=== PATIENT | male | born 1955 | race Caucasian/White ===

== ENCOUNTER 2016-08-07 06:25 | Observation (INO) | payer OTHER ==
[2016-08-07] MEDS ORDERED: ACETAMINOPHEN TAB 500 MG TAB PO STA (06:47)
--- NOTE | 2016-08-07 06:47 | ED ---
General Adult HPI - General Source: patient Mode of arrival: ambulatory Limitations: no limitations <Chel Hassan - Last Filed: 08/07/16 06:59> <Otis Zuniga - Last Filed: 08/07/16 09:07> - General Chief complaint: Chest Pain Stated complaint: Chest pain Time Seen by Provider: 08/07/16 06:37 - History of Present Illness Initial comments: 61 years old gentleman been feeling pretty lousy had a chest pain last night on the left side then he got dizzy then he was nauseous and then now after midnight he had a quite a bit of shakes when he was in the bed he had a hard time getting warm and he had a fever as well and he has a fever on arrival to the ER. He has headache no neck stiffness his muscles pain cramping for the last 34 days no chest pain or shortness of breath no pleuritic chest pain no abdominal pain no frequency urgency dysuria he has been nauseous (Chel Hassan) - Related Data Home Medications Medication Instructions Recorded Confirmed Anastrozole [Arimidex] 0.5 mg PO Q72H 08/07/16 08/07/16 Aspirin EC [Ecotrin] 325 mg PO DAILY 08/07/16 08/07/16 Doxazosin Mesylate 2 mg PO HS 08/07/16 08/07/16 Ergocalciferol (Vitamin D2) 50,000 unit PO MO 08/07/16 08/07/16 [Vitamin D2] Indapamide [Lozol] 2.5 mg PO DAILY 08/07/16 08/07/16 Losartan Potassium 100 mg PO DAILY 08/07/16 08/07/16 Metoprolol Succinate [Toprol XL] 50 mg PO BID 08/07/16 08/07/16 Potassium Chloride [Klor-Con 20] 20 meq PO BID 08/07/16 08/07/16 Spironolactone 50 mg PO DAILY 08/07/16 08/07/16 Testosterone Cypionate 100 mg IM Q14D 08/07/16 08/07/16 [Depo-Testosterone] amLODIPine [Norvasc] 5 mg PO DAILY 08/07/16 08/07/16 cloNIDine 0.3 MG/24HR PATCH 1 patch TRANSDERM MO 08/07/16 08/07/16 [Catapres-Tts 0.3MG Patch] Allergies Allergy/AdvReac Type Severity Reaction Status Date / Time Penicillins Allergy Unknown Verified 08/07/16 07:56 Childhood amlodipine [From Lotrel] AdvReac ITCHING/SWE Verified 08/07/16 07:56 LLING benazepril [From Lotrel] AdvReac ITCHING/SWE Verified 08/07/16 07:56 LLING Review of Systems ROS Other: All systems not noted in ROS Statement are negative. <Chel Hassan - Last Filed: 08/07/16 06:59> ROS Other: All systems not noted in ROS Statement are negative. <Otis Zuniga - Last Filed: 08/07/16 09:07> ROS Statement: Those systems with pertinent positive or pertinent negative responses have been documented in the HPI. Past Medical History Past Medical History: Hypertension, Myocardial Infarction (OK) History of Any Multi-Drug Resistant Organisms: None Reported Past Surgical History: Heart Catheterization With Stent, Joint Replacement, Orthopedic Surgery Additional Past Surgical History / Comment(s): Bilateral Elbow Surgery; Left knee Replacement; Right knee arthroscopy Past Psychological History: No Psychological Hx Reported Smoking Status: Never smoker Past Alcohol Use History: None Reported Past Drug Use History: None Reported <Chel Hassan - Last Filed: 08/07/16 06:59> General Exam Limitations: no limitations <Chel Hassan - Last Filed: 08/07/16 06:59> <Otis Zuniga - Last Filed: 08/07/16 09:07> - General Exam Comments Initial Comments: General: The patient is awake and alert, in no distress, and does not appear acutely ill. Skin: Skin is warm and dry and no rashes or lesions are noted. Eye: Pupils are equal, round and reactive to light, extra-ocular movements are intact; there is normal conjunctiva bilaterally. Ears, nose, mouth and throat: There are moist mucous membranes and no oral lesions. Neck: The neck is supple, there is no tenderness Cardiovascular: There is a regular rate and rhythm. No murmur, rub or gallop is appreciated. Respiratory: To auscultation bilateral, decreased breath sounds at the bases Gastrointestinal: Soft, non-distended, non-tender abdomen without masses or organomegaly noted. There is no rebound or guarding present. Bowel sounds are unremarkable. Back: There is no tenderness to palpation in the midline. There is no obvious deformity. Musculoskeletal: Normal ROM, no tenderness, There is no pedal edema. There is no calf tenderness or swelling. No cords were appreciated. Neurological: CN II-XII intact, Cranial nerves III through XII are intact. There are no obvious motor or sensory deficits. Coordination appears grossly intact. Speech is normal. Psychiatric: Cooperative, appropriate mood & affect, normal judgment. (Chel Hassan) Course <Chel Hassan - Last Filed: 08/07/16 06:59> <Otis Zuniga - Last Filed: 08/07/16 09:07> Vital Signs 08/07/16 08/07/16 08/07/16 06:33 08:00 08:30 Temperature 101.4 F H Pulse Rate 106 H 78 72 Respiratory 18 18 18 Rate Blood Pressure 145/98 137/77 127/74 O2 Sat by Pulse 93 L 93 L 95 Oximetry - Reevaluation(s) Reevaluation #1: 08/07/16 06:59 Patient's labs have been ordered and morning shift Dr. Zuniga will follow-up on the and patient is endorsed to Dr. Zuniga (Chel Hassan) EKG Findings - EKG Comments: EKG Findings:: EKG is a normal sinus rhythm ventricular rate is 99 UT interval is 160 QRS duration is 1 or 2 QT/QTc is 352/451 review of this EKG reveals some slight ST depression in lead [address] elevation or ST depression noticed in of the leads <Chel Hassan - Last Filed: 08/07/16 06:59> Medical Decision Making - Lab Data Result diagrams: 08/07/16 06:45 <Chel Hassan - Last Filed: 08/07/16 06:59> - Lab Data Result diagrams: 08/07/16 06:45 08/07/16 06:45 - Radiology Data Radiology results: report reviewed (Review the imaging shows no evidence of acute findings.), image reviewed <Otis Zuniga - Last Filed: 08/07/16 09:07> - Medical Decision Making I did discuss findings with the patient patient has no immediately obvious source for his fever. 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 He currently has no chest pain he will be admitted for evaluation of his chest pain. Influenza swab will be ordered. (Otis Zuniga) - Lab Data Lab Results 08/07/16 08/07/16 08/07/16 Range/Units 06:45 06:45 06:45 WBC 10.8 H (3.8-10.6) k/uL RBC 5.29 (4.30-5.90) m/uL Hgb 16.0 (13.0-17.5) gm/dL Hct 47.8 (39.0-53.0) % MCV 90.4 (80.0-100.0) fL MCH 30.2 (25.0-35.0) pg MCHC 33.4 (31.0-37.0) g/dL RDW 14.7 (11.5-15.5) % Plt Count 249 (150-450) k/uL Neutrophils % 80 % Lymphocytes % 11 % Monocytes % 4 % Eosinophils % 3 % Basophils % 1 % Neutrophils # 8.6 H (1.3-7.7) k/uL Lymphocytes # 1.2 (1.0-4.8) k/uL Monocytes # 0.5 (0-1.0) k/uL Eosinophils # 0.3 (0-0.7) k/uL Basophils # 0.1 (0-0.2) k/uL PT (9.0-12.0) sec INR (<1.1) APTT (22.0-30.0) sec Sodium 140 (137-145) mmol/L Potassium 4.2 (3.5-5.1) mmol/L Chloride 107 (98-107) mmol/L Carbon Dioxide 22 (22-30) mmol/L Anion Gap 11 mmol/L BUN 18 (9-20) mg/dL Creatinine 0.89 (0.66-1.25) mg/dL Est GFR (MDRD) Af Amer >60 (>60 ml/min/1.73 sqM) Est GFR (MDRD) Non-Af >60 (>60 ml/min/1.73 sqM) Glucose 116 H (74-99) mg/dL Plasma Lactic Acid Mike (0.7-2.0) mmol/L Calcium 9.9 (8.4-10.2) mg/dL Total Bilirubin 1.3 (0.2-1.3) mg/dL AST 32 (17-59) U/L ALT 49 (21-72) U/L Alkaline Phosphatase 72 (38-126) U/L Total Creatine Kinase 139 (55-170) U/L CK-MB (CK-2) 1.1 (0.0-2.4) ng/mL CK-MB (CK-2) Rel Index 0.8 Troponin I 0.016 (0.000-0.034) ng/mL Total Protein 7.5 (6.3-8.2) g/dL Albumin 4.4 (3.5-5.0) g/dL Urine Color Urine Appearance (Clear) Urine pH (5.0-8.0) Ur Specific Creole (1.001-1.035) Urine Protein (Negative) Urine Glucose (UA) (Negative) Urine Ketones (Negative) Urine Blood (Negative) Urine Nitrite (Negative) Urine Bilirubin (Negative) Urine Urobilinogen (<2.0) mg/dL Ur Leukocyte Esterase (Negative) Urine RBC (0-5) /hpf Urine WBC (0-5) /hpf Ur Squamous Epith Cells (0-4) /hpf Urine Mucus (None) /hpf 08/07/16 08/07/16 08/07/16 Range/Units 06:45 06:45 08:07 WBC (3.8-10.6) k/uL RBC (4.30-5.90) m/uL Hgb (13.0-17.5) gm/dL Hct (39.0-53.0) % MCV (80.0-100.0) fL MCH (25.0-35.0) pg MCHC (31.0-37.0) g/dL RDW (11.5-15.5) % Plt Count (150-450) k/uL Neutrophils % % Lymphocytes % % Monocytes % % Eosinophils % % Basophils % % Neutrophils # (1.3-7.7) k/uL Lymphocytes # (1.0-4.8) k/uL Monocytes # (0-1.0) k/uL Eosinophils # (0-0.7) k/uL Basophils # (0-0.2) k/uL PT 10.9 (9.0-12.0) sec INR 1.1 (<1.1) APTT 23.6 (22.0-30.0) sec Sodium (137-145) mmol/L Potassium (3.5-5.1) mmol/L Chloride (98-107) mmol/L Carbon Dioxide (22-30) mmol/L Anion Gap mmol/L BUN (9-20) mg/dL Creatinine (0.66-1.25) mg/dL Est GFR (MDRD) Af Amer (>60 ml/min/1.73 sqM) Est GFR (MDRD) Non-Af (>60 ml/min/1.73 sqM) Glucose (74-99) mg/dL Plasma Lactic Acid Mike 1.8 (0.7-2.0) mmol/L Calcium (8.4-10.2) mg/dL Total Bilirubin (0.2-1.3) mg/dL AST (17-59) U/L ALT (21-72) U/L Alkaline Phosphatase (38-126) U/L Total Creatine Kinase (55-170) U/L CK-MB (CK-2) (0.0-2.4) ng/mL CK-MB (CK-2) Rel Index Troponin I (0.000-0.034) ng/mL Total Protein (6.3-8.2) g/dL Albumin (3.5-5.0) g/dL Urine Color Yellow Urine Appearance Clear (Clear) Urine pH 5.5 (5.0-8.0) Ur Specific Creole 1.020 (1.001-1.035) Urine Protein Negative (Negative) Urine Glucose (UA) Negative (Negative) Urine Ketones Negative (Negative) Urine Blood Trace H (Negative) Urine Nitrite Negative (Negative) Urine Bilirubin Negative (Negative) Urine Urobilinogen <2.0 (<2.0) mg/dL Ur Leukocyte Esterase Negative (Negative) Urine RBC 1 (0-5) /hpf Urine WBC <1 (0-5) /hpf Ur Squamous Epith Cells <1 (0-4) /hpf Urine Mucus Rare H (None) /hpf Disposition <Chel Hassan - Last Filed: 08/07/16 06:59> <Otis Zuniga - Last Filed: 08/07/16 09:07> Clinical Impression: Unstable angina pectoris, Fever of unknown origin (FUO) Disposition: ADMITTED IP TO THIS HOSP Condition: Stable Referrals: Bryce Astudillo MD [Primary Care Provider] - 1-2 days
[2016-08-07] MEDS: SODIUM CHLORIDE 0.9% 500 ML IV SCH ×2 (06:56→08:00)
[2016-08-07 06:57] LABS: Basophils # (A) 0.1 k/uL (0-0.2); Basophils % (A) 1 %; CH 30.5; CHCM 33.9; Eosinophils # (A) 0.3 k/uL (0-0.7); Eosinophils % (A) 3 %; HCT 47.8 % (39.0-53.0); HDW 2.71; Luc % (Auto) 1; Lymphocytes # (A) 1.2 k/uL (1.0-4.8); Lymphocytes % (A) 11 %; MCH 30.2 pg (25.0-35.0); MCHC 33.4 g/dL (31.0-37.0); MCV 90.4 fL (80.0-100.0); Mean Platelet Volume 7.1; Monocytes # (A) 0.5 k/uL (0-1.0); Monocytes % (A) 4 %; Neutrophils # (A) 8.6 k/uL (1.3-7.7); Neutrophils % (A) 80 %; RBC 5.29 m/uL (4.30-5.90); RDW 14.7 % (11.5-15.5); WBC 10.8 k/uL (3.8-10.6); WBC (Perox) 10.74
--- NOTE | 2016-08-07 07:01 | XR ---
EXAMINATION TYPE: XR chest 2V DATE OF EXAM: 08/07/2016 COMPARISON: 06/18/2010 HISTORY: Shortness of breath TECHNIQUE: Frontal and lateral views of the chest are obtained. FINDINGS: Scattered senescent parenchymal changes noted. Hyperinflation compatible with COPD. No evidence for infiltrate. No evidence for atelectasis. Heart size is stable. Mediastinal structures are stable and grossly unremarkable. No evidence for hilar prominence. Degenerative changes dorsal spine. IMPRESSION: 1. No evidence for acute pulmonary disease.
[2016-08-07 07:08] LABS: ALT 49 U/L (21-72); AST 32 U/L (17-59); Alkaline Phosphatase 72 U/L (38-126); Anion Gap 11 mmol/L; Blood Urea Nitrogen 18 mg/dL (9-20); Calcium 9.9 mg/dL (8.4-10.2); Carbon Dioxide 22 mmol/L (22-30); Chloride 107 mmol/L (98-107); Glucose 116 mg/dL (74-99); Non-African American GFR(MDRD) >60 (>60 ml/min/1.73 sqM); Potassium 4.2 mmol/L (3.5-5.1); Sodium 140 mmol/L (137-145); Total Bilirubin 1.3 mg/dL (0.2-1.3); Total Protein 7.5 g/dL (6.3-8.2)
[2016-08-07 07:13] LABS: INR 1.1 (<1.1); Partial Thromboplastin Time 23.6 sec (22.0-30.0); Prothrombin Time 10.9 sec (9.0-12.0)
[2016-08-07 07:54] LABS: Creatine Kinase MB 1.1 ng/mL (0.0-2.4); Troponin I 0.016 ng/mL (0.000-0.034)
[2016-08-07 08:22] LABS: Appearance,Urine Clear (Clear); Bilirubin,Urine Negative (Negative); Glucose,Urine (UA) Negative (Negative); Ketones,Urine Negative (Negative); Leukocyte Esterase,Urine Negative (Negative); Mucus,Urine Rare /hpf; Nitrite,Urine Negative (Negative); PH, Urine 5.5 (5.0-8.0); Particle Count 1535; Protein,Urine Negative (Negative); RBC,Urine 1 /hpf (0-5); Squamous Epithelial Cell,Urine <1 /hpf (0-4); UA Billing (MACRO vs. MICRO) MICRO; Urobilinogen,Urine <2.0 mg/dL (<2.0); WBC,Urine <1 /hpf (0-5)
[2016-08-07] MEDS ORDERED: NITROGLYCERIN SL TABS 0.4 MG TAB SUBLINGUAL PRN (09:08)
[2016-08-07] MEDS ORDERED: HEPARIN SODIUM,PORCINE 5,000 UNIT/ML 1 ML VIAL IV ONE (09:08)
[2016-08-07] MEDS ORDERED: HEPARIN SODIUM,PORCINE/D5W PMX 25,000 UNIT in DEXTROSE/WATER 1 500ML.BAG IV SCH (09:15)
[2016-08-07] MEDS: SODIUM CHLORIDE 0.9% 1,000 ML IV SCH (09:26)
[2016-08-07] MEDS ORDERED: NITROGLYCERIN OINT 1 INCH/GM PACKET TOPICAL SCH (12:00)
[2016-08-07] MEDS ORDERED: ANASTROZOLE 1 MG TAB PO SCH (12:00)
[2016-08-07] MEDS ORDERED: LOSARTAN 50 MG TAB PO STA (12:36)
[2016-08-07] MEDS ORDERED: METOPROLOL SUCCINATE (ER) 50 MG TAB.ER.24H PO STA (12:37)
[2016-08-07] MEDS ORDERED: POTASSIUM CHLORIDE ER 20 MEQ TAB.ER PO STA (12:37)
[2016-08-07] MEDS ORDERED: SPIRONOLACTONE 25 MG TAB PO STA (12:37)
[2016-08-07] MEDS ORDERED: INDAPAMIDE 2.5 MG TAB PO ONE (12:45)
[2016-08-07] MEDS: ONDANSETRON 4 MG/2 ML VIAL IVP PRN ×2 (13:11→19:40)
[2016-08-07 13:46] LABS: Creatine Kinase MB 1.2 ng/mL (0.0-2.4); Troponin I 0.013 ng/mL (0.000-0.034)
--- NOTE | 2016-08-07 13:59 | CONS ---
DATE OF CONSULTATION: CHIEF COMPLAINT: Chest pain. This is a 61-year-old gentleman with history of coronary artery disease, status post angioplasty, hypertension, and dyslipidemia who presented to hospital complaining of chest discomfort. He also has fever with chills. His discomfort is left-sided, sharp. He does not have any diaphoresis and his pain is unrelated to exertion. At the time of my evaluation, he appears comfortable at rest and is free of symptoms. White cell count is elevated. Temperature is mildly elevated. EKG shows sinus rhythm with nonspecific ST-T wave changes. Cardiac enzyme, so far has been negative. His C-reactive protein is elevated. Influenza testing is negative. Past medical history is significant for coronary artery disease, status post angioplasty, hypertension. Medications include Arimidex, Catapres 0.3 mg, Norvasc 5 q. daily, testosterone, Aldactone, K-Dur, Toprol-XL 50 b.i.d., losartan 100 q. daily, Lozol, vitamin D, aspirin and doxazosin. Patient is allergic to LOTREL and PENICILLIN. Family history is negative for premature coronary artery disease. Social history is negative for current smoking, EtOH abuse or drug abuse. REVIEW OF SYSTEMS: HEENT is unremarkable. CARDIAC: As described above. RESPIRATORY: As described above. GI: Negative. GENITOURINARY: Negative. ALLERGY/IMMUNOLOGY: Negative. SKIN: Negative. MUSCULOSKELETAL: Negative. ENDOCRINE: Negative. DERMATOLOGIC: Negative. ONCOLOGICAL: Negative. CONSTITUTIONAL: Significant for fever, chills. The rest of the system review is not relevant. On exam, T-max is 99.2, heart rate is 78. Blood pressure 139/80, O2 sat is 96% on room air. There is no jugular venous distention. Carotid upstroke is normal. There is no bruit. Chest exam reveals good air entry bilaterally. Heart exam reveals first and second heart sounds. No gallop. No murmur, no rub. Abdomen is soft, nontender. Exam of the extremities did not reveal edema. Peripheral pulses are felt. Labs show a hemoglobin of 16, platelet count is 249. Potassium is 4.2. Creatinine is 0.89. EKG does not reveal acute ischemic changes. ASSESSMENT: 1. Atypical chest pain, probably musculoskeletal. 2. Coronary artery disease, status post angioplasty. 3. Febrile illness. PLAN: Will obtain serial CPKs and troponins. If these are negative, please stop the heparin. Will obtain a 2-D echo on him tomorrow morning. The afebrile illness is currently being worked up by Dr. Puga, the hospitalist.
[2016-08-07] MEDS: amLODIPine 10 MG TAB PO SCH (14:57)
[2016-08-07] MEDS: POTASSIUM CHLORIDE ER 20 MEQ TAB.ER PO SCH (19:40)
[2016-08-07] MEDS: METOPROLOL SUCCINATE (ER) 50 MG TAB.ER.24H PO SCH (19:40)
--- NOTE | 2016-08-07 19:55 | HP ---
DATE OF ADMISSION: 08/07/2016 PRESENTING COMPLAINT: Fever. HISTORY OF PRESENTING COMPLAINT: This is a 61-year-old patient of Dr. Astudillo whose chronic stable medical conditions include coronary artery disease with stent [place] [address] Deysi Ndiaye, hypertension, osteoarthritis, peripheral artery disease. Patient presented with 24 hours of chills, shaking. Denies any urinary symptoms. Denies any cough. No skin changes. Patient has a slight headache. No nausea or vomiting. No change in vision. Patient has slight discomfort in the left chest wall; very unlike his previous cardiac presentation. There was no sweating. No shortness of breath. Hence patient is admitted. Patient had a second episode of having some chills after I saw this patient this morning. REVIEW OF SYSTEMS: CONSTITUTIONAL: Chills, febrile. HEENT: None. RESPIRATORY: None. CARDIOVASCULAR: No precordial pain. GASTROINTESTINAL: None. GENITOURINARY: None. MUSCULOSKELETAL: Arthritic pain, especially in the knees. DERMATOLOGICAL: None. HEMATOLOGICAL: None. LYMPHATICS: None. PSYCHIATRY: None. NEUROLOGICAL: None. PAST HISTORY: 1. Coronary artery disease with stent in 2007. 2. Hypertension. 3. Osteoarthritis. 4. Peripheral artery disease. PAST SURGICAL HISTORY: 1. Cardiac catheterization with stent. 2. Joint replacement. 3. ( ) left elbow surgery. 4. Left knee replacement. 5. Right knee arthroscopy. 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 Smoked for 20 years; stopped in 2005. No alcohol. FAMILY HISTORY: Father had dementia. HOME MEDICATIONS: 1. Arimidex 0.5 mg q.72 hours. 2. Catapres 0.3 mg patch. 3. Norvasc 5 mg a day. 4. Depo-testosterone 100 mg IM q.14 days. 5. Aldactone 50 mg a day. 6. Potassium 20 mEq b.i.d. 7. Toprol XL 50 mg b.i.d. 8. Losartan 100 mg p.o. daily. 9. Lozol 2.5 mg p.o. daily. 10. Vitamin D2, 50,000 units p.o. on Friday. 11. Doxazosin 2 mg p.o. at bedtime. 12. Aspirin 325 p.o. daily. ALLERGIES: 1. PENICILLIN. 2. AMLODIPINE. 3. BENAZEPRIL. On examination, T-max 101.4, pulse 106, respiration 18, blood pressure 145/98, pulse ox 93% on room air on presentation. GENERAL APPEARANCE: Well built; BMI of 40.3. Sitting up. Comfortable. EYES: Pupils equal. Conjunctivae normal. HEENT: Oral cavity normal. NECK: JVD not raised. Mass not palpable. RESPIRATORY: Effort normal. Lungs are clear. CARDIOVASCULAR: First and second sounds normal. No edema. ABDOMEN: Soft, nontender. Liver and spleen not palpable. LYMPHATIC: No lymph node palpable in neck or axillae. PSYCHIATRY: Alert and oriented x3. Mood and affect normal. NEUROLOGICAL: Pupils equal. Cranial nerves grossly intact. Power and sensation grossly intact. INVESTIGATIONS: White count 10.8, hemoglobin 16. Potassium 4.2. BUN and creatinine are normal. CRP is 18.2. UA negative for nitrite, leukocyte esterase. Influenza A and B negative. EKG normal sinus rhythm. Chest x-ray nil acute. ASSESSMENT: 1. Acute febrile illness with no respiratory and no urinary symptoms. No skin changes. Patient just felt tired. This could be an acute viral syndrome. At this point, patient looks rather comfortable. Will hold off using any empiric antibiotic therapy. Check fever regularly. 2. Atypical chest pain, probably musculoskeletal. 3. Coronary artery disease with history of stent in 2007. 4. Essential hypertension. 5. Primary osteoarthritis, especially in the knees. 6. Peripheral artery disease. 7. Morbid obesity; body mass index of 40.3. PLAN: Patient's blood cultures were done. Cardiology was consulted, though this pain seems to be very atypical. Will also get an ID opinion. Will hold off any antibiotic at this point, as there is no obvious source. Care was discussed with the patient and his at the bedside.
[2016-08-07 20:02] LABS: Creatine Kinase MB 0.9 ng/mL (0.0-2.4); Troponin I 0.019 ng/mL (0.000-0.034)
[2016-08-07] MEDS ORDERED: DOXAZOSIN 2 MG TAB PO SCH (21:00)
[2016-08-07] MEDS ORDERED: LEVOFLOXACIN 750 MG TAB PO SCH (22:30)
[2016-08-07] MEDS ORDERED: AZITHROMYCIN 500 MG TAB PO SCH (23:00)
--- NOTE | 2016-08-08 07:27 | XR ---
EXAMINATION TYPE: XR chest 2V DATE OF EXAM: 08/08/2016 COMPARISON: Chest x-ray from yesterday. HISTORY: Fever and pneumonia. TECHNIQUE: Frontal and lateral views of the chest are obtained. FINDINGS: There is chronic parenchymal change without suspicious new focal air space opacity, pleura l effusion, or pneumothorax seen. The cardiac silhouette size is upper limits of normal with ectatic aorta redemonstrated. The osseous structures are intact. IMPRESSION: Chronic changes without suspicious acute pulmonary process. No significant change from p rior.
[2016-08-08 08:17] LABS: Basophils % (A) 1 %; CH 30.4; CHCM 34.3; Eosinophils # (A) 0.1 k/uL (0-0.7); Eosinophils % (A) 2 %; HCT 45.3 % (39.0-53.0); HDW 2.88; HGB 15.5 gm/dL (13.0-17.5); Luc # (Auto) 0.23; Luc % (Auto) 4; Lymphocytes # (A) 1.7 k/uL (1.0-4.8); Lymphocytes % (A) 29 %; MCH 30.5 pg (25.0-35.0); MCHC 34.2 g/dL (31.0-37.0); MCV 89.2 fL (80.0-100.0); Monocytes # (A) 0.6 k/uL (0-1.0); Monocytes % (A) 9 %; Neutrophils # (A) 3.4 k/uL (1.3-7.7); Neutrophils % (A) 56 %; RBC 5.08 m/uL (4.30-5.90); RDW 14.5 % (11.5-15.5); WBC 6.1 k/uL (3.8-10.6); WBC (Perox) 5.89
[2016-08-08 08:31] LABS: Anion Gap 10 mmol/L; Blood Urea Nitrogen 15 mg/dL (9-20); Carbon Dioxide 27 mmol/L (22-30); Chloride 104 mmol/L (98-107); Cholesterol 176 mg/dL (<200); Glucose 109 mg/dL (74-99); HDL Cholesterol 35 mg/dL (40-60); Non-African American GFR(MDRD) >60 (>60 ml/min/1.73 sqM); Sodium 141 mmol/L (137-145); Triglycerides 172 mg/dL (<150)
[2016-08-08] MEDS: amLODIPine 10 MG TAB PO SCH (08:44)
[2016-08-08] MEDS: POTASSIUM CHLORIDE ER 20 MEQ TAB.ER PO SCH (08:45)
[2016-08-08] MEDS: METOPROLOL SUCCINATE (ER) 50 MG TAB.ER.24H PO SCH (08:45)
--- NOTE | 2016-08-08 08:48 | PN ---
A 61-year-old gentleman is admitted to hospital primarily with febrile illness and Cardiology had been consulted for chest pain. His chest discomfort is atypical, probably musculoskeletal. He has had 3 sets of cardiac enzymes that are negative. At the time of my evaluation this morning, he appears comfortable at rest and is free of chest pain. On exam, T-max is 101.9. Vital signs are stable. There is no jugular venous distention. Chest exam reveals diminished air entry at the bases. Heart exam reveals first and second heart sounds. No gallop. Abdomen is soft. Exam of the extremities did not reveal edema. Peripheral pulses are felt. Troponins are negative. ASSESSMENT: 1. Atypical chest pain, probably musculoskeletal. 2. History of coronary artery disease. PLAN: Patient is doing well this morning. Will review the echocardiogram once the results are available. From my standpoint, he can be discharged home and outpatient followup arranged with Dr. Deysi Ndiaye. I am going to stop the IV heparin at this time.
[2016-08-08] MEDS ORDERED: amLODIPine 5 MG TAB PO SCH (09:00)
[2016-08-08] MEDS ORDERED: LOSARTAN 50 MG TAB PO SCH (09:00)
[2016-08-08] MEDS ORDERED: INDAPAMIDE 2.5 MG TAB PO SCH (09:00)
[2016-08-08] MEDS ORDERED: ASPIRIN 325 MG TAB PO SCH ×2 (09:00)
[2016-08-08] MEDS ORDERED: SPIRONOLACTONE 25 MG TAB PO SCH (09:00)
[2016-08-08] MEDS ORDERED: HEPARIN SODIUM,PORCINE 5,000 UNIT/ML 1 ML VIAL SQ SCH (09:00)
--- NOTE | 2016-08-08 10:52 | CONS ---
DATE OF CONSULTATION: DATE OF SERVICE: 08/07/2016 REASON FOR CONSULTATION: Fever of unknown origin. 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 The patient said that he woke up around 12:30 in the morning with rigors and chills. Patient has significant rigors and chills with associated headache. The headache was mostly generalized. The patient denies any photophobia or any nausea or vomiting. The patient denies having any URI symptom. Denies significant shortness of breath or cough. The patient did have some left-sided chest pain, described to be more of a dull aching pain. No abdominal pain. No nausea, no vomiting. No diarrhea. No burning or frequency of urine. With these symptoms, the patient was evaluated by the ER physician. The patient did have a chest x-ray that was reported to be no evidence of acute pulmonary disease. The patient did have a fever of 101.4 degrees Fahrenheit. UA has been done, which was negative. The patient did have influenza A and B, that was negative. White count was slightly elevated at 10.8 with CRP of 18.2. The patient has been admitted to the hospital. ID was consulted for further recommendation regarding his fever and antibiotic therapy. REVIEW OF SYSTEMS: CONSTITUTIONAL: Positive for weakness and a fever. EYES: No complaint. ENT: No complaint. RESPIRATORY: As per HPI. CARDIOVASCULAR: As per HPI. GENITOURINARY: No complaint. GASTROINTESTINAL: No complaint. MUSCULOSKELETAL: No complaint. INTEGUMENTARY: No complaint. PSYCHOLOGICAL: No complaint. ENDOCRINE: No complaint. NEUROLOGICAL: No complaint. PAST MEDICAL HISTORY: Significant for hypertension and LA. PAST SURGICAL HISTORY: PTCA with stent placement, joint replacement, bilateral elbow surgery, right knee arthroscopy. SOCIAL HISTORY: No history of smoking, drinking, or drug use. 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 FAMILY HISTORY: No pertinent findings noticed. Allergies to PENICILLIN, AMLODIPINE BENAZEPRIL, mostly with rash, no history of anaphylaxis. Medications currently include the patient is on Norvasc, Arimidex, aspirin, Catapres, Cardura, vitamin D2, heparin, Lozol, Cozaar, Toprol XL, Nitrostat, Zofran, K-Dur and Aldactone. On examination, blood pressure is 110/79 with a pulse of 91, temperature of 101.9. He is 98% on room air. General description is a middle age male lying in bed in no distress. No tachypnea or accessory muscle of respiration use. HEENT examination showed no pallor or scleral icterus. Oral mucous membranes dry. Minimal pharyngeal erythema. NECK: Trachea central. No thyromegaly. LUNGS: Unlabored breathing. Clear to auscultation anteriorly. No wheeze or crackles. HEART: S1, S2. Regular rate and rhythm . ABDOMEN: Soft, no tenderness. No guarding or rigidity. EXTREMITIES: No edema of feet. SKIN EXAMINATION: No rash or mass palpable. NEUROLOGICAL: The patient is awake, alert and oriented x3 and no signs of meningeal irritation. LABS: Hemoglobin is 16, white count of 10.8 with a BUN of 18, creatinine 0.89. Electrolytes have been normal. Liver enzymes are normal. CRP elevated 18.2. Urine has been negative. Influenza A and B serology has been. DIAGNOSTIC IMPRESSION AND PLAN: Patient with fever with no significant localized symptoms except the headache; however, the patient does not look toxic and did not have significant elevated white count. A question of possible aseptic meningitis needs to be ruled out. Other etiologies could be an early pneumonia, as no other clinical focus of infection abdomen was soft on clinical examination. Urine has been negative. No evidence of any cellulitis or joint swelling. PLAN: 1. start the patient on Rocephin 1 gram IV piggyback daily and Levaquin 750 daily. 2. Repeat a chest x-ray PA and lateral tomorrow. 3. If the fever persists and repeat chest x-ray is negative. will recommend obtaining a CSF examination. 4. Will follow up on his clinical condition and cultures to further adjust the medication if needed. Thank you for this consultation. Will follow this patient along with you. MICHAEL
--- NOTE | 2016-08-08 12:01 | ECHOF ---
Referral Reason:chest pain MEASUREMENTS -------- HEIGHT: 188.0 cm WEIGHT: 153.8 kg BP: 139/87 RVIDd: 3.9 cm (< 3.3) IVSd: 1.2 cm (0.6 - 1.1) LVIDd: 5.2 cm (3.9 - 5.3) LVPWd: 1.3 cm (0.6 - 1.1) IVSs: 2.3 cm LVIDs: 3.0 cm LVPWs: 1.8 cm LA Diam: 4.5 cm (2.7 - 3.8) Ao Diam: 3.9 cm (2.0 - 3.7) AV Cusp: 2.3 cm (1.5 - 2.6) LA Diam: 4.8 cm (2.7 - 3.8) MV EXCURSION: 27.679 mm (> 18.000) MV EF SLOPE: 85 mm/s (70 - 150) EPSS: 0.3 cm MV E Clark: 0.45 m/s MV DecT: 323 ms MV A Clark: 0.79 m/s MV E/A Ratio: 0.56 RAP: 5.00 mmHg RVSP: 31.05 mmHg FINDINGS -------- Sinus rhythm. This was a technically adequate study. Morbid Obesity There is mild concentric left ventricular hypertrophy. Overall left ventricular systolic function is low-normal with, an EF between 50 - 55 %. The right ventricle is normal in size. The left atrial size is normal. The right atrial size is normal. 1.5MG OF DEFINITY UTLIZED: 2 OR MORE WALL SEGMENTS NOT VISUALIZED. There is mild aortic valve sclerosis. There is no evidence of aortic regurgitation. Mild mitral annular calcification present. Mild mitral regurgitation is present. Mild tricuspid regurgitation present. There is no evidence of pulmonary hypertension. The right ventricular systolic pressure, as measured by Doppler, is 31.05mmHg. The pulmonic valve was not well visualized. Pulmonic valve appears structurally normal. The aortic root size is normal. There is no pericardial effusion. CONCLUSIONS -------- 1. There is mild concentric left ventricular hypertrophy. 2. The pulmonic valve was not well visualized. 3. Overall left ventricular systolic function is low-normal with, an EF between 50 - 55 %. 4. 1.5MG OF DEFINITY UTLIZED: 2 OR MORE WALL SEGMENTS NOT VISUALIZED. 5. There is mild aortic valve sclerosis. 6. Mild mitral annular calcification present. 7. Mild mitral regurgitation is present. 8. Mild tricuspid regurgitation present. 9. There is no evidence of pulmonary hypertension. 10. The right ventricular systolic pressure, as measured by Doppler, is 31.05mmHg. ELEPHANT KEEPER: Faith Saeed RDCS
[2016-08-08 16:12] VITALS: BP 118/81; PULSE 58; RESP 18; TEMP 98
[2016-08-08] MEDS: SODIUM CHLORIDE 0.9% 1,000 ML IV SCH (17:44)
--- NOTE | 2016-08-08 17:59 | PN ---
DATE OF SERVICE: 08/08/2016 REASON FOR FOLLOWUP: Fever and a question of early pneumonia. INTERVAL HISTORY: The patient did spike a fever last night, for which the patient did have repeat blood culture obtained. At that time he was started on Rocephin and azithromycin. The patient's fever has resolved. The patient said he is feeling much better today. The patient denies having any URI symptoms and no significant chest pain. No cough or abdominal pain. No diarrhea. On examination, blood pressure 106/65 with a pulse of 70, temperature 97.8. He is 93% on room air. General description is a middle-aged male lying in bed in no distress. RESPIRATORY SYSTEM: Unlabored breathing. Clear to auscultation anteriorly. HEART: S1, S2. Regular rate and rhythm. ABDOMEN: Soft. No tenderness. LABS: Hemoglobin is 15.5, white count 6.1 with a BUN of 15, creatinine 1.0. DIAGNOSTIC IMPRESSION AND PLAN: Patient with a fever with a questionable viral versus early clinical pneumonia; overall improvement on Rocephin and Zithromax. Plan to finish therapy with p.o. Ceftin 500 mg twice a day for another 7 to 10 days with outpatient followup.
--- NOTE | 2016-08-08 21:13 | P.DS ---
Providers Date of admission: 08/07/16 09:08 Attending physician: Nils Puga Consults: 08/07/16 09:08 Consult Physician Urgent Consulting Provider: Carmen Rodriguez Consult Reason/Comments: Chest pain, fever Do you want consulting provider notified?: Yes 08/07/16 15:00 Consult Physician Routine Consulting Provider: Jazmyne Hassan Consult Reason/Comments: fever Do you want consulting provider notified?: Yes Primary care physician: Bryce Mark [facility] Course: FINAL DIAGNOSES: 1. Acute febrile illness with no respiratory or urinary symptoms no skin changes. Likely acute viral syndrome. 2. Atypical chest pain, probably musculoskeletal. 3. Coronary artery disease with history of stent in 2007. 4. essential hypertension 5. Primary osteoarthritis especially in the knees. 6. Peripheral arterial disease 7. Morbid obesity, body mass index of 40.3 HOSPITAL COURSE: 61-year-old patient who presented with left-sided chest pain. Patient had chills and fever headache and felt poorly. EKG done, IV fluids started, labs drawn and sent, cardiology consulted, infectious disease consulted. Spiked a fever, culture sent, antibiotics ordered and given. Today, patient feels much better, afebrile, eating his diet, ambulatory in the hallway. Infectious disease ordered antibiotics to continue as an outpatient. Patient to be discharged home. PHYSICAL EXAM: CONSTITUTIONAL: Afebrile RESPIRATORY: Lung sounds diminished bilaterally, effort normal CARDIOVASCULAR: First and second sound noted no edema PSYCHIATRY: Alert and oriented 3 mood and affect normal Patient was seen and examined by nurse practitioner Hue Elias in all elements of the case discussed with attending Dr. Puga. Patient Condition at Discharge: Stable Plan - Discharge Summary New Discharge Prescriptions: New Cefuroxime Axetil [Ceftin] 500 mg PO BID #10 tab Nitroglycerin Sl Tabs [Nitrostat] 0.4 mg SUBLINGUAL Q5M PRN #20 tab PRN Reason: Chest Pain Continue Indapamide [Lozol] 2.5 mg PO DAILY Spironolactone 50 mg PO DAILY Potassium Chloride [Klor-Con 20] 20 meq PO BID Aspirin EC [Ecotrin] 325 mg PO DAILY Losartan Potassium 100 mg PO DAILY Ergocalciferol (Vitamin D2) [Vitamin D2] 50,000 unit PO MO Doxazosin Mesylate 2 mg PO HS cloNIDine 0.3 MG/24HR PATCH [Catapres-TTS] 1 patch TRANSDERM MO amLODIPine [Norvasc] 5 mg PO DAILY Metoprolol Succinate [Toprol XL] 50 mg PO BID Testosterone Cypionate [Depo-Testosterone] 100 mg IM Q14D Anastrozole [Arimidex] 0.5 mg PO Q72H Discharge Medication List Anastrozole [Arimidex] 0.5 mg PO Q72H 08/07/16 [History] Aspirin EC [Ecotrin] 325 mg PO DAILY 08/07/16 [History] Doxazosin Mesylate 2 mg PO HS 08/07/16 [History] Ergocalciferol (Vitamin D2) [Vitamin D2] 50,000 unit PO MO 08/07/16 [History] Indapamide [Lozol] 2.5 mg PO DAILY 08/07/16 [History] Losartan Potassium 100 mg PO DAILY 08/07/16 [History] Metoprolol Succinate [Toprol XL] 50 mg PO BID 08/07/16 [History] Potassium Chloride [Klor-Con 20] 20 meq PO BID 08/07/16 [History] Spironolactone 50 mg PO DAILY 08/07/16 [History] Testosterone Cypionate [Depo-Testosterone] 100 mg IM Q14D 08/07/16 [History] amLODIPine [Norvasc] 5 mg PO DAILY 08/07/16 [History] cloNIDine 0.3 MG/24HR PATCH [Catapres-TTS] 1 patch TRANSDERM MO 08/07/16 [ History] Cefuroxime Axetil [Ceftin] 500 mg PO BID #10 tab 08/08/16 [Rx] Nitroglycerin Sl Tabs [Nitrostat] 0.4 mg SUBLINGUAL Q5M PRN #20 tab 08/08/16 [Rx ] Follow up Appointment(s)/Referral(s): Gay Ndiaye MD [STAFF PHYSICIAN] - 4 Weeks Bryce Astudillo MD [Primary Care Provider] - 1-2 days Discharge Disposition: HOME SELF-CARE
--- NOTE | 2016-08-09 21:01 | DS ---
DATE OF ADMISSION: 08/07/2016 DATE OF DISCHARGE: 08/08/2016 ATTENDING NOTE: This patient was seen and examined by me today. Reviewed the discharge summary of my nurse practitioner Ms. Elias. Discussed additional findings below. The patient doing well. No further fever. Empirically put on antibiotics per Dr. Hassan. On exam, lungs are clear. CARDIOVASCULAR: First and second sounds normal. FINAL DIAGNOSES: Probably acute viral syndrome. Just to be on the safe side, patient put on antibiotics. On exam, lungs are clear. CARDIOVASCULAR: First and second sounds normal. A 2-D echocardiogram unremarkable. Patient is to be discharged on Ceftin. For more notes, please refer to my nurse practitioner's, discharge summary.
[2016-08-12] MEDS ORDERED: ERGOCALCIFEROL 50,000 UNIT CAP PO SCH (12:00)
[2016-08-12] MEDS ORDERED: cloNIDine 0.3 MG/24HR PATCH 1 PATCH PATCH TRANSDERM SCH (12:00)
== END 2016-08-08 18:37 | disposition home or self-care (01) ==
LOC: EC 06:25 → 3OBS 09:08
PROVIDERS: ADMIT Hospitalist; ATTEND Hospitalist
DX: R07.89 Other chest pain (principal); R50.9 Fever, unspecified; I25.110 Atherosclerotic heart disease of native coronary artery with unstable angina pectoris; I10 Essential (primary) hypertension; M17.0 Bilateral primary osteoarthritis of knee; I73.9 Peripheral vascular disease, unspecified; E66.01 Morbid (severe) obesity due to excess calories; I25.2 Old myocardial infarction; C44.91 Basal cell carcinoma of skin, unspecified; E78.5 Hyperlipidemia, unspecified; Z87.891 Personal history of nicotine dependence; Z95.5 Presence of coronary angioplasty implant and graft; Z68.41 Body mass index [BMI] 40.0-44.9, adult; Z79.82 Long term (current) use of aspirin; Z79.899 Other long term (current) drug therapy; Z88.0 Allergy status to penicillin; Z88.8 Allergy status to other drugs, medicaments and biological substances
CPT/HCPCS: 96366 ×2; 96368; 96372; 96375; 96376 ×2; 96361; 96365; 99285; 36415; 93005; 93306; 80061; 80053; 80048; 82550; 82553; 83605; 84484; 85025 ×2; 85610; 85730; 86140; 81001; 87040; 87086; 87502; 71020 ×2; G0378 ×2; J1644 ×3; J2405; J0696; S0170; Q9957

== ENCOUNTER 2017-03-14 18:31 | Inpatient (IN) | payer OTHER ==
--- NOTE | 2017-03-14 19:17 | ED ---
General Adult HPI - General Chief complaint: Chest Pain Stated complaint: Abnormal EKG Time Seen by Provider: 03/14/17 18:43 Source: patient, RN notes reviewed, old records reviewed Mode of arrival: ambulatory Limitations: no limitations - History of Present Illness Initial comments: This is a 61-year-old male to the ER for evaluation. This patient is presenting for evaluation in regards to chest pain. Patient has history of heart disease with history of heart attack and stent. Patient is coming in today with intermittent chest pain for a week, taking nitro excessively and much more than normal. Patient is having shortness of breath with exertion. And then chest pain at the anterior chest heaviness that comes and goes. Patient states he has not been short of breath does not get diaphoretic or sweaty, those are all symptoms with his first heart attack. There is no radiation. No nausea vomiting. Patient denies any other recent medication changes. - Related Data Home Medications Medication Instructions Recorded Confirmed Aspirin EC [Ecotrin] 325 mg PO DAILY 08/07/16 03/14/17 Doxazosin Mesylate 3 mg PO HS 08/07/16 03/14/17 Indapamide [Lozol] 2.5 mg PO [id number] 08/07/16 03/14/17 Losartan Potassium 100 mg PO DAILY 08/07/16 03/14/17 Metoprolol Succinate [Toprol XL] 50 mg PO BID 08/07/16 03/14/17 Potassium Chloride [Klor-Con 20] 40 meq PO DAILY 08/07/16 03/14/17 amLODIPine [Norvasc] 5 mg PO DAILY 08/07/16 03/14/17 cloNIDine 0.3 MG/24HR PATCH 1 patch TRANSDERM MO 08/07/16 03/14/17 [Catapres-TTS] Furosemide [Lasix] 20 mg PO DAILY 03/14/17 03/14/17 Indapamide [Lozol] 5 mg PO SUTH 03/14/17 03/14/17 Potassium Chloride [Klor-Con 20] 20 meq PO HS 03/14/17 03/14/17 Rosuvastatin Calcium [Crestor] 5 mg PO HS 03/14/17 03/14/17 Tamsulosin HCl [Flomax] 0.4 mg PO HS 03/14/17 03/14/17 Terbinafine HCl [LamISIL] 250 mg PO DAILY 03/14/17 03/14/17 Previous Rx's Medication Instructions Recorded Nitroglycerin Sl Tabs [Nitrostat] 0.4 mg SUBLINGUAL Q5M PRN #20 tab 08/08/16 Allergies Allergy/AdvReac Type Severity Reaction Status Date / Time Penicillins Allergy Unknown Verified 03/14/17 19:37 Childhood amlodipine [From Lotrel] AdvReac ITCHING/SWE Verified 03/14/17 19:37 LLING benazepril [From Lotrel] AdvReac ITCHING/SWE Verified 03/14/17 19:37 LLING Review of Systems ROS Statement: Those systems with pertinent positive or pertinent negative responses have been documented in the HPI. ROS Other: All systems not noted in ROS Statement are negative. Past Medical History Past Medical History: Coronary Artery Disease (CAD), Cancer, GI Bleed, Hypertension, Myocardial Infarction (VT), Osteoarthritis (OA), Vascular Disorder Additional Past Medical History / Comment(s): CURRENT BASAL CELL SKIN CANCER R EAR-SOON TO BE REMOVED, PVD, 2010 SOME BLOOD IN STOOL, ARTHRITIS IN KNEES. Last Myocardial Infarction Date:: 2007 History of Any Multi-Drug Resistant Organisms: None Reported Past Surgical History: Heart Catheterization With Stent, Joint Replacement, Orthopedic Surgery Additional Past Surgical History / Comment(s): PCI WITH STENT RCA IN 2008Bilateral Elbow Surgery; Left knee Replacement; Right knee arthroscopy Past Anesthesia/Blood Transfusion Reactions: No Reported Reaction Date of Last Stent Placement:: 2007 Past Psychological History: No Psychological Hx Reported Smoking Status: Former smoker Past Alcohol Use History: Occasional Past Drug Use History: None Reported - Past Family History Father Family Medical History: Dementia Additional Family Medical History / Comment(s): FATHER IS 84 YRS OLD. Mother Family Medical History: Cancer Additional Family Medical History / Comment(s): MOTHER OF CANCER-FOUND IN LIVER-PRIMARY NEVER KNOWN. General Exam Limitations: no limitations General appearance: alert, in no apparent distress Head exam: Present: atraumatic, normocephalic, normal inspection Eye exam: Present: normal appearance, PERRL, EOMI. Absent: scleral icterus, conjunctival injection, periorbital swelling ENT exam: Present: normal exam, mucous membranes moist Neck exam: Present: normal inspection. Absent: tenderness, meningismus, lymphadenopathy Respiratory exam: Present: normal lung sounds bilaterally. Absent: respiratory distress, wheezes, rales, rhonchi, stridor Cardiovascular Exam: Present: regular rate, normal rhythm, normal heart sounds. Absent: systolic murmur, diastolic murmur, rubs, gallop, clicks GI/Abdominal exam: Present: soft, normal bowel sounds. Absent: distended, tenderness, guarding, rebound, rigid Extremities exam: Present: normal inspection, full ROM, normal capillary refill. Absent: tenderness, pedal edema, joint swelling, calf tenderness Back exam: Present: normal inspection Neurological exam: Present: alert, oriented X3, CN II-XII intact Psychiatric exam: Present: normal affect, normal mood Skin exam: Present: warm, dry, intact, normal color. Absent: rash Course Vital Signs 03/14/17 19:09 Temperature 97.6 F Pulse Rate 63 Respiratory 18 Rate Blood Pressure 172/87 O2 Sat by Pulse 97 Oximetry - Reevaluation(s) Reevaluation #1: 03/14/17 19:55 Medical record is reviewed Reevaluation #2: 03/14/17 20:27 Patient remains a chest pain EKG Findings - EKG Comments: EKG Findings:: EKG shows normal sinus rhythm at 63, FL 182, QRS 112, QTC 450 Medical Decision Making - Medical Decision Making 60 male to the ER with chest pain. Patient mildly elevated troponin will be admitted for cardiac observation anticoagulation - Lab Data Result diagrams: 03/14/17 19:48 03/14/17 19:48 Lab Results 03/14/17 03/14/17 03/14/17 Range/Units 19:48 19:48 19:48 WBC 10.1 (3.8-10.6) k/uL RBC 5.34 (4.30-5.90) m/uL Hgb 15.7 (13.0-17.5) gm/dL Hct 46.9 (39.0-53.0) % MCV 87.8 (80.0-100.0) fL MCH 29.4 (25.0-35.0) pg MCHC 33.5 (31.0-37.0) g/dL RDW 13.8 (11.5-15.5) % Plt Count 287 (150-450) k/uL Neutrophils % 63 % Lymphocytes % 27 % Monocytes % 5 % Eosinophils % 4 % Basophils % 1 % Neutrophils # 6.3 (1.3-7.7) k/uL Lymphocytes # 2.7 (1.0-4.8) k/uL Monocytes # 0.5 (0-1.0) k/uL Eosinophils # 0.4 (0-0.7) k/uL Basophils # 0.1 (0-0.2) k/uL PT (9.0-12.0) sec INR (<1.2) APTT (22.0-30.0) sec Sodium 141 (137-145) mmol/L Potassium 3.1 L (3.5-5.1) mmol/L Chloride 101 (98-107) mmol/L Carbon Dioxide 28 (22-30) mmol/L Anion Gap 12 mmol/L BUN 17 (9-20) mg/dL Creatinine 0.96 (0.66-1.25) mg/dL Est GFR (MDRD) Af Amer >60 (>60 ml/min/1.73 sqM) Est GFR (MDRD) Non-Af >60 (>60 ml/min/1.73 sqM) Glucose 104 H (74-99) mg/dL Calcium 9.7 (8.4-10.2) mg/dL Magnesium 1.8 (1.6-2.3) mg/dL Total Bilirubin 0.7 (0.2-1.3) mg/dL AST 31 (17-59) U/L ALT 54 (21-72) U/L Alkaline Phosphatase 82 (38-126) U/L Total Creatine Kinase 87 (55-170) U/L CK-MB (CK-2) 1.1 (0.0-2.4) ng/mL CK-MB (CK-2) Rel Index 1.3 Troponin I 0.034 (0.000-0.034) ng/mL Total Protein 6.8 (6.3-8.2) g/dL Albumin 4.0 (3.5-5.0) g/dL Lipase 66 (23-300) U/L 03/14/17 Range/Units 19:48 WBC (3.8-10.6) k/uL RBC (4.30-5.90) m/uL Hgb (13.0-17.5) gm/dL Hct (39.0-53.0) % MCV (80.0-100.0) fL MCH (25.0-35.0) pg MCHC (31.0-37.0) g/dL RDW (11.5-15.5) % Plt Count (150-450) k/uL Neutrophils % % Lymphocytes % % Monocytes % % Eosinophils % % Basophils % % Neutrophils # (1.3-7.7) k/uL Lymphocytes # (1.0-4.8) k/uL Monocytes # (0-1.0) k/uL Eosinophils # (0-0.7) k/uL Basophils # (0-0.2) k/uL PT 10.1 (9.0-12.0) sec INR 1.0 (<1.2) APTT 22.5 (22.0-30.0) sec Sodium (137-145) mmol/L Potassium (3.5-5.1) mmol/L Chloride (98-107) mmol/L Carbon Dioxide (22-30) mmol/L Anion Gap mmol/L BUN (9-20) mg/dL Creatinine (0.66-1.25) mg/dL Est GFR (MDRD) Af Amer (>60 ml/min/1.73 sqM) Est GFR (MDRD) Non-Af (>60 ml/min/1.73 sqM) Glucose (74-99) mg/dL Calcium (8.4-10.2) mg/dL Magnesium (1.6-2.3) mg/dL Total Bilirubin (0.2-1.3) mg/dL AST (17-59) U/L ALT (21-72) U/L Alkaline Phosphatase (38-126) U/L Total Creatine Kinase (55-170) U/L CK-MB (CK-2) (0.0-2.4) ng/mL CK-MB (CK-2) Rel Index Troponin I (0.000-0.034) ng/mL Total Protein (6.3-8.2) g/dL Albumin (3.5-5.0) g/dL Lipase (23-300) U/L - Radiology Data Radiology results: report reviewed (Chest x-ray is negative for acute disease), image reviewed Critical Care Time Critical Care Time: Yes Total Critical Care Time: 31 Disposition Clinical Impression: Chest pain Disposition: ADMITTED IP TO THIS [facility] Condition: Undetermined
[2017-03-14] MEDS ORDERED: ASPIRIN 81 MG PO STA (19:53)
[2017-03-14] MEDS ORDERED: HEPARIN SODIUM,PORCINE 5,000 UNIT/ML 1 ML VIAL IV ONE (19:53)
[2017-03-14] MEDS ORDERED: MORPHINE SULFATE 2 MG/ML SYRINGE IV PRN (19:53)
[2017-03-14] MEDS ORDERED: HEPARIN SODIUM,PORCINE 5,000 UNIT/ML 1 ML VIAL IV PRN (19:53)
[2017-03-14] MEDS ORDERED: NITROGLYCERIN SL TABS 0.4 MG TAB SUBLINGUAL PRN ×2 (19:53→22:32)
[2017-03-14 19:56] LABS: Basophils # (A) 0.1 k/uL (0-0.2); Basophils % (A) 1 %; Eosinophils # (A) 0.4 k/uL (0-0.7); Eosinophils % (A) 4 %; HCT 46.9 % (39.0-53.0); HGB 15.7 gm/dL (13.0-17.5); Lymphocytes # (A) 2.7 k/uL (1.0-4.8); Lymphocytes % (A) 27 %; MCH 29.4 pg (25.0-35.0); MCHC 33.5 g/dL (31.0-37.0); MCV 87.8 fL (80.0-100.0); Mean Platelet Volume 6.9; Monocytes # (A) 0.5 k/uL (0-1.0); Monocytes % (A) 5 %; Neutrophils # (A) 6.3 k/uL (1.3-7.7); Neutrophils % (A) 63 %; Platelet Count 287 k/uL (150-450); RBC 5.34 m/uL (4.30-5.90); RDW 13.8 % (11.5-15.5); WBC 10.1 k/uL (3.8-10.6)
[2017-03-14] MEDS ORDERED: HEPARIN SOD,PORK IN 0.45% NACL 25,000 UNIT in 0.45% NACL 1 500ML.BAG IV SCH (20:00)
[2017-03-14 20:04] LABS: Partial Thromboplastin Time 22.5 sec (22.0-30.0); Prothrombin Time 10.1 sec (9.0-12.0)
[2017-03-14 20:05] LABS: ALT 54 U/L (21-72); AST 31 U/L (17-59); Alkaline Phosphatase 82 U/L (38-126); Anion Gap 12 mmol/L; Blood Urea Nitrogen 17 mg/dL (9-20); Calcium 9.7 mg/dL (8.4-10.2); Carbon Dioxide 28 mmol/L (22-30); Chloride 101 mmol/L (98-107); Glucose 104 mg/dL (74-99); Lipase 66 U/L (23-300); Magnesium 1.8 mg/dL (1.6-2.3); Potassium 3.1 mmol/L (3.5-5.1); Sodium 141 mmol/L (137-145); Total Bilirubin 0.7 mg/dL (0.2-1.3); Total Protein 6.8 g/dL (6.3-8.2)
[2017-03-14 20:21] LABS: Creatine Kinase MB 1.1 ng/mL (0.0-2.4); Troponin I 0.034 ng/mL (0.000-0.034)
--- NOTE | 2017-03-14 20:43 | XR ---
EXAMINATION TYPE: XR chest 2V DATE OF EXAM: 03/14/2017 COMPARISON: Prior chest x-ray 08/08/2016 HISTORY: Chest pain and shortness of breath TECHNIQUE: Frontal and lateral views of the chest are obtained. FINDINGS: There is no focal air space opacity, pleural effusion, or pneumothorax seen. The cardiac silhouette size is stable. There are overlying cardiac leads. The osseous structures are intact. IMPRESSION: No acute cardiopulmonary process.
[2017-03-14] MEDS ORDERED: ATORVASTATIN 10 MG TAB PO SCH (22:45)
[2017-03-14] MEDS: METOPROLOL TARTRATE 25 MG TAB PO SCH (23:04)
[2017-03-14] MEDS: TAMSULOSIN 0.4 MG CAP.ER.24H PO SCH (23:05)
[2017-03-14] MEDS: POTASSIUM CHLORIDE ER 20 MEQ TAB.ER PO SCH (23:05)
[2017-03-14] MEDS: DOXAZOSIN 1 MG TAB PO SCH (23:05)
[2017-03-15] MEDS ORDERED: HEPARIN SODIUM,PORCINE 5,000 UNIT/ML 1 ML VIAL IV PRN (02:51)
[2017-03-15 03:05] LABS: Mean Platelet Volume 7.1; Platelet Count 267 k/uL (150-450)
[2017-03-15 03:35] LABS: Cholesterol 190 mg/dL (<200); HDL Cholesterol 38 mg/dL (40-60); LDL Cholesterol,Calculated 105 mg/dL (0-99); Triglycerides 237 mg/dL (<150)
[2017-03-15 03:53] LABS: Creatine Kinase MB 1.2 ng/mL (0.0-2.4); Troponin I 0.034 ng/mL (0.000-0.034)
[2017-03-15 07:53] LABS: Creatine Kinase MB 1.1 ng/mL (0.0-2.4)
[2017-03-15 08:02] LABS: Troponin I 0.039 ng/mL (0.000-0.034)
[2017-03-15] MEDS ORDERED: ALPRAZolam 0.5 MG TAB PO PRN (08:56)
[2017-03-15] MEDS ORDERED: SODIUM CHLORIDE 0.9% 1,000 ML in EMPTY BAG 1 BAG IV ONE (08:56)
[2017-03-15] MEDS ORDERED: NITROGLYCERIN SL TABS 0.4 MG TAB SUBLINGUAL PRN ×2 (08:56→14:22)
[2017-03-15] MEDS ORDERED: ALPRAZolam 0.25 MG TAB PO PRN (08:56)
[2017-03-15] MEDS ORDERED: ASPIRIN 325 MG TAB PO STA (08:59)
[2017-03-15] MEDS ORDERED: ATORVASTATIN 80 MG TAB PO STA (09:00)
[2017-03-15] MEDS ORDERED: ASPIRIN 81 MG PO SCH (09:00)
[2017-03-15] MEDS ORDERED: ASPIRIN 325 MG TAB PO SCH (09:00)
[2017-03-15] MEDS ORDERED: POTASSIUM CHLORIDE ER 20 MEQ TAB.ER PO STA (09:04)
[2017-03-15] MEDS: LOSARTAN 50 MG TAB PO SCH (09:49)
[2017-03-15] MEDS: TERBINAFINE 250 MG TAB PO SCH (09:49)
[2017-03-15] MEDS: amLODIPine 5 MG TAB PO SCH (09:49)
[2017-03-15] MEDS: INDAPAMIDE 2.5 MG TAB PO SCH (09:50)
[2017-03-15] MEDS: POTASSIUM CHLORIDE ER 20 MEQ TAB.ER PO SCH ×2 (09:51→20:36)
--- NOTE | 2017-03-15 10:03 | CONS ---
CONSULTATION Mr. Chauhan is a 61-year-old male status post myocardial infarction and stenting performed in 2007, history of hypertension, hyperlipidemia, who presented to the hospital with symptoms of chest discomfort. He has been having discomfort on and off for the last 2 weeks. The discomfort is worse with physical activity and the cold weather and improves with nitroglycerin sublingually. He has mild associated dyspnea. He denies any dizziness or palpitation. He has some chronic edema. No PND nor orthopnea. His coronary risk factors are remarkable for hypertension, hyperlipidemia. He is nondiabetic. He stopped smoking over 10 years ago. His medications at home include clonidine patch #3 once a week, potassium, Lozol, doxazosin, 3 mg daily, rosuvastatin 5 mg daily, Lasix 20 mg daily, Lamisil, Flomax, potassium, amlodipine 5 mg daily, metoprolol succinate 100 mg daily, losartan 100 mg daily, and aspirin once a day. REVIEW OF SYSTEMS: RESPIRATORY SYSTEM: He has recent upper respiratory infection, but no history of chronic wheezing. GI SYSTEM: No recent GI bleed. No peptic ulcer disease. SYSTEM: No dysuria or hematuria. NERVOUS SYSTEM: No history of stroke or seizure. PHYSICAL EXAMINATION: He is a 61-year-old male, alert, oriented, in no apparent distress. Blood pressure 154/90 with the heart rate in the 50s. HEAD: Normocephalic. EYES: Sclerae anicteric. NECK: Good carotid upstroke. No bruit. No jugular venous distention. LUNGS: Clear to auscultation. HEART: Regular rate and rhythm. S1, S2. No S3. No rub. ABDOMEN: Soft, obese, nontender. EXTREMITIES: +1 edema. Intact distal pulses. LAB DATA: Lab data revealed a troponin 0.034, 0.034 and 0.039. Cholesterol 190, LDL of 105. Hemoglobin of 15.7, BUN and creatinine 17 and 0.96. Potassium 3.1. EKG revealed a sinus mechanism, normal axis, intervals with nonspecific T-wave changes laterally that could represent ischemia, although no significant evolution compared with a prior EKG. Chest x-ray revealed no acute infiltrate. IMPRESSION: 1. Symptoms of unstable angina with minimal elevation of troponin that could represent non ST-segment elevation myocardial infarction. 2. History of coronary artery disease, status post percutaneous revascularization in 2007. The patient thinks it was in the right coronary artery territory. 3. History of hypertension. 4. Hyperlipidemia. RECOMMENDATION: I have recommended to proceed with coronary angiography to assess his status and guide his treatment. The rationale behind the procedure as well as risks and complications were discussed with the patient who is in full understanding and agreement. Thank you for this consult. We will follow with you. PENELOPE / RADHA: [id number] /
[2017-03-15] MEDS: METOPROLOL TARTRATE 25 MG TAB PO SCH (10:44)
[2017-03-15] MEDS: METOPROLOL SUCCINATE (ER) 50 MG TAB.ER.24H PO SCH ×2 (11:16→20:36)
[2017-03-15] MEDS ORDERED: IV FLUID CONTINUATION 650 ML IV ONE (12:19)
[2017-03-15] MEDS ORDERED: VERAPAMIL 2.5 MG/ML 2 ML AMP ONE (12:24)
[2017-03-15] MEDS ORDERED: fentaNYL (PF) 50 MCG/ML 2 ML AMP ONE (12:24)
[2017-03-15] MEDS ORDERED: LIDOCAINE 2% INJ 20 MG/ML (20 ML MDV) ONE (12:24)
[2017-03-15] MEDS ORDERED: fentaNYL (PF) 50 MCG/ML 2 ML AMP IV ONE (12:40)
[2017-03-15] MEDS ORDERED: LIDOCAINE 2% INJ 20 MG/ML SQ ONE (12:43)
[2017-03-15] MEDS ORDERED: VERAPAMIL SYRINGE (5 MG/10 ML) INTRAARTER ONE (12:46)
[2017-03-15] MEDS ORDERED: HEPARIN SODIUM 1,000 UN/ML (10ML VL) ONE (13:07)
[2017-03-15] MEDS ORDERED: HEPARIN SODIUM 1,000 UN/ML (10ML VL) IV ONE (13:08)
[2017-03-15] MEDS ORDERED: BIVALIRUDIN BOLUS 250 MG/50 ML IV ONE (13:15)
[2017-03-15] MEDS ORDERED: CLOPIDOGREL 75 MG TAB ONE (13:16)
[2017-03-15] MEDS ORDERED: BIVALIRUDIN 250 MG in SODIUM CHLORIDE 0.9% 50 ML IV ONE ×2 (13:16→13:44)
[2017-03-15] MEDS ORDERED: CLOPIDOGREL 75 MG TAB PO ONE (13:20)
[2017-03-15] MEDS ORDERED: IOHEXOL 350 MG/ML 125ML BOTTLE INJ ONE (14:12)
[2017-03-15] MEDS ORDERED: ZOLPIDEM 5 MG TAB PO PRN (14:22)
[2017-03-15] MEDS ORDERED: RX INFO: IV CONTRAST WAS GIVEN 1 EACH MISC MISCELLANE PRN (14:22)
[2017-03-15] MEDS ORDERED: ATROPINE SULFATE 0.1 MG/ML 10ML SYRINGE IV PRN (14:22)
[2017-03-15] MEDS ORDERED: MAG HYDROX/AL HYDROX/SIMETH 30 ML CUP PO PRN (14:22)
[2017-03-15] MEDS ORDERED: SODIUM CHLORIDE 0.9% 1,000 ML IV SCH (14:30)
--- NOTE | 2017-03-15 14:48 | CC ---
CARDIAC CATHETERIZATION REPORT Mr. Chauhan is a 61-year-old male with known history of hypertension, hyperlipidemia, history of coronary artery disease, status post percutaneous revascularization om 2007, who presented with symptoms of unstable angina and minimal elevation of troponin. In view of that, recommendation was made regarding cardiac catheterization. The procedure as well as risks and complication were discussed with the patient who is in full understanding and agreement. PROCEDURE: Patient was brought to dairy and food laboratory assistant in a fasting semi-sedated state after receiving fentanyl Benadryl and achieving moderate conscious sedated state. Using Xylocaine anesthesia in the Seldinger technique, a 6-English sheath was introduced in the right radial artery. Selective right and left angiography were performed using 5-English, 4 bend right and left Trip catheter. Multiple views of the coronary artery including hemiaxial views obtained. Following that, the aortic valve was crossed using the 6- English FL4 guiding catheter and pressures were calculated. Following that, catheter was removed. Images were reviewed. FINDINGS: LEFT MAIN: This is almost nonexistent vessel bifurcating immediately to LAD and left circumflex. LEFT ANTERIOR DESCENDING ARTERY: This is a large-sized vessel reaching toward the apex with a wraparound apex segment. The LAD proximal has an eccentric 20% plaque. In the mid segment, it has a longer tubular lesion with area of stenosis up to 99%. It gives rise to first diagonal branch. The second diagonal branch has a slow flow. The distal vessel has slow flow into the apex. LEFT CIRCUMFLEX: This is a nondominant vessel, large in caliber, giving rise to 2 obtuse marginal branches. The first obtuse marginal branch is very proximal and small in caliber. After the takeoff of the first obtuse marginal branch, there is tubular area of stenosis of about 70% to 80% long. The rest of the vessel has no high-grade stenosis. RIGHT CORONARY ARTERY: This is a dominant vessel, large in caliber, bifurcating distally PDA posterolateral segment and branches. The proximal stented segment of the right coronary artery is patent with no evidence significant restenosis. The mid right coronary artery has an area of stenosis up to 40% to 50% without any evidence of high- grade stenosis. LEFT VENTRICULOGRAM: Left ventriculogram is not performed. COLLATERALS: There is collateral from the right PDA to the distal LAD. HEMODYNAMICS: There was no gradient across the aortic valve. The ventricle end- diastolic pressure was 24 mmHg. CONCLUSION: 1. 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 2. Significant disease in left circumflex. 3. Moderate disease in the right coronary artery. RECOMMENDATION: In view of finding anatomy, I have recommended proceeding with angioplasty and stenting of the LAD. The procedures as well as risks and complications were discussed with the patient who is in full understanding and agreement. MMCHUNL / VICTORIANON: [id number] /
--- NOTE | 2017-03-15 15:00 | PTCA ---
PERCUTANEOUSTRANS CORORONARY ANGIOGRAPHY Mr. Chauhan is a 61-year-old male with history of coronary artery disease who presented with non ST-segment elevation myocardial infarction, underwent cardiac catheterization, was found to have critical stenosis involving a long segment of the LAD. The findings were discussed with the patient and recommendation was made regarding angioplasty and stenting. The procedure as well as risks and complications were discussed with the patient who is in full understanding and agreement. PROCEDURE: Using a 6-Slovenian FR4 guiding catheter and after cannulating the left main, a 0.014 balanced medium weight J-wire was advanced across the lesion and positioned distally. Following that, a 2.5 x 12 mm Trek balloon was advanced and multiple inflations in the mid segment were done. Following that, the balloon was removed and a 2.75 x 33 mm Xience Alpine stent was deployed postdilated at 14 atmospheres. Following that, the balloon was removed and attempt to advance a 3.0 x 15 mm Xience Alpine stent proximal to the first stent was unsuccessful. That stent was removed and another 0.014 balanced medium weight J-wire was advanced next to the first one in a elda fashion and subsequently the stent was advanced, deployed and postdilated at 16 atmospheres. Following that, the 2.75 x 12 mm NC Trek balloon was advanced and one inflation overlap segment was done at 12 atmospheres. Following that, the balloon was removed and a 3.0 x 8 mm Xience Alpine stent was deployed in the overlap segment and postdilated to16 atmospheres. After the last inflation, after appropriate wait, the balloon and the guidewire were withdrawn back in the guiding catheter. Images were obtained, repeated. Those images reveal stable successful stenting. At that point, the guiding catheter, the balloon and the guide wire were removed. The sheath was removed. Hemostasis was obtained with deployment of TR band. There was no immediate complication. Patient was returned to his room in stable condition. Of note, the patient received Angiomax per protocol as well as oral loading dose of clopidogrel. Prior start of the cardiac catheterization, received 5000 units of intravenous heparin as well as intra-arterial verapamil. He had no significant chest discomfort or EKG changes with the inflation. RESULTS: Successful stenting of a long segment of the mid left anterior descending artery with reduction in stenosis from 99% to 0%. RECOMMENDATION: The patient will be continued on aspirin, Plavix, beta rebekah, NALINI inhibitors, statin. The importance of dual antiplatelet treatment was discussed with the patient and his family and are in full understanding and agreement. The patient will be further evaluated down the road to see if revascularization of the left circumflex is needed. Duration procedure is 85 minutes. PENELOPE / RADHA: [id number] /
[2017-03-15 15:25] VITALS: BMI 39.7
[2017-03-15] MEDS: FUROSEMIDE 20 MG TAB PO SCH (16:25)
[2017-03-15 18:01] LABS: Glucose,Whole Blood 128 mg/dL (75-99)
--- NOTE | 2017-03-15 18:09 | HP ---
HISTORY AND PHYSICAL DATE OF ADMISSION: 03/14/2017 PRESENTING COMPLAINT: Chest pain. HISTORY OF PRESENTING COMPLAINT: A very pleasant 61-year-old patient of Dr. Astudillo. 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 Deysi Ndiaye. Chronic stable medical conditions include hypertension, osteoarthritis, peripheral artery disease, BPH and osteoarthritis. The patient has known coronary artery disease with stent in 2007. The patient went to see his family doctor and had been having for the last few days pressure across the chest, shortness of breath with activity, some relief with nitro appears to be feeling tired and run down, coming on and off. They did an EKG, did not like what they found and patient was sent down to the ER. The patient's EKG shows some ST-segment changes from V2 to V6. Subsequently patient was taken in for cardiac catheterization by Dr. Aguillon. Patient is found to have a subtotal occluded long segment of the LAD and also significant disease with the left circumflex and moderate disease of the right coronary artery. Subsequently patient himself 3 stents in the LAD. Post procedure, lying in bed. The patient's and other family members at the bedside. REVIEW OF SYSTEMS: CONSTITUTIONAL: Tired HEENT: None. RESPIRATORY: As above. CARDIOVASCULAR: As above. GASTROINTESTINAL: None. GENITOURINARY: Some BPH symptoms. DERMATOLOGICAL: None. HEMATOLOGIC: None. . LYMPHATICS: None. PSYCHIATRY: None. NEUROLOGICAL: None. Patient does though get some charley horses, cramps lower extremity. PAST MEDICAL HISTORY: Coronary artery disease with stent, hypertension, osteoarthritis, peripheral arterial disease, BPH. PAST SURGICAL HISTORY: Cardiac cath with stent in 2007 and today, joint replacement, bilateral elbow surgery, left knee replacement, right knee arthroscopy, basal cell cancer right ear removed and reconstructive surgery. 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 Now works for [employer]. Patient smoked for close to 20 years, stopped in 2005. . FAMILY HISTORY: Family history of dementia. HOME MEDICATIONS: 1. Catapres 0.3 mg patch every Friday. 2. Klor-Con 20 mEq p.o. q.h.s. 3. Lozol 5 mg on Sundays and . 4. Doxazosin 3 mg q.h.s. 5. Crestor 5 mg p.o. q.h.s. 6. Lasix 20 mg p.o. daily. 7. Lamisil 250 mg p.o. daily. 8. Flomax 0.4 mg p.o. q.h.s. 9. Potassium 40 mEq p.o. daily. 10.Lozol 2.5 mg Friday, Friday, Friday, Friday and Friday. 11.Norvasc 5 mg a day. 12.Nitrostat 0.4 sublingual q.5 p.r.n. 13.Toprol XL 50 mg p.o. b.i.d. 14.Losartan 100 mg p.o. daily. 15.Aspirin 325 p.o. daily. ALLERGIES: Allergies to PENICILLIN and LOTREL. PHYSICAL EXAMINATION: On examination, temperature 97.8, pulse 55, respirations 18, blood pressure 152/86, pulse ox 93% on room. GENERAL APPEARANCE: Well built, BMI 39.7, lying in bed, tired appearing. EYES: Pupils equal. Conjunctivae normal. HENT: Oral cavity normal. Neck: JVD not raised. Mass not palpable. RESPIRATORY: Effort normal. LUNGS: Fair entry. CARDIOVASCULAR: First and second sounds normal. No edema. ABDOMEN: Soft, nontender. Liver and spleen not palpable. LYMPHATIC: No lymph node palpable in the neck and axillae. PSYCHIATRY: Alert and oriented x3. Mood and affect normal. NEUROLOGICAL: Pupils equal. Cranial nerves grossly intact. Power and sensation grossly intact. EXTREMITIES: Pressure dressing over the right wrist where was done. INVESTIGATIONS: White count 10.1, hemoglobin 13.7. Potassium 3.1. Troponin 0.034, 0.034, 0.039. EKG as above. LDL 105. ASSESSMENT: 1. Unstable angina in a patient with known coronary artery disease, status post cardiac catheterization showing significant disease now patient has 3 stents to the left anterior descending artery. 2. Coronary artery disease established with known stent previously. 3. Essential hypertension, uncontrolled. 4. Primary osteoarthritis in multiple joints. 5. Peripheral arterial disease. 6. Benign prostatic hypertrophy. 7. Obesity; body mass index 39.7. PLAN: The patient is currently on Norvasc, aspirin, Lipitor, Catapres patch, Plavix, Cozaar, Toprol XL. Care was discussed with the patient and at the bedside. He is should see a dietitian for weight loss measures. The patient was seen by Dr. Aguillon from cardiology. PENELOPE / RADHA: [id number] /
[2017-03-15] MEDS: TAMSULOSIN 0.4 MG CAP.ER.24H PO SCH (20:36)
[2017-03-15] MEDS: DOXAZOSIN 1 MG TAB PO SCH (20:36)
[2017-03-16 06:16] LABS: Mean Platelet Volume 7.4; Platelet Count 279 k/uL (150-450)
[2017-03-16 06:33] LABS: Anion Gap 9 mmol/L; Blood Urea Nitrogen 11 mg/dL (9-20); Calcium 9.4 mg/dL (8.4-10.2); Carbon Dioxide 29 mmol/L (22-30); Chloride 102 mmol/L (98-107); Glucose 97 mg/dL (74-99); Potassium 3.3 mmol/L (3.5-5.1); Sodium 140 mmol/L (137-145)
[2017-03-16] MEDS: ASPIRIN 81 MG PO SCH (08:12)
[2017-03-16] MEDS: amLODIPine 5 MG TAB PO SCH (08:12)
[2017-03-16] MEDS: FUROSEMIDE 20 MG TAB PO SCH (08:12)
[2017-03-16] MEDS: LOSARTAN 50 MG TAB PO SCH (08:14)
[2017-03-16] MEDS: METOPROLOL SUCCINATE (ER) 50 MG TAB.ER.24H PO SCH ×2 (08:14→21:04)
[2017-03-16] MEDS: POTASSIUM CHLORIDE ER 20 MEQ TAB.ER PO SCH ×2 (08:15→21:04)
[2017-03-16] MEDS: TERBINAFINE 250 MG TAB PO SCH (08:16)
[2017-03-16] MEDS ORDERED: INDAPAMIDE 2.5 MG TAB PO SCH (09:00)
[2017-03-16] MEDS ORDERED: ASPIRIN 325 MG TAB PO SCH (09:00)
--- NOTE | 2017-03-16 09:37 | PN ---
PROGRESS NOTE Mr. Chauhan is a 61-year-old male with a known history of coronary artery disease, who presented with non ST-segment elevation myocardial infarction, underwent cardiac catheterization and underwent stenting of his LAD and a long segment. He is doing quite well this morning. His breathing stable. He denies any chest pain. He denies any dizziness or palpitation. He denies any nausea or vomiting. He denies any cough. He continues to be at this time on aspirin once a day, Plavix 75 mg daily, amlodipine 5 mg daily, Lipitor 40 mg daily, clonidine patch 0.3 mg daily, Doxazosin 3 mg daily, Lasix 20 mg daily. Indapamide 2.5 mg 4 times a week and 5 mg 2 other times, losartan 100 mg daily, metoprolol tartrate 50 mg twice a day, potassium supplementation, and Flomax. PHYSICAL EXAMINATION: Blood pressure running in the 140s with a heart rate in the 60s. LUNGS: Clear. Heart regular rate and rhythm S1, S2. No S3, no rub with systolic murmur. ABDOMEN: Soft, obese, nontender. Right radial pulse is intact. LAB DATA: BUN and creatinine 11 and 0.9, potassium 3.3. EKG without any acute changes. IMPRESSION: 1. Status post stenting of the LAD and a long segment with non ST-segment elevation myocardial infarction. 2. Obstructive disease involving the left circumflex. 3. Hypertension. 4. Hyperlipidemia. 5. Obesity. RECOMMENDATION: Patient will increase his level of activity. We will follow his renal function. If he is stable, he will be able to be discharged home tomorrow to be readmitted as an outpatient to undergo a percutaneous revascularization of his left circumflex. MMODL / IJN: [id number] /
[2017-03-16] MEDS: CLOPIDOGREL 75 MG TAB PO SCH (11:34)
--- NOTE | 2017-03-16 18:37 | P.PN ---
Progress Note - Text Progress Note Date: 03/16/17 DATE OF SERVICE: 03/16/2017 PRESENTING COMPLAINT: Chest pain HISTORY OF PRESENT ILLNESS: 61-year-old male with known coronary artery disease and stent placements, went to see his family doctor because he had been having chest pressure shortness of breath with activity and taking more nitro than normal, feeling tired and rundown, EKG did not look good and was sent to the emergency department. EKG in the emergency department revealed some ST segment changes from V2 to V6. As such patient went to the cardiac Coal Handler had a subtotal occluded long segment of the LAD and significant disease of the circumflex and moderate disease in the right coronary artery. Received 3 stents in the LAD. INTERVAL HISTORY: 03/16/2017: Patient lying in bed appears comfortable. Vital signs stable, afebrile, No further episodes of chest pain shortness of breath nausea vomiting. Right radial site clean dry and intact no evidence of hematoma. Ambulatory independently, tolerating his diet eating 75-100% of his meals, last BM 2017. REVIEW OF SYSTEMS: Done for constitutional ,cardiovascular, GI, pulmonary with relevant findings as above. CURRENT MEDICATIONS Maalox, Xanax, Norvasc, aspirin, Lipitor, atropine, Catapres patch, Plavix, Lasix, Lozol, Cozaar, Toprol-XL, potassium chloride, tamsulosin, Lamisil, Ambien. PHYSICAL EXAM VITAL SIGNS: Temperature 97.1, pulse 66, respirations 14, blood pressure 141/93, oxygen saturation 95%. GENERAL APPEARANCE: Lying in bed, not in distress. HEENT: Normocephalic, Pupils equal. Conjunctiva normal. JVD not raised. Mass not palpable.: RESPIRATORY: Respiratory effort increased. Lungs diminished to auscultation. CARDIOVASCULAR: First and second sounds normal. No edema. ABDOMEN: Soft. Liver and spleen not palpable. No tenderness. No mass palpable. PSYCHIATRY: Alert and oriented x3. Mood and affect normal. EXTREMITIES: Right radial catheterization site clean dry and intact no evidence of hematoma or ecchymoses. INVESTIGATIONS: LABS: Potassium 3.3 ASSESSMENT: -Unstable angina in a patient with known coronary artery disease, status post cardiac catheterization showing significant disease now has 3 stents to the left anterior descending artery. -Coronary artery disease established with known stent previously -Essential hypertension, uncontrolled. -Primary osteoporosis arthritis of multiple joints. -Peripheral artery disease. -Benign prostatic hypertrophy. -Obesity body mass index 39.7 PLAN: Continue current medication plan, increase activity monitor renal function. Possible discharge planning for the next 24 hours. We will need to return and undergo percutaneous revascularization of his left circumflex. Plan of care discussed with the patient the bedside he is in agreement. We'll follow closely. HOUSING SPECIALIST statement: Patient was seen and examined by nurse practitioner Hue Elias and all elements of the case discussed with attending Dr. Puga
--- NOTE | 2017-03-16 20:28 | PN ---
PROGRESS NOTE DATE OF SERVICE: 03/16/17 ATTENDING NOTE: Patient seen and examined by me. I discussed with nurse practitioner, Ms. Elias. The patient is out of bed. No chest pain or short of breath, status post cardiac cath with stent. PHYSICAL EXAMINATION: Afebrile. Pulse 66, respiration 14, blood pressure 140/93, pulse ox 95% on room air. Lungs decreased breath sounds. Cardiovascular first and second sounds normal. INVESTIGATIONS: Potassium 3.3, LDL 105. ASSESSMENT: 1. Unstable angina in a patient with known coronary artery disease status post 3 stents to the LAD. 2. Hyperlipidemia with a LDL of 105. PLAN: Care was discussed with the patient. Increase the Lipitor to 80 mg. Encouraged to ambulate. MMODL / IJN: [id number] /
[2017-03-16] MEDS ORDERED: ATORVASTATIN 40 MG TAB PO SCH (21:00)
[2017-03-16] MEDS: DOXAZOSIN 1 MG TAB PO SCH (21:04)
[2017-03-16] MEDS: TAMSULOSIN 0.4 MG CAP.ER.24H PO SCH (21:04)
[2017-03-17 06:37] LABS: Mean Platelet Volume 7.5; Platelet Count 267 k/uL (150-450)
[2017-03-17 06:51] LABS: Anion Gap 9 mmol/L; Blood Urea Nitrogen 15 mg/dL (9-20); Calcium 9.6 mg/dL (8.4-10.2); Carbon Dioxide 30 mmol/L (22-30); Chloride 104 mmol/L (98-107); Glucose 97 mg/dL (74-99); Potassium 3.3 mmol/L (3.5-5.1); Sodium 143 mmol/L (137-145)
[2017-03-17 08:27] VITALS: RESP 16; TEMP 96.7
[2017-03-17] MEDS: FUROSEMIDE 20 MG TAB PO SCH (08:28)
[2017-03-17] MEDS: CLOPIDOGREL 75 MG TAB PO SCH (08:28)
[2017-03-17] MEDS: amLODIPine 5 MG TAB PO SCH (08:28)
[2017-03-17] MEDS: ASPIRIN 81 MG PO SCH (08:28)
[2017-03-17] MEDS: POTASSIUM CHLORIDE ER 20 MEQ TAB.ER PO SCH (08:29)
[2017-03-17] MEDS: LOSARTAN 50 MG TAB PO SCH (08:29)
[2017-03-17] MEDS: INDAPAMIDE 2.5 MG TAB PO SCH (08:29)
[2017-03-17] MEDS: METOPROLOL SUCCINATE (ER) 50 MG TAB.ER.24H PO SCH (08:29)
[2017-03-17] MEDS: TERBINAFINE 250 MG TAB PO SCH (08:30)
--- NOTE | 2017-03-17 08:46 | ECHOF ---
Referral Reason:cad MEASUREMENTS -------- HEIGHT: 190.5 cm WEIGHT: 152.0 kg BP: IVSd: 1.7 cm (0.6 - 1.1) LVIDd: 4.5 cm (3.9 - 5.3) LVPWd: 2.1 cm (0.6 - 1.1) IVSs: 2.6 cm LVIDs: 1.8 cm LVPWs: 2.2 cm Ao Diam: 4.1 cm (2.0 - 3.7) AV Cusp: 2.5 cm (1.5 - 2.6) LA Diam: 3.8 cm (2.7 - 3.8) MV EXCURSION: 13.275 mm (> 18.000) MV EF SLOPE: 58 mm/s (70 - 150) EPSS: 1.7 cm MV E Clark: 0.63 m/s MV DecT: 344 ms MV A Clark: 0.75 m/s MV E/A Ratio: 0.84 RAP: 5.00 mmHg RVSP: 15.95 mmHg FINDINGS -------- Sinus rhythm. This was a technically difficult study with suboptimal views. The left ventricular size is normal. There is severe concentric left ventricular hypertrophy. Ove rall left ventricular systolic function is low-normal with, an EF between 50 - 55 %. The right ventricle is normal in size and function. The left atrium is normal in size. The right atrium is normal in size. 1.5mg of Definity was utilized for enhancement of images There is mild aortic valve sclerosis. The mitral valve leaflets are mildly thickened. There is trace mitral regurgitation. Trace tricuspid regurgitation present. The right ventricular systolic pressure, as measured by Dopp ler, is 15.95mmHg. The pulmonic valve was not well visualized. There is no pulmonic regurgitation present. The aortic root is mildy dilated. There is no pericardial effusion. CONCLUSIONS -------- 1. Sinus rhythm. 2. This was a technically difficult study with suboptimal views. 3. There is severe concentric left ventricular hypertrophy. 4. Overall left ventricular systolic function is low-normal with, an EF between 50 - 55 %. 5. The left atrium is normal in size. 6. 1.5mg of Definity was utilized for enhancement of images 7. There is mild aortic valve sclerosis. 8. The mitral valve leaflets are mildly thickened. 9. There is trace mitral regurgitation. 10. Trace tricuspid regurgitation present. 11. The right ventricular systolic pressure, as measured by Doppler, is 15.95mmHg. 12. There is no pulmonic regurgitation present. 13. The aortic root is mildy dilated. 14. There is no pericardial effusion. LEATHER HEEL BREASTER: Susana Rodriguez RDCS
[2017-03-17] MEDS ORDERED: cloNIDine 0.3 MG/24HR PATCH 1 PATCH PATCH TRANSDERM SCH (09:00)
[2017-03-17] MEDS ORDERED: POTASSIUM CHLORIDE ER 20 MEQ TAB.ER PO STA ×2 (10:21→12:31)
[2017-03-17 12:05] VITALS: BP 137/87; PULSE 60
--- NOTE | 2017-03-17 12:44 | PN ---
PROGRESS NOTE Mr. Chauhan is a 61-year-old male who presented with unstable angina, non ST-segment elevation myocardial infarction, underwent cardiac catheterization and stenting of a long segment of the LAD. He is doing well this morning, ambulating without any difficulty, denying any chest pain. No dizziness. No palpitation. No nausea. He continues to be on amlodipine 5 mg daily, aspirin once a day, Lipitor 40 mg daily, clonidine patch once a day #3, Plavix 75 mg daily, Lasix 20 mg daily. Lozol, losartan 100 mg daily, metoprolol succinate 50 mg twice a day. PHYSICAL EXAMINATION: Blood pressure running 137/80 with the heart rate in the 60s. LUNGS: Clear. HEART: Regular rate and rhythm. S1, S2. No S3. No rub. ABDOMEN: Soft, nontender, obese. EXTREMITIES: No edema. IMPRESSION: 1. Non ST-segment elevation myocardial infarction, status post stenting of the left anterior descending artery. 2. Obstructive disease in the circumflex. 3. Hypertension. 4. Hyperlipidemia. RECOMMENDATION: Patient should be able to be discharged home today and follow up in the office to be re- admitted electively to undergo stenting of the left circumflex. MMODL / IJN: [id number] /
--- NOTE | 2017-03-18 07:03 | DS ---
DISCHARGE SUMMARY DATE OF ADMISSION: DATE OF DISCHARGE: 03/17/2017 FINAL DIAGNOSES: 1. Acute non-ST elevation myocardial infarction. 2. Coronary artery disease with a prior stent. 3. Essential hypertension, uncontrolled. 4. Primary osteoarthritis of multiple joints. 5. Peripheral arterial disease. 6. Benign prostatic hypertrophy. 7. Obesity; body mass index 39.7. 8. Hyperlipidemia. HOSPITAL COURSE: This patient presented with a rather cardiac sounding presentation, acute non-ST elevation [place] per Cardiology. The patient did undergo coronary intervention by Dr. Aguillon and successful stenting of the mid LAD was done. The patient is due to return for a second session to get the circumflex done. Currently, patient is up and about. No chest pain or shortness of breath. ON EXAMINATION: Lungs are clear. CARDIOVASCULAR: First and second sounds normal. DISCHARGE MEDICATIONS: 1. Doxazosin 3 mg q.h.s. 2. Losartan 100 mg p.o. daily. 3. Toprol XL 50 mg p.o. b.i.d. 4. Norvasc 5 mg p.o. daily. 5. Catapres patch 0.3 daily every weekly on Friday. 6. Nitrostat 0.4 sublingual q.5 p.r.n. 7. Lasix 20 mg p.o. daily. 8. Flomax 0.4 mg q.h.s. 9. Lamisil 250 mg p.o. daily. 10.Aspirin 81 mg p.o. daily. 11.Lipitor 40 mg q.h.s. 12.Plavix 75 mg p.o. daily. 13.Lozol 2.5 mg on Friday, Friday, Friday and Friday and 5 mg on Friday and . 14.K-Dur 20 mEq daily. Follow up with Dr. Aguillon on 03/25/17. Follow up with Dr. Astudillo on 03/20/17. Post cath orders. Care was discussed with the patient and . Questions were answered. MMODL / IJN: [id number] /
== END 2017-03-17 15:29 | disposition home or self-care (01) | DRG 247 ==
LOC: EC 18:31 → 3SUR 19:53 → 6SEL 03-15 14:22 → OBSVTOIN 03-16 08:48
PROVIDERS: ADMIT Hospitalist; ATTEND Hospitalist
PROC: B2111ZZ Fluoroscopy of Multiple Coronary Arteries using Low Osmolar Contrast (ICD-10-PCS; 2017-03-15)
PROC: 4A023N7 Measurement of Cardiac Sampling and Pressure, Left Heart, Percutaneous Approach (ICD-10-PCS; principal; 2017-03-15 12:00)
PROC: 027034Z Dilation of Coronary Artery, One Artery with Drug-eluting Intraluminal Device, Percutaneous Approach (ICD-10-PCS; 2017-03-15 12:00)
DX: I21.4 Non-ST elevation (NSTEMI) myocardial infarction (principal); E66.9 Obesity, unspecified; I73.9 Peripheral vascular disease, unspecified; I25.110 Atherosclerotic heart disease of native coronary artery with unstable angina pectoris; I10 Essential (primary) hypertension; M19.90 Unspecified osteoarthritis, unspecified site; E78.5 Hyperlipidemia, unspecified; M81.0 Age-related osteoporosis without current pathological fracture; R60.9 Edema, unspecified; N40.0 Benign prostatic hyperplasia without lower urinary tract symptoms; Z96.652 Presence of left artificial knee joint; Z68.39 Body mass index [BMI] 39.0-39.9, adult; Z79.02 Long term (current) use of antithrombotics/antiplatelets; Z79.82 Long term (current) use of aspirin; Z79.899 Other long term (current) drug therapy; Z88.0 Allergy status to penicillin; Z88.8 Allergy status to other drugs, medicaments and biological substances; Z95.5 Presence of coronary angioplasty implant and graft; Z81.8 Family history of other mental and behavioral disorders; Z87.891 Personal history of nicotine dependence; Z85.828 Personal history of other malignant neoplasm of skin; Z80.8 Family history of malignant neoplasm of other organs or systems; I25.2 Old myocardial infarction
CPT/HCPCS: 36415; 71046; 80048; 80053; 80061; 82550; 82553; 83690; 83735; 84484; 85025; 85049; 85379; 85610; 85730; 93005; 93306; 93458; 96374; 99291

== ENCOUNTER 2017-04-02 06:14 | Day surgery (SDC) | payer OTHER ==
[2017-03-31 08:57] VITALS: BMI 36.1
[2017-04-02] MEDS ORDERED: ASPIRIN 325 MG TAB PO ONE (06:23)
[2017-04-02] MEDS ORDERED: ALPRAZolam 0.25 MG TAB PO PRN (06:23)
[2017-04-02] MEDS ORDERED: SODIUM CHLORIDE 0.9% 1,000 ML in EMPTY BAG 1 BAG IV ONE (06:23)
[2017-04-02] MEDS ORDERED: ALPRAZolam 0.5 MG TAB PO STA (07:13)
[2017-04-02] MEDS ORDERED: ALPRAZolam 0.25 MG TAB ONE (07:15)
[2017-04-02] MEDS ORDERED: LIDOCAINE 2% INJ 20 MG/ML (20 ML MDV) ONE (07:16)
[2017-04-02] MEDS ORDERED: diphenhydrAMINE 50 MG/ML 1 ML VIAL ONE (07:32)
[2017-04-02] MEDS ORDERED: fentaNYL (PF) 50 MCG/ML 2 ML AMP ONE (07:32)
[2017-04-02] MEDS ORDERED: fentaNYL (PF) 50 MCG/ML 2 ML AMP IV ONE (07:33)
[2017-04-02] MEDS ORDERED: diphenhydrAMINE 50 MG/ML 1 ML VIAL IVP ONE (07:33)
[2017-04-02] MEDS ORDERED: LIDOCAINE 2% INJ 20 MG/ML SQ ONE (07:37)
[2017-04-02] MEDS ORDERED: BIVALIRUDIN 250 MG in SODIUM CHLORIDE 0.9% 50 ML IV ONE (07:47)
[2017-04-02] MEDS ORDERED: BIVALIRUDIN BOLUS 250 MG/50 ML IV ONE (07:47)
[2017-04-02] MEDS ORDERED: IOHEXOL 350 MG/ML 125ML BOTTLE INJ ONE (08:01)
[2017-04-02] MEDS ORDERED: ATROPINE SULFATE 0.1 MG/ML 10ML SYRINGE IV PRN (08:12)
[2017-04-02] MEDS ORDERED: MAG HYDROX/AL HYDROX/SIMETH 30 ML CUP PO PRN (08:12)
[2017-04-02] MEDS ORDERED: ZOLPIDEM 5 MG TAB PO PRN (08:12)
[2017-04-02] MEDS ORDERED: NITROGLYCERIN SL TABS 0.4 MG TAB SUBLINGUAL PRN ×2 (08:12→08:13)
[2017-04-02] MEDS ORDERED: RX INFO: IV CONTRAST WAS GIVEN 1 EACH MISC MISCELLANE PRN (08:12)
[2017-04-02] MEDS ORDERED: SODIUM CHLORIDE 0.9% 1,000 ML IV SCH (08:15)
[2017-04-02] MEDS ORDERED: POTASSIUM CHLORIDE ER 20 MEQ TAB.ER PO SCH ×2 (09:00→21:00)
[2017-04-02] MEDS ORDERED: INDAPAMIDE 2.5 MG TAB PO SCH (09:00)
--- NOTE | 2017-04-02 09:49 | PTCA ---
PERCUTANEOUSTRANS CORORONARY ANGIOGRAPHY Mr. Chauhan is a 61-year-old male with known history of coronary artery disease, who recently presented with non ST-segment elevation myocardial infarction, underwent stenting of his LAD. He is brought back electively to undergo stenting of the left circumflex. The procedures, risks and complication were discussed with the patient who is in full understanding and agreement. PROCEDURE: Patient was brought to Change Control Analyst in a fasting semi-sedated state after receiving fentanyl and Benadryl and achieving moderate conscious sedated state. Using Xylocaine anesthesia and Seldinger technique, a 6-Argentine sheath was introduced in the right femoral artery. Selective left coronary angiography was initially performed using 6- Argentine FR4 guiding catheter that was exchanged to a 6-Argentine FL4 and half guiding catheter after cannulating the left main, a 0.014 advanced medium weight J-wire was advanced across the lesion and positioned distal left circumflex. Following that, a 3.0 x 23 mm Xience Alpine stent was deployed, postdilated at 16 atmospheres. After the last inflation, after appropriate wait, the balloon and the guidewire were withdrawn back in the guiding catheter. Images were obtained and repeated. Those images reveal stable successful stenting. At that point, the guiding catheter, the balloon and the guidewire were removed. The sheath was removed. Hemostasis was obtained with deployment of an Angio-Seal. There was no immediate complication. Patient is returned to his room in stable condition. Of note, patient received Angiomax per protocol. He was continued on Plavix. He had no significant chest pain or EKG changes with the inflations. RESULTS: Successful stenting of the proximal left circumflex with reduction of stenosis from 70% to 0%. RECOMMENDATION: The patient will be continued on aspirin, Plavix, beta rebekah, NALINI inhibitor, statin. The importance of dual antiplatelet treatment were discussed with the patient and his family who are in full understanding and agreement. Duration of the procedure is 28 minutes. MMODL / IJN: [id number] /
[2017-04-02] MEDS: FUROSEMIDE 20 MG TAB PO SCH (17:51)
[2017-04-02] MEDS: ASPIRIN 81 MG PO SCH (17:51)
[2017-04-02] MEDS: CLOPIDOGREL 75 MG TAB PO SCH (17:51)
[2017-04-02] MEDS: METOPROLOL SUCCINATE (ER) 50 MG TAB.ER.24H PO SCH ×2 (17:52→20:14)
[2017-04-02] MEDS: POTASSIUM CHLORIDE ER 20 MEQ TAB.ER PO SCH (17:52)
[2017-04-02] MEDS: LOSARTAN 50 MG TAB PO SCH (17:52)
[2017-04-02] MEDS: TERBINAFINE 250 MG TAB PO SCH (17:52)
[2017-04-02] MEDS ORDERED: amLODIPine 5 MG TAB PO SCH (21:00)
[2017-04-02] MEDS ORDERED: DOXAZOSIN 2 MG TAB PO SCH (21:00)
[2017-04-02] MEDS ORDERED: TAMSULOSIN 0.4 MG CAP.ER.24H PO SCH (21:00)
[2017-04-02] MEDS ORDERED: ATORVASTATIN 40 MG TAB PO SCH (21:00)
[2017-04-02 21:43] VITALS: RESP 18
[2017-04-03 06:13] LABS: Anion Gap 11 mmol/L; Blood Urea Nitrogen 15 mg/dL (9-20); Calcium 9.4 mg/dL (8.4-10.2); Carbon Dioxide 26 mmol/L (22-30); Chloride 104 mmol/L (98-107); Glucose 110 mg/dL (74-99); Potassium 3.4 mmol/L (3.5-5.1); Sodium 141 mmol/L (137-145)
[2017-04-03] MEDS: CLOPIDOGREL 75 MG TAB PO SCH (08:20)
[2017-04-03] MEDS: ASPIRIN 81 MG PO SCH (08:20)
[2017-04-03] MEDS: TERBINAFINE 250 MG TAB PO SCH (08:21)
[2017-04-03] MEDS: METOPROLOL SUCCINATE (ER) 50 MG TAB.ER.24H PO SCH (08:21)
[2017-04-03] MEDS: LOSARTAN 50 MG TAB PO SCH (08:21)
[2017-04-03] MEDS: POTASSIUM CHLORIDE ER 20 MEQ TAB.ER PO SCH (08:22)
[2017-04-03] MEDS: FUROSEMIDE 20 MG TAB PO SCH (08:22)
[2017-04-03 08:27] VITALS: BP 138/82; PULSE 58; TEMP 97.6
[2017-04-03] MEDS ORDERED: INDAPAMIDE 2.5 MG TAB PO SCH (09:00)
--- NOTE | 2017-04-03 09:11 | PN ---
PROGRESS NOTE Mr. Chauhan is a 61-year-old male with a known history of coronary artery disease who was admitted yesterday to undergo a percutaneous revascularization. He underwent angioplasty and stenting of the left circumflex. He is doing well this morning. Ambulating without difficulty, denying chest pain. No dizziness. No palpitation. Continued to be on amlodipine once a day, aspirin once a day, Lipitor 4 mg daily, clonidine patch 0.3 mg every 24 hours, Plavix 75 mg daily, Lasix 20 mg daily, Lozol, losartan 100 mg daily, metoprolol succinate 50 mg twice a day, tamsulosin and Lamisil. PHYSICAL EXAMINATION: Blood pressure 138/80 with the heart rate in the 50s. LUNGS: Clear. HEART: Regular rate and rhythm, S1, S2. No S3. No rub. ABDOMEN: Soft, nontender. Right groin, no hematoma. EKG revealed no acute changes. LAB DATA: Lab data revealed potassium 3.4. BUN and creatinine 15 and 0.9. IMPRESSION: 1. Status post stenting of left circumflex. 2. Status post stenting of the left anterior descending artery 10 days ago. 3. Hypertension. 4. Hyperlipidemia. RECOMMENDATION: Patient will be discharged home today and followed as an outpatient. MMODL / IJN: [id number] /
[2017-04-07] MEDS ORDERED: cloNIDine 0.3 MG/24HR PATCH 1 PATCH PATCH TRANSDERM SCH (09:00)
== END 2017-04-03 09:39 | disposition home or self-care (01) ==
LOC: CATHCVL 06:14 → 6SEL 08:04 → CATHCVL 04-03 09:39
PROVIDERS: ATTEND Internal Medicine Interventional Cardiology
DX: I25.10 Atherosclerotic heart disease of native coronary artery without angina pectoris (principal); Z95.5 Presence of coronary angioplasty implant and graft; I25.2 Old myocardial infarction; I10 Essential (primary) hypertension; E78.2 Mixed hyperlipidemia; E66.9 Obesity, unspecified; Z68.41 Body mass index [BMI] 40.0-44.9, adult; Z82.49 Family history of ischemic heart disease and other diseases of the circulatory system; Z79.02 Long term (current) use of antithrombotics/antiplatelets; Z79.82 Long term (current) use of aspirin; Z79.899 Other long term (current) drug therapy; Z88.1 Allergy status to other antibiotic agents; Z88.0 Allergy status to penicillin; Z88.8 Allergy status to other drugs, medicaments and biological substances; Z87.891 Personal history of nicotine dependence
CPT/HCPCS: 80048; 84132; C9600; C1769 ×3; C1760; C1887 ×2; C1894; C1874; J2001; J1200; J3010; J0583; Q9967

== ENCOUNTER 2017-11-28 19:38 | Inpatient (IN) | payer OTHER ==
--- NOTE | 2017-11-28 20:05 | ED ---
General Adult HPI - General Chief complaint: Chest Pain Stated complaint: chest pain Time Seen by Provider: 11/28/17 19:50 Source: patient Mode of arrival: ambulatory Limitations: no limitations - Related Data Home Medications Medication Instructions Recorded Confirmed Losartan Potassium 100 mg PO DAILY 08/07/16 11/28/17 Metoprolol Succinate [Toprol XL] 50 mg PO BID 08/07/16 11/28/17 cloNIDine 0.3 MG/24HR PATCH 1 patch TRANSDERM MO 08/07/16 11/28/17 [Catapres-TTS] Furosemide [Lasix] 20 mg PO DAILY 03/14/17 11/28/17 Tamsulosin HCl [Flomax] 0.4 mg PO HS 03/14/17 11/28/17 Terbinafine HCl [LamISIL] 250 mg PO DAILY 03/14/17 11/28/17 Potassium Chloride [Klor-Con 20] 40 meq PO DAILY 03/31/17 11/28/17 Clopidogrel [Plavix] 75 mg PO DAILY 04/02/17 11/28/17 Anastrozole [Arimidex] 1 mg PO MOWEFR 11/28/17 11/28/17 Ergocalciferol [Vitamin D2] 50,000 unit PO MO 11/28/17 11/28/17 Ibuprofen [Motrin Ib] 400 - 600 mg PO Q8H PRN 11/28/17 11/28/17 Testosterone Cypionate 200 mg IM MO 11/28/17 11/28/17 [Depo-Testosterone] Previous Rx's Medication Instructions Recorded Aspirin 81 mg PO DAILY #302 chew 03/17/17 Atorvastatin [Lipitor] 40 mg PO HS #30 tab 03/17/17 Indapamide [Lozol] 2.5 mg PO MoTuWeFrSa@0900 tab 03/17/17 Indapamide [Lozol] 5 mg PO SuTh@0900 tab 03/17/17 Nitroglycerin Sl Tabs [Nitrostat] 0.4 mg SUBLINGUAL Q5M PRN #25 tab 03/17/17 Allergies Allergy/AdvReac Type Severity Reaction Status Date / Time Penicillins Allergy Mild Unknown Verified 11/28/17 20:30 Childhood amlodipine [From Lotrel] AdvReac ITCHING/SWE Verified 11/28/17 20:30 LLING benazepril [From Lotrel] AdvReac ITCHING/SWE Verified 11/28/17 20:30 LLING Review of Systems ROS Statement: Those systems with pertinent positive or pertinent negative responses have been documented in the HPI. ROS Other: All systems not noted in ROS Statement are negative. Past Medical History Past Medical History: Coronary Artery Disease (CAD), Cancer, GI Bleed, Hypertension, Myocardial Infarction ([place]), Osteoarthritis (OA), Prostate Disorder , Vascular Disorder Additional Past Medical History / Comment(s): CURRENT BASAL CELL SKIN CANCER R EAR, PVD, ARTHRITIS IN KNEES. elevated psa level, enlarged prostate Last Myocardial Infarction Date:: 2016 History of Any Multi-Drug Resistant Organisms: None Reported Past Surgical History: Heart Catheterization With Stent, Joint Replacement, Orthopedic Surgery Additional Past Surgical History / Comment(s): PCI WITH STENT RCA ,Bilateral Elbow Surgery; Left knee Replacement; Right knee arthroscopy,basal cell cancer rt ear removed and had reconstructive sx. Past Anesthesia/Blood Transfusion Reactions: No Reported Reaction Date of Last Stent Placement:: 2017 Past Psychological History: No Psychological Hx Reported Smoking Status: Former smoker Past Alcohol Use History: Occasional Past Drug Use History: None Reported - Past Family History Father Family Medical History: Dementia Additional Family Medical History / Comment(s): FATHER IS 84 YRS OLD. Mother Family Medical History: Cancer Additional Family Medical History / Comment(s): MOTHER OF CANCER-FOUND IN LIVER-PRIMARY NEVER KNOWN. General Exam Limitations: no limitations Course Vital Signs 11/28/17 11/28/17 11/28/17 19:45 20:13 21:52 Temperature 98.4 F 97.9 F Pulse Rate 86 75 Pulse Rate [ 85 Lmsw ] Respiratory 20 16 16 Rate Blood Pressure 151/98 173/83 O2 Sat by Pulse 97 98 Oximetry EKG Findings - EKG Comments: EKG Findings:: EKG shows sinus rhythm rate of 86, SC 174, QRS 112, QTc 464 Medical Decision Making - Lab Data Result diagrams: 11/28/17 20:00 11/28/17 20:00 Lab Results 11/28/17 11/28/17 11/28/17 Range/Units 20:00 20:00 20:00 WBC 9.4 (3.8-10.6) k/uL RBC 5.78 (4.30-5.90) m/uL Hgb 16.9 (13.0-17.5) gm/dL Hct 51.9 (39.0-53.0) % MCV 89.9 (80.0-100.0) fL MCH 29.2 (25.0-35.0) pg MCHC 32.5 (31.0-37.0) g/dL RDW 15.0 (11.5-15.5) % Plt Count 289 (150-450) k/uL Neutrophils % 60 % Lymphocytes % 28 % Monocytes % 6 % Eosinophils % 4 % Basophils % 1 % Neutrophils # 5.7 (1.3-7.7) k/uL Lymphocytes # 2.7 (1.0-4.8) k/uL Monocytes # 0.5 (0-1.0) k/uL Eosinophils # 0.4 (0-0.7) k/uL Basophils # 0.1 (0-0.2) k/uL PT (9.0-12.0) sec INR (<1.2) APTT (22.0-30.0) sec Sodium 142 (137-145) mmol/L Potassium 3.4 L (3.5-5.1) mmol/L Chloride 103 (98-107) mmol/L Carbon Dioxide 28 (22-30) mmol/L Anion Gap 11 mmol/L BUN 13 (9-20) mg/dL Creatinine 0.94 (0.66-1.25) mg/dL Est GFR (CKD-EPI)AfAm >90 (>60 ml/min/1.73 sqM) Est GFR (CKD-EPI)NonAf 87 (>60 ml/min/1.73 sqM) Glucose 148 H (74-99) mg/dL Calcium 10.4 H (8.4-10.2) mg/dL Magnesium 2.0 (1.6-2.3) mg/dL Total Bilirubin 1.0 (0.2-1.3) mg/dL AST 41 (17-59) U/L ALT 44 (21-72) U/L Alkaline Phosphatase 73 (38-126) U/L Total Creatine Kinase 107 (55-170) U/L CK-MB (CK-2) 3.8 H (0.0-2.4) ng/mL CK-MB (CK-2) Rel Index 3.6 Troponin I 0.096 H* (0.000-0.034) ng/mL Total Protein 7.3 (6.3-8.2) g/dL Albumin 4.4 (3.5-5.0) g/dL Lipase 73 (23-300) U/L 11/28/17 Range/Units 20:00 WBC (3.8-10.6) k/uL RBC (4.30-5.90) m/uL Hgb (13.0-17.5) gm/dL Hct (39.0-53.0) % MCV (80.0-100.0) fL MCH (25.0-35.0) pg MCHC (31.0-37.0) g/dL RDW (11.5-15.5) % Plt Count (150-450) k/uL Neutrophils % % Lymphocytes % % Monocytes % % Eosinophils % % Basophils % % Neutrophils # (1.3-7.7) k/uL Lymphocytes # (1.0-4.8) k/uL Monocytes # (0-1.0) k/uL Eosinophils # (0-0.7) k/uL Basophils # (0-0.2) k/uL PT 10.1 (9.0-12.0) sec INR 1.0 (<1.2) APTT 22.4 (22.0-30.0) sec Sodium (137-145) mmol/L Potassium (3.5-5.1) mmol/L Chloride (98-107) mmol/L Carbon Dioxide (22-30) mmol/L Anion Gap mmol/L BUN (9-20) mg/dL Creatinine (0.66-1.25) mg/dL Est GFR (CKD-EPI)AfAm (>60 ml/min/1.73 sqM) Est GFR (CKD-EPI)NonAf (>60 ml/min/1.73 sqM) Glucose (74-99) mg/dL Calcium (8.4-10.2) mg/dL Magnesium (1.6-2.3) mg/dL Total Bilirubin (0.2-1.3) mg/dL AST (17-59) U/L ALT (21-72) U/L Alkaline Phosphatase (38-126) U/L Total Creatine Kinase (55-170) U/L CK-MB (CK-2) (0.0-2.4) ng/mL CK-MB (CK-2) Rel Index Troponin I (0.000-0.034) ng/mL Total Protein (6.3-8.2) g/dL Albumin (3.5-5.0) g/dL Lipase (23-300) U/L Disposition Clinical Impression: Unstable angina pectoris, Chest pain, Acute non-ST segment elevation myocardial infarction (STEMI) following previous myocardial infarction Disposition: ADMITTED IP TO THIS HOSP Condition: Fair Is patient prescribed a controlled substance at d/c from ED?: No Referrals: Bryce Astudillo MD [Primary Care Provider] - 1-2 days
[2017-11-28 20:36] LABS: Basophils # (A) 0.1 k/uL (0-0.2); Basophils % (A) 1 %; Eosinophils # (A) 0.4 k/uL (0-0.7); Eosinophils % (A) 4 %; HCT 51.9 % (39.0-53.0); HGB 16.9 gm/dL (13.0-17.5); Lymphocytes # (A) 2.7 k/uL (1.0-4.8); Lymphocytes % (A) 28 %; MCH 29.2 pg (25.0-35.0); MCHC 32.5 g/dL (31.0-37.0); MCV 89.9 fL (80.0-100.0); Monocytes # (A) 0.5 k/uL (0-1.0); Monocytes % (A) 6 %; Neutrophils # (A) 5.7 k/uL (1.3-7.7); Neutrophils % (A) 60 %; Platelet Count 289 k/uL (150-450); RBC 5.78 m/uL (4.30-5.90); WBC 9.4 k/uL (3.8-10.6)
[2017-11-28 20:48] LABS: ALT 44 U/L (21-72); AST 41 U/L (17-59); Albumin 4.4 g/dL (3.5-5.0); Alkaline Phosphatase 73 U/L (38-126); Anion Gap 11 mmol/L; Blood Urea Nitrogen 13 mg/dL (9-20); Calcium 10.4 mg/dL (8.4-10.2); Carbon Dioxide 28 mmol/L (22-30); Chloride 103 mmol/L (98-107); Glucose 148 mg/dL (74-99); Lipase 73 U/L (23-300); Sodium 142 mmol/L (137-145); Total Protein 7.3 g/dL (6.3-8.2)
[2017-11-28 20:49] LABS: Partial Thromboplastin Time 22.4 sec (22.0-30.0); Prothrombin Time 10.1 sec (9.0-12.0)
--- NOTE | 2017-11-28 20:49 | XR ---
EXAMINATION TYPE: XR chest 2V DATE OF EXAM: 11/28/2017 COMPARISON: 03/14/2017 HISTORY: Chest pain TECHNIQUE: Frontal and lateral views of the chest are obtained. FINDINGS: There is no heart failure nor confluent pneumonic infiltrate. Costophrenic angles are lizzie r. Thoracic aorta is atheromatous. There are chest leads. Bony thorax is intact. IMPRESSION: No active cardiopulmonary disease. No change. No change.
[2017-11-28 20:54] LABS: Potassium 3.4 mmol/L (3.5-5.1)
[2017-11-28 21:03] LABS: Creatine Kinase MB 3.8 ng/mL (0.0-2.4)
[2017-11-28 21:09] LABS: Troponin I 0.096 ng/mL (0.000-0.034)
[2017-11-28] MEDS ORDERED: HEPARIN SODIUM,PORCINE 5,000 UNIT/ML 1 ML VIAL IV ONE (22:20)
[2017-11-28] MEDS ORDERED: ASPIRIN 81 MG PO STA (22:20)
[2017-11-28] MEDS ORDERED: HEPARIN SODIUM,PORCINE 5,000 UNIT/ML 1 ML VIAL IV PRN (22:20)
[2017-11-28] MEDS ORDERED: NITROGLYCERIN SL TABS 0.4 MG TAB SUBLINGUAL PRN (22:20)
[2017-11-28] MEDS ORDERED: HEPARIN SOD,PORK IN 0.45% NACL 25,000 UNIT in 0.45% NACL 1 500ML.BAG IV SCH (22:30)
[2017-11-29 02:24] LABS: Creatine Kinase MB 15.5 ng/mL (0.0-2.4)
[2017-11-29 02:26] LABS: Troponin I 2.22 ng/mL (0.000-0.034)
[2017-11-29 07:26] LABS: Mean Platelet Volume 6.5; Platelet Count 255 k/uL (150-450)
[2017-11-29 07:46] LABS: Cholesterol 112 mg/dL (<200); HDL Cholesterol 29 mg/dL (40-60); LDL Cholesterol,Calculated 42 mg/dL (0-99); Triglycerides 205 mg/dL (<150)
[2017-11-29 08:08] LABS: Troponin I 6.28 ng/mL (0.000-0.034)
[2017-11-29] MEDS: CLOPIDOGREL 75 MG TAB PO SCH (08:20)
[2017-11-29] MEDS: LOSARTAN 50 MG TAB PO SCH (08:21)
[2017-11-29] MEDS ORDERED: ASPIRIN 325 MG TAB PO STA (08:38)
[2017-11-29] MEDS ORDERED: ATORVASTATIN 80 MG TAB PO STA (08:38)
[2017-11-29] MEDS ORDERED: ALPRAZolam 0.25 MG TAB PO PRN (08:38)
[2017-11-29] MEDS ORDERED: SODIUM CHLORIDE 0.9% 1,000 ML in EMPTY BAG 1 BAG IV ONE (08:38)
[2017-11-29] MEDS ORDERED: ALPRAZolam 0.5 MG TAB PO PRN (08:38)
[2017-11-29] MEDS ORDERED: NITROGLYCERIN SL TABS 0.4 MG TAB SUBLINGUAL PRN ×2 (08:38→12:25)
[2017-11-29] MEDS ORDERED: ASPIRIN 325 MG TAB PO SCH (09:00)
[2017-11-29] MEDS ORDERED: METOPROLOL TARTRATE 25 MG TAB PO SCH (09:00)
[2017-11-29] MEDS: ATORVASTATIN 40 MG TAB PO SCH (09:03)
[2017-11-29] MEDS: ACETAMINOPHEN TAB 500 MG TAB PO PRN ×2 (09:08→16:24)
[2017-11-29] MEDS: METOPROLOL SUCCINATE (ER) 50 MG TAB.ER.24H PO SCH ×2 (09:39→22:13)
[2017-11-29] MEDS: POTASSIUM CHLORIDE ER 20 MEQ TAB.ER PO SCH (09:39)
--- NOTE | 2017-11-29 10:25 | CONS ---
CONSULTATION CHIEF COMPLAINT: Chest pain. Mr. Chauhan is a 62-year-old gentleman with history of coronary artery disease, status post angioplasty of right coronary artery and LAD, who presents to hospital complaining of chest pain. Patient has had shortness of breath and leg edema and had recently been evaluated by his primary care physician and apparently was treated with diuretics with significant improvement in his symptoms. Yesterday, he started having chest pressure that was primarily on the right side, described it as a pressure-like sensation, mild to moderate intensity, came on at rest and he was somewhat short of breath, came to the ER. EKG showed sinus bradycardia with nonspecific ST-T wave changes. First set of troponin was 0.09 and the second set came back elevated at 2.2. At the time of my evaluation, he is chest pain-free and hemodynamically stable. He is currently on IV heparin. Given his clinical presentation, multiple coronary intervention and elevated troponin, I advised him to undergo cardiac catheterization to evaluate his coronary anatomy and stream his management. Dr. Aguillon, his primary regulatory affairs specialist will perform the same sometime this morning. PAST MEDICAL HISTORY: Significant for coronary artery disease, status post multivessel angioplasty, hypertension, dyslipidemia. MEDICATIONS: At home included aspirin, amlodipine, Catapres, , K-Leta con, Lasix, Lipitor, losartan, Niaspan, Plavix and Toprol-XL. ALLERGIES: To PENICILLIN and LOTREL. FAMILY HISTORY: Negative for premature coronary artery disease. SOCIAL HISTORY: Denies current smoking, EtOH abuse, or drug abuse. REVIEW OF SYSTEMS: HEENT is unremarkable. Cardiac as described above. Respiratory as described above. GI: Negative. GENITOURINARY: Negative. ALLERGY/IMMUNOLOGY: Negative. SKIN: Negative. MUSCULOSKELETAL: Significant for arthritis. PSYCHOSOCIAL: Negative. ENDOCRINE: Negative. CONSTITUTIONAL: Negative. ONCOLOGICAL: Negative. The rest of the system review is not relevant. PHYSICAL EXAM: Comfortable at rest. Blood pressure is elevated at 180/106, respiratory rate is 18. Chest exam reveals diminished air entry at the bases. Heart exam reveals first and second heart sounds, an S4 is heard. No murmur. Abdomen is soft. Exam of extremities reveals 1+ edema. Foot pulses are intact. EKG shows sinus bradycardia with nonspecific ST-T wave changes. LABS: Show that the troponin is elevated. Hemoglobin is 16.9, platelet count is 289, potassium is 3.4, creatinine is 0.94. Troponins are at 0.09, 2.2 and 6.2. LDL cholesterol is well controlled at 42, HDL is low at 29. ASSESSMENT: 1. Acute non ST-segment elevation myocardial infarction. 2. Uncontrolled hypertension. 3. History of coronary artery disease, status post prior angioplasty. 4. History of congestive heart failure. PLAN: Patient will undergo cardiac catheterization with possible angioplasty today. I will put an inch of nitro paste on him which hopefully should control his blood pressure better. Also, he had been started back on Catapres. Continue the Toprol and continue the rest of his medications. MMODL / IJN: [id number] /
[2017-11-29] MEDS ORDERED: IV FLUID CONTINUATION 800 ML IV ONE (11:05)
[2017-11-29] MEDS ORDERED: fentaNYL (PF) 50 MCG/ML 2 ML AMP ONE (11:12)
[2017-11-29] MEDS ORDERED: LIDOCAINE 1% INJ 10MG/ML (20 ML MDV) ONE (11:12)
[2017-11-29] MEDS ORDERED: fentaNYL (PF) 50 MCG/ML 2 ML AMP IV ONE (11:22)
--- NOTE | 2017-11-29 11:23 | ECHOF ---
Referral Reason:chest pain MEASUREMENTS -------- HEIGHT: 195.6 cm WEIGHT: 157.8 kg BP: 181/96 RVIDd: 3.6 cm (< 3.3) IVSd: 1.9 cm (0.6 - 1.1) LVIDd: 4.2 cm (3.9 - 5.3) LVPWd: 1.8 cm (0.6 - 1.1) IVSs: 2.4 cm LVIDs: 3.2 cm LVPWs: 2.3 cm LA Diam: 4.1 cm (2.7 - 3.8) LAESV Index (A-L): 34.76 ml/m Ao Diam: 4.2 cm (2.0 - 3.7) AV Cusp: 2.9 cm (1.5 - 2.6) MV EXCURSION: 23.905 mm (> 18.000) MV EF SLOPE: 61 mm/s (70 - 150) EPSS: 1.0 cm MV E Clark: 0.72 m/s MV DecT: 207 ms MV A Clark: 0.55 m/s MV E/A Ratio: 1.30 RAP: 5.00 mmHg RVSP: 44.62 mmHg FINDINGS -------- Sinus rhythm. This was a technically difficult study with suboptimal views. The left ventricular size is normal. There is severe concentric left ventricular hypertrophy. Ove rall left ventricular systolic function is low-normal with, an EF between 50 - 55 %. The right ventricle is mildly enlarged. LA is moderately dilated 34-39 ml/m2 The right atrium was not well visualized. 3 ml of Lumason was utilized for enhancement of images. There is mild aortic valve sclerosis. The mitral valve is normal. Mild tricuspid regurgitation present. There is mild pulmonary hypertension. The right ventricular systolic pressure, as measured by Doppler, is 44.62mmHg. There is no pulmonic regurgitation present. The aortic root is dilated measuring 4.2cm. IVC Not well visulized. There is no pericardial effusion. CONCLUSIONS -------- 1. Sinus rhythm. 2. This was a technically difficult study with suboptimal views. 3. The left ventricular size is normal. 4. There is severe concentric left ventricular hypertrophy. 5. Overall left ventricular systolic function is low-normal with, an EF between 50 - 55 %. 6. The right ventricle is mildly enlarged. 7. LA is moderately dilated 34-39 ml/m2 8. The right atrium was not well visualized. 9. 3 ml of Lumason was utilized for enhancement of images. 10. There is mild aortic valve sclerosis. 11. The mitral valve is normal. 12. Mild tricuspid regurgitation present. 13. There is mild pulmonary hypertension. 14. The right ventricular systolic pressure, as measured by Doppler, is 44.62mmHg. 15. There is no pulmonic regurgitation present. 16. The aortic root is dilated measuring 4.2cm. 17. IVC Not well visulized. 18. There is no pericardial effusion. COURT OF APPEALS JUDGE: Rhonda Miranda RDCS
[2017-11-29] MEDS ORDERED: LIDOCAINE 1% INJ 10MG/ML (20 ML MDV) SQ ONE (11:24)
[2017-11-29] MEDS ORDERED: NITROGLYCERIN SL TABS 0.4 MG TAB SUBLINGUAL ONE ×2 (11:28)
[2017-11-29] MEDS ORDERED: BIVALIRUDIN BOLUS 250 MG/50 ML IV ONE (11:43)
[2017-11-29] MEDS ORDERED: BIVALIRUDIN 250 MG in SODIUM CHLORIDE 0.9% 40 ML IV ONE (11:44)
[2017-11-29] MEDS ORDERED: IOPAMIDOL-370 125ML BTL INJ ONE (11:46)
[2017-11-29] MEDS ORDERED: IOPAMIDOL-370 50ML BTL INJ ONE (12:03)
[2017-11-29] MEDS ORDERED: IOPAMIDOL-370 100ML BTL INJ ONE (12:03)
[2017-11-29] MEDS ORDERED: RX INFO: IV CONTRAST WAS GIVEN 1 EACH MISC MISCELLANE PRN (12:25)
[2017-11-29] MEDS ORDERED: ATROPINE SULFATE 0.1 MG/ML 10ML SYRINGE IV PRN (12:25)
[2017-11-29] MEDS ORDERED: MAG HYDROX/AL HYDROX/SIMETH 30 ML CUP PO PRN (12:25)
[2017-11-29] MEDS ORDERED: ZOLPIDEM 5 MG TAB PO PRN (12:25)
[2017-11-29] MEDS ORDERED: SODIUM CHLORIDE 0.9% 1,000 ML IV SCH (12:30)
[2017-11-29 13:01] VITALS: BMI 41.3
--- NOTE | 2017-11-29 13:04 | CC ---
CARDIAC CATHETERIZATION REPORT Mr. Chauhan is a 62-year-old male with known history of coronary artery disease, status post percutaneous revascularization of the circumflex and the LAD in March of this year, who presented with symptoms of angina pectoris and evidence consistent with non ST-segment elevation myocardial infarction with ST-segment depression on the lateral precordial leads. In view of that, recommendation made regarding cardiac catheterization. The procedures, risks and complications were discussed with the patient who is in full understanding and agreement. PROCEDURE: Patient was brought to the crown and bridge dental lab technician in a fasting semi-sedated state after receiving fentanyl and Benadryl and achieving moderate conscious sedated state. Using Xylocaine anesthesia and Seldinger technique, a 6-Omani sheath was introduced in the right femoral artery. Selective right and left angiography was performed using 6-Omani 5 bend left Trip catheter and a 6-Omani 4 bend right Trip catheter. Multiple views of the coronary artery including hemiaxial views obtained. Following that, angioplasty and stenting was performed. Following that, the 6-Omani tight pigtail catheter was introduced into the left ventricle and a 30 degree NAIR view of the left ventricle was obtained. Following that, catheter and sheaths were removed. Hemostasis was obtained with deployment of an Angio-Seal. There was no immediate complication. Patient is returned to his room in stable condition. FINDINGS: LEFT MAIN: This is a short sized vessel, bifurcating immediately into left anterior descending artery and left circumflex. Left main coronary artery has no evidence of high-grade stenosis. LEFT ANTERIOR DESCENDING ARTERY: This is a large-sized vessel, reaching toward the apex with a wraparound apex segment. The proximal left anterior descending artery has a 20% to 30% eccentric lesion. The mid stented segment of the LAD is patent with 20% plaque in the distal segment. There is diffuse intimal disease with area of stenosis up to 60% and then up to 90% in the apical segment. LEFT CIRCUMFLEX: This is a nondominant vessel, giving rise to a large obtuse marginal branch. The proximal left circumflex that stented in the past is patent. The obtuse marginal branch has a 99% stenosis. The rest of the vessel has intimal disease without any high-grade stenosis. RIGHT CORONARY ARTERY: This is a dominant vessel, large in caliber, giving rise to a PDA distally, tortuous in mid segment, diffusely diseased throughout its course with area stenosis up to 50%. LEFT VENTRICULOGRAM: Left ventriculogram is performed in 30 degree NAIR view and revealed normal left ventricular size and systolic function, ejection fraction is 55%. There was no significant mitral regurgitation. HEMODYNAMICS: There was no gradient across the aortic valve, the left ventricular end- diastolic pressure was 16 to 18 mmHg. CONCLUSION: 1. Critical stenosis in the distal second obtuse marginal branch which is new lesion compared to March 2017. 2. Patent stent of the circumflex and the left anterior descending artery. 3. Diffuse disease in the distal left anterior descending artery with moderate disease in the right coronary artery. RECOMMENDATION: In view of finding anatomy, I recommend proceeding with angioplasty and stenting of the obtuse marginal branch. The procedures, risks and complication were discussed with the patient who is in full understanding and agreement. MMODL / IJN: [id number] /
--- NOTE | 2017-11-29 13:10 | CC ---
CARDIAC CATHETERIZATION REPORT Mr. Chauhan is a 62-year-old male with a history of coronary artery disease, who presented with non ST-segment elevation myocardial infarction, underwent cardiac catheterization, was found to have critical stenosis involving the second obtuse marginal branch. In view of that, recommendation regarding angioplasty and stenting. The procedures, risks and complication were discussed with the patient who is in full understanding and agreement. PROCEDURE: A 6-Belizean FL 4.5 guiding catheter was introduced into the system after cannulating the left main, a 0.014 balanced medium weight J-wire was advanced across the lesion and positioned distally. A 2.75 x 15 mm Xience Jane stent was advanced, deployed and post- dilated at 16 atmospheres and after removing that balloon, another 2.75 x 12 mm Xience Jane stent was deployed and post-dilated at 16 atmospheres. Inflation overlap segment 16 atmospheres was done. Following that, the wire and the balloon withdrawn back in the guiding catheter. Images were obtained and repeated. Those images reveal stable successful stenting. At that point, the guiding catheter, the balloon and the guidewire were removed and left ventriculogram was performed. Following that, catheter and sheath were removed. Hemostasis was obtained with deployment of an Angio- Seal. There was no immediate complication. Patient is returned to his room in stable condition. Of note, patient received Angiomax per protocol. He had no chest discomfort or EKG changes with the inflation. RESULTS: Successful stenting of the second obtuse marginal branch with reduction of stenosis from 99% to 0%. RECOMMENDATION: Patient will be continued on aspirin, Plavix, beta blockers and statin. The importance of dual antiplatelet treatment were discussed with the patient and his family who are in full understanding and agreement. DURATION OF THE PROCEDURE: 41 minutes. MMODL / IJN: [id number] / MICHAEL
[2017-11-29] MEDS: TERBINAFINE 250 MG TAB PO SCH (16:22)
[2017-11-29] MEDS: FUROSEMIDE 20 MG TAB PO SCH (16:22)
[2017-11-29] MEDS: INDAPAMIDE 2.5 MG TAB PO SCH (16:22)
--- NOTE | 2017-11-29 20:01 | HP ---
HISTORY AND PHYSICAL DATE OF ADMISSION: 11/28/17 DATE OF SERVICE: 11/29/17. PRESENTING COMPLAINT: Chest pain. HISTORY OF PRESENTING COMPLAINT: This is a very pleasant 62-year-old patient who was here in March of this year. The patient had a non ST elevation myocardial infarction and had a successful stenting to the LAD done by Dr. Aguillon. The patient was then told to return for a 2nd lesion in the circumflex. The patient otherwise had been doing well, up and about. Yesterday evening around 5:30 p.m. the patient felt as though a Pit bull was sitting on the right side of the chest. Pain going to the back. The patient became more short of breath, tired, run down. The symptoms lasted for a good few hours. There was no perspiration, no dizziness, no lightheaded and patient presented to the ER. The patient ruled in for an acute myocardial infarction and was taken to the cardiac catheterization lab this afternoon by Dr. Aguillon. The patient was found to have a critical stenosis of the distal 2nd obtuse marginal branch. This stents to circumflex and left LAD were patent. Dr. Aguillon proceeded with angioplasty stenting of the obtuse marginal branch. Post procedure patient lying in the bed in the ICU, stable. Family at the bedside. REVIEW OF SYSTEMS: CONSTITUTIONAL: Tired. HEENT: None. RESPIRATORY: As above. CARDIOVASCULAR: As above. GASTROINTESTINAL: None. GENITOURINARY: Some BPH symptoms. DERMATOLOGICAL, HEMATOLOGIC, LYMPHATICS: None. PSYCHIATRY: None. NEUROLOGICAL: None. PAST MEDICAL HISTORY: Coronary artery with stent, hypertension, osteoarthritis, peripheral artery disease, BPH. PAST SURGICAL HISTORY: Cardiac cath with stent in 2007 in March of 2017, joint replacement, bilateral elbow surgery, left knee replacement, right knee arthroscopy, basal cell cancer, right ear removed and reconstructive surgery. 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 Smoked for close to 20 years. Stopped in 2005, . FAMILY HISTORY: Dementia. HOME MEDICATIONS: Catapres TTS patch every Friday, testosterone 200 mg IM on Friday. Lamisil 250 mg p.o. daily, Flomax 0.4 mg q.h.s., potassium 40 mEq a day, Nitrostat 0.4 sublingual q.5 p.r.n., Toprol-XL 50 mg b.i.d., losartan 100 mg a day, Lozol 5 mg on Friday and and 2.5 mg Friday, Friday, Friday, Friday, Friday and Motrin 400 to 600 q.8h p.r.n., Lasix 20 mg a day, Vitamin D2 50,000 units on Friday. Plavix 75 mg a day, Lipitor 40 mg q.h.s., aspirin 81 mg a day, 100 mg p.o. Friday, Friday and Friday. ALLERGIES: PENICILLIN, AMLODIPINE, BENAZEPRIL. PHYSICAL EXAMINATION: Vital signs on presentation: Temperature 98.4, pulse 80, respirations 16, blood pressure 151/98, pulse ox 97% on room air. GENERAL APPEARANCE: Well built, BMI 41.3. Lying in bed, awake. EYES: Pupils equal. Conjunctivae normal. HEENT: External appearance of nose and ears normal. Oral cavity normal. NECK: JVD not raised. Mass not palpable. RESPIRATORY: Effort normal. Lungs fair entry. CARDIOVASCULAR: 1st and 2nd sounds, no edema. ABDOMEN: Soft, nontender. Liver and spleen not palpable. LYMPHATIC: No lymph node palpable in the neck or axillae. PSYCHIATRY: Alert and oriented x3. Mood and affect normal. NEUROLOGICAL: Pupils equal. Cranial nerves grossly intact. Power and sensation grossly intact. INVESTIGATIONS: White count 9.4, hemoglobin 16.9, potassium 3.4, BUN and creatinine are normal. Troponin 0.096, 2.2, 6.2. LDL 42. EKG tracing present on admission, personally reviewed by me, showed some ST-segment depression in inferolateral leads. Chest x-ray film personally interpreted by me shows questionable venous prominence, some cardiomegaly. 2D echocardiogram showed EF of 50-55 percent. ASSESSMENT: 1. Acute non ST elevation myocardial infarction with successful stenting of the 2nd obtuse marginal branch. 2. Coronary artery disease with prior history of stents. 3. Morbid obesity, BMI 41.3. 4. Chronic congestive heart failure from diastolic dysfunction underlying ischemic heart disease. 5. Essential hypertension. 6. Primary osteoarthritis. 7. BPH. PLAN: Patient's home medications are resumed. The patient also received IV heparin. The patient is on aspirin and Plavix. Weight loss measures were discussed with the patient and . Close eye will be kept on the patient. MMODL / IJN: [id number] /
[2017-11-29] MEDS: TAMSULOSIN 0.4 MG CAP.ER.24H PO SCH (22:13)
[2017-11-30 06:35] LABS: Mean Platelet Volume 7.3; Platelet Count 233 k/uL (150-450)
[2017-11-30 06:56] LABS: Anion Gap 8 mmol/L; Calcium 9.1 mg/dL (8.4-10.2); Carbon Dioxide 27 mmol/L (22-30); Chloride 108 mmol/L (98-107); Glucose 94 mg/dL (74-99); Sodium 143 mmol/L (137-145)
[2017-11-30 07:02] LABS: Blood Urea Nitrogen 11 mg/dL (9-20); Potassium 3.5 mmol/L (3.5-5.1)
[2017-11-30] MEDS: METOPROLOL SUCCINATE (ER) 50 MG TAB.ER.24H PO SCH ×2 (07:33→22:51)
[2017-11-30] MEDS: TERBINAFINE 250 MG TAB PO SCH (07:33)
[2017-11-30] MEDS: POTASSIUM CHLORIDE ER 20 MEQ TAB.ER PO SCH (07:34)
[2017-11-30] MEDS: ASPIRIN 81 MG PO SCH (07:34)
[2017-11-30] MEDS: LOSARTAN 50 MG TAB PO SCH (07:34)
[2017-11-30] MEDS: FUROSEMIDE 20 MG TAB PO SCH (07:34)
[2017-11-30] MEDS: CLOPIDOGREL 75 MG TAB PO SCH (07:34)
[2017-11-30] MEDS ORDERED: INDAPAMIDE 2.5 MG TAB PO SCH (09:00)
[2017-11-30] MEDS: hydrALAZINE HCL 50 MG TAB PO SCH ×3 (11:15→21:24)
--- NOTE | 2017-11-30 11:49 | P.PN ---
Subjective Progress Note Date: 11/30/17 This is a pleasant 62-year-old gentleman with known history of CAD, status post percutaneous revascularization of the circumflex and LAD in March of this year. He presented with symptoms of angina and evidence consistent with non-ST segment elevation, ST segment depression on the lateral precordial leads. In view of that he was recommended to undergo cardiac catheterization. Cardiac catheterization revealed critical stenosis in the distal second OM branch which is a new lesion compared to March 2017, pain some of the circumflex and LAD, diffuse disease in the distal left anterior descending artery with moderate disease in the right coronary artery. Upon examination, patient is sitting up in bed. He is feeling well. Blood pressure is poorly controlled with a systolic blood pressure of 160s to 180s and diastolic of 80s to 110s. Currently on Catapres patch 0.3 mg, losartan 100 mg by mouth daily and metoprolol succinate 2 mg by mouth twice a day. He's been intolerant to Norvasc in the past. Objective - Vital Signs Vital signs: Vital Signs Temp 97 F L 11/30/17 08:00 Pulse 75 11/30/17 11:11 Resp 18 11/30/17 11:11 BP 158/107 11/30/17 11:11 Pulse Ox 94 L 11/30/17 11:11 Intake & Output 11/29/17 11/30/17 11/30/17 18:59 06:59 18:59 Intake Total 960.333 490 146 Output Total 800 Balance 160.333 490 146 Weight 157.9 kg 156.1 kg Intake: IV 660 10 10 0.9 20 10 10 Sodium Chloride 0.9% 1, 500 000 ml @ 100 mls/hr IV . Q10H [facility]BI Rx#:[id number] Intake, IV Titration 182.333 Amount Heparin Sod,Pork in 0.45% 182.333 NaCl 25,000 unit In 0.45 % NaCl 1 500ml.bag @ 6. 999 UNITS/KG/HR 20 mls/hr IV .Q24H [facility] Rx#: [id number] Oral 118 480 136 Output: Urine 800 Other: Voiding Method Urinal Urinal # Voids 4 1 - Exam PHYSICAL EXAMINATION: HEENT: Head is atraumatic, normocephalic. Pupils equal, round. Neck is supple. There is no elevated jugular venous pressure. HEART EXAMINATION: Heart sounds regular, S1 and S2 normal. No murmur or gallop heard. CHEST EXAMINATION: Lungs are clear to auscultation and precussion. No chest wall tenderness is noted on palpation or with deep breathing. ABDOMEN: Soft, nontender. Bowel sounds are heard. No organomegaly noted. EXTREMITIES: 2+ peripheral pulses with evidence of 1+ peripheral edema and no calf tenderness noted. Right femoral puncture site soft without ecchymosis or hematoma.. NEUROLOGIC patient is awake, alert and oriented x3. . - Labs CBC & Chem 7: 11/30/17 05:55 11/30/17 05:55 Labs: Abnormal Lab Results - Last 24 Hours (Table) 11/29/17 11/30/17 Range/Units 14:17 05:55 APTT 37.1 H (22.0-30.0) sec Chloride 108 H (98-107) mmol/L Assessment and Plan Assessment: #1 non-ST elevation NM #2 status post stenting of the distal second OM #3 uncontrolled hypertension Plan: From cardiology's perspective, since patient is intolerant of Norvasc, we will add hydralazine 50 mg by mouth 3 times a day. We anticipate patient to be discharged home tomorrow. We will continue to follow the patient provide further recommendations accordingly. The above dictated assessment and findings were discussed with signing physician. The impression and plan of care have been directed as dictated. Elisabeth Ramirez, Nurse Practitioner, acting as scribe for signing physician.
--- NOTE | 2017-11-30 16:29 | PN ---
PROGRESS NOTE DATE OF SERVICE: 11/30/17 PRESENTING COMPLAINT: Chest pain. INTERVAL HISTORY: This patient presented with acute CT with successful stenting. Feeling better. Has been up in the hallway. No chest pain or shortness of breath. The patient's daughter is visiting. REVIEW OF SYSTEMS: Done for constitutional, cardiovascular, GI, pulmonary; relevant findings as above. CURRENT MEDICATIONS: Reviewed that include aspirin and Plavix. EXAMINATION: Temp 97, pulse 35, respiration 18, blood pressure 158/107, pulse ox 94% on room air. GENERAL APPEARANCE: Sitting up edge of bed, comfortable. EYES: Pupils equal. Conjunctivae normal. HEENT: External appearance of nose and ears normal. Oral cavity normal. NECK: JVD not raised. Mass not palpable. RESPIRATORY: Effort normal. Lungs fair entry. CARDIOVASCULAR: First and second sounds, no edema. ABDOMEN: Soft, nontender. Liver and spleen not palpable. PSYCHIATRY: Alert and oriented x3. Mood and affect normal. INVESTIGATIONS: Potassium 3.5. ASSESSMENT: 1. Acute non ST elevation myocardial infarction with successful stenting of the 2nd obtuse marginal branch. 2. Coronary artery with also prior history of stents. 3. Morbid obesity, BMI 41.3. 4. Chronic congestive heart failure from diastolic dysfunction from underlying ischemic heart disease. 5. Essential hypertension with urgency. 6. Primary osteoarthritis. 7. BPH. 8. Hypertensive heart disease. PLAN: Care was discussed with the patient. Questions were answered. Hydralazine 50 mg 3 times a day was added. The patient did have a 2-D echocardiogram yesterday that showed the EF of 50-55 percent. MMODL / IJN: [id number] /
[2017-11-30] MEDS: ATORVASTATIN 40 MG TAB PO SCH (21:23)
[2017-11-30] MEDS: TAMSULOSIN 0.4 MG CAP.ER.24H PO SCH (21:23)
[2017-12-01 07:39] LABS: Platelet Count 263 k/uL (150-450)
[2017-12-01] MEDS: hydrALAZINE HCL 50 MG TAB PO SCH (08:45)
[2017-12-01] MEDS: TERBINAFINE 250 MG TAB PO SCH (08:45)
[2017-12-01] MEDS: ASPIRIN 81 MG PO SCH (08:45)
[2017-12-01] MEDS: POTASSIUM CHLORIDE ER 20 MEQ TAB.ER PO SCH (08:45)
[2017-12-01] MEDS: LOSARTAN 50 MG TAB PO SCH (08:45)
[2017-12-01] MEDS: CLOPIDOGREL 75 MG TAB PO SCH (08:45)
[2017-12-01] MEDS: FUROSEMIDE 20 MG TAB PO SCH (08:46)
[2017-12-01] MEDS: METOPROLOL SUCCINATE (ER) 50 MG TAB.ER.24H PO SCH (08:46)
[2017-12-01] MEDS: INDAPAMIDE 2.5 MG TAB PO SCH (08:47)
[2017-12-01] MEDS ORDERED: ANASTROZOLE 1 MG TAB PO SCH (09:00)
[2017-12-01] MEDS ORDERED: TESTOSTERONE CYPIONATE 200 MG/ML 1ML VIAL IM SCH (09:00)
[2017-12-01] MEDS ORDERED: cloNIDine 0.3 MG/24HR PATCH TRANSDERM SCH (09:00)
[2017-12-01 09:36] VITALS: RESP 16
[2017-12-01 11:32] VITALS: PULSE 60; TEMP 97.6
--- NOTE | 2017-12-01 11:52 | P.PN ---
Subjective Progress Note Date: 12/01/17 This is a pleasant 62-year-old gentleman with known history of CAD, status post percutaneous revascularization of the circumflex and LAD in March of this year. He presented with symptoms of angina and evidence consistent with non-ST segment elevation, ST segment depression on the lateral precordial leads. In view of that he was recommended to undergo cardiac catheterization. Cardiac catheterization revealed critical stenosis in the distal second OM branch which is a new lesion compared to March 2017, pain some of the circumflex and LAD, diffuse disease in the distal left anterior descending artery with moderate disease in the right coronary artery. Upon examination, patient is sitting up in bed. He is feeling well. Hemodynamically stable. Denies any chest discomfort. Patient will be discharged home later today. He will follow-up with Dr. Aguillon in the office. Objective - Vital Signs Vital signs: Vital Signs Temp 97.6 F 12/01/17 11:30 Pulse 60 12/01/17 11:30 Resp 16 12/01/17 11:30 BP 174/103 12/01/17 11:30 Pulse Ox 96 12/01/17 11:30 Intake & Output 11/30/17 12/01/17 12/01/17 18:59 06:59 18:59 Intake Total 686 490 240 Output Total 240 Balance 686 490 0 Weight 154.4 kg Intake: IV 20 10 0.9 20 10 Oral 666 480 240 Output: Urine 240 Other: Voiding Method Toilet # Voids 1 3 - Exam PHYSICAL EXAMINATION: GENERAL: 62-year-old gentleman in no acute distress at the time of my examination HEENT: Head is atraumatic, normocephalic. Pupils equal, round. Sclera anicteric. Conjunctiva are clear. Mucous membranes of the mouth are moist. Neck is supple. There is no elevated jugular venous pressure.No carotid bruit is heard. HEART EXAMINATION: Heart S1, S2 normal. No murmur or gallop heard. CHEST EXAMINATION: Lungs are clear to auscultation and precussion. No chest wall tenderness is noted on palpation or with deep breathing. ABDOMEN: Soft, nontender. Bowel sounds are heard. No organomegaly noted. EXTREMITIES: 2+ peripheral pulses with no evidence of peripheral edema and no calf tenderness noted. NEUROLOGIC patient is awake, alert and oriented X3. . - Labs CBC & Chem 7: 12/01/17 06:55 11/30/17 05:55 Assessment and Plan Plan: Assessment and plan #1 non-ST elevation myocardial infarction, status post successful stenting of the second obtuse marginal branch #2 mL with prior history of PCI #3 hypertension 4 hyperlipidemia Plan From cardiology's perspective, patient may be able to be discharged home today. We'll make him a follow-up appointment to see Dr. Aguillon in the office on Friday. Patient will be discharged home on aspirin 81 mg daily, Lipitor 40 mg daily, Plavix 75 mg daily, clonidine patch, Lasix 20 mg daily, hydralazine 50 mg one tablet by mouth 3 times a day, metoprolol 50 mg one tablet by mouth twice a day and sublingual nitroglycerin as needed for chest pain.
[2017-12-01] MEDS ORDERED: ERGOCALCIFEROL 50,000 UNIT CAP PO SCH (12:00)
[2017-12-01 12:48] VITALS: BP 138/90
--- NOTE | 2017-12-02 00:10 | DS ---
DISCHARGE SUMMARY DATE OF ADMISSION: 11/28/2017 DATE OF DISCHARGE: 12/01/2017. FINAL DIAGNOSES: 1. Acute non ST myocardial infarction with successful stenting of the 2nd obtuse marginal branch. 2. Coronary artery disease with prior history of stent. 3. Morbid obesity BMI 41.3. 4. Chronic congestive heart failure from diastolic dysfunction underlying ischemic heart disease ejection fraction around 50%. 5. Essential hypertension with urgency on presentation. 6. Primary osteoarthritis. 7. Benign prostatic hypertrophy. 8. Hypertensive heart disease. HOSPITAL COURSE: This patient presented with acute TX. Had successful angioplasty and stenting as above by Dr. Aguillon. The patient's blood pressure was running high. Medications adjusted by the time of discharge. Final blood pressure is 138/90. On examination, temp 97.6, pulse 60, respiration 16, blood pressure 130/90 pulse 96% on room air. Lungs decreased breath sounds. Cardiovascular 1st and 2nd heart sounds normal. LABS: Patient LDL was 42. 2D echo showed EF of 50-55 percent. Weight loss measures were discussed with both the and . Because of acute TX, coronary artery disease, testosterone has been held for right now. The patient is to follow up with Dr. Aguillon and will discuss about the radiation and reinitiating the same. Discussion and discharge planning more than 35 minutes. Initially, I discussed test results also with Dr. Leo and both agreed to hold off the same till followup. DISCHARGE MEDICATIONS: 1. Toprol-XL 50 mg b.i.d. 2. Catapres patch 0.3 every 7 days. 3. Lasix 20 mg a day. 4. Flomax 0.4 mg q.h.s. 5. Lamisil 250 mg p.o. daily. 6. Aspirin 81 mg a day. 7. Lipitor 40 mg q.h.s. 8. Plavix 75 mg a day. 9. Antibiotics 1 mg Friday, Friday, Friday with vitamin D2 69830 units p.o. on Friday. 10.Cozaar 100 mg p.o. daily. 11.Nitrostat 0.4 sublingual q.5 p.r.n. 12.Potassium 20 mEq a day. 13.Hydralazine 50 mg p.o. t.i.d. FOLLOWUP: Follow up with Dr. Aguillon on 12/09/2017, follow up with Dr. Astudillo on 12/08/2017. The patient to hold the start to follow up with Cardiology given okay to resume the same. Copy to Dr. Aguillon and Dr. Astudillo. MMCHUNL / IJN: [id number] /
== END 2017-12-01 15:53 | disposition home or self-care (01) | DRG 247 ==
LOC: EC 19:38 → 6SEL 22:20
PROVIDERS: ADMIT Hospitalist; ATTEND Hospitalist
PROC: B211YZZ Fluoroscopy of Multiple Coronary Arteries using Other Contrast (ICD-10-PCS; 2017-11-29)
PROC: B215YZZ Fluoroscopy of Left Heart using Other Contrast (ICD-10-PCS; 2017-11-29)
PROC: 027035Z Dilation of Coronary Artery, One Artery with Two Drug-eluting Intraluminal Devices, Percutaneous Approach (ICD-10-PCS; principal; 2017-11-29 11:30)
PROC: B215YZZ Fluoroscopy of Left Heart using Other Contrast (ICD-10-PCS; 2017-11-29 11:30)
DX: I21.4 Non-ST elevation (NSTEMI) myocardial infarction (principal); Z68.41 Body mass index [BMI] 40.0-44.9, adult; I50.32 Chronic diastolic (congestive) heart failure; I11.0 Hypertensive heart disease with heart failure; E66.01 Morbid (severe) obesity due to excess calories; I25.110 Atherosclerotic heart disease of native coronary artery with unstable angina pectoris; E78.5 Hyperlipidemia, unspecified; I25.2 Old myocardial infarction; N40.0 Benign prostatic hyperplasia without lower urinary tract symptoms; R97.20 Elevated prostate specific antigen [PSA]; M17.0 Bilateral primary osteoarthritis of knee; I73.9 Peripheral vascular disease, unspecified; Z71.3 Dietary counseling and surveillance; Z79.02 Long term (current) use of antithrombotics/antiplatelets; Z79.82 Long term (current) use of aspirin; Z79.899 Other long term (current) drug therapy; Z95.5 Presence of coronary angioplasty implant and graft; Z85.828 Personal history of other malignant neoplasm of skin; Z96.652 Presence of left artificial knee joint; Z87.891 Personal history of nicotine dependence; Z88.0 Allergy status to penicillin; Z88.8 Allergy status to other drugs, medicaments and biological substances; Z80.0 Family history of malignant neoplasm of digestive organs; Z81.8 Family history of other mental and behavioral disorders
CPT/HCPCS: 36415; 71046; 80048; 80053; 80061; 82550; 82553; 83690; 83735; 84484; 85025; 85049; 85610; 85730; 93005; 93306; 93458; 94760; 96365; 96376; 99285; C1874

== ENCOUNTER 2019-08-11 12:39 | Inpatient (IN) | payer OTHER ==
--- NOTE | 2019-08-11 13:44 | ED ---
General Adult HPI - General Chief complaint: Shortness of Breath Stated complaint: SOB Time Seen by Provider: 08/11/19 13:00 Source: patient, family, RN notes reviewed, old records reviewed Mode of arrival: wheelchair Limitations: no limitations - History of Present Illness Initial comments: This is a 64-year-old male who presents emergency Department with a past medical history significant for coronary artery disease congestive heart failure diabetes and high blood pressure. Patient states over the last week he's had shortness of breath with exertion. Patient states he has taken more diuretic and it has helped the swelling but he still is exhibiting exertional dyspnea. Patient denies any chest pain or pressure. Patient denies palpation. Patient denies fever chills or cough. Patient denies headache patient denies lightheadedness dizziness or near syncopal episode. Patient states his edema in his legs currently is much improved. Patient denies any headache patient denies numbness weakness - Related Data Home Medications Medication Instructions Recorded Confirmed Metoprolol Succinate [Toprol XL] 50 mg PO BID 08/07/16 08/11/19 cloNIDine 0.3 MG/24HR PATCH 1 patch TRANSDERM TU 08/07/16 08/11/19 [Catapres-TTS] Furosemide [Lasix] 20 mg PO DAILY 03/14/17 08/11/19 Tamsulosin HCl [Flomax] 0.4 mg PO HS 03/14/17 08/11/19 Terbinafine HCl [LamISIL] 250 mg PO DAILY 03/14/17 08/11/19 Clopidogrel [Plavix] 75 mg PO DAILY 04/02/17 08/11/19 Ergocalciferol [Vitamin D2 50,000 unit PO MO 11/28/17 08/11/19 (DRISDOL)] Hydrochlorothiazide [Hydrodiuril] 25 mg PO DAILY 08/11/19 08/11/19 Potassium Chloride [Klor-Con 20] 20 meq PO BID 08/11/19 08/11/19 hydrALAZINE HCL [Apresoline] 100 mg PO TID-W/MEALS 08/11/19 08/11/19 metFORMIN HCL 500 mg PO BID 08/11/19 08/11/19 Previous Rx's Medication Instructions Recorded Aspirin 81 mg PO DAILY #302 chew 03/17/17 Atorvastatin [Lipitor] 40 mg PO HS #30 tab 03/17/17 Losartan [Cozaar] 100 mg PO DAILY #30 tab 12/01/17 Nitroglycerin Sl Tabs [Nitrostat] 0.4 mg SUBLINGUAL Q5M PRN #25 tab 12/01/17 Allergies Allergy/AdvReac Type Severity Reaction Status Date / Time Penicillins Allergy Mild Unknown Verified 08/11/19 14:18 Childhood amlodipine [From Lotrel] AdvReac ITCHING/SWE Verified 08/11/19 14:18 LLING benazepril [From Lotrel] AdvReac ITCHING/SWE Verified 08/11/19 14:18 LLING Review of Systems ROS Statement: Those systems with pertinent positive or pertinent negative responses have been documented in the HPI. ROS Other: All systems not noted in ROS Statement are negative. Past Medical History Past Medical History: Coronary Artery Disease (CAD), Cancer, GI Bleed, Hypertension, Myocardial Infarction ([place]), Osteoarthritis (OA), Prostate Disorder, Vascular Disorder Additional Past Medical History / Comment(s): CURRENT BASAL CELL SKIN CANCER R EAR, PVD, ARTHRITIS IN KNEES. elevated psa level, enlarged prostate Last Myocardial Infarction Date:: 2016 History of Any Multi-Drug Resistant Organisms: None Reported Past Surgical History: Heart Catheterization With Stent, Joint Replacement, Orthopedic Surgery Additional Past Surgical History / Comment(s): PCI WITH STENT RCA ,Bilateral Elbow Surgery; Left knee Replacement; Right knee arthroscopy,basal cell cancer rt ear removed and had reconstructive sx. Past Anesthesia/Blood Transfusion Reactions: No Reported Reaction Date of Last Stent Placement:: 2017 Past Psychological History: No Psychological Hx Reported Smoking Status: Former smoker Past Alcohol Use History: Occasional Past Drug Use History: None Reported - Past Family History Father Family Medical History: Dementia Additional Family Medical History / Comment(s): FATHER IS 84 YRS OLD. Mother Family Medical History: Cancer Additional Family Medical History / Comment(s): MOTHER OF CANCER-FOUND IN LIVER-PRIMARY NEVER KNOWN. General Exam - General Exam Comments Initial Comments: GENERAL: Patient is well-developed and well-nourished. Patient is nontoxic and well- hydrated and is in mild distress. ENT: Neck is soft and supple. No significant lymphadenopathy is noted. Oropharynx is clear. Moist mucous membranes. Neck has full range of motion without eliciting any pain. EYES: The sclera were anicteric and conjunctiva were pink and moist. Extraocular movements were intact and pupils were equal round and reactive to light. Eyelids were unremarkable. PULMONARY: Unlabored respirations. Good breath sounds bilaterally. No audible rales rhonchi or wheezing was noted. CARDIOVASCULAR: There is a regular rate and rhythm without any murmurs gallops or rubs. ABDOMEN: Soft and nontender with normal bowel sounds. SKIN: Skin is clear with no lesions or rashes and otherwise unremarkable. NEUROLOGIC: Patient is alert and oriented x3. Cranial nerves II through XII are grossly intact. Motor and sensory are also intact. Normal speech, volume and content. Symmetrical smile. MUSCULOSKELETAL: Normal extremities with adequate strength and full range of motion. LYMPHATICS: No significant lymphadenopathy is noted PSYCHIATRIC: Normal psychiatric evaluation. Limitations: no limitations Course Vital Signs 08/11/19 08/11/19 08/11/19 12:45 12:47 13:47 Temperature 98.2 F Pulse Rate 93 Respiratory 18 20 18 Rate Blood Pressure 108/83 O2 Sat by Pulse 96 Oximetry 08/11/19 08/11/19 14:00 14:02 Temperature Pulse Rate 81 Respiratory 20 20 Rate Blood Pressure 125/99 O2 Sat by Pulse 96 Oximetry Medical Decision Making - Medical Decision Making EKG shows a sinus rhythm with occasional PAC at 86 bpm CO interval 270 QRS is un yeison 64 QT interval is 448 QTC is 536. Patient's EKG shows a right bundle branch block. Patient's troponin was mildly elevated. I started the patient on heparin and talk to Dr. Puga agreed to admit the patient admitted the patient wrote admitting orders and consult cardiology I continue the heparin and aspirin and Nitropaste on the floor. - Lab Data Result diagrams: 08/11/19 13:45 08/11/19 13:45 Lab Results 08/11/19 08/11/19 08/11/19 Range/Units 13:45 13:45 13:45 WBC 9.4 (3.8-10.6) k/uL RBC 5.56 (4.30-5.90) m/uL Hgb 16.5 (13.0-17.5) gm/dL Hct 50.6 (39.0-53.0) % MCV 90.9 (80.0-100.0) fL MCH 29.6 (25.0-35.0) pg MCHC 32.6 (31.0-37.0) g/dL RDW 14.6 (11.5-15.5) % Plt Count 254 (150-450) k/uL Neutrophils % 67 % Lymphocytes % 24 % Monocytes % 5 % Eosinophils % 2 % Basophils % 1 % Neutrophils # 6.3 (1.3-7.7) k/uL Lymphocytes # 2.2 (1.0-4.8) k/uL Monocytes # 0.5 (0-1.0) k/uL Eosinophils # 0.2 (0-0.7) k/uL Basophils # 0.1 (0-0.2) k/uL PT 10.3 (9.0-12.0) sec INR 1.0 (<1.2) APTT 22.4 (22.0-30.0) sec Sodium 144 (137-145) mmol/L Potassium 3.4 L (3.5-5.1) mmol/L Chloride 105 (98-107) mmol/L Carbon Dioxide 26 (22-30) mmol/L Anion Gap 13 mmol/L BUN 21 H (9-20) mg/dL Creatinine 0.92 (0.66-1.25) mg/dL Est GFR (CKD-EPI)AfAm >90 (>60 ml/min/1.73 sqM) Est GFR (CKD-EPI)NonAf 88 (>60 ml/min/1.73 sqM) Glucose 94 (74-99) mg/dL Plasma Lactic Acid Mike (0.7-2.0) mmol/L Calcium 10.4 H (8.4-10.2) mg/dL Magnesium 1.8 (1.6-2.3) mg/dL Total Bilirubin 0.8 (0.2-1.3) mg/dL AST 36 (17-59) U/L ALT 47 (4-49) U/L Alkaline Phosphatase 84 (38-126) U/L Troponin I (0.000-0.034) ng/mL NT-Pro-B Natriuret Pep pg/mL Total Protein 7.2 (6.3-8.2) g/dL Albumin 4.4 (3.5-5.0) g/dL 08/11/19 08/11/19 08/11/19 Range/Units 13:45 13:45 13:45 WBC (3.8-10.6) k/uL RBC (4.30-5.90) m/uL Hgb (13.0-17.5) gm/dL Hct (39.0-53.0) % MCV (80.0-100.0) fL MCH (25.0-35.0) pg MCHC (31.0-37.0) g/dL RDW (11.5-15.5) % Plt Count (150-450) k/uL Neutrophils % % Lymphocytes % % Monocytes % % Eosinophils % % Basophils % % Neutrophils # (1.3-7.7) k/uL Lymphocytes # (1.0-4.8) k/uL Monocytes # (0-1.0) k/uL Eosinophils # (0-0.7) k/uL Basophils # (0-0.2) k/uL PT (9.0-12.0) sec INR (<1.2) APTT (22.0-30.0) sec Sodium (137-145) mmol/L Potassium (3.5-5.1) mmol/L Chloride (98-107) mmol/L Carbon Dioxide (22-30) mmol/L Anion Gap mmol/L BUN (9-20) mg/dL Creatinine (0.66-1.25) mg/dL Est GFR (CKD-EPI)AfAm (>60 ml/min/1.73 sqM) Est GFR (CKD-EPI)NonAf (>60 ml/min/1.73 sqM) Glucose (74-99) mg/dL Plasma Lactic Acid Mike 2.3 H* (0.7-2.0) mmol/L Calcium (8.4-10.2) mg/dL Magnesium (1.6-2.3) mg/dL Total Bilirubin (0.2-1.3) mg/dL AST (17-59) U/L ALT (4-49) U/L Alkaline Phosphatase (38-126) U/L Troponin I 0.061 H* (0.000-0.034) ng/mL NT-Pro-B Natriuret Pep 125 pg/mL Total Protein (6.3-8.2) g/dL Albumin (3.5-5.0) g/dL Disposition Clinical Impression: Dyspnea, Elevated troponin Disposition: ADMITTED IP TO THIS HOSP Referrals: Bryce Astudillo MD [Primary Care Provider] - 1-2 days Time of Disposition: 15:16
[2019-08-11 14:18] LABS: Basophils # (A) 0.1 k/uL (0-0.2); Basophils % (A) 1 %; Eosinophils # (A) 0.2 k/uL (0-0.7); Eosinophils % (A) 2 %; HCT 50.6 % (39.0-53.0); HGB 16.5 gm/dL (13.0-17.5); Lymphocytes # (A) 2.2 k/uL (1.0-4.8); Lymphocytes % (A) 24 %; MCH 29.6 pg (25.0-35.0); MCHC 32.6 g/dL (31.0-37.0); MCV 90.9 fL (80.0-100.0); Mean Platelet Volume 7.4; Monocytes # (A) 0.5 k/uL (0-1.0); Monocytes % (A) 5 %; Neutrophils # (A) 6.3 k/uL (1.3-7.7); Neutrophils % (A) 67 %; Platelet Count 254 k/uL (150-450); RBC 5.56 m/uL (4.30-5.90); RDW 14.6 % (11.5-15.5); WBC 9.4 k/uL (3.8-10.6)
[2019-08-11 14:33] LABS: ALT 47 U/L (4-49); AST 36 U/L (17-59); African American GFR (CKD) >90 (>60 ml/min/1.73 sqM); Albumin 4.4 g/dL (3.5-5.0); Alkaline Phosphatase 84 U/L (38-126); Anion Gap 13 mmol/L; Blood Urea Nitrogen 21 mg/dL (9-20); Calcium 10.4 mg/dL (8.4-10.2); Carbon Dioxide 26 mmol/L (22-30); Chloride 105 mmol/L (98-107); Glucose 94 mg/dL (74-99); Magnesium 1.8 mg/dL (1.6-2.3); Non-African American GFR(CKD) 88 (>60 ml/min/1.73 sqM); Potassium 3.4 mmol/L (3.5-5.1); Sodium 144 mmol/L (137-145); Total Bilirubin 0.8 mg/dL (0.2-1.3); Total Protein 7.2 g/dL (6.3-8.2)
[2019-08-11 14:44] LABS: Partial Thromboplastin Time 22.4 sec (22.0-30.0); Prothrombin Time 10.3 sec (9.0-12.0)
--- NOTE | 2019-08-11 14:44 | XR ---
EXAMINATION TYPE: XR chest 2V DATE OF EXAM: 08/11/2019 COMPARISON: 11/20/2017 TECHNIQUE: PA and lateral views submitted. HISTORY: Difficulty breathing FINDINGS: The lungs are clear and there is no pneumothorax, pleural effusion, or focal pneumonia. No overt fa ilure. Biapical pleural thickening. Atherosclerotic change aorta. Degenerative change spine. No overt failure. IMPRESSION: 1. No acute process..
[2019-08-11] MEDS ORDERED: HEPARIN SODIUM,PORCINE 5,000 UNIT/ML 1 ML VIAL IV ONE (15:15)
[2019-08-11] MEDS ORDERED: NITROGLYCERIN SL TABS 0.4 MG TAB SUBLINGUAL PRN ×2 (15:18→20:25)
[2019-08-11] MEDS ORDERED: ASPIRIN 81 MG PO STA (15:18)
[2019-08-11] MEDS: HEPARIN SOD,PORK IN 0.45% NACL 25,000 UNIT in 0.45% NACL 1 250ML.BAG IV SCH (15:32)
[2019-08-11] MEDS ORDERED: LACTULOSE 20 GM/30 ML CUP PO PRN (20:26)
[2019-08-11] MEDS ORDERED: ALPRAZolam 0.25 MG TAB PO PRN (20:26)
[2019-08-11] MEDS ORDERED: MAGNESIUM HYDROXIDE 2,400 MG/10 ML CUP PO PRN (20:26)
[2019-08-11] MEDS ORDERED: NALOXONE 0.4 MG/ML 1 ML VIAL IV PRN (20:26)
[2019-08-11] MEDS ORDERED: CALCIUM CARBONATE 500 MG CHEWABLE PO PRN (20:26)
[2019-08-11] MEDS ORDERED: ACETAMINOPHEN TAB 325 MG TAB PO PRN (20:26)
[2019-08-11] MEDS ORDERED: MELATONIN 3 MG TABLET PO PRN (20:26)
[2019-08-11] MEDS ORDERED: MAG HYDROX/AL HYDROX/SIMETH 30 ML CUP PO PRN (20:26)
[2019-08-11] MEDS ORDERED: ONDANSETRON 4 MG/2 ML VIAL IVP PRN (20:26)
[2019-08-11] MEDS ORDERED: TEMAZEPAM 15 MG CAP PO PRN (20:26)
[2019-08-11 20:30] LABS: Glucose,Whole Blood 137 mg/dL (75-99)
[2019-08-11] MEDS: NITROGLYCERIN OINT 1 INCH/GM PACKET TOPICAL SCH (21:06)
[2019-08-11] MEDS: METOPROLOL SUCCINATE (ER) 50 MG TAB.ER.24H PO SCH (21:07)
[2019-08-11] MEDS: TAMSULOSIN 0.4 MG CAP.ER.24H PO SCH (21:07)
[2019-08-11] MEDS: POTASSIUM CHLORIDE ER 20 MEQ TAB.ER PO SCH (21:07)
[2019-08-11] MEDS: ATORVASTATIN 40 MG TAB PO SCH (21:08)
[2019-08-11] MEDS: hydrALAZINE HCL 50 MG TAB PO SCH (21:08)
--- NOTE | 2019-08-11 21:18 | P.HPIM ---
History of Present Illness H&P Date: 08/11/19 Chief Complaint: Shortness of breath History of presenting complaint: This is a very pleasant [address] Bryce Astudillo. Chronic stable medical conditions include congestive heart failure, diabetes, hypertension, osteoarthritis, BPH. Patient has known coronary artery disease with prior stenting with the latest one being back in 2018 when obtuse marginal was pool nted. Patient also in acute ND on that occasion. He shouldn't for about a week has been noticing some shortness of breath with exertion. No cough no fever or chills. Denies any obvious chest pressure. No dizziness or lightheadedness. Patient is found to have a troponin leak in the ER. Admitted for the same. Patient does follow with Dr. Aguillon. 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 Smoked for about 20 years stopped in 2005 alcohol occasionally Physical examination: VITAL SIGNS: 98.2, 93, 18, 108/83, 96% on room air GENERAL: [BMI 40, sitting up, not in distress. EYES: Pupils equal. Conjunctiva normal. HEENT: External appearance of nose and ears normal, oral cavity grossly normal. NECK: JVD not raised; masses not palpable. HEART: First and second heart sounds are normal; no edema. LUNGS: Respiratory rate normal; fair entry. ABDOMEN: Soft, nontender, liver spleen not palpable, no masses palpable. PSYCH: Alert and oriented x3; mood and affect normal. NEUROLOGICAL: Cranial nerves grossly intact; no facial asymmetry, power and sensation grossly intact MUSCULOSKELETAL: Some evidence of OA. LYMPHATICS: No lymph nodes palpable in the axilla and neck INVESTIGATIONS, reviewed in the clinical context: White count 9.4 hemoglobin 16.5 platelets 254 potassium 3.4 creatinine 0.9 to Troponin I 0.06, 0.05 EKG tracing personally reviewed by me-right bundle branch block pattern, sinus rhythm with some ST segment changes Chest x-ray film personally reviewed by me-no obvious infiltrate or venous prominence Assessment: -This is a patient with known coronary artery disease but having shortness of breath with exertion for last 1 week. Denies any obvious chest pressure though. Patient has got some EKG findings and troponin leak. Patient developed had an acute ND in the last few days. Currently chest pain-free. On IV heparin. Will most likely need a cardiac catheterization. -Coronary artery disease with prior stenting -Diabetes mellitus type 2 -Essential hypertension -Primary osteoarthritis -BPH -Obesity morbid, BMI 40 -IV heparin monitoring Plan: Home medications resumed. Patient is on aspirin and beta rebekah nitrates. Cardiology is consulted. We'll make the patient nothing by mouth after midnight except for medications for a possible cardiac catheterization. Accu-Cheks to be followed. Care was discussed with the patient. Has a patient see a dietitian for weight loss. Past Medical History Past Medical History: Coronary Artery Disease (CAD), Cancer, GI Bleed, Hypert ension, Myocardial Infarction (ND), Osteoarthritis (OA), Prostate Disorder, Vascular Disorder Additional Past Medical History / Comment(s): CURRENT BASAL CELL SKIN CANCER R EAR, PVD, ARTHRITIS IN KNEES. elevated psa level, enlarged prostate Last Myocardial Infarction Date:: 2016 History of Any Multi-Drug Resistant Organisms: None Reported Past Surgical History: Heart Catheterization With Stent, Joint Replacement, Orthopedic Surgery Additional Past Surgical History / Comment(s): PCI WITH STENT RCA ,Bilateral Elbow Surgery; Left knee Replacement; Right knee arthroscopy,basal cell cancer rt ear removed and had reconstructive sx. Past Anesthesia/Blood Transfusion Reactions: No Reported Reaction Date of Last Stent Placement:: 2017 Past Psychological History: No Psychological Hx Reported Smoking Status: Former smoker Past Alcohol Use History: Occasional Past Drug Use History: None Reported - Past Family History Father Family Medical History: Dementia Additional Family Medical History / Comment(s): FATHER IS 84 YRS OLD. Mother Family Medical History: Cancer Additional Family Medical History / Comment(s): MOTHER OF CANCER-FOUND IN LIVER-PRIMARY NEVER KNOWN. Medications and Allergies Home Medications Medication Instructions Recorded Confirmed Type Metoprolol Succinate [Toprol XL] 50 mg PO BID 08/07/16 08/11/19 History cloNIDine 0.3 MG/24HR PATCH 1 patch TRANSDERM TU 08/07/16 08/11/19 History [Catapres-TTS] Furosemide [Lasix] 20 mg PO DAILY 03/14/17 08/11/19 History Tamsulosin HCl [Flomax] 0.4 mg PO HS 03/14/17 08/11/19 History Terbinafine HCl [LamISIL] 250 mg PO DAILY 03/14/17 08/11/19 History Aspirin 81 mg PO DAILY #302 chew 03/17/17 08/11/19 Rx Atorvastatin [Lipitor] 40 mg PO HS #30 tab 03/17/17 08/11/19 Rx Clopidogrel [Plavix] 75 mg PO DAILY 04/02/17 08/11/19 History Ergocalciferol [Vitamin D2 50,000 unit PO MO 11/28/17 08/11/19 History (DRISDOL)] Losartan [Cozaar] 100 mg PO DAILY #30 tab 12/01/17 08/11/19 Rx Nitroglycerin Sl Tabs [Nitrostat] 0.4 mg SUBLINGUAL Q5M PRN #25 tab 12/01/17 08/11/19 Rx Hydrochlorothiazide [Hydrodiuril] 25 mg PO DAILY 08/11/19 08/11/19 History Potassium Chloride [Klor-Con 20] 20 meq PO BID 08/11/19 08/11/19 History hydrALAZINE HCL [Apresoline] 100 mg PO TID-W/MEALS 08/11/19 08/11/19 History metFORMIN HCL 500 mg PO BID 08/11/19 08/11/19 History Allergies Allergy/AdvReac Type Severity Reaction Status Date / Time Penicillins Allergy Mild Unknown Verified 08/11/19 14:18 Childhood amlodipine [From Lotrel] AdvReac ITCHING/SWE Verified 08/11/19 14:18 LLING benazepril [From Lotrel] AdvReac ITCHING/SWE Verified 08/11/19 14:18 LLING Physical Exam Vitals: Vital Signs Temp Pulse Resp BP Pulse Ox 08/11/19 18:46 72 20 134/83 97 08/11/19 18:00 72 20 134/83 97 08/11/19 17:00 71 20 141/100 08/11/19 16:00 73 20 147/94 97 08/11/19 15:00 20 08/11/19 14:02 20 08/11/19 14:00 81 20 125/99 96 08/11/19 13:47 18 08/11/19 12:47 20 08/11/19 12:45 98.2 F 93 18 108/83 96 Intake and Output 08/11/19 08/11/19 08/11/19 06:59 14:59 22:59 Other: Weight 152.861 kg Results CBC & Chem 7: 08/11/19 13:45 08/11/19 13:45 Labs: Abnormal Lab Results - Last 24 Hours (Table) 08/11/19 08/11/19 08/11/19 Range/Units 13:45 13:45 13:45 Potassium 3.4 L (3.5-5.1) mmol/L BUN 21 H (9-20) mg/dL POC Glucose (mg/dL) (75-99) mg/dL Plasma Lactic Acid Mike 2.3 H* (0.7-2.0) mmol/L Calcium 10.4 H (8.4-10.2) mg/dL Troponin I 0.061 H* (0.000-0.034) ng/mL 08/11/19 08/11/19 Range/Units 19:09 20:28 Potassium (3.5-5.1) mmol/L BUN (9-20) mg/dL POC Glucose (mg/dL) 137 H (75-99) mg/dL Plasma Lactic Acid Mike (0.7-2.0) mmol/L Calcium (8.4-10.2) mg/dL Troponin I 0.056 H* (0.000-0.034) ng/mL
[2019-08-12] MEDS: NITROGLYCERIN OINT 1 INCH/GM PACKET TOPICAL SCH ×3 (05:02→11:26)
[2019-08-12 05:51] LABS: Cholesterol 122 mg/dL (<200); HDL Cholesterol 41 mg/dL (40-60); LDL Cholesterol,Calculated 23 mg/dL (0-99); Triglycerides 289 mg/dL (<150)
[2019-08-12 06:15] LABS: Glucose,Whole Blood 110 mg/dL (75-99)
[2019-08-12] MEDS: hydrALAZINE HCL 50 MG TAB PO SCH ×3 (06:46→16:36)
[2019-08-12] MEDS ORDERED: SODIUM CHLORIDE 0.9% 1,000 ML in EMPTY BAG 1 BAG IV ONE (08:13)
[2019-08-12] MEDS ORDERED: ATORVASTATIN 80 MG TAB PO STA (08:13)
[2019-08-12] MEDS ORDERED: ALPRAZolam 0.25 MG TAB PO PRN (08:13)
[2019-08-12] MEDS ORDERED: ASPIRIN 325 MG TAB PO STA (08:13)
[2019-08-12] MEDS ORDERED: NITROGLYCERIN SL TABS 0.4 MG TAB SUBLINGUAL PRN (08:13)
[2019-08-12] MEDS ORDERED: ALPRAZolam 0.5 MG TAB PO PRN (08:13)
[2019-08-12] MEDS: ASPIRIN 81 MG PO SCH (08:45)
[2019-08-12] MEDS: CLOPIDOGREL 75 MG TAB PO SCH (08:54)
[2019-08-12] MEDS: LOSARTAN 50 MG TAB PO SCH (08:54)
[2019-08-12] MEDS: METOPROLOL SUCCINATE (ER) 50 MG TAB.ER.24H PO SCH ×2 (08:55→20:46)
[2019-08-12] MEDS: POTASSIUM CHLORIDE ER 20 MEQ TAB.ER PO SCH ×2 (08:56→20:46)
[2019-08-12] MEDS: TERBINAFINE 250 MG TAB PO SCH (08:56)
[2019-08-12] MEDS ORDERED: ASPIRIN 325 MG TAB PO SCH (09:00)
[2019-08-12] MEDS: HEPARIN SOD,PORK IN 0.45% NACL 25,000 UNIT in 0.45% NACL 1 250ML.BAG IV SCH (09:05)
--- NOTE | 2019-08-12 10:47 | CONS ---
CONSULTATION Mr. Chauhan is a 64-year-old male with a known history of coronary artery disease who presented with symptoms of progressive dyspnea going on for the last 2 weeks. He has a known history of coronary artery disease, has underwent cardiac catheterization in the past, first time in 2007, subsequently presented in 2018 with symptoms of chest discomfort, underwent cardiac catheterization and was found to have subtotally occluded long segment of the LAD with significant disease in the left circumflex and moderate disease in the RCA. He underwent stenting of the LAD in March of 2017. Subsequently, was readmitted to the hospital to undergo staged angioplasty and stenting of the left circumflex that was done shortly after. He has done reasonably well since that time. His breathing has been stable. He underwent repeat cardiac catheterization in November 2017 and at that time he had underwent stenting of the second obtuse marginal branch which was a new lesion compared to 2018, has diffuse disease in the distal LAD and moderate disease in the right coronary artery. His echocardiogram in November of 2017 showed ejection fraction 50%-55%. For the last couple of weeks, he has been complaining of dyspnea on exertion. He has some peripheral edema. He denies any dizziness, palpitation. He denies any tightness in the chest. He denies any clear PND nor orthopnea. His coronary risk factors are positive for hypertension, hyperlipidemia. He is diabetic, nonsmoker. MEDICATIONS: Include aspirin, Plavix 75 mg daily, Lipitor for 40 mg daily, Lasix 20 mg daily, hydrochlorothiazide 25 mg daily, Cozaar 100 mg daily, Toprol-XL 50 mg twice a day, tamsulosin, Catapres patch 0.3, hydralazine 100 mg 3 times a day. He is on metformin 500 mg twice a day. REVIEW OF SYSTEMS: RESPIRATORY SYSTEM: He had dyspnea on exertion. No recent wheezing or cough. GI SYSTEM: No recent GI bleeding, no peptic ulcer disease. SYSTEM: No dysuria or hematuria. NERVOUS SYSTEM: No stroke or seizure. PHYSICAL EXAMINATION: He is a 64-year-old male, alert, oriented, in no apparent distress. Blood pressure running in the 130/82 up to 150/100 with a heart rate in the 60s. HEAD: Normocephalic. EYES: Sclerae nonicteric. NECK: Good upstroke, no bruit, no jugular venous distension. LUNGS: Clear to auscultation. HEART: Regular rate and rhythm, S1, S2. No S3 with a systolic murmur heard at the base, no diastolic murmur, no rub. ABDOMEN: Soft, nontender. Positive bowel sounds, no organomegaly. EXTREMITIES: No edema, intact distal pulses. LAB DATA: Revealed BUN and creatinine 21 and 0.92, potassium of 3.4, hemoglobin of 16.5. Troponin 0.061, 0.056. Cholesterol 122, LDL of 23. EKG revealed a sinus mechanism, right bundle branch block, left axis deviation with occasional PACs. No acute ST- segment elevation. IMPRESSION: 1. Symptoms of progressive dyspnea and mild troponin elevation, could represent a non ST-segment elevation myocardial infarction in a patient with known history of heart disease with multiple percutaneous revascularization. 2. History of hypertension. 3. Hyperlipidemia. 4. Diabetes mellitus. RECOMMENDATION: I recommend proceeding with coronary angiography to assess his status and guide his treatment. The rationale behind the procedures, risks, and complication were discussed with the patient who is in full understanding and agreement. Thank you for this consult. Will follow with you. MMODL / IJN: [id number] /
[2019-08-12 11:29] LABS: Glucose,Whole Blood 93 mg/dL (75-99)
--- NOTE | 2019-08-12 11:46 | ECHOF ---
Referral Reason:cad MEASUREMENTS -------- HEIGHT: 190.5 cm WEIGHT: 152.0 kg BP: RVIDd: 3.4 cm (< 3.3) IVSd: 1.8 cm (0.6 - 1.1) LVIDd: 4.6 cm (3.9 - 5.3) LVPWd: 1.9 cm (0.6 - 1.1) IVSs: 1.7 cm LVIDs: 3.5 cm LVPWs: 2.6 cm Ao Diam: 4.2 cm (2.0 - 3.7) AV Cusp: 2.8 cm (1.5 - 2.6) LA Diam: 4.1 cm (2.7 - 3.8) MV EXCURSION: 10.846 mm (> 18.000) MV EF SLOPE: 50 mm/s (70 - 150) EPSS: 1.4 cm MV E Clark: 0.54 m/s MV DecT: 250 ms MV A Clrak: 0.52 m/s MV E/A Ratio: 1.04 RAP: 5.00 mmHg RVSP: 11.86 mmHg FINDINGS -------- Sinus rhythm. This was a technically difficult study with suboptimal views. The left ventricular size is normal. There is severe concentric left ventricular hypertrophy. Ove rall left ventricular systolic function is mild-moderately impaired with, an EF between 40 - 45 %. Basal inferior LV wall motion is hypokinetic. Basal inferoseptal LV wall motion is hypokinetic. Mid inferior LV wall motion is hypokinetic. Mid inferoseptal LV wall motion is hypokinetic. The right ventricle is normal in size. The left atrium is mildly dilated. The right atrial size is normal. Lumason used The aortic valve is trileaflet and appears structurally normal. The mitral valve is normal. Mild mitral regurgitation is present. The tricuspid valve appears structurally normal. Mild tricuspid regurgitation present. Right vent ricular systolic pressure is normal at < 35 mmHg. There is no pulmonic regurgitation present. The aortic root size is normal. IVC Not well visulized. There is no pericardial effusion. CONCLUSIONS -------- 1. Sinus rhythm. 2. This was a technically difficult study with suboptimal views. 3. The left ventricular size is normal. 4. There is severe concentric left ventricular hypertrophy. 5. Overall left ventricular systolic function is mild-moderately impaired with, an EF between 40 - 45 %. 6. Basal inferior LV wall motion is hypokinetic. 7. Basal inferoseptal LV wall motion is hypokinetic. 8. Mid inferior LV wall motion is hypokinetic. 9. Mid inferoseptal LV wall motion is hypokinetic. 10. The right ventricle is normal in size. 11. The left atrium is mildly dilated. 12. The right atrial size is normal. 13. Lumason used 14. The aortic valve is trileaflet and appears structurally normal. 15. The mitral valve is normal. 16. Mild mitral regurgitation is present. 17. The tricuspid valve appears structurally normal. 18. Mild tricuspid regurgitation present. 19. Right ventricular systolic pressure is normal at < 35 mmHg. 20. There is no pulmonic regurgitation present. 21. The aortic root size is normal. 22. IVC Not well visulized. 23. There is no pericardial effusion. ASSOCIATE STORE DIRECTOR: Susana Rodriguez RDCS
[2019-08-12] MEDS ORDERED: IV FLUID CONTINUATION 800 ML IV ONE (11:54)
[2019-08-12] MEDS ORDERED: fentaNYL (PF) 50 MCG/ML 2 ML AMP IV ONE (12:22)
[2019-08-12] MEDS ORDERED: LIDOCAINE 1% INJ 10MG/ML (20 ML MDV) SQ ONE (12:24)
[2019-08-12] MEDS ORDERED: IOPAMIDOL-370 125ML BTL INJ ONE (12:43)
[2019-08-12] MEDS ORDERED: RX INFO: IV CONTRAST WAS GIVEN 1 EACH MISC MISCELLANE PRN (13:11)
[2019-08-12] MEDS ORDERED: SODIUM CHLORIDE 0.9% 1,000 ML IV SCH (13:15)
--- NOTE | 2019-08-12 16:11 | CC ---
CARDIAC CATHETERIZATION REPORT Mr. Chauhan is a 64-year-old male with a known history of coronary artery disease, status post multiple percutaneous revascularizations, most recently in 2019. He presented with symptoms of dyspnea and had minimal troponin elevation. In view of that, recommendation was made regarding cardiac catheterization. The procedure, its risks and complications were discussed with the patient, who was in full understanding and agreement. PROCEDURE DESCRIPTION: Patient was brought to the greenhouse laborer in a fasting, semi-sedated state after receiving fentanyl and Benadryl and achieving a moderate conscious sedated state. Using Xylocaine anesthesia and Seldinger technique, a 6-Japanese sheath was introduced in the right femoral artery. Selective right and left coronary angiography was performed using 5-Japanese left Trip and 4 bend right Trip catheters. Multiple views were taken of the coronary arteries, including hemiaxial views. Following that, a 5-Japanese tight pigtail catheter was introduced into the left ventricle and pressures were calculated. Following that, catheter and sheath were removed. Hemostasis was obtained with deployment of an Angio-Seal. There was no immediate complication. Patient was returned to his room in stable condition. FINDINGS: LEFT MAIN: This is a short-sized vessel bifurcating into left circumflex and left anterior descending artery. Left main coronary artery has no evidence of high-grade stenosis. LEFT ANTERIOR DESCENDING ARTERY: This is a large-sized vessel reaching toward the apex with a wrap around the apex segment. The proximal segment of the LAD has an eccentric 30%. The mid stented segment is patent with no significant in-stent restenosis. There is slow flow in the small diagonal branch. That has not changed since 2019. The very distal segment in the apex has an an area of 90% stenosis, but beyond that the vessel is quite small. LEFT CIRCUMFLEX: This is a nondominant vessel giving rise to a large obtuse marginal branch. The stented segment in the obtuse marginal branch is patent. There is mild intimal restenosis of 20% to 30% without any evidence of high-grade stenosis. RIGHT CORONARY ARTERY: This is a large dominant vessel bifurcating distally into PDA and posterolateral segment and branches. The right coronary artery stented segment is patent. There is intimal disease throughout the vessel, up to 30% to 40%, without any evidence of high-grade stenosis. LEFT VENTRICULOGRAM: Left ventriculogram was not performed. HEMODYNAMICS: The left ventricular end-diastolic pressure was 14-16 mmHg. There was a 20 mm gradient across the aortic valve. CONCLUSION: 1. No evidence of restenosis at the prior stenting with no progression of disease compared with the images obtained in 2019. 2. A 20 mm gradient across the aortic valve. RECOMMENDATIONS: In view of findings and anatomy, I recommend continued medical therapy with the aggressive coronary risk modifications that have been initiated. Those findings and recommendation were discussed with the patient and his family, and they are in full understanding and agreement. Duration of procedure was 25 minutes. MMODL / IJN: [id number] /
[2019-08-12] MEDS: HYDROCHLOROTHIAZIDE 25 MG TAB PO SCH (16:36)
[2019-08-12] MEDS: FUROSEMIDE 20 MG TAB PO SCH (16:36)
[2019-08-12 16:51] LABS: Glucose,Whole Blood 140 mg/dL (75-99)
[2019-08-12 20:17] LABS: Glucose,Whole Blood 149 mg/dL (75-99)
--- NOTE | 2019-08-12 20:41 | P.PN ---
Progress Note - Text Progress Note Date: 08/12/19 Chief Complaint: Shortness of breath History of presenting complaint: This is a very pleasant [address] Bryce Astudillo. Chronic stable medical conditions include congestive heart failure, diabetes, hypertension, osteoarthritis, BPH. Patient has known coronary artery disease with prior stenting with the latest one being back in 2018 when obtuse marginal was stented. Patient also in acute VT on that occasion. He shouldn't for about a week has been noticing some shortness of breath with exertion. No cough no fever or chills. Denies any obvious chest pressure. No dizziness or lightheadedness. Patient is found to have a troponin leak in the ER. Admitted for the same. Patient does follow with Dr. Aguillon. Admitted with acute non-Q-wave VT. Started on IV heparin. Today-. The patient this morning. Pending cardiac catheterization this afternoon. No chest pain. Breathing stable. Review of systems: Was done for constitutional, cardiovascular, GI, pulmonary. relevant finding as above Active Medications Acetaminophen (Tylenol Tab) 650 mg PO Q6HR PRN PRN Reason: Mild Pain or Fever > 100.5 Al Hydroxide/Mg Hydroxide (Maalox) 15 ml PO Q6HR PRN PRN Reason: Indigestion Alprazolam (Xanax) 0.25 mg PO Q6HR PRN PRN Reason: Anxiety Alprazolam (Xanax) 0.25 mg PO Q6HR PRN PRN Reason: Mild Anxiety Alprazolam (Xanax) 0.5 mg PO Q6HR PRN PRN Reason: Moderate Anxiety Aspirin (Aspirin) 81 mg PO DAILY [facility] Last Admin: 08/12/19 08:45 Dose: Not Given Documented by: Atorvastatin Calcium (Lipitor) 40 mg PO HS [facility] Last Admin: 08/11/19 21:08 Dose: 40 mg Documented by: Calcium Carbonate/Glycine (Tums) 1,000 mg PO Q4HR PRN PRN Reason: Dyspepsia Clonidine HCl (Catapres-Tts 0.3mg Patch) 1 patch TRANSDERM [facility] [place] Clopidogrel Bisulfate (Plavix) 75 mg PO DAILY [facility] Last Admin: 08/12/19 08:54 Dose: 75 mg Documented by: Furosemide (Lasix) 20 mg PO DAILY [facility] Last Admin: 08/12/19 16:36 Dose: 20 mg Documented by: Hydralazine HCl (Apresoline) 100 mg PO TID-W/MEALS [facility] Last Admin: 08/12/19 16:36 Dose: 100 mg Documented by: Hydrochlorothiazide (Hydrodiuril) 25 mg PO DAILY [facility] Last Admin: 08/12/19 16:36 Dose: 25 mg Documented by: Lactulose (Cephulac) 20 gm PO DAILY PRN PRN Reason: Constipation Losartan Potassium (Cozaar) 100 mg PO DAILY [facility] Last Admin: 08/12/19 08:54 Dose: 100 mg Documented by: Magnesium Hydroxide (Milk Of Magnesia) 2,400 mg PO DAILY PRN PRN Reason: Constipation Melatonin (Melatonin) 3 mg PO HS PRN PRN Reason: Insomnia Metoprolol Succinate (Toprol Xl) 50 mg PO BID [facility] Last Admin: 08/12/19 08:55 Dose: 50 mg Documented by: Miscellaneous Information (Rx Info: Iv Contrast Was Given) 1 each MISCELLANE DAILY PRN PRN Reason: Per Protocol Stop: 08/14/19 13:11 Naloxone HCl (Narcan) 0.2 mg IV Q2M PRN PRN Reason: Opioid Reversal Nitroglycerin (Nitrostat) 0.4 mg SUBLINGUAL Q5M PRN PRN Reason: Chest Pain Nitroglycerin (Nitrostat) 0.4 mg SUBLINGUAL Q5M PRN PRN Reason: Chest Pain Ondansetron HCl (Zofran) 4 mg IVP Q8HR PRN PRN Reason: Nausea And Vomiting Potassium Chloride (K-Dur 20) 20 meq PO BID [facility] Last Admin: 08/12/19 08:56 Dose: 20 meq Documented by: Tamsulosin HCl (Flomax) 0.4 mg PO HS [facility] Last Admin: 08/11/19 21:07 Dose: 0.4 mg Documented by: Temazepam (Restoril) 15 mg PO HS PRN PRN Reason: Insomnia Terbinafine HCl (Lamisil) 250 mg PO DAILY [facility] Last Admin: 08/12/19 08:56 Dose: 250 mg Documented by: Physical examination: VITAL SIGNS: 98.2, 66, 16, 164/92, 95% on room air GENERAL: Laying in bed, comfortable. EYES: Pupils equal. Conjunctiva normal. HEENT: External appearance of nose and ears normal, oral cavity grossly normal. NECK: JVD not raised; masses not palpable. HEART: First and second heart sounds are normal; no edema. LUNGS: Respiratory rate normal; fair entry. ABDOMEN: Soft, nontender, liver spleen not palpable, no masses palpable. PSYCH: Alert and oriented x3; mood and affect normal. INVESTIGATIONS, reviewed in the clinical context: LDL 23 troponin I 0.054 Previous testing White count 9.4 hemoglobin 16.5 platelets 254 potassium 3.4 creatinine 0.9 to Troponin I 0.06, 0.05 EKG tracing personally reviewed by me-right bundle branch block pattern, sinus rhythm with some ST segment changes Chest x-ray film personally reviewed by me-no obvious infiltrate or venous prominence Assessment: -Acute non-Q-wave VT -Coronary artery disease with prior stenting -Diabetes mellitus type 2 -Essential hypertension -Primary osteoarthritis -BPH -Obesity morbid, BMI 40 -IV heparin monitoring -Cardiac catheterization did not show any significant stenosis-for medical management Plan: Continue current medication treatment plan. Follow with oncology.
[2019-08-12] MEDS: ATORVASTATIN 40 MG TAB PO SCH (20:46)
[2019-08-12] MEDS: TAMSULOSIN 0.4 MG CAP.ER.24H PO SCH (20:46)
[2019-08-13 06:30] LABS: African American GFR (CKD) >90 (>60 ml/min/1.73 sqM); Anion Gap 9 mmol/L; Blood Urea Nitrogen 14 mg/dL (9-20); Calcium 9.3 mg/dL (8.4-10.2); Carbon Dioxide 28 mmol/L (22-30); Chloride 103 mmol/L (98-107); Glucose 105 mg/dL (74-99); Non-African American GFR(CKD) >90 (>60 ml/min/1.73 sqM); Potassium 3.2 mmol/L (3.5-5.1); Sodium 140 mmol/L (137-145)
[2019-08-13 06:31] LABS: Glucose,Whole Blood 109 mg/dL (75-99)
[2019-08-13] MEDS: hydrALAZINE HCL 50 MG TAB PO SCH ×2 (06:33→12:43)
[2019-08-13 08:14] VITALS: TEMP 97.9
[2019-08-13] MEDS: LOSARTAN 50 MG TAB PO SCH (08:16)
[2019-08-13] MEDS: POTASSIUM CHLORIDE ER 20 MEQ TAB.ER PO SCH (08:16)
[2019-08-13] MEDS: ASPIRIN 81 MG PO SCH (08:16)
[2019-08-13] MEDS: TERBINAFINE 250 MG TAB PO SCH (08:16)
[2019-08-13] MEDS: CLOPIDOGREL 75 MG TAB PO SCH (08:16)
[2019-08-13] MEDS: HYDROCHLOROTHIAZIDE 25 MG TAB PO SCH (08:17)
[2019-08-13] MEDS: METOPROLOL SUCCINATE (ER) 50 MG TAB.ER.24H PO SCH (08:17)
[2019-08-13] MEDS: FUROSEMIDE 20 MG TAB PO SCH (08:17)
[2019-08-13] MEDS ORDERED: POTASSIUM CHLORIDE ER 20 MEQ TAB.ER PO STA (08:22)
--- NOTE | 2019-08-13 10:02 | PN ---
PROGRESS NOTE Mr. Chauhan is a 64-year-old male who presented with symptoms of chest discomfort and dyspnea, underwent a cardiac catheterization yesterday, revealed no evidence of progression of disease. He is feeling well this morning. His breathing has been stable. He denies any chest pain. He denies any dizziness, palpitation, he denies any nausea. He had an echocardiogram performed yesterday that revealed an ejection fraction of 40% to 45% with basal inferior inferoseptal wall hypokinesis as well as mid inferior wall. He has mild mitral and tricuspid regurgitation. He continues to be on aspirin once a day, Lipitor 40 mg daily, clonidine 0.3 mg patch, Plavix 75 mg daily, Lasix 20 mg daily, hydralazine 100 mg 3 times a day, hydrochlorothiazide 25 mg daily, losartan 100 mg daily, metoprolol succinate 50 mg twice a day, potassium supplement. PHYSICAL EXAMINATION: Blood pressure 146/80 with a heart rate in the 60s. LUNGS: Clear. HEART: Regular rate and rhythm, S1, S2. No S3. No rub with systolic murmur. ABDOMEN: Soft, obese, nontender. EXTREMITIES: No edema. LAB DATA: Revealed BUN and creatinine 14.8, potassium 3.2. IMPRESSION: 1. Non ST-segment elevation myocardial infarction with no evidence of progression of disease, could be related to ruptured plaque. 2. History of coronary artery disease with multivessel stenting, patent. 3. History of hypertension. 4. Hyperlipidemia. 5. Obesity. 6. Dyspnea on exertion, stable. No evidence of heart failure. RECOMMENDATION: Patient should be able to be discharged home today and follow as an outpatient. He will follow his blood pressure and depending on his progress, further recommendation will be made. MMODL / IJN: [id number] /
[2019-08-13 11:20] LABS: Glucose,Whole Blood 103 mg/dL (75-99)
[2019-08-13 12:17] VITALS: BP 151/92; PULSE 58; RESP 19
--- NOTE | 2019-08-13 21:57 | P.DS ---
Providers Date of admission: 08/11/19 15:18 Expected date of discharge: 08/13/19 Attending physician: Nils Puga Consults: 08/11/19 15:18 Consult Physician Urgent Consulting Provider: [facility] Consult Reason/Comments: Dyspnea with exertion Do you want consulting provider notified?: Yes Primary care physician: Bryce Astudillo [facility] Course: Chief Complaint: Shortness of breath History of presenting complaint: This is a very pleasant [address] Bryce Astudillo. Chronic stable medical conditions include congestive heart failure, diabetes, hypertension, osteoarthritis, BPH. Patient has known coronary artery disease with prior stenting with the latest one being back in 2018 when obtuse marginal was stented. Patient also in acute OK on that occasion. He shouldn't for about a week has been noticing some shortness of breath with exertion. No cough no fever or chills. Denies any obvious chest pressure. No dizziness or lightheadedness. Patient is found to have a troponin leak in the ER. Admitted for the same. Patient does follow with Dr. Aguillon. Admitted with acute non-Q-wave OK. Started on IV heparin. Cardiac catheterization did not show any stenosis. Medical management. Today-. Comfortable. No cardiac symptoms. Cleared by cardiology. Consultation: Dr. Aguillon from cardiology Physical examination: VITAL SIGNS: 97.9, 63, 20, 155/87, 95% room air GENERAL: Sitting up comfortable. EYES: Pupils equal. Conjunctiva normal. HEENT: External appearance of nose and ears normal, oral cavity grossly normal. NECK: JVD not raised; masses not palpable. HEART: First and second heart sounds are normal; no edema. LUNGS: Respiratory rate normal; fair entry. ABDOMEN: Soft, nontender, liver spleen not palpable, no masses palpable. PSYCH: Alert and oriented x3; mood and affect normal. INVESTIGATIONS, reviewed in the clinical context: LDL 23 troponin I 0.054 Previous testing White count 9.4 hemoglobin 16.5 platelets 254 potassium 3.4 creatinine 0.9 to Troponin I 0.06, 0.05 EKG tracing personally reviewed by me-right bundle branch block pattern, sinus rhythm with some ST segment changes Chest x-ray film personally reviewed by me-no obvious infiltrate or venous prominence Assessment: -Possible Acute non-Q-wave OK -Coronary artery disease with prior stenting -Diabetes mellitus type 2 -Essential hypertension -Primary osteoarthritis -BPH -Obesity morbid, BMI 40 -IV heparin monitoring -Cardiac catheterization did not show any significant stenosis-for medical management Disposition: Home Patient Condition at Discharge: Stable Plan - Discharge Summary Discharge Rx Participant: No New Discharge Prescriptions: Continue cloNIDine 0.3 MG/24HR PATCH [Catapres-TTS] 1 patch TRANSDERM Metoprolol Succinate [Toprol XL] 50 mg PO BID Furosemide [Lasix] 20 mg PO DAILY Terbinafine HCl [LamISIL] 250 mg PO DAILY Tamsulosin HCl [Flomax] 0.4 mg PO HS Aspirin 81 mg PO DAILY #302 chew Atorvastatin [Lipitor] 40 mg PO HS #30 tab Clopidogrel [Plavix] 75 mg PO DAILY Ergocalciferol [Vitamin D2 (DRISDOL)] 50,000 unit PO MO Losartan [Cozaar] 100 mg PO DAILY #30 tab Nitroglycerin Sl Tabs [Nitrostat] 0.4 mg SUBLINGUAL Q5M PRN #25 tab PRN Reason: Chest Pain hydrALAZINE HCL [Apresoline] 100 mg PO TID-W/MEALS Hydrochlorothiazide [Hydrodiuril] 25 mg PO DAILY metFORMIN HCL 500 mg PO BID Potassium Chloride [Klor-Con 20] 20 meq PO BID Discharge Medication List Metoprolol Succinate [Toprol XL] 50 mg PO BID 08/07/16 [History] cloNIDine 0.3 MG/24HR PATCH [Catapres-TTS] 1 patch TRANSDERM TU 08/07/16 [History] Furosemide [Lasix] 20 mg PO DAILY 03/14/17 [History] Tamsulosin HCl [Flomax] 0.4 mg PO HS 03/14/17 [History] Terbinafine HCl [LamISIL] 250 mg PO DAILY 03/14/17 [History] Aspirin 81 mg PO DAILY #302 chew 03/17/17 [Rx] Atorvastatin [Lipitor] 40 mg PO HS #30 tab 03/17/17 [Rx] Clopidogrel [Plavix] 75 mg PO DAILY 04/02/17 [History] Ergocalciferol [Vitamin D2 (DRISDOL)] 50,000 unit PO MO 11/28/17 [History] Losartan [Cozaar] 100 mg PO DAILY #30 tab 12/01/17 [Rx] Nitroglycerin Sl Tabs [Nitrostat] 0.4 mg SUBLINGUAL Q5M PRN #25 tab 12/01/17 [Rx] Hydrochlorothiazide [Hydrodiuril] 25 mg PO DAILY 08/11/19 [History] Potassium Chloride [Klor-Con 20] 20 meq PO BID 08/11/19 [History] hydrALAZINE HCL [Apresoline] 100 mg PO TID-W/MEALS 08/11/19 [History] metFORMIN HCL 500 mg PO BID 08/11/19 [History] Follow up Appointment(s)/Referral(s): Delta Aguillon MD [STAFF PHYSICIAN] - 08/19/19 4:00 pm Bryce Astudillo MD [Primary Care Provider] - 08/16/19 3:45 pm Patient Instructions/Handouts: Dyspnea (DC), Heart Catheterization (DC) Discharge Disposition: HOME SELF-CARE
--- NOTE | 2019-08-16 05:19 | CDI ---
Documentation Clarification Form Date: 08/16/2019 From: Jose Ndiaye Phone: If you have a question about this query, please contact Marina Frank, Lifestyle Consultant at [phone] between 8am and 5pm. Admit Date: 08/11/2019 Discharge Date: 08/13/2019 Patient Name: Roderick Chauhan Visit Number: [id number] ATTENTION: The Clinical Documentation Specialists (CDI) and [facility] Coding Staff appreciate your assistance in clarifying documentation. Please respond to the clarification below the line at the bottom and electronically sign. The CDI & [facility] Coding staff will review the response and follow-up if needed. Please note: Queries are made part of the Legal Health Record. If you have any questions, please contact the author of this message via ITS. Dear Nils Pratt., CHF is documented inDS as "Chronic stable medical conditions include congestive heart failure". History/Risk Factors: Hypertension, Morbid obesity, CAD. VS/Pulse OX: 08/11/19 18:46 72 20 134/83 97 BNP: 125 Echocardiogram Results:Overall left ventricular systolic function is mild- moderately impaired with, an EF between 40 - 45 %. Chest X Ray: No acute process. Treatment: : Furosemide [Lasix] 20 mg In your professional opinion, can you please clarify the type of CHF if known? Systolic Heart Failure: Chronic Diastolic Heart Failure: Chronic Unable to Determine Other, please specify Chronic CHF from systolic dysfunction EF 40-45%, POA MTDD
[2019-08-17] MEDS ORDERED: cloNIDine 0.3 MG/24HR PATCH TRANSDERM SCH (09:00)
== END 2019-08-13 13:39 | disposition home or self-care (01) | DRG 281 ==
LOC: EC 12:39 → 3SCARD 15:18
PROVIDERS: ADMIT Hospitalist; ATTEND Hospitalist
PROC: 4A023N7 Measurement of Cardiac Sampling and Pressure, Left Heart, Percutaneous Approach (ICD-10-PCS; principal; 2019-08-12 09:20)
PROC: B2111ZZ Fluoroscopy of Multiple Coronary Arteries using Low Osmolar Contrast (ICD-10-PCS; principal; 2019-08-12 09:20)
DX: I21.4 Non-ST elevation (NSTEMI) myocardial infarction (principal); Z68.41 Body mass index [BMI] 40.0-44.9, adult; I50.22 Chronic systolic (congestive) heart failure; E78.5 Hyperlipidemia, unspecified; E66.01 Morbid (severe) obesity due to excess calories; E11.51 Type 2 diabetes mellitus with diabetic peripheral angiopathy without gangrene; I25.10 Atherosclerotic heart disease of native coronary artery without angina pectoris; N40.0 Benign prostatic hyperplasia without lower urinary tract symptoms; I45.10 Unspecified right bundle-branch block; Z96.652 Presence of left artificial knee joint; I11.0 Hypertensive heart disease with heart failure; M17.0 Bilateral primary osteoarthritis of knee; Z79.02 Long term (current) use of antithrombotics/antiplatelets; Z79.82 Long term (current) use of aspirin; Z79.84 Long term (current) use of oral hypoglycemic drugs; Z79.899 Other long term (current) drug therapy; Z88.0 Allergy status to penicillin; Z88.8 Allergy status to other drugs, medicaments and biological substances; Z80.9 Family history of malignant neoplasm, unspecified; Z87.891 Personal history of nicotine dependence; Z85.828 Personal history of other malignant neoplasm of skin; Z95.5 Presence of coronary angioplasty implant and graft; I25.2 Old myocardial infarction; Z81.8 Family history of other mental and behavioral disorders
CPT/HCPCS: 36415; 71046; 80048; 80053; 80061; 83605; 83735; 83880; 84132; 84484; 85025; 85379; 85610; 85730; 93005; 93306; 93458; 96365; 96366; 96376; 99285

== ENCOUNTER → 2021-02-09 | Outpatient (CLI) | payer OTHER ==
[~2021-02-09] MED LIST: CASIRIVIMAB (REGN10933) (EUA) 600 MG, IMDEVIMAB (REGN10987) (EUA) 600 MG in SODIUM CHLO... IVPB NR; SODIUM CHLORIDE 0.9% 50 ML IVPB NR; SODIUM CHLORIDE 0.9% 500 ML 500 ML in EMPTY BAG 1 BAG IV PRN
[2021-02-09 13:36] VITALS: RESP 18; TEMP 97.8
[2021-02-09 13:58] VITALS: BP 138/89; PULSE 77
== END | disposition home or self-care (01) ==
LOC: PROCWHC3 12:55
PROVIDERS: ATTEND Nurse Practitioner Adult Health
DX: U07.1 COVID-19 (principal)
CPT/HCPCS: 96360; Q0244; M0243

== ENCOUNTER 2021-04-04 16:45 | Observation (INO) | payer OTHER, MEDICARE ==
[2021-04-04 15:55] LABS: ALT 45 U/L (4-49); AST 40 U/L (17-59); African American GFR (CKD) >90 (>60 ml/min/1.73 sqM); Albumin 4.4 g/dL (3.5-5.0); Albumin/Globulin Ratio 1.4; Alkaline Phosphatase 93 U/L (38-126); Anion Gap 11 mmol/L; Blood Urea Nitrogen 15 mg/dL (9-20); Calcium 9.9 mg/dL (8.4-10.2); Carbon Dioxide 28 mmol/L (22-30); Chloride 105 mmol/L (98-107); Globulin 3.1 g/dL; Glucose 114 mg/dL (74-99); Non-African American GFR(CKD) 88 (>60 ml/min/1.73 sqM); Potassium 3.2 mmol/L (3.5-5.1); Sodium 144 mmol/L (137-145); Total Protein 7.5 g/dL (6.3-8.2)
[2021-04-04 16:01] LABS: Basophils # (A) 0.1 k/uL (0-0.2); Basophils % (A) 1 %; Eosinophils # (A) 0.3 k/uL (0-0.7); Eosinophils % (A) 3 %; HGB 14.7 gm/dL (13.0-17.5); Lymphocytes # (A) 2.2 k/uL (1.0-4.8); Lymphocytes % (A) 18 %; MCH 30.4 pg (25.0-35.0); MCHC 33.5 g/dL (31.0-37.0); MCV 90.7 fL (80.0-100.0); Mean Platelet Volume 7.6; Monocytes # (A) 0.6 k/uL (0-1.0); Monocytes % (A) 4 %; Neutrophils # (A) 9.2 k/uL (1.3-7.7); Neutrophils % (A) 74 %; Platelet Count 306 k/uL (150-450); RBC 4.85 m/uL (4.30-5.90); WBC 12.5 k/uL (3.8-10.6)
[2021-04-04 16:21] LABS: Creatine Kinase MB 1.2 ng/mL (0.0-2.4)
[2021-04-04 16:28] LABS: Troponin I 0.052 ng/mL (0.000-0.034)
--- NOTE | 2021-04-04 16:44 | CT ---
EXAMINATION TYPE: CT angio chest DATE OF EXAM: 04/04/2021 COMPARISON: Radiographs 08/11/2019 HISTORY: 65-year-old male R06.00, shortness of breath, Dyspnea. Hx covid infection. Stat hold and poli l TECHNIQUE: Contiguous axial scanning of the chest performed with IV Contrast, patient injected with 1 00 mL of Isovue 370. Coronal/sagittal MIP reconstructions performed. CT DLP: 678.10 mGycm Automated exposure control for dose reduction was used. FINDINGS: Heart upper limits of normal in size without pericardial effusion. Three-vessel coronary artery calci fications are present and are a marker for coronary artery disease. Ascending aorta aneurysmal at 5.4 cm. Conventional arch vessel branching anatomy. Scattered mild pros tatic calcifications. Aneurysm upper descending thoracic aorta 4.1 cm. Tortuous mid to lower descendi ng thoracic aorta and mild aneurysm inferiorly at 3.1 cm. Satisfactory opacification of the pulmonary artery system. Large caliber to the main right and left p ulmonary arteries measuring 2.9 and 2.7 cm, respectively, suggesting underlying pulmonary hypertensio n. No evidence for pulmonary embolus. A few scattered nonenlarged and borderline to mildly enlarged mediastinal lymph nodes. These measure up to 1.5 cm lower right paratracheal, 1.3 cm lower left paratracheal, and 2.1 cm right hilum. Probab ly reactive/post inflammatory. Some strandy atelectasis in the lower lungs. No consolidation or pleural effusion. Visualized upper abdomen shows a 2.2 cm gallstone and mild stool burden with mild colonic diverticulo sis. 3.8 cm lipid rich right adrenal adenoma. Bones: Bulky DISH mid to lower thoracic spine. IMPRESSION: 1. NO ACUTE PULMONARY PROCESS. NO EVIDENCE FOR PULMONARY EMBOLUS. 2. CAD WITH 3 VESSEL CORONARY ARTERY CALCIFICATIONS. 3. ANEURYSMAL ASCENDING AORTA 5.4 CM AND DESCENDING THORACIC AORTA 4.1 CM. 4. ENLARGED CALIBER TO THE MAIN RIGHT AND LEFT PULMONARY ARTERIES MEASURING UP TO 2.9 CM MAY BE SEEN WITH PULMONARY ARTERIAL HYPERTENSION. 5. A FEW SCATTERED NONENLARGED AND BORDERLINE TO MILDLY ENLARGED MEDIASTINAL/RIGHT HILAR LYMPH NODES MEASURING UP TO 2.1 CM. PROBABLY REACTIVE/POST INFLAMMATORY. FOLLOW-UP CT IN 3 MONTHS TO ENSURE STABI LITY/RESOLUTION. 6. INCIDENTAL 2.2 CM GALLSTONE AND A 3.8 CM LIPID RICH RIGHT ADRENAL ADENOMA.
--- NOTE | 2021-04-04 17:13 | ED ---
General Adult HPI - General Chief complaint: Recheck/Abnormal Lab/Rx Stated complaint: Abnormal CT Time Seen by Provider: 04/04/21 17:01 Source: patient, RN notes reviewed Mode of arrival: ambulatory Limitations: no limitations - History of Present Illness Initial comments: This is a pleasant 65-year-old male with a history of coronary artery disease with previous stenting, basal cell carcinoma, congestive heart failure, gastrointestinal bleeding, hypertension, myocardial infarction. Patient presents today complaining of ongoing shortness of breath since being diagnosed with COVID-19 in January. Patient states this seems to be continuing on. Patient has seen his regular physician a few times. Patient had laboratory work plus a CT of the chest ordered today and was sent to the emergency department due to abnormal blood work. Patient denies any chest pain. He denies any increased shortness of breath aside from what he has had over the past several weeks. No headache, no fever or chills, no changes in vision or hearing, no sore throat or difficulty with speech, no neck pain, no chest pain or shortness of breath, no abdominal pain, no nausea or vomiting, no changes in urination or bowel movements, no numbness or tingling, no extremity pain, no skin rashes or lesions. - Related Data Home Medications Medication Instructions Recorded Confirmed Metoprolol Succinate [Toprol XL] 50 mg PO BID 08/07/16 04/04/21 cloNIDine 0.3 MG/24HR PATCH 1 patch TRANSDERM [place] 08/07/16 04/04/21 [Catapres-TTS] Furosemide [Lasix] 20 mg PO DAILY@1600 03/14/17 04/04/21 Tamsulosin HCl [Flomax] 0.4 mg PO HS 03/14/17 04/04/21 Clopidogrel [Plavix] 75 mg PO DAILY 04/02/17 04/04/21 Potassium Chloride [Klor-Con 20] 20 meq PO DAILY 08/11/19 04/04/21 hydrALAZINE HCL [Apresoline] 100 mg PO TID 08/11/19 04/04/21 hydroCHLOROthiazide [Hydrodiuril] 25 mg PO DAILY@0900 08/11/19 04/04/21 metFORMIN HCL 500 mg PO BID 08/11/19 04/04/21 Budesonide/Glycopyr/Formoterol 2 puff INHALATION RT-BID 04/04/21 04/04/21 [Breztri Aerosphere Inhaler] Losartan Potassium 100 mg PO DAILY 04/04/21 04/04/21 Multivitamins, Thera [Multivitamin 1 tab PO DAILY 04/04/21 04/04/21 (formulary)] Potassium Chloride [Klor-Con 20] 40 meq PO HS 04/04/21 04/04/21 Previous Rx's Medication Instructions Recorded Aspirin 81 mg PO DAILY #302 chew 03/17/17 Atorvastatin [Lipitor] 40 mg PO HS #30 tab 03/17/17 Allergies Allergy/AdvReac Type Severity Reaction Status Date / Time Penicillins Allergy Mild Unknown Verified 04/04/21 18:18 Childhood amlodipine [From Lotrel] AdvReac ITCHING/SWE Verified 04/04/21 18:18 LLING benazepril [From Lotrel] AdvReac ITCHING/SWE Verified 04/04/21 18:18 LLING Review of Systems ROS Statement: Those systems with pertinent positive or pertinent negative responses have been documented in the HPI. ROS Other: All systems not noted in ROS Statement are negative. Past Medical History Past Medical History: Coronary Artery Disease (CAD), Cancer, Heart Failure, GI Bleed, Hypertension, Myocardial Infarction ([place]), Osteoarthritis (OA), Prostate Disorder, Vascular Disorder Additional Past Medical History / Comment(s): CURRENT BASAL CELL SKIN CANCER R EAR, PVD, ARTHRITIS IN KNEES. elevated psa level, enlarged prostate Last Myocardial Infarction Date:: 2016 History of Any Multi-Drug Resistant Organisms: None Reported Past Surgical History: Heart Catheterization With Stent, Joint Replacement, Orthopedic Surgery Additional Past Surgical History / Comment(s): PCI WITH STENT RCA ,Bilateral Elbow Surgery; Left knee Replacement; Right knee arthroscopy,basal cell cancer rt ear removed and had reconstructive sx. Past Anesthesia/Blood Transfusion Reactions: No Reported Reaction Date of Last Stent Placement:: 2017 Past Psychological History: No Psychological Hx Reported Smoking Status: Never smoker Past Alcohol Use History: Occasional Past Drug Use History: None Reported - Past Family History Father Family Medical History: Dementia Additional Family Medical History / Comment(s): FATHER IS 84 YRS OLD. Mother Family Medical History: Cancer Additional Family Medical History / Comment(s): MOTHER OF CANCER-FOUND IN LIVER-PRIMARY NEVER KNOWN. General Exam Limitations: no limitations General appearance: obese Head exam: Present: atraumatic, normocephalic, normal inspection Eye exam: Present: normal appearance, PERRL, EOMI. Absent: scleral icterus, conjunctival injection, periorbital swelling ENT exam: Present: normal exam, mucous membranes moist Neck exam: Present: normal inspection. Absent: tenderness, meningismus, lymphadenopathy Respiratory exam: Present: normal lung sounds bilaterally. Absent: respiratory distress, wheezes, rales, rhonchi, stridor Cardiovascular Exam: Present: regular rate, normal rhythm, normal heart sounds. Absent: systolic murmur, diastolic murmur, rubs, gallop, clicks GI/Abdominal exam: Present: soft, normal bowel sounds. Absent: distended, tenderness, guarding, rebound, rigid Extremities exam: Present: normal inspection, full ROM, normal capillary refill. Absent: tenderness, pedal edema, joint swelling, calf tenderness Back exam: Present: normal inspection Neurological exam: Present: alert, oriented X3, CN II-XII intact Psychiatric exam: Present: normal affect, normal mood Skin exam: Present: warm, dry, intact, normal color. Absent: rash Course Vital Signs 04/04/21 04/04/21 04/04/21 16:48 17:46 18:36 Temperature 98.1 F Pulse Rate 64 98 96 Respiratory 18 18 18 Rate Blood Pressure 193/121 169/116 185/122 O2 Sat by Pulse 96 100 95 Oximetry 04/04/21 04/04/21 04/04/21 19:19 20:00 21:00 Temperature Pulse Rate 88 78 74 Respiratory 18 15 15 Rate Blood Pressure 179/122 164/113 159/85 O2 Sat by Pulse 95 96 95 Oximetry 04/05/21 00:00 Temperature Pulse Rate 76 Respiratory 16 Rate Blood Pressure 144/91 O2 Sat by Pulse Oximetry - Reevaluation(s) Reevaluation #1: 04/04/21 18:19 Medical record is reviewed Symptoms are improved here in the emergency department Patient is informed of results and questions answered Patient in no distress Noted the patient remains hypertensive. Labetalol ordered. EKG Findings - EKG Comments: EKG Findings:: EKG done at 5:06 PM and read by the ED attending physician reveals left axis deviation with a right bundle-branch block, QRS duration 162 ms. Remainder of the intervals are normal. No evidence of acute ST or T wave changes. When compared to the previous study from August 2019 there is no significant change. Medical Decision Making - Medical Decision Making Patient presents to the emergency department with ongoing shortness of breath since being diagnosed with COVID-19 in January. Patient had outpatient laboratory testing which showed an elevated troponin as well as a nonruptured ascending aortic aneurysm. Patient was sent to the ER for evaluation. Case was discussed in detail with the hospitalist physician. Patient will be admitted under observation. The case was discussed in detail with ED attending physician. Presentation, findings, treatment plan discussed in detail. Computed tomography scan shows a 5.4 cm ascending aortic aneurysm with no evidence of dissection. CT suggestive of pulmonary hypertension. No evidence of pulmonary emboli. Scattered, nonenlarged, to mildly enlarged mediastinal lymphadenopathy. Some strandy atelectasis in the lower lungs. No consolidation or effusion 2.2; gall stone noted. Mild colonic diverticulosis Patient was given aspirin and potassium in the ER. Supervising physician is Dr. Finch Patient remained hypertensive and on recheck. Systolic blood pressure of 116. 20 mg labetalol ordered. Consultation placed for cardiology and vascular surgery. - Lab Data Result diagrams: 04/04/21 15:50 04/04/21 15:31 Lab Results 04/04/21 04/04/21 04/04/21 Range/Units 15:31 15:50 15:50 WBC 12.5 H (3.8-10.6) k/uL RBC 4.85 (4.30-5.90) m/uL Hgb 14.7 (13.0-17.5) gm/dL Hct 44.0 (39.0-53.0) % MCV 90.7 (80.0-100.0) fL MCH 30.4 (25.0-35.0) pg MCHC 33.5 (31.0-37.0) g/dL RDW 15.0 (11.5-15.5) % Plt Count 306 (150-450) k/uL MPV 7.6 Neutrophils % 74 % Lymphocytes % 18 % Monocytes % 4 % Eosinophils % 3 % Basophils % 1 % Neutrophils # 9.2 H (1.3-7.7) k/uL Lymphocytes # 2.2 (1.0-4.8) k/uL Monocytes # 0.6 (0-1.0) k/uL Eosinophils # 0.3 (0-0.7) k/uL Basophils # 0.1 (0-0.2) k/uL Sodium 144 (137-145) mmol/L Potassium 3.2 L (3.5-5.1) mmol/L Chloride 105 (98-107) mmol/L Carbon Dioxide 28 (22-30) mmol/L Anion Gap 11 mmol/L BUN 15 (9-20) mg/dL Creatinine 0.91 (0.66-1.25) mg/dL Est GFR (CKD-EPI)AfAm >90 (>60 ml/min/1.73 sqM) Est GFR (CKD-EPI)NonAf 88 (>60 ml/min/1.73 sqM) Glucose 114 H (74-99) mg/dL Calcium 9.9 (8.4-10.2) mg/dL Total Bilirubin 1.0 (0.2-1.3) mg/dL AST 40 (17-59) U/L ALT 45 (4-49) U/L Alkaline Phosphatase 93 (38-126) U/L CK-MB (CK-2) (0.0-2.4) ng/mL Troponin I (0.000-0.034) ng/mL NT-Pro-B Natriuret Pep 284 pg/mL Total Protein 7.5 (6.3-8.2) g/dL Albumin 4.4 (3.5-5.0) g/dL Globulin 3.1 g/dL Albumin/Globulin Ratio 1.4 Coronavirus (PCR) (Not Detectd) 04/04/21 04/04/21 04/04/21 Range/Units 15:50 16:57 18:01 WBC (3.8-10.6) k/uL RBC (4.30-5.90) m/uL Hgb (13.0-17.5) gm/dL Hct (39.0-53.0) % MCV (80.0-100.0) fL MCH (25.0-35.0) pg MCHC (31.0-37.0) g/dL RDW (11.5-15.5) % Plt Count (150-450) k/uL MPV Neutrophils % % Lymphocytes % % Monocytes % % Eosinophils % % Basophils % % Neutrophils # (1.3-7.7) k/uL Lymphocytes # (1.0-4.8) k/uL Monocytes # (0-1.0) k/uL Eosinophils # (0-0.7) k/uL Basophils # (0-0.2) k/uL Sodium (137-145) mmol/L Potassium (3.5-5.1) mmol/L Chloride (98-107) mmol/L Carbon Dioxide (22-30) mmol/L Anion Gap mmol/L BUN (9-20) mg/dL Creatinine (0.66-1.25) mg/dL Est GFR (CKD-EPI)AfAm (>60 ml/min/1.73 sqM) Est GFR (CKD-EPI)NonAf (>60 ml/min/1.73 sqM) Glucose (74-99) mg/dL Calcium (8.4-10.2) mg/dL Total Bilirubin (0.2-1.3) mg/dL AST (17-59) U/L ALT (4-49) U/L Alkaline Phosphatase (38-126) U/L CK-MB (CK-2) 1.2 (0.0-2.4) ng/mL Troponin I 0.052 H* 0.067 H* (0.000-0.034) ng/mL NT-Pro-B Natriuret Pep pg/mL Total Protein (6.3-8.2) g/dL Albumin (3.5-5.0) g/dL Globulin g/dL Albumin/Globulin Ratio Coronavirus (PCR) Not Detected (Not Detectd) Disposition Clinical Impression: Dyspnea, Elevated troponin, Hypokalemia, Thoracic aortic aneurysm without rupture, Mediastinal lymphadenopathy, Cholelithiasis, Hypertension, poor control Disposition: ADMITTED IP TO THIS [facility] Condition: Stable Decision to Admit Reason: Admit from [facility]
[2021-04-04] MEDS ORDERED: ONDANSETRON 4 MG/2 ML VIAL IVP PRN (17:16)
[2021-04-04] MEDS ORDERED: ACETAMINOPHEN TAB 325 MG TAB PO PRN (17:16)
[2021-04-04] MEDS ORDERED: NALOXONE 0.4 MG/ML 1 ML VIAL IV PRN (17:16)
[2021-04-04] MEDS ORDERED: MORPHINE SULFATE 4 MG/ML SYRINGE IV PRN (17:16)
[2021-04-04] MEDS ORDERED: POTASSIUM CHLORIDE ER 20 MEQ TAB.ER PO STA ×2 (17:19→22:08)
[2021-04-04] MEDS ORDERED: ASPIRIN 81 MG PO STA (17:23)
[2021-04-04] MEDS ORDERED: LABETALOL 5 MG/ML VIAL MDV IVP STA (18:18)
[2021-04-04] MEDS: FAMOTIDINE 20 MG TAB PO SCH (20:09)
--- NOTE | 2021-04-04 22:10 | P.HPIM ---
History of Present Illness H&P Date: 04/04/21 The patient is a 65-year-old male with a PMH of systolic and diastolic CHF, SANJU on CPAP, COPD, type II DM, hypertension, and hyperlipidemia who presented to the emergency room with complaints of shortness of breath. The patient reports that he contracted COVID-19 in January 2021 and since then has had worsened exercise tolerance and fatigue. He also reports lower extremity edema despite use of his diuretics at home. He denied chest discomfort, orthopnea, or PND. Reports that he gets winded with even performing his ADLs at home. He denied any additional complaints. He denied fevers, weight loss, chills, nausea, vomiting, abdominal pain, diarrhea, headaches, or visual disturbances. Reports compliance with all his medications at home. EKG in the emergency room revealed a normal sinus rhythm with left axis deviation at 99 bpm. Chest CTA revealed an eccentric aortic aneurysm of 5.4 cm, findings consistent with pulmonary arterial hypertension, along with enlarged hilar and mediastinal lymph nodes. Laboratory evaluation revealed a WBC count of 12.5, potassium 3.2, troponin 0.052, proBNP 284, and coronavirus negative. Review of systems: Pertinent positives and negatives as discussed in HPI, a complete review of systems was performed and all other systems are negative. Physical examination: General: non toxic, no distress, appears at stated age, morbidly obese Derm: no unusual rashes/lesions no unusual ecchymoses, warm, dry Head: atraumatic, normocephalic, symmetric Eyes: EOMI, no lid lag, anicteric sclera, pupils equal round reactive to light ENT: Nose and ears atraumatic, no thrush, no pharyngeal erythema Neck: No thyromegaly, no cervical lymphadenopathy, trachea midline, supple Mouth: no lip lesion, mucus membranes moist Cardiovascular: S1S2 reg, no murmur, positive posterior tibial pulse bilateral, 1+ bilateral lower extremity pitting edema capillary refill less than 2 seconds Lungs: CTA bilateral, no rhonchi, no rales , no accessory muscle use Abdominal: soft, nontender to palpation, no guarding, no appreciable organomegaly, normal bowel sounds Ext: no gross muscle atrophy, muscle strength 5 out of 5 in all 4 extremities grossly, no contractures, Neuro: CN II-XI grossly intact, light touch intact all 4 extremities, finger to nose within normal limits, Psych: Alert, oriented, appropriate affect Assessment/plan Decreased exercise tolerance, likely multifactorial, possibly due to pulmonary hypertension post-COVID versus CHF -Cardiology consulted -Patient may benefit from direct vasodilators -Cardiac monitoring Troponin elevation, similar to baseline -Patient denying chest discomfort -Plan as per above Ascending aortic aneurysm -Cardiothoracic surgery consulted Hypokalemia -Replace and monitor Chronic conditions: Type II DM, objective sleep apnea, hyperlipidemia, hypertension -Continue with home meds -Insulin sliding scale blood glucose monitoring -Continue with home CPAP -Check A1c DVT prophylaxis -Heparin subq The patient is admitted with an anticipated less than 2 midnight stay for evaluation of SOB CODE STATUS: Full Code Discussed with: Patient Anticipated discharge date: in am Anticipated discharge place: Home Past Medical History Past Medical History: Coronary Artery Disease (CAD), Cancer, Heart Failure, GI Bleed, Hypertension, Myocardial Infarction ([place]), Osteoarthritis (OA), Prostate Disorder, Vascular Disorder Additional Past Medical History / Comment(s): CURRENT BASAL CELL SKIN CANCER R EAR, PVD, ARTHRITIS IN KNEES. elevated psa level, enlarged prostate Last Myocardial Infarction Date:: 2016 History of Any Multi-Drug Resistant Organisms: None Reported Past Surgical History: Heart Catheterization With Stent, Joint Replacement, Orthopedic Surgery Additional Past Surgical History / Comment(s): PCI WITH STENT RCA ,Bilateral Elbow Surgery; Left knee Replacement; Right knee arthroscopy,basal cell cancer rt ear removed and had reconstructive sx. Past Anesthesia/Blood Transfusion Reactions: No Reported Reaction Date of Last Stent Placement:: 2017 Past Psychological History: No Psychological Hx Reported Smoking Status: Never smoker Past Alcohol Use History: Occasional Past Drug Use History: None Reported - Past Family History Father Family Medical History: Dementia Additional Family Medical History / Comment(s): FATHER IS 84 YRS OLD. Mother Family Medical History: Cancer Additional Family Medical History / Comment(s): MOTHER OF CANCER-FOUND IN LIVER-PRIMARY NEVER KNOWN. Medications and Allergies Home Medications Medication Instructions Recorded Confirmed Type Metoprolol Succinate [Toprol XL] 50 mg PO BID 08/07/16 04/04/21 History cloNIDine 0.3 MG/24HR PATCH 1 patch TRANSDERM [place] 08/07/16 04/04/21 History [Catapres-TTS] Furosemide [Lasix] 20 mg PO DAILY@1600 03/14/17 04/04/21 History Tamsulosin HCl [Flomax] 0.4 mg PO HS 03/14/17 04/04/21 History Aspirin 81 mg PO DAILY #302 chew 03/17/17 04/04/21 Rx Atorvastatin [Lipitor] 40 mg PO HS #30 tab 03/17/17 04/04/21 Rx Clopidogrel [Plavix] 75 mg PO DAILY 04/02/17 04/04/21 History Potassium Chloride [Klor-Con 20] 20 meq PO DAILY 08/11/19 04/04/21 History hydrALAZINE HCL [Apresoline] 100 mg PO TID 08/11/19 04/04/21 History hydroCHLOROthiazide [Hydrodiuril] 25 mg PO DAILY@0900 08/11/19 04/04/21 History metFORMIN HCL 500 mg PO BID 08/11/19 04/04/21 History Budesonide/Glycopyr/Formoterol 2 puff INHALATION RT-BID 04/04/21 04/04/21 History [Breztri Aerosphere Inhaler] Losartan Potassium 100 mg PO DAILY 04/04/21 04/04/21 History Multivitamins, Thera [Multivitamin 1 tab PO DAILY 04/04/21 04/04/21 History (formulary)] Potassium Chloride [Klor-Con 20] 40 meq PO HS 04/04/21 04/04/21 History Allergies Allergy/AdvReac Type Severity Reaction Status Date / Time Penicillins Allergy Mild Unknown Verified 04/04/21 18:18 Childhood amlodipine [From Lotrel] AdvReac ITCHING/SWE Verified 04/04/21 18:18 LLING benazepril [From Lotrel] AdvReac ITCHING/SWE Verified 04/04/21 18:18 LLING Physical Exam Vitals: Vital Signs Temp Pulse Resp BP Pulse Ox 04/04/21 21:00 74 15 159/85 95 04/04/21 20:00 78 15 164/113 96 04/04/21 19:19 88 18 179/122 95 04/04/21 18:36 96 18 185/122 95 04/04/21 17:46 98 18 169/116 100 04/04/21 16:48 98.1 F 64 18 193/121 96 Intake and Output 04/04/21 04/04/21 04/04/21 06:59 14:59 22:59 Other: Weight 149.685 kg Results CBC & Chem 7: 04/04/21 15:50 04/04/21 15:31 Labs: Abnormal Lab Results - Last 24 Hours (Table) 04/04/21 04/04/21 04/04/21 Range/Units 15:31 15:50 15:50 WBC 12.5 H (3.8-10.6) k/uL Neutrophils # 9.2 H (1.3-7.7) k/uL Potassium 3.2 L (3.5-5.1) mmol/L Glucose 114 H (74-99) mg/dL Troponin I 0.052 H* (0.000-0.034) ng/mL 04/04/21 04/04/21 Range/Units 18:01 20:47 WBC (3.8-10.6) k/uL Neutrophils # (1.3-7.7) k/uL Potassium (3.5-5.1) mmol/L Glucose (74-99) mg/dL Troponin I 0.067 H* 0.065 H* (0.000-0.034) ng/mL
[2021-04-04 22:42] LABS: Glucose,Whole Blood 107 mg/dL (75-99)
[2021-04-05] MEDS: HEPARIN SODIUM,PORCINE/PF 5,000 UNIT/0.5 ML SYRINGE SQ SCH ×3 (04:21→16:10)
[2021-04-05] MEDS ORDERED: hydrALAZINE HCL 25 MG TAB PO STA (06:12)
[2021-04-05 07:58] LABS: Glucose,Whole Blood 105 mg/dL (75-99)
[2021-04-05] MEDS: INSULIN ASPART (NovoLOG) 100 UNIT/ML VIAL SQ SCH ×4 (07:58→21:48)
[2021-04-05] MEDS: LOSARTAN 50 MG TAB PO SCH (08:16)
[2021-04-05] MEDS: hydrALAZINE HCL 50 MG TAB PO SCH ×3 (08:16→21:49)
[2021-04-05] MEDS: ASPIRIN 81 MG PO SCH (08:17)
[2021-04-05] MEDS: METOPROLOL SUCCINATE (ER) 50 MG TAB.ER.24H PO SCH ×2 (08:17→21:48)
[2021-04-05] MEDS: CLOPIDOGREL 75 MG TAB PO SCH (08:17)
[2021-04-05] MEDS: FAMOTIDINE 20 MG TAB PO SCH ×2 (08:17→21:48)
[2021-04-05] MEDS: MULTIVITAMINS, THERA 1 EACH TAB PO SCH (08:17)
[2021-04-05 08:43] LABS: Basophils # (A) 0.1 k/uL (0-0.2); Basophils % (A) 1 %; Eosinophils # (A) 0.2 k/uL (0-0.7); Eosinophils % (A) 3 %; HCT 43.6 % (39.0-53.0); Lymphocytes # (A) 2.4 k/uL (1.0-4.8); Lymphocytes % (A) 27 %; MCH 29.6 pg (25.0-35.0); MCHC 32.2 g/dL (31.0-37.0); MCV 91.9 fL (80.0-100.0); Mean Platelet Volume 7.4; Monocytes # (A) 0.4 k/uL (0-1.0); Monocytes % (A) 4 %; Neutrophils # (A) 5.6 k/uL (1.3-7.7); Neutrophils % (A) 63 %; Platelet Count 295 k/uL (150-450); RBC 4.74 m/uL (4.30-5.90); RDW 15.6 % (11.5-15.5); WBC 8.8 k/uL (3.8-10.6)
[2021-04-05 08:54] LABS: ALT 40 U/L (4-49); AST 37 U/L (17-59); African American GFR (CKD) >90 (>60 ml/min/1.73 sqM); Albumin 3.7 g/dL (3.5-5.0); Alkaline Phosphatase 86 U/L (38-126); Anion Gap 8 mmol/L; Blood Urea Nitrogen 14 mg/dL (9-20); Calcium 9.4 mg/dL (8.4-10.2); Carbon Dioxide 25 mmol/L (22-30); Chloride 108 mmol/L (98-107); Glucose 112 mg/dL (74-99); Lipase 54 U/L (23-300); Magnesium 1.7 mg/dL (1.6-2.3); Non-African American GFR(CKD) >90 (>60 ml/min/1.73 sqM); Phosphorus 3.6 mg/dL (2.5-4.5); Potassium 3.4 mmol/L (3.5-5.1); Sodium 141 mmol/L (137-145); Total Bilirubin 1.2 mg/dL (0.2-1.3); Total Protein 6.4 g/dL (6.3-8.2)
[2021-04-05] MEDS ORDERED: hydroCHLOROthiazide 25 MG TAB PO SCH ×2 (09:00→16:00)
--- NOTE | 2021-04-05 09:05 | P.CRDCN ---
History of Present Illness Consult date: 04/05/21 History of present illness: The patient is a 65-year-old male with a history of hypertension, hyperlipidemia, diabetes mellitus and history of CAD [facility] being found to have mild troponin elevation. He had COVID-19 infection in January, he was vaccinated before, he received monoclonal antibodies but has continued to be dyspneic on exertion since that time. He has been feeling fatigued but has no fever or chills, his cough is better and his breathing is better overall. He was sent to the emergency room and had a troponin value that was mildly elevated and he was subsequently admitted. The patient has underwent PCI of his circumflex in 2017 as well as his LAD. Repeat cardiac catheterization in August 2019 revealed patent stent with significant disease in the very distal LAD with no progression. The patient had no symptoms of angina pectoris since his last visit to our office in 2019. He had some dizziness but no palpitation. He denies any PND or orthopnea. He has mild peripheral edema that has been chronic but stable. His CT angiogram revealed an ascending aortic aneurysm of 5.4 cm there was noted in the past. His coronary risk factors are positive for hypertension, hyperlipidemia and diabetes. He is trying to adjust his eating habits. His blood pressure has been difficult to control in the past. His prior workup showed an ejection fraction of 50%. He has no documented history of malignant arrhythmia. His EKG showed sinus mechanism with right bundle branch block and left axis deviation. His CT scan of the chest showed an ascending aortic aneurysm of 5.4. He had evidence of gallstones. He had coronary artery calcification. His troponins 0.052, 0.067 and 0.065 with a NT proBNP 284. The patient had mild elevation of the troponin in the past with no evidence of progression of disease by cardiac catheterization Review of system Respiratory: The patient is complaining of progressive dyspnea since his infection in January with mild improvement recently. GI: No nausea, vomiting. No history of peptic ulcer disease. No recent GI bleed. : No hematuria or dysuria. Nervous System: No stroke or seizure. The patient is a 65-year-old male, alert and oriented in no apparent distress. Blood pressure running in the 140-190 with a diastolic in 110 in sinus mechanism Head: Normocephalic. Eyes: Sclerae nonicteric. Neck: Good carotid upstroke, no bruit, no jugular venous distention. Lungs: Clear to auscultation. Heart: Regular rate and rhythm, S1-S2, no S3, no murmur or rub. Abdomen: Soft nontender, positive bowel sounds no organomegaly. Extremities: Trace to 1+, intact distal pulse Impression: 1. [ Dyspnea on exertion, no evidence of CHF, post COVID-19 infection] 2. [ Mild troponin elevation with no evidence of acute ischemic event. Patient has no symptoms of angina pectoris and had prior similar elevation of the troponin with no evidence of progression of disease on cardiac catheterization] 3. [ Ascending aortic aneurysm, noted in the past] 4. [ Hypertension, uncontrolled] 5. [ Hyperlipidemia 6. Diabetes mellitus Plan: 1. [ Resume home medications] 2. [ Obtain an echocardiogram with Doppler] 3. [ No indication for heparin or coronary angiography at this time] 4. [ Follow his ascending aortic aneurysm as an outpatient] 5. [ Depending on his progress further recommendations will be made. Thank you for this consult we will follow with you.] ] Past Medical History Past Medical History: Coronary Artery Disease (CAD), Cancer, Heart Failure, GI Bleed, Hypertension, Myocardial Infarction ([place]), Osteoarthritis (OA), Prostate Disorder, Vascular Disorder Additional Past Medical History / Comment(s): CURRENT BASAL CELL SKIN CANCER R EAR, PVD, ARTHRITIS IN KNEES. elevated psa level, enlarged prostate Last Myocardial Infarction Date:: 2016 History of Any Multi-Drug Resistant Organisms: None Reported Past Surgical History: Heart Catheterization With Stent, Joint Replacement, Orthopedic Surgery Additional Past Surgical History / Comment(s): PCI WITH STENT RCA ,Bilateral Elb ow Surgery; Left knee Replacement; Right knee arthroscopy,basal cell cancer rt ear removed and had reconstructive sx. Past Anesthesia/Blood Transfusion Reactions: No Reported Reaction Date of Last Stent Placement:: 2017 Past Psychological History: No Psychological Hx Reported Smoking Status: Never smoker Past Alcohol Use History: Occasional Past Drug Use History: None Reported - Past Family History Father Family Medical History: Dementia Additional Family Medical History / Comment(s): FATHER IS 84 YRS OLD. Mother Family Medical History: Cancer Additional Family Medical History / Comment(s): MOTHER OF CANCER-FOUND IN LIVER-PRIMARY NEVER KNOWN. Medications and Allergies Home Medications Medication Instructions Recorded Confirmed Type Metoprolol Succinate [Toprol XL] 50 mg PO BID 08/07/16 04/04/21 History cloNIDine 0.3 MG/24HR PATCH 1 patch TRANSDERM [place] 08/07/16 04/04/21 History [Catapres-TTS] Furosemide [Lasix] 20 mg PO DAILY@1600 03/14/17 04/04/21 History Tamsulosin HCl [Flomax] 0.4 mg PO HS 03/14/17 04/04/21 History Aspirin 81 mg PO DAILY #302 chew 03/17/17 04/04/21 Rx Atorvastatin [Lipitor] 40 mg PO HS #30 tab 03/17/17 04/04/21 Rx Clopidogrel [Plavix] 75 mg PO DAILY 04/02/17 04/04/21 History Potassium Chloride [Klor-Con 20] 20 meq PO DAILY 08/11/19 04/04/21 History hydrALAZINE HCL [Apresoline] 100 mg PO TID 08/11/19 04/04/21 History hydroCHLOROthiazide [Hydrodiuril] 25 mg PO DAILY@0900 08/11/19 04/04/21 History metFORMIN HCL 500 mg PO BID 08/11/19 04/04/21 History Budesonide/Glycopyr/Formoterol 2 puff INHALATION RT-BID 04/04/21 04/04/21 History [Breztri Aerosphere Inhaler] Losartan Potassium 100 mg PO DAILY 04/04/21 04/04/21 History Multivitamins, Thera [Multivitamin 1 tab PO DAILY 04/04/21 04/04/21 History (formulary)] Potassium Chloride [Klor-Con 20] 40 meq PO HS 04/04/21 04/04/21 History Allergies Allergy/AdvReac Type Severity Reaction Status Date / Time Penicillins Allergy Mild Unknown Verified 04/04/21 18:18 Childhood amlodipine [From Lotrel] AdvReac ITCHING/SWE Verified 04/04/21 18:18 LLING benazepril [From Lotrel] AdvReac ITCHING/SWE Verified 04/04/21 18:18 LLING Physical Exam Vitals: Vital Signs Temp Pulse Resp BP Pulse Ox 04/05/21 08:25 75 18 196/113 97 04/05/21 07:29 75 18 162/94 04/05/21 06:00 98.4 F 78 16 193/121 99 04/05/21 04:00 98.5 F 70 15 184/112 99 04/05/21 00:00 76 16 144/91 96 04/04/21 21:00 74 15 159/85 95 04/04/21 20:00 78 15 164/113 96 04/04/21 19:19 88 18 179/122 95 04/04/21 18:36 96 18 185/122 95 04/04/21 17:46 98 18 169/116 100 04/04/21 16:48 98.1 F 64 18 193/121 96 Intake and Output 04/04/21 04/05/21 04/05/21 22:59 06:59 14:59 Other: Weight 149.685 kg Results 04/05/21 08:16 04/05/21 08:16 Cardiac Enzymes 04/04/21 04/04/21 04/04/21 Range/Units 15:31 15:50 18:01 AST 40 (17-59) U/L CK-MB (CK-2) 1.2 (0.0-2.4) ng/mL Troponin I 0.052 H* 0.067 H* (0.000-0.034) ng/mL 04/04/21 04/05/21 Range/Units 20:47 08:16 AST 37 (17-59) U/L CK-MB (CK-2) (0.0-2.4) ng/mL Troponin I 0.065 H* (0.000-0.034) ng/mL CBC 04/04/21 04/05/21 Range/Units 15:50 08:16 WBC 12.5 H 8.8 (3.8-10.6) k/uL RBC 4.85 4.74 (4.30-5.90) m/uL Hgb 14.7 14.0 (13.0-17.5) gm/dL Hct 44.0 43.6 (39.0-53.0) % Plt Count 306 295 (150-450) k/uL Comprehensive Metabolic Panel 04/04/21 04/05/21 Range/Units 15:31 08:16 Sodium 144 141 (137-145) mmol/L Potassium 3.2 L 3.4 L (3.5-5.1) mmol/L Chloride 105 108 H (98-107) mmol/L Carbon Dioxide 28 25 (22-30) mmol/L BUN 15 14 (9-20) mg/dL Creatinine 0.91 0.76 (0.66-1.25) mg/dL Glucose 114 H 112 H (74-99) mg/dL Calcium 9.9 9.4 (8.4-10.2) mg/dL AST 40 37 (17-59) U/L ALT 45 40 (4-49) U/L Alkaline Phosphatase 93 86 (38-126) U/L Total Protein 7.5 6.4 (6.3-8.2) g/dL Albumin 4.4 3.7 (3.5-5.0) g/dL Current Medications Generic Name Dose Route Start Last Admin Trade Name Freq PRN Reason Stop Dose Admin Acetaminophen 650 mg 04/04/21 17:16 Acetaminophen Tab 325 Mg Tab PO Q6HR PRN Mild Pain or Fever > 100.5 Aspirin 81 mg 04/05/21 09:00 04/05/21 08:17 Aspirin 81 Mg PO 81 mg DAILY [facility] Administration Atorvastatin Calcium 40 mg 04/05/21 21:00 Atorvastatin 40 Mg Tab PO HS [facility] Clopidogrel Bisulfate 75 mg 04/05/21 09:00 04/05/21 08:17 Clopidogrel 75 Mg Tab PO 75 mg DAILY [facility] Administration Famotidine 20 mg 04/04/21 21:00 04/05/21 08:17 Famotidine 20 Mg Tab PO 20 mg BID [facility] Administration Furosemide 20 mg 04/05/21 16:00 Furosemide 20 Mg Tab PO DAILY@1600 [facility] Heparin Sodium (Porcine) 5,000 unit 04/05/21 00:00 04/05/21 08:17 Heparin Sodium,Porcine/Pf 5,000 Unit/0.5 Ml Syringe SQ 5,000 unit Q8HR [facility] Administration Hydralazine HCl 100 mg 04/05/21 09:00 04/05/21 08:16 Hydralazine Hcl 50 Mg Tab PO 100 mg TID [facility] Administration Hydrochlorothiazide 25 mg 04/05/21 16:00 Hydrochlorothiazide 25 Mg Tab PO DAILY@1600 [facility] Insulin Aspart 0 unit 04/05/21 07:30 04/05/21 07:58 Insulin Aspart (Novolog) 100 Unit/Ml Vial SQ Not Given ACHS [facility] Protocol Losartan Potassium 100 mg 04/05/21 09:00 04/05/21 08:16 Losartan 50 Mg Tab PO 100 mg DAILY [facility] Administration Metoprolol Succinate 50 mg 04/05/21 09:00 04/05/21 08:17 Metoprolol Succinate (Er) 50 Mg Tab.Er.24h PO 50 mg BID [facility] Administration Morphine Sulfate 4 mg 04/04/21 17:16 Morphine Sulfate 4 Mg/Ml Syringe IV Q4HR PRN Severe Pain Multivitamins 1 each 04/05/21 09:00 04/05/21 08:17 Multivitamins, Thera 1 Each Tab PO 1 each DAILY [facility] Administration Naloxone HCl 0.2 mg 04/04/21 17:16 Naloxone 0.4 Mg/Ml 1 Ml Vial IV Q2M PRN Opioid Reversal Non-Formulary Medication 2 puff 04/05/21 08:00 Budesonide/Glycopyr/Formoterol [Breztri Aerosphere Inhaler] INHALATION RT-BID [facility] Ondansetron HCl 4 mg 04/04/21 17:16 Ondansetron 4 Mg/2 Ml Vial IVP Q8HR PRN Nausea And Vomiting Tamsulosin HCl 0.4 mg 04/05/21 21:00 Tamsulosin 0.4 Mg Cap.Er.24h PO HS [facility] Intake and Output 04/04/21 04/05/21 04/05/21 22:59 06:59 14:59 Other: Weight 149.685 kg 04/05/21 08:16 04/05/21 08:16
--- NOTE | 2021-04-05 09:36 | P.GSCN ---
History of Present Illness Consult date: 04/05/21 Reason for Consult: ascending aortic aneurysm Requesting physician: Brandy Burrell History of present illness: This is an obese 65 year old gentleman who follows on an outpatient basis with Dr. Bryce Astudillo for primary care and Dr. Aguillon for cardiology. He has a previous medical history of coronary artery disease with previous myocardial infarction status post stenting, hypertension, hyperlipidemia, chronic combined systolic and diastolic heart failure, type II diabetes, obstructive sleep apnea with home cpap use, BPH, PVD, previous tobacco dependence, and recent covid 19 infection. Apparently since his covid diagnosis in January he has continued to have shortness of breath with exertion and decreased exercise tolerance as well as lower extremity edema. He presented to [facility] for evaluation and treatment. EKG demonstrated NSR without ischemic changes. Lab work was unremarkable except WBC 12.5, K 3.2, and troponin 0.05-0.06. BNP was 284, and covid was undetected. CTA was completed which demonstrated no PE, but there was an incidental finding of 5.4 cm aneurysmal ascending aorta and evidence of pulmonary hypertension. Due to these findings consultation was placed to cardiothoracic surgery for treatment recommendations. Review of Systems Review of systems was completed and was negative except as noted in H & P - Constitutional Reports as per HPI, Reports fatigue - Cardiovascular Reports as per HPI, Reports decreased exercise tolerance, Reports dyspnea on exertion, Reports leg edema Past Medical History Past Medical History: Coronary Artery Disease (CAD), Cancer, Heart Failure, Hypertension, Myocardial Infarction (TN), Osteoarthritis (OA), Prostate Di sorder, Vascular Disorder Additional Past Medical History / Comment(s): BASAL CELL SKIN CANCER R EAR, PVD, ARTHRITIS IN KNEES. elevated psa level, enlarged prostate Last Myocardial Infarction Date:: 2016 History of Any Multi-Drug Resistant Organisms: None Reported Past Surgical History: Heart Catheterization With Stent, Joint Replacement, Orthopedic Surgery Additional Past Surgical History / Comment(s): PCI WITH STENT RCA ,Bilateral Elbow Surgery; Left knee Replacement; Right knee arthroscopy,basal cell cancer rt ear removed and had reconstructive sx. Past Anesthesia/Blood Transfusion Reactions: No Reported Reaction Date of Last Stent Placement:: 2017 Past Psychological History: No Psychological Hx Reported Smoking Status: Former smoker Past Alcohol Use History: Rare Past Drug Use History: None Reported Additional History: quit smoking in 2007, prior to that was very light smoker - Past Family History Father Family Medical History: Dementia Additional Family Medical History / Comment(s): FATHER IN 2020 OF OLD AGE/[place]HEIMERS Mother Family Medical History: Cancer Additional Family Medical History / Comment(s): MOTHER OF CANCER-FOUND IN [facility]-PRIMARY NEVER KNOWN. Medications and Allergies Home Medications Medication Instructions Recorded Confirmed Type Metoprolol Succinate [Toprol XL] 50 mg PO BID 08/07/16 04/04/21 History cloNIDine 0.3 MG/24HR PATCH 1 patch TRANSDERM [place] 08/07/16 04/04/21 History [Catapres-TTS] Furosemide [Lasix] 20 mg PO DAILY@1600 03/14/17 04/04/21 History Tamsulosin HCl [Flomax] 0.4 mg PO HS 03/14/17 04/04/21 History Aspirin 81 mg PO DAILY #302 chew 03/17/17 04/04/21 Rx Atorvastatin [Lipitor] 40 mg PO HS #30 tab 03/17/17 04/04/21 Rx Clopidogrel [Plavix] 75 mg PO DAILY 04/02/17 04/04/21 History Potassium Chloride [Klor-Con 20] 20 meq PO DAILY 08/11/19 04/04/21 History hydrALAZINE HCL [Apresoline] 100 mg PO TID 08/11/19 04/04/21 History hydroCHLOROthiazide [Hydrodiuril] 25 mg PO DAILY@0900 08/11/19 04/04/21 History metFORMIN HCL 500 mg PO BID 08/11/19 04/04/21 History Budesonide/Glycopyr/Formoterol 2 puff INHALATION RT-BID 04/04/21 04/04/21 History [Breztri Aerosphere Inhaler] Losartan Potassium 100 mg PO DAILY 04/04/21 04/04/21 History Multivitamins, Thera [Multivitamin 1 tab PO DAILY 04/04/21 04/04/21 History (formulary)] Potassium Chloride [Klor-Con 20] 40 meq PO HS 04/04/21 04/04/21 History Allergies Allergy/AdvReac Type Severity Reaction Status Date / Time Penicillins Allergy Mild Unknown Verified 04/04/21 18:18 Childhood amlodipine [From Lotrel] AdvReac ITCHING/SWE Verified 04/04/21 18:18 LLING benazepril [From Lotrel] AdvReac ITCHING/SWE Verified 04/04/21 18:18 LLING Surgical - Exam Vital Signs Temp Pulse Resp BP Pulse Ox 98.1 F 64 18 193/121 96 04/04/21 16:48 04/04/21 16:48 04/04/21 16:48 04/04/21 16:48 04/04/21 16:48 CONSTITUTIONAL: Awake and alert, appears comfortable, cooperative, well- developed, well-nourished, no pain, no acute distress EYES: Pupils equal, round, reactive to light, normal ocular movement ENT: Moist mucous membranes without oral lesions present NECK: No masses, no bruits, trachea midline RESPIRATORY: Lungs sounds clear to auscultation bilaterally. Respirations even, nonlabored. Currently on room air with oxygen saturation 97%. Strong cough. CARDIOVASCULAR: S1, S2 present. Regular rate and rhythm, sinus rhythm on telemetry. Palpable peripheral pulses bilaterally. Trace bilateral lower extremity edema present. No calf pain or tenderness noted. GASTROINTESTINAL: Abdomen soft, nontender, nondistended without masses or organomegaly noted. There is no rebound or guarding present. Active bowel sounds present 4 quadrants. GENITOURINARY: Deferred INTEGUMENTARY: Skin is warm and dry with evidence of good perfusion. NEUROLOGIC: Cranial nerves II through XII intact, normal coordination, no ob vious motor or sensory deficits, speech is normal MUSKULOSKELETAL: Able to move all extremities, strength equal bilaterally, normal posture PSYCHIATRIC: Alert and oriented to person place and time, appropriate affect, intact judgment and insight Results - Labs 04/05/21 08:16 04/05/21 08:16 Abnormal Lab Results - Last 24 Hours (Table) 04/04/21 04/04/21 04/04/21 Range/Units 15:31 15:50 15:50 WBC 12.5 H (3.8-10.6) k/uL RDW (11.5-15.5) % Neutrophils # 9.2 H (1.3-7.7) k/uL Potassium 3.2 L (3.5-5.1) mmol/L Chloride (98-107) mmol/L Glucose 114 H (74-99) mg/dL POC Glucose (mg/dL) (75-99) mg/dL Troponin I 0.052 H* (0.000-0.034) ng/mL 04/04/21 04/04/21 04/04/21 Range/Units 18:01 20:47 22:41 WBC (3.8-10.6) k/uL RDW (11.5-15.5) % Neutrophils # (1.3-7.7) k/uL Potassium (3.5-5.1) mmol/L Chloride (98-107) mmol/L Glucose (74-99) mg/dL POC Glucose (mg/dL) 107 H (75-99) mg/dL Troponin I 0.067 H* 0.065 H* (0.000-0.034) ng/mL 04/05/21 04/05/21 04/05/21 Range/Units 07:57 08:16 08:16 WBC (3.8-10.6) k/uL RDW 15.6 H (11.5-15.5) % Neutrophils # (1.3-7.7) k/uL Potassium 3.4 L (3.5-5.1) mmol/L Chloride 108 H (98-107) mmol/L Glucose 112 H (74-99) mg/dL POC Glucose (mg/dL) 105 H (75-99) mg/dL Troponin I (0.000-0.034) ng/mL Diabetes panel 04/04/21 04/05/21 Range/Units 15:31 08:16 Sodium 144 141 (137-145) mmol/L Potassium 3.2 L 3.4 L (3.5-5.1) mmol/L Chloride 105 108 H (98-107) mmol/L Carbon Dioxide 28 25 (22-30) mmol/L BUN 15 14 (9-20) mg/dL Creatinine 0.91 0.76 (0.66-1.25) mg/dL Glucose 114 H 112 H (74-99) mg/dL Calcium 9.9 9.4 (8.4-10.2) mg/dL AST 40 37 (17-59) U/L ALT 45 40 (4-49) U/L Alkaline Phosphatase 93 86 (38-126) U/L Total Protein 7.5 6.4 (6.3-8.2) g/dL Albumin 4.4 3.7 (3.5-5.0) g/dL Calcium panel 04/04/21 04/05/21 Range/Units 15:31 08:16 Calcium 9.9 9.4 (8.4-10.2) mg/dL Phosphorus 3.6 (2.5-4.5) mg/dL Albumin 4.4 3.7 (3.5-5.0) g/dL Pituitary panel 04/04/21 04/05/21 Range/Units 15:31 08:16 Sodium 144 141 (137-145) mmol/L Potassium 3.2 L 3.4 L (3.5-5.1) mmol/L Chloride 105 108 H (98-107) mmol/L Carbon Dioxide 28 25 (22-30) mmol/L BUN 15 14 (9-20) mg/dL Creatinine 0.91 0.76 (0.66-1.25) mg/dL Glucose 114 H 112 H (74-99) mg/dL Calcium 9.9 9.4 (8.4-10.2) mg/dL Adrenal panel 04/04/21 04/05/21 Range/Units 15:31 08:16 Sodium 144 141 (137-145) mmol/L Potassium 3.2 L 3.4 L (3.5-5.1) mmol/L Chloride 105 108 H (98-107) mmol/L Carbon Dioxide 28 25 (22-30) mmol/L BUN 15 14 (9-20) mg/dL Creatinine 0.91 0.76 (0.66-1.25) mg/dL Glucose 114 H 112 H (74-99) mg/dL Calcium 9.9 9.4 (8.4-10.2) mg/dL Total Bilirubin 1.0 1.2 (0.2-1.3) mg/dL AST 40 37 (17-59) U/L ALT 45 40 (4-49) U/L Alkaline Phosphatase 93 86 (38-126) U/L Total Protein 7.5 6.4 (6.3-8.2) g/dL Albumin 4.4 3.7 (3.5-5.0) g/dL - Imaging CT scan - chest: report reviewed, image reviewed EKG: image reviewed Assessment and Plan Assessment: 1. Incidental finding of 5.4 cm aneurysmal ascending aorta 2. Evidence of pulmonary hypertension 3. Dyspnea on exertion, likely multifactorial including post covid infection 4. Coronary artery disease with previous myocardial infarction status post stenting 5. Hypertension, hypertensive urgency this admission 6. Hyperlipidemia, treated 7. Chronic combined systolic and diastolic heart failure 8. Type II diabetes on Metformin 9. Obstructive sleep apnea with home cpap use 10. BPH on flomax 11. PVD 12. Previous tobacco dependence 13. Recent covid 19 infection 01/2021 Plan: The patient was seen and examined at the bedside in the emergency room sitting up on the cart in no acute distress. Chart/diagnostics were reviewed. We did order a stat echo to evaluate the aortic root. Last echocardiogram in our system was in 2027 and demonstrated no enlargement of the aortic root. The patient did say that he is aware he has had an ascending aortic aneurysm. Case discussed between Dr. Ramírez and Dr. Aguillon, Dr. Aguillon is aware of ascending aortic aneurysm in the past which he has seen on cardiac catheterizataion. Recommend better blood pressure control as the patient's blood pressure was in the 180s-190s over 100s since 4 AM. Patient will need outpatient follow up CT in 6 months. Management per primary care, cardiology. More recommendations to follow after echo has been completed. Thank you Dr. Burrell for this consult. Time with Patient: Greater than 30
--- NOTE | 2021-04-05 09:52 | ECHOF ---
Referral Reason:aortic root, ascending aortic aneurysm MEASUREMENTS -------- HEIGHT: 190.5 cm WEIGHT: 149.7 kg BP: RVIDd: 3.3 cm (< 3.3) IVSd: 1.4 cm (0.6 - 1.1) LVIDd: 4.9 cm (3.9 - 5.3) LVPWd: 1.7 cm (0.6 - 1.1) IVSs: 2.6 cm LVIDs: 2.0 cm LVPWs: 2.5 cm Ao Diam: 4.5 cm (2.0 - 3.7) AV Cusp: 2.4 cm (1.5 - 2.6) LA Diam: 3.9 cm (2.7 - 3.8) MV EXCURSION: 19.371 mm (> 18.000) MV EF SLOPE: 68 mm/s (70 - 150) EPSS: 0.9 cm MV E Clark: 0.44 m/s MV DecT: 229 ms MV A Clark: 0.31 m/s MV E/A Ratio: 1.42 RAP: 5.00 mmHg RVSP: 10.17 mmHg FINDINGS -------- This was a technically difficult study with suboptimal views. The left ventricular size is normal. There is moderate concentric left ventricular hypertrophy. O verall left ventricular systolic function is normal with, an EF between 55 - 60 %. The right ventricle is normal in size. The left atrial size is normal. The right atrial size is normal. Lumason used Aortic valve is trileaflet and is mildly thickened. The mitral valve is normal. There is trace mitral regurgitation. The tricuspid valve appears structurally normal. Trace tricuspid regurgitation present. Right yahir tricular systolic pressure is normal at < 35 mmHg. There is no pulmonic regurgitation present. The aortic root is dilated measuring 4.5 cm. IVC Not well visulized. There is no pericardial effusion. CONCLUSIONS -------- 1. The left ventricular size is normal. 2. There is moderate concentric left ventricular hypertrophy. 3. Overall left ventricular systolic function is normal with, an EF between 55 - 60 %. 4. The right ventricle is normal in size. 5. Aortic valve is trileaflet and is mildly thickened. 6. There is trace mitral regurgitation. 7. Trace tricuspid regurgitation present. 8. The aortic root is dilated measuring 4.5 cm. 9. There is no pericardial effusion. RESIZER OPERATOR: Susana Rodriguez RDCS
[2021-04-05] MEDS ORDERED: hydrALAZINE HCL 20 MG/ML 1 ML VIAL IVP PRN (10:35)
[2021-04-05] MEDS: SPIRONOLACTONE 25 MG TAB PO SCH (11:04)
[2021-04-05] MEDS: amLODIPine 5 MG TAB PO SCH (11:04)
[2021-04-05] MEDS ORDERED: POTASSIUM CHLORIDE ER 20 MEQ TAB.ER PO STA (11:30)
[2021-04-05] MEDS ORDERED: cloNIDine 0.3 MG/24HR PATCH TRANSDERM SCH (12:00)
[2021-04-05 12:08] LABS: Glucose,Whole Blood 101 mg/dL (75-99)
--- NOTE | 2021-04-05 12:30 | P.PN ---
<Elbert Ayers - Last Filed: 04/05/21 11:18> Subjective Progress Note Date: 04/05/21 Hospital course: Patient is a very pleasant 65-year-old male with a past medical history of CAD with previous MIs 3 and stents 7, chronic systolic and diastolic heart failure, COPD, obstructive sleep apnea CPAP dependent, hypertension, and hyperlipidemia. He presented to the emergency department with a chief complaint of dyspnea with exertion. Patient reports this has been progressively worsening after susan Covid 19 virus infection back in January. Patient states patient since he has continued to persistently have worsening exercise tolerance, excess fatigue, and shortness of breath with exertion. The patient underwent full evaluation in the emergency department. CTA chest negative for acute pulmonary emboli revealing CAD with 3 vessel coronary artery calcifications, ascending aortic aneurysm 5.4 cm and descending thoracic aortic aneurysm 4.1 cm, pulmonary artery hypertension with enlarged caliber to the main right and left pulmonary arteries measuring up to 2.9 cm, and scattered mediastinal/right hilar lymph nodes measuring up to 2.1 cm likely reactive/postinflammatory advise repeat CT in 3 months to ensure stability/resolution. EKG showing normal sinus rhythm at 99 bpm with a right bundle branch block other than rate unchanged from previous EKG in 2020. Tr oponins were elevated but flat at 0.052, 0.067, and 0.065. ProBNP 284. Patient was admitted under our services with consultation to cardiology and cardiothoracic surgery. Physical exam: Vital signs reviewed and stable. General: Nontoxic, no distress and appears stated age. Obese male. Derm: Skin warm and dry, normal coloration for ethnicity. Head: Atraumatic, normocephalic and symmetric. Eyes: EOMs intact, no lid lag, and anicteric sclera Mouth: no lip lesions, mucus membranes moist Cardiovascular: regular rate and rhythm with normal S1S2, no murmur, positive posterior tibial pulses bilaterally, and cap refill < 2 seconds. Lungs: Respirations even, regular, and unlabored on room air. Lungs CTA bilaterally, no rhonchi, no rales, no wheezing, and no accessory muscle usage. Abdominal: soft, nontender to palpation, no guarding, no appreciable organomegaly Ext: ROM intact. No gross muscle atrophy, no edema, no contractures Neuro: Speech clear, face symmetrical and CN II-XII grossly intact with no noted focal neuro deficits Psych: Alert and oriented to person, place, time, and situation. Appropriate and pleasant affect. Assessment and Plan of Care: Decreased exercise tolerance associated with dyspnea on exertion and excessive fatigue Pulmonary hypertension Chronic systolic and diastolic heart failure with previously known EF between 40 and 45% Elevated troponin, flat and similar to baseline Hypertensive urgency Ascending aortic aneurysm 5.4 cm Descending thoracic aortic aneurysm 4.1 cm -Cardiology following, appreciate further recommendations -Cardiothoracic surgery consulted for ascending and descending aneurysms, appreciate further recommendations -Telemetry monitoring -Monitor vital signs closely and Continue blood pressure management with clonidine patch, hydralazine, losartan, and metoprolol. Cardiology added Spironolactone, Hydrochlorothiazide and Norvasc. -Hydralazine 5 mg IVP every 6 hours as needed for systolic blood pressures greater than 160 and/or diastolic pressures greater than 90 -Echocardiogram to be completed Incidental finding on CT, Enlarged scattered mediastinal/right hilar lymph nodes -Likely reactive/postinflammatory -Recommend repeat CT in 3 months to ensure stability/resolution. Type II [id number] diabetes mellitus -Hold Glucophage and place patient on glycemic protocol with NovoLog sliding scale. Obstructive sleep apnea -Continue use of home CPAP nightly BPH Continue daily medication management with Flomax 0.4 mg nightly Dyslipidemia Continue daily medication regimen with atorvastatin 40 mg nightly CODE STATUS: Full code DVT prophylaxis: Heparin Discussed with: Patient and RN Anticipated discharge date: Clinical course to determine Anticipated discharge place: Home A total of 45 minutes was spent on the care of this complex patient more than 50% of the time was spent in counseling and care coordination. Objective - Vital Signs Vital signs: Vital Signs Temp 98.4 F 04/05/21 06:00 Pulse 75 04/05/21 08:25 Resp 18 04/05/21 08:25 BP 196/113 04/05/21 08:25 Pulse Ox 97 04/05/21 08:25 Intake & Output 04/04/21 04/05/21 04/05/21 18:59 06:59 18:59 Weight 149.685 kg - Labs CBC & Chem 7: 04/05/21 08:16 04/05/21 08:16 Labs: Abnormal Lab Results - Last 24 Hours (Table) 04/04/21 04/04/21 04/04/21 Range/Units 15:31 15:50 15:50 WBC 12.5 H (3.8-10.6) k/uL RDW (11.5-15.5) % Neutrophils # 9.2 H (1.3-7.7) k/uL Potassium 3.2 L (3.5-5.1) mmol/L Chloride (98-107) mmol/L Glucose 114 H (74-99) mg/dL POC Glucose (mg/dL) (75-99) mg/dL Troponin I 0.052 H* (0.000-0.034) ng/mL 04/04/21 04/04/21 04/04/21 Range/Units 18:01 20:47 22:41 WBC (3.8-10.6) k/uL RDW (11.5-15.5) % Neutrophils # (1.3-7.7) k/uL Potassium (3.5-5.1) mmol/L Chloride (98-107) mmol/L Glucose (74-99) mg/dL POC Glucose (mg/dL) 107 H (75-99) mg/dL Troponin I 0.067 H* 0.065 H* (0.000-0.034) ng/mL 04/05/21 04/05/21 04/05/21 Range/Units 07:57 08:16 08:16 WBC (3.8-10.6) k/uL RDW 15.6 H (11.5-15.5) % Neutrophils # (1.3-7.7) k/uL Potassium 3.4 L (3.5-5.1) mmol/L Chloride 108 H (98-107) mmol/L Glucose 112 H (74-99) mg/dL POC Glucose (mg/dL) 105 H (75-99) mg/dL Troponin I (0.000-0.034) ng/mL <Brandy Aguilar - Last Filed: 04/05/21 16:55> Subjective Elbert Ayers NP rendered care for this patient independently, reviewed the findings and plan as documented in the note above. I did not physically speak with or examine the patient on this date. Pulmonary hypertension ruled out on echo with RVSP less than 35 Consult pulmonary for continued dyspnea after COVID-19. Patient may need dedicated follow-up for a long-haul Covid symptoms. Objective - Vital Signs Vital signs: Vital Signs Temp 98.4 F 04/05/21 06:00 Pulse 72 04/05/21 16:00 Resp 16 04/05/21 13:00 BP 175/93 04/05/21 16:00 Pulse Ox 97 04/05/21 16:00 Intake & Output 04/04/21 04/05/21 04/05/21 18:59 06:59 18:59 Weight 149.685 kg 149.685 kg - Labs CBC & Chem 7: 04/05/21 08:16 04/05/21 08:16 Labs: Abnormal Lab Results - Last 24 Hours (Table) 04/04/21 04/04/21 04/04/21 Range/Units 18:01 20:47 22:41 RDW (11.5-15.5) % Potassium (3.5-5.1) mmol/L Chloride (98-107) mmol/L Glucose (74-99) mg/dL POC Glucose (mg/dL) 107 H (75-99) mg/dL Hemoglobin A1c (0.0-6.0) % Troponin I 0.067 H* 0.065 H* (0.000-0.034) ng/mL 04/05/21 04/05/21 04/05/21 Range/Units 07:57 08:16 08:16 RDW 15.6 H (11.5-15.5) % Potassium 3.4 L (3.5-5.1) mmol/L Chloride 108 H (98-107) mmol/L Glucose 112 H (74-99) mg/dL POC Glucose (mg/dL) 105 H (75-99) mg/dL Hemoglobin A1c (0.0-6.0) % Troponin I (0.000-0.034) ng/mL 04/05/21 04/05/21 04/05/21 Range/Units 08:16 12:06 13:39 RDW (11.5-15.5) % Potassium (3.5-5.1) mmol/L Chloride (98-107) mmol/L Glucose (74-99) mg/dL POC Glucose (mg/dL) 101 H 120 H (75-99) mg/dL Hemoglobin A1c 6.8 H (0.0-6.0) % Troponin I (0.000-0.034) ng/mL
[2021-04-05 13:41] LABS: Glucose,Whole Blood 120 mg/dL (75-99)
[2021-04-05] MEDS ORDERED: FUROSEMIDE 20 MG TAB PO SCH (16:00)
[2021-04-05] MEDS: NON FORMULARY DRUG (Budesonide/Glycopyr/Formoterol [Breztri Aerosphere Inhaler] 10.7 GM Gm INHALATION SCH (17:12)
[2021-04-05 17:30] LABS: Glucose,Whole Blood 123 mg/dL (75-99)
[2021-04-05 20:12] LABS: Glucose,Whole Blood 144 mg/dL (75-99)
[2021-04-05] MEDS ORDERED: ATORVASTATIN 40 MG TAB PO SCH (21:00)
[2021-04-05] MEDS ORDERED: TAMSULOSIN 0.4 MG CAP.ER.24H PO SCH (21:00)
[2021-04-06] MEDS: HEPARIN SODIUM,PORCINE/PF 5,000 UNIT/0.5 ML SYRINGE SQ SCH ×2 (01:43→09:24)
[2021-04-06 05:15] VITALS: RESP 18
[2021-04-06 06:12] LABS: Glucose,Whole Blood 124 mg/dL (75-99)
[2021-04-06] MEDS: INSULIN ASPART (NovoLOG) 100 UNIT/ML VIAL SQ SCH ×2 (06:18→11:38)
[2021-04-06] MEDS: NON FORMULARY DRUG (Budesonide/Glycopyr/Formoterol [Breztri Aerosphere Inhaler] 10.7 GM Gm INHALATION SCH ×2 (07:56→09:13)
[2021-04-06] MEDS ORDERED: amLODIPine 5 MG TAB PO SCH (09:15)
[2021-04-06] MEDS: LOSARTAN 50 MG TAB PO SCH (09:25)
[2021-04-06] MEDS: FAMOTIDINE 20 MG TAB PO SCH (09:25)
[2021-04-06] MEDS: CLOPIDOGREL 75 MG TAB PO SCH (09:25)
[2021-04-06] MEDS: hydrALAZINE HCL 50 MG TAB PO SCH (09:25)
[2021-04-06] MEDS: MULTIVITAMINS, THERA 1 EACH TAB PO SCH (09:25)
[2021-04-06] MEDS: SPIRONOLACTONE 25 MG TAB PO SCH (09:25)
[2021-04-06] MEDS: ASPIRIN 81 MG PO SCH (09:25)
[2021-04-06] MEDS: METOPROLOL SUCCINATE (ER) 50 MG TAB.ER.24H PO SCH (09:25)
[2021-04-06 09:26] LABS: African American GFR (CKD) >90 (>60 ml/min/1.73 sqM); Anion Gap 9 mmol/L; Blood Urea Nitrogen 14 mg/dL (9-20); Calcium 9.6 mg/dL (8.4-10.2); Carbon Dioxide 26 mmol/L (22-30); Chloride 107 mmol/L (98-107); Glucose 166 mg/dL (74-99); Non-African American GFR(CKD) >90 (>60 ml/min/1.73 sqM); Potassium 3.5 mmol/L (3.5-5.1); Sodium 142 mmol/L (137-145)
[2021-04-06] MEDS: amLODIPine 5 MG TAB PO SCH (09:28)
[2021-04-06] MEDS ORDERED: CHLORTHALIDONE 25 MG TAB PO SCH (10:15)
[2021-04-06 11:28] VITALS: TEMP 97.8
[2021-04-06 11:33] LABS: Glucose,Whole Blood 100 mg/dL (75-99)
--- NOTE | 2021-04-06 12:54 | P.PN ---
Subjective Progress Note Date: 04/06/21 HISTORY OF PRESENT ILLNESS: The patient is a 65-year-old male with a history of hypertension, hyperlipidemia, diabetes mellitus and history of CAD who presented to the emergency room after being found to have mild troponin elevation. He had COVID- 19 infection in January, he was vaccinated before, he received monoclonal antibodies but has continued to be dyspneic on exertion since that time. He has been feeling fatigued but has no fever or chills, his cough is better and his breathing is better overall. He was sent to the emergency room and had a troponin value that was mildly elevated and he was subsequently admitted. The patient has underwent PCI of his circumflex in 2018 as well as his LAD. Repeat cardiac catheterization in August 2019 revealed patent stent with significant disease in the very distal LAD with no progression. The patient had no symptoms of angina pectoris since his last visit to our office in 2019. He had some dizziness but no palpitation. He denies any PND or orthopnea. He has mild peripheral edema that has been chronic but stable. His CT angiogram revealed an ascending aortic aneurysm of 5.4 cm there was noted in the past. His coronary risk factors are positive for hypertension, hyperlipidemia and diabetes. He is trying to adjust his eating habits. His blood pressure has been difficult to control in the past. His prior workup showed an ejection fraction of 50%. He has no documented history of malignant arrhythmia. His EKG showed sinus mechanism with right bundle branch block and left axis deviation. His CT scan of the chest showed an ascending aortic aneurysm of 5.4. He had evidence of gallstones. He had coronary artery calcification. His troponins 0.052, 0.067 and 0.065 with a NT proBNP 284. The patient had mild elevation of the troponin in the past with no evidence of progression of disease by cardiac cathet erization 04/06/2021 Patient examined this morning at the bedside. Patient denies chest pain or pressure. He denies shortness of breath. Echocardiogram completed revealing ejection fraction 55-60%, trace mitral regurgitation, and trace tricuspid regurgitation with a aortic root dilated measuring 4.5cm. Patient's blood pressure remains elevated this morning. Patients blood pressure medications have been adjusted by cardiology and internal medicine this morning. PHYSICAL EXAM: VITAL SIGNS: Reviewed. GENERAL: Well-developed in no acute distress. NECK: Supple. No JVD or thyromegaly LUNGS: Respirations even and unlabored. Lungs essentially clear to auscultation bilaterally. HEART: Regular rate and rhythm. S1 and S2 heard. EXTREMITIES: Normal range of motion. No clubbing or cyanosis. Peripheral pulses intact. No lower extremity edema ASSESSMENT: Dyspnea on exertion, no evidence of congestive heart failure, post Covid 19 infection Mild troponin elevation with no evidence of acute ischemic event Ascending aortic aneurysm Hypertension, uncontrolled Hyperlipidemia Diabetes PLAN: Continue current cardiac medications Patients BP medications have been adjusted by cardiology and internal medicine this AM. We will defer further BP management to internal medicine. Patient may be discharged home today from a cardiac standpoint Patient to follow up outpatient Nurse practitioner note has been reviewed by physician. Signing provider agrees with the documented findings, assessment, and plan of care. Objective - Vital Signs Vital signs: Vital Signs Temp 97.8 F 04/06/21 08:00 Pulse 65 04/06/21 11:37 Resp 18 04/06/21 08:00 BP 175/121 04/06/21 11:37 Pulse Ox 96 04/06/21 11:37 Intake & Output 04/05/21 04/06/21 04/06/21 18:59 06:59 18:59 Intake Total 40 420 Balance 40 420 Weight 149.685 kg 151.2 kg Intake: Oral 40 420 Other: # Voids 1 - Labs CBC & Chem 7: 04/05/21 08:16 04/06/21 08:41 Labs: Abnormal Lab Results - Last 24 Hours (Table) 04/05/21 04/05/21 04/05/21 Range/Units 08:16 13:39 17:28 Glucose (74-99) mg/dL POC Glucose (mg/dL) 120 H 123 H (75-99) mg/dL Hemoglobin A1c 6.8 H (0.0-6.0) % 04/05/21 04/06/21 04/06/21 Range/Units 20:10 06:09 08:41 Glucose 166 H (74-99) mg/dL POC Glucose (mg/dL) 144 H 124 H (75-99) mg/dL Hemoglobin A1c (0.0-6.0) % 04/06/21 Range/Units 11:27 Glucose (74-99) mg/dL POC Glucose (mg/dL) 100 H (75-99) mg/dL Hemoglobin A1c (0.0-6.0) %
--- NOTE | 2021-04-06 12:58 | P.PN ---
Subjective Progress Note Date: 04/06/21 Principal diagnosis: Ascending aortic aneurysm. Past medical history significant for coronary artery disease with previous myocardial infarction status post PCI, hypertension, hyp erlipidemia, chronic combined systolic and diastolic heart failure, diabetes mellitus type 2, obstructive sleep apnea with home CPAP use, BPH, PVD, history of tobacco dependence and recent COVID-19 infection. The patient was seen in follow-up today at his bedside on the cardiac stepdown unit. Currently he is lying in bed, is awake, alert and oriented 3 and is in no acute distress. Patient denies any complaints of pain or shortness of breath at this time. A transthoracic 2-D echocardiogram was completed yesterday which demonstrated an overall left ventricular systolic function to be normal with an ejection fraction between 55 and 60%, a trileaflet aortic valve which was mildly thickened, trace mitral valve regurgitation, trace tricuspid valve regurgitation and an aortic root dilated measuring 4.5 cm. His blood pressure in the last 24 hours has been ranging from 146/86 mmHg to 175/121 mmHg. He was seen and evaluated from Dr. Oseguera from cardiothoracic surgery yesterday and can be d ischarged home when okay with primary care and other consultants once his blood pressure is better controlled. Discussions were had with the patient by Dr. Oseguera and he has been scheduled to see Dr. Oseguera in one month as an outpatient. Objective - Vital Signs Vital signs: Vital Signs Temp 97.8 F 04/06/21 08:00 Pulse 65 04/06/21 11:37 Resp 18 04/06/21 08:00 BP 175/121 04/06/21 11:37 Pulse Ox 96 04/06/21 11:37 Intake & Output 04/05/21 04/06/21 04/06/21 18:59 06:59 18:59 Intake Total 40 420 Balance 40 420 Weight 149.685 kg 151.2 kg Intake: Oral 40 420 Other: # Voids 1 - Exam CONSTITUTIONAL: Awake and alert, appears comfortable, cooperative, well- developed, well-nourished, no pain, no acute distress EYES: Pupils equal, round, reactive to light, normal ocular movement ENT: Moist mucous membranes without oral lesions present NECK: No masses, no bruits, trachea midline RESPIRATORY: Lungs sounds clear to auscultation and diminished bilaterally. Respirations even, nonlabored. Currently on room air with oxygen saturation 97%. Strong cough. CARDIOVASCULAR: S1, S2 present. Regular rate and rhythm, sinus rhythm on telemetry. Palpable peripheral pulses bilaterally. Trace bilateral lower extremity edema present. No calf pain or tenderness noted. GASTROINTESTINAL: Abdomen soft, nontender, nondistended without masses or organomegaly noted. There is no rebound or guarding present. Active bowel sounds present 4 quadrants. GENITOURINARY: Continues to void. INTEGUMENTARY: Skin is warm and dry with no clubbing or cyanosis. NEUROLOGIC: Cranial nerves II through XII intact, normal coordination, no obvious motor or sensory deficits, speech is normal MUSKULOSKELETAL: Able to move all extremities, strength equal bilaterally, normal posture PSYCHIATRIC: Alert and oriented to person place and time, appropriate affect, intact judgment and insight - Allied health notes Allied health notes reviewed: nursing - Labs CBC & Chem 7: 04/05/21 08:16 04/06/21 08:41 Labs: Abnormal Lab Results - Last 24 Hours (Table) 04/05/21 04/05/21 04/05/21 Range/Units 08:16 13:39 17:28 Glucose (74-99) mg/dL POC Glucose (mg/dL) 120 H 123 H (75-99) mg/dL Hemoglobin A1c 6.8 H (0.0-6.0) % 04/05/21 04/06/21 04/06/21 Range/Units 20:10 06:09 08:41 Glucose 166 H (74-99) mg/dL POC Glucose (mg/dL) 144 H 124 H (75-99) mg/dL Hemoglobin A1c (0.0-6.0) % 04/06/21 Range/Units 11:27 Glucose (74-99) mg/dL POC Glucose (mg/dL) 100 H (75-99) mg/dL Hemoglobin A1c (0.0-6.0) % - Imaging and Cardiology 2-D echocardiogram results reviewed. Assessment and Plan Assessment: 1. Incidental finding of 5.4 cm aneurysmal ascending aorta on chest CTA 2. Evidence of pulmonary hypertension 3. Dyspnea on exertion, likely multifactorial including post covid infection 4. Coronary artery disease with previous myocardial infarction status post PCI 5. Hypertension, hypertensive urgency this admission 6. Hyperlipidemia, treated 7. Chronic combined systolic and diastolic heart failure 8. Type II diabetes on Metformin 9. Obstructive sleep apnea with home cpap use 10. BPH on flomax 11. PVD 12. Previous tobacco dependence 13. Recent covid 19 infection 01/2021 Plan: 1. Continue for better blood pressure control, no strenuous activity. 2. Patient will need a follow-up computed tomography scan of his chest in 6 months which will be arranged by Dr. Oseguera's office as an outpatient basis. 3. Per the cardiothoracic surgery standpoint once his blood pressure is better controlled he can be discharged home when okay with other consultants and primary care service and follow-up with Dr. Oseguera as an outpatient on 04/30/2021 at 2:15 PM. 4. We will continue to follow the patient on an as-needed basis, please feel free to call for further questions. Time with Patient: Greater than 30
--- NOTE | 2021-04-06 14:15 | P.CNPUL ---
History of Present Illness Consult date: 04/06/21 Reason for consult: dyspnea History of present illness: 65-year-old patient was admitted to the hospital because of some shortness of breath and chest discomfort. The patient is obese with a BMI of 39.5. The patient also has obstructive sleep apnea maintained on APAP machine on outpatient basis with a minimum pressure of 5 and a maximal pressure of 20. He has other comorbid conditions. He has nonocclusive coronary artery disease based on a previous cardiac catheterization that was done in 2020. Hypertension, hyperlipidemia, ascending aortic aneurysm, chronic systolic/diastolic heart failure, diabetes mellitus type 2, BPH, peripheral vascular disease and history of smoking. The patient also has a cold and 19 infection back in January 2021 from which she recovered nicely. He was being seen by his primary care physician's office as he was reporting some exertional dyspnea. Denied having any chest pain. He also was having some increased swelling lower extremity bilaterally. He was advised to come into the hospital to undergo further testing. Lab work showed a white cell count of 12.5 with a hemoglobin of 14.7 and the platelet count of 306. Electrodes were normal with a potassium level of 3.2 that was replaced. BNP was 15. Creatinine was 0.9. Troponin was at 0.065. ProBNP level was 284. LFTs were normal. COVID 19 testing was repeated it was negative. The patient's proBNP level was 284. The CT angiogram was done and showed no evidence of knee acute pneumonia or any acute abnormalities consistent with COVID 19. The patient had no evidence of any filling defect to indicate pulmonary embolism. At the same time, there was an ascending aortic aneurysm that was measuring 5.4 cm in size and the descendin g thoracic aorta was 4.0 cm in size. No evidence of any pulmonary embolism. There was some few scattered nonspecific mildly enlarged mediastinal and right hilar lymphadenopathy largest measuring up to 2.1 cm in size probably reactive. There was an incidental gallstone measuring 2.6 cm and a lipid rich right adrenal adenoma measuring 2.8 cm in size. The patient is currently on room air oxygen. The patient denies taking any form of respiratory medications or inhalers. No reported cough sputum production chest tightness or wheeze. No 70 bronchial asthma. Very compliant with CPAP therapy at a CPAP machine was checked at the bedside. His blood pressure is elevated and cardiology is making appropriate adjustments on a blood pressure medication. Patient was seen also by cardiology and by cardio thoracic surgery regarding the ascending aortic aneurysm. Recommendations were to monitor the aneurysm itself and control the blood pressure. Review of Systems Constitutional: Denies chills, Denies fever Eyes: denies as per HPI, denies blurred vision, denies bulging eye, denies decreased vision, denies diplopia, denies discharge, denies dry eye, denies irritation, denies itching, denies pain, denies photophobia, denies loss of peripheral vision, denies loss of vision, denies tunnel vision/blind spots Ears: deny: decreased hearing, ear discharge, earache, tinnitus Ears, nose, mouth and throat: Reports as per HPI Breasts: absent: as per HPI, gynecomastia Cardiovascular: Reports claudication, Reports decreased exercise tolerance, Reports dyspnea on exertion Respiratory: Reports dyspnea Gastrointestinal: Reports as per HPI Genitourinary: Reports as per HPI Musculoskeletal: Reports as per HPI Musculoskeletal: absent: ankle pain, ankle stiffness, ankle swelling Integumentary: Reports as per HPI Neurological: Reports as per HPI Psychiatric: Reports as per HPI Endocrine: Reports as per HPI Hematologic/Lymphatic: Reports as per HPI Allergic/Immunologic: Reports as per HPI Past Medical History Past Medical History: Coronary Artery Disease (CAD), Cancer, Heart Failure, Hypertension, Myocardial Infarction ([place]), Osteoarthritis (OA), Prostate Disorder, Vascular Disorder Additional Past Medical History / Comment(s): Covid + Dr. Astudillo's office on 02/17/21 and had mononucal antibodies 02/08/21, NIDDM type II, neuropathy bilateral feet, SANJU with Cpap, R ear basal cell skin cancer/removed, BPH, elevate PSA, PVD Last Myocardial Infarction Date:: 08/11/19 History of Any Multi-Drug Resistant Organisms: None Reported Past Surgical History: Heart Catheterization, Heart Catheterization With Stent, Joint Replacement, Orthopedic Surgery Additional Past Surgical History / Comment(s): PCI with a total of 7 stents, bilateral knee ACLs, total L knee arthroplasty, R knee arthroscopy, bilateral surgery on elbows, R ear cancer/reconstructive surgery. Past Anesthesia/Blood Transfusion Reactions: No Reported Reaction Date of Last Stent Placement:: 2017 Smoking Status: Former smoker - Past Family History Father Family Medical History: Dementia Additional Family Medical History / Comment(s): Father is . Mother Family Medical History: Cancer Additional Family Medical History / Comment(s): MOTHER OF CANCER-FOUND IN LIVER-PRIMARY NEVER KNOWN. Medications and Allergies Home Medications Medication Instructions Recorded Confirmed Type Metoprolol Succinate [Toprol XL] 50 mg PO BID 08/07/16 04/04/21 History cloNIDine 0.3 MG/24HR PATCH 1 patch TRANSDERM [place] 08/07/16 04/04/21 History [Catapres-TTS] Furosemide [Lasix] 20 mg PO DAILY@1600 03/14/17 04/04/21 History Tamsulosin HCl [Flomax] 0.4 mg PO HS 03/14/17 04/04/21 History Aspirin 81 mg PO DAILY #302 chew 03/17/17 04/04/21 Rx Atorvastatin [Lipitor] 40 mg PO HS #30 tab 03/17/17 04/04/21 Rx Clopidogrel [Plavix] 75 mg PO DAILY 04/02/17 04/04/21 History Potassium Chloride [Klor-Con 20] 20 meq PO DAILY 08/11/19 04/04/21 History hydrALAZINE HCL [Apresoline] 100 mg PO TID 08/11/19 04/04/21 History hydroCHLOROthiazide [Hydrodiuril] 25 mg PO DAILY@0900 08/11/19 04/04/21 History metFORMIN HCL 500 mg PO BID 08/11/19 04/04/21 History Budesonide/Glycopyr/Formoterol 2 puff INHALATION RT-BID 04/04/21 04/04/21 History [Breztri Aerosphere Inhaler] Losartan Potassium 100 mg PO DAILY 04/04/21 04/04/21 History Multivitamins, Thera [Multivitamin 1 tab PO DAILY 04/04/21 04/04/21 History (formulary)] Potassium Chloride [Klor-Con 20] 40 meq PO HS 04/04/21 04/04/21 History Allergies Allergy/AdvReac Type Severity Reaction Status Date / Time Penicillins Allergy Mild Unknown Verified 04/04/21 18:18 Childhood amlodipine [From Lotrel] AdvReac ITCHING/SWE Verified 04/04/21 18:18 LLING benazepril [From Lotrel] AdvReac ITCHING/SWE Verified 04/04/21 18:18 LLING Physical Exam Vitals: Vital Signs Temp Pulse Pulse Resp BP BP Pulse Ox 04/06/21 11:37 65 175/121 96 04/06/21 08:00 97.8 F 70 18 168/117 94 L 04/06/21 05:00 63 18 171/102 97 04/06/21 00:00 68 20 146/86 97 04/05/21 20:00 98.0 F 69 20 152/91 96 04/05/21 17:30 98.2 F 74 18 178/118 96 04/05/21 16:00 72 175/93 97 04/05/21 13:00 66 16 165/92 95 Intake and Output 04/05/21 04/06/21 04/06/21 22:59 06:59 14:59 Intake Total 40 420 Balance 40 420 Intake: Oral 40 420 Other: # Voids 1 1 Weight 151.2 kg CONSTITUTIONAL: Awake and alert, appears comfortable, cooperative, well- developed, well-nourished, no pain, no acute distress, the patient is on room air oxygen for now EYES: Pupils equal, round, reactive to light, normal ocular movement ENT: Moist mucous membranes without oral lesions present NECK: No masses, no bruits, trachea midline RESPIRATORY: Lungs sounds clear to auscultation bilaterally. Respirations even, nonlabored. Currently on room air with oxygen saturation 97%. Strong cough. CARDIOVASCULAR: S1, S2 present. Regular rate and rhythm, sinus rhythm on telemetry. Palpable peripheral pulses bilaterally. Trace bilateral lower extremity edema present. No calf pain or tenderness noted. GASTROINTESTINAL: Abdomen soft, nontender, nondistended without masses or organomegaly noted. There is no rebound or guarding present. Active bowel sounds present 4 quadrants. GENITOURINARY: Deferred INTEGUMENTARY: Skin is warm and dry with evidence of good perfusion. NEUROLOGIC: Cranial nerves II through XII intact, normal coordination, no obvious motor or sensory deficits, speech is normal MUSKULOSKELETAL: Able to move all extremities, strength equal bilaterally, normal posture PSYCHIATRIC: Alert and oriented to person place and time, appropriate affect, intact judgment and insight Results - Laboratory Findings CBC and BMP: 04/05/21 08:16 04/06/21 08:41 Abnormal lab findings: Abnormal Labs 04/04/21 04/04/21 04/04/21 15:31 15:50 15:50 WBC 12.5 H RDW Neutrophils # 9.2 H Potassium 3.2 L Chloride Glucose 114 H POC Glucose (mg/dL) Hemoglobin A1c Troponin I 0.052 H* 04/04/21 04/04/21 04/04/21 18:01 20:47 22:41 WBC RDW Neutrophils # Potassium Chloride Glucose POC Glucose (mg/dL) 107 H Hemoglobin A1c Troponin I 0.067 H* 0.065 H* 04/05/21 04/05/21 04/05/21 07:57 08:16 08:16 WBC RDW 15.6 H Neutrophils # Potassium 3.4 L Chloride 108 H Glucose 112 H POC Glucose (mg/dL) 105 H Hemoglobin A1c Troponin I 04/05/21 04/05/21 04/05/21 08:16 12:06 13:39 WBC RDW Neutrophils # Potassium Chloride Glucose POC Glucose (mg/dL) 101 H 120 H Hemoglobin A1c 6.8 H Troponin I 04/05/21 04/05/21 04/06/21 17:28 20:10 06:09 WBC RDW Neutrophils # Potassium Chloride Glucose POC Glucose (mg/dL) 123 H 144 H 124 H Hemoglobin A1c Troponin I 04/06/21 04/06/21 08:41 11:27 WBC RDW Neutrophils # Potassium Chloride Glucose 166 H POC Glucose (mg/dL) 100 H Hemoglobin A1c Troponin I - Diagnostic Findings CT scan - chest: image reviewed Assessment and Plan Plan: 1 shortness of breath, not related to coronary 19 infection as the CAT scan of the chest was negative. In fact CT angiogram showed no evidence of any pulmonary embolism and was essentially negative. Shortness of breath could be related to a component of CHF and systolic/diastolic heart failure. 2 hypertension with poorly controlled blood pressure 3 ascending aortic aneurysm 5.7 cm and distal descending aortic aneurysm measuring 4.9 cm in size, no evidence of any dissection 4 obesity with a BMI of 39.5 6 obstructive sleep apnea maintained on APAP on an outpatient basis 7 coronary artery disease, nonocclusive based on a cardiac catheterization that was done 2020 8 hypertension 9 hyperlipidemia 10 diabetes mellitus type 2 11 BPH 12 peripheral vascular disease 13 COVID 19 infection back in January 2021, recovered and there are no active pulmonary involvement with COVID 19. No evidence of any infiltration, fibrosis or any pulmonary embolism. 14 skin cancer 15 degenerative arthritis Plan No active pulmonary issues CPAP with secondary compliancy with adequate no signs of ongoing COVID 19 infection or complications cardiology for tighter blood pressure control Cardiothoracic surgery to monitor the ascending aortic aneurysm which is currently measuring 5.7 cm in size Treatment is appropriate. No active pulmonary issues for now. We'll see him on an as-needed basis.
--- NOTE | 2021-04-06 15:36 | P.DS ---
<Elbert Ayers - Last Filed: 04/06/21 15:56> Providers Expected date of discharge: 04/06/21 Hospital Course: Discharge Diagnosis: Decreased exercise tolerance associated with dyspnea on exertion and excessive fatigue Pulmonary hypertension suggested on CTA, ruled out after echocardiogram was completed. Chronic diastolic heart failure with improved EF 55-60% (improving from previous echo 08/12/19 showing EF 40-45%) Elevated troponin, flat and similar to baseline Hypertensive urgency Ascending aortic aneurysm 5.4 cm, follow up with cardiothoracic surgery in one month as scheduled. -Optomizing control of BP, discussed importance of taking medications as directed close monitoring and following up as needed. Descending thoracic aortic aneurysm 4.1 cm, follow up with cardiothoracic surgery in one month as scheduled. Incidental finding on CT, Enlarged scattered mediastinal/right hilar lymph nodes -Likely reactive/postinflammatory -Recommend repeat CT in 3 months to ensure stability/resolution. Type II nnc-[id number] diabetes mellitus Obstructive sleep apnea-Continue use of home CPAP nightly BPH-Continue daily medication management with Flomax 0.4 mg nightly Dyslipidemia-Continue daily medication regimen with atorvastatin 40 mg nightly Hospital Course: Patient is a very pleasant 65-year-old male with a past medical history of CAD with previous MIs 3 and stents 7, chronic systolic and diastolic heart failure, COPD, obstructive sleep apnea CPAP dependent, hypertension, and hyperlipidemia. He presented to the emergency department with a chief complaint of dyspnea with exertion. Patient reports this has been progressively worsening after susan Covid 19 virus infection back in January. Patient states patient since he has continued to persistently have worsening exercise tolerance, excess fatigue, and shortness of breath with exertion. The patient underwent full evaluation in the emergency department. CTA chest negative for acute pulmonary emboli revealing CAD with 3 vessel coronary artery calcifications, ascending aortic aneurysm 5.4 cm and descending thoracic aortic aneurysm 4.1 cm, pulmonary artery hypertension with enlarged caliber to the main right and left pulmonary arteries measuring up to 2.9 cm, and scattered mediastinal/right hilar lymph nodes measuring up to 2.1 cm likely reactive/postinflammatory advise repeat CT in 3 months to ensure stability/resolution. EKG showing normal sinus rhythm at 99 bpm with a right bundle branch block other than rate unchanged from previous EKG in 2019. Troponins were elevated but flat at 0.052, 0.067, and 0.065. ProBNP 284. Patient was admitted under our services with consultation to cardiology and cardiothoracic surgery. Patient underwent multiple medication changes throughout admission attempting to obtain optimal blood pressure control. BP controlled after multiple medication changes. Pt reported feeling better and denied having any complaints including headache, lightheadedness, dizziness, chest pain, palpitations, or shortness of breath. Pt being discharged home at this time and instructed to closely monitor blood pressure and document findings to bring with him to next doctors appointment as additional changes may need to be made. Pt to follow up closely with PCP, cardiology, and cardiothoracic surgery and to follow up with repeat labs in 3 days to monitor electrolytes twyla sely due to being placed on aldactone and chlorthalidone. Physical exam: Patient was seen and fully evaluated at bedside this morning. He reports feeling great and ready to go home. His blood pressure was 168/117 prior to administration of blood pressure medications. Cardiology added on amlodipine, patient reports that he cannot take amlodipine because it causes swelling in his legs and itching all over his body and will not take it. Amlodipine discontinued along with Lasix and hydrochlorothiazide and patient started on chlorthalidone 50 mg daily which decreases number of medications patient will take and will assist with adherence to daily medication regimen. Patient was given chlorthalidone at 11:25 AM on blood pressure was 175/121, repeat pressure at 1333 was 137/78. Patient was monitored for another 2 hours to ensure continued improvement in blood pressure. At 1529, I went back to bedside to reassess patient and vital signs. At this time blood pressure 139/76, heart rate 64, respiratory rate 18, and SpO2 of 96%. Patient continued to deny having any complaints at this time. Educated on importance of monitoring vital signs and notifying afloat cryptologic manager immediately with any further episodes of hypotension as further adjustments may need to be made with his medication regimen. Patient is medically stable for discharge at this time. Vital signs reviewed and stable. General: Nontoxic, no distress and appears stated age. Obese male. Derm: Skin warm and dry, normal coloration for ethnicity. Head: Atraumatic, normocephalic and symmetric. Eyes: EOMs intact, no lid lag, and anicteric sclera Mouth: no lip lesions, mucus membranes moist Cardiovascular: regular rate and rhythm with normal S1S2, no murmur, positive posterior tibial pulses bilaterally, and cap refill < 2 seconds. Lungs: Respirations even, regular, and unlabored on room air. Lungs CTA bilaterally, no rhonchi, no rales, no wheezing, and no accessory muscle usage. Abdominal: soft, nontender to palpation, no guarding, no appreciable organomegaly Ext: ROM intact. No gross muscle atrophy, no edema, no contractures Neuro: Speech clear, face symmetrical and CN II-XII grossly intact with no noted focal neuro deficits Psych: Alert and oriented to person, place, time, and situation. Appropriate and pleasant affect. A total of 45 minutes of time were spent preparing this complex discharge summary. Patient Condition at Discharge: Stable Plan - Discharge Summary Discharge Rx Participant: No New Discharge Prescriptions: New Spironolactone [Aldactone] 25 mg PO DAILY 30 Days #30 tab Chlorthalidone [Hygroton] 50 mg PO DAILY 30 Days #30 tablet Continue cloNIDine 0.3 MG/24HR PATCH [Catapres-TTS] 1 patch TRANSDERM [place] Metoprolol Succinate [Toprol XL] 50 mg PO BID Tamsulosin HCl [Flomax] 0.4 mg PO HS Aspirin 81 mg PO DAILY #302 chew Atorvastatin [Lipitor] 40 mg PO HS #30 tab Clopidogrel [Plavix] 75 mg PO DAILY hydrALAZINE HCL [Apresoline] 100 mg PO TID metFORMIN HCL 500 mg PO BID Losartan Potassium 100 mg PO DAILY Budesonide/Glycopyr/Formoterol [Breztri Aerosphere Inhaler] 2 puff INHALATION RT-BID Multivitamins, Thera [Multivitamin (formulary)] 1 tab PO DAILY Discontinued Furosemide [Lasix] 20 mg PO DAILY@1600 hydroCHLOROthiazide [Hydrodiuril] 25 mg PO DAILY@0900 Potassium Chloride [Klor-Con 20] 20 meq PO DAILY Potassium Chloride [Klor-Con 20] 40 meq PO HS Discharge Medication List Metoprolol Succinate [Toprol XL] 50 mg PO BID 08/07/16 [History] cloNIDine 0.3 MG/24HR PATCH [Catapres-TTS] 1 patch TRANSDERM [place] 08/07/16 [History] Tamsulosin HCl [Flomax] 0.4 mg PO HS 03/14/17 [History] Aspirin 81 mg PO DAILY #302 chew 03/17/17 [Rx] Atorvastatin [Lipitor] 40 mg PO HS #30 tab 03/17/17 [Rx] Clopidogrel [Plavix] 75 mg PO DAILY 04/02/17 [History] hydrALAZINE HCL [Apresoline] 100 mg PO TID 08/11/19 [History] metFORMIN HCL 500 mg PO BID 08/11/19 [History] Budesonide/Glycopyr/Formoterol [Breztri Aerosphere Inhaler] 2 puff INHALATION RT-BID 04/04/21 [History] Losartan Potassium 100 mg PO DAILY 04/04/21 [History] Multivitamins, Thera [Multivitamin (formulary)] 1 tab PO DAILY 04/04/21 [History] Chlorthalidone [Hygroton] 50 mg PO DAILY 30 Days #30 tablet 04/06/21 [Rx] Spironolactone [Aldactone] 25 mg PO DAILY 30 Days #30 tab 04/06/21 [Rx] Follow up Appointment(s)/Referral(s): Delta Aguillon MD [STAFF PHYSICIAN] - 04/18/21 4:15 pm (Cardiology) Bryce Astudillo MD [Primary Care Provider] - 04/11/21 11:00 am (appointment is with Altagracia PALOMINO) Mike Oseguera MD [STAFF PHYSICIAN] - 04/30/21 2:15 pm (Cardiothoracic Surgeon) Ambulatory/Diagnostic Orders: Basic Metabolic Panel [LAB.AMB] Time Frame: 3 Days, Location: None Selected Magnesium [LAB.AMB] Location: None Selected Patient Instructions/Handouts: Thoracic Aortic Aneurysm (DC), Chronic Hypertension (DC) Activity/Diet/Wound Care/Special Instructions: Activity: As tolerated. Take breaks as needed. Diet: Heart healthy and carb consistent diet. Avoid salts, or foods with hidden salts such as canned or boxed foods and frozen dinners. Extra salt makes your heart work harder and traps the fluid in your body for longer. Special Instructions: Take all of your medications as directed and remember to keep all of your doctor's appointments and follow-up as needed. Monitor your blood pressure closely twice daily and document in a daily log/journal to bring with you to your next doctors appointment as further adjustments may need to be made to your blood pressure regimen. If you continuously have a BP greater than It is important to avoid strenuous activity and no heavy lifting. Return to ER immediately if you experience any chest pain or discomfort. Incidental finding on CT, Enlarged scattered mediastinal/right hilar lymph nodes believed to be reactive/postinflammatory, Recommend repeat CT in 3 months to ensure stability/resolution of these findings. Thank you for allowing us to participate in your care, it was truly a pleasure having you for our patient!!! Discharge Disposition: HOME SELF-CARE <Brandy Aguilar - Last Filed: 04/06/21 16:18> Providers Date of admission: 04/04/21 18:48 Attending physician: Brandy Aguilar, Consults: 04/04/21 18:22 Consult Physician Urgent Consulting Provider: Delta Aguillon Consult Reason/Comments: Elevated troponin, known cardiac history Do you want consulting provider notified?: Yes 04/05/21 08:37 Consult Physician Routine Consulting Provider: Roderick Ramírez Consult Reason/Comments: ascending aortic aneurysm Do you want consulting provider notified?: Yes 04/05/21 16:53 Consult Physician Routine Consulting Provider: Quique Ross Consult Reason/Comments: COPD 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 I did not physically speak with or examine the patient on this date.
[2021-04-06 15:46] VITALS: BP 139/76; PULSE 64
[2021-04-07] MEDS ORDERED: CHLORTHALIDONE 25 MG TAB PO SCH (09:00)
[2021-04-08] MEDS ORDERED: cloNIDine 0.3 MG/24HR PATCH TRANSDERM SCH (11:14)
== END 2021-04-06 16:47 | disposition home or self-care (01) ==
LOC: EC 16:45 → 3SCARD 18:48
PROVIDERS: ADMIT Internal Medicine; ATTEND Internal Medicine
DX: I11.0 Hypertensive heart disease with heart failure (principal); I50.42 Chronic combined systolic (congestive) and diastolic (congestive) heart failure; I16.0 Hypertensive urgency; I25.10 Atherosclerotic heart disease of native coronary artery without angina pectoris; E11.51 Type 2 diabetes mellitus with diabetic peripheral angiopathy without gangrene; I71.2 Thoracic aortic aneurysm, without rupture; J44.9 Chronic obstructive pulmonary disease, unspecified; E78.5 Hyperlipidemia, unspecified; E87.6 Hypokalemia; K80.20 Calculus of gallbladder without cholecystitis without obstruction; I25.2 Old myocardial infarction; R97.20 Elevated prostate specific antigen [PSA]; R59.0 Localized enlarged lymph nodes; G47.33 Obstructive sleep apnea (adult) (pediatric); I45.10 Unspecified right bundle-branch block; D35.01 Benign neoplasm of right adrenal gland; M17.0 Bilateral primary osteoarthritis of knee; G62.9 Polyneuropathy, unspecified; E66.9 Obesity, unspecified; Z68.39 Body mass index [BMI] 39.0-39.9, adult; J98.11 Atelectasis; N40.0 Benign prostatic hyperplasia without lower urinary tract symptoms; K57.30 Diverticulosis of large intestine without perforation or abscess without bleeding; Z20.822 Contact with and (suspected) exposure to COVID-19; Z79.82 Long term (current) use of aspirin; Z79.899 Other long term (current) drug therapy; Z79.02 Long term (current) use of antithrombotics/antiplatelets; Z79.84 Long term (current) use of oral hypoglycemic drugs; Z88.0 Allergy status to penicillin; Z86.16 Personal history of COVID-19; Z96.652 Presence of left artificial knee joint; Z87.891 Personal history of nicotine dependence; Z95.5 Presence of coronary angioplasty implant and graft; Z85.828 Personal history of other malignant neoplasm of skin; Z80.9 Family history of malignant neoplasm, unspecified; Z82.0 Family history of epilepsy and other diseases of the nervous system
CPT/HCPCS: 99285; 96376; 96372 ×2; 96374; 36415 ×2; 93005; 93306; 83880; 80053 ×2; 80048; 82553; 83690; 83735; 84100; 84484; 85025 ×2; 83036; 87635; 71275; G0378 ×3; J0360; Q9950; Q9967; J1644 ×2

== ENCOUNTER → 2021-10-03 | Outpatient (CLI) | payer MEDICARE ==
[2021-10-03 12:43] LABS: African American GFR (CKD) >90 (>60 ml/min/1.73 sqM); Blood Urea Nitrogen 15 mg/dL (9-20); Non-African American GFR(CKD) 86 (>60 ml/min/1.73 sqM)
--- NOTE | 2021-10-03 14:58 | CT ---
CT CHEST FOR PULMONARY EMBOLISM. EXAMINATION TYPE: CT angio chest DATE OF EXAM: 10/03/2021 INDICATION: Thoracic aortic aneurysm without rupture. CT DLP: 1776.9 mGycm, Automated exposure control for dose reduction was used. CONTRAST: Patient injected with 100ml mL of Isovue 370. COMPARISON: 04/04/2021 TECHNIQUE: CT of the chest is performed on a spiral scan at 2 mm thick sections. Study is performed with intravenous contrast timed for evaluation for pulmonary embolism. This will limit additional po rtions of the evaluation. 3-D MIP images reconstructed by the technologist are reviewed on the compu ter in the coronal and sagittal planes. FINDINGS: No persistent filling defects are evident to suggest an acute pulmonary embolism. There is a 1.4 cm pretracheal lymph node. Couple of small pretracheal mediastinal lymph nodes are pre sent. The ascending aorta diameter at the level of the main pulmonary artery is 5.5 cm. The main pu lmonary artery diameter at the bifurcation is 3.2 cm. There is intense coronary artery calcification. Consider additional workup. Lung windows are clear. Limited CT sections were obtained from the upper abdomen. A large gallstone is present. Vascular calc ifications within the aorta. Renal artery takeoff superior mesenteric artery and celiac axis takeoffs appear normal. There is a 2.4 cm transverse dimension nodule within the right adrenal gland. IMPRESSIONS: 1. Stable ascending thoracic aortic aneurysm. 2. Cholelithiasis. 3. 2.4 cm right adrenal nodule. 4. Marked coronary artery calcification. Consider additional workup.
== END | disposition home or self-care (01) ==
LOC: RADCTMAIN 11:46
PROVIDERS: ATTEND Thoracic Surgery (Cardiothoracic Vascular Surgery)
DX: I71.2 Thoracic aortic aneurysm, without rupture (principal); K80.20 Calculus of gallbladder without cholecystitis without obstruction; I25.10 Atherosclerotic heart disease of native coronary artery without angina pectoris; D35.01 Benign neoplasm of right adrenal gland
CPT/HCPCS: 82565; 84520; 71275; 36415; Q9967

== ENCOUNTER 2021-10-16 05:45 | Day surgery (SDC) | payer MEDICARE, OTHER ==
[2021-10-11 14:13] VITALS: BMI 37.3
[2021-10-16] MEDS ORDERED: NITROGLYCERIN SL TABS 0.4 MG TAB SUBLINGUAL PRN (05:52)
[2021-10-16] MEDS ORDERED: ALPRAZolam 0.25 MG TAB PO PRN (05:52)
[2021-10-16] MEDS ORDERED: HEPARIN SODIUM,PORCINE 10,000 UNIT in SODIUM CHLORIDE 0.9% 1,000 ML IRRIGATION PRN (05:52)
[2021-10-16] MEDS ORDERED: HEPARIN SODIUM,PORCINE 2,500 UNIT in SODIUM CHLORIDE 0.9% 250 ML IRRIGATION PRN (05:52)
[2021-10-16] MEDS ORDERED: ALPRAZolam 0.5 MG TAB PO PRN (05:52)
[2021-10-16] MEDS ORDERED: SODIUM CHLORIDE 0.9% 1,000 ML in EMPTY BAG 1 BAG IV SCH (05:52)
[2021-10-16] MEDS ORDERED: SODIUM CHLORIDE 0.9% 1,000 ML IV ONE (06:01)
[2021-10-16 06:24] LABS: Glucose,Whole Blood 127 mg/dL (70-110)
[2021-10-16] MEDS ORDERED: CLOPIDOGREL 75 MG TAB ONE (06:38)
[2021-10-16 06:43] LABS: Basophils % (A) 1 %; Eosinophils # (A) 0.4 k/uL (0-0.7); Eosinophils % (A) 4 %; HCT 41.3 % (39.0-53.0); HGB 13.7 gm/dL (13.0-17.5); Lymphocytes # (A) 2.5 k/uL (1.0-4.8); Lymphocytes % (A) 30 %; MCH 30.5 pg (25.0-35.0); MCHC 33.1 g/dL (31.0-37.0); MCV 92.1 fL (80.0-100.0); Mean Platelet Volume 8.1; Monocytes # (A) 0.5 k/uL (0-1.0); Monocytes % (A) 6 %; Neutrophils # (A) 4.8 k/uL (1.3-7.7); Neutrophils % (A) 58 %; Platelet Count 289 k/uL (150-450); RBC 4.49 m/uL (4.30-5.90); WBC 8.2 k/uL (3.8-10.6)
[2021-10-16 06:53] LABS: African American GFR (CKD) >90 (>60 ml/min/1.73 sqM); Anion Gap 11 mmol/L; Blood Urea Nitrogen 14 mg/dL (9-20); Calcium 9.5 mg/dL (8.4-10.2); Carbon Dioxide 26 mmol/L (22-30); Chloride 105 mmol/L (98-107); Glucose 125 mg/dL (74-99); Non-African American GFR(CKD) 82 (>60 ml/min/1.73 sqM); Potassium 3.2 mmol/L (3.5-5.1); Sodium 142 mmol/L (137-145)
[2021-10-16 06:55] VITALS: RESP 16; TEMP 98.6
[2021-10-16] MEDS ORDERED: ATORVASTATIN 80 MG TAB PO ONE (07:00)
[2021-10-16] MEDS ORDERED: ASPIRIN 325 MG TAB PO ONE (07:00)
[2021-10-16] MEDS ORDERED: VERAPAMIL 2.5 MG/ML 2 ML AMP ONE (07:18)
[2021-10-16] MEDS ORDERED: fentaNYL (PF) 50 MCG/ML 2 ML AMP ONE (07:31)
[2021-10-16] MEDS ORDERED: fentaNYL (PF) 50 MCG/ML 2 ML AMP IV ONE (07:32)
[2021-10-16] MEDS ORDERED: LIDOCAINE 1% INJ 10MG/ML (5 ML VIAL-PF) SQ ONE (07:35)
[2021-10-16] MEDS ORDERED: IOPAMIDOL-370 125ML BTL INJ ONE (07:56)
[2021-10-16] MEDS ORDERED: RX INFO: IV CONTRAST WAS GIVEN 1 EACH MISC MISCELLANE PRN (08:10)
[2021-10-16] MEDS ORDERED: SODIUM CHLORIDE 0.9% 1,000 ML IV SCH (08:15)
--- NOTE | 2021-10-16 08:18 | P.CARDCATH ---
Date of Procedure: 10/16/21 Description of Procedure: Cardiac Catheterization: The patient is a 66-year-old male with a known history of CAD, ascending aortic aneurysm being evaluated for surgery intervention, history of hypertension, hyperlipidemia and diabetes mellitus. Recommendations were made regarding cardiac catheterization, the risks and the complications were discussed with the patient who is in full understanding and agreement. Procedure Description: Patient was brought to bundle tier and labeler in fasting semi-sedated state after receiving Fentanyl and Benadryl achieiving moderate conscious sedated state. Using Xylocaine Anesthesia and Seldinger technique, a 6-Tajik sheath was introduced in the right femoral artery . Subsequently, selective coronary angiography was performed using a 6-Tajik 4 bend right and 5 bend left Trip catheter. Multiple views of the coronary artery including hemiaxial views were obtained. The 6-Tajik Pigtail catheter was used to cross the aortic valve and LVEDP was calculated. Following that, catheter and sheath were removed. Hemostasis was obtained with deployment of Angio-Seal. There was no immediate complication. Patient was returned to room in stable condition. Findings: Fluoroscopy: There is calcifications involving the LAD Left main: This is a short sized vessel, bifurcating immediately into LAD and left circumflex, left main has no high-grade stenosis LAD: This is a large size vessel, reaching to the apex, giving rise to small diagonal branch, the proximal LAD has 30% eccentric plaque, the mid stented LAD is patent with no significant in-stent restenosis. The mid distal segment has a 40% plaque and there is a 90% plaque beyond the apex. Left circumflex: This is a nondominant vessel, giving rise to a large obtuse marginal branch, the stented segment and the obtuse marginal branch are patent with mild intimal disease RCA: This is a dominant vessel, moderate in caliber, the RCA has mild disease in the midsegment with no evidence of high-grade stenosis Left Ventriculogram: Not performed Hemodynamics: There was no gradient across the aortic valve, LVEDP was 16-20 mmHg Conclusion: 1. Calcified coronary arteries 2. Patent stent in the LAD and left circumflex 3. Mild to moderate triple vessel disease 4. Right dominance Recommendations: I have recommended to continue medical therapy, the patient will proceed with his evaluation for ascending aortic aneurysm repair. The findings and the recommendations were discussed with the patient and the family and they were in full understanding and agreement. Duration of sedation is 20 minutes.
[2021-10-16] MEDS ORDERED: POTASSIUM CHLORIDE ER 20 MEQ TAB.ER PO SCH (09:00)
[2021-10-16] MEDS ORDERED: ASPIRIN 81 MG PO SCH (09:00)
[2021-10-16] MEDS ORDERED: NON FORMULARY DRUG (Losartan Potassium [Losartan Potassium] 100 MG Tablet) PO SCH (09:00)
[2021-10-16] MEDS ORDERED: NON FORMULARY DRUG (Hydralazine Hcl [Apresoline] 100 MG Tablet) PO SCH (09:00)
[2021-10-16] MEDS ORDERED: METOPROLOL SUCCINATE (ER) 50 MG TAB.ER.24H PO SCH (09:00)
[2021-10-16] MEDS ORDERED: SPIRONOLACTONE 25 MG TAB PO SCH (09:00)
[2021-10-16] MEDS ORDERED: CLOPIDOGREL 75 MG TAB PO SCH (09:00)
[2021-10-16] MEDS ORDERED: MULTIVITAMINS, THERA 1 EACH TAB PO SCH (09:00)
[2021-10-16] MEDS ORDERED: CHLORTHALIDONE 25 MG TAB PO SCH (09:00)
[2021-10-16 13:30] VITALS: BP 149/77; PULSE 63
[2021-10-16] MEDS ORDERED: NON FORMULARY DRUG (Budesonide/Glycopyr/Formoterol [Breztri Aerosphere Inhaler] 10.7 GM Gm INHALATION SCH (20:00)
[2021-10-16] MEDS ORDERED: TAMSULOSIN 0.4 MG CAP.ER.24H PO SCH (21:00)
[2021-10-16] MEDS ORDERED: ATORVASTATIN 40 MG TAB PO SCH (21:00)
[2021-10-21] MEDS ORDERED: cloNIDine 0.3 MG/24HR PATCH TRANSDERM SCH (08:11)
== END 2021-10-16 13:07 | disposition home or self-care (01) ==
LOC: CATHCVL 05:45
PROVIDERS: ATTEND Internal Medicine Interventional Cardiology
DX: I25.10 Atherosclerotic heart disease of native coronary artery without angina pectoris (principal); I25.84 Coronary atherosclerosis due to calcified coronary lesion; I10 Essential (primary) hypertension; E78.2 Mixed hyperlipidemia; E11.51 Type 2 diabetes mellitus with diabetic peripheral angiopathy without gangrene; Z72.0 Tobacco use; Z79.82 Long term (current) use of aspirin; Z79.899 Other long term (current) drug therapy; Z88.0 Allergy status to penicillin; Z88.1 Allergy status to other antibiotic agents; E66.9 Obesity, unspecified; Z68.38 Body mass index [BMI] 38.0-38.9, adult; I71.2 Thoracic aortic aneurysm, without rupture; Z79.02 Long term (current) use of antithrombotics/antiplatelets; Z20.822 Contact with and (suspected) exposure to COVID-19
CPT/HCPCS: 93458; 80048; 85025; 87635; C1769 ×2; C1760; C1894; J2001; J3010; Q9967

== ENCOUNTER → 2021-11-08 | Outpatient (CLI) | payer MEDICARE ==
--- NOTE | 2021-11-09 09:13 | XR ---
EXAMINATION TYPE: XR chest 2V DATE OF EXAM: 11/08/2021 COMPARISON: NONE HISTORY: Shortness of breath TECHNIQUE: Frontal and lateral views of the chest are obtained. FINDINGS: Scattered senescent parenchymal changes noted. Hyperinflation compatible with COPD. No evidence for infiltrate. No evidence for atelectasis. Heart size is stable. Mediastinal structures are stable and grossly unremarkable. No evidence for hilar prominence. Degenerative changes dorsal spine. IMPRESSION: 1. No evidence for acute pulmonary disease.
--- NOTE | 2021-11-09 12:55 | CT ---
EXAMINATION TYPE: CT abdomen pelvis wo con DATE OF EXAM: 11/08/2021 COMPARISON: None HISTORY: Midline abdominal pain CT DLP: 1287 mGycm Examination of the solid and hollow viscera is limited given the lack of contrast. FINDINGS: LUNG BASES: No evidence for nodule. No evidence for infiltrate. There is cardiomegaly with coronary a rtery calcifications. LIVER/GB: Large gallstone is seen within the gallbladder lumen. No space-occupying hepatic lesion. PANCREAS: No pancreatic mass identified. No inflammatory process seen. SPLEEN: No evidence for splenomegaly. No intrasplenic lesions seen. ADRENALS: Within which right adrenal adenoma measuring 2.7 cm. No evidence for thickening. KIDNEYS: No evidence for renal mass. No nephrolithiasis. No hydronephrosis. BOWEL: Appendix has a normal appearance. No evidence of bowel obstruction. No inflammatory process. Lymph nodes: No evidence for adenopathy greater than 1 cm. Abdominal aorta: Atheromatous changes seen. Right common iliac artery aneurysm measuring 3 cm. Genital organs: Prostate megaly. Other: No significant abnormality. IMPRESSION: 1. Cholelithiasis. 2. Right common iliac artery aneurysm.
== END | disposition home or self-care (01) ==
LOC: RADCTMAIN 10:10
PROVIDERS: ATTEND Family Medicine
DX: K80.20 Calculus of gallbladder without cholecystitis without obstruction (principal); I72.3 Aneurysm of iliac artery
CPT/HCPCS: 71046; 74176

== ENCOUNTER → 2021-11-08 | Outpatient (CLI) | payer MEDICARE ==
[2021-11-08 09:59] LABS: Partial Thromboplastin Time 22.5 sec (22.0-30.0); Prothrombin Time 10.6 sec (9.0-12.0)
[2021-11-08 14:47] LABS: Basophils # (A) 0.04 X 10*3/uL (0.00-0.10); Basophils % (A) 0.4 %; Eosinophils # (A) 0.23 X 10*3/uL (0.04-0.35); Eosinophils % (A) 2.5 %; HCT 45.1 % (39.6-50.0); HGB 14.9 g/dL (13.0-17.0); Immature Grans, Automated 0.3 %; Lymphocytes # (A) 2.81 X 10*3/uL (0.90-5.00); Lymphocytes % (A) 30.4 %; MCH 29.8 pg (27.0-32.0); MCV 90.2 fL (80.0-97.0); Mean Platelet Volume 10.2 fL (9.5-12.2); Monocytes % (A) 6.5 %; NRBC Per 100 WBC 0 /100 WBCS (0.0-0.0); Neutrophils # (A) 5.54 X 10*3/uL (1.80-7.70); Neutrophils % (A) 59.9 %; Platelet Count 346 X 10*3/uL (140-440); RDW 13.9 % (11.5-14.5); WBC 9.25 X 10*3/uL (4.50-10.00)
[2021-11-08 15:00] LABS: ALT 41 U/L (10-49); AST 39 U/L (14-35); African American GFR (CKD) 67.2 (60.0-200.0); Albumin 4.7 g/dL (3.8-4.9); Albumin/Globulin Ratio 1.51 (1.60-3.17); Alkaline Phosphatase 95 U/L (41-126); BUN/Creat Ratio 14.38 Ratio (12.00-20.00); Blood Urea Nitrogen 18.4 mg/dL (9.0-27.0); Calcium 10.1 mg/dL (8.7-10.3); Carbon Dioxide 22.8 mmol/L (20.0-27.5); Chloride 102 mmol/L (96-109); Chol/HDL Ratio 3.32 Ratio; Globulin 3.1 g/dL (1.6-3.3); Glucose 111 mg/dL (70-110); LDL Cholesterol,Calculated 54.5 mg/dL (0.0-131.0); Magnesium 1.9 mg/dL (1.5-2.4); Non-African American GFR(CKD) 57.9 (60.0-200.0); Potassium 3.4 mmol/L (3.5-5.5); Sodium 143 mmol/L (135-145); Total Protein 7.7 g/dL (6.2-8.2)
[2021-11-08 15:31] LABS: Hepatitis A Antibody IgM Nonreactive (Nonreactive); Hepatitis B Core IgM Nonreactive (Nonreactive); Hepatitis B Surface Antigen Nonreactive (Nonreactive); Hepatitis C IgG Antibody Nonreactive (Nonreactive)
[2021-11-08 19:13] LABS: Appearance,Urine Clear (Clear); Bilirubin,Urine Negative (Negative); Blood,Urine Negative (Negative); Color,Urine Dark Yellow (Yellow); Ketones,Urine Trace mg/dL (Negative); Nitrite,Urine Negative (Negative); PH, Urine 5.5 (5.0-8.0); Specific Gravity,Urine 1.024 (1.001-1.030)
--- NOTE | 2021-11-13 09:52 | US ---
EXAMINATION TYPE: US vein mapping BILAT DATE OF EXAM: 11/08/2021 11:39 AM COMPARISON: NONE CLINICAL HISTORY: I71.2 Thoracic aortic aneurysm, without rupture. PREOP SIDE PERFORMED: Bilateral TECHNIQUE: Lower extremity saphenous vein is examined and measured utilizing real time linear array sonography. Patient History: Heart Disease: Yes Previous DVT: No Vascular Surgery: No Discoloration: No Paralysis: No Varicosities: No Edema: No DUPLEX FINDINGS: Greater Saphenous: Color flow seen Measurements in mm: Right Greater Saphenous: Groin: 7.1 x 6.9 mm High Thigh: 5.2 x 4.6 mm Mid Thigh: 2.9 x 2.6 mm Above Knee: 3.8 x 2.7 mm Knee: 3.3 x 2.5 mm Below Knee: 2.1 x 1.8 mm Mid Calf: 2.2 x 1.9 mm At Ankle: 2.5 x 2.2 mm Left Greater Saphenous: Groin: 6.0 x 5.3 mm High Thigh: 5.8 x 4.9 mm Mid Thigh: 3.8 x 3.6 mm Above Knee: 3.4 x 3.3 mm Knee: 3.3 x 3.1 mm Below Knee: 3.9 x 2.6 mm Mid Calf: 2.8 x 1.5 mm At Ankle: 3.2 x 2.3 mm IMPRESSION: 1. Bilateral GSV measurements listed above. 2. Performing surgeon to determine viability as conduit.
== END | disposition home or self-care (01) ==
LOC: LABWHC1 10:05
PROVIDERS: ATTEND Thoracic Surgery (Cardiothoracic Vascular Surgery)
DX: I71.2 Thoracic aortic aneurysm, without rupture (principal); I45.10 Unspecified right bundle-branch block; I49.1 Atrial premature depolarization; R94.31 Abnormal electrocardiogram [ECG] [EKG]
CPT/HCPCS: 36415; 80053; 80061; 80074; 81001; 83036; 83735; 85025; 85610; 85730; 87070; 87086; 93005; 93970

== ENCOUNTER → 2021-11-08 | Outpatient (CLI) | payer MEDICARE ==
[2021-11-09 08:16] LABS: T4, Free (Free Thyroxine) 1.56 ng/dL (0.800-1.800)
== END | disposition home or self-care (01) ==
LOC: LABWHC1 10:13
PROVIDERS: ATTEND Nurse Practitioner Adult Health
DX: E11.9 Type 2 diabetes mellitus without complications (principal); R97.20 Elevated prostate specific antigen [PSA]
CPT/HCPCS: 36415; 82150; 83690; 84153; 84439; 84443

== ENCOUNTER 2022-01-17 11:01 | Observation (INO) | payer MEDICARE ==
[2022-01-17] MEDS ORDERED: SODIUM CHLORIDE 0.9% 1,000 ML IV STA (12:05)
[2022-01-17] MEDS ORDERED: ONDANSETRON 4 MG/2 ML VIAL IVP STA (12:05)
--- NOTE | 2022-01-17 12:12 | ED ---
Abdominal Pain HPI - General Chief Complaint: Abdominal Pain Stated Complaint: Right side pain, not eating Time Seen by Provider: 01/17/22 11:44 Source: patient, family, RN notes reviewed Mode of arrival: wheelchair - History of Present Illness Initial Comments: Patient is a 66 year old male presenting to the ER with a chief complaint of right flank pain. Patient reports this has been occurring for about a week. He rates his pain 4/10 laying still and a 9/10 when moving, twisting or taking deep breaths/coughing. He endorses associated nausea but denies vomiting. Patient reports not being able to eat (solid or liquids) for the past 5 days. Patient states he was here about one month ago and received a CT which showed a benign mass on his right kidney. He denies known fevers. He admits to chills and nightsweats. Patient denies shortness of breath, chest pain/palpitations, dysuria or change in bowel habits. - Related Data Home Medications Medication Instructions Recorded Confirmed Clopidogrel [Plavix] 75 mg PO DAILY 04/02/17 01/17/22 hydrALAZINE HCL [Apresoline] 100 mg PO BID 08/11/19 01/17/22 metFORMIN HCL 500 mg PO BID 08/11/19 01/17/22 Losartan Potassium 100 mg PO DAILY 04/04/21 01/17/22 Potassium Chloride [Klor-Con M20] 20 meq PO BID 10/11/21 01/17/22 Previous Rx's Medication Instructions Recorded Aspirin 81 mg PO DAILY #302 chew 03/17/17 Atorvastatin [Lipitor] 40 mg PO HS #30 tab 03/17/17 Spironolactone [Aldactone] 25 mg PO DAILY 30 Days #30 tab 04/06/21 Allergies Allergy/AdvReac Type Severity Reaction Status Date / Time Penicillins Allergy Unknown Unknown Verified 01/17/22 13:27 Childhood amlodipine [From Lotrel] AdvReac ITCHING/SWE Verified 01/17/22 13:27 LLING benazepril [From Lotrel] AdvReac ITCHING/SWE Verified 01/17/22 13:27 LLING Review of Systems ROS Statement: Those systems with pertinent positive or pertinent negative responses have been documented in the HPI. ROS Other: All systems not noted in ROS Statement are negative. Past Medical History Past Medical History: Coronary Artery Disease (CAD), Cancer, Heart Failure, Hypertension, Myocardial Infarction ([place]), Osteoarthritis (OA), Prostate Disorder, Vascular Disorder Additional Past Medical History / Comment(s): Covid + Dr. Astudillo's office on 02/17/21 and had mononucal antibodies 02/08/21, NIDDM type II, neuropathy bilateral feet, SANJU with Cpap, R ear basal cell skin cancer/removed, BPH, elevate PSA, PVD Last Myocardial Infarction Date:: 08/11/19 History of Any Multi-Drug Resistant Organisms: None Reported Past Surgical History: Heart Catheterization, Heart Catheterization With Stent, Joint Replacement, Orthopedic Surgery Additional Past Surgical History / Comment(s): PCI with a total of 7 stents, bilateral knee ACLs, total L knee arthroplasty, R knee arthroscopy, bilateral surgery on elbows, R ear cancer/reconstructive surgery. Past Anesthesia/Blood Transfusion Reactions: No Reported Reaction Date of Last Stent Placement:: 2017 Past Psychological History: No Psychological Hx Reported Smoking Status: Former smoker Past Alcohol Use History: Rare Past Drug Use History: None Reported - Past Family History Father Family Medical History: Dementia Additional Family Medical History / Comment(s): Father is . Mother Family Medical History: Cancer Additional Family Medical History / Comment(s): MOTHER OF CANCER-FOUND IN LIVER-PRIMARY NEVER KNOWN. General Exam General appearance: alert, in no apparent distress Head exam: Present: atraumatic, normocephalic, normal inspection Eye exam: Present: normal appearance, PERRL, EOMI. Absent: scleral icterus, conjunctival injection, periorbital swelling ENT exam: Present: normal exam, mucous membranes moist Neck exam: Present: normal inspection. Absent: tenderness, meningismus, lymphadenopathy Respiratory exam: Present: normal lung sounds bilaterally. Absent: respiratory distress, wheezes, rales, rhonchi, stridor Cardiovascular Exam: Present: regular rate, normal rhythm, normal heart sounds. Absent: systolic murmur, diastolic murmur, rubs, gallop, clicks GI/Abdominal exam: Present: soft, normal bowel sounds Extremities exam: Present: normal inspection, full ROM, normal capillary refill. Absent: tenderness, pedal edema, joint swelling, calf tenderness Back exam: Present: normal inspection, full ROM, tenderness (right flank to palpation) Neurological exam: Present: alert, oriented X3, CN II-XII intact Skin exam: Present: warm, dry, intact, normal color. Absent: rash Course Vital Signs 01/17/22 11:33 Temperature 97.8 F Pulse Rate 62 Respiratory 18 Rate Blood Pressure 97/74 O2 Sat by Pulse 97 Oximetry Medical Decision Making - Medical Decision Making Patient CT is read shows evidence of inflammatory changes, possible mesenteric adenitis normal appendix, cholelithiasis patient's labs show of his acute kidney injury, creatinine 2.4 up from baseline. Patient is dehydrated patient be admitted for IV fluid hydration, possible surgery evaluation - Lab Data Result diagrams: 01/17/22 12:10 01/17/22 12:10 Lab Results 01/17/22 01/17/22 01/17/22 Range/Units 12:10 12:10 12:10 WBC 9.8 (3.8-10.6) k/uL RBC 4.85 (4.30-5.90) m/uL Hgb 14.7 (13.0-17.5) gm/dL Hct 42.7 (39.0-53.0) % MCV 88.1 (80.0-100.0) fL MCH 30.3 (25.0-35.0) pg MCHC 34.4 (31.0-37.0) g/dL RDW 14.4 (11.5-15.5) % Plt Count 296 (150-450) k/uL MPV 8.9 Neutrophils % 58 % Lymphocytes % 27 % Monocytes % 6 % Eosinophils % 5 % Basophils % 1 % Neutrophils # 5.7 (1.3-7.7) k/uL Lymphocytes # 2.7 (1.0-4.8) k/uL Monocytes # 0.6 (0-1.0) k/uL Eosinophils # 0.5 (0-0.7) k/uL Basophils # 0.1 (0-0.2) k/uL Sodium 140 (137-145) mmol/L Potassium 3.4 L (3.5-5.1) mmol/L Chloride 101 (98-107) mmol/L Carbon Dioxide 28 (22-30) mmol/L Anion Gap 11 mmol/L BUN 36 H (9-20) mg/dL Creatinine 2.47 H (0.66-1.25) mg/dL Est GFR (CKD-EPI)AfAm 30 (>60 ml/min/1.73 sqM) Est GFR (CKD-EPI)NonAf 26 (>60 ml/min/1.73 sqM) Glucose 122 H (74-99) mg/dL Plasma Lactic Acid Mike 2.0 (0.7-2.0) mmol/L Calcium 9.1 (8.4-10.2) mg/dL Total Bilirubin 1.1 (0.2-1.3) mg/dL AST 43 (17-59) U/L ALT 37 (4-49) U/L Alkaline Phosphatase 80 (38-126) U/L Total Protein 7.0 (6.3-8.2) g/dL Albumin 4.4 (3.5-5.0) g/dL Lipase 143 (23-300) U/L Disposition Clinical Impression: Acute renal failure, Mesenteric adenitis, Dehydration Disposition: ADMITTED IP TO THIS [facility] Condition: Fair Referrals: Bryce Astudillo MD [Primary Care Provider] - 1-2 days Time of Disposition: 14:17
[2022-01-17 12:18] LABS: Basophils # (A) 0.1 k/uL (0-0.2); Basophils % (A) 1 %; Eosinophils # (A) 0.5 k/uL (0-0.7); Eosinophils % (A) 5 %; HCT 42.7 % (39.0-53.0); HGB 14.7 gm/dL (13.0-17.5); Lymphocytes # (A) 2.7 k/uL (1.0-4.8); Lymphocytes % (A) 27 %; MCH 30.3 pg (25.0-35.0); MCHC 34.4 g/dL (31.0-37.0); MCV 88.1 fL (80.0-100.0); Mean Platelet Volume 8.9; Monocytes # (A) 0.6 k/uL (0-1.0); Monocytes % (A) 6 %; Neutrophils # (A) 5.7 k/uL (1.3-7.7); Neutrophils % (A) 58 %; Platelet Count 296 k/uL (150-450); RBC 4.85 m/uL (4.30-5.90); RDW 14.4 % (11.5-15.5); WBC 9.8 k/uL (3.8-10.6)
[2022-01-17 12:29] LABS: Albumin 4.4 g/dL (3.5-5.0); Calcium 9.1 mg/dL (8.4-10.2); Potassium 3.4 mmol/L (3.5-5.1); Total Bilirubin 1.1 mg/dL (0.2-1.3)
--- NOTE | 2022-01-17 14:23 | CT ---
EXAMINATION TYPE: CT abdomen pelvis wo con CT DLP: 1796.4 mGycm, Automated exposure control for dose reduction was used. DATE OF EXAM: 01/17/2022 2:08 PM COMPARISON: CT abdomen pelvis most recent from 11/08/2021. CLINICAL INDICATION:Male, 66 years old with history of pain; Right sided flank pain and nausea x1 wee k. TECHNIQUE: Standard CT of the abdomen and pelvis without IV or oral contrast. Lack of IV or oral co ntrast limits evaluation of solid and hollow organ viscera. Coronal and sagittal reformats were perfo rmed. FINDINGS: LOWER CHEST: Right lower lobe subsegmental atelectasis. Coronary artery calcifications. ABDOMEN LIVER: Unremarkable noncontrast appearance. GALLBLADDER AND BILE DUCTS: Redemonstration of large calcified gallstone within the gallbladder lumen measuring up to 3 cm. No surrounding inflammatory changes. No biliary ductal dilatation. PANCREAS: Unremarkable noncontrast appearance. SPLEEN: Unremarkable noncontrast appearance. ADRENAL GLANDS: Unremarkable noncontrast appearance of the left adrenal gland. Stable right adrenal g land 3.4 cm nodule consistent with a benign lipid rich adenoma.. KIDNEYS AND URETERS: No evidence of hydronephrosis or renal calculus. No perinephric fat stranding. N o ureteral calculi. PELVIS BLADDER: Unremarkable REPRODUCTIVE: Prostate is enlarged in size measuring 5.5 cm in transverse dimension. This indents upo n the urinary bladder base. ABDOMEN & PELVIS STOMACH AND BOWEL: Stomach and duodenum are unremarkable. Distal colonic diverticulosis without evide nce for acute diverticulitis. The appendix is within normal limits. No evidence of bowel obstruction. PERITONEUM: No evidence of pneumoperitoneum or free fluid. There is some fat stranding with prominent lymph nodes within the right lower quadrant measuring up to 8 mm short axis. VASCULATURE: Moderate atherosclerotic calcifications are present throughout the abdominal aorta and i ts branches. No evidence of aortic aneurysm. Stable right common iliac artery aneurysm measuring up t o 2.4 cm. MUSCULOSKELETAL: No acute osseous abnormalities. Degenerative changes of the visualized spine most pr onounced at L4-L5 with disc space narrowing, vacuum disc disease, endplate sclerosis, and anterior os teophyte formation. LYMPH NODES: No retroperitoneal lymphadenopathy. No inguinal lymphadenopathy. SOFT TISSUE/ABDOMINAL WALL: Small fat filled hernia. IMPRESSION: 1. There is some stranding with prominent lymph nodes demonstrated within the right lower quadrant a djacent to the cecum. The appendix is unremarkable. Findings may relate to infectious/inflammatory et iology however there is no bowel wall thickening. Mesenteric adenitis is also in the differential how ever this is more common in adolescents. 2. Colonic diverticulosis without evidence for acute diverticulitis. 3. Cholelithiasis. 4. Stable right adrenal adenoma. 5. Stable right common iliac artery aneurysm.
[2022-01-17] MEDS ORDERED: HYDROmorphone 0.5 MG/0.5 ML SYRINGE IVP STA (14:33)
[2022-01-17] MEDS ORDERED: ACETAMINOPHEN TAB 325 MG TAB PO PRN (14:45)
[2022-01-17] MEDS ORDERED: NALOXONE 0.4 MG/ML 1 ML VIAL IV PRN (14:45)
[2022-01-17] MEDS ORDERED: HYDROmorphone 0.5 MG/0.5 ML SYRINGE IVP PRN (14:45)
[2022-01-17] MEDS ORDERED: ONDANSETRON 4 MG/2 ML VIAL IVP PRN (14:45)
[2022-01-17] MEDS: SODIUM CHLORIDE 0.9% 1,000 ML IV SCH (15:13)
[2022-01-17 18:26] LABS: Appearance,Urine Clear (Clear); Bilirubin,Urine Negative (Negative); Blood,Urine Negative (Negative); Color,Urine Yellow; Glucose,Urine (UA) Negative (Negative); Hyaline Casts,Urine 8 /lpf (0-2); Ketones,Urine Negative (Negative); Leukocyte Esterase,Urine Negative (Negative); Mucus,Urine Rare /hpf; Nitrite,Urine Negative (Negative); PH, Urine 5.5 (5.0-8.0); Protein,Urine 1+ (Negative); RBC,Urine 1 /hpf (0-5); Specific Gravity,Urine 1.016 (1.001-1.035); Squamous Epithelial Cell,Urine <1 /hpf (0-4); Urobilinogen,Urine <2.0 mg/dL (<2.0); WBC,Urine 3 /hpf (0-5)
[2022-01-17] MEDS ORDERED: MELATONIN 3 MG TABLET PO PRN (18:28)
[2022-01-17] MEDS ORDERED: bisacodyL 5 MG TABLET.DR PO PRN (18:28)
[2022-01-17] MEDS ORDERED: CALCIUM CARBONATE 500 MG CHEWABLE PO PRN (18:28)
[2022-01-17 18:29] LABS: Glucose,Whole Blood 122 mg/dL (70-110)
[2022-01-17] MEDS ORDERED: SODIUM CHLORIDE 0.9% 500 ML 500 ML IV ONE (18:30)
[2022-01-17] MEDS ORDERED: POTASSIUM CHLORIDE ER 20 MEQ TAB.ER PO STA (18:35)
[2022-01-17] MEDS ORDERED: DEXTROSE 50% SYRINGE 50 ML IVP PRN ×2 (18:38)
--- NOTE | 2022-01-17 18:38 | P.HPIM ---
History of Present Illness H&P Date: 01/17/22 Patient is a 66-year-old male with high diastolic congestive heart failure ejection fraction 55-60%, hypertension, coronary artery disease with prior myocardial infarction. Multiple PCI, diabetes mellitus type 2 with neuropathy, and BPH who presented to the ER with complaints of abdominal pain. On arrival to the ER his vital signs were within normal limits. Blood pressure was on the lower side at 97/74. Initial laboratory analysis was remarkable for potassium of 3.4, BUN 36, and creatinine 2.47. He was started on IV fluids. Imaging: CT abdomen and pelvis: Some stranding with prominent lymph nodes in the right lower quadrant, infectious versus inflammatory versus mesenteric adenitis, cholelithiasis, stable right adrenal adenoma, stable right common iliac artery aneurysm, colonic diverticulosis without evidence of diverticulitis Patient seen and examined at bedside. He reports that for the last week he has been having some right-sided abdominal pain. Has some radiation across the chest. It has been better when he is laying on his right sided worse when he is laying on his left side. He does report nausea. He also reports abnormal taste everything tasting like metal. He has been eating and drinking very little. He does not report much vomiting but states it's due to low small amounts of food intake. He reports his lower extremity edema is much better than usual. He has felt very weak and fatigued. Today he came into see couldn't even get off the couch. He has been urinating into a pickle jar. Pertinent positives and negatives as discussed in HPI, a complete review of systems was performed and all other systems are negative. Vital signs reviewed General: nontoxic, no distress, appears at stated age, obese Derm: warm, dry Head: atraumatic, normocephalic, symmetric Eyes: EOMI, no lid lag, anicteric sclera, pupils equal round reactive to light ENT: Nose and ears atraumatic, + thrush, no pharyngeal erythema Neck: No thyromegaly, no cervical lymphadenopathy, trachea midline, supple Mouth: no lip lesion, mucus membranes moist Cardiovascular: S1S2 reg, no murmur, positive posterior tibial pulse bilateral, no edema, capillary refill less than 2 seconds Lungs: clear to auscultation bilateral, no rhonchi, no rales, no wheeze, no accessory muscle use Abdominal: soft, tender to palpation right upper quadrant, no guarding, no appreciable organomegaly, normal bowel sounds Ext: no gross muscle atrophy, muscle strength 5 out of 5 in all 4 extremities, no contractures Neuro: CN II-XII grossly intact, light touch intact all 4 extremities, finger to nose within normal limits, Psych: Alert, oriented, appropriate affect Assessment/Plan: Right sided abdominal pain Thrush ELOY due to dehydration -Pain control, antiemetics -Check gallbladder ultrasound -Nystatin swish and swallow -IV fluids -Repeat renal function in a.m. -Check post void residual -No signs of hydronephrosis on computed tomography scan -Avoid nephrotoxic agents, hold losartan, aldactone and metformin Diabetes mellitus type 2 with neuropathy -Hold metformin -Check A1c -Sliding-scale insulin -Follow blood sugars SANJU with CPAP use -CPAP use from home Obesity, BMI 36.2 -Outpatient structured weight loss Chronic: Chronic diastolic heart failure with ejection fraction 50% Hypertension Coronary artery disease The patient is admitted with an anticipated less than 2 midnight stay for evaluation of abdominal pain and ELOY. Surrogate decision-maker: CODE STATUS:full DVT prophylaxis: lovenox Discussed with: patient, nursing, ED provider Anticipated discharge date: in 1-[address]: home A total of [35] minutes was spent on the care of this complex patient more than 50% of the time was spent in counseling and care coordination. Past Medical History Past Medical History: Coronary Artery Disease (CAD), Cancer, Heart Failure, Hypertension, Myocardial Infarction ([place]), Osteoarthritis (OA), Prostate Disorder, Vascular Disorder Additional Past Medical History / Comment(s): Covid + Dr. Astudillo's office on 02/17/21 and had mononucal antibodies 02/08/21, NIDDM type II, neuropathy bilateral feet, SANJU with Cpap, R ear basal cell skin cancer/removed, BPH, elevate PSA, PVD Last Myocardial Infarction Date:: 08/11/19 History of Any Multi-Drug Resistant Organisms: None Reported Past Surgical History: Heart Catheterization, Heart Catheterization With Stent, Joint Replacement, Orthopedic Surgery Additional Past Surgical History / Comment(s): PCI with a total of 7 stents, bilateral knee ACLs, total L knee arthroplasty, R knee arthroscopy, bilateral surgery on elbows, R ear cancer/reconstructive surgery. Past Anesthesia/Blood Transfusion Reactions: No Reported Reaction Date of Last Stent Placement:: 2018 Past Psychological History: No Psychological Hx Reported Smoking Status: Former smoker Past Alcohol Use History: Rare Past Drug Use History: None Reported - Past Family History Father Family Medical History: Dementia Additional Family Medical History / Comment(s): Father is . Mother Family Medical History: Cancer Additional Family Medical History / Comment(s): MOTHER OF CANCER-FOUND IN LIVER-PRIMARY NEVER KNOWN. Medications and Allergies Home Medications Medication Instructions Recorded Confirmed Type Aspirin 81 mg PO DAILY #302 chew 03/17/17 01/17/22 Rx Atorvastatin [Lipitor] 40 mg PO HS #30 tab 03/17/17 01/17/22 Rx Clopidogrel [Plavix] 75 mg PO DAILY 04/02/17 01/17/22 History hydrALAZINE HCL [Apresoline] 100 mg PO BID 08/11/19 01/17/22 History metFORMIN HCL 500 mg PO BID 08/11/19 01/17/22 History Losartan Potassium 100 mg PO DAILY 04/04/21 01/17/22 History Spironolactone [Aldactone] 25 mg PO DAILY 30 Days #30 tab 04/06/21 01/17/22 Rx Potassium Chloride [Klor-Con M20] 20 meq PO BID 10/11/21 01/17/22 History Allergies Allergy/AdvReac Type Severity Reaction Status Date / Time Penicillins Allergy Unknown Unknown Verified 01/17/22 13:27 Childhood amlodipine [From Lotrel] AdvReac ITCHING/SWE Verified 01/17/22 13:27 LLING benazepril [From Lotrel] AdvReac ITCHING/SWE Verified 01/17/22 13:27 LLING Physical Exam Osteopathic Statement: *. No significant issues noted on an osteopathic structural exam other than those noted in the History and Physical/Consult. Vitals: Vital Signs Temp Pulse Pulse Resp BP BP Pulse Ox 01/17/22 18:23 97.9 F 75 18 115/76 95 01/17/22 18:11 98.8 F 89 18 111/86 98 01/17/22 11:33 97.8 F 62 18 97/74 97 Intake and Output 01/17/22 01/17/22 01/17/22 06:59 14:59 22:59 Other: Weight 138.346 kg Results CBC & Chem 7: 01/17/22 12:10 01/17/22 12:10 Labs: Abnormal Lab Results - Last 24 Hours (Table) 01/17/22 01/17/22 01/17/22 Range/Units 12:10 18:14 18:28 Potassium 3.4 L (3.5-5.1) mmol/L BUN 36 H (9-20) mg/dL Creatinine 2.47 H (0.66-1.25) mg/dL Glucose 122 H (74-99) mg/dL POC Glucose (mg/dL) 122 H (70-110) mg/dL Urine Protein 1+ H (Negative) Hyaline Casts 8 H (0-2) /lpf Urine Mucus Rare H (None) /hpf
[2022-01-17] MEDS: INSULIN ASPART (NovoLOG) 100 UNIT/ML VIAL SQ SCH (20:51)
[2022-01-17 20:53] LABS: Glucose,Whole Blood 131 mg/dL (70-110)
[2022-01-17] MEDS: NYSTATIN 100,000 UNIT/ML SUSP 500,000 UNIT/5 ML CUP PO SCH ×2 (20:55→20:58)
[2022-01-17] MEDS: HYDROcodone/APAP 5-325MG 1 EACH TAB PO PRN (20:55)
[2022-01-17] MEDS: hydrALAZINE HCL 50 MG TAB PO SCH (20:56)
[2022-01-18] MEDS: SODIUM CHLORIDE 0.9% 1,000 ML IV SCH ×3 (03:24→21:07)
[2022-01-18 06:25] LABS: HCT 37.7 % (39.0-53.0); HGB 12.9 gm/dL (13.0-17.5); MCH 30.7 pg (25.0-35.0); MCHC 34.3 g/dL (31.0-37.0); MCV 89.6 fL (80.0-100.0); Mean Platelet Volume 8.5; Platelet Count 259 k/uL (150-450); RBC 4.21 m/uL (4.30-5.90); RDW 14.3 % (11.5-15.5); WBC 7.4 k/uL (3.8-10.6)
[2022-01-18] MEDS: INSULIN ASPART (NovoLOG) 100 UNIT/ML VIAL SQ SCH ×4 (06:29→20:30)
[2022-01-18 06:30] LABS: Glucose,Whole Blood 97 mg/dL (70-110)
[2022-01-18 06:37] LABS: ALT 32 U/L (4-49); AST 34 U/L (17-59); African American GFR (CKD) 37 (>60 ml/min/1.73 sqM); Albumin 3.6 g/dL (3.5-5.0); Albumin/Globulin Ratio 1.6; Alkaline Phosphatase 64 U/L (38-126); Anion Gap 8 mmol/L; Blood Urea Nitrogen 35 mg/dL (9-20); Calcium 8.2 mg/dL (8.4-10.2); Carbon Dioxide 27 mmol/L (22-30); Chloride 106 mmol/L (98-107); Globulin 2.3 g/dL; Glucose 99 mg/dL (74-99); Non-African American GFR(CKD) 32 (>60 ml/min/1.73 sqM); Phosphorus 3.3 mg/dL (2.5-4.5); Sodium 141 mmol/L (137-145); Total Bilirubin 0.9 mg/dL (0.2-1.3); Total Protein 5.9 g/dL (6.3-8.2)
[2022-01-18] MEDS ORDERED: POTASSIUM CHLORIDE ER 20 MEQ TAB.ER PO STA (08:21)
[2022-01-18] MEDS ORDERED: CLOPIDOGREL 75 MG TAB PO SCH (09:00)
--- NOTE | 2022-01-18 09:12 | US ---
EXAMINATION TYPE: US gallbladder DATE OF EXAM: 01/18/2022 COMPARISON: CT CLINICAL HISTORY: pain. Pain x 9 days. Hx gallstone. TECHNIQUE: Multiple sonographic images of the right upper quadrant are obtained. 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 Pancreas: Not well seen. Liver: Appears very coarse with increased attenuation. Measures upper limits of normal. Gallbladder: Hyperechoic focus with shadowing seen within the gallbladder: 1.5 x 1.5 x 2.2 cm. Wall appears thickened Evidence for sonographic Barrett's sign: No CBD: Obscured. Right Kidney: Appears enlarged. Anechoic area seen medially: 1.2 x 1.0 x 1.0 cm. IMPRESSION: 1. Hepatic steatosis. 2. Cholelithiasis with mild gallbladder wall thickening. No pericholecystic fluid visualized at this time.
[2022-01-18] MEDS ORDERED: POTASSIUM BICARBONATE/CIT AC 20 MEQ TABLET.EFF PO ONE (09:30)
[2022-01-18] MEDS: PANTOPRAZOLE 40 MG/10 ML VIAL IV SCH (10:45)
[2022-01-18] MEDS: ENOXAPARIN 40 MG/0.4 ML SYRINGE SQ SCH (10:45)
[2022-01-18] MEDS: hydrALAZINE HCL 50 MG TAB PO SCH ×2 (10:46→21:07)
[2022-01-18] MEDS: ASPIRIN 81 MG PO SCH (10:46)
[2022-01-18] MEDS: NYSTATIN 100,000 UNIT/ML SUSP 500,000 UNIT/5 ML CUP PO SCH ×4 (10:46→21:06)
[2022-01-18 12:44] LABS: Glucose,Whole Blood 101 mg/dL (70-110)
[2022-01-18] MEDS: HYDROcodone/APAP 5-325MG 1 EACH TAB PO PRN (13:21)
--- NOTE | 2022-01-18 14:13 | P.PN ---
Subjective Progress Note Date: 01/18/22 Patient is a 66-year-old male with high diastolic congestive heart failure ejection fraction 55-60%, hypertension, coronary artery disease with prior myocardial infarction. Multiple PCI, diabetes mellitus type 2 with neuropathy, and BPH who presented to the ER with complaints of abdominal pain. On arrival to the ER his vital signs were within normal limits. Blood pressure was on the lower side at 97/74. Initial laboratory analysis was remarkable for potassium of 3.4, BUN 36, and creatinine 2.47. He was started on IV fluids. Imaging: CT abdomen and pelvis: Some stranding with prominent lymph nodes in the right lower quadrant, infectious versus inflammatory versus mesenteric adenitis, cholelithiasis, stable right adrenal adenoma, stable right common iliac artery aneurysm, colonic diverticulosis without evidence of diverticulitis Bladder ultrasound: Cholelithiasis with wall thickening Patient seen and examined at bedside. He continues to have some intermittent right-sided abdominal pain. He is feeling hungry. He denies any current nausea or vomiting. We discussed that he has gallstones with gallbladder wall thickening and that surgery will be consulted. General: nontoxic, no distress, appears at stated age Derm: warm, dry Head: atraumatic, normocephalic, symmetric Eyes: EOMI, no lid lag, anicteric sclera Mouth: no lip lesion, mucus membranes moist Cardiovascular: S1S2 reg, no murmur, positive posterior tibial pulse bilateral, Lungs: CTA bilateral, no rhonchi, no rales , no accessory muscle use Abdominal: soft, tender to palpation right upper quadrant, no guarding, no appreciable organomegaly Ext: no gross muscle atrophy, no edema, no contractures Neuro: CN II-XI grossly intact, no focal neuro deficits Psych: Alert, oriented, appropriate affect Assessment/Plan: Symptomatic cholelithiasis - surgery recs: plans are for lap nicolas on 01/21/22 -Pain control, antiemetics Thrush -Nystatin swish and swallow ELOY due to dehydration -IV fluids -Repeat renal function in a.m. 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 Objective - Vital Signs Vital signs: Vital Signs Temp 97.6 F 01/18/22 07:35 Pulse 52 L 01/18/22 07:35 Resp 16 01/18/22 07:35 BP 148/76 01/18/22 07:35 Pulse Ox 100 01/18/22 07:35 FiO2 Intake & Output 01/17/22 01/18/22 01/18/22 18:59 06:59 18:59 Weight 138.346 kg Other: Voiding Method Toilet # Voids 2 - Labs CBC & Chem 7: 01/18/22 05:56 01/18/22 05:56 Labs: Abnormal Lab Results - Last 24 Hours (Table) 01/17/22 01/17/22 01/17/22 Range/Units 18:14 18:28 20:51 RBC (4.30-5.90) m/uL Hgb (13.0-17.5) gm/dL Hct (39.0-53.0) % Potassium (3.5-5.1) mmol/L BUN (9-20) mg/dL Creatinine (0.66-1.25) mg/dL POC Glucose (mg/dL) 122 H 131 H (70-110) mg/dL Hemoglobin A1c (0.0-6.0) % Calcium (8.4-10.2) mg/dL Total Protein (6.3-8.2) g/dL Urine Protein 1+ H (Negative) Hyaline Casts 8 H (0-2) /lpf Urine Mucus Rare H (None) /hpf 01/18/22 01/18/22 01/18/22 Range/Units 05:56 05:56 05:56 RBC 4.21 L (4.30-5.90) m/uL Hgb 12.9 L (13.0-17.5) gm/dL Hct 37.7 L (39.0-53.0) % Potassium 3.0 L (3.5-5.1) mmol/L BUN 35 H (9-20) mg/dL Creatinine 2.07 H (0.66-1.25) mg/dL POC Glucose (mg/dL) (70-110) mg/dL Hemoglobin A1c 6.2 H (0.0-6.0) % Calcium 8.2 L (8.4-10.2) mg/dL Total Protein 5.9 L (6.3-8.2) g/dL Urine Protein (Negative) Hyaline Casts (0-2) /lpf Urine Mucus (None) /hpf
--- NOTE | 2022-01-18 14:32 | P.GSCN ---
History of Present Illness Consult date: 01/18/22 History of present illness: CHIEF COMPLAINT: Right-sided abdominal pain HISTORY OF PRESENT ILLNESS: This is a 66-year-old male who presents to the hospital with complaints of right upper abdominal flank pain and nausea 1 week. He denies any vomiting. Reports poor oral intake. Reports feeling feverish with chills. He did have episode of diarrhea. Gallbladder ultrasound had shown evidence of cholelithiasis with mild gallbladder wall thickening. Patient denies any prior abdominal surgeries. He does have a cardiac history with CHF, coronary disease with cardiac stents, myocardial infarction and thoracic aortic aneurysm that is being monitored. Patient denies any urinary symptoms. PAST MEDICAL HISTORY: See belowCoronary Artery Disease (CAD), Cancer, Heart Failure, Hypertension, Myocardial Infarction ([place]), Osteoarthritis (OA), Prostate Disorder, Vascular Disorder PAST SURGICAL HISTORY: See below MEDICATIONS: See below ALLERGIES: See below SOCIAL HISTORY: No illicit drug use. REVIEW OF SYSTEMS: CONSTITUTIONAL: Denies fever or chills. HEENT: Denies blurred vision, vision changes, or eye pain. Denies hemoptysis CARDIOVASCULAR: Denies chest pain or pressure. RESPIRATORY: No shortness of breath. GASTROINTESTINAL: See HPI for pertinent findings HEMATOLOGIC: Denies bleeding disorders. GENITOURINARY: Denies any blood in urine or increased urinary frequency. SKIN: Denies pruitis. Denies rash. PHYSICAL EXAM: VITAL SIGNS: Reviewed GENERAL: Well-developed in no acute distress. HEENT: No sclera icterus. Extraocular movements grossly intact. Moist buccal mucosa. Head is atraumatic, normocephalic. No nasal drainage. ABDOMEN: Soft. Nondistended. Tenderness over the right upper quadrant side and flank NEUROLOGIC: Alert and oriented. Cranial nerves II through XII grossly intact. LABORATORY DATA: WBC is 7.4 Hgb 12.9 platelets 259 Sodium is 141 potassium is 3.0 creatinine 2.07 A1c is 6.2 Total bilirubin 0.9 AST 34 ALT 32 alk phos 64 Lipase 143 IMAGING: Computed tomography scan abdomen and pelvis there is some stranding with prominent lymph nodes demonstrated within the right lower quadrant adjacent to the cecum. The appendix is unremarkable. Findings [place] related to infectious inflammatory etiology however there is no bowel wall thickening. Mesenteric adenitis also on the differential. Chronic diverticulosis without evidence of acute diverticulitis. Cholelithiasis. Sterile stable right adrenal adenoma. S table right common iliac artery aneurysm. Gallbladder ultrasound hepatic steatosis. Cholelithiasis with mild gallbladder wall thickening. No pericholecystic fluid. ASSESSMENT: 1. Symptomatic gallstones 2. Right upper side Abdominal pain with nausea 3. Hypokalemia PLAN: -Patient scheduled for laparoscopic cholecystectomy on 01/21/[address] jenkins -Place patient on clear liquid diet for now -Continue supportive care -Continue to replace potassium -Plavix placed on hold for surgery Thank you for this consultation Physician Urban Planner note has been reviewed by physician. Signing provider agrees with the documented findings, assessment, and plan of care. Past Medical History Past Medical History: Coronary Artery Disease (CAD), Cancer, Heart Failure, Hypertension, Myocardial Infarction ([place]), Osteoarthritis (OA), Prostate Disorde r, Vascular Disorder Additional Past Medical History / Comment(s): Covid + Dr. Astudillo's office on 02/17/21 and had mononucal antibodies 02/08/21, NIDDM type II, neuropathy johnny ateral feet, SANJU with Cpap, R ear basal cell skin cancer/removed, BPH, elevate PSA, PVD, Thoracic Aortic Aneurysm Last Myocardial Infarction Date:: 08/11/19 History of Any Multi-Drug Resistant Organisms: None Reported Past Surgical History: Heart Catheterization, Heart Catheterization With Stent, Joint Replacement, Orthopedic Surgery Additional Past Surgical History / Comment(s): PCI with a total of 7 stents, bilateral knee ACLs, total L knee arthroplasty, R knee arthroscopy, bilateral surgery on elbows, R ear cancer/reconstructive surgery. 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 NOW WORKS FOR [email or web address]. PT IS INDEPENDENT. Smoking Status: Former smoker Past Alcohol Use History: Rare Additional Past Alcohol Use History / Comment(s): PT STARTED SMOKING in 2003 and quit 2007. Smoked less than a pack a day. Past Drug Use History: None Reported - Past Family History Father Family Medical History: Dementia Additional Family Medical History / Comment(s): Father is . Mother Family Medical History: Cancer Additional Family Medical History / Comment(s): MOTHER OF CANCER-FOUND IN LIVER-PRIMARY NEVER KNOWN. Medications and Allergies Home Medications Medication Instructions Recorded Confirmed Type Aspirin 81 mg PO DAILY #302 chew 03/17/17 01/17/22 Rx Atorvastatin [Lipitor] 40 mg PO HS #30 tab 03/17/17 01/17/22 Rx Clopidogrel [Plavix] 75 mg PO DAILY 04/02/17 01/17/22 History hydrALAZINE HCL [Apresoline] 100 mg PO BID 08/11/19 01/17/22 History metFORMIN HCL 500 mg PO BID 08/11/19 01/17/22 History Losartan Potassium 100 mg PO DAILY 04/04/21 01/17/22 History Spironolactone [Aldactone] 25 mg PO DAILY 30 Days #30 tab 04/06/21 01/17/22 Rx Potassium Chloride [Klor-Con M20] 20 meq PO BID 10/11/21 01/17/22 History Allergies Allergy/AdvReac Type Severity Reaction Status Date / Time Penicillins Allergy Unknown Unknown Verified 01/17/22 13:27 Childhood amlodipine [From Lotrel] AdvReac ITCHING/SWE Verified 01/17/22 13:27 LLING benazepril [From Lotrel] AdvReac ITCHING/SWE Verified 01/17/22 13:27 LLING Surgical - Exam Vital Signs Temp Pulse Resp BP Pulse Ox 97.8 F 62 18 97/74 97 01/17/22 11:33 01/17/22 11:33 01/17/22 11:33 01/17/22 11:33 01/17/22 11:33 Results - Labs 01/18/22 05:56 01/18/22 05:56 Abnormal Lab Results - Last 24 Hours (Table) 01/17/22 01/17/22 01/17/22 Range/Units 18:14 18:28 20:51 RBC (4.30-5.90) m/uL Hgb (13.0-17.5) gm/dL Hct (39.0-53.0) % Potassium (3.5-5.1) mmol/L BUN (9-20) mg/dL Creatinine (0.66-1.25) mg/dL POC Glucose (mg/dL) 122 H 131 H (70-110) mg/dL Hemoglobin A1c (0.0-6.0) % Calcium (8.4-10.2) mg/dL Total Protein (6.3-8.2) g/dL Urine Protein 1+ H (Negative) Hyaline Casts 8 H (0-2) /lpf Urine Mucus Rare H (None) /hpf 01/18/22 01/18/22 01/18/22 Range/Units 05:56 05:56 05:56 RBC 4.21 L (4.30-5.90) m/uL Hgb 12.9 L (13.0-17.5) gm/dL Hct 37.7 L (39.0-53.0) % Potassium 3.0 L (3.5-5.1) mmol/L BUN 35 H (9-20) mg/dL Creatinine 2.07 H (0.66-1.25) mg/dL POC Glucose (mg/dL) (70-110) mg/dL Hemoglobin A1c 6.2 H (0.0-6.0) % Calcium 8.2 L (8.4-10.2) mg/dL Total Protein 5.9 L (6.3-8.2) g/dL Urine Protein (Negative) Hyaline Casts (0-2) /lpf Urine Mucus (None) /hpf Diabetes panel 01/18/22 01/18/22 Range/Units 05:56 05:56 Sodium 141 (137-145) mmol/L Potassium 3.0 L (3.5-5.1) mmol/L Chloride 106 (98-107) mmol/L Carbon Dioxide 27 (22-30) mmol/L BUN 35 H (9-20) mg/dL Creatinine 2.07 H (0.66-1.25) mg/dL Glucose 99 (74-99) mg/dL Hemoglobin A1c 6.2 H (0.0-6.0) % Calcium 8.2 L (8.4-10.2) mg/dL AST 34 (17-59) U/L ALT 32 (4-49) U/L Alkaline Phosphatase 64 (38-126) U/L Total Protein 5.9 L (6.3-8.2) g/dL Albumin 3.6 (3.5-5.0) g/dL Calcium panel 01/18/22 Range/Units 05:56 Calcium 8.2 L (8.4-10.2) mg/dL Phosphorus 3.3 (2.5-4.5) mg/dL Albumin 3.6 (3.5-5.0) g/dL Pituitary panel 01/18/22 Range/Units 05:56 Sodium 141 (137-145) mmol/L Potassium 3.0 L (3.5-5.1) mmol/L Chloride 106 (98-107) mmol/L Carbon Dioxide 27 (22-30) mmol/L BUN 35 H (9-20) mg/dL Creatinine 2.07 H (0.66-1.25) mg/dL Glucose 99 (74-99) mg/dL Calcium 8.2 L (8.4-10.2) mg/dL Adrenal panel 01/18/22 Range/Units 05:56 Sodium 141 (137-145) mmol/L Potassium 3.0 L (3.5-5.1) mmol/L Chloride 106 (98-107) mmol/L Carbon Dioxide 27 (22-30) mmol/L BUN 35 H (9-20) mg/dL Creatinine 2.07 H (0.66-1.25) mg/dL Glucose 99 (74-99) mg/dL Calcium 8.2 L (8.4-10.2) mg/dL Total Bilirubin 0.9 (0.2-1.3) mg/dL AST 34 (17-59) U/L ALT 32 (4-49) U/L Alkaline Phosphatase 64 (38-126) U/L Total Protein 5.9 L (6.3-8.2) g/dL Albumin 3.6 (3.5-5.0) g/dL
[2022-01-18 17:24] LABS: Glucose,Whole Blood 109 mg/dL (70-110)
[2022-01-18 20:18] LABS: Glucose,Whole Blood 104 mg/dL (70-110)
[2022-01-19 06:23] LABS: Glucose,Whole Blood 99 mg/dL (70-110)
[2022-01-19] MEDS: INSULIN ASPART (NovoLOG) 100 UNIT/ML VIAL SQ SCH ×4 (06:40→20:55)
[2022-01-19] MEDS: PANTOPRAZOLE 40 MG/10 ML VIAL IV SCH (08:22)
[2022-01-19] MEDS: ASPIRIN 81 MG PO SCH (08:22)
[2022-01-19] MEDS: ENOXAPARIN 40 MG/0.4 ML SYRINGE SQ SCH (08:22)
[2022-01-19] MEDS: hydrALAZINE HCL 50 MG TAB PO SCH ×2 (08:23→20:56)
[2022-01-19] MEDS: NYSTATIN 100,000 UNIT/ML SUSP 500,000 UNIT/5 ML CUP PO SCH ×4 (08:23→20:55)
--- NOTE | 2022-01-19 10:17 | P.PN ---
Progress Note - Text Progress Note Date: 01/19/22 Patient Lidia stable. There is no acute changes. Patient be scheduled for laparoscopic ostectomy on Friday.
--- NOTE | 2022-01-19 11:07 | P.PN ---
Subjective Progress Note Date: 01/19/22 Patient reports improvement in his abdominal pain. He reports that he has not had any further colicky type pain. Current plan is for surgery on Friday. Gen: awake, alert HEENT: normocephalic, atraumatic, good hearing acuity, moist mucous membranes Resp: good air exchange, breathing comfortably with no accessory muscle use CVS: good distal perfusion x 4, GI: soft, NTTP, ND : no SPT, no CVAT, alex catheter not present MSK: Trace pitting edema, no clubbing Neuro: non-focal, moving all extremities Psych: cooperative, euthymic mood Assessment/plan: Symptomatic cholelithiasis - surgery recs: plans are for lap nicolas on 01/21/22 -Pain control, antiemetics Thrush -Nystatin swish and swallow ELOY due to dehydration -IV fluids -Repeat renal function in a.m. 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 Objective - Vital Signs Vital signs: Vital Signs Temp 98 F 01/19/22 07:00 Pulse 57 L 01/19/22 07:00 Resp 18 01/19/22 07:00 BP 130/72 01/19/22 07:00 Pulse Ox 98 01/19/22 07:00 FiO2 Intake & Output 01/18/22 01/19/22 01/19/22 18:59 06:59 18:59 Intake Total 780 1500 Balance 780 1500 Intake: Intake, IV Titration 1500 Amount Sodium Chloride 0.9% 1, 1500 000 ml @ 75 mls/hr IV . [id number] [facility] Rx#:[id number] Oral 780 Other: Voiding Method Toilet # Voids 2 - Labs CBC & Chem 7: 01/18/22 05:56 01/18/22 05:56
[2022-01-19 11:58] LABS: Glucose,Whole Blood 105 mg/dL (70-110)
[2022-01-19 12:47] LABS: HGB 12.1 g/dL (13.0-17.0); MCH 29.7 pg (27.0-32.0); MCHC 32.7 g/dL (32.0-37.0); MCV 90.9 fL (80.0-97.0); NRBC Per 100 WBC 0 /100 WBCS (0.0-0.0); Platelet Count 254 X 10*3/uL (140-440); RBC 4.07 X 10*6/uL (4.40-5.60); WBC 6.87 X 10*3/uL (4.50-10.00)
[2022-01-19] MEDS: SODIUM CHLORIDE 0.9% 1,000 ML IV SCH (14:09)
[2022-01-19 15:15] LABS: African American GFR (CKD) 63.5 (60.0-200.0); Albumin 3.8 g/dL (3.8-4.9); Albumin/Globulin Ratio 1.79 (1.60-3.17); BUN/Creat Ratio 17.31 Ratio (12.00-20.00); Blood Urea Nitrogen 23.2 mg/dL (9.0-27.0); Globulin 2.1 g/dL (1.6-3.3); Magnesium 2.1 mg/dL (1.5-2.4); Non-African American GFR(CKD) 54.8 (60.0-200.0); Potassium 3.4 mmol/L (3.5-5.5); Total Bilirubin 0.6 mg/dL (0.30-1.20); Total Protein 5.9 g/dL (6.2-8.2)
[2022-01-19 16:49] LABS: Glucose,Whole Blood 118 mg/dL (70-110)
[2022-01-19 20:52] LABS: Glucose,Whole Blood 128 mg/dL (70-110)
[2022-01-20] MEDS: SODIUM CHLORIDE 0.9% 1,000 ML IV SCH ×2 (02:40→14:29)
[2022-01-20] MEDS: INSULIN ASPART (NovoLOG) 100 UNIT/ML VIAL SQ SCH ×4 (06:13→20:58)
[2022-01-20 06:15] LABS: Glucose,Whole Blood 110 mg/dL (70-110)
[2022-01-20] MEDS: ASPIRIN 81 MG PO SCH (07:54)
[2022-01-20] MEDS: hydrALAZINE HCL 50 MG TAB PO SCH ×2 (07:55→21:36)
[2022-01-20] MEDS: NYSTATIN 100,000 UNIT/ML SUSP 500,000 UNIT/5 ML CUP PO SCH ×4 (07:55→21:36)
[2022-01-20] MEDS: ENOXAPARIN 40 MG/0.4 ML SYRINGE SQ SCH (07:55)
[2022-01-20] MEDS: PANTOPRAZOLE 40 MG/10 ML VIAL IV SCH (07:56)
[2022-01-20 11:54] LABS: Glucose,Whole Blood 93 mg/dL (70-110)
--- NOTE | 2022-01-20 12:48 | P.PN ---
Progress Note - Text Progress Note Date: 01/20/22 Patient [place] stable. He still has some complaints of mild right quadrant pain. On exam vital signs are stable. Abdomen soft. Her patiently scheduled for laparoscopic cholecystectomy in the a.m.
--- NOTE | 2022-01-20 13:11 | P.PN ---
Subjective Progress Note Date: 01/20/22 No new complaints today. Gen: awake, alert HEENT: normocephalic, atraumatic, good hearing acuity, moist mucous membranes Resp: good air exchange, breathing comfortably with no accessory muscle use CVS: good distal perfusion x 4, GI: soft, NTTP, ND : no SPT, no CVAT, alex catheter not present MSK: Trace pitting edema, no clubbing Neuro: non-focal, moving all extremities Psych: cooperative, euthymic mood Assessment/plan: Symptomatic cholelithiasis - surgery recs: plans are for lap nicolas on 01/21/22 -Pain control, antiemetics Thrush -Nystatin swish and swallow ELOY due to dehydration -IV fluids -Repeat renal function in a.m. -Post void residual negative -No signs of hydronephrosis on computed tomography scan -Avoid nephrotoxic agents, hold losartan, aldactone and metformin Diabetes mellitus type 2 with neuropathy -Hold metformin - A1c 6.2 -Sliding-scale insulin -Follow blood sugars SANJU with CPAP use -CPAP use from home Obesity, BMI 36.2 -Outpatient structured weight loss Chronic: Chronic diastolic heart failure with ejection fraction 50% Hypertension Coronary artery disease DVT prophylaxis: lovenox Anticipated discharge date: in 1-[address]: home Objective - Vital Signs Vital signs: Vital Signs Temp 98.3 F 01/20/22 12:52 Pulse 57 L 01/20/22 12:52 Resp 18 01/20/22 12:52 BP 133/91 01/20/22 12:52 Pulse Ox 96 01/20/22 12:52 FiO2 Intake & Output 01/19/22 01/20/22 01/20/22 18:59 06:59 18:59 Intake Total 480 1500 118 Balance 480 1500 118 Intake: Intake, IV Titration 1000 Amount Sodium Chloride 0.9% 1, 1000 000 ml @ 75 mls/hr IV . [id number] [facility] Rx#:[id number] Oral 480 500 118 Other: Voiding Method Toilet # Voids 3 - Labs CBC & Chem 7: 01/19/22 07:36 01/19/22 07:36 Labs: Abnormal Lab Results - Last 24 Hours (Table) 01/19/22 01/19/22 01/19/22 Range/Units 07:36 16:47 20:50 Potassium 3.4 L (3.5-5.5) mmol/L Carbon Dioxide 28.0 H (20.0-27.5) mmol/L Est GFR (CKD-EPI)NonAf 54.8 L (60.0-200.0) POC Glucose (mg/dL) 118 H 128 H (70-110) mg/dL Total Protein 5.9 L (6.2-8.2) g/dL
[2022-01-20 16:53] LABS: Glucose,Whole Blood 124 mg/dL (70-110)
[2022-01-20 20:45] LABS: Glucose,Whole Blood 111 mg/dL (70-110)
[2022-01-21] MEDS: SODIUM CHLORIDE 0.9% 1,000 ML IV SCH ×3 (05:22→20:20)
[2022-01-21 06:09] LABS: Glucose,Whole Blood 99 mg/dL (70-110)
[2022-01-21] MEDS: INSULIN ASPART (NovoLOG) 100 UNIT/ML VIAL SQ SCH ×4 (06:21→20:22)
--- NOTE | 2022-01-21 09:09 | P.PN ---
Subjective Progress Note Date: 01/21/22 No new complaints today. Pending lap nicolas in the afternoon. Gen: awake, alert HEENT: normocephalic, atraumatic, good hearing acuity, moist mucous membranes Resp: good air exchange, breathing comfortably with no accessory muscle use CVS: good distal perfusion x 4, GI: soft, NTTP, ND : no SPT, no CVAT, alex catheter not present MSK: Trace pitting edema, no clubbing Neuro: non-focal, moving all extremities Psych: cooperative, euthymic mood Assessment/plan: Symptomatic cholelithiasis - surgery recs: plans are for lap nicolas on 01/21/22 -Pain control, antiemetics Thrush -Nystatin swish and swallow ELOY due to dehydration -IV fluids -Repeat renal function in a.m. -Post void residual negative -No signs of hydronephrosis on computed tomography scan -Avoid nephrotoxic agents, hold losartan, aldactone and metformin Diabetes mellitus type 2 with neuropathy -Hold metformin - A1c 6.2 -Sliding-scale insulin -Follow blood sugars SANJU with CPAP use -CPAP use from home Obesity, BMI 36.2 -Outpatient structured weight loss Chronic: Chronic diastolic heart failure with ejection fraction 50% Hypertension Coronary artery disease DVT prophylaxis: lovenox Anticipated discharge date: in 1-[address]: home Objective - Vital Signs Vital signs: Vital Signs Temp 98.3 F 01/21/22 07:00 Pulse 70 01/21/22 07:00 Resp 22 01/21/22 07:00 BP 180/96 01/21/22 07:00 Pulse Ox 96 01/21/22 07:59 FiO2 21 01/21/22 07:59 Intake & Output 01/20/22 01/21/22 01/21/22 18:59 06:59 18:59 Intake Total 478 Balance 478 Intake: Oral 478 Other: Voiding Method Toilet # Voids 3 2 - Labs CBC & Chem 7: 01/19/22 07:36 01/19/22 07:36 Labs: Abnormal Lab Results - Last 24 Hours (Table) 01/20/22 01/20/22 Range/Units 16:52 20:44 POC Glucose (mg/dL) 124 H 111 H (70-110) mg/dL
[2022-01-21] MEDS ORDERED: IV FLUID CONTINUATION 1,000 ML IV ONE (09:40)
[2022-01-21] MEDS ORDERED: BUPIVACAIN-EPI 0.25%-1:200,000 30 ML VIAL SQ ONE ×2 (09:47→10:18)
[2022-01-21] MEDS: ENOXAPARIN 40 MG/0.4 ML SYRINGE SQ SCH (09:52)
[2022-01-21] MEDS ORDERED: ONDANSETRON 4 MG/2 ML VIAL IVP ONE (09:52)
[2022-01-21] MEDS ORDERED: DEXAMETHASONE SOD PHOSPHATE 4 MG/ML 1 ML VIAL IVP ONE (09:52)
[2022-01-21] MEDS ORDERED: NEOSTIGMINE 1 MG/ML 10 ML VIAL ONE (10:00)
[2022-01-21] MEDS ORDERED: hydrALAZINE HCL 20 MG/ML 1 ML VIAL ONE (10:00)
[2022-01-21] MEDS ORDERED: LIDOCAINE 2% INJ 20 MG/ML (2 ML VIAL) ONE (10:00)
[2022-01-21] MEDS ORDERED: MIDAZOLAM 2 MG/2 ML VIAL ONE (10:00)
[2022-01-21] MEDS ORDERED: GLYCOPYRROLATE 0.2 MG/ML 2 ML VIAL ONE (10:00)
[2022-01-21] MEDS ORDERED: fentaNYL (PF) 50 MCG/ML 2 ML AMP ONE (10:00)
[2022-01-21] MEDS ORDERED: ROCURONIUM 10 MG/ML (5 ML VIAL) IV ONE (10:00)
[2022-01-21] MEDS ORDERED: SUCCINYLCHOLINE CHLORIDE 200 MG/10 ML VIAL IV ONE (10:00)
[2022-01-21] MEDS ORDERED: PROPOFOL 10 MG/ML 20 ML VIAL IV ONE (10:00)
[2022-01-21] MEDS ORDERED: SODIUM CHLORIDE 0.9% 50 ML with ceFAZolin 2,000 MG IV ONE ×2 (10:03)
--- NOTE | 2022-01-21 10:50 | P.OP ---
Date of Procedure: 01/21/22 Preoperative Diagnosis: Cholecystitis Cholelithiasis Postoperative Diagnosis: Cholecystitis Cholelithiasis Procedure(s) Performed: Laparoscopic cholecystectomy Anesthesia: YSABEL Surgeon: Leonel aGrrett Estimated Blood Loss (ml): 5 Pathology: other (Gallbladder) Condition: stable Disposition: PACU Description of Procedure: The patient was placed on the operating table. The patient received a general endotracheal tube anesthesia. The patients abdomen was prepped and draped in the usual sterile fashion. Through an infraumbilical stab incision, the fascia of the anterior abdominal wall was grasped with a pair of Kochers and then the Veress needle was placed in the peritoneal cavity. Position of the Veress needle was confirmed with positive drop test. The abdomen was then insufflated. After adequate insufflation, the 10 mm trocar was placed in the peritoneal cavity. Following this the laparoscope was placed in the peritoneal cavity. The patient was placed in the head-up, right side up position and then a 5 mm trocar was placed in the right lateral and right subcostal position under direct visualization. A 8 mm trocar was placed in the epigastric position. The gallbladder was grasped in the fundus and infundibulum. Traction on the gallbladder was placed in the lateral and the cephalad positions. The triangle of Calot was visualized.. The cystic duct was bluntly dissected until the union of the cystic duct and common bile duct wa s seen. A critical view of safety was achieved. The cystic duct was then divided and sealed with the Harmonic scissors. A PDS Endoloop was then placed throughout the cystic duct stump. The cystic artery divided and sealed with the Harmonic scissors. The gallbladder was then removed from the liver bed using Harmonic scissors. The gallbladder was then extracted through the epigastric port site. Operative field was checked for any bleeding spots and Harmonic scissors was used to coagulate the liver bed. The abdomen was irrigated. The trocars were removed. The skin was closed using interrupted 3-0 Vicryl suture. Dermabond dressing were applied. The patient tolerated the procedure well.
[2022-01-21] MEDS ORDERED: HYDROmorphone 0.5 MG/0.5 ML SYRINGE IVP ONE (11:13)
[2022-01-21] MEDS: HYDROmorphone 1 MG/ML 1 ML SYRINGE IVP PRN ×2 (12:14→17:04)
[2022-01-21] MEDS: PANTOPRAZOLE 40 MG/10 ML VIAL IV SCH (12:14)
[2022-01-21] MEDS: NYSTATIN 100,000 UNIT/ML SUSP 500,000 UNIT/5 ML CUP PO SCH ×4 (12:14→21:02)
[2022-01-21] MEDS: ASPIRIN 81 MG PO SCH (12:14)
[2022-01-21] MEDS: hydrALAZINE HCL 50 MG TAB PO SCH ×2 (12:15→20:20)
[2022-01-21 12:25] LABS: Glucose,Whole Blood 143 mg/dL (70-110)
[2022-01-21] MEDS ORDERED: POTASSIUM CHLORIDE ER 20 MEQ TAB.ER PO STA (12:46)
[2022-01-21 17:40] LABS: Glucose,Whole Blood 158 mg/dL (70-110)
[2022-01-21 20:19] LABS: Glucose,Whole Blood 148 mg/dL (70-110)
[2022-01-22] MEDS: HYDROcodone/APAP 5-325MG 1 EACH TAB PO PRN ×3 (02:18→10:41)
[2022-01-22 06:07] LABS: African American GFR (CKD) 88 (>60 ml/min/1.73 sqM); Anion Gap 8 mmol/L; Blood Urea Nitrogen 13 mg/dL (9-20); Calcium 8.6 mg/dL (8.4-10.2); Carbon Dioxide 26 mmol/L (22-30); Chloride 110 mmol/L (98-107); Glucose 112 mg/dL (74-99); Non-African American GFR(CKD) 77 (>60 ml/min/1.73 sqM); Potassium 3.1 mmol/L (3.5-5.1); Sodium 144 mmol/L (137-145)
[2022-01-22 06:22] LABS: Glucose,Whole Blood 108 mg/dL (70-110)
[2022-01-22] MEDS: INSULIN ASPART (NovoLOG) 100 UNIT/ML VIAL SQ SCH ×2 (06:23→13:00)
[2022-01-22] MEDS ORDERED: POTASSIUM CHLORIDE ER 20 MEQ TAB.ER PO STA (06:46)
[2022-01-22] MEDS: ASPIRIN 81 MG PO SCH (09:02)
[2022-01-22] MEDS: ENOXAPARIN 40 MG/0.4 ML SYRINGE SQ SCH (09:02)
[2022-01-22] MEDS: NYSTATIN 100,000 UNIT/ML SUSP 500,000 UNIT/5 ML CUP PO SCH ×2 (09:02→13:13)
[2022-01-22] MEDS: PANTOPRAZOLE 40 MG/10 ML VIAL IV SCH (09:02)
[2022-01-22] MEDS: hydrALAZINE HCL 50 MG TAB PO SCH (09:02)
[2022-01-22] MEDS ORDERED: TAMSULOSIN 0.4 MG CAP.ER.24H PO STA (11:26)
[2022-01-22 12:07] LABS: Glucose,Whole Blood 93 mg/dL (70-110)
--- NOTE | 2022-01-22 12:47 | P.PN ---
Subjective Progress Note Date: 01/22/22 CHIEF COMPLAINT: Cholecystitis HISTORY OF PRESENT ILLNESS: Patient is postop day #1 status post laparoscopic cholecystectomy. His pain is controlled. He denies any nausea vomiting. He is having flatus. He did have urinary retention earlier and required straight cath. Patient reports that he is urinating better today. Afebrile. Sodium 144 potassium 3.1 creatinine 1.02 PHYSICAL EXAM: VITAL SIGNS: Reviewed. GENERAL: Well-developed in no acute distress. HEENT: No sclera icterus. Extraocular movements grossly intact. Moist buccal mucosa. Head is atraumatic, normocephalic. ABDOMEN: Soft. Nondistended. Nontender. NEUROLOGIC: Alert and oriented. Cranial nerves II through XII grossly intact. ASSESSMENT: 1. Cholecystitis and cholelithiasis status post laparoscopic cholecystectomy 2. Urinary retention 3. Hypokalemia. Potassium replaced PLAN: -Patient can be discharged from surgical standpoint when medically cleared -Flomax added for urinary retention -Patient may need to follow-up with urology as outpatient regarding urinary retention Physician Cat Swamper note has been reviewed by physician. Signing provider agrees with the documented findings, assessment, and plan of care. Objective - Vital Signs Vital signs: Vital Signs Temp 98 F 01/22/22 07:00 Pulse 63 01/22/22 07:00 Resp 20 01/22/22 07:00 BP 166/102 01/22/22 07:00 Pulse Ox 96 01/22/22 07:00 FiO2 21 01/21/22 07:59 Intake & Output 01/21/22 01/22/22 01/22/22 18:59 06:59 18:59 Intake Total 1700 400 240 Output Total 960 200 200 Balance 740 200 40 Weight 138.35 kg Intake: IV 1100 Intake, IV Titration 600 Amount Sodium Chloride 0.9% 1, 600 000 ml @ 75 mls/hr IV . [id number] [facility] Rx#:[id number] Oral 400 240 Output: Urine 950 200 200 Straight 650 Estimated Blood Loss 10 Other: Voiding Method Toilet Urinal # Voids 3 - Labs CBC & Chem 7: 01/19/22 07:36 01/22/22 05:27 Labs: Abnormal Lab Results - Last 24 Hours (Table) 01/21/22 01/21/22 01/22/22 Range/Units 17:38 20:15 05:27 Potassium 3.1 L (3.5-5.1) mmol/L Chloride 110 H (98-107) mmol/L Glucose 112 H (74-99) mg/dL POC Glucose (mg/dL) 158 H 148 H (70-110) mg/dL
--- NOTE | 2022-01-22 13:05 | P.DS ---
Providers Date of admission: 01/17/22 14:50 Expected date of discharge: 01/22/22 Attending physician: Mychal Stephenson MD Consults: 01/18/22 10:34 Consult Physician Routine Consulting Provider: Leonel Garrett Consult Reason/Comments: symptomatic gallstone Do you want consulting provider notified?: Yes 01/21/22 10:50 Consult Physician Routine Consulting Provider: Manav Gramajo Consult Reason/Comments: Right salivary gland mass Do you want consulting provider notified?: Yes Primary care physician: [facility] Course: Symptomatic cholelithiasis Thrush ELOY due to dehydration Diabetes mellitus type 2 with neuropathy SANJU with CPAP use Obesity, BMI 36.2 Chronic diastolic heart failure with ejection fraction 50% Hypertension Coronary artery disease Patient is a 66-year-old male with high diastolic congestive heart failure ejection fraction 55-60%, hypertension, coronary artery disease with prior myocardial infarction, multiple PCI, diabetes mellitus type 2 with neuropathy, and BPH who presented to the ER with complaints of abdominal pain. On arrival to the ER his vital signs were within normal limits. Blood pressure was on the lower side at 97/74. Initial laboratory analysis was remarkable for potassium of 3.4, BUN 36, and creatinine 2.47. He was started on IV fluids. Gallbladder ultrasound showed hepatic steatosis as well as cholelithiasis with mild gallbladder wall thickening. Surgery consultation was requested, they recommended laparoscopic cholecystectomy, which was done on 01/21. Patient was subsequently monitored overnight and by following day was tolerating diet, passing gas, no complaints of abdominal pain. Patient will follow-up with primary care physician as well as general surgery.. Gen: awake, alert HEENT: normocephalic, atraumatic, good hearing acuity, moist mucous membranes Resp: good air exchange, breathing comfortably with no accessory muscle use CVS: good distal perfusion x 4, GI: soft, NTTP, ND : no SPT, no CVAT, alex catheter not present MSK: Trace pitting edema, no clubbing Neuro: non-focal, moving all extremities Psych: cooperative, euthymic mood Patient Condition at Discharge: Good Plan - Discharge Summary Discharge Rx Participant: No New Discharge Prescriptions: New HYDROcodone/APAP 5-325MG [[place] 5-325] 1 tab PO Q6HR PRN 3 Days #12 tab PRN Reason: Pain Tamsulosin [Flomax] 0.4 mg PO PC-BRKFST #30 cap Acetaminophen Tab [Tylenol] 650 mg PO Q6HR PRN tab PRN Reason: Mild Pain Or Fever > 100.5 Continue Aspirin 81 mg PO DAILY #302 chew Atorvastatin [Lipitor] 40 mg PO HS #30 tab Clopidogrel [Plavix] 75 mg PO DAILY hydrALAZINE HCL [Apresoline] 100 mg PO BID metFORMIN HCL 500 mg PO BID Losartan Potassium 100 mg PO DAILY Potassium Chloride [Klor-Con M20] 20 meq PO BID Discontinued Spironolactone [Aldactone] 25 mg PO DAILY 30 Days #30 tab Discharge Medication List Aspirin 81 mg PO DAILY #302 chew 03/17/17 [Rx] Atorvastatin [Lipitor] 40 mg PO HS #30 tab 03/17/17 [Rx] Clopidogrel [Plavix] 75 mg PO DAILY 04/02/17 [History] hydrALAZINE HCL [Apresoline] 100 mg PO BID 08/11/19 [History] metFORMIN HCL 500 mg PO BID 08/11/19 [History] Losartan Potassium 100 mg PO DAILY 04/04/21 [History] Potassium Chloride [Klor-Con M20] 20 meq PO BID 10/11/21 [History] Acetaminophen Tab [Tylenol] 650 mg PO Q6HR PRN tab 01/22/22 [Rx] HYDROcodone/APAP 5-325MG [[place] 5-325] 1 tab PO Q6HR PRN 3 Days #12 tab 01/22/22 [Rx] Tamsulosin [Flomax] 0.4 mg PO PC-BRKFST #30 cap 01/22/22 [Rx] Follow up Appointment(s)/Referral(s): Bryce Astudillo MD [Primary Care Provider] - 1-2 days Manav Gramajo MD [STAFF PHYSICIAN] - 1 Week Leonel Garrett MD [STAFF PHYSICIAN] - 1 Week Activity/Diet/Wound Care/Special Instructions: No driving while taking [place] No lifting over 10 pounds Shower daily. No soaking or tub baths for 2 weeks Very light activity until you are reevaluated at your follow up appointment with your surgeon Discharge Disposition: HOME SELF-CARE
[2022-01-22 13:12] VITALS: BMI 36.1
[2022-01-22 15:03] VITALS: BP 90/36; PULSE 60; RESP 18; TEMP 98.2
[2022-01-23] MEDS ORDERED: TAMSULOSIN 0.4 MG CAP.ER.24H PO SCH (08:30)
== END 2022-01-22 15:21 | disposition home or self-care (01) ==
LOC: EC 11:01 → 6NMEDSUR 14:50
PROVIDERS: ADMIT Internal Medicine; ATTEND Internal Medicine
DX: K80.10 Calculus of gallbladder with chronic cholecystitis without obstruction (principal); E86.0 Dehydration; I25.10 Atherosclerotic heart disease of native coronary artery without angina pectoris; I11.0 Hypertensive heart disease with heart failure; I50.32 Chronic diastolic (congestive) heart failure; N17.9 Acute kidney failure, unspecified; I88.0 Nonspecific mesenteric lymphadenitis; E11.42 Type 2 diabetes mellitus with diabetic polyneuropathy; G47.33 Obstructive sleep apnea (adult) (pediatric); E87.6 Hypokalemia; N40.1 Benign prostatic hyperplasia with lower urinary tract symptoms; I25.2 Old myocardial infarction; E11.51 Type 2 diabetes mellitus with diabetic peripheral angiopathy without gangrene; J98.11 Atelectasis; D35.01 Benign neoplasm of right adrenal gland; K57.30 Diverticulosis of large intestine without perforation or abscess without bleeding; I72.3 Aneurysm of iliac artery; K76.0 Fatty (change of) liver, not elsewhere classified; I70.0 Atherosclerosis of aorta; I71.20 Thoracic aortic aneurysm, without rupture, unspecified; B37.9 Candidiasis, unspecified; M25.78 Osteophyte, vertebrae; K46.9 Unspecified abdominal hernia without obstruction or gangrene; E66.9 Obesity, unspecified; Z96.652 Presence of left artificial knee joint; Z85.828 Personal history of other malignant neoplasm of skin; Z86.16 Personal history of COVID-19; Z79.84 Long term (current) use of oral hypoglycemic drugs; Z79.82 Long term (current) use of aspirin; Z79.02 Long term (current) use of antithrombotics/antiplatelets; Z79.899 Other long term (current) drug therapy; Z88.0 Allergy status to penicillin; Z87.891 Personal history of nicotine dependence; Z82.0 Family history of epilepsy and other diseases of the nervous system; Z80.0 Family history of malignant neoplasm of digestive organs; Z68.36 Body mass index [BMI] 36.0-36.9, adult; Z95.5 Presence of coronary angioplasty implant and graft
CPT/HCPCS: 96376 ×4; 96372 ×5; 96375 ×2; 96360 ×3; 96361 ×7; 96374; 99285; 36415; 94760; 97161; 97165; 88304; 80053 ×3; 80048; 83605; 83690; 83735 ×2; 84100; 84132; 85025; 85027 ×2; 81001; 83036; 76705; 74176; 47562; G0378 ×6; J2250; J0330; J0360; J1100; J2710; J2405 ×2; J0690; J1650 ×5; J3010; J1170 ×3; J2704; C9113 ×5; J2001

== ENCOUNTER 2022-02-21 07:15 | Day surgery (SDC) | payer MEDICARE ==
[2022-02-19 10:17] VITALS: BMI 36.1
[~2022-02-21 07:15] MED LIST changes: -CASIRIVIMAB (REGN10933) (EUA) 600 MG, IMDEVIMAB (REGN10987) (EUA) 600 MG in SODIUM CHLO... IVPB NR; +LACTATED RINGERS 1,000 ML IV SCH; -SODIUM CHLORIDE 0.9% 50 ML IVPB NR; -SODIUM CHLORIDE 0.9% 500 ML 500 ML in EMPTY BAG 1 BAG IV PRN
[2022-02-21 08:04] VITALS: TEMP 96.9
[2022-02-21] MEDS ORDERED: hydrALAZINE HCL 20 MG/ML 1 ML VIAL IVP ONE ×2 (08:24→08:50)
[2022-02-21 08:32] LABS: Glucose,Whole Blood 104 mg/dL (70-110)
[2022-02-21] MEDS ORDERED: PROPOFOL 10 MG/ML 20 ML VIAL IV ONE (09:11)
--- NOTE | 2022-02-21 09:13 | P.GSHP ---
History of Present Illness H&P Date: 02/21/22 Chief Complaint: Screening colonoscopy This is a 6-year-old male presents today for screening colonoscopy. Patient denies a significant GI complaints. Past Medical History Past Medical History: Coronary Artery Disease (CAD), Cancer, Heart Failure, Diabetes Mellitus, Hypertension, Myocardial Infarction (TN), Osteoarthritis (OA), Prostate Disorder, Sleep Apnea/CPAP/BIPAP, Vascular Disorder Additional Past Medical History / Comment(s): Hx [place] X4. Hx Covid 02/20, had mononucal antibodies (with reaction), still has residual vertigo, aches and pains and brain fog. Neuropathy bilateral feet. CPAP use. Hx right ear basal cell skin cancer(removed). Slight BPH, elevate PSA. PVD. Thoracic Aortic Aneurysm. Last Myocardial Infarction Date:: 08/11/19 History of Any Multi-Drug Resistant Organisms: None Reported Past Surgical History: Cholecystectomy, Heart Catheterization, Heart Catheterization With Stent, Joint Replacement, Orthopedic Surgery Additional Past Surgical History / Comment(s): PCI with a total of 7 stents, bilateral knee ACLs, total left knee arthroplasty, right knee arthroscopy, bilateral surgery on elbows, right ear cancer/reconstructive surgery, all teeth removed. Past Anesthesia/Blood Transfusion Reactions: No Reported Reaction Additional Past Anesthesia/Blood Transfusion Reaction / Comment(s): Couldn't urinate after gallbladder surgery, had to be straight cathed X1. Date of Last Stent Placement:: 2017 Past Psychological History: No Psychological Hx Reported Smoking Status: Former smoker Past Alcohol Use History: Rare Additional Past Alcohol Use History / Comment(s): started smoking in 2003 and quit 2007, smoked less than a pack a day. Past Drug Use History: None Reported - Past Family History Father Family Medical History: Dementia Additional Family Medical History / Comment(s): Father is . Mother Family Medical History: Cancer Additional Family Medical History / Comment(s): MOTHER OF CANCER-FOUND IN LIVER-PRIMARY NEVER KNOWN. Medications and Allergies Home Medications Medication Instructions Recorded Confirmed Type Aspirin 81 mg PO DAILY #302 chew 03/17/17 02/21/22 Rx Atorvastatin [Lipitor] 40 mg PO HS #30 tab 03/17/17 02/21/22 Rx Clopidogrel [Plavix] 75 mg PO DAILY 04/02/17 02/21/22 History hydrALAZINE HCL [Apresoline] 100 mg PO BID 08/11/19 02/21/22 History metFORMIN HCL 500 mg PO BID 08/11/19 02/21/22 History Losartan Potassium 100 mg PO QAM 04/04/21 02/21/22 History Potassium Chloride [Klor-Con M20] 20 meq PO BID 10/11/21 02/21/22 History Tamsulosin [Flomax] 0.4 mg PO PC-BRKFST #30 cap 01/22/22 02/21/22 Rx Allergies Allergy/AdvReac Type Severity Reaction Status Date / Time Penicillins Allergy Unknown Unknown Verified 02/21/22 07:52 Childhood amlodipine [From Lotrel] AdvReac ITCHING/SWE Verified 02/21/22 07:52 LLING benazepril [From Lotrel] AdvReac ITCHING/SWE Verified 02/21/22 07:52 LLING Surgical - Exam Vital Signs Temp Pulse Resp BP Pulse Ox 96.9 F L 57 L 18 201/107 96 02/21/22 07:51 02/21/22 07:51 02/21/22 07:51 02/21/22 07:51 02/21/22 07:51 - General well developed, well nourished, no distress - Eyes PERRL - ENT normal pinna - Neck no masses - Respiratory normal expansion - Cardiovascular Rhythm: regular - Abdomen Abdomen: soft, non tender Assessment and Plan Assessment: We'll perform screening colonoscopy
--- NOTE | 2022-02-21 09:32 | P.OP ---
Date of Procedure: 02/21/22 Preoperative Diagnosis: Screening colonoscopy Postoperative Diagnosis: Diverticulosis External hemorrhoids Procedure(s) Performed: Colonoscopy Anesthesia: MAC Surgeon: Leonel Garrett Pathology: none sent Condition: stable Disposition: PACU Description of Procedure: The patient's placed on the endoscopy table in the lateral position. He received IV sedation. Digital rectal exam was performed. This revealed significant external and internal hemorrhoids. The flexible colonoscope was then placed patient anus and passed throughout the entire colon. The ileocecal valve was visualized. The cecum, ascending and transverse colon appeared normal. The descending; had extensive diverticular changes. Scope was then brought back the rectum and this appeared normal. Scope withdrawn for patient.
[2022-02-21 09:57] VITALS: BP 158/95; PULSE 83; RESP 14
== END 2022-02-21 10:18 | disposition home or self-care (01) ==
LOC: ORWHC2ENDO 07:15
PROVIDERS: ATTEND Surgery
DX: Z12.11 Encounter for screening for malignant neoplasm of colon (principal); K57.30 Diverticulosis of large intestine without perforation or abscess without bleeding; E11.51 Type 2 diabetes mellitus with diabetic peripheral angiopathy without gangrene; G47.30 Sleep apnea, unspecified; I11.0 Hypertensive heart disease with heart failure; I50.9 Heart failure, unspecified; I25.10 Atherosclerotic heart disease of native coronary artery without angina pectoris; I25.2 Old myocardial infarction; K64.4 Residual hemorrhoidal skin tags; M19.90 Unspecified osteoarthritis, unspecified site; Z79.02 Long term (current) use of antithrombotics/antiplatelets; Z79.82 Long term (current) use of aspirin; Z79.84 Long term (current) use of oral hypoglycemic drugs; Z85.828 Personal history of other malignant neoplasm of skin; Z86.16 Personal history of COVID-19; Z87.891 Personal history of nicotine dependence; Z88.0 Allergy status to penicillin; Z88.8 Allergy status to other drugs, medicaments and biological substances; Z90.49 Acquired absence of other specified parts of digestive tract
CPT/HCPCS: J0360; J2704; G0121; 45378

== ENCOUNTER 2023-04-02 16:58 | Inpatient (IN) | payer MEDICARE ==
--- NOTE | 2023-04-02 17:56 | ED ---
General Adult HPI - General Source: patient, RN notes reviewed <Haylee Rizo - Last Filed: 04/02/23 17:53> <Treasure Cr - Last Filed: 04/02/23 22:39> - General Stated complaint: AMARILYS-CHF Time Seen by Provider: 04/02/23 17:54 - History of Present Illness Initial comments: 67 year old male presents to the emergency department for evaluation of shortness of breath. He states that this has been worsening for the past 2 weeks. He reports worse with movement. Admits to cough. Reports that he has been out of his medications for 3 weeks including his lasix. PMH CHF, COPD. (Haylee Meadows) - Related Data Home Medications Medication Instructions Recorded Confirmed Clopidogrel [Plavix] 75 mg PO DAILY 04/02/17 04/02/23 Losartan Potassium 100 mg PO DAILY 04/04/21 04/02/23 Potassium Chloride [Klor-Con M20] 20 meq PO BID 10/11/21 04/02/23 Atorvastatin [Lipitor] 40 mg PO DAILY 04/02/23 04/02/23 Budesonide/Glycopyr/Formoterol 1 puff INHALATION RT-DAILY PRN 04/02/23 04/02/23 [Breztri Aerosphere Inhaler] Furosemide [Lasix] 20 mg PO DAILY PRN 04/02/23 04/02/23 Metoprolol Succinate (ER) [Toprol 50 mg PO BID 04/02/23 04/02/23 Xl] Multivitamins, Thera [Multivitamin 1 tab PO DAILY 04/02/23 04/02/23 (formulary)] Nitroglycerin Sl Tabs [Nitrostat] 0.4 mg SUBLINGUAL Q5M PRN 04/02/23 04/02/23 Spironolactone [Aldactone] 25 mg PO DAILY 04/02/23 04/02/23 Previous Rx's Medication Instructions Recorded Aspirin 81 mg PO DAILY #302 chew 03/17/17 Allergies Allergy/AdvReac Type Severity Reaction Status Date / Time Penicillins Allergy Unknown Unknown Verified 04/02/23 20:13 Childhood amlodipine [From Lotrel] AdvReac ITCHING/SWE Verified 04/02/23 20:13 LLING benazepril [From Lotrel] AdvReac ITCHING/SWE Verified 04/02/23 20:13 LLING Review of Systems ROS Other: All systems not noted in ROS Statement are negative. <Haylee Rizo - Last Filed: 04/02/23 17:53> ROS Other: All systems not noted in ROS Statement are negative. <Treasure Cr Matthieu - Last Filed: 04/02/23 22:39> ROS Statement: Those systems with pertinent positive or pertinent negative responses have been documented in the HPI. Past Medical History Past Medical History: Coronary Artery Disease (CAD), Cancer, Heart Failure, Diabetes Mellitus, Hypertension, Myocardial Infarction (MA), Osteoarthritis (OA), Prostate Disorder, Sleep Apnea/CPAP/BIPAP, Vascular Disorder Additional Past Medical History / Comment(s): Hx MA X4. Hx Covid 02/20, had mononucal antibodies (with reaction), still has residual vertigo, aches and pains and brain fog. Neuropathy bilateral feet. CPAP use. Hx right ear basal cell skin cancer(removed). Slight BPH, elevate PSA. PVD. Thoracic Aortic A neurysm. Last Myocardial Infarction Date:: 08/11/19 History of Any Multi-Drug Resistant Organisms: None Reported Past Surgical History: Cholecystectomy, Heart Catheterization, Heart Catheterization With Stent, Joint Replacement, Orthopedic Surgery Additional Past Surgical History / Comment(s): PCI with a total of 7 stents, bilateral knee ACLs, total left knee arthroplasty, right knee arthroscopy, bilateral surgery on elbows, right ear cancer/reconstructive surgery, all teeth removed. Past Anesthesia/Blood Transfusion Reactions: No Reported Reaction Additional Past Anesthesia/Blood Transfusion Reaction / Comment(s): Couldn't urinate after gallbladder surgery, had to be straight cathed X1. Date of Last Stent Placement:: 2017 Past Psychological History: No Psychological Hx Reported Smoking Status: Former smoker Past Alcohol Use History: Rare Additional Past Alcohol Use History / Comment(s): started smoking in 2003 and quit 2007, smoked less than a pack a day. Past Drug Use History: None Reported - Past Family History Father Family Medical History: Dementia Additional Family Medical History / Comment(s): Father is . Mother Family Medical History: Cancer Additional Family Medical History / Comment(s): MOTHER OF CANCER-FOUND IN LIVER-PRIMARY NEVER KNOWN. <Haylee Rizo - Last Filed: 04/02/23 17:53> General Exam <Haylee Rizo - Last Filed: 04/02/23 17:53> - General Exam Comments Initial Comments: Visual Physical Exam Vital signs reviewed General: Well-appearing, nontoxic, no acute distress. Head: Normocephalic, atraumatic Eyes: PERRLA, EOMI ENT: Airway patent Chest: Nonlabored breathing Skin: No visual rash, normal skin tone Neuro: Alert and oriented 3 Musculoskeletal: No gross abnormalities (Haylee Rizo) Course Vital Signs 04/02/23 04/02/23 04/02/23 18:08 19:21 19:29 Temperature 99.2 F Pulse Rate 70 86 Respiratory 22 18 16 Rate Blood Pressure 203/129 182/139 O2 Sat by Pulse 93 L 95 Oximetry 04/02/23 04/02/23 20:31 21:33 Temperature Pulse Rate 86 92 Respiratory 16 20 Rate Blood Pressure 168/143 186/134 O2 Sat by Pulse 95 97 Oximetry Medical Decision Making <Haylee Rizo - Last Filed: 04/02/23 17:53> - Lab Data Result diagrams: 04/02/23 18:49 04/02/23 18:49 <Treasure Cr - Last Filed: 04/02/23 22:39> - Medical Decision Making Quick note preformed by Haylee Rizo PA-C (Haylee Rizo) Was pt. sent in by a medical professional or institution (LAINA Vides, MATERIALS SPECIALIST, urgent care, hospital, or alf...) When possible be specific @ -[No] Did you speak to anyone other than the patient for history (EMS, parent, family, police, friend...)? What history was obtained from this source @ -[No] Did you review nursing and triage notes (agree or disagree)? Why? @ -[I reviewed and agree with nursing and triage notes] Were old charts reviewed (outside hosp., previous admission, EMS record, old EKG, old radiological studies, urgent care reports/EKG's, alf records)? Report findings @ -[No old charts were reviewed] Differential Diagnosis (chest pain, altered mental status, abdominal pain women, abdominal pain men, vaginal bleeding, weakness, fever, dyspnea, syncope, headache, dizziness, GI bleed, back pain, seizure, CVA, palpatations, mental health, musculoskeletal)? @ -[not applicable] EKG interpreted by me (3pts min.). @ -First done at 1829 demonstrates sinus arrhythmia with a rate of 80. QRS 161. QTc of 453 Repeat EKG done at 1949 demonstrates sinus rhythm with frequent PACs. Rate of 86. IL interval 168. QRS 165. QTc of 498 X-rays interpreted by me (1pt min.). @ -[None done] CT interpreted by me (1pt min.). @ -[None done] U/S interpreted by me (1pt. min.). @ -[None done] What testing was considered but not performed or refused? (CT, X-rays, U/S, labs)? Why? @ -[None] What meds were considered but not given or refused? Why? @ -[None] Did you discuss the management of the patient with other professionals (professionals i.e. , PA, MATERIALS SPECIALIST, lab, RT, psych nurse, long term care social worker, boot repairer, teacher, life science technical officer, rn case management)? Give summary @ -[No] Was smoking cessation discussed for >3mins.? @ -[No] Was critical care preformed (if so, how long)? @ -[No] Were there social determinants of health that impacted care today? How? (Homelessness, low income, unemployed, alcoholism, drug addiction, transportation, low edu. Level, literacy, decrease access to med. care, mcc, rehab)? @ -[No] Was there de-escalation of care discussed even if they declined (Discuss DNR or withdrawal of care, Hospice)? DNR status @ -[No] What co-morbidities impacted this encounter? (DM, HTN, Smoking, COPD, CAD, Cancer, CVA, ARF, Chemo, Hep., AIDS, mental health diagnosis, sleep apnea, morbid obesity)? @ -[None] Was patient admitted / discharged? Hospital course, mention meds given and route, prescriptions, significant lab abnormalities, going to OR and other pertinent info. @ -[hospital course] Undiagnosed new problem with uncertain prognosis? @ -[No] Drug Therapy requiring intensive monitoring for toxicity (Heparin, Nitro, Insulin, Cardizem)? @ -[No] Were any procedures done? @ -[No] Diagnosis/symptom? @ -[default] Acute, or Chronic, or Acute on Chronic? @ -[default] Uncomplicated (without systemic symptoms) or Complicated (systemic symptoms)? @ -[default] Side effects of treatment? @ -[No] Exacerbation, Progression, or Severe Exacerbation? @ -[No] Poses a threat to life or bodily function? How? (Chest pain, USA, MA, pneumonia, PE, COPD, DKA, ARF, appy, cholecystitis, CVA, Diverticulitis, Homicidal, Suicidal, threat to staff... and all critical care pts) @ -[No] (Treasure Cr) - Lab Data Lab Results 04/02/23 04/02/23 04/02/23 Range/Units 18:49 18:49 18:49 WBC 11.3 H (3.8-10.6) k/uL RBC 5.25 (4.30-5.90) m/uL Hgb 15.6 (13.0-17.5) gm/dL Hct 47.2 (39.0-53.0) % MCV 90.0 (80.0-100.0) fL MCH 29.8 (25.0-35.0) pg MCHC 33.1 (31.0-37.0) g/dL RDW 14.3 (11.5-15.5) % Plt Count 292 (150-450) k/uL MPV 7.6 Neutrophils % 68 % Lymphocytes % 21 % Monocytes % 6 % Eosinophils % 3 % Basophils % 1 % Neutrophils # 7.7 (1.3-7.7) k/uL Lymphocytes # 2.3 (1.0-4.8) k/uL Monocytes # 0.7 (0-1.0) k/uL Eosinophils # 0.3 (0-0.7) k/uL Basophils # 0.1 (0-0.2) k/uL PT 11.0 (10.0-12.5) sec INR 1.0 (<1.2) APTT 23.9 (22.0-30.0) sec Sodium 143 (137-145) mmol/L Potassium 3.6 (3.5-5.1) mmol/L Chloride 109 H (98-107) mmol/L Carbon Dioxide 25 (22-30) mmol/L Anion Gap 9 mmol/L BUN 11 (9-20) mg/dL Creatinine 0.83 (0.66-1.25) mg/dL Est GFR (CKD-EPI)AfAm >90 (>60 ml/min/1.73 sqM) Est GFR (CKD-EPI)NonAf >90 (>60 ml/min/1.73 sqM) Glucose 119 H (74-99) mg/dL Calcium 9.4 (8.4-10.2) mg/dL Total Bilirubin 1.5 H (0.2-1.3) mg/dL AST 32 (17-59) U/L ALT 36 (4-49) U/L Alkaline Phosphatase 108 (38-126) U/L Troponin I (0.000-0.034) ng/mL NT-Pro-B Natriuret Pep 1490 pg/mL Total Protein 6.7 (6.3-8.2) g/dL Albumin 4.0 (3.5-5.0) g/dL 04/02/23 Range/Units 18:49 WBC (3.8-10.6) k/uL RBC (4.30-5.90) m/uL Hgb (13.0-17.5) gm/dL Hct (39.0-53.0) % MCV (80.0-100.0) fL MCH (25.0-35.0) pg MCHC (31.0-37.0) g/dL RDW (11.5-15.5) % Plt Count (150-450) k/uL MPV Neutrophils % % Lymphocytes % % Monocytes % % Eosinophils % % Basophils % % Neutrophils # (1.3-7.7) k/uL Lymphocytes # (1.0-4.8) k/uL Monocytes # (0-1.0) k/uL Eosinophils # (0-0.7) k/uL Basophils # (0-0.2) k/uL PT (10.0-12.5) sec INR (<1.2) APTT (22.0-30.0) sec Sodium (137-145) mmol/L Potassium (3.5-5.1) mmol/L Chloride (98-107) mmol/L Carbon Dioxide (22-30) mmol/L Anion Gap mmol/L BUN (9-20) mg/dL Creatinine (0.66-1.25) mg/dL Est GFR (CKD-EPI)AfAm (>60 ml/min/1.73 sqM) Est GFR (CKD-EPI)NonAf (>60 ml/min/1.73 sqM) Glucose (74-99) mg/dL Calcium (8.4-10.2) mg/dL Total Bilirubin (0.2-1.3) mg/dL AST (17-59) U/L ALT (4-49) U/L Alkaline Phosphatase (38-126) U/L Troponin I 0.117 H* (0.000-0.034) ng/mL NT-Pro-B Natriuret Pep pg/mL Total Protein (6.3-8.2) g/dL Albumin (3.5-5.0) g/dL Disposition <Haylee Rizo - Last Filed: 04/02/23 17:53> Is patient prescribed a controlled substance at d/c from ED?: No Time of Disposition: 21:43 Decision to Admit Reason: Admit from EC Decision Date: 04/02/23 Decision Time: 21:43 <Treasure Cr - Last Filed: 04/02/23 22:39> Clinical Impression: NSTEMI (non-ST elevated myocardial infarction), CHF exacerbation Disposition: ADMITTED IP TO THIS HOSP Condition: Stable
[2023-04-02 18:58] LABS: Basophils # (A) 0.1 k/uL (0-0.2); Basophils % (A) 1 %; Eosinophils # (A) 0.3 k/uL (0-0.7); Eosinophils % (A) 3 %; HCT 47.2 % (39.0-53.0); HGB 15.6 gm/dL (13.0-17.5); Lymphocytes # (A) 2.3 k/uL (1.0-4.8); Lymphocytes % (A) 21 %; MCH 29.8 pg (25.0-35.0); MCHC 33.1 g/dL (31.0-37.0); Mean Platelet Volume 7.6; Monocytes # (A) 0.7 k/uL (0-1.0); Monocytes % (A) 6 %; Neutrophils # (A) 7.7 k/uL (1.3-7.7); Neutrophils % (A) 68 %; Platelet Count 292 k/uL (150-450); RBC 5.25 m/uL (4.30-5.90); RDW 14.3 % (11.5-15.5); WBC 11.3 k/uL (3.8-10.6)
[2023-04-02 19:08] LABS: ALT 36 U/L (4-49); AST 32 U/L (17-59); African American GFR (CKD) >90 (>60 ml/min/1.73 sqM); Alkaline Phosphatase 108 U/L (38-126); Anion Gap 9 mmol/L; Blood Urea Nitrogen 11 mg/dL (9-20); Calcium 9.4 mg/dL (8.4-10.2); Carbon Dioxide 25 mmol/L (22-30); Chloride 109 mmol/L (98-107); Glucose 119 mg/dL (74-99); Non-African American GFR(CKD) >90 (>60 ml/min/1.73 sqM); Potassium 3.6 mmol/L (3.5-5.1); Sodium 143 mmol/L (137-145); Total Bilirubin 1.5 mg/dL (0.2-1.3); Total Protein 6.7 g/dL (6.3-8.2)
[2023-04-02 19:16] LABS: NT-Pro-B-Type Natriuretic Pept 1490 pg/mL
[2023-04-02 19:38] LABS: Partial Thromboplastin Time 23.9 sec (22.0-30.0)
--- NOTE | 2023-04-02 19:49 | XR ---
EXAMINATION TYPE: XR chest 2V DATE OF EXAM: 04/02/2023 7:18 PM CLINICAL INDICATION:Male, 67 years old with history of difficulty breathing; [facility] COMPARISON: Chest radiographs from 11/08/2021 TECHNIQUE: XR chest 2V Frontal and lateral views of the chest. FINDINGS: Lungs/Pleura: There is no evidence of pleural effusion, focal consolidation, or pneumothorax. Pulmonary vascularity: Pulmonary vascular congestion. Heart/mediastinum: Cardiomediastinal silhouette is enlarged and stable. Musculoskeletal: No acute osseous pathology. Other findings: None IMPRESSION: Cardiomegaly and mild pulmonary vascular congestion. Correlate with BNP for congestive heart failure.
[2023-04-02] MEDS ORDERED: NALOXONE 0.4 MG/ML 1 ML VIAL IV PRN (21:43)
[2023-04-02] MEDS ORDERED: ASPIRIN 81 MG PO STA (21:59)
[2023-04-02] MEDS ORDERED: HEPARIN SODIUM 1,000 UN/ML (10ML VL) IV ONE (22:01)
[2023-04-02] MEDS ORDERED: FUROSEMIDE 10 MG/ML 4 ML VIAL IV STA (22:03)
[2023-04-02] MEDS ORDERED: NON FORMULARY DRUG (Budesonide/Glycopyr/Formoterol [Breztri Aerosphere Inhaler] 10.7 GM Gm INHALATION PRN (22:23)
--- NOTE | 2023-04-02 22:26 | P.HPIM ---
History of Present Illness H&P Date: 04/02/23 Patient is a 67-year-old male with a PMH of diastolic CHF, CAD status post numerous stents, COPD, type II DM, hypertension, hyperlipidemia, obstructive sleep apnea who presents to the emergency room with complaints of shortness of breath and lower extremity edema. History is supplemented by the patient's and son at the bedside. Patient reports gradually worsening orthopnea as well as shortness of breath over the past 3 to 4 weeks with significant dyspnea on exertion. Reports occasional chest tightness, unable to quantify, substernal, nonradiating lasting for minutes to hours at a time and then resolving spontaneously. Reports being chest pain-free at the time of interview. Reports compliance with daily Lasix 20 mg p.o. 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 Denies fever, chills, nausea, vomiting, diaphoresis, abdominal pain. Chest x-ray in the emergency room showed cardiomegaly and pulmonary vascular congestion with laboratory evaluation showing leukocytosis of 11.3, troponin 0.117, proBNP 1490, total bilirubin 1.5. The patient's SpO2 upon arrival was 93% on room air with BP 203/129 with respiratory rate 22 and pulse 70 with a temp 99.2 F. ED documentation reviewed and case discussed with ED provider. Review of systems: Pertinent positives and negatives as discussed in HPI, a complete review of systems was performed and all other systems are negative. Physical examination: Vital signs reviewed General: non toxic, no distress, appears at stated age, morbidly obese Derm: no unusual rashes/lesions, warm Head: atraumatic, normocephalic, symmetric Eyes: EOMI, no lid lag, anicteric sclera, pupils equal round reactive to light ENT: Nose and ears atraumatic Neck: No cervical lymphadenopathy, trachea midline, supple Mouth: no lip lesion, mucus membranes moist Cardiovascular: S1S2 reg, no murmur, positive dorsalis pedis pulse bilateral, 2+ bilateral lower extremity pitting edema to thighs Lungs: Bilateral rales with some expiratory wheezing, no accessory muscle use Abdominal: soft, nontender to palpation, no guarding Ext: muscle strength 5 out of 5 in all 4 extremities grossly, no gross muscle atrophy, no contractures, Neuro: CN II-XI grossly intact, no gross focal neuro deficits Psych: Alert, oriented, appropriate affect Assessment: Acute diastolic CHF exacerbation Non-ST elevation ID Hypertensive urgency Leukocytosis, likely due to acute stressor with no signs of active infection at this time Chronic conditions: Type II DM, COPD, hypertension, hyperlipidemia, obstructive sleep apnea Imaging: Chest x-ray in the emergency room showed cardiomegaly and pulmonary vascular congestion Data Review: laboratory evaluation showing leukocytosis of 11.3, troponin 0.117, proBNP 1490, total bilirubin 1.5. The patient's SpO2 upon arrival was 93% on room air with BP 203/129 with respiratory rate 22 and pulse 70 with a temp 99.2 F. Plan: Continue with Lasix IV 40 mg every 12 hourly Continue heparin infusion Intake and output Daily weights Fluid restriction Cardiology consulted Obtain Echocardiogram Cardiac monitoring Trend troponin Continue with aspirin 81 mg p.o. daily and Plavix 75 mg p.o. daily Continue with home antihypertensives for now Supplemental oxygen DVT prophylaxis: Heparin infusion The patient is admitted with an anticipated greater than 2 midnight stay for evaluation of diastolic CHF CODE STATUS: Full Code Discussed with: Patient Anticipated discharge place: Home Past Medical History Past Medical History: Coronary Artery Disease (CAD), Cancer, Heart Failure, Diabetes Mellitus, Hypertension, Myocardial Infarction (ID), Osteoarthritis (OA), Prostate Disorder, Sleep Apnea/CPAP/BIPAP, Vascular Disorder Additional Past Medical History / Comment(s): Hx ID X4. Hx Covid 02/20, had mononucal antibodies (with reaction), still has residual vertigo, aches and pains and brain fog. Neuropathy bilateral feet. CPAP use. Hx right ear basal cell skin cancer(removed). Slight BPH, elevate PSA. PVD. Thoracic Aortic Aneurysm. Last Myocardial Infarction Date:: 08/11/19 History of Any Multi-Drug Resistant Organisms: None Reported Past Surgical History: Cholecystectomy, Heart Catheterization, Heart Catheterization With Stent, Joint Replacement, Orthopedic Surgery Additional Past Surgical History / Comment(s): PCI with a total of 7 stents, bilateral knee ACLs, total left knee arthroplasty, right knee arthroscopy, bilateral surgery on elbows, right ear cancer/reconstructive surgery, all teeth removed. Past Anesthesia/Blood Transfusion Reactions: No Reported Reaction Additional Past Anesthesia/Blood Transfusion Reaction / Comment(s): Couldn't urinate after gallbladder surgery, had to be straight cathed X1. Date of Last Stent Placement:: 2017 Past Psychological History: No Psychological Hx Reported Smoking Status: Former smoker Past Alcohol Use History: Rare Past Drug Use History: None Reported - Past Family History Father Family Medical History: Dementia Additional Family Medical History / Comment(s): Father is . Mother Family Medical History: Cancer Additional Family Medical History / Comment(s): MOTHER OF CANCER-FOUND IN LIVER-PRIMARY NEVER KNOWN. Medications and Allergies Home Medications Medication Instructions Recorded Confirmed Type Aspirin 81 mg PO DAILY #302 chew 03/17/17 04/02/23 Rx Clopidogrel [Plavix] 75 mg PO DAILY 04/02/17 04/02/23 History Losartan Potassium 100 mg PO DAILY 04/04/21 04/02/23 History Potassium Chloride [Klor-Con M20] 20 meq PO BID 10/11/21 04/02/23 History Atorvastatin [Lipitor] 40 mg PO DAILY 04/02/23 04/02/23 History Budesonide/Glycopyr/Formoterol 1 puff INHALATION RT-DAILY PRN 04/02/23 04/02/23 History [Breztri Aerosphere Inhaler] Furosemide [Lasix] 20 mg PO DAILY PRN 04/02/23 04/02/23 History Metoprolol Succinate (ER) [Toprol 50 mg PO BID 04/02/23 04/02/23 History Xl] Multivitamins, Thera [Multivitamin 1 tab PO DAILY 04/02/23 04/02/23 History (formulary)] Nitroglycerin Sl Tabs [Nitrostat] 0.4 mg SUBLINGUAL Q5M PRN 04/02/23 04/02/23 Hi story Spironolactone [Aldactone] 25 mg PO DAILY 04/02/23 04/02/23 History Allergies Allergy/AdvReac Type Severity Reaction Status Date / Time Penicillins Allergy Unknown Unknown Verified 04/02/23 20:13 Childhood amlodipine [From Lotrel] AdvReac ITCHING/SWE Verified 04/02/23 20:13 LLING benazepril [From Lotrel] AdvReac ITCHING/SWE Verified 04/02/23 20:13 LLING Physical Exam Vitals: Vital Signs Temp Pulse Resp BP Pulse Ox 04/02/23 21:33 92 20 186/134 97 04/02/23 20:31 86 16 168/143 95 04/02/23 19:29 86 16 182/139 95 04/02/23 19:21 18 04/02/23 18:08 99.2 F 70 22 203/129 93 L Intake and Output 04/02/23 04/02/23 04/02/23 06:59 14:59 22:59 Other: Weight 151.953 kg Results CBC & Chem 7: 04/02/23 18:49 04/02/23 18:49 Labs: Abnormal Lab Results - Last 24 Hours (Table) 04/02/23 04/02/23 04/02/23 Range/Units 18:49 18:49 18:49 WBC 11.3 H (3.8-10.6) k/uL Chloride 109 H (98-107) mmol/L Glucose 119 H (74-99) mg/dL Total Bilirubin 1.5 H (0.2-1.3) mg/dL Troponin I 0.117 H* (0.000-0.034) ng/mL
[2023-04-02] MEDS: HEPARIN SOD,PORK IN 0.45% NACL 25,000 UNIT in 0.45% NACL 1 250ML.BAG IV SCH (22:49)
[2023-04-02] MEDS: CLOPIDOGREL 75 MG TAB PO SCH (22:55)
[2023-04-03] MEDS ORDERED: ISOSORBIDE MONONITRATE ER 60 MG TAB.ER.24H PO STA (03:44)
[2023-04-03 06:59] LABS: Basophils # (A) 0.1 k/uL (0-0.2); Basophils % (A) 1 %; Eosinophils # (A) 0.3 k/uL (0-0.7); Eosinophils % (A) 4 %; HCT 44.5 % (39.0-53.0); HGB 14.3 gm/dL (13.0-17.5); Lymphocytes # (A) 2.4 k/uL (1.0-4.8); Lymphocytes % (A) 31 %; MCH 29.6 pg (25.0-35.0); MCHC 32.2 g/dL (31.0-37.0); MCV 91.9 fL (80.0-100.0); Mean Platelet Volume 7.6; Monocytes # (A) 0.5 k/uL (0-1.0); Monocytes % (A) 6 %; Neutrophils # (A) 4.5 k/uL (1.3-7.7); Neutrophils % (A) 58 %; Platelet Count 246 k/uL (150-450); RBC 4.84 m/uL (4.30-5.90); RDW 14.4 % (11.5-15.5); WBC 7.7 k/uL (3.8-10.6)
[2023-04-03 07:08] LABS: Prothrombin Time 11.3 sec (10.0-12.5)
[2023-04-03 07:48] LABS: African American GFR (CKD) >90 (>60 ml/min/1.73 sqM); Anion Gap 8 mmol/L; Blood Urea Nitrogen 13 mg/dL (9-20); Carbon Dioxide 23 mmol/L (22-30); Chloride 109 mmol/L (98-107); Glucose 125 mg/dL (74-99); Non-African American GFR(CKD) 80 (>60 ml/min/1.73 sqM); Sodium 140 mmol/L (137-145)
[2023-04-03 07:50] LABS: Potassium 3.7 mmol/L (3.5-5.1)
[2023-04-03] MEDS: ASPIRIN 81 MG PO SCH (08:45)
[2023-04-03] MEDS: MULTIVITAMINS, THERA 1 EACH TAB PO SCH (08:45)
[2023-04-03] MEDS: METOPROLOL SUCCINATE (ER) 50 MG TAB.ER.24H PO SCH ×2 (08:46→20:10)
[2023-04-03] MEDS: POTASSIUM CHLORIDE ER 20 MEQ TAB.ER PO SCH ×2 (08:46→20:10)
[2023-04-03] MEDS: ATORVASTATIN 40 MG TAB PO SCH (08:46)
[2023-04-03] MEDS: SPIRONOLACTONE 25 MG TAB PO SCH (08:46)
[2023-04-03] MEDS: CLOPIDOGREL 75 MG TAB PO SCH (08:46)
[2023-04-03] MEDS: LOSARTAN 50 MG TAB PO SCH (08:46)
[2023-04-03] MEDS: FUROSEMIDE 10 MG/ML 4 ML VIAL IV SCH ×2 (08:47→20:12)
[2023-04-03] MEDS: HEPARIN SODIUM 1,000 UN/ML (10ML VL) IV PRN ×2 (08:56→17:01)
--- NOTE | 2023-04-03 11:41 | P.PN ---
Subjective Progress Note Date: 04/03/23 Patient is a 67-year-old male with a PMH of diastolic CHF, CAD status post numerous stents, COPD, type II DM, hypertension, hyperlipidemia, obstructive sleep apnea who presents to the emergency room with complaints of shortness of breath and lower extremity edema along with intermittent chest pain. Reports compliance with daily Lasix 20 mg p.o. 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 Chest x-ray in the emergency room showed cardiomegaly and pulmonary vascular congestion with laboratory evaluation showing leukocytosis of 11.3, troponin 0.117, proBNP 1490, total bilirubin 1.5. The patient's SpO2 upon arrival was 93% on room air with BP 203/129 with respiratory rate 22 and pulse 70 with a temp 99.2 F. Started on Lasix 40 mg IV BID and started on heparin drip with Cardiology consulted. 04/03 Patient was seen and examined. He reports improvement in his breathing. BP 148/95, 96% on 2L NC. CBC unremakable. Coag panel within normal limits. CMP Cl 109, glu 125. Repeat troponin 0.108. General: Non toxic, no distress, appears at stated age Derm: Warm, dry Head: Atraumatic, normocephalic, symmetric Eyes: EOMI, no lid lag, anicteric sclera Mouth: No lip lesion, mucus membranes moist Cardiovascular: S1S2 reg, no murmur Lungs: Decreased BS bilateral, no rhonchi, no rales, no accessory muscle use Ext: No gross muscle atrophy, no edema, no contractures Neuro: no focal neuro deficits Psych: Alert, oriented, appropriate affect Based on my assessment of this patient, this patient meets a high complexity level of care. Patient has a CHF with severe exacerbation or progression of disease which poses a threat to life or bodily function. Acute diastolic CHF exacerbation: Lasix 40 mg IV BID. Strict intake and outtake. Daily weights. Cardiology consult. Echo ordered. Atrial fibrillation: Continue low intensity heparin drip. Metoprolol 50 mg PO BID. Elevated troponin: Flat. Likely demand from hypertensive urgency. Hypertensive urgency: Improved. Metoprolol as above. Losartan 100 mg PO QD. Resolved: Leukocytosis Chronic conditions: Type II DM, COPD, hypertension, hyperlipidemia, obstructive sleep apnea CODE STATUS: FULL CODE. DVT Prophylaxis: Heparin drip GI Prophylaxis: Designated medical POA if patient is not able to make medical decisions for themselves: I have reviewed the following workers compensation consultant notes: I have reviewed the results of the following tests: CBC, BMP, Coag panel, Troponin. I have ordered the following tests: Pending: Echo. BMP. I have discussed the care of this patient with the following independent historian: I have independently interpreted the following test below: I have discussed the management of this patient with the following physician: This patient has a high risk of morbidity due to the following reasons: Patient requires IV lasix which requires intensive monitoring for renal toxicity. Patient requires IV heparin which requires intensive monitoring for toxicity (coag panel) and bleeding. Objective - Vital Signs Vital signs: Vital Signs Temp 98.7 F 04/03/23 07:30 Pulse 75 04/03/23 10:15 Resp 17 04/03/23 10:15 BP 148/95 04/03/23 10:15 Pulse Ox 96 04/03/23 10:15 FiO2 Intake & Output 04/02/23 04/03/23 04/03/23 18:59 06:59 18:59 Intake Total 101.157 Output Total 800 300 Balance -800 -198.843 Weight 151.953 kg Intake: Intake, IV Titration 101.157 Amount Heparin Sod,Pork in 0.45% 101.157 NaCl 25,000 unit In 0.45 % NaCl 1 250ml.bag @ 6.58 UNITS/KG/HR 9.999 mls/hr IV .Q24H [facility] Rx#: [id number] Output: Urine 800 300 - Labs CBC & Chem 7: 04/03/23 06:23 04/03/23 06:23 Labs: Abnormal Lab Results - Last 24 Hours (Table) 04/02/23 04/02/23 04/02/23 Range/Units 18:49 18:49 18:49 WBC 11.3 H (3.8-10.6) k/uL Chloride 109 H (98-107) mmol/L Glucose 119 H (74-99) mg/dL Total Bilirubin 1.5 H (0.2-1.3) mg/dL Troponin I 0.117 H* (0.000-0.034) ng/mL 04/03/23 04/03/23 Range/Units 06:03 06:23 WBC (3.8-10.6) k/uL Chloride 109 H (98-107) mmol/L Glucose 125 H (74-99) mg/dL Total Bilirubin (0.2-1.3) mg/dL Troponin I 0.108 H* (0.000-0.034) ng/mL
--- NOTE | 2023-04-03 12:46 | P.CRDCN ---
History of Present Illness Consult date: 04/03/23 Consult reason: hypertension, shortness of breath, other (elevated troponin) Chief complaint: Shortness of breath History of present illness: History of present illness: Patient is a pleasant 67-year-old male with significant past medical history of hypertension, hyperlipidemia, diabetes type 2, CAD status post PCI, diastolic heart failure, COPD who presented because of shortness of breath and lower extremity edema. He does follow-up with Dr. Aguillon in the office however it has been a while. He does admit that he ran out today if several of his medications recently. He has been feeling worsening shortness of breath and congestion. He denies any chest pain or pressure. Blood pressure was significantly elevated upon arrival to the emergency department 203/129. Labs reviewed: Troponin elevated 0.117, 0.108, BNP 1490, creatinine 0.98, potassium 3.7. EKG was read out as A-fib however upon review this is sinus rhythm with PACs. He is currently on a heparin drip. He did have prior heart catheterization 10/2021 which showed patent stents of the LAD and left circumflex, mild to moderate triple-vessel disease and he was recommended for medical therapy. REVIEW OF SYSTEMS: No fever or chills. No cough or expectoration. No diaphoresis. Patient denies headache, dizziness, blurred vision, double vision. Patient denies any stomach discomfort. No nausea, vomiting. No hematochezia. No hematemesis. Denies any black stools or blood in his stools. Denies dysuria or hematuria. No muscle weakness or numbness. No chest pain or pressure. Reports shortness of breath and congestion. PHYSICAL EXAMINATION: This is a 67-year-old male in no apparent distress at the time of my examination. HEENT: Head is atraumatic, normocephalic. Pupils are equal, round. Sclerae anicteric. Conjunctivae are clear. Mucous membranes of the mouth are moist. Neck is supple. There is no jugular venous distention. No carotid bruit is heard. CHEST EXAMINATION: Lungs are clear to auscultation. No chest wall tenderness is noted on palpation or with deep breathing. HEART EXAMINATION: Heart regular rate and rhythm. S1, S2 heard. No murmurs, gallops or rub. ABDOMEN: Soft, nontender. Bowel sounds are heard. EXTREMITIES: 2+ peripheral pulses with +1 BLE edema and no calf tenderness noted. NEUROLOGIC EXAMINATION: Patient is awake, alert and oriented x3. IMPRESSION AND PLAN: CAD status post multiple PCI Hypertension Hyperlipidemia Diabetes type 2 COPD Acute on chronic systolic heart failure Worsened cardiomyopathy, may be related to uncontrolled HTN vs CAD Dyspnea Lower extremity edema Medication noncompliance NSTEMI likely type II related to elevated blood pressure PLAN: Echo showing new drop in EF Continue to monitor blood pressure. May need to increase spironolactone if blood pressures not well-controlled. Continue heparin drip. May need cath pending progress We will follow. I am dictating on behalf of Dr. Kirk Lakhani's history/physical and assessment/plan. Past Medical History Past Medical History: Coronary Artery Disease (CAD), Cancer, Heart Failure, Diabetes Mellitus, Hypertension, Myocardial Infarction (NV), Osteoarthritis (OA), Prostate Disorder, Sleep Apnea/CPAP/BIPAP, Vascular Disorder Additional Past Medical History / Comment(s): Hx NV X4. Hx Covid /, had mononucal antibodies (with reaction), still has residual vertigo, aches and pains and brain fog. Neuropathy bilateral feet. CPAP use. 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 Slight BPH, elevate PSA. PVD. Thoracic Aortic Aneurysm. Last Myocardial Infarction Date:: 08/11/19 History of Any Multi-Drug Resistant Organisms: None Reported Past Surgical History: Cholecystectomy, Heart Catheterization, Heart Catheterization With Stent, Joint Replacement, Orthopedic Surgery Additional Past Surgical History / Comment(s): PCI with a total of 7 stents, bi lateral knee ACLs, total left knee arthroplasty, right knee arthroscopy, bilateral surgery on elbows, right ear cancer/reconstructive surgery, all teeth removed. Past Anesthesia/Blood Transfusion Reactions: No Reported Reaction Additional Past Anesthesia/Blood Transfusion Reaction / Comment(s): Couldn't urinate after gallbladder surgery, had to be straight cathed X1. Date of Last Stent Placement:: 2017 Past Psychological History: No Psychological Hx Reported Smoking Status: Former smoker Past Alcohol Use History: Rare Past Drug Use History: None Reported - Past Family History Father Family Medical History: Dementia Additional Family Medical History / Comment(s): Father is . Mother Family Medical History: Cancer Additional Family Medical History / Comment(s): MOTHER OF CANCER-FOUND IN LIVER-PRIMARY NEVER KNOWN. Medications and Allergies Home Medications Medication Instructions Recorded Confirmed Type Aspirin 81 mg PO DAILY #302 chew 03/17/17 04/02/23 Rx Clopidogrel [Plavix] 75 mg PO DAILY 04/02/17 04/02/23 History Losartan Potassium 100 mg PO DAILY 04/04/21 04/02/23 History Potassium Chloride [Klor-Con M20] 20 meq PO BID 10/11/21 04/02/23 History Atorvastatin [Lipitor] 40 mg PO DAILY 04/02/23 04/02/23 History Budesonide/Glycopyr/Formoterol 1 puff INHALATION RT-DAILY PRN 04/02/23 04/02/23 History [Breztri Aerosphere Inhaler] Furosemide [Lasix] 20 mg PO DAILY PRN 04/02/23 04/02/23 History Metoprolol Succinate (ER) [Toprol 50 mg PO BID 04/02/23 04/02/23 History Xl] Multivitamins, Thera [Multivitamin 1 tab PO DAILY 04/02/23 04/02/23 History (formulary)] Nitroglycerin Sl Tabs [Nitrostat] 0.4 mg SUBLINGUAL Q5M PRN 04/02/23 04/02/23 History Spironolactone [Aldactone] 25 mg PO DAILY 04/02/23 04/02/23 History Allergies Allergy/AdvReac Type Severity Reaction Status Date / Time Penicillins Allergy Unknown Unknown Verified 04/02/23 20:13 Childhood amlodipine [From Lotrel] AdvReac ITCHING/SWE Verified 04/02/23 20:13 LLING benazepril [From Lotrel] AdvReac ITCHING/SWE Verified 04/02/23 20:13 LLING Physical Exam Vitals: Vital Signs Temp Pulse Resp BP Pulse Ox 04/03/23 12:07 98.2 F 78 20 143/105 95 04/03/23 11:50 83 20 95 04/03/23 10:15 75 17 148/95 96 04/03/23 08:45 94 20 164/86 95 04/03/23 07:30 98.7 F 87 17 151/97 95 04/03/23 06:57 82 16 143/95 95 04/03/23 05:03 81 16 159/143 95 04/03/23 03:00 74 16 159/83 96 04/03/23 02:00 79 16 177/117 96 04/03/23 01:00 75 20 151/104 94 L 04/02/23 23:00 96 18 211/160 96 04/02/23 22:00 87 23 186/134 96 04/02/23 21:33 92 20 186/134 97 04/02/23 20:31 86 16 168/143 95 04/02/23 19:29 86 16 182/139 95 04/02/23 19:21 18 04/02/23 18:08 99.2 F 70 22 203/129 93 L Intake and Output 04/02/23 04/03/23 04/03/23 22:59 06:59 14:59 Intake Total 101.157 Output Total 800 300 Balance -800 -198.843 Intake: Intake, IV Titration 101.157 Amount Heparin Sod,Pork in 0.45% 101.157 NaCl 25,000 unit In 0.45 % NaCl 1 250ml.bag @ 6.58 UNITS/KG/HR 9.999 mls/hr IV .Q24H [facility] Rx#: [id number] Output: Urine 800 300 Other: Weight 151.953 kg Results 04/03/23 06:23 04/04/23 05:58 Cardiac Enzymes 04/02/23 04/02/23 04/03/23 Range/Units 18:49 18:49 06:03 AST 32 (17-59) U/L Troponin I 0.117 H* 0.108 H* (0.000-0.034) ng/mL Coagulation 04/02/23 04/03/23 Range/Units 18:49 06:23 PT 11.0 11.3 (10.0-12.5) sec APTT 23.9 23.0 (22.0-30.0) sec CBC 04/02/23 04/03/23 Range/Units 18:49 06:23 WBC 11.3 H 7.7 (3.8-10.6) k/uL RBC 5.25 4.84 (4.30-5.90) m/uL Hgb 15.6 14.3 (13.0-17.5) gm/dL Hct 47.2 44.5 (39.0-53.0) % Plt Count 292 246 (150-450) k/uL Comprehensive Metabolic Panel 04/02/23 04/03/23 Range/Units 18:49 06:23 Sodium 143 140 (137-145) mmol/L Potassium 3.6 3.7 (3.5-5.1) mmol/L Chloride 109 H 109 H (98-107) mmol/L Carbon Dioxide 25 23 (22-30) mmol/L BUN 11 13 (9-20) mg/dL Creatinine 0.83 0.98 (0.66-1.25) mg/dL Glucose 119 H 125 H (74-99) mg/dL Calcium 9.4 9.0 (8.4-10.2) mg/dL AST 32 (17-59) U/L ALT 36 (4-49) U/L Alkaline Phosphatase 108 (38-126) U/L Total Protein 6.7 (6.3-8.2) g/dL Albumin 4.0 (3.5-5.0) g/dL Current Medications Generic Name Dose Route Start Last Admin Trade Name Freq PRN Reason Stop Dose Admin Aspirin 81 mg 04/03/23 09:00 04/03/23 08:45 Aspirin 81 Mg PO 81 mg DAILY [facility] Administration Atorvastatin Calcium 40 mg 04/03/23 09:00 04/03/23 08:46 Atorvastatin 40 Mg Tab PO 40 mg DAILY [facility] Administration Clopidogrel Bisulfate 75 mg 04/02/23 22:15 04/03/23 08:46 Clopidogrel 75 Mg Tab PO 75 mg DAILY [facility] Administration Furosemide 40 mg 04/03/23 09:00 04/03/23 08:47 Furosemide 10 Mg/Ml 4 Ml Vial IV 40 mg Q12HR [facility] Administration Heparin Sodium (Porcine) 0 unit 04/02/23 22:01 04/03/23 08:56 Heparin Sodium 1,000 Un/Ml (10ml Vl) IV 4,000 unit PER PROTOCOL PRN Administration Low PTT Protocol Heparin Sodium/Sodium Chloride 250 mls @ 9.999 mls/hr 04/02/23 22:15 04/03/23 08:56 25,000 unit/ Sodium Chloride IV 9.58 units/kg/hr .Q24H [facility] 14.557 mls/hr Titration Protocol 6.58 UNITS/KG/HR Losartan Potassium 100 mg 04/03/23 09:00 04/03/23 08:46 Losartan 50 Mg Tab PO 100 mg DAILY ABBI Administration Metoprolol Succinate 50 mg 04/03/23 09:00 04/03/23 08:46 Metoprolol Succinate (Er) 50 Mg Tab.Er.24h PO 50 mg BID ABBI Administration Multivitamins 1 each 04/03/23 09:00 04/03/23 08:45 Multivitamins, Thera 1 Each Tab PO 1 each DAILY [facility]BI Administration Naloxone HCl 0.2 mg 04/02/23 21:43 Naloxone 0.4 Mg/Ml 1 Ml Vial IV Q2M PRN Opioid Reversal Non-Formulary Medication 1 puff 04/02/23 22:23 Budesonide/Glycopyr/Formoterol [Breztri Aerosphere Inhaler] INHALATION RT-DAILY PRN Shortness Of Breath Potassium Chloride 20 meq 04/03/23 09:00 04/03/23 08:46 Potassium Chloride Er 20 Meq Tab.Er PO 20 meq BID ABBI Administration Spironolactone 25 mg 04/03/23 09:00 04/03/23 08:46 Spironolactone 25 Mg Tab PO 25 mg DAILY ABBI Administration Intake and Output 04/02/23 04/03/23 04/03/23 22:59 06:59 14:59 Intake Total 101.157 Output Total 800 300 Balance -800 -198.843 Intake: Intake, IV Titration 101.157 Amount Heparin Sod,Pork in 0.45% 101.157 NaCl 25,000 unit In 0.45 % NaCl 1 250ml.bag @ 6.58 UNITS/KG/HR 9.999 mls/hr IV .Q24H [facility] Rx#: [id number] Output: Urine 800 300 Other: Weight 151.953 kg 04/03/23 06:23 04/03/23 06:23
--- NOTE | 2023-04-03 12:49 | CA ---
Transthoracic Echo Report Name: Roderick Chauhan Age: 67 Gender: M : 1955 Exam Date: 04/03/2023 08:59 Exam Location: [facility] Ht (in): 77 Wt (lb): 335 Ordering Physician: Seth Hernandez MD Attending/Referring Phys: Mainframe Programmer Luke Verde RD Procedure CPT: Indications: chf Cardiac Hx: Technical Quality: Technically difficult study Contrast 1: Definity Total Dose (mL): 2 Contrast 2: Total Dose (mL): MEASUREMENTS (Male / Female) Normal Values 2D ECHO LV Diastolic Diameter PLAX 6.0 cm 4.2 - 5.9 / 3.9 - 5.3 cm LV Systolic Diameter PLAX 4.8 cm IVS Diastolic Thickness 1.6 cm 0.6 - 1.0 / 0.6 - 0.9 cm LVPW Diastolic Thickness 1.8 cm 0.6 - 1.0 / 0.6 - 0.9 cm LV Relative Wall Thickness 0.6 RV Internal Dim ED PLAX 3.3 cm LVOT Diameter 2.2 cm Aortic Root Diameter 3.8 cm LA Systolic Diameter LX 2.9 cm 3.0 - 4.0 / 2.7 - 3.8 cm Ascending Aorta Diameter 4.3 cm DOPPLER AV Peak Velocity 101.6 cm/s AV Peak Gradient 4.1 mmHg LVOT Peak Velocity 75.6 cm/s LVOT Peak Gradient 2.3 mmHg LVOT Velocity Time Integral 14.8 cm LVOT Stroke Volume 56.3 cm??? LVOT Stroke Volume Index 20.2 ml/m??? LVOT Cardiac Index 1423.1 cm???/min???m??? AV Area Cont Eq pk 2.8 cm??? MV Peak Velocity 63.7 cm/s MV Peak Gradient 1.6 mmHg MV Mean Velocity 38.2 cm/s MV Mean Gradient 0.7 mmHg MV Velocity Time Integral 24.6 cm Mitral E Point Velocity 64.2 cm/s Mitral A Point Velocity 64.2 cm/s Mitral E to A Ratio 1.0 MV Deceleration Time 232.7 ms PV Peak Velocity 121.5 cm/s PV Peak Gradient 5.9 mmHg FINDINGS Left Ventricle Mild left ventricular dilatation. Mild to moderate concentric LVH. Left ventricular ejection fraction is estimated at 30-35 %. Right Ventricle Normal right ventricular size. Right Atrium Normal right atrial size. Left Atrium Normal left atrial size. Mitral Valve Mitral valve not well visualized. No mitral regurgitation. No mitral stenosis. Aortic Valve Aortic valve not well visualized. Mild AI. Tricuspid Valve Tricuspid valve not well visualized. Trace TR.. Pulmonic Valve Pulmonic valve not well visualized. No pulmonic regurgitation. Pericardium Not well visualized. Aorta AO root samantha= 3.8cm. Ascending AO samantha= 4.3cm CONCLUSIONS Technicallydifficult and limited poor quality study. Left ventricular ejection fraction is estimated at 30-35 %. Mild to moderate concentric LVH. Wall motion abnormality could not be assessed No significant valvular dysfunction Previewed by: Dr Joe Thornton (Electronically Signed) Final Date: 03 April 2023 12:48
[2023-04-03 16:48] LABS: Glucose,Whole Blood 105 mg/dL (70-110)
[2023-04-03] MEDS: HEPARIN SOD,PORK IN 0.45% NACL 25,000 UNIT in 0.45% NACL 1 250ML.BAG IV SCH (17:04)
[2023-04-03] MEDS ORDERED: IBUPROFEN 400 MG TAB PO PRN (17:14)
[2023-04-03] MEDS ORDERED: IBUPROFEN 800 MG TAB PO STA (17:14)
[2023-04-04] MEDS: HEPARIN SODIUM 1,000 UN/ML (10ML VL) IV PRN (06:27)
[2023-04-04] MEDS: HEPARIN SOD,PORK IN 0.45% NACL 25,000 UNIT in 0.45% NACL 1 250ML.BAG IV SCH ×2 (06:57→18:28)
[2023-04-04 07:08] LABS: African American GFR (CKD) >90 (>60 ml/min/1.73 sqM); Anion Gap 5 mmol/L; Blood Urea Nitrogen 14 mg/dL (9-20); Calcium 8.8 mg/dL (8.4-10.2); Carbon Dioxide 26 mmol/L (22-30); Chloride 110 mmol/L (98-107); Glucose 136 mg/dL (74-99); Non-African American GFR(CKD) 90 (>60 ml/min/1.73 sqM); Sodium 141 mmol/L (137-145)
[2023-04-04] MEDS: ASPIRIN 81 MG PO SCH (08:33)
[2023-04-04] MEDS: MULTIVITAMINS, THERA 1 EACH TAB PO SCH (08:33)
[2023-04-04] MEDS: CLOPIDOGREL 75 MG TAB PO SCH (08:33)
[2023-04-04] MEDS: SPIRONOLACTONE 25 MG TAB PO SCH (08:33)
[2023-04-04] MEDS: METOPROLOL SUCCINATE (ER) 50 MG TAB.ER.24H PO SCH ×2 (08:34→20:22)
[2023-04-04] MEDS: ATORVASTATIN 40 MG TAB PO SCH (08:34)
[2023-04-04] MEDS: POTASSIUM CHLORIDE ER 20 MEQ TAB.ER PO SCH ×2 (08:34→20:22)
[2023-04-04] MEDS: LOSARTAN 50 MG TAB PO SCH (08:34)
[2023-04-04] MEDS: FUROSEMIDE 10 MG/ML 4 ML VIAL IV SCH ×3 (08:43→20:22)
[2023-04-04] MEDS: POTASSIUM CHLORIDE 10 MEQ in WATER FOR INJECTION 1 100ML.BAG IVPB SCH ×8 (08:46→23:01)
[2023-04-04] MEDS ORDERED: SPIRONOLACTONE 25 MG TAB PO STA (10:34)
--- NOTE | 2023-04-04 12:51 | P.PN ---
Subjective Progress Note Date: 04/04/23 Consult reason: hypertension, shortness of breath, other (elevated troponin) Chief complaint: Shortness of breath History of present illness: History of present illness: Patient is a pleasant 67-year-old male with significant past medical history of hypertension, hyperlipidemia, diabetes type 2, CAD status post PCI, diastolic heart failure, COPD who presented because of shortness of breath and lower extremity edema. He does follow-up with Dr. Aguillon in the office however it has been a while. He does admit that he ran out today if several of his medications recently. He has been feeling worsening shortness of breath and congestion. He denies any chest pain or pressure. Blood pressure was significantly elevated upon arrival to the emergency department 203/129. Labs reviewed: Troponin elevated 0.117, 0.108, BNP 1490, creatinine 0.98, potassium 3.7. EKG was read out as A-fib however upon review this is sinus rhythm with PACs. He is currently on a heparin drip. He did have prior heart catheterization 10/2021 wh ich showed patent stents of the LAD and left circumflex, mild to moderate triple-vessel disease and he was recommended for medical therapy. 04/04 Patient is seen again today in the emergency center waiting for a bed on the cardiac stepdown unit. Blood pressure readings remain quite high consistently. He is currently on IV Lasix 40 mg every 12 hours. He states his breathing is okay he has less lower extremity edema. He denies any chest pain. His potassium has been replaced. He remains on a heparin drip for another 24 hours. Echocardiogram reveals EF of 30 to 35% mild AI. Mild to moderate concentric left ventricular hypertrophy. No significant valvular dysfunction. Technically difficult study and limited. Results of the echocardiogram reviewed with the patient. Cardiac catheterization performed 10/16/[address] Aguillon revealed calcified coronary arteries. Patent stent in the LAD and left circumflex. Mild to moderate triple-vessel disease. Right dominance. Reviewed these results with the patient and recommend cardiac catheterization once respiratory status is sta ble. PHYSICAL EXAMINATION: This is a 67-year-old male in no apparent distress at the time of my examination. HEENT: Head is atraumatic, normocephalic. Pupils are equal, round. Sclerae ani cteric. Conjunctivae are clear. Mucous membranes of the mouth are moist. Neck is supple. There is no jugular venous distention. No carotid bruit is heard. CHEST EXAMINATION: Lungs are clear to auscultation. No chest wall tenderness is noted on palpation or with deep breathing. HEART EXAMINATION: Heart regular rate and rhythm. S1, S2 heard. No murmurs, gallops or rub. ABDOMEN: Soft, nontender. Bowel sounds are heard. EXTREMITIES: 2+ peripheral pulses with +1 BLE edema and no calf tenderness no carlos. NEUROLOGIC EXAMINATION: Patient is awake, alert and oriented x3. IMPRESSION AND PLAN: CAD status post multiple PCI Hypertension Hyperlipidemia Diabetes type 2 COPD Diastolic heart failure, chronic Dyspnea Lower extremity edema Medication noncompliance NSTEMI likely type II related to elevated blood pressure PLAN: Continue to monitor blood pressure. Increase Aldactone to 100 mg daily and additional dose of 75 now Continue patient on current cardiac medications Continue oral potassium for now as potassium has been low. Will reevaluate need for potassium tomorrow. Continue heparin drip for 24 hours. Continue IV Lasix 40 mg every 12 hours Monitor CLAIR, daily weights, electrolytes and renal function Plan for cardiac catheterization once heart failure symptoms are stable. I am dictating on behalf of Dr. Kirk Lakhani's history/physical and assessment/plan. Objective - Vital Signs Vital signs: Vital Signs Temp 97.0 F L 04/04/23 08:26 Pulse 84 04/04/23 09:46 Resp 18 04/04/23 09:46 BP 202/137 04/04/23 09:46 Pulse Ox 97 04/04/23 09:46 FiO2 Intake & Output 04/03/23 04/04/23 04/04/23 18:59 06:59 18:59 Intake Total 219.934 250.000 Output Total 720 320 450 Balance -500.066 -70.000 -450 Intake: Intake, IV Titration 219.934 250.000 Amount Heparin Sod,Pork in 0.45% 219.934 250.000 NaCl 25,000 unit In 0.45 % NaCl 1 250ml.bag @ 6.58 UNITS/KG/HR 9.999 mls/hr IV .Q24H [facility] Rx#: [id number] Output: Urine 720 320 450 - Labs CBC & Chem 7: 04/03/23 06:23 04/04/23 05:58 Labs: Abnormal Lab Results - Last 24 Hours (Table) 0204/03/23 04/03/23 Range/Units 12:34 14:53 22:32 APTT 33.0 H 30.5 H (22.0-30.0) sec Potassium (3.5-5.1) mmol/L Chloride (98-107) mmol/L Glucose (74-99) mg/dL Troponin I 0.092 H* (0.000-0.034) ng/mL 04/04/23 Range/Units 05:58 APTT (22.0-30.0) sec Potassium 3.0 L (3.5-5.1) mmol/L Chloride 110 H (98-107) mmol/L Glucose 136 H (74-99) mg/dL Troponin I (0.000-0.034) ng/mL
--- NOTE | 2023-04-04 13:28 | P.PN ---
Subjective Progress Note Date: 04/04/23 Patient is a 67-year-old male with a PMH of diastolic CHF, CAD status post numerous stents, COPD, type II DM, hypertension, hyperlipidemia, obstructive sleep apnea who presents to the emergency room with complaints of shortness of breath and lower extremity edema along with intermittent chest pain. Reports compliance with daily Lasix 20 mg p.o. but did run out of his Plavix over a month ago and has been unable to see his air pollution auditor. Chest x-ray in the emergency room showed cardiomegaly and pulmonary vascular congestion with laboratory evaluation showing leukocytosis of 11.3, troponin 0.117, proBNP 1490, total bilirubin 1.5. The patient's SpO2 upon arrival was 93% on room air with BP 203/129 with respiratory rate 22 and pulse 70 with a temp 99.2 F. Started on Lasix 40 mg IV BID and started on heparin drip with Cardiology consulted. 04/03 Patient was seen and examined. He reports improvement in his breathing. BP 148/95, 96% on 2L NC. CBC unremakable. Coag panel within normal limits. CMP Cl 109, glu 125. Repeat troponin 0.108. 04/04 Patient was seen and examined. He reports improvement in his breathing and lower extremity swelling. APTT 68.6. BMP K 3, Cl 110, glu 136. Cardiology recommends 24H heparin drip continuation, continue lasix, monitor electrolytes, increased Aldactone with plans for cardiac cath once heart failure is stable. Echo showed EF 30-35% with mild-mod LVH. General: Non toxic, no distress, appears at stated age Derm: Warm, dry Head: Atraumatic, normocephalic, symmetric Eyes: EOMI, no lid lag, anicteric sclera Mouth: No lip lesion, mucus membranes moist Cardiovascular: S1S2 reg, no murmur Lungs: Decreased BS bilateral, no rhonchi, no rales, no accessory muscle use Ext: No gross muscle atrophy, 1+ edema, no contractures Neuro: no focal neuro deficits Psych: Alert, oriented, appropriate affect Based on my assessment of this patient, this patient meets a high complexity level of care. Patient has a CHF with severe exacerbation or progression of disease which poses a threat to life or bodily function. Acute combined systolic diastolic CHF exacerbation: Lasix 40 mg IV BID. Strict intake and outtake. Daily weights. Acute drop in EF since previous Echo, Ca rdiology recommending cardiac cath once CHF stable. Cardiology on board. Atrial fibrillation: Continue low intensity heparin drip. Metoprolol 50 mg PO BID. Elevated troponin: Flat. Likely demand from hypertensive urgency. Hypertensive urgency: Improved. Metoprolol as above. Losartan 100 mg PO QD. Added Aldactone 100 mg PO QD. Hypokalemia: Continue KCl 20 meq PO BID. KCl 40 meq IV x 1 ordered today. Resolved: Leukocytosis Chronic conditions: Type II DM, COPD, hypertension, hyperlipidemia, obstructive sleep apnea CODE STATUS: FULL CODE. DVT Prophylaxis: Heparin drip GI Prophylaxis: Designated medical POA if patient is not able to make medical decisions for themselves: I have reviewed the following diet consultant notes: Cardiology I have reviewed the results of the following tests: APTT. BMP. Echo. I have ordered the following tests: BMP. I have discussed the care of this patient with the following independent historian: I have independently interpreted the following test below: I have discussed the management of this patient with the following physician: This patient has a high risk of morbidity due to the following reasons: Patient requires IV lasix which requires intensive monitoring for renal toxicity. Patient requires IV heparin which requires intensive monitoring for toxicity (coag panel) and bleeding. Objective - Vital Signs Vital signs: Vital Signs Temp 97.0 F L 04/04/23 08:26 Pulse 87 04/04/23 12:17 Resp 18 04/04/23 12:17 BP 161/131 04/04/23 12:17 Pulse Ox 95 04/04/23 12:17 FiO2 Intake & Output 04/03/23 04/04/23 04/04/23 18:59 06:59 18:59 Intake Total 219.934 250.000 Output Total 757 876 5401 Balance -500.066 -70.000 -1370 Intake: Intake, IV Titration 219.934 250.000 Amount Heparin Sod,Pork in 0.45% 219.934 250.000 NaCl 25,000 unit In 0.45 % NaCl 1 250ml.bag @ 6.58 UNITS/KG/HR 9.999 mls/hr IV .Q24H [facility] Rx#: [id number] Output: Urine 765 176 7078 Other: # Voids 3 - Labs CBC & Chem 7: 04/03/23 06:23 04/04/23 05:58 Labs: Abnormal Lab Results - Last 24 Hours (Table) 04/03/23 04/03/23 04/03/23 Range/Units 12:34 14:53 22:32 APTT 33.0 H 30.5 H (22.0-30.0) sec Potassium (3.5-5.1) mmol/L Chloride (98-107) mmol/L Glucose (74-99) mg/dL Troponin I 0.092 H* (0.000-0.034) ng/mL 04/04/23 04/04/23 Range/Units 05:58 09:47 APTT 68.6 H (22.0-30.0) sec Potassium 3.0 L (3.5-5.1) mmol/L Chloride 110 H (98-107) mmol/L Glucose 136 H (74-99) mg/dL Troponin I (0.000-0.034) ng/mL
[2023-04-04] MEDS: hydrALAZINE HCL 25 MG TAB PO SCH ×2 (14:26→20:22)
[2023-04-04] MEDS ORDERED: hydrALAZINE HCL 20 MG/ML 1 ML VIAL IVP PRN (15:22)
--- NOTE | 2023-04-04 16:20 | US ---
EXAMINATION TYPE: US renal artery duplex completa DATE OF EXAM: 04/04/2023 COMPARISON: None CLINICAL INDICATION: Male, 67 years old with history of uncontrolled htn; HTN- pt states he recently stopped taking his meds MEASUREMENTS: RENAL SIZE: Right Kidney: 12.2 x 5.3 x 5.0 cm Left Kidney: 12.3 x 5.3 x 4.6 cm Right Kidney: No evidence of hydro- hypoechoic lesion mid= 1.4 x 1.3 x 1.3 cm Left Kidney: Limited views, no evidence of hydro Abd Aorta: Ectatic with calcifications, distal measurement= 2.8 cm RESISTANCE INDEX Right: 0.6 Left: 0.6 RA/AO RATIO (< 3.5 ) Right: 1.4 Left: 1.0 RENAL ARTERY VELOCITY ( < 180 cm/s) Right: 103.6 Left: 75.2 Exercise Planner Notes: Morbidly obese pt, pt unable to hold breath, very difficult/limited exam unable to visualize renal arteries in its entirety bilaterally- only able to visualize left distal renal ar jaden IMPRESSION: 1. Marked exam limitations as mentioned above. On the left, only able to visualize the distal portion of the renal artery. Based on the acquired Doppler measurements, no findings of renal artery stenosi s. If persistent concern, thin cut CT angiography can be considered. 2. Possible subtle 1.4 cm mid pole cortical lesion on the right. This may represent a cyst or a small solid mass. This can be further assessed on the follow-up CT.
[2023-04-05] MEDS: HEPARIN SOD,PORK IN 0.45% NACL 25,000 UNIT in 0.45% NACL 1 250ML.BAG IV SCH (04:27)
[2023-04-05] MEDS: ATORVASTATIN 40 MG TAB PO SCH (09:16)
[2023-04-05] MEDS: FUROSEMIDE 10 MG/ML 4 ML VIAL IV SCH ×2 (09:16→20:11)
[2023-04-05] MEDS: METOPROLOL SUCCINATE (ER) 50 MG TAB.ER.24H PO SCH (09:16)
[2023-04-05] MEDS: SPIRONOLACTONE 25 MG TAB PO SCH (09:16)
[2023-04-05] MEDS: MULTIVITAMINS, THERA 1 EACH TAB PO SCH (09:16)
[2023-04-05] MEDS: hydrALAZINE HCL 25 MG TAB PO SCH ×4 (09:16→23:04)
[2023-04-05] MEDS: ASPIRIN 81 MG PO SCH (09:16)
[2023-04-05] MEDS: POTASSIUM CHLORIDE ER 20 MEQ TAB.ER PO SCH ×2 (09:16→20:10)
[2023-04-05] MEDS: LOSARTAN 50 MG TAB PO SCH (09:16)
[2023-04-05] MEDS: CLOPIDOGREL 75 MG TAB PO SCH (09:16)
[2023-04-05] MEDS ORDERED: hydrALAZINE HCL 25 MG TAB PO SCH (09:45)
--- NOTE | 2023-04-05 10:43 | P.PN ---
Subjective Progress Note Date: 04/05/23 Consult reason: hypertension, shortness of breath, other (elevated troponin) Chief complaint: Shortness of breath History of present illness: History of present illness: Patient is a pleasant 67-year-old male with significant past medical history of hypertension, hyperlipidemia, diabetes type 2, CAD status post PCI, diastolic heart failure, COPD who presented because of shortness of breath and lower extremity edema. He does follow-up with Dr. Aguillon in the office however it has been a while. He does admit that he ran out today if several of his medications recently. He has been feeling worsening shortness of breath and congestion. He denies any chest pain or pressure. Blood pressure was significantly elevated upon arrival to the emergency department 203/129. Labs reviewed: Troponin elevated 0.117, 0.108, BNP 1490, creatinine 0.98, potassium 3.7. EKG was read out as A-fib however upon review this is sinus rhythm with PACs. He is currently on a heparin drip. He did have prior heart catheterization 10/2021 wh ich showed patent stents of the LAD and left circumflex, mild to moderate triple-vessel disease and he was recommended for medical therapy. 04/04 Patient is seen again today in the emergency center waiting for a bed on the cardiac stepdown unit. Blood pressure readings remain quite high consistently. He is currently on IV Lasix 40 mg every 12 hours. He states his breathing is okay he has less lower extremity edema. He denies any chest pain. His potassium has been replaced. He remains on a heparin drip for another 24 hours. Echocardiogram reveals EF of 30 to 35% mild AI. Mild to moderate concentric left ventricular hypertrophy. No significant valvular dysfunction. Technically difficult study and limited. Results of the echocardiogram reviewed with the patient. Cardiac catheterization performed 10/16/[address] Aguillon revealed calcified coronary arteries. Patent stent in the LAD and left circumflex. Mild to moderate triple-vessel disease. Right dominance. Reviewed these results with the patient and recommend cardiac catheterization once respiratory status is stable. 04/05 Yesterday, we increased Aldactone to 100 mg daily and added hydralazine 25 mg 3 times daily for blood pressure. Patient was continued on heparin drip for additional 24 hours. Patient is maintained on IV Lasix 40 mg every 12 hours. Patient is negative fluid balance 1661 this morning. Weights do not appear to be accurate. Blood pressure readings remain elevated 171/128 and heart rates in the 70s and 80s. Renal artery duplex no findings of renal artery stenosis. There is a subtle 1.4 cm cortical lesion on the right may represent cyst or small solid mass. PHYSICAL EXAMINATION: This is a 67-year-old male in no apparent distress at the time of my examination. HEENT: Head is atraumatic, normocephalic. Pupils are equal, round. Sclerae anicteric. Conjunctivae are clear. Mucous membranes of the mouth are moist. Neck is supple. There is no jugular venous distention. No carotid bruit is heard. CHEST EXAMINATION: Lungs are clear to auscultation. No chest wall tenderness is noted on palpation or with deep breathing. HEART EXAMINATION: Heart regular rate and rhythm. S1, S2 heard. No murmurs, gallops or rub. ABDOMEN: Soft, nontender. Bowel sounds are heard. EXTREMITIES: 2+ peripheral pulses with +1 BLE edema and no calf tenderness noted. NEUROLOGIC EXAMINATION: Patient is awake, alert and oriented x3. IMPRESSION AND PLAN: CAD status post multiple PCI Hypertension Hyperlipidemia Diabetes type 2 COPD Diastolic heart failure, chronic Dyspnea Lower extremity edema Medication noncompliance NSTEMI likely type II related to elevated blood pressure Ischemic cardiomyopathy with a EF of 30 to 35% systolic PLAN: Continue to monitor blood pressure. Continue Aldactone 100 mg daily Increase hydralazine to 100 mg 3 times daily Discontinue metorpolol and start Coreg 12.5 mg twice daily Continue patient on other cardiac medications Continue oral potassium for now as potassium has been low. Will reevaluate need for potassium tomorrow. Discontinue heparin drip Continue IV Lasix 40 mg every 12 hours Monitor CLAIR, daily weights, electrolytes and renal function Plan for cardiac catheterization as an OP. Possible discharge home tomorrow. Nurse practitioner note has been reviewed, I agree with documented findings and plan of care. Patient was seen and examined. Objective - Vital Signs Vital signs: Vital Signs Temp 97.9 F 04/05/23 09:11 Pulse 71 04/05/23 09:11 Resp 18 04/05/23 09:11 BP 171/128 04/05/23 09:11 Pulse Ox 96 04/05/23 09:11 FiO2 Intake & Output 04/04/23 04/05/23 04/05/23 18:59 06:59 18:59 Intake Total 472 256.345 Output Total 1370 1020 300 Balance -898 -763.655 -300 Weight 151.953 kg 156.2 kg Intake: IV 20 Invasive Line 1 10 Invasive Line 2 10 Intake, IV Titration 250 236.345 Amount Heparin Sod,Pork in 0.45% 250 236.345 NaCl 25,000 unit In 0.45 % NaCl 1 250ml.bag @ 6.58 UNITS/KG/HR 9.999 mls/hr IV .Q24H [facility] Rx#: [id number] Oral 222 Output: Urine 1370 1020 300 Other: Voiding Method Urinal # Voids 3 1 - Labs CBC & Chem 7: 04/03/23 06:23 04/04/23 17:28 Labs: Abnormal Lab Results - Last 24 Hours (Table) 04/04/23 04/04/23 Range/Units 09:47 17:28 APTT 68.6 H (22.0-30.0) sec Potassium 3.1 L (3.5-5.1) mmol/L
[2023-04-05 10:58] LABS: African American GFR (CKD) >90 (>60 ml/min/1.73 sqM); Anion Gap 7 mmol/L; Blood Urea Nitrogen 12 mg/dL (9-20); Carbon Dioxide 25 mmol/L (22-30); Chloride 110 mmol/L (98-107); Glucose 110 mg/dL (74-99); Non-African American GFR(CKD) 88 (>60 ml/min/1.73 sqM); Potassium 3.1 mmol/L (3.5-5.1); Sodium 142 mmol/L (137-145)
[2023-04-05] MEDS: POTASSIUM CHLORIDE 10 MEQ in WATER FOR INJECTION 1 100ML.BAG IVPB SCH ×3 (11:56→14:16)
--- NOTE | 2023-04-05 12:04 | P.PN ---
Subjective Progress Note Date: 04/05/23 Patient is a 67-year-old male with a PMH of diastolic CHF, CAD status post numerous stents, COPD, type II DM, hypertension, hyperlipidemia, obstructive sleep apnea who presents to the emergency room with complaints of shortness of breath and lower extremity edema along with intermittent chest pain. Reports compliance with daily Lasix 20 mg p.o. but did run out of his Plavix over a month ago and has been unable to see his core shaper. Chest x-ray in the emergency room showed cardiomegaly and pulmonary vascular congestion with laboratory evaluation showing leukocytosis of 11.3, troponin 0.117, proBNP 1490, total bilirubin 1.5. The patient's SpO2 upon arrival was 93% on room air with BP 203/129 with respiratory rate 22 and pulse 70 with a temp 99.2 F. Started on Lasix 40 mg IV BID and started on heparin drip with Cardiology consulted. 04/03 Patient was seen and examined. He reports improvement in his breathing. BP 148/95, 96% on 2L NC. CBC unremakable. Coag panel within normal limits. CMP Cl 109, glu 125. Repeat troponin 0.108. 04/04 Patient was seen and examined. He reports improvement in his breathing and lower extremity swelling. APTT 68.6. BMP K 3, Cl 110, glu 136. Cardiology recommends 24H heparin drip continuation, continue lasix, monitor electrolytes, increased Aldactone with plans for cardiac cath once heart failure is stable. Echo showed EF 30-35% with mild-mod LVH. 04/05 Patient was seen and examined. He reports improvement in his breathing and lower extremity swelling. Last night repeat K 3.1, 40 meq KCl IV ordered. APTT 70.7. BMP K 3.1, Cl 110, glu 110. BP remains elevated SBP ranging 148-202 and DBP 96-131. Maintained on Lasix 40 mg IV BID. Negative 750 cc balance over the past 24H. Discussed with Dr. Lakhani, switch Metoprolol to Coreg 12.5 mg PO BID and increase Hydralazine to 100 mg PO TID. Other antihypertensive medications include Losartan 100 mg PO QD, Aldactone 100 mg PO QD. General: Non toxic, no distress, appears at stated age Derm: Warm, dry Head: Atraumatic, normocephalic, symmetric Eyes: EOMI, no lid lag, anicteric sclera Mouth: No lip lesion, mucus membranes moist Cardiovascular: S1S2 reg, no murmur Lungs: Decreased BS bilateral, no rhonchi, no rales, no accessory muscle use Ext: No gross muscle atrophy, 1+ edema, no contractures Neuro: no focal neuro deficits Psych: Alert, oriented, appropriate affect Based on my assessment of this patient, this patient meets a high complexity level of care. Patient has a CHF with severe exacerbation or progression of disease which poses a threat to life or bodily function. Acute combined systolic diastolic CHF exacerbation: Lasix 40 mg IV BID. Strict intake and outtake. Daily weights. Acute drop in EF since previous Echo, Cardiology recommending cardiac cath once CHF stable, may be done outpatient. Cardiology on board. Atrial fibrillation: Continue low intensity heparin drip. Coreg 12.5 mg PO BID. Elevated troponin: Flat. Likely demand from hypertensive urgency. Hypertensive urgency: Improved. Hydralazine 100 mg PO TID + 10 mg IV Q4H PRN, Losartan 100 mg PO QD, Coreg 12.5 mg PO BID, Aldactone 100 mg PO QD. Hypokalemia: Continue KCl 20 meq PO BID. KCl 40 meq IV x 1 ordered. Resolved: Leukocytosis Chronic conditions: Type II DM, COPD, hypertension, hyperlipidemia, obstructive sleep apnea CODE STATUS: FULL CODE. DVT Prophylaxis: Lovenox. GI Prophylaxis: Designated medical POA if patient is not able to make medical decisions for themselves: I have reviewed the following databases software consultant notes: Cardiology I have reviewed the results of the following tests: Coag panel, BMP. I have ordered the following tests: BMP. I have discussed the care of this patient with the following independent historian: I have independently interpreted the following test below: I have discussed the management of this patient with the following physician: Discussed with Dr. Lakhani. This patient has a high risk of morbidity due to the following reasons: Patient requires IV lasix which requires intensive monitoring for renal toxicity. Objective - Vital Signs Vital signs: Vital Signs Temp 98.0 F 04/05/23 04:00 Pulse 88 04/05/23 04:00 Resp 18 04/05/23 04:00 BP 147/100 04/05/23 04:00 Pulse Ox 94 L 04/05/23 04:00 FiO2 Intake & Output 04/04/23 04/05/23 04/05/23 18:59 06:59 18:59 Intake Total 472 256.345 Output Total 1370 1020 Balance -898 -763.655 Weight 151.953 kg 156.2 kg Intake: IV 20 Invasive Line 1 10 Invasive Line 2 10 Intake, IV Titration 250 236.345 Amount Heparin Sod,Pork in 0.45% 250 236.345 NaCl 25,000 unit In 0.45 % NaCl 1 250ml.bag @ 6.58 UNITS/KG/HR 9.999 mls/hr IV .Q24H [facility] Rx#: [id number] Oral 222 Output: Urine 1370 1020 Other: Voiding Method Urinal # Voids 3 1 - Labs CBC & Chem 7: 04/03/23 06:23 04/05/23 08:42 Labs: Abnormal Lab Results - Last 24 Hours (Table) 04/04/23 04/04/23 Range/Units 09:47 17:28 APTT 68.6 H (22.0-30.0) sec Potassium 3.1 L (3.5-5.1) mmol/L
[2023-04-05] MEDS ORDERED: POTASSIUM CHLORIDE ER 20 MEQ TAB.ER PO STA (14:00)
[2023-04-05] MEDS: IPRATROPIUM 0.5 MG/2.5 ML NEBU INHALATION SCH ×2 (15:44→21:23)
[2023-04-05] MEDS: carvediloL 12.5 MG TAB PO SCH (16:34)
[2023-04-05] MEDS ORDERED: VANCOMYCIN 2,000 MG in SODIUM CHLORIDE 0.9% 500 ML 500 ML IVPB ONE (21:00)
[2023-04-05] MEDS: SYMBICORT 160-4.5 MCG INHALER INHALATION SCH (21:23)
[2023-04-06] MEDS: carvediloL 12.5 MG TAB PO SCH (06:29)
[2023-04-06] MEDS: SYMBICORT 160-4.5 MCG INHALER INHALATION SCH (08:22)
[2023-04-06] MEDS: IPRATROPIUM 0.5 MG/2.5 ML NEBU INHALATION SCH ×2 (08:22→11:59)
[2023-04-06] MEDS: ATORVASTATIN 40 MG TAB PO SCH (08:55)
[2023-04-06] MEDS: SPIRONOLACTONE 25 MG TAB PO SCH (08:55)
[2023-04-06] MEDS: LOSARTAN 50 MG TAB PO SCH (08:55)
[2023-04-06] MEDS: CLOPIDOGREL 75 MG TAB PO SCH (08:55)
[2023-04-06] MEDS: POTASSIUM CHLORIDE ER 20 MEQ TAB.ER PO SCH (08:55)
[2023-04-06] MEDS: MULTIVITAMINS, THERA 1 EACH TAB PO SCH (08:55)
[2023-04-06] MEDS: ASPIRIN 81 MG PO SCH (08:55)
[2023-04-06] MEDS: hydrALAZINE HCL 25 MG TAB PO SCH (08:56)
[2023-04-06] MEDS: FUROSEMIDE 10 MG/ML 4 ML VIAL IV SCH (08:56)
[2023-04-06] MEDS ORDERED: ENOXAPARIN 40 MG/0.4 ML SYRINGE SQ SCH (09:00)
[2023-04-06 09:17] VITALS: BP 142/80; RESP 16; TEMP 98.1
--- NOTE | 2023-04-06 11:05 | P.DS ---
Providers Date of admission: 04/02/23 21:43 Expected date of discharge: 04/06/23 Attending physician: Seth Hernandez MD Consults: 04/02/23 21:57 Consult Physician Urgent Consulting Provider: [facility] Consult Reason/Comments: acute chest pain, aechf, nstemi Do you want consulting provider notified?: Yes Primary care physician: [facility] Course: Patient is a 67-year-old male with a PMH of diastolic CHF, CAD status post numerous stents, COPD, type II DM, hypertension, hyperlipidemia, obstructive sleep apnea who presents to the emergency room with complaints of shortness of breath and lower extremity edema along with intermittent chest pain. Reports compliance with daily Lasix 20 mg p.o. but did run out of his Plavix over a month ago and has been unable to see his senior compliance analyst. Chest x-ray in the emergency room showed cardiomegaly and pulmonary vascular congestion with laboratory evaluation showing leukocytosis of 11.3, troponin 0.117, proBNP 1490, total bilirubin 1.5. The patient's SpO2 upon arrival was 93% on room air with BP 203/129 with respiratory rate 22 and pulse 70 with a temp 99.2 F. Started on Lasix 40 mg IV BID and started on heparin drip with Cardiology consulted. 04/03 Patient was seen and examined. He reports improvement in his breathing. BP 148/95, 96% on 2L NC. CBC unremakable. Coag panel within normal limits. CMP Cl 109, glu 125. Repeat troponin 0.108. 04/04 Patient was seen and examined. He reports improvement in his breathing and lower extremity swelling. APTT 68.6. BMP K 3, Cl 110, glu 136. Cardiology recommends 24H heparin drip continuation, continue lasix, monitor electrolytes, increased Aldactone with plans for cardiac cath once heart failure is stable. Echo showed EF 30-35% with mild-mod LVH. 04/05 Patient was seen and examined. He reports improvement in his breathing and lower extremity swelling. Last night repeat K 3.1, 40 meq KCl IV ordered. APTT 70.7. BMP K 3.1, Cl 110, glu 110. BP remains elevated SBP ranging 148-202 and DBP 96-131. Maintained on Lasix 40 mg IV BID. Negative 570 cc balance over the past 24H. Discussed with Dr. Lakhani, switch Metoprolol to Coreg 12.5 mg PO BID and increase Hydralazine to 100 mg PO TID. Other antihypertensive medications include Losartan 100 mg PO QD, Aldactone 100 mg PO QD. / Patient was seen and examined. He reports improvement in his breathing and lower extremity swelling. Apparently had a syncopal episode in bed yesterday due to pain from potassium infusion. Coag panel and BMP pending this morning. BP better controlled this morning at 142/80. Maintained on Lasix 40 mg IV BID. Negative 1.661 L balance over the past 24H. Possible discharge today if OK with Cardiology and potassium is improved. Antihypertensive medication includes Hydralazine 100 mg PO TID, Losartan 100 mg PO QD, Coreg 12.5 mg PO BID, Aldactone 100 mg PO QD. Outpatient follow up with Cardiology for cardiac cath. General: Non toxic, no distress, appears at stated age Derm: Warm, dry Head: Atraumatic, normocephalic, symmetric Eyes: EOMI, no lid lag, anicteric sclera Mouth: No lip lesion, mucus membranes moist Cardiovascular: S1S2 reg, no murmur Lungs: Decreased BS bilateral, no rhonchi, no rales, no accessory muscle use Ext: No gross muscle atrophy, trace BL LE edema, no contractures Neuro: no focal neuro deficits Psych: Alert, oriented, appropriate affect Discharge Diagnosis: Acute combined systolic diastolic CHF exacerbation Type II NSTEMI Hypertensive urgency Hypokalemia Resolved: Leukocytosis Chronic conditions: Type II DM, COPD, hypertension, hyperlipidemia, obstructive sleep apnea This complex discharge took 35 minutes to complete. Patient Condition at Discharge: Stable Plan - Discharge Summary Discharge Rx Participant: Yes New Discharge Prescriptions: No Action Aspirin 81 mg PO DAILY #302 chew Clopidogrel [Plavix] 75 mg PO DAILY Losartan Potassium 100 mg PO DAILY Potassium Chloride [Klor-Con M20] 20 meq PO BID Nitroglycerin Sl Tabs [Nitrostat] 0.4 mg SUBLINGUAL Q5M PRN PRN Reason: Chest Pain Metoprolol Succinate (ER) [Toprol Xl] 50 mg PO BID Furosemide [Lasix] 20 mg PO DAILY PRN PRN Reason: Edema Atorvastatin [Lipitor] 40 mg PO DAILY Budesonide/Glycopyr/Formoterol [Breztri Aerosphere Inhaler] 1 puff INHALATION RT-DAILY PRN PRN Reason: Shortness Of Breath Multivitamins, Thera [Multivitamin (formulary)] 1 tab PO DAILY Spironolactone [Aldactone] 25 mg PO DAILY Discharge Medication List Aspirin 81 mg PO DAILY #302 chew 03/17/17 [Rx] Clopidogrel [Plavix] 75 mg PO DAILY 04/02/17 [History] Losartan Potassium 100 mg PO DAILY 04/04/21 [History] Potassium Chloride [Klor-Con M20] 20 meq PO BID 10/11/21 [History] Atorvastatin [Lipitor] 40 mg PO DAILY 04/02/23 [History] Budesonide/Glycopyr/Formoterol [Breztri Aerosphere Inhaler] 1 puff INHALATION RT-DAILY PRN 04/02/23 [History] Furosemide [Lasix] 20 mg PO DAILY PRN 04/02/23 [History] Metoprolol Succinate (ER) [Toprol Xl] 50 mg PO BID 04/02/23 [History] Multivitamins, Thera [Multivitamin (formulary)] 1 tab PO DAILY 04/02/23 [History] Nitroglycerin Sl Tabs [Nitrostat] 0.4 mg SUBLINGUAL Q5M PRN 04/02/23 [History] Spironolactone [Aldactone] 25 mg PO DAILY 04/02/23 [History] Follow up Appointment(s)/Referral(s): Bryce Astudillo MD [Primary Care Provider] - 1-2 days
[2023-04-06 11:12] LABS: African American GFR (CKD) >90 (>60 ml/min/1.73 sqM); Anion Gap 10 mmol/L; Blood Urea Nitrogen 15 mg/dL (9-20); Calcium 9.5 mg/dL (8.4-10.2); Carbon Dioxide 23 mmol/L (22-30); Chloride 109 mmol/L (98-107); Glucose 155 mg/dL (74-99); Non-African American GFR(CKD) 82 (>60 ml/min/1.73 sqM); Potassium 3.6 mmol/L (3.5-5.1); Sodium 142 mmol/L (137-145)
[2023-04-06 12:27] VITALS: PULSE 85
--- NOTE | 2023-04-06 13:07 | P.PN ---
Subjective Progress Note Date: 04/06/23 Consult reason: hypertension, shortness of breath, other (elevated troponin) Chief complaint: Shortness of breath History of present illness: History of present illness: Patient is a pleasant 67-year-old male with significant past medical history of hypertension, hyperlipidemia, diabetes type 2, CAD status post PCI, diastolic heart failure, COPD who presented because of shortness of breath and lower extremity edema. He does follow-up with Dr. Aguillon in the office however it has been a while. He does admit that he ran out today if several of his medications recently. He has been feeling worsening shortness of breath and congestion. He denies any chest pain or pressure. Blood pressure was significantly elevated upon arrival to the emergency department 203/129. Labs reviewed: Troponin elevated 0.117, 0.108, BNP 1490, creatinine 0.98, potassium 3.7. EKG was read out as A-fib however upon review this is sinus rhythm with PACs. He is currently on a heparin drip. He did have prior heart catheterization 10/2021 wh ich showed patent stents of the LAD and left circumflex, mild to moderate triple-vessel disease and he was recommended for medical therapy. 04/04 Patient is seen again today in the emergency center waiting for a bed on the cardiac stepdown unit. Blood pressure readings remain quite high consistently. He is currently on IV Lasix 40 mg every 12 hours. He states his breathing is okay he has less lower extremity edema. He denies any chest pain. His potassium has been replaced. He remains on a heparin drip for another 24 hours. Echocardiogram reveals EF of 30 to 35% mild AI. Mild to moderate concentric left ventricular hypertrophy. No significant valvular dysfunction. Technically difficult study and limited. Results of the echocardiogram reviewed with the patient. Cardiac catheterization performed 10/16/[address] Aguillon revealed calcified coronary arteries. Patent stent in the LAD and left circumflex. Mild to moderate triple-vessel disease. Right dominance. Reviewed these results with the patient and recommend cardiac catheterization once respiratory status is stable. 04/05 Yesterday, we increased Aldactone to 100 mg daily and added hydralazine 25 mg 3 times daily for blood pressure. Patient was continued on heparin drip for additional 24 hours. Patient is maintained on IV Lasix 40 mg every 12 hours. Patient is negative fluid balance 1661 this morning. Weights do not appear to be accurate. Blood pressure readings remain elevated 171/128 and heart rates in the 70s and 80s. Renal artery duplex no findings of renal artery stenosis. There is a subtle 1.4 cm cortical lesion on the right may represent cyst or small solid mass. 2/ Patient's blood pressure has shown some improvement over the past 24 hours. Yesterday, we increased hydralazine to 100 mg 3 times daily and changed metoprolol to Coreg. Currently at 142/80. Heart rate is in the 60s and 70s. Patient has been maintained on IV Lasix 40 mg every 12 hours. Patient has had a negative fluid balance yesterday of 1660, this morning -1869. Weight is down 2 kg from yesterday. Heparin drip was also discontinued yesterday. PHYSICAL EXAMINATION: This is a 67-year-old male in no apparent distress at the time of my examination. HEENT: Head is atraumatic, normocephalic. Pupils are equal, round. Sclerae anicteric. Conjunctivae are clear. Mucous membranes of the mouth are moist. Neck is supple. There is no jugular venous distention. No carotid bruit is heard. CHEST EXAMINATION: Lungs are clear to auscultation. No chest wall tenderness is noted on palpation or with deep breathing. HEART EXAMINATION: Heart regular rate and rhythm. S1, S2 heard. No murmurs, gallops or rub. ABDOMEN: Soft, nontender. Bowel sounds are heard. EXTREMITIES: 2+ peripheral pulses with +1 BLE edema and no calf tenderness noted. NEUROLOGIC EXAMINATION: Patient is awake, alert and oriented x3. IMPRESSION AND PLAN: CAD status post multiple PCI Hypertension Hyperlipidemia Diabetes type 2 COPD Diastolic heart failure, chronic Dyspnea Lower extremity edema Medication noncompliance NSTEMI likely type II related to elevated blood pressure Ischemic cardiomyopathy with a EF of 30 to 35% systolic PLAN: Continue to monitor blood pressure. Continue Aldactone 100 mg daily, hydralazine 100 mg 3 times daily, Coreg 12.5 mg twice daily Continue patient on other cardiac medications Continue oral potassium for now as potassium has been low. Transition IV Lasix to oral 40 mg twice daily Monitor CLAIR, daily weights, electrolytes and renal function Plan for cardiac catheterization as an OP. Patient is cleared from cardiology for discharge. Patient to follow-up with Dr. Aguillon in 1 to 2 weeks. Nurse practitioner note has been reviewed, I agree with documented findings and plan of care. Patient was seen and examined. Objective - Vital Signs Vital signs: Vital Signs Temp 98.1 F 04/06/23 08:00 Pulse 71 04/06/23 08:00 Resp 16 04/06/23 08:00 BP 142/80 04/06/23 08:00 Pulse Ox 95 04/06/23 08:00 FiO2 Intake & Output 04/05/23 04/06/23 04/06/23 18:59 06:59 18:59 Intake Total 360 20 180 Output Total 900 1350 Balance -540 -1330 180 Weight 154 kg Intake: IV 20 Invasive Line 1 10 Invasive Line 2 10 Oral 360 180 Output: Urine 900 1350 Other: Voiding Method Urinal Urinal # Voids 1 - Labs CBC & Chem 7: 04/03/23 06:23 04/06/23 09:44 Labs: Abnormal Lab Results - Last 24 Hours (Table) 04/05/23 04/05/23 Range/Units 08:42 08:42 APTT 70.7 H (22.0-30.0) sec Potassium 3.1 L (3.5-5.1) mmol/L Chloride 110 H (98-107) mmol/L Glucose 110 H (74-99) mg/dL
== END 2023-04-06 13:58 | disposition home or self-care (01) | DRG 280 ==
LOC: EC 16:58 → 2CATHESU 21:43 → 3SCARD 04-03 05:33
PROVIDERS: ADMIT Internal Medicine; ATTEND Internal Medicine
DX: I11.0 Hypertensive heart disease with heart failure (principal); I21.A1 Myocardial infarction type 2; I50.43 Acute on chronic combined systolic (congestive) and diastolic (congestive) heart failure; E11.51 Type 2 diabetes mellitus with diabetic peripheral angiopathy without gangrene; Z87.19 Personal history of other diseases of the digestive system; E78.5 Hyperlipidemia, unspecified; G47.33 Obstructive sleep apnea (adult) (pediatric); I16.0 Hypertensive urgency; E87.6 Hypokalemia; I07.1 Rheumatic tricuspid insufficiency; J44.9 Chronic obstructive pulmonary disease, unspecified; I25.10 Atherosclerotic heart disease of native coronary artery without angina pectoris; I25.2 Old myocardial infarction; I25.5 Ischemic cardiomyopathy; I48.91 Unspecified atrial fibrillation; Z79.02 Long term (current) use of antithrombotics/antiplatelets; Z79.82 Long term (current) use of aspirin; Z79.899 Other long term (current) drug therapy; Z85.828 Personal history of other malignant neoplasm of skin; Z91.148 Patient's other noncompliance with medication regimen for other reason; Z96.652 Presence of left artificial knee joint; Z98.61 Coronary angioplasty status; Z90.49 Acquired absence of other specified parts of digestive tract
CPT/HCPCS: 36415; 71046; 80048; 80053; 83735; 83880; 84132; 84484; 85025; 85610; 85730; 93005; 93306; 93975; 94640; 96365; 96366; 96367; 96368; 96375; 96376; 99285

== ENCOUNTER 2023-06-27 15:59 | Observation (INO) | payer MEDICARE ==
--- NOTE | 2023-06-27 16:49 | ED ---
Dizziness HPI - General Source: patient, RN notes reviewed Mode of arrival: wheelchair Limitations: no limitations <Shirin Celeste - Last Filed: 06/27/23 17:08> - General Source: patient, family, RN notes reviewed Mode of arrival: wheelchair Limitations: no limitations <Alan Gutierrez - Last Filed: 06/27/23 21:04> - General Chief Complaint: Dizziness Stated Complaint: lightHeaded, fatigue, R side pain Time Seen by Provider: 06/27/23 16:10 - History of Present Illness Initial Comments: Quick Note -this is a 67-year-old male with history of congestive heart failure presents emergency department chief complaint of shortness of breath, lower extremity swelling and dizziness. Patient states that he has been experiencing the symptoms for over the past month. denies use of blood thinners. (Shirin Celeste) Patient is a 67-year-old male present to the emergency department not feeling well with several complaints. Symptoms have progressed since admission to the hospital 6 or 7 weeks ago. Patient still has dyspnea, especially on exertion. Patient has some discomfort in the chest as well. Patient has been having some lightheadedness. Patient has been very fatigued and limited activity. Patient has right flank pain. (Alan Gutierrez) - Related Data Home Medications Medication Instructions Recorded Confirmed Losartan Potassium 100 mg PO DAILY 04/04/21 06/27/23 Budesonide/Glycopyr/Formoterol 1 puff INHALATION RT-DAILY PRN 04/02/23 06/27/23 [Breztri Aerosphere Inhaler] Multivitamins, Thera [Multivitamin 1 tab PO DAILY 04/02/23 06/27/23 (formulary)] Nitroglycerin Sl Tabs [Nitrostat] 0.4 mg SUBLINGUAL Q5M PRN 04/02/23 06/27/23 Atorvastatin [Lipitor] 40 mg PO HS 06/27/23 06/27/23 Previous Rx's Medication Instructions Recorded Aspirin 81 mg PO DAILY #30 tab 04/06/23 Furosemide [Lasix] 40 mg PO BID #60 tablet 04/06/23 Potassium Chloride [Klor-Con M20] 20 meq PO BID #60 tab 04/06/23 Spironolactone [Aldactone] 100 mg PO DAILY #120 tab 04/06/23 hydrALAZINE HCL [Apresoline] 100 mg PO TID #90 tablet 04/06/23 Allergies Allergy/AdvReac Type Severity Reaction Status Date / Time Penicillins Allergy Severe Swelling Verified 06/27/23 19:08 amlodipine [From Lotrel] Allergy ITCHING/SWE Verified 06/27/23 19:08 LLING benazepril [From Lotrel] Allergy ITCHING/SWE Verified 06/27/23 19:08 LLING Review of Systems ROS Other: All systems not noted in ROS Statement are negative. <Shirin Celeste - Last Filed: 06/27/23 17:08> ROS Other: All systems not noted in ROS Statement are negative. Constitutional: Denies: fever Eyes: Denies: eye pain ENT: Denies: ear pain Respiratory: Reports: as per HPI, dyspnea Cardiovascular: Reports: as per HPI Endocrine: Reports: fatigue Gastrointestinal: Reports: as per HPI, abdominal pain Genitourinary: Denies: dysuria Skin: Denies: rash Neurological: Denies: weakness <Alan Gutierrez - Last Filed: 06/27/23 21:04> ROS Statement: Those systems with pertinent positive or pertinent negative responses have been documented in the HPI. Past Medical History Past Medical History: Coronary Artery Disease (CAD), Cancer, Heart Failure, Diabetes Mellitus, Hypertension, Myocardial Infarction (NH), Osteoarthritis (OA), Prostate Disorder, Sleep Apnea/CPAP/BIPAP, Vascular Disorder Additional Past Medical History / Comment(s): Hx NH X4. Hx Covid 02/20, had mononucal antibodies (with reaction), still has residual vertigo, aches and pains and brain fog. Neuropathy bilateral feet. CPAP use. Hx right ear basal cell skin cancer(removed). Slight BPH, elevate PSA. PVD. Thoracic Aortic Aneurysm. Last Myocardial Infarction Date:: 08/11/19 History of Any Multi-Drug Resistant Organisms: None Reported Past Surgical History: Cholecystectomy, Heart Catheterization, Heart Cathete rization With Stent, Joint Replacement, Orthopedic Surgery Additional Past Surgical History / Comment(s): PCI with a total of 7 stents, bilateral knee ACLs, total left knee arthroplasty, right knee arthroscopy, bilateral surgery on elbows, right ear cancer/reconstructive surgery, all teeth removed. Past Anesthesia/Blood Transfusion Reactions: No Reported Reaction Additional Past Anesthesia/Blood Transfusion Reaction / Comment(s): Couldn't urinate after gallbladder surgery, had to be straight cathed X1. Date of Last Stent Placement:: 2017 Past Psychological History: No Psychological Hx Reported Smoking Status: Former smoker Past Alcohol Use History: Rare Past Drug Use History: None Reported - Past Family History Father Family Medical History: Dementia Additional Family Medical History / Comment(s): Father is . Mother Family Medical History: Cancer Additional Family Medical History / Comment(s): MOTHER OF CANCER-FOUND IN LIVER-PRIMARY NEVER KNOWN. <Shirin Celeste - Last Filed: 06/27/23 17:08> General Exam Limitations: no limitations <Shirin Celeste - Last Filed: 06/27/23 17:08> Limitations: no limitations General appearance: alert, in no apparent distress Head exam: Present: normocephalic Eye exam: Present: normal appearance, PERRL, EOMI Neck exam: Present: normal inspection. Absent: tenderness Respiratory exam: Present: normal lung sounds bilaterally Cardiovascular Exam: Present: regular rate, normal rhythm, normal heart sounds GI/Abdominal exam: Present: soft, tenderness (Mild tenderness right posterior flank) Extremities exam: Present: normal inspection. Absent: calf tenderness Neurological exam: Present: alert Psychiatric exam: Present: normal affect, normal mood Skin exam: Present: normal color <Alan Gutierrez - Last Filed: 06/27/23 21:04> - General Exam Comments Initial Comments: Visual Physical Exam Vital signs reviewed General: Well-appearing, nontoxic, no acute distress. Head: Normocephalic, atraumatic Eyes: PERRLA, EOMI ENT: Airway patent Chest: Nonlabored breathing Skin: No visual rash, normal skin tone Neuro: Alert and oriented 3 Musculoskeletal: No gross abnormalities (Shirin Celeste) Course Vital Signs 06/27/23 06/27/23 16:36 17:54 Temperature 98.7 F Pulse Rate 46 L 100 Respiratory 18 20 Rate Blood Pressure 99/67 87/68 O2 Sat by Pulse 96 95 Oximetry EKG Findings - EKG Results: EKG: interpreted by ERMD (Frequent PVCs present. Left axis. Right bundle branch block. Nonspecific ST-T.), sinus rhythm <Alan Gutierrez - Last Filed: 06/27/23 21:04> Medical Decision Making <Shirin Celeste - Last Filed: 06/27/23 17:08> - Lab Data Result diagrams: 06/27/23 18:02 06/27/23 17:06 <Alan Gutierrez - Last Filed: 06/27/23 21:04> - Medical Decision Making I completed the quick note portion of this chart signed Shirin Celeste PA-C (Shirin Celeste) Was pt. sent in by a medical professional or institution ([facility], [facility], urgent care, hospital, or prison...) When possible be specific @ -No Did you speak to anyone other than the patient for history (EMS, parent, family, police, friend...)? What history was obtained from this source @ -Family is present and helps provide additional history including previous admission Did you review nursing and triage notes (agree or disagree)? Why? @ -I reviewed and agree with nursing and triage notes Were old charts reviewed (outside hosp., previous admission, EMS record, old EKG, old radiological studies, urgent care reports/EKG's, prison records)? Report findings @ -Previous labs reviewed. Renal function is worsened today. Differential Diagnosis (chest pain, altered mental status, abdominal pain women, abdominal pain men, vaginal bleeding, weakness, fever, dyspnea, syncope, headache, dizziness, GI bleed, back pain, seizure, CVA, palpatations, mental he alth, musculoskeletal)? @ -Differential Dyspnea: Coronary syndrome, arrhythmia, tamponade, asthma, COPD, pulmonary embolism, pneumonia, pneumothorax, pulmonary effusion, anaphylaxis, diabetic ketoacidosis, flailed chest, pulmonary contusion, diaphragmatic rupture, anemia, neuromuscular, this is not meant to be an all-inclusive list. EKG interpreted by me (3pts min.). @ -As above X-rays interpreted by me (1pt min.). @ -Chest x-ray shows no acute process CT interpreted by me (1pt min.). @ -CT scan abdomen pelvis without definite abnormality acutely. Prostatic hypertrophy. U/S interpreted by me (1pt. min.). @ -None done What testing was considered but not performed or refused? (CT, X-rays, U/S, labs)? Why? @ -None What meds were considered but not given or refused? Why? @ -None Did you discuss the management of the patient with other professionals (professionals i.e. Dr., PA, [facility], lab, RT, psych nurse, social sciences department chair, global risk management director, teacher, light armored reconnaissance officer, caser shoe parts)? Give summary @ -Case was discussed with Dr. Shelby who will admit covering Dr. Astudillo Was smoking cessation discussed for >3mins.? @ -No Was critical care preformed (if so, how long)? @ -No Were there social determinants of health that impacted care today? How? (Homelessness, low income, unemployed, alcoholism, drug addiction, transportation, low edu. Level, literacy, decrease access to med. care, custodial, re hab)? @ -No Was there de-escalation of care discussed even if they declined (Discuss DNR or withdrawal of care, Hospice)? DNR status @ -No What co-morbidities impacted this encounter? (DM, HTN, Smoking, COPD, CAD, Cancer, CVA, ARF, Chemo, Hep., AIDS, mental health diagnosis, sleep apnea, morbid obesity)? @ -None Was patient admitted / discharged? Hospital course, mention meds given and route, prescriptions, significant lab abnormalities, going to OR and other pertinent info. @ -Patient reevaluated. Patient remains borderline hypotensive. Patient is updated on results and plan. Patient will be admitted. Admission orders written. Antihypertensives will be held at this time. Undiagnosed new problem with uncertain prognosis? @ -No Drug Therapy requiring intensive monitoring for toxicity (Heparin, Nitro, Insulin, Cardizem)? @ -No Were any procedures done? @ -No Diagnosis/symptom? @ -Chest pain with exertional dyspnea Acute, or Chronic, or Acute on Chronic? @ -Acute Uncomplicated (without systemic symptoms) or Complicated (systemic symptoms)? @ -Default Side effects of treatment? @ -No Exacerbation, Progression, or Severe Exacerbation? @ -No Poses a threat to life or bodily function? How? (Chest pain, USA, NH, pneumonia, PE, COPD, DKA, ARF, appy, cholecystitis, CVA, Diverticulitis, Homicidal, Suicidal, threat to staff... and all critical care pts) @ -No (Alan Gutierrez) - Lab Data Lab Results 06/27/23 06/27/23 06/27/23 Range/Units 17:06 17:06 17:06 WBC (3.8-10.6) k/uL RBC (4.30-5.90) m/uL Hgb (13.0-17.5) gm/dL Hct (39.0-53.0) % MCV (80.0-100.0) fL MCH (25.0-35.0) pg MCHC (31.0-37.0) g/dL RDW (11.5-15.5) % Plt Count (150-450) k/uL MPV Neutrophils % % Lymphocytes % % Monocytes % % Eosinophils % % Basophils % % Neutrophils # (1.3-7.7) k/uL Lymphocytes # (1.0-4.8) k/uL Monocytes # (0-1.0) k/uL Eosinophils # (0-0.7) k/uL Basophils # (0-0.2) k/uL Anisocytosis PT 11.3 (10.0-12.5) sec INR 1.0 (<1.2) Sodium 137 (137-145) mmol/L Potassium 5.3 H (3.5-5.1) mmol/L Chloride 105 (98-107) mmol/L Carbon Dioxide 19 L (22-30) mmol/L Anion Gap 13 mmol/L BUN 26 H (9-20) mg/dL Creatinine 1.66 H (0.66-1.25) mg/dL Est GFR (CKD-EPI)AfAm 49 (>60 ml/min/1.73 sqM) Est GFR (CKD-EPI)NonAf 42 (>60 ml/min/1.73 sqM) Glucose 146 H (74-99) mg/dL POC Glucose (mg/dL) (70-110) mg/dL POC Glu Vice President Of Nursing ID Lactic Ac Sepsis Rflx Plasma Lactic Acid Mike 2.6 H* (0.7-2.0) mmol/L Calcium 9.9 (8.4-10.2) mg/dL Phosphorus 3.8 (2.5-4.5) mg/dL Magnesium 1.8 (1.6-2.3) mg/dL Total Bilirubin 2.1 H (0.2-1.3) mg/dL AST 35 (17-59) U/L ALT 25 (4-49) U/L Alkaline Phosphatase 74 (38-126) U/L Troponin I (0.000-0.034) ng/mL NT-Pro-B Natriuret Pep 339 pg/mL Total Protein 7.7 (6.3-8.2) g/dL Albumin 4.5 (3.5-5.0) g/dL 06/27/23 06/27/23 06/27/23 Range/Units 17:06 17:36 18:02 WBC 16.3 H (3.8-10.6) k/uL RBC 4.59 (4.30-5.90) m/uL Hgb 14.1 (13.0-17.5) gm/dL Hct 42.7 (39.0-53.0) % MCV 93.0 (80.0-100.0) fL MCH 30.8 (25.0-35.0) pg MCHC 33.2 (31.0-37.0) g/dL RDW 16.4 H (11.5-15.5) % Plt Count 312 (150-450) k/uL MPV 8.3 Neutrophils % 73 % Lymphocytes % 17 % Monocytes % 6 % Eosinophils % 1 % Basophils % 0 % Neutrophils # 12.0 H (1.3-7.7) k/uL Lymphocytes # 2.8 (1.0-4.8) k/uL Monocytes # 1.0 (0-1.0) k/uL Eosinophils # 0.2 (0-0.7) k/uL Basophils # 0.1 (0-0.2) k/uL Anisocytosis Slight PT (10.0-12.5) sec INR (<1.2) Sodium (137-145) mmol/L Potassium (3.5-5.1) mmol/L Chloride (98-107) mmol/L Carbon Dioxide (22-30) mmol/L Anion Gap mmol/L BUN (9-20) mg/dL Creatinine (0.66-1.25) mg/dL Est GFR (CKD-EPI)AfAm (>60 ml/min/1.73 sqM) Est GFR (CKD-EPI)NonAf (>60 ml/min/1.73 sqM) Glucose (74-99) mg/dL POC Glucose (mg/dL) 165 H (70-110) mg/dL POC Glu Vice President Of Nursing ID Clark, Silvia Lactic Ac Sepsis Rflx Plasma Lactic Acid Mike (0.7-2.0) mmol/L Calcium (8.4-10.2) mg/dL Phosphorus (2.5-4.5) mg/dL Magnesium (1.6-2.3) mg/dL Total Bilirubin (0.2-1.3) mg/dL AST (17-59) U/L ALT (4-49) U/L Alkaline Phosphatase (38-126) U/L Troponin I 0.032 (0.000-0.034) ng/mL NT-Pro-B Natriuret Pep pg/mL Total Protein (6.3-8.2) g/dL Albumin (3.5-5.0) g/dL 06/27/23 Range/Units 18:42 WBC (3.8-10.6) k/uL RBC (4.30-5.90) m/uL Hgb (13.0-17.5) gm/dL Hct (39.0-53.0) % MCV (80.0-100.0) fL MCH (25.0-35.0) pg MCHC (31.0-37.0) g/dL RDW (11.5-15.5) % Plt Count (150-450) k/uL MPV Neutrophils % % Lymphocytes % % Monocytes % % Eosinophils % % Basophils % % Neutrophils # (1.3-7.7) k/uL Lymphocytes # (1.0-4.8) k/uL Monocytes # (0-1.0) k/uL Eosinophils # (0-0.7) k/uL Basophils # (0-0.2) k/uL Anisocytosis PT (10.0-12.5) sec INR (<1.2) Sodium (137-145) mmol/L Potassium (3.5-5.1) mmol/L Chloride (98-107) mmol/L Carbon Dioxide (22-30) mmol/L Anion Gap mmol/L BUN (9-20) mg/dL Creatinine (0.66-1.25) mg/dL Est GFR (CKD-EPI)AfAm (>60 ml/min/1.73 sqM) Est GFR (CKD-EPI)NonAf (>60 ml/min/1.73 sqM) Glucose (74-99) mg/dL POC Glucose (mg/dL) (70-110) mg/dL POC Glu Vice President Of Nursing ID Lactic Ac Sepsis Rflx Y Plasma Lactic Acid Mike (0.7-2.0) mmol/L Calcium (8.4-10.2) mg/dL Phosphorus (2.5-4.5) mg/dL Magnesium (1.6-2.3) mg/dL Total Bilirubin (0.2-1.3) mg/dL AST (17-59) U/L ALT (4-49) U/L Alkaline Phosphatase (38-126) U/L Troponin I (0.000-0.034) ng/mL NT-Pro-B Natriuret Pep pg/mL Total Protein (6.3-8.2) g/dL Albumin (3.5-5.0) g/dL Disposition <Shirin eCleste - Last Filed: 06/27/23 17:08> Is patient prescribed a controlled substance at d/c from ED?: No Time of Disposition: 21:04 <Alan Gutierrez - Last Filed: 06/27/23 21:04> Clinical Impression: Chest pain, Exertional dyspnea Disposition: ADMITTED IP TO THIS HOSP Referrals: Bryce Astudillo MD [Primary Care Provider] - 1-2 days
[2023-06-27 17:38] LABS: Glucose,Whole Blood 165 mg/dL (70-110)
[2023-06-27 18:23] LABS: Prothrombin Time 11.3 sec (10.0-12.5)
[2023-06-27 18:28] LABS: ALT 25 U/L (4-49); African American GFR (CKD) 49 (>60 ml/min/1.73 sqM); Anion Gap 13 mmol/L; Blood Urea Nitrogen 26 mg/dL (9-20); Calcium 9.9 mg/dL (8.4-10.2); Carbon Dioxide 19 mmol/L (22-30); Chloride 105 mmol/L (98-107); Glucose 146 mg/dL (74-99); Non-African American GFR(CKD) 42 (>60 ml/min/1.73 sqM); Sodium 137 mmol/L (137-145)
[2023-06-27 18:31] LABS: AST 35 U/L (17-59); Albumin 4.5 g/dL (3.5-5.0); Alkaline Phosphatase 74 U/L (38-126); Magnesium 1.8 mg/dL (1.6-2.3); Phosphorus 3.8 mg/dL (2.5-4.5); Potassium 5.3 mmol/L (3.5-5.1); Total Bilirubin 2.1 mg/dL (0.2-1.3); Total Protein 7.7 g/dL (6.3-8.2)
[2023-06-27 18:32] LABS: Anisocytosis Slight; Basophils # (A) 0.1 k/uL (0-0.2); Basophils % (A) 0 %; Eosinophils # (A) 0.2 k/uL (0-0.7); Eosinophils % (A) 1 %; HCT 42.7 % (39.0-53.0); HGB 14.1 gm/dL (13.0-17.5); Lymphocytes # (A) 2.8 k/uL (1.0-4.8); Lymphocytes % (A) 17 %; MCH 30.8 pg (25.0-35.0); MCHC 33.2 g/dL (31.0-37.0); Mean Platelet Volume 8.3; Monocytes % (A) 6 %; Neutrophils % (A) 73 %; Platelet Count 312 k/uL (150-450); RBC 4.59 m/uL (4.30-5.90); RDW 16.4 % (11.5-15.5); WBC 16.3 k/uL (3.8-10.6)
[2023-06-27 18:37] LABS: NT-Pro-B-Type Natriuretic Pept 339 pg/mL
--- NOTE | 2023-06-27 19:13 | XR ---
EXAMINATION TYPE: XR chest 2V DATE OF EXAM: 06/27/2023 6:20 PM CLINICAL INDICATION:Male, 67 years old with history of SOB; [facility] COMPARISON: 04/02/2023 TECHNIQUE: XR chest 2V. Frontal and lateral views of the chest.. FINDINGS: There is a gradient of increased opacity going from right to left, likely due to technical factors. Lines/Tubes/Devices: EKG leads overlie the chest. No indwelling lines are seen. Heart/mediastinum: Heart appears mildly enlarged. Mediastinum appears stable. Atherosclerotic calcif ications of the aorta. Pulmonary vascularity: Not increased, Lungs/Pleura: Hazy opacification over the left chest, likely technical. No sizable pleural effusions, focal consolidation, or pneumothorax detected. Musculoskeletal: No acute osseous abnormality demonstrated in the limits of the exam. Mild degenerati ve changes. Other findings: None. IMPRESSION: Cardiomegaly without acute cardiopulmonary abnormality.
--- NOTE | 2023-06-27 19:55 | CT ---
EXAMINATION TYPE: CT abdomen pelvis wo con CT DLP: 2068 mGycm, Automated exposure control for dose reduction was used. DATE OF EXAM: 06/27/2023 6:50 PM COMPARISON: None. CLINICAL INDICATION:Male, 67 years old with history of r flank pain; Rt side flank pain. TECHNIQUE: Axial CT of the abdomen and pelvis. Sagittal and coronal reformats were created on a [employer] workstation. Contrast used: mL of , (none if empty) Oral contrast used: without Oral Contrast (none if empty) FINDINGS: LOWER CHEST: Mild scarring or subsegmental atelectasis in the lower lobes. Mild fat insinuation along the inferior end of the left oblique fissure. No evidence of pleural effusion. Normal heart size. Mo derate to heavy atherosclerotic calcification and/or stents of the coronary arteries. No pericardial effusion. ABDOMEN LIVER: Unremarkable GALLBLADDER AND BILE DUCTS: Gallbladder appears absent. No biliary duct dilatation is suggested. PANCREAS: Mild fatty infiltration without acute finding SPLEEN: Unremarkable. ADRENAL GLANDS: Mildly thickened with an ovoid nodule in the medial limb on the right measuring 3.6 x 2.6 cm with mean attenuation from 6-8, likely benign adenoma. Correlate for any symptoms of pheochro mocytoma.. KIDNEYS AND URETERS: No evidence of renal calculi or hydronephrosis. Small contour deforming nodules of both kidneys could be cysts but are not fully characterized; consider ultrasound correlation. PELVIS BLADDER: Mostly empty. Indentation along its base by enlarged prostate. Mildly thickened wall. REPRODUCTIVE: Prostate is enlarged measuring 5.7 x 5.6 cm. ABDOMEN & PELVIS STOMACH AND BOWEL: There may be a tiny hiatal hernia. Stomach and small bowel are nondistended, no ev idence of obstruction. The appendix appears within normal limits. Moderate stool throughout the co sylvain. Several diverticula are present in the descending and sigmoid colon, without definite evidence o f diverticulitis. PERITONEUM/RETROPERITONEUM: No evidence of pneumoperitoneum or free fluid. VASCULATURE: Moderate atherosclerotic calcifications are present throughout the abdominal aorta and i ts branches. No evidence of aortic aneurysm. LYMPH NODES: No enlarged nodes by CT size criteria. SOFT TISSUE/ABDOMINAL WALL: Mild broad-based laxity between the abdominal rectus muscles with superim posed small fat-containing umbilical hernia. Small fat-containing bilateral inguinal hernias. MUSCULOSKELETAL: Moderate diffuse degenerative changes of the visualized spine. Possible DISH changes in the lower thoracic spine. No acute bony abnormality is seen. IMPRESSION: 1. No evidence of urinary tract calculi or hydronephrosis. 2. Prostatomegaly, indenting the base of the bladder. 3. Mildly thickened appearance of the bladder wall, could be due to incomplete distention and chroni c changes from bladder outlet obstruction. Correlate clinically to exclude cystitis. 4. Right adrenal nodule, likely adenoma. 5. Moderate to heavy coronary arterial calcifications. Normal heart size. 6. Other chronic and likely incidental findings, as described above.
[2023-06-27] MEDS ORDERED: IPRATROPIUM 0.5 MG/2.5 ML NEBU INHALATION PRN (21:03)
[2023-06-27] MEDS ORDERED: NITROGLYCERIN SL TABS 0.4 MG TAB SUBLINGUAL PRN (21:04)
[2023-06-27] MEDS: ASPIRIN 81 MG PO STA (21:09)
[2023-06-27] MEDS: ATORVASTATIN 40 MG TAB PO SCH (21:09)
[2023-06-27 23:35] LABS: Appearance,Urine Cloudy (Clear); Bacteria,Urine Rare /hpf; Bilirubin,Urine Negative (Negative); Blood,Urine Negative (Negative); Cellular Casts,Urine 3 /lpf (0); Color,Urine Yellow; Glucose,Urine (UA) Negative (Negative); Granular Casts,Urine 1 /lpf (0); Hyaline Casts,Urine 122 /lpf (0-2); Ketones,Urine Trace (Negative); Leukocyte Esterase,Urine Large (Negative); Mucus,Urine Moderate /hpf; Nitrite,Urine Negative (Negative); Protein,Urine 1+ (Negative); RBC,Urine 3 /hpf (0-5); Squamous Epithelial Cell,Urine 4 /hpf (0-4); WBC,Urine 46 /hpf (0-5)
--- NOTE | 2023-06-28 04:00 | P.HPIM ---
History of Present Illness H&P Date: 06/27/23 Chief Complaint: Exertional dyspnea 67-year-old male with advanced systolic congestive heart failure with left ventricular ejection fraction 30%, coronary artery disease status post stents Patient coming into the hospital for evaluation of exertional dyspnea he reports that he was last discharged from the hospital about 2 months ago however since then he had progressive worsening of his shortness of breath especially over the past month with exertional dyspnea with mild exertion he denies any orthopnea denies any PND. He would feel comfortable if he is resting doing nothing but the minute he starts walking he would feel short of breath he feels fatigued and tired. He has not followed up with his heart doctor yet since discharge where his medications were adjusted. 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 Patient denies any chest pain denies any nausea vomiting denies any GI bleeding denies any abdominal pain denies any upper respiratory infection symptoms. He is not on home oxygen he currently denies any chest pain fevers or chills denies any coughing Patient denies tobacco smoking illicit drugs or heavy alcohol review of systems Pertinent positives as noted in HPI. All other systems were reviewed and are negative on exam Constitutional: No acute distress, conversant, pleasant Eyes: Anicteric sclerae, moist conjunctiva, Pupils equal round reactive to light ENMT: NC/AT Patient has known mass over his right mandible Neck: Supple, no masses, or JVD No carotid bruits No thyromegaly Lungs: Clear to auscultation Clear to percussion Normal respiratory effort, no accessory muscle use Cardiovascular: Heart regular in rate and rhythm, No murmurs, gallops, or rubs Trace bilateral peripheral edema Abdominal: Soft Nontender, no guarding, rebound or rigidity Abdomen moving with respiration Normoactive bowel sounds Extremities: No digital cyanosis No clubbing Pedal pulses intact and symmetrical Radial pulses intact and symmetrical No calf tenderness Psychiatric: Alert and oriented to person, place and time Appropriate affect fair judgement Neuro Muscles Strength 5/5 in all 4 extremities Sensation to light touch grossly present throughout Cranial nerves II-XII grossly intact Past Medical History Past Medical History: Coronary Artery Disease (CAD), Cancer, Heart Failure, Diabetes Mellitus, Hypertension, Myocardial Infarction ([place]), Osteoarthritis ([place]), Prostate Disorder, Sleep Apnea/CPAP/BIPAP, Vascular Disorder Additional Past Medical History / Comment(s): Hx [place] X4. Hx Covid 02/20, had mononucal antibodies (with reaction), still has residual vertigo, aches and pains and brain fog. Neuropathy bilateral feet. CPAP use. Hx right ear basal cell skin cancer(removed). Slight BPH, elevate PSA. PVD. Thoracic Aortic Aneurysm. Last Myocardial Infarction Date:: 08/11/19 History of Any Multi-Drug Resistant Organisms: None Reported Past Surgical History: Cholecystectomy, Heart Catheterization, Heart Catheterization With Stent, Joint Replacement, Orthopedic Surgery Additional Past Surgical History / Comment(s): PCI with a total of 7 stents, bilateral knee ACLs, total left knee arthroplasty, right knee arthroscopy, bilateral surgery on elbows, right ear cancer/reconstructive surgery, all teeth removed. Past Anesthesia/Blood Transfusion Reactions: No Reported Reaction Additional Past Anesthesia/Blood Transfusion Reaction / Comment(s): Couldn't urinate after gallbladder surgery, had to be straight cathed X1. Date of Last Stent Placement:: 2017 Past Psychological History: No Psychological Hx Reported Smoking Status: Former smoker Past Alcohol Use History: Rare Past Drug Use History: None Reported - Past Family History Father Family Medical History: Dementia Additional Family Medical History / Comment(s): Father is . Mother Family Medical History: Cancer Additional Family Medical History / Comment(s): MOTHER OF CANCER-FOUND IN LIVER-PRIMARY NEVER KNOWN. Medications and Allergies Home Medications Medication Instructions Recorded Confirmed Type Losartan Potassium 100 mg PO DAILY 04/04/21 06/27/23 History Budesonide/Glycopyr/Formoterol 1 puff INHALATION RT-DAILY PRN 04/02/23 06/27/23 History [Breztri Aerosphere Inhaler] Multivitamins, Thera [Multivitamin 1 tab PO DAILY 04/02/23 06/27/23 History (formulary)] Nitroglycerin Sl Tabs [Nitrostat] 0.4 mg SUBLINGUAL Q5M PRN 04/02/23 06/27/23 History Aspirin 81 mg PO DAILY #30 tab 04/06/23 06/27/23 Rx Furosemide [Lasix] 40 mg PO BID #60 tablet 04/06/23 06/27/23 Rx Potassium Chloride [Klor-Con M20] 20 meq PO BID #60 tab 04/06/23 06/27/23 Rx Spironolactone [Aldactone] 100 mg PO DAILY #120 tab 04/06/23 06/27/23 Rx hydrALAZINE HCL [Apresoline] 100 mg PO TID #90 tablet 04/06/23 06/27/23 Rx Atorvastatin [Lipitor] 40 mg PO HS 06/27/23 06/27/23 History Allergies Allergy/AdvReac Type Severity Reaction Status Date / Time Penicillins Allergy Severe Swelling Verified 06/27/23 19:08 amlodipine [From Lotrel] Allergy ITCHING/SWE Verified 06/27/23 19:08 LLING benazepril [From Lotrel] Allergy ITCHING/SWE Verified 06/27/23 19:08 LLING Physical Exam Vitals: Vital Signs Temp Pulse Resp BP Pulse Ox 06/27/23 23:00 95 92/61 96 06/27/23 17:54 100 20 87/68 95 06/27/23 16:36 98.7 F 46 L 18 99/67 96 Intake and Output 06/27/23 06/27/23 06/28/23 14:59 22:59 06:59 Other: Weight 136.078 kg Results CBC & Chem 7: 06/27/23 18:02 06/27/23 17:06 Labs: Abnormal Lab Results - Last 24 Hours (Table) 06/27/23 06/27/23 06/27/23 Range/Units 17:06 17:06 17:36 WBC (3.8-10.6) k/uL RDW (11.5-15.5) % Neutrophils # (1.3-7.7) k/uL Potassium 5.3 H (3.5-5.1) mmol/L Carbon Dioxide 19 L (22-30) mmol/L BUN 26 H (9-20) mg/dL Creatinine 1.66 H (0.66-1.25) mg/dL Glucose 146 H (74-99) mg/dL POC Glucose (mg/dL) 165 H (70-110) mg/dL Plasma Lactic Acid Mike 2.6 H* (0.7-2.0) mmol/L Total Bilirubin 2.1 H (0.2-1.3) mg/dL Urine Protein (Negative) Urine Ketones (Negative) Ur Leukocyte Esterase (Negative) Urine WBC (0-5) /hpf Urine WBC Clumps (None) /hpf Urine Bacteria (None) /hpf Hyaline Casts (0-2) /lpf Urine Mucus (None) /hpf 06/27/23 06/27/23 Range/Units 18:02 23:20 WBC 16.3 H (3.8-10.6) k/uL RDW 16.4 H (11.5-15.5) % Neutrophils # 12.0 H (1.3-7.7) k/uL Potassium (3.5-5.1) mmol/L Carbon Dioxide (22-30) mmol/L BUN (9-20) mg/dL Creatinine (0.66-1.25) mg/dL Glucose (74-99) mg/dL POC Glucose (mg/dL) (70-110) mg/dL Plasma Lactic Acid Mike (0.7-2.0) mmol/L Total Bilirubin (0.2-1.3) mg/dL Urine Protein 1+ H (Negative) Urine Ketones Trace H (Negative) Ur Leukocyte Esterase Large H (Negative) Urine WBC 46 H (0-5) /hpf Urine WBC Clumps Few H (None) /hpf Urine Bacteria Rare H (None) /hpf Hyaline Casts 122 H (0-2) /lpf Urine Mucus Moderate H (None) /hpf Assessment and Plan Assessment: 67-year-old male with advanced systolic congestive heart failure, unknown for fatigue tiredness and exertional dyspnea with mild exertion discussed the case with ED doctor and accepted the admission for systolic congestive heart failure with anticipated length of stay less than 2 midnights Chronic systolic congestive heart failure with left ventricular ejection fraction of 30% Exertional dyspnea with mild exertion Fluid restriction 2 L daily IV Lasix 40 mg daily Monitor urine output Daily weight Cardiology consult Supplemental oxygen as needed Monitor vital signs Cardiac monitoring Known right salivary gland mass Continue follow-up outpatient Hypertension currently hypotensive Blood pressure is borderline Hold parameters on home blood pressure medications hydralazine and losartan Coronary artery disease status post stents Continue with aspirin and statin Troponins negative Obstructive sleep apnea Encouraged to wear CPAP at night Diabetes mellitus insulin sliding scale Full code DVT prophylaxis heparin subcu 3 times daily Leukocytosis Urine analysis positive for leukocyte esterase Afebrile Chest x-ray no acute cardiopulmonary process Start patient on Rocephin 1 g IV piggyback daily Follow-up cultures BPH CT findings suggestive of chronic bladder outlet obstruction Urology consult No hydronephrosis Blood work otherwise unremarkable
[2023-06-28] MEDS ORDERED: DEXTROSE 50% SYRINGE 50 ML IVP PRN ×2 (04:07)
[2023-06-28] MEDS: SULFAMETHOX-TMP 800-160MG 1 EACH TAB PO SCH (04:51)
[2023-06-28 04:52] LABS: Glucose,Whole Blood 128 mg/dL (70-110)
[2023-06-28] MEDS: SYMBICORT 160-4.5 MCG INHALER INHALATION PRN (07:54)
[2023-06-28] MEDS: INSULIN ASPART (NovoLOG) 100 UNIT/ML VIAL SQ SCH (07:54)
[2023-06-28 08:47] LABS: Anisocytosis Slight; HCT 39.1 % (39.0-53.0); HGB 12.5 gm/dL (13.0-17.5); MCH 30.4 pg (25.0-35.0); MCHC 31.9 g/dL (31.0-37.0); MCV 95.4 fL (80.0-100.0); Mean Platelet Volume 8.3; Platelet Count 251 k/uL (150-450); RDW 16.1 % (11.5-15.5); WBC 11.8 k/uL (3.8-10.6)
[2023-06-28] MEDS ORDERED: ASPIRIN 325 MG TAB PO SCH (09:00)
[2023-06-28] MEDS ORDERED: ASPIRIN 81 MG PO SCH (09:00)
[2023-06-28] MEDS ORDERED: FUROSEMIDE 10 MG/ML 4 ML VIAL IV SCH (09:00)
[2023-06-28] MEDS ORDERED: hydrALAZINE HCL 50 MG TAB PO SCH (09:00)
[2023-06-28] MEDS ORDERED: SPIRONOLACTONE 25 MG TAB PO SCH (09:00)
[2023-06-28] MEDS ORDERED: LOSARTAN 50 MG TAB PO SCH (09:00)
[2023-06-28 09:16] LABS: ALT 21 U/L (4-49); AST 18 U/L (17-59); African American GFR (CKD) 50 (>60 ml/min/1.73 sqM); Albumin 3.8 g/dL (3.5-5.0); Alkaline Phosphatase 73 U/L (38-126); Anion Gap 12 mmol/L; Blood Urea Nitrogen 30 mg/dL (9-20); Calcium 9.6 mg/dL (8.4-10.2); Carbon Dioxide 19 mmol/L (22-30); Chloride 106 mmol/L (98-107); Glucose 123 mg/dL (74-99); Magnesium 1.9 mg/dL (1.6-2.3); Non-African American GFR(CKD) 43 (>60 ml/min/1.73 sqM); Potassium 4.4 mmol/L (3.5-5.1); Sodium 137 mmol/L (137-145); Total Bilirubin 1.5 mg/dL (0.2-1.3); Total Protein 6.5 g/dL (6.3-8.2)
[2023-06-28 09:25] LABS: Chol/HDL Ratio 3.42 Ratio; LDL Cholesterol,Calculated 75.5 mg/dL (0.0-131.0)
[2023-06-28] MEDS: hydrALAZINE HCL 25 MG TAB PO SCH (09:46)
[2023-06-28] MEDS: HEPARIN SODIUM,PORCINE 5,000 UNIT/ML 1 ML VIAL SQ SCH (09:46)
[2023-06-28] MEDS: ASPIRIN 81 MG PO SCH (09:47)
[2023-06-28] MEDS: MULTIVITAMINS, THERA 1 EACH TAB PO SCH (09:47)
--- NOTE | 2023-06-28 09:59 | CT ---
EXAMINATION TYPE: CT chest wo con DATE OF EXAM: 06/28/2023 COMPARISON: 10/03/2021 HISTORY: 67-year-old male closer eval CATHERINE lobe concerns possible nodule/mass. TECHNIQUE: Contiguous axial scanning of the chest without IV contrast. Coronal/sagittal reconstructio ns performed. CT DLP: 1077.6mGycm. Automatic exposure control utilized for a dose reduction. FINDINGS: The heart is normal size without pericardial effusion. Three-vessel coronary artery calcifications ar e present and are remarkable for coronary artery disease. Ascending aorta aneurysmal at 5.3 cm, unchanged. Mild atherosclerotic arch calcifications. Convention al arch vessel branching anatomy. Ectatic descending thoracic aorta measuring up to 3.4 cm. A few prominent mediastinal lymph nodes measuring up to 1.2 cm remain unchanged. Stability from 2021 suggests a benign etiology. Moderate bilateral gynecomastia redemonstrated. Minimal emphysematous change in the upper lungs. No consolidation or pleural effusion. Some stringy a telectasis in the lower lungs. No suspicious pulmonary nodule. Tiny hiatal hernia. Status post cholecystectomy. There is a low density 2.2 cm nodule of the right ad renal gland. Density characteristics compatible with a benign adrenal adenoma. [facility] lower thoracic spine. Normal variant sternal foramen. IMPRESSION: 1. COPD with minimal emphysema. Three-vessel coronary artery disease. 2. Aneurysmal/ectatic thoracic aorta (ascending measuring up to 5.3 cm, unchanged from 2021). 3. No suspicious pulmonary nodule is seen. Radiographic findings correspond to a prominent left first rib end.
--- NOTE | 2023-06-28 10:35 | P.CRDCN ---
History of Present Illness History of present illness: HISTORY OF PRESENT ILLNESS: This is a 67-year-old male with a past medical history significant for coronary artery disease with previous stenting, hypertension, hyperlipidemia, diabetes, peripheral vascular disease, congestive heart failure, and morbid obesity. Patient follows in the office with Dr. Aguillon. We have been asked to see the patient in consultation for chest pain with exertional dyspnea. Patient examined at the bedside in the emergency room. Patient presented to the hospital with a chief complaint of fatigue. Patient states he has been feeling weak over the past few weeks and is unable to perform his normal daily activities. The patient denied having any chest pain or pressure. He currently denies any shortness of breath. Patient was found to have acute kidney injury with a creatinine of 1.66. Previous creatinine was 0.96 in April 2023. It is noted that the patient was hospitalized in April 2023 for heart failure. Patient states he has not followed up in the office since being discharged from the hospital. It is noted that the patient has been hypotensive since coming to the hospital with a systolic blood pressure ranging between 8090. DIAGNOSTICS: - EKG reveals sinus mechanism with right bundle branch block with nonspecific ST-T wave changes. EKG similar to previous. - Chest xray cardiomegaly without acute cardiopulmonary abnormality - Laboratory data: WBC 11.8. Hemoglobin 12.5. Platelet count 251. Sodium 134. Potassium 4.4. BUN 30. Creatinine 1.62. Bilirubin 1.5. Troponin negative x 3. proBNP 339. - Current home cardiac medications include hydralazine 100 mg 3 times daily, spironolactone 100 mg daily, losartan 100 mg daily, Lasix 40 mg twice a day, Lipitor 40 mg at night, and aspirin 81 mg daily - Most recent echocardiogram obtained in April 2023 revealed ejection fraction 30 to 35%, mild to moderate concentric LVH, mild AI, trace TR - Patient underwent renal artery Doppler in April 2023 which is a technically difficult study with limited visualization but did not reveal any significant renal artery stenosis - Cardiac catheterization history: October 2021 revealing calcified coronary arteries. Patent stent in the LAD and left circumflex. Mild to moderate triple-vessel disease. Right dominant system. Medical management was recommended. REVIEW OF SYSTEMS: At the time of my exam: CONSTITUTIONAL: Denies fever or chills. HEENT: Denies blurred vision, vision changes, or eye pain. Denies hemoptysis CARDIOVASCULAR: Denies chest pain. Denies orthopnea. Denies PND. Denies palpitations RESPIRATORY: Denies shortness of breath. GASTROINTESTINAL: Denies abdominal pain. Denies nausea or vomiting. HEMATOLOGIC: Denies bleeding disorders. GENITOURINARY: Denies any blood in urine. SKIN: Denies pruitis. Denies rash. PHYSICAL EXAM: VITAL SIGNS: Reviewed. GENERAL: Well-developed in no acute distress. HEENT: Head is normocephalic. Pupils are equal, round. Sclerae anicteric. Mucous membranes of the mouth are moist. Neck supple. No JVD or thyromegaly LUNGS: Respirations even and unlabored. Lungs essentially clear to auscultation bilaterally. HEART: Regular rate and rhythm. S1 and S2 heard. ABDOMEN: Soft. Nondistended. Nontender. EXTREMITIES: Normal range of motion. No clubbing or cyanosis. Peripheral pulses intact. Trace bilateral lower extremity edema NEUROLOGIC: Awake and alert. Oriented x 3. ASSESSMENT: Generalized weakness and fatigue Acute kidney injury Hypotension Chronic heart failure with reduced EF, 30 to 35%, currently euvolemic, proBNP 339 Coronary artery disease with previous stenting Hypertension Hyperlipidemia Diabetes Peripheral vascular disease Morbid obesity: BMI 35.6 PLAN: Patient is currently euvolemic upon examination with no evidence of congestive heart failure. Will discontinue IV Lasix. Hold oral diuretics at this time secondary to acute kidney injury. Discontinue losartan and spironolactone secondary to ELOY Decrease hydralazine to 25 mg 3 times daily. Hold for systolic blood pressure less than 100 Continue to monitor blood pressure Continue to monitor kidney function Further recommendations pending patient course Nurse practitioner note has been reviewed by physician. Signing provider agrees with the documented findings, assessment, and plan of care documented by SCRAP SHEAR OPERATOR as a scribe. Past Medical History Past Medical History: Coronary Artery Disease (CAD), Cancer, Heart Failure, Diabetes Mellitus, Hypertension, Myocardial Infarction ([place]), Osteoarthritis (OA), Prostate Disorder, Sleep Apnea/CPAP/BIPAP, Vascular Disorder Additional Past Medical History / Comment(s): Hx [place] X4. Hx Covid 02/20, had mononucal antibodies (with reaction), still has residual vertigo, aches and pains and brain fog. Neuropathy bilateral feet. CPAP use. Hx right ear basal cell skin cancer(removed). Slight BPH, elevate PSA. PVD. Thoracic Aortic Aneurysm. Last Myocardial Infarction Date:: 08/11/19 History of Any Multi-Drug Resistant Organisms: None Reported Past Surgical History: Cholecystectomy, Heart Catheterization, Heart Catheterization With Stent, Joint Replacement, Orthopedic Surgery Additional Past Surgical History / Comment(s): PCI with a total of 7 stents, bilateral knee ACLs, total left knee arthroplasty, right knee arthroscopy, bilateral surgery on elbows, right ear cancer/reconstructive surgery, all teeth removed. Past Anesthesia/Blood Transfusion Reactions: No Reported Reaction Additional Past Anesthesia/Blood Transfusion Reaction / Comment(s): Couldn't urinate after gallbladder surgery, had to be straight cathed X1. Date of Last Stent Placement:: 2017 Past Psychological History: No Psychological Hx Reported Smoking Status: Former smoker Past Alcohol Use History: Rare Past Drug Use History: None Reported - Past Family History Father Family Medical History: Dementia Additional Family Medical History / Comment(s): Father is . Mother Family Medical History: Cancer Additional Family Medical History / Comment(s): MOTHER OF CANCER-FOUND IN LIVER-PRIMARY NEVER KNOWN. Medications and Allergies Home Medications Medication Instructions Recorded Confirmed Type Losartan Potassium 100 mg PO DAILY 04/04/21 06/27/23 History Budesonide/Glycopyr/Formoterol 1 puff INHALATION RT-DAILY PRN 04/02/23 06/27/23 History [Breztri Aerosphere Inhaler] Multivitamins, Thera [Multivitamin 1 tab PO DAILY 04/02/23 06/27/23 History (formulary)] Nitroglycerin Sl Tabs [Nitrostat] 0.4 mg SUBLINGUAL Q5M PRN 04/02/23 06/27/23 History Aspirin 81 mg PO DAILY #30 tab 04/06/23 06/27/23 Rx Furosemide [Lasix] 40 mg PO BID #60 tablet 04/06/23 06/27/23 Rx Potassium Chloride [Klor-Con M20] 20 meq PO BID #60 tab 04/06/23 06/27/23 Rx Spironolactone [Aldactone] 100 mg PO DAILY #120 tab 04/06/23 06/27/23 Rx hydrALAZINE HCL [Apresoline] 100 mg PO TID #90 tablet 04/06/23 06/27/23 Rx Atorvastatin [Lipitor] 40 mg PO HS 06/27/23 06/27/23 History Allergies Allergy/AdvReac Type Severity Reaction Status Date / Time Penicillins Allergy Severe Swelling Verified 06/27/23 19:08 amlodipine [From Lotrel] Allergy ITCHING/SWE Verified 06/27/23 19:08 LLING benazepril [From Lotrel] Allergy ITCHING/SWE Verified 06/27/23 19:08 LLING Physical Exam Vitals: Vital Signs Temp Pulse Resp BP Pulse Ox 06/28/23 06:29 59 L 16 94/52 96 06/28/23 04:53 70 18 86/72 96 06/28/23 01:43 78 18 88/53 96 06/27/23 23:00 95 92/61 96 06/27/23 17:54 100 20 87/68 95 06/27/23 16:36 98.7 F 46 L 18 99/67 96 Intake and Output 06/27/23 06/28/23 06/28/23 22:59 06:59 14:59 Other: Weight 136.078 kg Results 06/28/23 08:31 06/28/23 05:14 Cardiac Enzymes 06/27/23 06/27/23 06/27/23 Range/Units 17:06 17:06 21:09 AST 35 (17-59) U/L Troponin I 0.032 0.031 (0.000-0.034) ng/mL 06/28/23 Range/Units 03:03 AST (17-59) U/L Troponin I 0.023 (0.000-0.034) ng/mL Coagulation 06/27/23 Range/Units 17:06 PT 11.3 (10.0-12.5) sec CBC 06/27/23 Range/Units 18:02 WBC 16.3 H (3.8-10.6) k/uL RBC 4.59 (4.30-5.90) m/uL Hgb 14.1 (13.0-17.5) gm/dL Hct 42.7 (39.0-53.0) % Plt Count 312 (150-450) k/uL Comprehensive Metabolic Panel 06/27/23 Range/Units 17:06 Sodium 137 (137-145) mmol/L Potassium 5.3 H (3.5-5.1) mmol/L Chloride 105 (98-107) mmol/L Carbon Dioxide 19 L (22-30) mmol/L BUN 26 H (9-20) mg/dL Creatinine 1.66 H (0.66-1.25) mg/dL Glucose 146 H (74-99) mg/dL Calcium 9.9 (8.4-10.2) mg/dL AST 35 (17-59) U/L ALT 25 (4-49) U/L Alkaline Phosphatase 74 (38-126) U/L Total Protein 7.7 (6.3-8.2) g/dL Albumin 4.5 (3.5-5.0) g/dL Current Medications Generic Name Dose Route Start Last Admin Trade Name Freq PRN Reason Stop Dose Admin Aspirin 325 mg 06/28/23 09:00 Aspirin 325 Mg Tab PO DAILY [facility] Atorvastatin Calcium 40 mg 06/27/23 21:00 06/27/23 21:09 Atorvastatin 40 Mg Tab PO 40 mg HS ABBI Administration Budesonide/Formoterol Fumarate 2 puff 06/27/23 20:59 Symbicort 160-4.5 Mcg Inhaler INHALATION RT-BID PRN Shortness Of Breath Dextrose/Water 50 ml 06/28/23 04:07 Dextrose 50% Syringe 50 Ml IVP PER PROTOCOL PRN Hypoglycemia Protocol Dextrose/Water 25 ml 06/28/23 04:07 Dextrose 50% Syringe 50 Ml IVP PER PROTOCOL PRN Hypoglycemia Protocol Furosemide 40 mg 06/28/23 09:00 Furosemide 10 Mg/Ml 4 Ml Vial IV DAILY [facility] Heparin Sodium (Porcine) 5,000 unit 06/28/23 08:00 Heparin Sodium,Porcine 5,000 Unit/Ml 1 Ml Vial SQ Q8HR [facility] Hydralazine HCl 100 mg 06/28/23 09:00 Hydralazine Hcl 50 Mg Tab PO TID [facility] Insulin Aspart 0 unit 06/28/23 07:30 Insulin Aspart (Novolog) 100 Unit/Ml Vial SQ ACHS [facility] Protocol Ipratropium [place] 0.5 mg 06/27/23 21:03 Ipratropium 0.5 Mg/2.5 Ml Nebu INHALATION RT-QID PRN Shortness Of Breath Losartan Potassium 100 mg 06/28/23 09:00 Losartan 50 Mg Tab PO DAILY [facility] Multivitamins 1 each 06/28/23 09:00 Multivitamins, Thera 1 Each Tab PO DAILY [facility] Nitroglycerin 0.4 mg 06/27/23 21:04 Nitroglycerin Sl Tabs 0.4 Mg Tab SUBLINGUAL Q5M PRN Chest Pain Spironolactone 100 mg 06/28/23 09:00 Spironolactone 25 Mg Tab PO DAILY [facility] Trimethoprim/Sulfamethoxazole 1 each 06/28/23 04:05 06/28/23 04:51 Sulfamethox-Tmp 800-160mg 1 Each Tab PO 1 each BID [facility] Administration Protocol Intake and Output 06/27/23 06/28/23 06/28/23 22:59 06:59 14:59 Other: Weight 136.078 kg 06/27/23 18:02 06/27/23 17:06
[2023-06-28 13:25] LABS: Glucose,Whole Blood 128 mg/dL (70-110)
--- NOTE | 2023-06-28 17:12 | P.PN ---
Subjective Progress Note Date: 06/28/23 Hospital course: Patient is a very pleasant 67-year-old male with a past medical history of CAD status post stenting, advanced systolic congestive heart failure with a EF of 30%, hypertension, hyperlipidemia, peripheral vascular disease with bilateral lower extremity neuropathy, and thoracic aortic aneurysm. He presented to the hospital on 06/27/2023 with a chief complaint of shortness of breath and worsening exertional dyspnea. Patient underwent evaluation in the emergency department. Vital signs upon arrival show blood pressure 99/67, heart rate 46, respiratory rate 18, temp 98.7 F, and SpO2 of 96% on room air. Shortly after arrival patient's oxygen saturations decreased requiring placement on 4 L O2 via nasal cannula to maintain SpO2 of 95%. EKG was completed showing sinus rhythm with frequent PVCs and a right bundle branch block. Chest x-ray completed and appears to have overall haziness throughout left lung and radiology report states cardiomegaly but be negative for acute cardiopulmonary process. CT abdomen and pelvis was also completed as patient reported right-sided flank and chest wall pain. CT abdomen and pelvis reported prostamegaly indenting the base of the bladder but negative for urinary tract calculi or hydronephrosis, mildly thickened appearance of the bladder wall, right adrenal nodule possibly adenoma and moderate to heavy coronary arterial calcifications. Labs completed and reviewed. CBC showing WBC count of 16.3. Coagulation profile normal findings. BMP reported mild hyperkalemia with potassium of 5.3 but was a hemolyzed specimen, bicarb 19, and an acute kidney injury with BUN of 26, creatinine of 1.66, GFR 42 with baseline creatinine of 0.9. Initial lactate elevated at 2.6 with repeat lactate of 1.3. Liver profile showing elevated total bili of 2.1 otherwise normal findings. Troponin was 0.032 and proBNP was only 339. Urinalysis positive for protein, ketones, leukocytes, 46 WBCs, and 122 hyaline casts. Patient was admitted under services with consultation to cardiology and urology. Physical exam: Vital signs reviewed and stable. General: Nontoxic, no distress and appears stated age. Derm: Skin warm and dry, normal coloration for ethnicity. Head: Atraumatic, normocephalic and symmetric. Large right-sided parotid/salivary gland mass. Eyes: EOMs intact, no lid lag, and anicteric sclera Mouth: no lip lesions, mucus membranes moist Cardiovascular: regular rate and rhythm with normal S1S2, systolic murmur, positive posterior tibial pulses bilaterally, and cap refill < 2 seconds. Lungs: Respirations even, regular, and unlabored on room air. Lungs CTA bilaterally, no rhonchi, no rales, no wheezing, and no accessory muscle usage. Abdominal: soft, nontender to palpation, no guarding, no appreciable organomegaly Ext: ROM intact. No gross muscle atrophy, no edema, no contractures Neuro: Speech clear, face symmetrical and CN II-XII grossly intact with no noted focal neuro deficits Psych: Alert and oriented to person, place, time, and situation. Appropriate and pleasant affect. Assessment and Plan of Care: 67-year-old male with advanced systolic congestive heart failure, unknown for fatigue tiredness and exertional dyspnea admitted for systolic congestive heart failure exacerbation. Chronic systolic congestive heart failure with left ventricular ejection fraction of 30% Acute kidney injury Exertional dyspnea with mild exertion, generalized weakness, and fatigue. Multifactorial secondary to above. History of CAD with previous stenting Peripheral vascular disease -Cardiology evaluated stating patient euvolemic with no evidence of acute CHF exacerbation. -Patient to remain on continuous telemetry monitoring -Troponins trended overnight all negative resulting at 0.032, 0.031, and 0.023. -ProBNP was only 339 -Continue Daily weights and Close monitoring of I's and O's -Cardiac diet with fluid restriction 2 L daily -Lasix, Aldactone, and losartan held secondary to ELOY -Patient to continue daily medication regimen with aspirin 81 mg daily, atorvastatin 40 mg nightly, and hydralazine 25 mg 3 times daily. -Continued close monitoring of electrolytes and renal function. -Continue with supplemental oxygen as needed to maintain SpO2 equal to or greater than 90%. Thoracic aortic aneurysm, 5.[address] chest without contrast completed showing COPD with minimal emphysema and three-vessel coronary artery disease with aneurysmal ectatic thoracic aorta measuring up to 5.3 cm. Patient denies following with cardiothoracic surgeon, order placed for cardiothoracic surgery consult for evaluation of 5.3 cm thoracic aortic aneurysm. BPH with concerns of chronic bladder outlet obstruction Abnormal urinalysis -CT abdomen and pelvis reported prostamegaly indenting the base of the bladder but negative for urinary tract calculi or hydronephrosis, mildly thickened appearance of the bladder wall, right adrenal nodule possibly adenoma and moderate to heavy coronary arterial calcifications. -Urinalysis positive for protein, ketones, leukocytes, 46 WBCs, and 122 hyaline casts. -Patient currently denies urinary complaints. Will hold off on antibiotics at this time, no need for treatment of asymptomatic bacteriuria. -Urology consulted secondary to concerns of prostamegaly indenting the base of bladder and concerns of chronic bladder outlet obstruction. Known right salivary gland mass. Continue to follow-up outpatient with ENT. Hypertension. Blood pressures currently running soft. Lasix, losartan, and Aldactone held secondary to ELOY. Patient may continue with hydralazine 25 mg 3 times daily with continued close monitoring of vital signs. Obstructive sleep apnea. Continue use of CPAP nightly and while napping. Diabetes mellitus. Obtain hemoglobin A1c. Patient placed on glycemic protocol with NovoLog sliding scale. Data and imaging reviewed: Reviewed chest x-ray and upon personal review showing haziness throughout left lung and concerns of possible lesion left upper lobe order placed for chest CT. CT chest without contrast completed showing COPD with minimal emphysema and three-vessel coronary artery disease with aneurysmal ectatic thoracic aorta measuring up to 5.3 cm but negative for suspicious pulmonary nodule with radiology report stating radiographic findings on chest x-ray correspond to prominent left first rib end. Vital signs reviewed and stable with blood pressure 94/52, heart rate 59, respiratory rate 16, temp 98.0 F, and SpO2 of 96% on 3 L. Morning labs repeated at this time. CBC showing leukocytosis improving from previous 16.3 down to 11.8 and stable normocytic anemia with hemoglobin of 12.5. BMP showing hypocarbia with bicarb of 19 and persistent ELOY with BUN of 30, creatinine 1.62, and GFR 43. Magnesium 1.9. Total bili decreasing to 1.5. Lipid profile showing elevated triglycerides of 153.00 otherwise normal findings.. CODE STATUS: Full code DVT prophylaxis: Heparin Anticipated discharge date: Clinical course to determine Anticipated discharge place: Clinical course to determine Patient was seen independently by Nurse Pracitioner. This document was prepared using [employer] dictation software. Please allow for errors in pre k teacher, while rare they do occur. Elbert Ayers NP rendered care for this patient independently, reviewed the findin gs and plan as documented in the note above. I did not physically speak with or examine the patient on this date. Objective - Vital Signs Vital signs: Vital Signs Temp 98.7 F 06/27/23 16:36 Pulse 59 L 06/28/23 06:29 Resp 16 06/28/23 06:29 BP 94/52 06/28/23 06:29 Pulse Ox 96 06/28/23 06:29 FiO2 Intake & Output 06/27/23 06/28/23 06/28/23 18:59 06:59 18:59 Weight 136.078 kg - Labs CBC & Chem 7: 06/28/23 08:31 06/28/23 05:14 Labs: Abnormal Lab Results - Last 24 Hours (Table) 06/27/23 06/27/23 06/27/23 Range/Units 17:06 17:06 17:36 WBC (3.8-10.6) k/uL RDW (11.5-15.5) % Neutrophils # (1.3-7.7) k/uL Potassium 5.3 H (3.5-5.1) mmol/L Carbon Dioxide 19 L (22-30) mmol/L BUN 26 H (9-20) mg/dL Creatinine 1.66 H (0.66-1.25) mg/dL Glucose 146 H (74-99) mg/dL POC Glucose (mg/dL) 165 H (70-110) mg/dL Plasma Lactic Acid Mike 2.6 H* (0.7-2.0) mmol/L Total Bilirubin 2.1 H (0.2-1.3) mg/dL Urine Protein (Negative) Urine Ketones (Negative) Ur Leukocyte Esterase (Negative) Urine WBC (0-5) /hpf Urine WBC Clumps (None) /hpf Urine Bacteria (None) /hpf Hyaline Casts (0-2) /lpf Urine Mucus (None) /hpf 06/27/23 06/27/23 06/28/23 Range/Units 18:02 23:20 04:49 WBC 16.3 H (3.8-10.6) k/uL RDW 16.4 H (11.5-15.5) % Neutrophils # 12.0 H (1.3-7.7) k/uL Potassium (3.5-5.1) mmol/L Carbon Dioxide (22-30) mmol/L BUN (9-20) mg/dL Creatinine (0.66-1.25) mg/dL Glucose (74-99) mg/dL POC Glucose (mg/dL) 128 H (70-110) mg/dL Plasma Lactic Acid Mike (0.7-2.0) mmol/L Total Bilirubin (0.2-1.3) mg/dL Urine Protein 1+ H (Negative) Urine Ketones Trace H (Negative) Ur Leukocyte Esterase Large H (Negative) Urine WBC 46 H (0-5) /hpf Urine WBC Clumps Few H (None) /hpf Urine Bacteria Rare H (None) /hpf Hyaline Casts 122 H (0-2) /lpf Urine Mucus Moderate H (None) /hpf
--- NOTE | 2023-06-28 17:51 | P.GSCN ---
History of Present Illness Consult date: 06/28/23 History of present illness: 67-year-old male in the hospital for chest pain and shortness of breath. He has cardiac issues. He had a CT scan of the abdomen identifying an enlarged prostate and a thickened bladder wall. We were asked to see for BPH and bladder outlet obstruction. He is not on any medication for this.He has not had any problems voiding prior to admission. He follows with Dr Astudillo. He states he has had an elevated psa in the past. I reviewed his old records and his psa in 2021 was 12.8 He had a prostate us in 2017 identifying a 98 ml prostate which would explain his elevatedd psa. Although his prostate is large he has no urinary symptoms. Review of Systems All systems: negative - Constitutional Denies fever, Denies weight loss - EENT Eyes: denies blurred vision Ears, nose, mouth and throat: Denies dysphagia - Cardiovascular Denies chest pain, Denies shortness of breath - Respiratory Denies cough, Denies 7 - Gastrointestinal Reports as per HPI - Genitourinary Denies dysuria, Denies hematuria - Integumentary Denies rash, Denies unusual bruising - Neurological Denies headaches, Denies syncope - Hematologic/Lymphatic Denies easy bleeding, Denies easy bruising Past Medical History Past Medical History: Coronary Artery Disease (CAD), Cancer, Heart Failure, [place] betes Mellitus, Hypertension, Myocardial Infarction ([place]), Osteoarthritis (OA), Prostate Disorder, Sleep Apnea/CPAP/BIPAP, Vascular Disorder Additional Past Medical History / Comment(s): Hx [place] X4. Hx Covid 02/20, had mononucal antibodies (with reaction), still has residual vertigo, aches and pains and brain fog. Neuropathy bilateral feet. CPAP use. Hx right ear basal cell skin cancer(removed). Slight BPH, elevate PSA. PVD. Thoracic Aortic Aneurysm. Last Myocardial Infarction Date:: 08/11/19 History of Any Multi-Drug Resistant Organisms: None Reported Past Surgical History: Cholecystectomy, Heart Catheterization, Heart Catheterization With Stent, Joint Replacement, Orthopedic Surgery Additional Past Surgical History / Comment(s): PCI with a total of 7 stents, bilateral knee ACLs, total left knee arthroplasty, right knee arthroscopy, bilateral surgery on elbows, right ear cancer/reconstructive surgery, all teeth removed. Past Anesthesia/Blood Transfusion Reactions: No Reported Reaction Additional Past Anesthesia/Blood Transfusion Reaction / Comm: Couldn't urinate after gallbladder surgery, had to be straight cathed X1. Date of Last Stent Placement:: 2017 Past Psychological History: No Psychological Hx Reported Smoking Status: Former smoker Past Alcohol Use History: Rare Past Drug Use History: None Reported - Past Family History Father Family Medical History: Dementia Additional Family Medical History / Comment(s): Father is . Mother Family Medical History: Cancer Additional Family Medical History / Comment(s): MOTHER OF CANCER-FOUND IN LIVER-PRIMARY NEVER KNOWN. Medications and Allergies Home Medications Medication Instructions Recorded Confirmed Type Losartan Potassium 100 mg PO DAILY 04/04/21 06/27/23 History Budesonide/Glycopyr/Formoterol 1 puff INHALATION RT-DAILY PRN 04/02/23 06/27/23 History [Breztri Aerosphere Inhaler] Multivitamins, Thera [Multivitamin 1 tab PO DAILY 04/02/23 06/27/23 History (formulary)] Nitroglycerin Sl Tabs [Nitrostat] 0.4 mg SUBLINGUAL Q5M PRN 04/02/23 06/27/23 History Aspirin 81 mg PO DAILY #30 tab 04/06/23 06/27/23 Rx Furosemide [Lasix] 40 mg PO BID #60 tablet 04/06/23 06/27/23 Rx Potassium Chloride [Klor-Con M20] 20 meq PO BID #60 tab 04/06/23 06/27/23 Rx Spironolactone [Aldactone] 100 mg PO DAILY #120 tab 04/06/23 06/27/23 Rx hydrALAZINE HCL [Apresoline] 100 mg PO TID #90 tablet 04/06/23 06/27/23 Rx Atorvastatin [Lipitor] 40 mg PO HS 06/27/23 06/27/23 History Allergies Allergy/AdvReac Type Severity Reaction Status Date / Time Penicillins Allergy Severe Swelling Verified 06/27/23 19:08 amlodipine [From Lotrel] Allergy ITCHING/SWE Verified 06/27/23 19:08 LLING benazepril [From Lotrel] Allergy ITCHING/SWE Verified 06/27/23 19:08 LLING Surgical - Exam Vital Signs Temp Pulse Resp BP Pulse Ox 98.7 F 46 L 18 99/67 96 06/27/23 16:36 06/27/23 16:36 06/27/23 16:36 06/27/23 16:36 06/27/23 16:36 - General well developed, well nourished, no distress - Eyes normal ocular movement, no icteric - ENT no hearing loss, no congestion - Neck no masses, trachea midline - Respiratory normal respiratory effort, clear to auscultation - Abdomen Abdomen: soft, non tender, no guarding, no rigid, no rebound - Genitourinary prostate 50 gm benign - Integumentary no rash, no abnormal pigmentation - Neurologic no disoriented, no combative - Psychiatric oriented to time, oriented to person, oriented to place, speech is normal, memory intact Results - Labs 06/28/23 08:31 06/28/23 05:14 Abnormal Lab Results - Last 24 Hours (Table) 06/27/23 06/27/23 06/27/23 Range/Units 17:06 17:06 17:36 WBC (3.8-10.6) k/uL RBC (4.30-5.90) m/uL Hgb (13.0-17.5) gm/dL RDW (11.5-15.5) % Neutrophils # (1.3-7.7) k/uL Potassium 5.3 H (3.5-5.1) mmol/L Carbon Dioxide 19 L (22-30) mmol/L BUN 26 H (9-20) mg/dL Creatinine 1.66 H (0.66-1.25) mg/dL Glucose 146 H (74-99) mg/dL POC Glucose (mg/dL) 165 H (70-110) mg/dL Plasma Lactic Acid Mike 2.6 H* (0.7-2.0) mmol/L Total Bilirubin 2.1 H (0.2-1.3) mg/dL Triglycerides (0.00-149.00) mg/dL Urine Protein (Negative) Urine Ketones (Negative) Ur Leukocyte Esterase (Negative) Urine WBC (0-5) /hpf Urine WBC Clumps (None) /hpf Urine Bacteria (None) /hpf Hyaline Casts (0-2) /lpf Urine Mucus (None) /hpf 06/27/23 06/27/23 06/28/23 Range/Units 18:02 23:20 03:03 WBC 16.3 H (3.8-10.6) k/uL RBC (4.30-5.90) m/uL Hgb (13.0-17.5) gm/dL RDW 16.4 H (11.5-15.5) % Neutrophils # 12.0 H (1.3-7.7) k/uL Potassium (3.5-5.1) mmol/L Carbon Dioxide (22-30) mmol/L BUN (9-20) mg/dL Creatinine (0.66-1.25) mg/dL Glucose (74-99) mg/dL POC Glucose (mg/dL) (70-110) mg/dL Plasma Lactic Acid Mike (0.7-2.0) mmol/L Total Bilirubin (0.2-1.3) mg/dL Triglycerides 153.00 H (0.00-149.00) mg/dL Urine Protein 1+ H (Negative) Urine Ketones Trace H (Negative) Ur Leukocyte Esterase Large H (Negative) Urine WBC 46 H (0-5) /hpf Urine WBC Clumps Few H (None) /hpf Urine Bacteria Rare H (None) /hpf Hyaline Casts 122 H (0-2) /lpf Urine Mucus Moderate H (None) /hpf 06/28/23 06/28/23 06/28/23 Range/Units 04:49 05:14 08:31 WBC 11.8 H (3.8-10.6) k/uL RBC 4.10 L (4.30-5.90) m/uL Hgb 12.5 L (13.0-17.5) gm/dL RDW 16.1 H (11.5-15.5) % Neutrophils # (1.3-7.7) k/uL Potassium (3.5-5.1) mmol/L Carbon Dioxide 19 L (22-30) mmol/L BUN 30 H (9-20) mg/dL Creatinine 1.62 H (0.66-1.25) mg/dL Glucose 123 H (74-99) mg/dL POC Glucose (mg/dL) 128 H (70-110) mg/dL Plasma Lactic Acid Mike (0.7-2.0) mmol/L Total Bilirubin 1.5 H (0.2-1.3) mg/dL Triglycerides (0.00-149.00) mg/dL Urine Protein (Negative) Urine Ketones (Negative) Ur Leukocyte Esterase (Negative) Urine WBC (0-5) /hpf Urine WBC Clumps (None) /hpf Urine Bacteria (None) /hpf Hyaline Casts (0-2) /lpf Urine Mucus (None) /hpf Diabetes panel 06/27/23 06/28/23 06/28/23 Range/Units 17:06 03:03 05:14 Sodium 137 137 (137-145) mmol/L Potassium 5.3 H 4.4 (3.5-5.1) mmol/L Chloride 105 106 (98-107) mmol/L Carbon Dioxide 19 L 19 L (22-30) mmol/L BUN 26 H 30 H (9-20) mg/dL Creatinine 1.66 H 1.62 H (0.66-1.25) mg/dL Glucose 146 H 123 H (74-99) mg/dL Calcium 9.9 9.6 (8.4-10.2) mg/dL AST 35 18 (17-59) U/L ALT 25 21 (4-49) U/L Alkaline Phosphatase 74 73 (38-126) U/L Total Protein 7.7 6.5 (6.3-8.2) g/dL Albumin 4.5 3.8 (3.5-5.0) g/dL Triglycerides 153.00 H (0.00-149.00) mg/dL HDL Cholesterol 43.90 (40.00-60.00) mg/dL Calcium panel 06/27/23 06/28/23 Range/Units 17:06 05:14 Calcium 9.9 9.6 (8.4-10.2) mg/dL Phosphorus 3.8 (2.5-4.5) mg/dL Albumin 4.5 3.8 (3.5-5.0) g/dL Pituitary panel 06/27/23 06/28/23 Range/Units 17:06 05:14 Sodium 137 137 (137-145) mmol/L Potassium 5.3 H 4.4 (3.5-5.1) mmol/L Chloride 105 106 (98-107) mmol/L Carbon Dioxide 19 L 19 L (22-30) mmol/L BUN 26 H 30 H (9-20) mg/dL Creatinine 1.66 H 1.62 H (0.66-1.25) mg/dL Glucose 146 H 123 H (74-99) mg/dL Calcium 9.9 9.6 (8.4-10.2) mg/dL Adrenal panel 06/27/23 06/28/23 Range/Units 17:06 05:14 Sodium 137 137 (137-145) mmol/L Potassium 5.3 H 4.4 (3.5-5.1) mmol/L Chloride 105 106 (98-107) mmol/L Carbon Dioxide 19 L 19 L (22-30) mmol/L BUN 26 H 30 H (9-20) mg/dL Creatinine 1.66 H 1.62 H (0.66-1.25) mg/dL Glucose 146 H 123 H (74-99) mg/dL Calcium 9.9 9.6 (8.4-10.2) mg/dL Total Bilirubin 2.1 H 1.5 H (0.2-1.3) mg/dL AST 35 18 (17-59) U/L ALT 25 21 (4-49) U/L Alkaline Phosphatase 74 73 (38-126) U/L Total Protein 7.7 6.5 (6.3-8.2) g/dL Albumin 4.5 3.8 (3.5-5.0) g/dL - Imaging CT scan - abdomen: report reviewed, image reviewed CT scan - pelvis: report reviewed, image reviewed US - pelvic: report reviewed Assessment and Plan Assessment: Impression: Coronary artery disease. BPH with obstruction with out urinary symptoms. Recommendations: At this time the patient doesnt need any urological int ervention as he is asx, empties his bladder . If we can be of further assistance please let us know.
[2023-06-28 17:54] LABS: Glucose,Whole Blood 135 mg/dL (70-110)
[2023-06-28 21:12] LABS: Glucose,Whole Blood 114 mg/dL (70-110)
[2023-06-29 06:00] LABS: HCT 39.9 % (39.0-53.0); HGB 13.2 gm/dL (13.0-17.5); MCH 30.4 pg (25.0-35.0); MCV 92.2 fL (80.0-100.0); Platelet Count 249 k/uL (150-450); RBC 4.33 m/uL (4.30-5.90); RDW 15.9 % (11.5-15.5); WBC 10.2 k/uL (3.8-10.6)
[2023-06-29 06:12] LABS: ALT 21 U/L (4-49); AST 22 U/L (17-59); African American GFR (CKD) 49 (>60 ml/min/1.73 sqM); Albumin 3.8 g/dL (3.5-5.0); Alkaline Phosphatase 77 U/L (38-126); Anion Gap 11 mmol/L; Blood Urea Nitrogen 32 mg/dL (9-20); Calcium 9.4 mg/dL (8.4-10.2); Carbon Dioxide 18 mmol/L (22-30); Chloride 106 mmol/L (98-107); Glucose 127 mg/dL (74-99); Non-African American GFR(CKD) 42 (>60 ml/min/1.73 sqM); Potassium 4.1 mmol/L (3.5-5.1); Sodium 135 mmol/L (137-145); Total Bilirubin 1.2 mg/dL (0.2-1.3); Total Protein 6.5 g/dL (6.3-8.2)
[2023-06-29 07:37] LABS: Glucose,Whole Blood 143 mg/dL (70-110)
--- NOTE | 2023-06-29 10:46 | P.GSCN ---
History of Present Illness Consult date: 06/29/23 Reason for Consult: Ascending aortic aneurysm measuring 5.[address] scan of the chest Requesting physician: Elbert Ayers History of present illness: This is a 67-year-old gentleman who follows on an outpatient basis with Dr. Bryce Astudillo for his primary care, Dr. Aguillon for his cardiology care and Dr. Ross for his pulmonary management. He has a past medical history significant for a known 5.4 cm aneurysmal ascending aorta, pulmonary hypertension, coronary artery disease with previous myocardial infarction and previous PCI, long-term COVID syndrome with episodes of dyspnea, hypertension, hyperlipidemia, chronic systolic heart failure with an ejection fraction of 30 to 35%, diabetes mellitus type 2, obstructive sleep apnea with home CPAP use, obesity with a BMI of 35.6 kg/m, BPH, peripheral vascular disease, remote history of nicotine dependence and COVID infection in January 2021. Recently, the patient has had complaints of vertigo which he reports is chronic, fatigue with activity, heaviness to his legs and right flank area pain. He denies any recent fever, chills, nausea, vomiting, hematuria, hematemesis, hemoptysis, headache, chest pain/pressure, palpitations, presyncope or syncope. Subse quently, due to the above-mentioned symptoms he presented to the emergency department on June 27, 2023 for further evaluation and treatment recommendations. A twelve-lead EKG was completed which demonstrated sinus mechanism with a right bundle branch block with nonspecific STT wave changes. Initial laboratory results showed a WBC count of 16.3, hemoglobin 14.1, hematocrit 42.7, platelets 312, sodium 137, potassium 5.3, CO2 19, BUN 26, creatinine 1.66, glucose 146, plasmic lactic acid 2.6, total bilirubin 2.1, serial troponins were negative, and a proBNP level of 339. Urinalysis showed large leukocyte Estrace, 46 WBC, and rare bacteria. A chest x-ray was completed which showed cardiomegaly without any acute cardiopulmonary abnormality. Due to the patient's complaints of flank pain he underwent a CT scan of his abdomen/pelvis which demonstrated no evidence of urinary tract calculi or hydronephrosis, prostate megaly, mild thickened appearance of the bladder wall, right adrenal gland nodule, and moderate to heavy coronary arterial calcifications. Due to the patient's history of aneurysmal ascending aorta a CT scan without contrast of his chest was completed which demonstrated COPD with minimal emphysema, three-vessel coronary artery disease, aneurysmal/ectatic thoracic aorta measuring up to 5.3 cm of his ascending aorta unchanged from 2021, and no suspicious pulmonary nodules were seen. Subsequently, due to the findings of his 5.3 cm ascending aorta a consult was placed to cardiothoracic surgery for further evaluation and treatment recommendations. Review of Systems A 14 point review of systems was completed and was negative except as mentioned in the HPI. Past Medical History Past Medical History: Coronary Artery Disease (CAD), Cancer, Heart Failure, Diabetes Mellitus, Hypertension, Myocardial Infarction (IA), Osteoarthritis (OA), Prostate Disorder, Sleep Apnea/CPAP/BIPAP, Vascular Disorder Additional Past Medical History / Comment(s): Hx IA X4. Hx Covid 02/20, had m ononucal antibodies (with reaction), still has residual vertigo, aches and pains and brain fog. Neuropathy bilateral feet. CPAP use. Hx right ear basal cell skin cancer(removed). Slight BPH, elevate PSA. PVD. Thoracic Aortic Aneurysm. Last Myocardial Infarction Date:: 08/11/19 History of Any Multi-Drug Resistant Organisms: None Reported Past Surgical History: Cholecystectomy, Heart Catheterization, Heart Catheterization With Stent, Joint Replacement, Orthopedic Surgery Additional Past Surgical History / Comment(s): PCI with a total of 7 stents, bilateral knee ACLs, total left knee arthroplasty, right knee arthroscopy, bilateral surgery on elbows, right ear cancer/reconstructive surgery, all teeth removed. Past Anesthesia/Blood Transfusion Reactions: No Reported Reaction Additional Past Anesthesia/Blood Transfusion Reaction / Comm: Couldn't urinate after gallbladder surgery, had to be straight cathed X1. Date of Last Stent Placement:: 2017 Past Psychological History: No Psychological Hx Reported Smoking Status: Former smoker Past Alcohol Use History: Rare Past Drug Use History: None Reported - Past Family History Father Family Medical History: Dementia Additional Family Medical History / Comment(s): Father is . Mother Family Medical History: Cancer Additional Family Medical History / Comment(s): MOTHER OF CANCER-FOUND IN LIVER-PRIMARY NEVER KNOWN. Medications and Allergies Home Medications Medication Instructions Recorded Confirmed Type Losartan Potassium 100 mg PO DAILY 04/04/21 06/27/23 History Budesonide/Glycopyr/Formoterol 1 puff INHALATION RT-DAILY PRN 04/02/23 06/27/23 History [Breztri Aerosphere Inhaler] Multivitamins, Thera [Multivitamin 1 tab PO DAILY 04/02/23 06/27/23 History (formulary)] Nitroglycerin Sl Tabs [Nitrostat] 0.4 mg SUBLINGUAL Q5M PRN 04/02/23 06/27/23 History Aspirin 81 mg PO DAILY #30 tab 04/06/23 06/27/23 Rx Furosemide [Lasix] 40 mg PO BID #60 tablet 04/06/23 06/27/23 Rx Potassium Chloride [Klor-Con M20] 20 meq PO BID #60 tab 04/06/23 06/27/23 Rx Spironolactone [Aldactone] 100 mg PO DAILY #120 tab 04/06/23 06/27/23 Rx hydrALAZINE HCL [Apresoline] 100 mg PO TID #90 tablet 04/06/23 06/27/23 Rx Atorvastatin [Lipitor] 40 mg PO HS 06/27/23 06/27/23 History Allergies Allergy/AdvReac Type Severity Reaction Status Date / Time Penicillins Allergy Severe Swelling Verified 06/27/23 19:08 amlodipine [From Lotrel] Allergy ITCHING/SWE Verified 06/27/23 19:08 LLING benazepril [From Lotrel] Allergy ITCHING/SWE Verified 06/27/23 19:08 LLING Surgical - Exam Vital Signs Temp Pulse Resp BP Pulse Ox 98.7 F 46 L 18 99/67 96 06/27/23 16:36 06/27/23 16:36 06/27/23 16:36 06/27/23 16:36 06/27/23 16:36 - General well developed, well nourished, no distress, no pain, chronically ill, obese - Eyes PERRL, normal ocular movement, no pale, no icteric - ENT normal pinna, normal nares, normal mucosa, no hearing loss, no congestion - Neck Soft mass to his right neck, chronic no masses, no bruits, trachea midline, no venous distension - Respiratory Lungs sounds essentially clear throughout. No wheezes, rhonchi or crackles. Respirations are symmetrical and nonlabored. - Cardiovascular Regular rhythm and rate. S1 and S2 present, negative for S3, gallop or murmur. - Abdomen Soft, nontender and nondistended. Active bowel sounds present all 4 abdominal quadrants. No guarding or rigidity. No organomegaly appreciated. - Genitourinary Deferred - Rectum Deferred - Integumentary Skin is warm and dry. No clubbing or cyanosis is present. no rash, no growths, no abnormal pigmentation - Neurologic No focal deficits. normal coordination, normal sensation - Musculoskeletal Moves all 4 extremities with equal strength bilateral. - Psychiatric oriented to time, oriented to person, oriented to place, speech is normal, memory intact Results - Labs 06/29/23 05:26 06/29/23 05:26 Abnormal Lab Results - Last 24 Hours (Table) 06/28/23 06/28/23 06/28/23 Range/Units 13:23 17:52 21:11 RDW (11.5-15.5) % Sodium (137-145) mmol/L Carbon Dioxide (22-30) mmol/L BUN (9-20) mg/dL Creatinine (0.66-1.25) mg/dL Glucose (74-99) mg/dL POC Glucose (mg/dL) 128 H 135 H 114 H (70-110) mg/dL Hemoglobin A1c (<=6.0) % 06/29/23 06/29/23 06/29/23 Range/Units 05:26 05:26 05:26 RDW 15.9 H (11.5-15.5) % Sodium 135 L (137-145) mmol/L Carbon Dioxide 18 L (22-30) mmol/L BUN 32 H (9-20) mg/dL Creatinine 1.66 H (0.66-1.25) mg/dL Glucose 127 H (74-99) mg/dL POC Glucose (mg/dL) (70-110) mg/dL Hemoglobin A1c 7.0 H (<=6.0) % 06/29/23 Range/Units 07:35 RDW (11.5-15.5) % Sodium (137-145) mmol/L Carbon Dioxide (22-30) mmol/L BUN (9-20) mg/dL Creatinine (0.66-1.25) mg/dL Glucose (74-99) mg/dL POC Glucose (mg/dL) 143 H (70-110) mg/dL Hemoglobin A1c (<=6.0) % Diabetes panel 06/29/23 06/29/23 Range/Units 05:26 05:26 Sodium 135 L (137-145) mmol/L Potassium 4.1 (3.5-5.1) mmol/L Chloride 106 (98-107) mmol/L Carbon Dioxide 18 L (22-30) mmol/L BUN 32 H (9-20) mg/dL Creatinine 1.66 H (0.66-1.25) mg/dL Glucose 127 H (74-99) mg/dL Hemoglobin A1c 7.0 H (<=6.0) % Calcium 9.4 (8.4-10.2) mg/dL AST 22 (17-59) U/L ALT 21 (4-49) U/L Alkaline Phosphatase 77 (38-126) U/L Total Protein 6.5 (6.3-8.2) g/dL Albumin 3.8 (3.5-5.0) g/dL Calcium panel 06/29/23 Range/Units 05:26 Calcium 9.4 (8.4-10.2) mg/dL Albumin 3.8 (3.5-5.0) g/dL Pituitary panel 06/29/23 Range/Units 05:26 Sodium 135 L (137-145) mmol/L Potassium 4.1 (3.5-5.1) mmol/L Chloride 106 (98-107) mmol/L Carbon Dioxide 18 L (22-30) mmol/L BUN 32 H (9-20) mg/dL Creatinine 1.66 H (0.66-1.25) mg/dL Glucose 127 H (74-99) mg/dL Calcium 9.4 (8.4-10.2) mg/dL Adrenal panel 06/29/23 Range/Units 05:26 Sodium 135 L (137-145) mmol/L Potassium 4.1 (3.5-5.1) mmol/L Chloride 106 (98-107) mmol/L Carbon Dioxide 18 L (22-30) mmol/L BUN 32 H (9-20) mg/dL Creatinine 1.66 H (0.66-1.25) mg/dL Glucose 127 H (74-99) mg/dL Calcium 9.4 (8.4-10.2) mg/dL Total Bilirubin 1.2 (0.2-1.3) mg/dL AST 22 (17-59) U/L ALT 21 (4-49) U/L Alkaline Phosphatase 77 (38-126) U/L Total Protein 6.5 (6.3-8.2) g/dL Albumin 3.8 (3.5-5.0) g/dL - Imaging Chest x-ray: report reviewed CT scan - abdomen: report reviewed CT scan - chest: report reviewed Assessment and Plan Assessment: Ascending aortic aneurysm measuring 5.[address] scan of the chest Hypertension Hyperlipidemia Coronary artery disease with previous myocardial infarction and history of prev ious PCI Long-term COVID syndrome, COVID infection in January 2021 Chronic systolic heart failure with an ejection fraction of 30 to 35% Diabetes mellitus type 2 Obstructive sleep apnea with home CPAP use BPH Peripheral vascular disease Remote history of nicotine dependence History of vertigo Plan: The patient was seen and examined at his bedside in the emergency department. His chart and diagnostics were reviewed. His case was discussed in detail with Dr. Denton from cardiothoracic surgery. Findings on the CT scan of the chest were reviewed with the patient, the patient understands that he has a 5.3 cm ascending aortic aneurysm. He reports he is not wanting any surgery at this time as it has not grown in over a few year period. Recommended to the patient tight blood pressure control and to follow-up with the cardiothoracic surgeon for serial CT scan for surveillance of the ascending aortic aneurysm. The patient is unsure whether he wants to follow-up and will let us know within the next 24 to 48 hours. Medical management and other comorbidities per primary care service and other consultants Thank you for this consult and we look forward to working with you in the care of this patient. I have personally seen and examined the patient, performed the documentation and the assessment and plan as written. Number of minutes spent on the visit: 30. FINA Cobb
[2023-06-29 11:45] LABS: Glucose,Whole Blood 131 mg/dL (70-110)
--- NOTE | 2023-06-29 12:55 | P.PN ---
Subjective Progress Note Date: 06/29/23 Hospital course: Patient is a very pleasant 67-year-old male with a past medical history of CAD status post stenting, advanced systolic congestive heart failure with a EF of 30%, hypertension, hyperlipidemia, peripheral vascular disease with bilateral lower extremity neuropathy, and thoracic aortic aneurysm. He presented to the hospital on 06/27/2023 with a chief complaint of shortness of breath and worsening exertional dyspnea. Patient underwent evaluation in the emergency department. Vital signs upon arrival show blood pressure 99/67, heart rate 46, respiratory rate 18, temp 98.7 F, and SpO2 of 96% on room air. Shortly after arrival patient's oxygen saturations decreased requiring placement on 4 L O2 via nasal cannula to maintain SpO2 of 95%. EKG was completed showing sinus rhythm with frequent PVCs and a right bundle branch block. Chest x-ray completed and appears to have overall haziness throughout left lung and radiology report states cardiomegaly but be negative for acute cardiopulmonary process. CT abdomen and pelvis was also completed as patient reported right-sided flank and chest wall pain. CT abdomen and pelvis reported prostamegaly indenting the base of the bladder but negative for urinary tract calculi or hydronephrosis, mildly thickened appearance of the bladder wall, right adrenal nodule possibly adenoma and moderate to heavy coronary arterial calcifications. Labs completed and reviewed. CBC showing WBC count of 16.3. Coagulation profile normal findings. BMP reported mild hyperkalemia with potassium of 5.3 but was a hemolyzed specimen, bicarb 19, and an acute kidney injury with BUN of 26, creatinine of 1.66, GFR 42 with baseline creatinine of 0.9. Initial lactate elevated at 2.6 with repeat lactate of 1.3. Liver profile showing elevated total bili of 2.1 otherwise normal findings. Troponin was 0.032 and proBNP was only 339. Urinalysis positive for protein, ketones, leukocytes, 46 WBCs, and 122 hyaline casts. Patient was admitted under services with consultation to cardiology and urology. Physical exam: Patient seen and fully evaluated at the bedside this morning. He was resting comfortably, he remains in the ED awaiting for available bed on 3 S. Patient currently reports just feeling tired and denies feeling short of breath at rest but reports continues with minimal exertion. Vital signs reviewed and stable. General: Nontoxic, no distress and appears stated age. Derm: Skin warm and dry, normal coloration for ethnicity. Head: Atraumatic, normocephalic and symmetric. Large right-sided parotid/salivary gland mass. Eyes: EOMs intact, no lid lag, and anicteric sclera Mouth: no lip lesions, mucus membranes moist Cardiovascular: regular rate and rhythm with normal S1S2, systolic murmur, positive posterior tibial pulses bilaterally, and cap refill < 2 seconds. Lungs: Respirations even, regular, and unlabored on room air. Lungs CTA bi laterally, no rhonchi, no rales, no wheezing, and no accessory muscle usage. Abdominal: soft, nontender to palpation, no guarding, no appreciable organomegaly Ext: ROM intact. No gross muscle atrophy, no edema, no contractures Neuro: Speech clear, face symmetrical and CN II-XII grossly intact with no noted focal neuro deficits Psych: Alert and oriented to person, place, time, and situation. Appropriate and pleasant affect. Assessment and Plan of Care: 67-year-old male with advanced systolic congestive heart failure, presented for concerns of fatigue, tiredness and exertional dyspnea. He was admitted for systolic congestive heart failure exacerbation. Chronic systolic congestive heart failure with left ventricular ejection fraction of 30% Acute kidney injury Exertional dyspnea with mild exertion, generalized weakness, and fatigue. Multifactorial secondary to above. History of CAD with previous stenting Peripheral vascular disease -Cardiology evaluated stating patient euvolemic with no evidence of acute CHF exacerbation and recommending holding of diuretics at this time. -Patient being placed on gentle IV fluid hydration for treatment of his acute kidney injury with 0.9% normal saline at 50 cc/h. -Patient to remain on continuous telemetry monitoring -Troponins trended overnight all negative resulting at 0.032, 0.031, and 0.023. -ProBNP was only 339 -Continue Daily weights and Close monitoring of I's and O's -Cardiac diet with fluid restriction 2 L daily -Lasix, Aldactone, and losartan held secondary to ELOY -Patient to continue daily medication regimen with aspirin 81 mg daily, atorvastatin 40 mg nightly, and hydralazine 25 mg 3 times daily. -Continued close monitoring of electrolytes and renal function. -Continue with supplemental oxygen as needed to maintain SpO2 equal to or greater than 90%. Thoracic aortic aneurysm, 5.[address] chest without contrast completed showing COPD with minimal emphysema and three-vessel coronary artery disease with aneurysmal ectatic thoracic aorta measuring up to 5.3 cm. Patient denies following with cardiothoracic surgeon, order placed for cardiothoracic surgery consult for evaluation of 5.3 cm thoracic aortic aneurysm. BPH with concerns of chronic bladder outlet obstruction Abnormal urinalysis -CT abdomen and pelvis reported prostamegaly indenting the base of the bladder but negative for urinary tract calculi or hydronephrosis, mildly thickened appearance of the bladder wall, right adrenal nodule possibly adenoma and moderate to heavy coronary arterial calcifications. -Urinalysis positive for protein, ketones, leukocytes, 46 WBCs, and 122 hyaline casts. -Patient currently denies urinary complaints. Will hold off on antibiotics at this time, no need for treatment of asymptomatic bacteriuria. -Urology consulted secondary to concerns of prostamegaly indenting the base of bladder and concerns of chronic bladder outlet obstruction. Reviewed documentation in chart, as patient is symptomatic urology recommending no furthe r interventions at this time. Known right salivary gland mass. Continue to follow-up outpatient with ENT. Hypertension. Blood pressures currently running soft. Lasix, losartan, and Aldactone held secondary to ELOY. Patient may continue with hydralazine 25 mg 3 times daily with continued close monitoring of vital signs. Obstructive sleep apnea. Continue use of CPAP nightly and while napping. Diabetes mellitus. Hemoglobin A1c 7.0%.. Patient placed on glycemic protocol with NovoLog sliding scale and will plan on discharging patient home on metformin 500 mg twice daily. Imaging reviewed throughout hospitalization includes: Reviewed chest x-ray and upon personal review showing haziness throughout left lung and concerns of possible lesion left upper lobe order placed for chest CT. CT chest without contrast completed showing COPD with minimal emphysema and three-vessel coronary artery disease with aneurysmal ectatic thoracic aorta measuring up to 5.3 cm but negative for suspicious pulmonary nodule with radiology report stating radiographic findings on chest x-ray correspond to prominent left first rib end. Data reviewed on today's evaluation: Vital signs reviewed and stable with blood pressure 112/80, heart rate 79, respiratory rate 20, temp 97.4 F, and SpO2 of 97% on room air. Morning labs repeated at this time. CBC unremarkable. BMP revealing sodium 135, bicarb 18, BUN of 32, creatinine 1.66, and GFR 42. Hemoglobin A1c is elevated at 7.0%. Magnesium normal findings at 2.0. And liver profile unremarkable. CODE STATUS: Full code DVT prophylaxis: Heparin Anticipated discharge date: Clinical course to determine Anticipated discharge place: Clinical course to determine Patient was seen independently by Nurse Pracitioner. This document was prepared using [employer] dictation software. Please allow for errors in track manager, while rare they do occur. Elbert Ayers COLLECTION OFFICER rendered care for this patient independently, reviewed the findings and plan as documented in the note above. I did not physically speak with or examine the patient on this date. Objective - Vital Signs Vital signs: Vital Signs Temp 98.0 F 06/29/23 06:00 Pulse 73 06/29/23 06:00 Resp 17 06/29/23 06:00 BP 117/89 06/29/23 06:00 Pulse Ox 92 L 06/29/23 06:00 FiO2 21 06/29/23 04:14 Intake & Output 06/28/23 06/29/23 06/29/23 18:59 06:59 18:59 Intake Total 960 Output Total 250 Balance 710 Intake: Oral 960 Output: Urine 250 Other: Voiding Method Urinal - Labs CBC & Chem 7: 06/29/23 05:26 06/29/23 05:26 Labs: Abnormal Lab Results - Last 24 Hours (Table) 06/28/23 06/28/23 06/28/23 Range/Units 03:03 05:14 08:31 WBC 11.8 H (3.8-10.6) k/uL RBC 4.10 L (4.30-5.90) m/uL Hgb 12.5 L (13.0-17.5) gm/dL RDW 16.1 H (11.5-15.5) % Sodium (137-145) mmol/L Carbon Dioxide 19 L (22-30) mmol/L BUN 30 H (9-20) mg/dL Creatinine 1.62 H (0.66-1.25) mg/dL Glucose 123 H (74-99) mg/dL POC Glucose (mg/dL) (70-110) mg/dL Total Bilirubin 1.5 H (0.2-1.3) mg/dL Triglycerides 153.00 H (0.00-149.00) mg/dL 06/28/23 06/28/23 06/28/23 Range/Units 13:23 17:52 21:11 WBC (3.8-10.6) k/uL RBC (4.30-5.90) m/uL Hgb (13.0-17.5) gm/dL RDW (11.5-15.5) % Sodium (137-145) mmol/L Carbon Dioxide (22-30) mmol/L BUN (9-20) mg/dL Creatinine (0.66-1.25) mg/dL Glucose (74-99) mg/dL POC Glucose (mg/dL) 128 H 135 H 114 H (70-110) mg/dL Total Bilirubin (0.2-1.3) mg/dL Triglycerides (0.00-149.00) mg/dL 06/29/23 06/29/23 06/29/23 Range/Units 05:26 05:26 07:35 WBC (3.8-10.6) k/uL RBC (4.30-5.90) m/uL Hgb (13.0-17.5) gm/dL RDW 15.9 H (11.5-15.5) % Sodium 135 L (137-145) mmol/L Carbon Dioxide 18 L (22-30) mmol/L BUN 32 H (9-20) mg/dL Creatinine 1.66 H (0.66-1.25) mg/dL Glucose 127 H (74-99) mg/dL POC Glucose (mg/dL) 143 H (70-110) mg/dL Total Bilirubin (0.2-1.3) mg/dL Triglycerides (0.00-149.00) mg/dL
[2023-06-29] MEDS: SODIUM CHLORIDE 0.9% 1,000 ML IV SCH (13:51)
[2023-06-29] MEDS: ACETAMINOPHEN TAB 325 MG TAB PO PRN (16:27)
[2023-06-29 16:50] LABS: Glucose,Whole Blood 98 mg/dL (70-110)
--- NOTE | 2023-06-29 20:20 | PN ---
PROGRESS NOTE SUBJECTIVE: Mr. Chauhan is a 67-year-old gentleman, who has a history of coronary artery disease, status post previous stenting; hypertension; dyslipidemia; diabetes; and peripheral vascular disease along with congestive heart failure; who presents to hospital with symptoms of generalized fatigue and weakness and has acute renal insufficiency and hypotension. His BNP is normal and does not have any evidence of congestive heart failure. He seems intravascularly volume depleted. We held the diuretics this morning, he is feeling much better. OBJECTIVE: VITAL SIGNS: Afebrile. Heart rate is 79 beats per minute, blood pressure is 112/80, respiratory rate 18, O2 saturation is 97% on room air. NECK: There is no jugular venous distention. CHEST: Reveals good air entry bilaterally. HEART: Reveals first and second heart sounds. No gallop. No murmur. ABDOMEN: Soft. EXTREMITIES: Did not reveal any edema. ASSESSMENT: Acute renal insufficiency; coronary artery disease, status post prior angioplasty; hypertension; dyslipidemia; diabetes; peripheral vascular disease; and history of chronic systolic heart failure. PLAN: I will continue him on his current medications. We will hold the diuretics at this time for another day. MMODL / IJN: [id number] /
[2023-06-29 21:03] LABS: Glucose,Whole Blood 132 mg/dL (70-110)
[2023-06-30 05:39] VITALS: TEMP 97.8
[2023-06-30 06:21] LABS: Glucose,Whole Blood 138 mg/dL (70-110)
[2023-06-30 07:06] LABS: HCT 35.5 % (39.0-53.0); HGB 12.1 gm/dL (13.0-17.5); MCH 31.2 pg (25.0-35.0); MCHC 34.2 g/dL (31.0-37.0); MCV 91.3 fL (80.0-100.0); Mean Platelet Volume 7.8; Platelet Count 270 k/uL (150-450); RBC 3.89 m/uL (4.30-5.90); RDW 15.6 % (11.5-15.5); WBC 7.8 k/uL (3.8-10.6)
[2023-06-30 07:21] LABS: ALT 27 U/L (4-49); AST 25 U/L (17-59); African American GFR (CKD) 60 (>60 ml/min/1.73 sqM); Albumin 3.5 g/dL (3.5-5.0); Alkaline Phosphatase 76 U/L (38-126); Anion Gap 11 mmol/L; Blood Urea Nitrogen 27 mg/dL (9-20); Calcium 9.3 mg/dL (8.4-10.2); Carbon Dioxide 17 mmol/L (22-30); Chloride 109 mmol/L (98-107); Glucose 133 mg/dL (74-99); Magnesium 2.1 mg/dL (1.6-2.3); Non-African American GFR(CKD) 52 (>60 ml/min/1.73 sqM); Potassium 4.1 mmol/L (3.5-5.1); Sodium 137 mmol/L (137-145); Total Bilirubin 0.7 mg/dL (0.2-1.3); Total Protein 6.1 g/dL (6.3-8.2)
[2023-06-30 09:17] VITALS: RESP 16
[2023-06-30 11:36] LABS: Glucose,Whole Blood 123 mg/dL (70-110)
[2023-06-30 12:20] VITALS: BP 140/79; PULSE 63
--- NOTE | 2023-06-30 12:22 | P.DS ---
Providers Date of admission: 06/27/23 21:05 Expected date of discharge: 06/30/23 Attending physician: Mekhi Díaz MD Consults: 06/27/23 21:04 Consult Physician Urgent Consulting Provider: Chandu Leo Consult Reason/Comments: Chest pain with exertional dyspnea Do you want consulting provider notified?: Yes 06/28/23 08:23 Consult Physician Routine Consulting Provider: Frank Cage Consult Reason/Comments: enlarged prostate indenting bladder, concerns of chronic bladder outlet obs Do you want consulting provider notified?: Yes 06/28/23 17:05 Consult Physician Routine Consulting Provider: Mike Oseguera Consult Reason/Comments: thorasic aneurysm 5.3 cm Do you want consulting provider notified?: Yes Primary care physician: Bryce Astudillo [facility] Course: Discharge Diagnosis: Chronic systolic congestive heart failure with left ventricular ejection fraction of 30%. Patient evaluated by cardiology, they are recommending patient continue to hold Aldactone and furosemide until outpatient follow-up in their office in 1 week and we will reevaluate at that time if patient to resume these medications. Patient cleared from cardiac perspective for discharge. Acute kidney injury. Improved. Renal function on day of discharge showing BUN of 27, creatinine 1.40, and GFR of 52. Patient to have repeat BMP in 3 days with results to be sent to both PCP Dr. Astudillo and Dr. Aguillon, life trainer for follow-up and management. Exertional dyspnea with mild exertion, generalized weakness, and fatigue. Multifactorial secondary to above. Improved. History of CAD with previous stenting. Patient to continue daily medication regimen with aspirin 81 mg daily, losartan 100 mg daily, atorvastatin 40 mg nightly, and hydralazine 25 mg 3 times daily. Peripheral vascular disease. Continue daily medication regimen with aspirin 81 mg daily and atorvastatin 40 mg nightly. Thoracic aortic aneurysm, 5.3 cm. Cardiothoracic surgery evaluated secondary to 5.3 cm thoracic aortic aneurysm. Patient is not interested in surgical in tervention at this time, cardiothoracic surgery team recommending patient follow-up outpatient with cardiothoracic surgeon Dr. Oseguera for continued close monitoring of aneurysm. BPH with concerns of chronic bladder outlet obstruction. Urology evaluated patient and stated since patient is asymptomatic of urinary complaints, recommending no further interventions at this time. Abnormal urinalysis. Urinalysis positive for protein, ketones, leukocytes, 46 WBCs, and 122 hyaline casts. Patient asymptomatic of urinary complaints, no need for treatment of asymptomatic bacteriuria. Known right salivary gland mass. Continue to follow-up outpatient with ENT. Hypertension. Patient may continue with hydralazine 25 mg 3 times daily and losartan 100 mg daily. Patient instructed to monitor blood pressure twice daily at home and document findings and daily log to bring with him to his next PCPs appointment. Obstructive sleep apnea. Continue use of CPAP nightly and while napping. Diabetes mellitus. Hemoglobin A1c 7.0%.. Patient discharged home and instructed to monitor blood glucose levels daily and document on a daily log to bring with him to his next PCPs appointment. Patient was started on metformin 500 mg twice daily. Patient reports he was previously taking but personally decided to stop taking because he heard it was bad for his kidneys. Hospital course: Patient is a very pleasant 67-year-old male with a past medical history of CAD status post stenting, advanced systolic congestive heart failure with a EF of 30%, hypertension, hyperlipidemia, peripheral vascular disease with bilateral lower extremity neuropathy, and thoracic aortic aneurysm. He presented to the hospital on 06/27/2023 with a chief complaint of shortness of breath and worsening exertional dyspnea. Patient underwent evaluation in the emergency department. Vital signs upon arrival show blood pressure 99/67, heart rate 46, respiratory rate 18, temp 98.7 F, and SpO2 of 96% on room air. Shortly after arrival patient's oxygen saturations decreased requiring placement on 4 L O2 via nasal cannula to maintain SpO2 of 95%. EKG was completed showing sinus rhythm with frequent PVCs and a right bundle branch block. Chest x-ray completed and appears to have overall haziness throughout left lung and radiology report states cardiomegaly but be negative for acute cardiopulmonary process. CT abdomen and pelvis was also completed as patient reported right-sided flank and chest wall pain. CT abdomen and pelvis reported prostamegaly indenting the base of the bladder but negative for urinary tract calculi or hydronephrosis, mildly thickened appearance of the bladder wall, right adrenal nodule possibly adenoma and moderate to heavy coronary arterial calcifications. Labs completed and reviewed. CBC showing WBC count of 16.3. Coagulation profile normal findings. BMP reported mild hyperkalemia with potassium of 5.3 but was a hemolyzed specimen, bicarb 19, and an acute kidney injury with BUN of 26, creatinine of 1.66, GFR 42 with baseline creatinine of 0.9. Initial lactate elevated at 2.6 with repeat lactate of 1.3. Liver profile showing elevated total bili of 2.1 otherwise normal findings. Troponin was 0.032 and proBNP was only 339. Urinalysis positive for protein, ketones, leukocytes, 46 WBCs, and 122 hyaline casts. Patient was admitted under services with consultation to cardiology and urology. Urology evaluated patient and stated since patient is asymptomatic of urinary complaints, recommending no further interventions at this time. Cardiothoracic surgery evaluated secondary to 5.3 cm thoracic aortic aneurysm. Patient is not interested in surgical intervention at this time, cardiothoracic surgery team recommending patient follow-up outpatient with cardiothoracic surgeon Dr. Oseguera for continued close monitoring of aneurysm. Cardiology evaluated recommending patient continue to hold Aldactone and Lasix until outpatient follow-up in their office in 1 week. Medically, patient is stable at this time, free from any complaints or concerns. Patient medically stable for discharge and to follow-up outpatient with PCP in 1 to 2 days, life trainer in 1 week, and cardiothoracic surgeon in 2 weeks. Physical exam: Vital signs reviewed and stable. General: Nontoxic, no distress and appears stated age. Derm: Skin warm and dry, normal coloration for ethnicity. Head: Atraumatic, normocephalic and symmetric. Large right-sided par otid/salivary gland mass. Eyes: EOMs intact, no lid lag, and anicteric sclera Mouth: no lip lesions, mucus membranes moist Cardiovascular: regular rate and rhythm with normal S1S2, systolic murmur, p ositive posterior tibial pulses bilaterally, and cap refill < 2 seconds. Lungs: Respirations even, regular, and unlabored on room air. Lungs CTA bilaterally, no rhonchi, no rales, no wheezing, and no accessory muscle usage. Abdominal: soft, nontender to palpation, no guarding, no appreciable organomegaly Ext: ROM intact. No gross muscle atrophy, no edema, no contractures Neuro: Speech clear, face symmetrical and CN II-XII grossly intact with no noted focal neuro deficits Psych: Alert and oriented to person, place, time, and situation. Appropriate and pleasant affect. A total of 39 minutes of time were spent preparing this complex discharge summary. Pt was discharged on 06/30/2023 at 12:11 PM. Patient was seen independently by Nurse Practitioner. This document was prepared using [employer] dictation software. Please allow for errors in quarrying manager while rare they do occur. Elbert Ayers NP rendered care for this patient independently, reviewed the findings and plan as documented in the note above. I did not physically speak with or examine the patient on this date. Patient Condition at Discharge: Stable Plan - Discharge Summary Discharge Rx Participant: No New Discharge Prescriptions: New metFORMIN HCL 500 mg PO BID 30 Days #60 tab Continue Losartan Potassium 100 mg PO DAILY Nitroglycerin Sl Tabs [Nitrostat] 0.4 mg SUBLINGUAL Q5M PRN PRN Reason: Chest Pain Budesonide/Glycopyr/Formoterol [Breztri Aerosphere Inhaler] 1 puff INHALATION RT-DAILY PRN PRN Reason: Shortness Of Breath Multivitamins, Thera [Multivitamin (formulary)] 1 tab PO DAILY hydrALAZINE HCL [Apresoline] 100 mg PO TID #90 tablet Aspirin 81 mg PO DAILY #30 tab Atorvastatin [Lipitor] 40 mg PO HS Discontinued Spironolactone [Aldactone] 100 mg PO DAILY #120 tab Furosemide [Lasix] 40 mg PO BID #60 tablet Potassium Chloride [Klor-Con M20] 20 meq PO BID #60 tab Discharge Medication List Losartan Potassium 100 mg PO DAILY 04/04/21 [History] Budesonide/Glycopyr/Formoterol [Breztri Aerosphere Inhaler] 1 puff INHALATION RT-DAILY PRN 04/02/23 [History] Multivitamins, Thera [Multivitamin (formulary)] 1 tab PO DAILY 04/02/23 [History] Nitroglycerin Sl Tabs [Nitrostat] 0.4 mg SUBLINGUAL Q5M PRN 04/02/23 [History] Aspirin 81 mg PO DAILY #30 tab 04/06/23 [Rx] hydrALAZINE HCL [Apresoline] 100 mg PO TID #90 tablet 04/06/23 [Rx] Atorvastatin [Lipitor] 40 mg PO HS 06/27/23 [History] metFORMIN HCL 500 mg PO BID 30 Days #60 tab 06/30/23 [Rx] Follow up Appointment(s)/Referral(s): Delta Aguillon MD [STAFF PHYSICIAN] - 07/04/23 4:15 pm Bryce Astudillo MD [Primary Care Provider] - 07/01/23 3:00 pm (With SOCIAL RESEARCH ASSISTANT Altagracia) Mike Oseguera MD [STAFF PHYSICIAN] - 07/14/23 2:45 pm Ambulatory/Diagnostic Orders: Basic Metabolic Panel [LAB.AMB] Time Frame: 3 Days, Location: None Selected Patient Instructions/Handouts: Acute Kidney Injury (DC), Shortness of Breath (DC) Activity/Diet/Wound Care/Special Instructions: Activity: As tolerated. Take breaks as needed. Diet: Heart healthy and carb consistent diet. Avoid salts, or foods with hidden salts such as canned or boxed foods and frozen dinners. Extra salt makes your heart work harder and traps the fluid in your body for longer. Special Instructions: Take all of your medications as directed and remember to keep all of your doctor's appointments and follow-up as needed. You may resume losartan as previously ordered, as it is important to maintain tight blood pressure control with your known aortic aneurysm, but recommend monitoring your blood pressures twice daily at home and documenting findings and a daily log to bring with you to your next doctor's appointment with your PCP Dr. Astudillo, cardiothoracic surgeon Dr. Oseguera, and life trainer Dr. Aguillon. As we discussed I am also starting you on metformin 500 mg twice daily as your hemoglobin A1c is elevated at 7%. You stated you had a glucometer and blood glucose testing supplies at home, recommend close monitoring of your blood sugars once daily and documenting these findings and a daily log as well to bring with you to your next doctor's appointments with your PCP Dr. Astudillo, cardiothoracic surgeon Dr. Oseguera, and life trainer Dr. Aguillon. Continue to hold diuretics Aldactone (spironolactone) and Lasix (furosemide) until follow-up with your life trainer in 1 week. Thank you for allowing us to participate in your care, it was truly a pleasure having you for our patient!!! . Discharge Disposition: HOME SELF-CARE
--- NOTE | 2023-06-30 14:08 | P.PN ---
Subjective Progress Note Date: 06/30/23 Principal diagnosis: Ascending aortic aneurysm measuring 5.[address] scan of the chest. 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 The patient was seen and examined in follow-up today June 30, 2023 at his bedside on the third floor cardiac stepdown unit. He is currently laying in bed, is awake, alert, oriented x 3 and is in no acute apparent distress. He denies any complaints of pain or shortness of breath at this time. He reports he is anxious to be discharged home. Oxygen saturations are 97% on room air. Discussed with the importance of following up with cardiothoracic surgery for continued surveillance of his ascending aortic aneurysm, and he is agreeable to this. An appointment has been made for him to follow-up in the office to see Dr. Oseguera on July 14, 2023 at 2:45 PM. Laboratory results reviewed. Objective - Vital Signs Vital signs: Vital Signs Temp 97.8 F 06/30/23 08:32 Pulse 59 L 06/30/23 08:32 Resp 16 06/30/23 08:32 BP 133/66 06/30/23 08:32 Pulse Ox 95 06/30/23 08:32 FiO2 21 06/29/23 04:14 Intake & Output 06/29/23 06/30/23 06/30/23 18:59 06:59 18:59 Intake Total 540 960 118 Output Total 300 Balance 540 660 118 Weight 136.078 kg Intake: Oral 540 960 118 Output: Urine 300 Other: Voiding Method Urinal Urinal Urinal - Exam CONSTITUTIONAL: Appears comfortable, cooperative, no apparent acute distress. HEENT: Neck is supple, no JVD, no lymphadenopathy. RESPIRATORY: Lungs sounds essentially clear throughout, diminished to his bilateral bases. Respirations are symmetrical and nonlabored. CARDIOVASCULAR: Regular rhythm and rate. S1 and S2 present, negative for S3, gallop or murmur. GASTROINTESTINAL: Abdomen soft, nontender, nondistended. Active bowel sounds present 4 quadrants. Tolerating diet. Passing flatus. No guarding or rigidity. GENITOURINARY: Continues to void. INTEGUMENTARY: Skin is warm and dry with no evidence of clubbing or cyanosis. NEUROLOGIC: Cranial nerves II through XII intact. No focal deficits. MUSKULOSKELETAL: Able to move all extremities, strength equal bilaterally. PSYCHIATRIC: Alert and oriented to person place and time, appropriate affect, intact judgment and insight. - Allied health notes Allied health notes reviewed: nursing - Labs CBC & Chem 7: 06/30/23 06:25 06/30/23 06:25 Labs: Abnormal Lab Results - Last 24 Hours (Table) 06/29/23 06/29/23 06/29/23 Range/Units 05:26 11:37 21:02 RBC (4.30-5.90) m/uL Hgb (13.0-17.5) gm/dL Hct (39.0-53.0) % RDW (11.5-15.5) % Chloride (98-107) mmol/L Carbon Dioxide (22-30) mmol/L BUN (9-20) mg/dL Creatinine (0.66-1.25) mg/dL Glucose (74-99) mg/dL POC Glucose (mg/dL) 131 H 132 H (70-110) mg/dL Hemoglobin A1c 7.0 H (<=6.0) % Total Protein (6.3-8.2) g/dL 06/30/23 06/30/23 06/30/23 Range/Units 06:19 06:25 06:25 RBC 3.89 L (4.30-5.90) m/uL Hgb 12.1 L (13.0-17.5) gm/dL Hct 35.5 L (39.0-53.0) % RDW 15.6 H (11.5-15.5) % Chloride 109 H (98-107) mmol/L Carbon Dioxide 17 L (22-30) mmol/L BUN 27 H (9-20) mg/dL Creatinine 1.40 H (0.66-1.25) mg/dL Glucose 133 H (74-99) mg/dL POC Glucose (mg/dL) 138 H (70-110) mg/dL Hemoglobin A1c (<=6.0) % Total Protein 6.1 L (6.3-8.2) g/dL Microbiology - Last 24 Hours (Table) 06/28/23 05:14 Blood Culture - Preliminary Blood Assessment and Plan Assessment: Ascending aortic aneurysm measuring 5.[address] scan of the chest Hypertension Hyperlipidemia Coronary artery disease with previous myocardial infarction and history of previous PCI Long-term COVID syndrome, COVID infection in January 2021 Chronic systolic heart failure with an ejection fraction of 30 to 35% Diabetes mellitus type 2 Obstructive sleep apnea with home CPAP use BPH Peripheral vascular disease Remote history of nicotine dependence History of vertigo Plan: The patient is agreeable to follow-up with Dr. Oseguera from cardiothoracic surgery for continued surveillance of his ascending aorta, he does not want to undergo surgery at this time. Discussed the importance of blood pressure control with the patient. Medical management and other comorbidities per primary care service. More recommendations to follow based on patient's clinical course. Time with Patient: Less than 30
--- NOTE | 2023-06-30 14:17 | P.PN ---
Subjective HISTORY OF PRESENT ILLNESS: This is a 67-year-old male with a past medical history significant for coronary artery disease with previous stenting, hypertension, hyperlipidemia, diabetes, peripheral vascular disease, congestive heart failure, and morbid obesity. Patient follows in the office with Dr. Aguillon. We have been asked to see the patient in consultation for chest pain with exertional dyspnea. Patient examined at the bedside in the emergency room. Patient presented to the hospital with a chief complaint of fatigue. Patient states he has been feeling weak over the past few weeks and is unable to perform his normal daily activities. The patient denied having any chest pain or pressure. He currently denies any shortness of breath. Patient was found to have acute kidney injury with a creatinine of 1.66. Previous creatinine was 0.96 in April 2023. It is noted that the patient was hospitalized in April 2023 for heart failure. Patient states he has not followed up in the office since being discharged from the hospital. It is noted that the patient has been hypotensive since coming to the hospital with a systolic blood pressure ranging between 8090. DIAGNOSTICS: - EKG reveals sinus mechanism with right bundle branch block with nonspecific ST-T wave changes. EKG similar to previous. - Chest xray cardiomegaly without acute cardiopulmonary abnormality - Laboratory data: WBC 11.8. Hemoglobin 12.5. Platelet count 251. Sodium 134. Potassium 4.4. BUN 30. Creatinine 1.62. Bilirubin 1.5. Troponin negative x 3. proBNP 339. - Current home cardiac medications include hydralazine 100 mg 3 times daily, spironolactone 100 mg daily, losartan 100 mg daily, Lasix 40 mg twice a day, Lipitor 40 mg at night, and aspirin 81 mg daily - Most recent echocardiogram obtained in April 2023 revealed ejection fractio n 30 to 35%, mild to moderate concentric LVH, mild AI, trace TR - Patient underwent renal artery Doppler in April 2023 which is a technically difficult study with limited visualization but did not reveal any significant renal artery stenosis - Cardiac catheterization history: October 2021 revealing calcified coronary arteries. Patent stent in the LAD and left circumflex. Mild to moderate tripl e-vessel disease. Right dominant system. Medical management was recommended. 06/30/2023 Patient examined this morning at the bedside. The patient denies chest pain or pressure. He denies shortness of breath. He denies dizziness or lightheadedness. Patient's vital signs are stable. Kidney function has improved. Creatinine 1.40 today. He has been evaluated by CT surgery for ascending aortic aneurysm. Patient is to follow-up on an outpatient basis with Dr. Oseguera. PHYSICAL EXAM: VITAL SIGNS: Reviewed. GENERAL: Well-developed in no acute distress. NECK: Supple. No JVD or thyromegaly LUNGS: Respirations even and unlabored. Lungs essentially clear to auscultation bilaterally. HEART: Regular rate and rhythm. S1 and S2 heard. EXTREMITIES: Normal range of motion. No clubbing or cyanosis. Peripheral pulses intact. No lower extremity edema ASSESSMENT: Generalized weakness and fatigue Acute kidney injury Hypotension Chronic heart failure with reduced EF, 30 to 35%, currently euvolemic, proBNP 339 Coronary artery disease with previous stenting Hypertension Hyperlipidemia Diabetes Peripheral vascular disease Morbid obesity: BMI 35.6 Ascending aortic aneurysm, measuring 5.3 cm PLAN: Continue current cardiac medications Hold diuretics at the time of discharge. Will reevaluate resuming diuretics at patient's follow-up visit. The patient is currently stable for discharge today from a cardiac standpoint He is to follow-up postdischarge with Dr. Aguillon. Nurse practitioner note has been reviewed by physician. Signing provider agrees with the documented findings, assessment, and plan of care documented by ELEMENTARY EDUCATION TUTOR as a scribe. Objective - Vital Signs Vital signs: Vital Signs Temp 97.8 F 06/30/23 08:32 Pulse 63 06/30/23 11:52 Resp 16 06/30/23 11:52 BP 140/79 06/30/23 11:52 Pulse Ox 94 L 06/30/23 11:52 FiO2 21 06/29/23 04:14 Intake & Output 06/29/23 06/30/23 06/30/23 18:59 06:59 18:59 Intake Total 540 960 118 Output Total 300 Balance 540 660 118 Weight 136.078 kg Intake: Oral 540 960 118 Output: Urine 300 Other: Voiding Method Urinal Urinal Urinal - Labs CBC & Chem 7: 06/30/23 06:25 06/30/23 06:25 Labs: Abnormal Lab Results - Last 24 Hours (Table) 06/29/23 06/30/23 06/30/23 Range/Units 21:02 06:19 06:25 RBC 3.89 L (4.30-5.90) m/uL Hgb 12.1 L (13.0-17.5) gm/dL Hct 35.5 L (39.0-53.0) % RDW 15.6 H (11.5-15.5) % Chloride (98-107) mmol/L Carbon Dioxide (22-30) mmol/L BUN (9-20) mg/dL Creatinine (0.66-1.25) mg/dL Glucose (74-99) mg/dL POC Glucose (mg/dL) 132 H 138 H (70-110) mg/dL Total Protein (6.3-8.2) g/dL 06/30/23 06/30/23 Range/Units 06:25 11:34 RBC (4.30-5.90) m/uL Hgb (13.0-17.5) gm/dL Hct (39.0-53.0) % RDW (11.5-15.5) % Chloride 109 H (98-107) mmol/L Carbon Dioxide 17 L (22-30) mmol/L BUN 27 H (9-20) mg/dL Creatinine 1.40 H (0.66-1.25) mg/dL Glucose 133 H (74-99) mg/dL POC Glucose (mg/dL) 123 H (70-110) mg/dL Total Protein 6.1 L (6.3-8.2) g/dL Microbiology - Last 24 Hours (Table) 06/28/23 05:14 Blood Culture - Preliminary Blood
== END 2023-06-30 14:05 | disposition home or self-care (01) ==
LOC: EC 15:59 → 3SCARD 21:05
PROVIDERS: ADMIT Internal Medicine; ATTEND Internal Medicine
DX: I50.22 Chronic systolic (congestive) heart failure (principal); I25.10 Atherosclerotic heart disease of native coronary artery without angina pectoris; I11.0 Hypertensive heart disease with heart failure; I25.2 Old myocardial infarction; Z86.16 Personal history of COVID-19; N40.0 Benign prostatic hyperplasia without lower urinary tract symptoms; K11.8 Other diseases of salivary glands; G47.33 Obstructive sleep apnea (adult) (pediatric); E11.41 Type 2 diabetes mellitus with diabetic mononeuropathy
CPT/HCPCS: 96360; 96361; 96372 ×5; 99285; 36415; 94660; 94640 ×3; 93005 ×2; 83880; 80061; 80053 ×4; 83605; 83735 ×4; 84100; 84484 ×2; 85025; 85027 ×3; 85610; 81001; 87040; 83036; 71046; 71250; 74176; G0378 ×4; J1644 ×3

== ENCOUNTER 2023-10-03 14:27 | Observation (INO) | payer MEDICARE ==
--- NOTE | 2023-10-03 14:59 | ED ---
General Adult HPI - General Source: patient, RN notes reviewed Mode of arrival: wheelchair Limitations: no limitations <Nelson Martin - Last Filed: 10/03/23 14:57> - General Source: RN notes reviewed <Melissa Duran - Last Filed: 10/03/23 20:56> - General Chief complaint: Dizziness Stated complaint: Abn EKG sent from Dr Time Seen by Provider: 10/03/23 14:46 - History of Present Illness Initial comments: Quick note -68-year-old male presents emergency department from home PCPs office for irregular heartbeat, dizziness. Patient states that his blood pressure has been elevated. He states he has not felt well recently has had some chills. He does admit that he is short of breath but states he had chronic shortness of breath from COVID. Patient states he had an EKG today showing irregular heartbeat which she has no history of. (Nelson Martin) 68-year-old male with history of CHF. CAD, and hypertension sent by Dr. Karen diaz's office for abnormal EKG. His is present upon examination and states he has been dizzy, weak, and short of breath for the past week. He takes daily baby aspirin. He has a history of 8 stents. Denies current chest pain. (Melissa Duran) - Related Data Home Medications Medication Instructions Recorded Confirmed Losartan Potassium 100 mg PO DAILY 04/04/21 10/03/23 Budesonide/Glycopyr/Formoterol 1 puff INHALATION RT-DAILY PRN 04/02/23 10/03/23 [Breztri Aerosphere Inhaler] Atorvastatin [Lipitor] 40 mg PO HS 06/27/23 10/03/23 Furosemide [Lasix] 20 mg PO DAILY PRN 10/03/23 10/03/23 Metoprolol Succinate (ER) [Toprol 25 mg PO DAILY 10/03/23 10/03/23 Xl] Potassium Chloride ER [K-Dur 20] 20 meq PO DAILY 10/03/23 10/03/23 Previous Rx's Medication Instructions Recorded Aspirin 81 mg PO DAILY #30 tab 04/06/23 hydrALAZINE HCL [Apresoline] 100 mg PO TID #90 tablet 04/06/23 Allergies Allergy/AdvReac Type Severity Reaction Status Date / Time Penicillins Allergy Severe Swelling Verified 10/03/23 17:56 amlodipine [From Lotrel] Allergy ITCHING/SWE Verified 10/03/23 17:56 LLING benazepril [From Lotrel] Allergy ITCHING/SWE Verified 10/03/23 17:56 LLING Review of Systems ROS Other: All systems not noted in ROS Statement are negative. <Nelson Martin - Last Filed: 10/03/23 14:57> ROS Other: All systems not noted in ROS Statement are negative. <Melissa Duran - Last Filed: 10/03/23 20:56> ROS Statement: Those systems with pertinent positive or pertinent negative responses have been documented in the HPI. Past Medical History Past Medical History: Coronary Artery Disease (CAD), Cancer, Heart Failure, Diabetes Mellitus, Hypertension, Myocardial Infarction (VA), Osteoarthritis (OA), Prostate Disorder, Sleep Apnea/CPAP/BIPAP, Vascular Disorder Additional Past Medical History / Comment(s): Hx [place] X4. Hx Covid 02/20, had mononucal antibodies (with reaction), still has residual vertigo, aches and pains and brain fog. Neuropathy bilateral feet. CPAP use. Hx right ear basal cell skin cancer(removed). Slight BPH, elevate PSA. PVD. Thoracic Aortic Aneurysm. Last Myocardial Infarction Date:: 08/11/19 History of Any Multi-Drug Resistant Organisms: None Reported Past Surgical History: Cholecystectomy, Heart Catheterization, Heart Catheterization With Stent, Joint Replacement, Orthopedic Surgery Additional Past Surgical History / Comment(s): PCI with a total of 7 stents, bilateral knee ACLs, total left knee arthroplasty, right knee arthroscopy, bilateral surgery on elbows, right ear cancer/reconstructive surgery, all teeth removed. Past Anesthesia/Blood Transfusion Reactions: No Reported Reaction Additional Past Anesthesia/Blood Transfusion Reaction / Comment(s): Couldn't uri yoshi after gallbladder surgery, had to be straight cathed X1. Date of Last Stent Placement:: 2017 Past Psychological History: No Psychological Hx Reported Smoking Status: Former smoker Past Alcohol Use History: Rare Past Drug Use History: None Reported - Past Family History Father Family Medical History: Dementia Additional Family Medical History / Comment(s): Father is . Mother Family Medical History: Cancer Additional Family Medical History / Comment(s): MOTHER OF CANCER-FOUND IN LIVER-PRIMARY NEVER KNOWN. <Nelson Martin - Last Filed: 10/03/23 14:57> General Exam Limitations: no limitations <Nelson Martin - Last Filed: 10/03/23 14:57> General appearance: alert, in no apparent distress Head exam: Present: atraumatic, normocephalic, normal inspection Eye exam: Present: normal appearance, PERRL, EOMI. Absent: scleral icterus, conjunctival injection, periorbital swelling Respiratory exam: Present: normal lung sounds bilaterally. Absent: respiratory distress, wheezes, rales, rhonchi, stridor Cardiovascular Exam: Present: regular rate, normal rhythm, normal heart sounds. Absent: systolic murmur, diastolic murmur, rubs, gallop, clicks GI/Abdominal exam: Present: soft, normal bowel sounds. Absent: distended, tenderness, guarding, rebound, rigid Neurological exam: Present: alert, oriented X3 Psychiatric exam: Present: normal affect, normal mood Skin exam: Present: warm, dry, intact, normal color. Absent: rash <Melissa Duran - Last Filed: 10/03/23 20:56> - General Exam Comments Initial Comments: Visual Physical Exam Vital signs reviewed General: Well-appearing, nontoxic, no acute distress. Head: Normocephalic, atraumatic Eyes: PERRLA, EOMI ENT: Airway patent Chest: Nonlabored breathing Skin: No visual rash, normal skin tone Neuro: Alert and oriented 3 Musculoskeletal: No gross abnormalities (Nelson Martin) Course Vital Signs 10/03/23 10/03/23 10/03/23 14:51 16:08 20:07 Temperature 99.2 F 98.1 F Pulse Rate 84 82 82 Respiratory 20 16 18 Rate Blood Pressure 218/127 190/120 185/113 O2 Sat by Pulse 95 94 L 93 L Oximetry EKG Findings - EKG Results: EKG: interpreted by ERMD (EKG reveals sinus rhythm with left posterior fascicular block and occasional PVCs. Ventricular rate 75 bpm, MD interval 190, QRS duration 161, QT/QTc 437/465) <Melissa Duran - Last Filed: 10/03/23 20:56> Medical Decision Making <Nelson Martin - Last Filed: 10/03/23 14:57> - Lab Data Result diagrams: 10/03/23 14:57 10/03/23 16:08 <Melissa Duran - Last Filed: 10/03/23 20:56> - Medical Decision Making I completed the quick note portion of this chart signed Nelson Martin PA-C (Nelson Martin) Was pt. sent in by a medical professional or institution (LA[facility] Vides, PRODUCT MARKETING DIRECTOR, urgent care, hospital, or fpc...) When possible be specific @ -Sent by Dr. Astudillo's office for abnormal EKG Did you speak to anyone other than the patient for history (EMS, parent, family, police, friend...)? What history was obtained from this source @ -Patient's supplemented history Did you review nursing and triage notes (agree or disagree)? Why? @ -I reviewed and agree with nursing and triage notes Were old charts reviewed (outside hosp., previous admission, EMS record, old EKG, old radiological studies, urgent care reports/EKG's, fpc records)? Report findings @ -No old charts were reviewed Differential Diagnosis (chest pain, altered mental status, abdominal pain women, abdominal pain men, vaginal bleeding, weakness, fever, dyspnea, syncope, headache, dizziness, GI bleed, back pain, seizure, CVA, palpatations, mental health, musculoskeletal)? @ -Differential Dyspnea: Coronary syndrome, arrhythmia, tamponade, asthma, COPD, pulmonary embolism, pneumonia, pneumothorax, pulmonary effusion, anaphylaxis, diabetic ketoacidosis, flailed chest, pulmonary contusion, diaphragmatic rupture, anemia, tramaine romuscular, this is not meant to be an all-inclusive list. EKG interpreted by me (3pts min.). @ -As above X-rays interpreted by me (1pt min.). @ -Chest x-ray reveals mild cardiomegaly and diffuse interstitial density CT interpreted by me (1pt min.). @ -None done U/S interpreted by me (1pt. min.). @ -None done What testing was considered but not performed or refused? (CT, X-rays, U/S, labs)? Why? @ -None What meds were considered but not given or refused? Why? @ -None Did you discuss the management of the patient with other professionals (professionals i.e. ALINA Vides, PRODUCT MARKETING DIRECTOR, lab, RT, psych nurse, social organization professor, data analytics chief scientist, teacher, chief business development officer, skilled nursing case manager)? Give summary @ -I spoke with Dr. Hernandez who accepts admission at this time for congestive heart failure exacerbation Was smoking cessation discussed for >3mins.? @ -No Was critical care preformed (if so, how long)? @ -No Were there social determinants of health that impacted care today? How? (Homelessness, low income, unemployed, alcoholism, drug addiction, transportation, low edu. Level, literacy, decrease access to med. care, custodial, r ehab)? @ -No Was there de-escalation of care discussed even if they declined (Discuss DNR or withdrawal of care, Hospice)? DNR status @ -No What co-morbidities impacted this encounter? (DM, HTN, Smoking, COPD, CAD, Cancer, CVA, ARF, Chemo, Hep., AIDS, mental health diagnosis, sleep apnea, morbid obesity)? @ -CHF Was patient admitted / discharged? Hospital course, mention meds given and route, prescriptions, significant lab abnormalities, going to OR and other pertinent info. @ -Patient was admitted. Patient was sent by Dr. Astudillo's office for abnormal EKG. Patient's explained that patient has been feeling increasing shortness of breath and lightheadedness over the past week. Denies chest pain. Vital signs are remarkable for elevated blood pressure at 190/120. Patient is satting 94% on room air. EKG reveals normal sinus rhythm with left posterior fascicular block. Lab work including CBC, CMP, troponin, BNP is remarkable for troponin of 0.082, potassium 3.4, and BNP 3000. Chest x-ray reveals diffuse interstitial density. Patient was given 2 g IV magnesium. I spoke with Dr. Hernandez who accepts admission at this time for congestive heart failure exacerbation with consultation to cardiology services. Patient is agreeable to this plan. Case was discussed with my ED attending Dr. Healy. Undiagnosed new problem with uncertain prognosis? @ -No Drug Therapy requiring intensive monitoring for toxicity (Heparin, Nitro, Insulin, Cardizem)? @ -No Were any procedures done? @ -No Diagnosis/symptom? @ -Acute congestive heart failure exacerbation Acute, or Chronic, or Acute on Chronic? @ -Acute Uncomplicated (without systemic symptoms) or Complicated (systemic symptoms)? @ -Complicated Side effects of treatment? @ -No Exacerbation, Progression, or Severe Exacerbation? @ -No Poses a threat to life or bodily function? How? (Chest pain, [place], [place], pneumonia, PE, COPD, DKA, ARF, appy, cholecystitis, CVA, Diverticulitis, Homicidal, Suicidal, threat to staff... and all critical care pts) @ -Yes (Melissa Duran) - Lab Data Lab Results 10/03/23 10/03/23 10/03/23 Range/Units 14:57 14:57 16:08 WBC 7.6 (3.8-10.6) k/uL RBC 4.95 (4.30-5.90) m/uL Hgb 14.5 (13.0-17.5) gm/dL Hct 45.1 (39.0-53.0) % MCV 91.0 (80.0-100.0) fL MCH 29.2 (25.0-35.0) pg MCHC 32.1 (31.0-37.0) g/dL RDW 14.3 (11.5-15.5) % Plt Count 279 (150-450) k/uL MPV 7.6 Neutrophils % 74 % Lymphocytes % 15 % Monocytes % 7 % Eosinophils % 3 % Basophils % 1 % Neutrophils # 5.6 (1.3-7.7) k/uL Lymphocytes # 1.2 (1.0-4.8) k/uL Monocytes # 0.5 (0-1.0) k/uL Eosinophils # 0.2 (0-0.7) k/uL Basophils # 0.0 (0-0.2) k/uL Hypochromasia Moderate PT 10.9 (10.0-12.5) sec INR 1.0 (<1.2) APTT 25.1 (22.0-30.0) sec Sodium (137-145) mmol/L Potassium (3.5-5.1) mmol/L Chloride (98-107) mmol/L Carbon Dioxide (22-30) mmol/L Anion Gap mmol/L BUN (9-20) mg/dL Creatinine (0.66-1.25) mg/dL Est GFR (CKD-EPI)AfAm (>60 ml/min/1.73 sqM) Est GFR (CKD-EPI)NonAf (>60 ml/min/1.73 sqM) Glucose (74-99) mg/dL Calcium (8.4-10.2) mg/dL Magnesium (1.6-2.3) mg/dL Total Bilirubin (0.2-1.3) mg/dL AST (17-59) U/L ALT (4-49) U/L Alkaline Phosphatase (38-126) U/L Troponin I 0.082 H* (0.000-0.034) ng/mL NT-Pro-B Natriuret Pep pg/mL Total Protein (6.3-8.2) g/dL Albumin (3.5-5.0) g/dL 10/03/23 10/03/23 Range/Units 16:08 19:47 WBC (3.8-10.6) k/uL RBC (4.30-5.90) m/uL Hgb (13.0-17.5) gm/dL Hct (39.0-53.0) % MCV (80.0-100.0) fL MCH (25.0-35.0) pg MCHC (31.0-37.0) g/dL RDW (11.5-15.5) % Plt Count (150-450) k/uL MPV Neutrophils % % Lymphocytes % % Monocytes % % Eosinophils % % Basophils % % Neutrophils # (1.3-7.7) k/uL Lymphocytes # (1.0-4.8) k/uL Monocytes # (0-1.0) k/uL Eosinophils # (0-0.7) k/uL Basophils # (0-0.2) k/uL Hypochromasia PT (10.0-12.5) sec INR (<1.2) APTT (22.0-30.0) sec Sodium 140 (137-145) mmol/L Potassium 3.4 L (3.5-5.1) mmol/L Chloride 110 H (98-107) mmol/L Carbon Dioxide 21 L (22-30) mmol/L Anion Gap 9 mmol/L BUN 11 (9-20) mg/dL Creatinine 0.75 (0.66-1.25) mg/dL Est GFR (CKD-EPI)AfAm >90 (>60 ml/min/1.73 sqM) Est GFR (CKD-EPI)NonAf >90 (>60 ml/min/1.73 sqM) Glucose 90 (74-99) mg/dL Calcium 9.3 (8.4-10.2) mg/dL Magnesium 1.9 (1.6-2.3) mg/dL Total Bilirubin 1.6 H (0.2-1.3) mg/dL AST 47 (17-59) U/L ALT 31 (4-49) U/L Alkaline Phosphatase 87 (38-126) U/L Troponin I (0.000-0.034) ng/mL NT-Pro-B Natriuret Pep 3000 pg/mL Total Protein 6.3 (6.3-8.2) g/dL Albumin 3.9 (3.5-5.0) g/dL Disposition <Nelson Martin - Last Filed: 10/03/23 14:57> Time of Disposition: 20:52 <Melisas Duran - Last Filed: 10/03/23 20:56> Clinical Impression: Acute exacerbation of congestive heart failure Disposition: ADMITTED IP TO THIS HOSP Referrals: Bryce Astudillo MD [Primary Care Provider] - 1-2 days
[2023-10-03 15:32] LABS: Basophils % (A) 1 %; Eosinophils # (A) 0.2 k/uL (0-0.7); Eosinophils % (A) 3 %; HCT 45.1 % (39.0-53.0); HGB 14.5 gm/dL (13.0-17.5); Hypochromasia Moderate; Lymphocytes # (A) 1.2 k/uL (1.0-4.8); Lymphocytes % (A) 15 %; MCH 29.2 pg (25.0-35.0); MCHC 32.1 g/dL (31.0-37.0); Mean Platelet Volume 7.6; Monocytes # (A) 0.5 k/uL (0-1.0); Monocytes % (A) 7 %; Neutrophils # (A) 5.6 k/uL (1.3-7.7); Neutrophils % (A) 74 %; Platelet Count 279 k/uL (150-450); RBC 4.95 m/uL (4.30-5.90); RDW 14.3 % (11.5-15.5); WBC 7.6 k/uL (3.8-10.6)
[2023-10-03 15:51] LABS: Partial Thromboplastin Time 25.1 sec (22.0-30.0)
[2023-10-03 16:17] LABS: Prothrombin Time 10.9 sec (10.0-12.5)
[2023-10-03 16:40] LABS: ALT 31 U/L (4-49); AST 47 U/L (17-59); African American GFR (CKD) >90 (>60 ml/min/1.73 sqM); Albumin 3.9 g/dL (3.5-5.0); Alkaline Phosphatase 87 U/L (38-126); Anion Gap 9 mmol/L; Blood Urea Nitrogen 11 mg/dL (9-20); Calcium 9.3 mg/dL (8.4-10.2); Carbon Dioxide 21 mmol/L (22-30); Chloride 110 mmol/L (98-107); Glucose 90 mg/dL (74-99); Magnesium 1.9 mg/dL (1.6-2.3); Non-African American GFR(CKD) >90 (>60 ml/min/1.73 sqM); Potassium 3.4 mmol/L (3.5-5.1); Sodium 140 mmol/L (137-145); Total Bilirubin 1.6 mg/dL (0.2-1.3); Total Protein 6.3 g/dL (6.3-8.2)
[2023-10-03] MEDS: ASPIRIN 81 MG PO STA (20:04)
[2023-10-03] MEDS: MAGNESIUM SULFATE-D5W PMX 1 GM in DEXTROSE/WATER 1 100ML.BAG IVPB SCH (20:05)
--- NOTE | 2023-10-03 20:21 | XR ---
EXAMINATION TYPE: XR chest 2V DATE OF EXAM: 10/03/2023 COMPARISON: 06/27/2023 HISTORY: 68 year-old male shortness of breath TECHNIQUE: PA and lateral views FINDINGS: Heart mildly enlarged. Atherosclerotic arch calcifications. Diffuse interstitial density without cons olidation or pleural effusion. IMPRESSION: 1. Mild cardiomegaly. 2. Diffuse interstitial density could reflect bronchitis, atypical pneumonia, or mild pulmonary vascu lar congestion. Clinically correlate.
--- NOTE | 2023-10-04 01:44 | P.HPIM ---
History of Present Illness H&P Date: 10/03/23 Patient is a 60-year-old male with a PMH of CAD status post stents, systolic and diastolic CHF (EF 30 to 35% on echo from 04/26), COPD, type II DM, hypertension, hyperlipidemia, SANJU who presents to the emergency room with complaints of shortness of breath. The patient reports that over the past 2 to 3 days, he has been experiencing gradually worsening dyspnea on exertion and mild lower extremity swelling. He denies experiencing chest discomfort, fever, chills, cough, nausea, vomiting, abdominal pain, diarrhea. He does report compliance with his diuretics at home. Chest x-ray in the emergency room revealed pulmonary vascular congestion with mild cardiomegaly. EKG revealed sinus rhythm with PVCs and APCs with a right bundle branch block and a left posterior fascicular block at 75 bpm as reviewed by me. Laboratory evaluation was remarkable for troponin of 0.082, WBC count 7.6, hemoglobin 14.5, sodium 140, potassium 3.4, CO2 21, BUN 11, creatinine 0.75, with proBNP 3000. ED documentation reviewed and case discussed with ED provider. Review of systems: Pertinent positives and negatives as discussed in HPI, a complete review of systems was performed and all other systems are negative. Physical examination: Vital signs reviewed General: non toxic, no distress, appears at stated age, obese Derm: no unusual rashes/lesions, warm Head: atraumatic, normocephalic, symmetric Eyes: EOMI, no lid lag, anicteric sclera, pupils equal round reactive to light ENT: Nose and ears atraumatic Neck: No cervical lymphadenopathy, trachea midline, supple Mouth: no lip lesion, mucus membranes moist Cardiovascular: S1S2 reg, no murmur, positive dorsalis pedis pulse bilateral, 1+ bilateral lower extremity pitting edema Lungs: Bibasilar rales, no wheezing or ronchi, no accessory muscle use Abdominal: soft, nontender to palpation, no guarding Ext: muscle strength 5 out of 5 in all 4 extremities grossly, no gross muscle atrophy, no contractures, Neuro: CN II-XI grossly intact, no gross focal neuro deficits Psych: Alert, oriented, appropriate affect Assessment: Acute systolic CHF exacerbation Elevated troponin, suspect type II ND in setting of ongoing CHF exacerbation, patient currently denying chest discomfort Hypokalemia Elevated total bilirubin Chronic conditions: Type II DM, COPD, hypertension, hyperlipidemia, SANJU Imaging: Chest x-ray in the emergency room revealed pulmonary vascular congestion with mild cardiomegaly. EKG revealed sinus rhythm with PVCs and APCs with a right bundle branch block and a left posterior fascicular block at 75 bpm as reviewed by me. Data Review: Laboratory evaluation was remarkable for troponin of 0.082, WBC count 7.6, hemoglobin 14.5, sodium 140, potassium 3.4, CO2 21, BUN 11, creatinine 0.75, with proBNP 3000. Plan: Continue with Lasix 40 mg IV push every 12 hourly Trend troponin Intake and output Daily weights Fluid restriction Cardiology consulted Monitor electrolytes daily Cardiac monitoring Insulin sliding scale and blood glucose monitoring Resume patient's home medications including Toprol, losartan, hydralazine, Lipitor, and aspirin DVT prophylaxis: Lovenox subcu The patient is admitted with an anticipated greater than 2 midnight stay for evaluation of CHF CODE STATUS: Full Code Discussed with: Patient Anticipated discharge place: Home Past Medical History Past Medical History: Coronary Artery Disease (CAD), Cancer, Heart Failure, Diabetes Mellitus, Hypertension, Myocardial Infarction (ND), Osteoarthritis (OA), Prostate Disorder, Sleep Apnea/CPAP/BIPAP, Vascular Disorder Additional Past Medical History / Comment(s): Hx [place] X4. Hx Covid 02/20, had mononucal antibodies (with reaction), still has residual vertigo, aches and pains and brain fog. Neuropathy bilateral feet. CPAP use. Hx right ear basal cell skin cancer(removed). Slight BPH, elevate PSA. PVD. Thoracic Aortic Aneurysm. Last Myocardial Infarction Date:: 08/11/19 History of Any Multi-Drug Resistant Organisms: None Reported Past Surgical History: Cholecystectomy, Heart Catheterization, Heart Catheteriz ation With Stent, Joint Replacement, Orthopedic Surgery Additional Past Surgical History / Comment(s): PCI with a total of 7 stents, bilateral knee ACLs, total left knee arthroplasty, right knee arthroscopy, bilateral surgery on elbows, right ear cancer/reconstructive surgery, all teeth removed. Past Anesthesia/Blood Transfusion Reactions: No Reported Reaction Additional Past Anesthesia/Blood Transfusion Reaction / Comment(s): Couldn't urinate after gallbladder surgery, had to be straight cathed X1. Date of Last Stent Placement:: 2017 Past Psychological History: No Psychological Hx Reported Smoking Status: Former smoker Past Alcohol Use History: Rare Past Drug Use History: None Reported - Past Family History Father Family Medical History: Dementia Additional Family Medical History / Comment(s): Father is . Mother Family Medical History: Cancer Additional Family Medical History / Comment(s): MOTHER OF CANCER-FOUND IN LIVER-PRIMARY NEVER KNOWN. Medications and Allergies Home Medications Medication Instructions Recorded Confirmed Type Losartan Potassium 100 mg PO DAILY 04/04/21 10/03/23 History Budesonide/Glycopyr/Formoterol 1 puff INHALATION RT-DAILY PRN 04/02/23 10/03/23 History [Breztri Aerosphere Inhaler] Aspirin 81 mg PO DAILY #30 tab 04/06/23 10/03/23 Rx hydrALAZINE HCL [Apresoline] 100 mg PO TID #90 tablet 04/06/23 10/03/23 Rx Atorvastatin [Lipitor] 40 mg PO HS 06/27/23 10/03/23 History Furosemide [Lasix] 20 mg PO DAILY PRN 10/03/23 10/03/23 History Metoprolol Succinate (ER) [Toprol 25 mg PO DAILY 10/03/23 10/03/23 History Xl] Potassium Chloride ER [K-Dur 20] 20 meq PO DAILY 10/03/23 10/03/23 History Allergies Allergy/AdvReac Type Severity Reaction Status Date / Time Penicillins Allergy Severe Swelling Verified 10/03/23 17:56 amlodipine [From Lotrel] Allergy ITCHING/SWE Verified 10/03/23 17:56 LLING benazepril [From Lotrel] Allergy ITCHING/SWE Verified 10/03/23 17:56 LLING Physical Exam Vitals: Vital Signs Temp Pulse Resp BP Pulse Ox 10/03/23 21:00 63 20 185/104 94 L 10/03/23 20:07 98.1 F 82 18 185/113 93 L 10/03/23 16:08 82 16 190/120 94 L 10/03/23 14:51 99.2 F 84 20 218/127 95 Intake and Output 10/03/23 10/03/23 10/04/23 14:59 22:59 06:59 Other: Weight 145.15 kg Results CBC & Chem 7: 10/03/23 14:57 10/03/23 16:08 Labs: Abnormal Lab Results - Last 24 Hours (Table) 0810/03/23 10/03/23 Range/Units 16:08 16:08 21:37 Potassium 3.4 L (3.5-5.1) mmol/L Chloride 110 H (98-107) mmol/L Carbon Dioxide 21 L (22-30) mmol/L Total Bilirubin 1.6 H (0.2-1.3) mg/dL Troponin I 0.082 H* 0.085 H* (0.000-0.034) ng/mL
[2023-10-04] MEDS: FUROSEMIDE 10 MG/ML 4 ML VIAL IV SCH (05:01)
[2023-10-04] MEDS: hydrALAZINE HCL 50 MG TAB PO SCH (05:40)
[2023-10-04] MEDS: METOPROLOL SUCCINATE (ER) 25 MG TAB.ER.24H PO SCH (05:40)
[2023-10-04] MEDS: LOSARTAN 50 MG TAB PO SCH (05:40)
[2023-10-04] MEDS: ASPIRIN 81 MG PO SCH (06:51)
[2023-10-04] MEDS: POTASSIUM CHLORIDE ER 20 MEQ TAB.ER PO STA (06:51)
[2023-10-04] MEDS: POTASSIUM CHLORIDE ER 20 MEQ TAB.ER PO SCH (08:01)
[2023-10-04] MEDS: INSULIN ASPART (NovoLOG) 100 UNIT/ML VIAL SQ SCH (08:09)
[2023-10-04] MEDS: IPRATROPIUM 0.5 MG/2.5 ML NEBU INHALATION SCH (08:39)
[2023-10-04] MEDS: SYMBICORT 160-4.5 MCG INHALER INHALATION PRN (08:39)
[2023-10-04 10:31] LABS: Glucose,Whole Blood 108 mg/dL (70-110)
[2023-10-04 12:09] LABS: Glucose,Whole Blood 104 mg/dL (70-110)
[2023-10-04 12:40] LABS: African American GFR (CKD) >90 (>60 ml/min/1.73 sqM); Anion Gap 10 mmol/L; Blood Urea Nitrogen 12 mg/dL (9-20); Calcium 9.2 mg/dL (8.4-10.2); Carbon Dioxide 24 mmol/L (22-30); Chloride 107 mmol/L (98-107); Glucose 94 mg/dL (74-99); Non-African American GFR(CKD) 89 (>60 ml/min/1.73 sqM); Potassium 3.5 mmol/L (3.5-5.1); Sodium 141 mmol/L (137-145)
[2023-10-04 13:10] LABS: HCT 45.1 % (39.0-53.0); Hypochromasia Marked; MCHC 33.2 g/dL (31.0-37.0); MCV 93.2 fL (80.0-100.0); Mean Platelet Volume 8.8; Platelet Count 198 k/uL (150-450); RBC 4.84 m/uL (4.30-5.90); RDW 14.3 % (11.5-15.5); WBC 7.5 k/uL (3.8-10.6)
--- NOTE | 2023-10-04 15:55 | P.PN ---
Subjective Progress Note Date: 10/04/23 Patient reports improvement in breathing today. Feels close to baseline. Gen: In NAD, non-toxic HEENT: normocephalic, atraumatic, hearing acuity is intant, mucous membranes moist CVS: perfusing all extremities well, 1+ pitting edema, Respiratory: symmetric chest expansion, no accessory muscle use, crackles GI: soft, NTTP, ND, : no suprapubic tenderness, no CVA tenderness MSK/Derm: no rashes, cyanosis Neuro: CN II-XII intact, no motor weakness, Psych: cooperative, euthymic mood, judgment and insight is intact Hospital course: Patient is a 60-year-old male with a PMH of CAD status post stents, systolic and diastolic CHF (EF 30 to 35% on echo from 04/26), COPD, type II DM, hypertension, hyperlipidemia, SANUJ who presents to the emergency room with complaints of shortness of breath. Chest x-ray in the emergency room revealed pulmonary vascular congestion with mild cardiomegaly. EKG revealed sinus rhythm with PVCs and APCs with a right bundle branch block and a left posterior fascicular block at 75 bpm as reviewed by me. Laboratory evaluation was remarkable for troponin of 0.082, WBC count 7.6, hemoglobin 14.5, sodium 140, potassium 3.4, CO2 21, BUN 11, creatinine 0.75, with proBNP 3000. Assessment: Acute systolic CHF exacerbation Elevated troponin, suspect type II TN in setting of ongoing CHF exacerbation, patient currently denying chest discomfort Hypokalemia Elevated total bilirubin Chronic conditions: Type II DM, COPD, hypertension, hyperlipidemia, SANJU Plan: Continue with Lasix 40 mg IV push every 12 hourly Trend troponin Intake and output Daily weights Fluid restriction Cardiology consulted Monitor electrolytes daily Cardiac monitoring Insulin sliding scale and blood glucose monitoring Resume patient's home medications including Toprol, losartan, hydralazine, Lipitor, and aspirin DVT prophylaxis: Lovenox subcu The patient is admitted with an anticipated greater than 2 midnight stay for evaluation of CHF CODE STATUS: Full Code Discussed with: Patient Anticipated discharge place: Home Objective - Vital Signs Vital signs: Vital Signs Temp 98.8 F 10/04/23 05:26 Pulse 89 10/04/23 15:48 Resp 20 10/04/23 13:49 BP 153/102 10/04/23 13:49 Pulse Ox 97 10/04/23 13:49 FiO2 Intake & Output 10/03/23 10/04/23 10/04/23 18:59 06:59 18:59 Output Total 2450 Balance -2450 Weight 145.15 kg Output: Urine 2450 - Labs CBC & Chem 7: 10/04/23 11:51 10/04/23 11:51 Labs: Abnormal Lab Results - Last 24 Hours (Table) 10/03/23 10/03/23 10/03/23 Range/Units 16:08 16:08 21:37 Potassium 3.4 L (3.5-5.1) mmol/L Chloride 110 H (98-107) mmol/L Carbon Dioxide 21 L (22-30) mmol/L Total Bilirubin 1.6 H (0.2-1.3) mg/dL Troponin I 0.082 H* 0.085 H* (0.000-0.034) ng/mL 10/04/23 Range/Units 01:06 Potassium (3.5-5.1) mmol/L Chloride (98-107) mmol/L Carbon Dioxide (22-30) mmol/L Total Bilirubin (0.2-1.3) mg/dL Troponin I 0.081 H* (0.000-0.034) ng/mL
[2023-10-04 18:02] LABS: Glucose,Whole Blood 89 mg/dL (70-110)
[2023-10-04 21:12] LABS: Glucose,Whole Blood 130 mg/dL (70-110)
[2023-10-04] MEDS: ATORVASTATIN 40 MG TAB PO SCH (21:45)
[2023-10-05 05:17] VITALS: TEMP 98.2
[2023-10-05 06:11] LABS: Glucose,Whole Blood 127 mg/dL (70-110)
[2023-10-05 08:38] VITALS: BP 128/80; RESP 16
--- NOTE | 2023-10-05 11:03 | P.DS ---
Providers Date of admission: 10/03/23 22:59 Expected date of discharge: 10/05/23 Attending physician: Seth Hernandez MD Consults: 10/03/23 20:47 Consult Physician Routine Consulting Provider: [facility] Consult Reason/Comments: CHF exacerbation Do you want consulting provider notified?: Yes Primary care physician: [facility] Hospital Course: Assessment: Acute systolic CHF exacerbation Elevated troponin, suspect type II WA in setting of ongoing CHF exacerbation, patient currently denying chest discomfort Hypokalemia Elevated total bilirubin Chronic conditions: Type II DM, COPD, hypertension, hyperlipidemia, SANJU Gen: In NAD, non-toxic HEENT: normocephalic, atraumatic, hearing acuity is intant, mucous membranes moist CVS: perfusing all extremities well, 1+ pitting edema, Respiratory: symmetric chest expansion, no accessory muscle use, crackles GI: soft, NTTP, ND, : no suprapubic tenderness, no CVA tenderness MSK/Derm: no rashes, cyanosis Neuro: CN II-XII intact, no motor weakness, Psych: cooperative, euthymic mood, judgment and insight is intact Hospital course: Patient is a 60-year-old male with a PMH of CAD status post stents, systolic and diastolic CHF (EF 30 to 35% on echo from 04/26), COPD, type II DM, hypertension, hyperlipidemia, SANJU who presents to the emergency room with complaints of shortness of breath. Chest x-ray in the emergency room revealed pulmonary vascular congestion with mild cardiomegaly. EKG revealed sinus rhythm with PVCs and APCs with a right bundle branch block and a left posterior fascicular block at 75 bpm as reviewed by me. Laboratory evaluation was remarkable for troponin of 0.082, WBC count 7.6, hemoglobin 14.5, sodium 140, potassium 3.4, CO2 21, BUN 11, creatinine 0.75, with proBNP 3000. Patient was admitted to the hospital and started on Lasix 40 mg IV twice daily. He had significant urine output and returned to his baseline function with no further dyspnea on exertion or oxygen requirement. Patient was subsequently discharged home with change of his Lasix dose from 20 mg as needed to 20 mg daily and counseled on the need for compliance. He should follow-up with his washer assembler as an outpatient for ongoing titration of medication as necessary. I spent 34 minutes coordinating this discharge Patient Condition at Discharge: Good Plan - Discharge Summary Discharge Rx Participant: No New Discharge Prescriptions: Continue Losartan Potassium 100 mg PO DAILY Budesonide/Glycopyr/Formoterol [Breztri Aerosphere Inhaler] 1 puff INHALATION RT-DAILY PRN PRN Reason: Shortness Of Breath Metoprolol Succinate (ER) [Toprol XL] 25 mg PO DAILY hydrALAZINE HCL [Apresoline] 100 mg PO TID #90 tablet Aspirin 81 mg PO DAILY #30 tab Atorvastatin [Lipitor] 40 mg PO HS Potassium Chloride ER [K-Dur 20] 20 meq PO DAILY Changed Furosemide [Lasix] 20 mg PO DAILY #30 tab Discharge Medication List Losartan Potassium 100 mg PO DAILY 04/04/21 [History] Budesonide/Glycopyr/Formoterol [Breztri Aerosphere Inhaler] 1 puff INHALATION RT-DAILY PRN 04/02/23 [History] Aspirin 81 mg PO DAILY #30 tab 04/06/23 [Rx] hydrALAZINE HCL [Apresoline] 100 mg PO TID #90 tablet 04/06/23 [Rx] Atorvastatin [Lipitor] 40 mg PO HS 06/27/23 [History] Metoprolol Succinate (ER) [Toprol XL] 25 mg PO DAILY 10/03/23 [History] Potassium Chloride ER [K-Dur 20] 20 meq PO DAILY 10/03/23 [History] Furosemide [Lasix] 20 mg PO DAILY #30 tab 10/05/23 [Rx] Follow up Appointment(s)/Referral(s): Bryce Astudillo MD [Primary Care Provider] - 1-2 days Discharge Disposition: HOME SELF-CARE
[2023-10-05 11:53] LABS: Glucose,Whole Blood 101 mg/dL (70-110)
[2023-10-05 11:59] VITALS: PULSE 80
== END 2023-10-05 13:23 | disposition home or self-care (01) ==
LOC: EC 14:27 → 3SCARD 22:59
PROVIDERS: ADMIT Internal Medicine; ATTEND Internal Medicine
DX: I11.0 Hypertensive heart disease with heart failure (principal); I50.43 Acute on chronic combined systolic (congestive) and diastolic (congestive) heart failure; E87.6 Hypokalemia; I25.10 Atherosclerotic heart disease of native coronary artery without angina pectoris; I45.2 Bifascicular block; I49.3 Ventricular premature depolarization; I49.1 Atrial premature depolarization; E11.51 Type 2 diabetes mellitus with diabetic peripheral angiopathy without gangrene; E78.5 Hyperlipidemia, unspecified; G47.33 Obstructive sleep apnea (adult) (pediatric); J44.9 Chronic obstructive pulmonary disease, unspecified; R79.89 Other specified abnormal findings of blood chemistry; R17 Unspecified jaundice; Z95.5 Presence of coronary angioplasty implant and graft; Z86.16 Personal history of COVID-19
CPT/HCPCS: 96376 ×3; 96365; 96366 ×2; 96375; 99285; 36415; 94640 ×4; 93005; 83880; 80053; 80048; 83735 ×2; 84484 ×2; 85025; 85027; 85610; 85730; 83036; 71046; G0378 ×3; J1940 ×2; J3475

== ENCOUNTER 2024-01-30 18:00 | Inpatient (IN) | payer MEDICARE ==
--- NOTE | 2024-01-30 19:05 | ED ---
General Adult HPI - General Chief complaint: Neuro Symptoms/Deficit Stated complaint: AMARILYS Time Seen by Provider: 01/30/24 18:08 Source: EMS Mode of arrival: EMS Limitations: physical limitation - History of Present Illness Initial comments: Dictation was produced using [employer] dictation software. please excuse any grammatical, word or spelling errors. Chief Complaint: 68-year-old male presents emergency department dyspnea History of Present Illness: Patient 60-year-old obese male with multiple comorbidities presents emergency department with dyspnea. Patient has been having symptoms for last 2 weeks that escalated today. He has been feeling wea k. Daughter at the bedside tried to give her albuterol inhaler to him but did not help. Patient Nuys any fever. He apparently has chronic history of thoracic aneurysm that needs repair. Denies any pain complaints. Denies any fever, chills or night sweats. The ROS documented in this emergency department record has been reviewed and confirmed by me. Those systems with pertinent positive or negative responses have been documented in the HPI. All other systems are other negative and/or noncontributory. - Related Data Home Medications Medication Instructions Recorded Confirmed Losartan Potassium 100 mg PO DAILY 04/04/21 01/31/24 Budesonide/Glycopyr/Formoterol 1 puff INHALATION RT-DAILY PRN 04/02/23 01/31/24 [Breztri Aerosphere Inhaler] Atorvastatin [Lipitor] 40 mg PO DAILY 06/27/23 01/31/24 Metoprolol Succinate (ER) [Toprol 25 mg PO DAILY 10/03/23 01/31/24 XL] Potassium Chloride ER [K-Dur 20] 20 meq PO DAILY 10/03/23 01/31/24 buPROPion XL [Wellbutrin XL] 150 mg PO DAILY 01/31/24 01/31/24 hydrALAZINE HCL [Apresoline] 100 mg PO TID-W/MEALS 01/31/24 01/31/24 Previous Rx's Medication Instructions Recorded Aspirin 81 mg PO DAILY #30 tab 04/06/23 Furosemide [Lasix] 20 mg PO DAILY #30 tab 10/05/23 Allergies Allergy/AdvReac Type Severity Reaction Status Date / Time Penicillins Allergy Severe Swelling Verified 01/31/24 08:34 amlodipine [From Lotrel] Allergy ITCHING/SWE Verified 01/31/24 08:34 LLING benazepril [From Lotrel] Allergy ITCHING/SWE Verified 01/31/24 08:34 LLING Review of Systems ROS Statement: Those systems with pertinent positive or pertinent negative responses have been documented in the HPI. ROS Other: All systems not noted in ROS Statement are negative. Past Medical History Past Medical History: Coronary Artery Disease (CAD), Cancer, Heart Failure, Diabetes Mellitus, Hypertension, Myocardial Infarction (MA), Osteoarthritis (OA), Prostate Disorder, Sleep Apnea/CPAP/BIPAP, Vascular Disorder Additional Past Medical History / Comment(s): Hx MA X4. Hx Covid 02/20, had mononucal antibodies (with reaction), still has residual vertigo, aches and pains and brain fog. Neuropathy bilateral feet. CPAP use. Hx right ear basal cell skin cancer(removed). Slight BPH, elevate PSA. PVD. Thoracic Aortic Aneurysm. Last Myocardial Infarction Date:: 08/11/19 History of Any Multi-Drug Resistant Organisms: None Reported Past Surgical History: Cholecystectomy, Heart Catheterization, Heart Catheteriz ation With Stent, Joint Replacement, Orthopedic Surgery Additional Past Surgical History / Comment(s): PCI with a total of 7 stents, bilateral knee ACLs, total left knee arthroplasty, right knee arthroscopy, bilateral surgery on elbows, right ear cancer/reconstructive surgery, all teeth removed. Past Anesthesia/Blood Transfusion Reactions: No Reported Reaction Additional Past Anesthesia/Blood Transfusion Reaction / Comment(s): Couldn't urinate after gallbladder surgery, had to be straight cathed X1. Date of Last Stent Placement:: 2017 Past Psychological History: No Psychological Hx Reported Smoking Status: Former smoker Past Alcohol Use History: Rare Past Drug Use History: None Reported - Past Family History Father Family Medical History: Dementia Additional Family Medical History / Comment(s): Father is . Mother Family Medical History: Cancer Additional Family Medical History / Comment(s): MOTHER OF CANCER-FOUND IN LIVER-PRIMARY NEVER KNOWN. General Exam - General Exam Comments Initial Comments: PHYSICAL EXAM: General Impression: Alert and oriented x3, not in acute distress HEENT: Normocephalic atraumatic, extra-ocular movements intact, pupils equal and reactive to light bilaterally, mucous membranes moist. Cardiovascular: Heart regular rate and rhythm Chest: Able to complete full sentences, no retractions, no tachypnea Abdomen: abdomen soft, non-tender, non-distended, no organomegaly Musculoskeletal: Pulses present and equal in all extremities, no peripheral edema Motor: no focal deficits noted Neurological: CN II-XII grossly intact, no focal motor or sensory deficits noted Skin: Intact with no visualized rashes Psych: Normal affect and mood Limitations: physical limitation Course Vital Signs 01/30/24 01/30/24 01/30/24 18:05 19:35 20:34 Temperature 99.1 F Pulse Rate 97 Respiratory 16 38 H Rate Blood Pressure 220/121 O2 Sat by Pulse 97 Oximetry 01/30/24 01/30/24 01/30/24 20:40 20:50 21:00 Temperature Pulse Rate 87 90 90 Respiratory 12 12 19 Rate Blood Pressure 174/111 169/110 170/105 O2 Sat by Pulse Oximetry 01/30/24 01/30/24 01/30/24 21:10 21:20 21:30 Temperature Pulse Rate 89 89 93 Respiratory 21 30 H 52 H Rate Blood Pressure 164/113 175/123 176/118 O2 Sat by Pulse Oximetry 01/30/24 01/30/24 01/30/24 21:40 21:50 22:00 Temperature Pulse Rate 89 89 90 Respiratory 30 H 22 29 H Rate Blood Pressure 162/114 174/116 O2 Sat by Pulse Oximetry 01/30/24 01/30/24 01/30/24 22:30 23:00 23:30 Temperature Pulse Rate 89 70 Respiratory 28 H 29 H Rate Blood Pressure 159/109 180/121 166/118 O2 Sat by Pulse Oximetry 01/30/24 01/31/24 01/31/24 23:35 00:30 01:00 Temperature 98.7 F Pulse Rate 75 Respiratory 20 Rate Blood Pressure 151/112 170/116 176/117 O2 Sat by Pulse 93 L 94 L 90 L Oximetry 01/31/24 01/31/24 01/31/24 01:30 02:15 03:00 Temperature Pulse Rate 89 77 Respiratory Rate Blood Pressure 150/114 151/103 168/74 O2 Sat by Pulse 91 L 96 99 Oximetry 01/31/24 01/31/24 01/31/24 04:00 04:40 05:37 Temperature Pulse Rate 90 90 65 Respiratory 22 Rate Blood Pressure 172/91 156/113 155/95 O2 Sat by Pulse 95 96 98 Oximetry 01/31/24 01/31/24 01/31/24 08:54 09:28 11:39 Temperature Pulse Rate 91 90 66 Respiratory 20 22 Rate Blood Pressure 136/100 132/97 O2 Sat by Pulse 94 L 95 Oximetry 01/31/24 01/31/24 01/31/24 11:44 13:11 15:54 Temperature Pulse Rate 68 66 67 Respiratory 18 18 Rate Blood Pressure 157/98 150/100 O2 Sat by Pulse 94 L 97 Oximetry 01/31/24 17:13 Temperature Pulse Rate 66 Respiratory 18 Rate Blood Pressure 154/76 O2 Sat by Pulse 95 Oximetry Medical Decision Making - Medical Decision Making Was pt. sent in by a medical professional or institution (, PA, SHIRT MARKER, urgent care, hospital, or shelter...) When possible be specific @ -No Did you speak to anyone other than the patient for history (EMS, parent, family, police, friend...)? What history was obtained from this source @ -Some history obtained from family as described above Did you review nursing and triage notes (agree or disagree)? Why? @ -I reviewed and agree with nursing and triage notes Were old charts reviewed (outside hosp., previous admission, EMS record, old EKG, old radiological studies, urgent care reports/EKG's, shelter records)? Report findings @ -No old charts were reviewed Differential Diagnosis (chest pain, altered mental status, abdominal pain women, abdominal pain men, vaginal bleeding, musculoskeletal, weakness, fever, dyspnea, syncope, headache, dizziness, GI bleed, back pain, seizure, CVA, palpatations, mental health)? @ -Differential Dyspnea: Coronary syndrome, arrhythmia, tamponade, asthma, COPD, pulmonary embolism, pneumonia, pneumothorax, pulmonary effusion, anaphylaxis, diabetic ketoacidosis, flailed chest, pulmonary contusion, diaphragmatic rupture, anemia, neuromuscular, this is not meant to be an all-inclusive list. EKG interpreted by me (3pts min.). @ -My EKG interpretation: Ventricular rate 92, sinus rhythm,. 118, QRS 164, QTc 450, right bundle branch block. No CT prolongation, no QTC prolongation, no ST or T-wave changes noted. Overall, this EKG is unremarkable X-rays interpreted by me (1pt min.). @ -Chest x-ray shows heart failure CT interpreted by me (1pt min.). @ -Pending CT angiography of the chest U/S interpreted by me (1pt. min.). @ -None done What testing was considered but not performed or refused? (CT, X-rays, U/S, labs)? Why? @ -None What meds were considered but not given or refused? Why? @ -None Was smoking cessation discussed for >3mins.? @ -No Were there social determinants of health that impacted care today? How? (Homelessness, low income, unemployed, alcoholism, drug addiction, transportation, low edu. Level, literacy, decrease access to med. care, shelter, rehab)? @ -No Was there de-escalation of care discussed even if they declined (Discuss DNR or withdrawal of care, Hospice)? DNR status @ -No What co-morbidities impacted this encounter? (DM, HTN, Smoking, COPD, CAD, Ca ncer, CVA, ARF, Chemo, Hep., AIDS, mental health diagnosis, sleep apnea, morbid obesity)? @ -Obesity, hypertension Was patient admitted / discharged? Hospital course, mention meds given and route, prescriptions, significant lab abnormalities, going to OR and other pertinent info. @ -60-year-old male presents to the emergency department for worsening dyspnea and worsening weakness. Patient has multiple comorbidities. States he has history of hypertension and is compliant with medications. Does report history of heart failure. Vital signs upon arrival shows hypertension patient does not appear to be overwhelmingly dyspneic at the bedside. Lungs did not show any obvious crackles. Laboratory evaluation obtained. CBC is unremarkable. D- dimer is 1.53. BNP is 3850. Troponin 0.051. Viral testing negative. X-ray suggest heart failure. Pending CT angiography of the chest. Patient with high blood pressure and evidence of CHF on x-ray is placed on nitroglycerin temporarily until approximately 25% MAP reduction was reached. Patient reevaluated bedside 10:52 PM found to be in stable medical condition. Did you discuss the management of the patient with other professionals (tabitha montero ibony Vides, PA, SHIRT MARKER, lab, RT, psych nurse, social human services assistants, gas specialist, teacher, agricultural loan officer, correctional case records supervisor)? Give summary @ -Case discussed with hospitalist for admission. Patient given 40 mg of IV Lasix. Was critical care preformed (if so, how long)? @ -Yes, 33 minutes for management of hypertensive emergency Undiagnosed new problem with uncertain prognosis? @ -No Drug Therapy requiring intensive monitoring for toxicity (Heparin, Nitro, Insulin, Cardizem)? @ -No Were any procedures done? @ -No Diagnosis/symptom? Acute, or Chronic, or Acute on Chronic? Uncomplicated (without systemic symptoms) or Complicated (systemic symptoms)? @ -Hypertensive emergency, heart failure Side effects of treatment? @ -No Exacerbation, Progression, or Severe Exacerbation? @ -No Poses a threat to life or bodily function? How? (Chest pain, USA, MA, pneumonia, PE, COPD, DKA, ARF, appy, cholecystitis, CVA, Diverticulitis, Homicidal, Suicidal, threat to staff... and all critical care pts) @ -yes - Lab Data Result diagrams: 02/03/24 09:53 02/03/24 09:53 Lab Results 01/30/24 01/30/24 01/30/24 Range/Units 19:05 19:32 19:32 WBC (3.8-10.6) k/uL RBC (4.30-5.90) m/uL Hgb (13.0-17.5) gm/dL Hct (39.0-53.0) % MCV (80.0-100.0) fL MCH (25.0-35.0) pg MCHC (31.0-37.0) g/dL RDW (11.5-15.5) % Plt Count (150-450) k/uL MPV Neutrophils % % Lymphocytes % % Monocytes % % Eosinophils % % Basophils % % Neutrophils # (1.3-7.7) k/uL Lymphocytes # (1.0-4.8) k/uL Monocytes # (0-1.0) k/uL Eosinophils # (0-0.7) k/uL Basophils # (0-0.2) k/uL Hypochromasia Anisocytosis PT (10.0-12.5) sec INR (<1.2) APTT (22.0-30.0) sec D-Dimer (<0.60) mg/L FEU Sodium 141 (137-145) mmol/L Potassium 3.5 (3.5-5.1) mmol/L Chloride 109 H (98-107) mmol/L Carbon Dioxide 24 (22-30) mmol/L Anion Gap 8 mmol/L BUN 13 (9-20) mg/dL Creatinine 0.97 (0.66-1.25) mg/dL Est GFR (CKD-EPI)AfAm >90 (>60 ml/min/1.73 sqM) Est GFR (CKD-EPI)NonAf 81 (>60 ml/min/1.73 sqM) Glucose 104 H (74-99) mg/dL Plasma Lactic Acid Mike (0.7-2.0) mmol/L Calcium 9.4 (8.4-10.2) mg/dL Magnesium 2.0 (1.6-2.3) mg/dL Total Bilirubin 1.9 H (0.2-1.3) mg/dL AST 19 (17-59) U/L ALT 17 (4-49) U/L Alkaline Phosphatase 97 (38-126) U/L Troponin I 0.051 H* (0.000-0.034) ng/mL NT-Pro-B Natriuret Pep 3850 pg/mL Total Protein 7.3 (6.3-8.2) g/dL Albumin 4.4 (3.5-5.0) g/dL Influenza Type A (PCR) Not Detected (Not Detectd) Influenza Type B (PCR) Not Detected (Not Detectd) RSV (PCR) Not Detected (Not Detectd) SARS-CoV-2 (PCR) Not Detected (Not Detectd) 01/30/24 01/30/24 01/30/24 Range/Units 19:35 22:01 22:01 WBC 9.6 (3.8-10.6) k/uL RBC 4.88 (4.30-5.90) m/uL Hgb 14.0 (13.0-17.5) gm/dL Hct 44.1 (39.0-53.0) % MCV 90.4 (80.0-100.0) fL MCH 28.8 (25.0-35.0) pg MCHC 31.9 (31.0-37.0) g/dL RDW 16.1 H (11.5-15.5) % Plt Count 290 (150-450) k/uL MPV 7.5 Neutrophils % 81 % Lymphocytes % 11 % Monocytes % 5 % Eosinophils % 2 % Basophils % 1 % Neutrophils # 7.8 H (1.3-7.7) k/uL Lymphocytes # 1.1 (1.0-4.8) k/uL Monocytes # 0.4 (0-1.0) k/uL Eosinophils # 0.2 (0-0.7) k/uL Basophils # 0.1 (0-0.2) k/uL Hypochromasia Slight Anisocytosis Slight PT 11.1 (10.0-12.5) sec INR 1.0 (<1.2) APTT 24.4 (22.0-30.0) sec D-Dimer 1.53 H (<0.60) mg/L FEU Sodium (137-145) mmol/L Potassium (3.5-5.1) mmol/L Chloride (98-107) mmol/L Carbon Dioxide (22-30) mmol/L Anion Gap mmol/L BUN (9-20) mg/dL Creatinine (0.66-1.25) mg/dL Est GFR (CKD-EPI)AfAm (>60 ml/min/1.73 sqM) Est GFR (CKD-EPI)NonAf (>60 ml/min/1.73 sqM) Glucose (74-99) mg/dL Plasma Lactic Acid Mike 1.9 (0.7-2.0) mmol/L Calcium (8.4-10.2) mg/dL Magnesium (1.6-2.3) mg/dL Total Bilirubin (0.2-1.3) mg/dL AST (17-59) U/L ALT (4-49) U/L Alkaline Phosphatase (38-126) U/L Troponin I (0.000-0.034) ng/mL NT-Pro-B Natriuret Pep pg/mL Total Protein (6.3-8.2) g/dL Albumin (3.5-5.0) g/dL Influenza Type A (PCR) (Not Detectd) Influenza Type B (PCR) (Not Detectd) RSV (PCR) (Not Detectd) SARS-CoV-2 (PCR) (Not Detectd) Disposition Clinical Impression: Heart failure Disposition: ADMITTED IP TO THIS HOSP Condition: Serious
--- NOTE | 2024-01-30 19:58 | XR ---
EXAMINATION TYPE: XR chest 2V DATE OF EXAM: 01/30/2024 7:45 PM COMPARISON: 10/03/2023 CLINICAL INDICATION: Male, 68 years old with shortness of breath, history of dyspnea, , TECHNIQUE: AP and lateral views FINDINGS: Heart mildly enlarged. Diffuse interstitial opacity. Left base underpenetrated and not well assessed though prominent posterior basilar opacity is noted on the lateral view. IMPRESSION: Mild cardiomegaly and interstitial densities. Prominent posterior basilar opacity on the lateral view probably representing pleural effusions. Consider CHF with pulmonary vascular congestion. Pneumonia can be excluded on a clinical basis. [facility], , 01/30/2024 7:56 PM
[2024-01-30 20:20] LABS: ALT 17 U/L (4-49); AST 19 U/L (17-59); African American GFR (CKD) >90 (>60 ml/min/1.73 sqM); Albumin 4.4 g/dL (3.5-5.0); Alkaline Phosphatase 97 U/L (38-126); Anion Gap 8 mmol/L; Blood Urea Nitrogen 13 mg/dL (9-20); Calcium 9.4 mg/dL (8.4-10.2); Carbon Dioxide 24 mmol/L (22-30); Chloride 109 mmol/L (98-107); Glucose 104 mg/dL (74-99); Non-African American GFR(CKD) 81 (>60 ml/min/1.73 sqM); Potassium 3.5 mmol/L (3.5-5.1); Sodium 141 mmol/L (137-145); Total Bilirubin 1.9 mg/dL (0.2-1.3); Total Protein 7.3 g/dL (6.3-8.2)
[2024-01-30] MEDS: NITROGLYCERIN SL TABS 0.4 MG TAB SUBLINGUAL STA (20:23)
[2024-01-30 20:29] LABS: NT-Pro-B-Type Natriuretic Pept 3850 pg/mL
[2024-01-30] MEDS: NITROGLYCERIN-D5W PMX 50 MG in DEXTROSE/WATER 1 250ML.BAG IV ONE (20:35)
[2024-01-30] MEDS ORDERED: NALOXONE 0.4 MG/ML 1 ML VIAL IV PRN (22:03)
[2024-01-30 22:14] LABS: Anisocytosis Slight; Basophils # (A) 0.1 k/uL (0-0.2); Basophils % (A) 1 %; Eosinophils # (A) 0.2 k/uL (0-0.7); Eosinophils % (A) 2 %; HCT 44.1 % (39.0-53.0); Hypochromasia Slight; Lymphocytes # (A) 1.1 k/uL (1.0-4.8); Lymphocytes % (A) 11 %; MCH 28.8 pg (25.0-35.0); MCHC 31.9 g/dL (31.0-37.0); MCV 90.4 fL (80.0-100.0); Mean Platelet Volume 7.5; Monocytes # (A) 0.4 k/uL (0-1.0); Monocytes % (A) 5 %; Neutrophils # (A) 7.8 k/uL (1.3-7.7); Neutrophils % (A) 81 %; Platelet Count 290 k/uL (150-450); RBC 4.88 m/uL (4.30-5.90); RDW 16.1 % (11.5-15.5); WBC 9.6 k/uL (3.8-10.6)
[2024-01-30 22:22] LABS: Partial Thromboplastin Time 24.4 sec (22.0-30.0); Prothrombin Time 11.1 sec (10.0-12.5)
--- NOTE | 2024-01-30 23:46 | CT ---
ADDENDUM - Added by Brian Dominguez MD on 01/30/2024 11:57 PM (-05:00) Addendum: RV to LV ratio less than 1. No evidence of right heart strain. EXAM: CT Angiography Chest With Intravenous Contrast CLINICAL HISTORY: ITS.REASON CT Reason: positive d dimer TECHNIQUE: Axial computed tomographic angiography images of the chest with intravenous contrast. CTDI is 41 mGy and DLP is 1065.2 mGy-cm. This CT exam was performed using one or more of the following dose reduction techniques: automated exposure control, adjustment of the mA and/or kV according to patient size, and/or use of iterative reconstruction technique. MIP reconstructed images were created and reviewed. COMPARISON: No relevant prior studies available. FINDINGS: Pulmonary arteries: Acute segmental PE in the right upper lobe. Aorta: Aneurysmal ascending thoracic aorta up to 5.4 cm. No dissection. Lungs: Mild interstitial edema. Pleural space: Small bilateral pleural effusions. Heart: Unremarkable. Bones/joints: No acute fracture. Soft tissues: Unremarkable. Lymph nodes: Unremarkable. IMPRESSION: 1. Acute segmental PE in the right upper lobe. 2. Aneurysmal ascending thoracic aorta up to 5.4 cm. No dissection. 3. Small bilateral pleural effusions. 4. Mild interstitial edema. <MYCVCSECTION> Communications: 01/30/24 23:55 Call Doctor Regarding Pulmonary Embolism, called Dr. Carrington on 01/29 23:56 (-05:00)
--- NOTE | 2024-01-30 23:54 | P.HPIM ---
History of Present Illness H&P Date: 01/30/24 Chief Complaint: Shortness of breath and weakness History of present illness; 68-year-old male with a PMH of CAD status post stents, systolic CHF (EF 30 to 35% on echo from 04/26), type II DM, hypertension, hyperlipidemia, SANJU who presents to the emergency room with complaints of shortness of breath. States for the last 2 weeks she has had increased shortness of breath that gets worse on exertion. Of note he was diagnosed with a thoracic aortic aneurysm 2 years ago and was following with a CT surgeon, but per patient "the surgeon told me I did not need to have an operation ". As the patient is seeing this, his looks at me and shakes her head no in disagreement. Imaging: - EKG done in the ER showed heart rate of 92 bpm, sinus rhythm with occasional ventricular premature complexes with occasional supraventricular premature complexes, right bundle branch block, and QTc 450. - ER CXR: Mild cardiomegaly and interstitial densities. Prominent posterior basilar opacity on the lateral view probably representing pleural effusions. Consider CHF pulmonary vascular congestion. REVIEW OF SYSTEMS: As stated above in HPI. The rest of the 14-point review of systems is negative. PHYSICAL EXAMINATION: GENERAL: The patient is alert and oriented x3, not in any acute distress. Well developed, well nourished. HEENT: Pupils are round and equally reacting to light. EOMI. No scleral icterus. No conjunctival pallor. Normocephalic, atraumatic. CARDIOVASCULAR: S1 and S2 present. No murmurs, rubs, or gallops. PULMONARY: Chest is clear to auscultation b/l, no wheezing or crackles. ABDOMEN: Soft, nontender, nondistended, normoactive bowel sounds. No palpable organomegaly. MUSCULOSKELETAL: No joint swelling or deformity. EXTREMITIES: No cyanosis, clubbing, or pedal edema. NEUROLOGICAL: Gross neurological examination did not reveal any focal deficits. SKIN: No rashes. Assessment and Plan 68-year-old male with a PMH of CAD status post stents, systolic CHF (EF 30 to 35% on echo from 04/26), type II DM, hypertension, hyperlipidemia, history of unrepaired thoracic aortic aneurysm, and SANJU who presents to the emergency room with complaints of shortness of breath. #Shortness of breath: Likely secondary to right apical PE versus/and CHF exacerbation #History of systolic CHF #SIRS criteria with no definitive source -Elevated BNP 3850 and troponin 0.051 -Continue to trend troponin -CTA chest showed acute segmental PE in the right upper lobe, aneurysmal ascending thoracic aorta up to 5.4 cm. No dissection. Small bilateral pleural effusions. Mild interstitial edema. -Started on heparin drip -Negative influenza type A and B, RSV, and COVID -Cardiac monitoring -O2 NC as needed -Cardiology consulted -Last echo 04/26 with a EF of 30 to 35%, ordered new echo -Ordered Pro-Luis -Pneumonia less likely as has no white count, or shift -No antibiotics at this time, continue to assess during hospital course #Hypertensive urgency -Initial blood pressure on arrival 220/121, MAP 154, now 162/114 and MAP 136 -Goal reduction in MAP by 25 to 30% in first 24 to 48 hours -Was started on nitroglycerin drip 5 mcg/min in the ED continue home meds in the morning Chronic Conditions: #Hypertension -Continue home medications once reconciled by pharmacy #Hyperlipidemia -Continue home medications once reconciled by pharmacy #Type II DM -Hold home medications -Ordered sliding scale and Accu-Cheks #CAD status post stents -Continue home medications Aspirin and statin F: Fluid restrict to 2 L E: None N: Heart healthy diet DVT ppx: Heparin drip for PE GI ppx: Protonix 40 mg p.o. daily CODE STATUS: Full code Dispo: Pending clinical course Silvana Amaya MD PGY-1 FM Dictation was produced using [employer] dictation software. please excuse any gr ammatical, word or spelling errors. I have seen and evaluated the patient today. I Discussed the case with the resident and agree with the resident's findings I edited the assessment and plan as necessary as documented in the resident's note. Past Medical History Past Medical History: Coronary Artery Disease (CAD), Cancer, Heart Failure, Diabetes Mellitus, Hypertension, Myocardial Infarction ([place]), Osteoarthritis (OA), Prostate Disorder, Sleep Apnea/CPAP/BIPAP, Vascular Disorder Additional Past Medical History / Comment(s): Hx [place] X4. Hx Covid 02/20, had mononucal antibodies (with reaction), still has residual vertigo, aches and pains and brain fog. Neuropathy bilateral feet. CPAP use. Hx right ear basal cell skin cancer(removed). Slight BPH, elevate PSA. PVD. Thoracic Aortic Aneurysm. Last Myocardial Infarction Date:: 08/11/19 History of Any Multi-Drug Resistant Organisms: None Reported Past Surgical History: Cholecystectomy, Heart Catheterization, Heart Catheterization With Stent, Joint Replacement, Orthopedic Surgery Additional Past Surgical History / Comment(s): PCI with a total of 7 stents, bilateral knee ACLs, total left knee arthroplasty, right knee arthroscopy, bilateral surgery on elbows, right ear cancer/reconstructive surgery, all teeth removed. Past Anesthesia/Blood Transfusion Reactions: No Reported Reaction Additional Past Anesthesia/Blood Transfusion Reaction / Comment(s): Couldn't urinate after gallbladder surgery, had to be straight cathed X1. Date of Last Stent Placement:: 2017 Past Psychological History: No Psychological Hx Reported Smoking Status: Former smoker Past Alcohol Use History: Rare Past Drug Use History: None Reported - Past Family History Father Family Medical History: Dementia Additional Family Medical History / Comment(s): Father is . Mother Family Medical History: Cancer Additional Family Medical History / Comment(s): MOTHER OF CANCER-FOUND IN LIVER-PRIMARY NEVER KNOWN. Medications and Allergies Home Medications Medication Instructions Recorded Confirmed Type Losartan Potassium 100 mg PO DAILY 04/04/21 10/03/23 History Budesonide/Glycopyr/Formoterol 1 puff INHALATION RT-DAILY PRN 04/02/23 10/03/23 History [Breztri Aerosphere Inhaler] Aspirin 81 mg PO DAILY #30 tab 04/06/23 10/03/23 Rx hydrALAZINE HCL [Apresoline] 100 mg PO TID #90 tablet 04/06/23 10/03/23 Rx Atorvastatin [Lipitor] 40 mg PO HS 06/27/23 10/03/23 History Metoprolol Succinate (ER) [Toprol 25 mg PO DAILY 10/03/23 10/03/23 History XL] Potassium Chloride ER [K-Dur 20] 20 meq PO DAILY 10/03/23 10/03/23 History Furosemide [Lasix] 20 mg PO DAILY #30 tab 10/05/23 Rx Allergies Allergy/AdvReac Type Severity Reaction Status Date / Time Penicillins Allergy Severe Swelling Verified 01/30/24 18:14 amlodipine [From Lotrel] Allergy ITCHING/SWE Verified 01/30/24 18:14 LLING benazepril [From Lotrel] Allergy ITCHING/SWE Verified 01/30/24 18:14 LLING Physical Exam Vitals: Vital Signs Temp Pulse Resp BP Pulse Ox 01/30/24 21:50 89 22 01/30/24 21:40 89 30 H 162/114 01/30/24 21:30 93 52 H 176/118 01/30/24 21:20 89 30 H 175/123 01/30/24 21:10 89 21 164/113 01/30/24 21:00 90 19 170/105 01/30/24 20:50 90 12 169/110 01/30/24 20:40 87 12 174/111 01/30/24 20:34 38 H 01/30/24 19:35 220/121 01/30/24 18:05 99.1 F 97 16 97 Intake and Output 01/30/24 01/30/24 01/30/24 06:59 14:59 22:59 Intake Total 5.55 Balance 5.55 Intake: Intake, IV Titration 5.55 Amount Nitroglycerin-D5w Pmx 50 5.55 mg In Dextrose/Water 1 250ml.bag @ 5 MCG/MIN 1.5 mls/hr IV .Q24H ONE Rx#: [id number] Other: Weight 142.882 kg Results CBC & Chem 7: 01/30/24 22:01 01/30/24 19:32 Labs: Abnormal Lab Results - Last 24 Hours (Table) 01/30/24 01/30/24 01/30/24 Range/Units 19:32 19:32 22:01 RDW (11.5-15.5) % Neutrophils # (1.3-7.7) k/uL D-Dimer 1.53 H (<0.60) mg/L FEU Chloride 109 H (98-107) mmol/L Glucose 104 H (74-99) mg/dL Total Bilirubin 1.9 H (0.2-1.3) mg/dL Troponin I 0.051 H* (0.000-0.034) ng/mL 01/30/24 Range/Units 22:01 RDW 16.1 H (11.5-15.5) % Neutrophils # 7.8 H (1.3-7.7) k/uL D-Dimer (<0.60) mg/L FEU Chloride (98-107) mmol/L Glucose (74-99) mg/dL Total Bilirubin (0.2-1.3) mg/dL Troponin I (0.000-0.034) ng/mL
[2024-01-31] MEDS: SODIUM CHLORIDE 0.9% 1,000 ML IV SCH
[2024-01-31] MEDS: FUROSEMIDE 10 MG/ML 4 ML VIAL IV STA (00:03)
[2024-01-31] MEDS: HEPARIN SOD,PORK IN 0.45% NACL 25,000 UNIT in 0.45% NACL 1 250ML.BAG IV SCH (01:15)
[2024-01-31] MEDS: HEPARIN SODIUM 1,000 UN/ML (10ML VL) IV ONE (01:17)
--- NOTE | 2024-01-31 04:01 | CT ---
EXAM: CT Head Without Intravenous Contrast CLINICAL HISTORY: ITS.REASON CT Reason: Heparin TECHNIQUE: Axial computed tomography images of the head/brain without intravenous contrast. CTDI is 49 mGy and DLP is 1239 mGy-cm. This CT exam was performed using one or more of the following dose reduction techniques: automated exposure control, adjustment of the mA and/or kV according to patient size, and/or use of iterative reconstruction technique. COMPARISON: No relevant prior studies available. FINDINGS: Brain: No hemorrhage or mass effect. Chronic ischemic changes Ventricles: No hydrocephalus. Bones/joints: Unremarkable. Soft tissues: 4.4 cm right parotid mass. Sinuses: No air fluid level. Mastoid air cells: Clear. IMPRESSION: No acute hemorrhage, hydrocephalus, or mass effect. 4.4 cm right parotid mass. Recommend CT of the neck.
[2024-01-31] MEDS ORDERED: DEXTROSE 50% SYRINGE 50 ML IVP PRN ×2 (07:07)
[2024-01-31] MEDS: HEPARIN SODIUM 1,000 UN/ML (10ML VL) IV PRN (07:27)
[2024-01-31 08:13] LABS: Anisocytosis Slight; Basophils % (A) 0 %; Eosinophils # (A) 0.2 k/uL (0-0.7); Eosinophils % (A) 2 %; HCT 43.4 % (39.0-53.0); HGB 14.1 gm/dL (13.0-17.5); Hypochromasia Slight; Lymphocytes # (A) 1.9 k/uL (1.0-4.8); Lymphocytes % (A) 22 %; MCH 28.7 pg (25.0-35.0); MCHC 32.4 g/dL (31.0-37.0); MCV 88.8 fL (80.0-100.0); Mean Platelet Volume 8.2; Monocytes # (A) 0.5 k/uL (0-1.0); Monocytes % (A) 6 %; Neutrophils # (A) 5.7 k/uL (1.3-7.7); Neutrophils % (A) 68 %; Platelet Count 260 k/uL (150-450); RBC 4.89 m/uL (4.30-5.90); RDW 16.2 % (11.5-15.5); WBC 8.4 k/uL (3.8-10.6)
[2024-01-31 08:26] LABS: African American GFR (CKD) >90 (>60 ml/min/1.73 sqM); Anion Gap 9 mmol/L; Blood Urea Nitrogen 12 mg/dL (9-20); Calcium 9.1 mg/dL (8.4-10.2); Carbon Dioxide 24 mmol/L (22-30); Chloride 106 mmol/L (98-107); Glucose 103 mg/dL (74-99); Non-African American GFR(CKD) 82 (>60 ml/min/1.73 sqM); Potassium 3.5 mmol/L (3.5-5.1); Sodium 139 mmol/L (137-145)
[2024-01-31] MEDS: ASPIRIN 81 MG PO SCH (09:29)
[2024-01-31] MEDS: hydrALAZINE HCL 50 MG TAB PO SCH (09:29)
[2024-01-31] MEDS: METOPROLOL SUCCINATE (ER) 25 MG TAB.ER.24H PO SCH (09:29)
[2024-01-31] MEDS: LOSARTAN 50 MG TAB PO SCH (09:29)
[2024-01-31] MEDS: FUROSEMIDE 40 MG TAB PO SCH (09:29)
--- NOTE | 2024-01-31 10:31 | P.CRDCN ---
History of Present Illness History of present illness: HISTORY OF PRESENT ILLNESS: This is a 68-year-old male with a past medical history significant for coronary artery disease with previous stenting, congestive heart failure, hypertension, hyperlipidemia, obstructive sleep apnea, cardiomyopathy with ejection fraction 30 to 35%, and thoracic aortic aneurysm. Patient follows in the office with Dr. Aguillon. We have been asked to see the patient in consultation for congestive heart failure. Patient examined at the bedside in the emergency room. Patient states he presented to the hospital with a chief complaint of shortness of breath. Patient states he has been feeling short of breath for the past week and a half. He reports some dizziness as well. Denies any chest pain or pressure. He does report having chills yesterday but denies having a fever. Patient states he did fall a couple weeks ago and has been less active since michael t time. He reports worsening lower extremity weakness. Blood pressures were initially elevated when he came to the hospital with systolics tween 150 and 190. Blood pressure at the time of examination 111/86. The patient was found to have pulmonary embolism was started on IV heparin. He denies any known history of PE or DVT. He denies any prolonged travel. He does report he has been less mobile the past few weeks after falling. DIAGNOSTICS: - EKG reveals sinus mechanism with right bundle branch block. - Chest xray mild cardiomegaly and interstitial densities. Prominent posterior basal opacity on the lateral view probably representing pleural effusions. Consider CHF with pulmonary vascular congestion. - CTA chest: Acute segmental PE in right upper lobe. RV to LV ratio less than 1. No evidence of right heart strain. Aneurysmal ascending thoracic aorta up to 5.4 cm. Small bilateral pleural effusions. Mild interstitial edema. - Laboratory data: WBC 8.4. Hemoglobin 14.1. Platelet count 260. D-dimer 1.53. Sodium 139. Potassium 3.5. BUN 12. Creatinine 0.96. Troponin 0.051. 0.107. proBNP 3850. - Current home cardiac medications include aspirin 81 mg daily, Lasix 20 mg daily, losartan 100 mg daily, metoprolol succinate 25 mg daily, Lipitor 40 mg daily, hydralazine 100 mg 3 times a day - Most recent echocardiogram obtained in April 2023 revealed ejection fracti on 30 to 35% with mild to moderate concentric LVH - Cardiac catheterization history: October 2021 revealing calcified coronary arteries, patent stent in the LAD and left circumflex. Mild to moderate triple- vessel disease. Right dominant system. REVIEW OF SYSTEMS: At the time of my exam: CONSTITUTIONAL: Denies fever or chills. HEENT: Denies blurred vision, vision changes, or eye pain. Denies hemoptysis CARDIOVASCULAR: Denies chest pain. Denies orthopnea. Denies PND. Denies palpitations RESPIRATORY: Denies shortness of breath. GASTROINTESTINAL: Denies abdominal pain. Denies nausea or vomiting. HEMATOLOGIC: Denies bleeding disorders. GENITOURINARY: Denies any blood in urine. SKIN: Denies pruitis. Denies rash. PHYSICAL EXAM: VITAL SIGNS: Reviewed. GENERAL: Well-developed in no acute distress. HEENT: Head is normocephalic. Pupils are equal, round. Sclerae anicteric. Mucous membranes of the mouth are moist. Neck supple. No JVD or thyromegaly LUNGS: Respirations even and unlabored. Lungs essentially clear to auscultation bilaterally. HEART: Regular rate and rhythm. S1 and S2 heard. ABDOMEN: Soft. Nondistended. Nontender. EXTREMITIES: Normal range of motion. No clubbing or cyanosis. Peripheral pulses intact. Trace bilateral lower extremity edema NEUROLOGIC: Awake and alert. Oriented x 3. ASSESSMENT: Shortness of breath Acute right upper lobe pulmonary embolism, without evidence of RV strain per CT Mild acute on chronic heart failure with reduced EF Small bilateral pleural effusions Coronary artery disease with previous stenting of the LAD and circumflex Ischemic cardiomyopathy, 3035% Hypertension Hyperlipidemia Obstructive sleep apnea Thoracic aortic aneurysm, measuring 5.4 cm Obesity: BMI 37.4 PLAN: Obtain 2D echo to assess cardiac structure and function Resume home cardiac medications Patient received a one-time dose of IV Lasix yesterday. Resume oral Lasix but increase dosage to 40 mg daily Patient states he was on Jardiance but it was too expensive and he has been taking a family members medication instead who no longer is prescribed it Continue IV heparin Obtain lower extremity Dopplers Consult pulmonary for evaluation Further recommendations pending patient course Nurse practitioner note has been reviewed by physician. Signing provider agrees with the documented findings, assessment, and plan of care documented by [employer] as a scribe. Past Medical History Past Medical History: Coronary Artery Disease (CAD), Cancer, Heart Failure, Diabetes Mellitus, Hypertension, Myocardial Infarction ([place]), Osteoarthritis (OA), Prostate Disorder, Sleep Apnea/CPAP/BIPAP, Vascular Disorder Additional Past Medical History / Comment(s): Hx [place] X4. Hx Covid 02/20, had mononucal antibodies (with reaction), still has residual vertigo, aches and pains and brain fog. Neuropathy bilateral feet. CPAP use. Hx right ear basal cell skin cancer(removed). Slight BPH, elevate PSA. PVD. Thoracic Aortic Aneurysm. Last Myocardial Infarction Date:: 08/11/19 History of Any Multi-Drug Resistant Organisms: None Reported Past Surgical History: Cholecystectomy, Heart Catheterization, Heart Catheterization With Stent, Joint Replacement, Orthopedic Surgery Additional Past Surgical History / Comment(s): PCI with a total of 7 stents, bilateral knee ACLs, total left knee arthroplasty, right knee arthroscopy, bilateral surgery on elbows, right ear cancer/reconstructive surgery, all teeth removed. Past Anesthesia/Blood Transfusion Reactions: No Reported Reaction Additional Past Anesthesia/Blood Transfusion Reaction / Comment(s): Couldn't urinate after gallbladder surgery, had to be straight cathed X1. Date of Last Stent Placement:: 2017 Past Psychological History: No Psychological Hx Reported Smoking Status: Former smoker Past Alcohol Use History: Rare Past Drug Use History: None Reported - Past Family History Father Family Medical History: Dementia Additional Family Medical History / Comment(s): Father is . Mother Family Medical History: Cancer Additional Family Medical History / Comment(s): MOTHER OF CANCER-FOUND IN LIVER-PRIMARY NEVER KNOWN. Medications and Allergies Home Medications Medication Instructions Recorded Confirmed Type Losartan Potassium 100 mg PO DAILY 04/04/21 01/31/24 History Budesonide/Glycopyr/Formoterol 1 puff INHALATION RT-DAILY PRN 04/02/23 01/31/24 History [Breztri Aerosphere Inhaler] Aspirin 81 mg PO DAILY #30 tab 04/06/23 01/31/24 Rx Atorvastatin [Lipitor] 40 mg PO DAILY 06/27/23 01/31/24 History Metoprolol Succinate (ER) [Toprol 25 mg PO DAILY 10/03/23 01/31/24 History XL] Potassium Chloride ER [K-Dur 20] 20 meq PO DAILY 10/03/23 01/31/24 History Furosemide [Lasix] 20 mg PO DAILY #30 tab 10/05/23 01/31/24 Rx buPROPion XL [Wellbutrin XL] 150 mg PO DAILY 01/31/24 01/31/24 History hydrALAZINE HCL [Apresoline] 100 mg PO TID-W/MEALS 01/31/24 01/31/24 History Allergies Allergy/AdvReac Type Severity Reaction Status Date / Time Penicillins Allergy Severe Swelling Verified 01/31/24 08:34 amlodipine [From Lotrel] Allergy ITCHING/SWE Verified 01/31/24 08:34 LLING benazepril [From Lotrel] Allergy ITCHING/SWE Verified 01/31/24 08:34 LLING Physical Exam Vitals: Vital Signs Temp Pulse Resp BP Pulse Ox 01/31/24 08:54 91 20 136/100 94 L 01/31/24 05:37 65 22 155/95 98 01/31/24 04:40 90 156/113 96 01/31/24 04:00 90 172/91 95 01/31/24 03:00 77 168/74 99 01/31/24 02:15 89 151/103 96 01/31/24 01:30 150/114 91 L 01/31/24 01:00 176/117 90 L 01/31/24 00:30 170/116 94 L 01/30/24 23:35 98.7 F 75 20 151/112 93 L 01/30/24 23:30 70 29 H 166/118 01/30/24 23:00 180/121 01/30/24 22:30 89 28 H 159/109 01/30/24 22:00 90 29 H 174/116 01/30/24 21:50 89 22 01/30/24 21:40 89 30 H 162/114 01/30/24 21:30 93 52 H 176/118 01/30/24 21:20 89 30 H 175/123 01/30/24 21:10 89 21 164/113 01/30/24 21:00 90 19 170/105 01/30/24 20:50 90 12 169/110 01/30/24 20:40 87 12 174/111 01/30/24 20:34 38 H 01/30/24 19:35 220/121 01/30/24 18:05 99.1 F 97 16 97 Intake and Output 01/30/24 01/31/24 01/31/24 22:59 06:59 14:59 Intake Total 6.20 141.45 Balance 6.20 141.45 Intake: Intake, IV Titration 6.20 141.45 Amount Heparin Sod,Pork in 0.45% 141.45 NaCl 25,000 unit In 0.45 % NaCl 1 250ml.bag @ 16. 097 UNITS/KG/HR 23 mls/hr IV .[id number] [facility] Rx#: [id number] Nitroglycerin-D5w Pmx 50 6.20 mg In Dextrose/Water 1 250ml.bag @ 5 MCG/MIN 1.5 mls/hr IV .Q24H ONE Rx#: [id number] Other: Weight 142.882 kg Results 01/31/24 06:26 01/31/24 06:26 Cardiac Enzymes 01/30/24 01/30/24 Range/Units 19:32 19:32 AST 19 (17-59) U/L Troponin I 0.051 H* (0.000-0.034) ng/mL Coagulation 01/30/24 01/31/24 Range/Units 22:01 06:26 PT 11.1 (10.0-12.5) sec APTT 24.4 40.0 H (22.0-30.0) sec CBC 01/30/24 01/31/24 Range/Units 22:01 06:26 WBC 9.6 8.4 (3.8-10.6) k/uL RBC 4.88 4.89 (4.30-5.90) m/uL Hgb 14.0 14.1 (13.0-17.5) gm/dL Hct 44.1 43.4 (39.0-53.0) % Plt Count 290 260 (150-450) k/uL Comprehensive Metabolic Panel 01/30/24 01/31/24 Range/Units 19:32 06:26 Sodium 141 139 (137-145) mmol/L Potassium 3.5 3.5 (3.5-5.1) mmol/L Chloride 109 H 106 (98-107) mmol/L Carbon Dioxide 24 24 (22-30) mmol/L BUN 13 12 (9-20) mg/dL Creatinine 0.97 0.96 (0.66-1.25) mg/dL Glucose 104 H 103 H (74-99) mg/dL Calcium 9.4 9.1 (8.4-10.2) mg/dL AST 19 (17-59) U/L ALT 17 (4-49) U/L Alkaline Phosphatase 97 (38-126) U/L Total Protein 7.3 (6.3-8.2) g/dL Albumin 4.4 (3.5-5.0) g/dL Current Medications Generic Name Dose Route Start Last Admin Trade Name Freq PRN Reason Stop Dose Admin Aspirin 81 mg 01/31/24 09:00 Aspirin 81 Mg PO DAILY [facility] Atorvastatin Calcium 40 mg 01/31/24 21:00 Atorvastatin 40 Mg Tab PO HS [facility] Budesonide/Formoterol Fumarate 2 puff 01/31/24 08:00 Symbicort 160-4.5 Mcg Inhaler INHALATION RT-BID [facility] Dextrose/Water 25 ml 01/31/24 07:07 Dextrose 50% Syringe 50 Ml IVP PER PROTOCOL PRN Hypoglycemia Protocol Dextrose/Water 50 ml 01/31/24 07:07 Dextrose 50% Syringe 50 Ml IVP PER PROTOCOL PRN Hypoglycemia Protocol Furosemide 40 mg 01/31/24 09:15 Furosemide 40 Mg Tab PO DAILY [facility] Heparin Sodium (Porcine) 0 unit 01/31/24 00:33 01/31/24 07:27 Heparin Sodium 1,000 Un/Ml (10ml Vl) IV 5,600 unit PER PROTOCOL PRN Administration Low PTT Protocol Hydralazine HCl 100 mg 01/31/24 09:00 Hydralazine Hcl 50 Mg Tab PO TID [facility] Sodium Chloride 1,000 mls @ 20 mls/hr 01/30/24 22:15 01/31/24 00:00 Saline 0.9% IV 20 mls/hr .Q24H ABBI Administration Heparin Sodium/Sodium Chloride 250 mls @ 23 mls/hr 01/31/24 00:45 01/31/24 07:24 25,000 unit/ Sodium Chloride IV 18.09 units/kg/hr .[id number] ABBI 25.847 mls/hr Titration Protocol 16.097 UNITS/KG/HR Insulin Aspart 0 unit 01/31/24 07:30 Insulin Aspart (Novolog) 100 Unit/Ml Vial SQ ACHS ABBI Protocol Ipratropium [place] 0.5 mg 01/31/24 08:00 Ipratropium 0.5 Mg/2.5 Ml Nebu INHALATION RT-QID [facility] Losartan Potassium 100 mg 01/31/24 09:00 Losartan 50 Mg Tab PO DAILY [facility] Metoprolol Succinate 25 mg 01/31/24 09:00 Metoprolol Succinate (Er) 25 Mg Tab.Er.24h PO DAILY [facility] Naloxone HCl 0.2 mg 01/30/24 22:03 Naloxone 0.4 Mg/Ml 1 Ml Vial IV Q2M PRN Opioid Reversal Intake and Output 01/30/24 01/31/24 01/31/24 22:59 06:59 14:59 Intake Total 6.20 141.45 Balance 6.20 141.45 Intake: Intake, IV Titration 6.20 141.45 Amount Heparin Sod,Pork in 0.45% 141.45 NaCl 25,000 unit In 0.45 % NaCl 1 250ml.bag @ 16. 097 UNITS/KG/HR 23 mls/hr IV .[id number] [facility] Rx#: [id number] Nitroglycerin-D5w Pmx 50 6.20 mg In Dextrose/Water 1 250ml.bag @ 5 MCG/MIN 1.5 mls/hr IV .Q24H ONE Rx#: [id number] Other: Weight 142.882 kg 01/31/24 06:26 01/31/24 06:26
[2024-01-31] MEDS: IPRATROPIUM 0.5 MG/2.5 ML NEBU INHALATION SCH (11:36)
[2024-01-31] MEDS: SYMBICORT 160-4.5 MCG INHALER INHALATION SCH (11:36)
[2024-01-31] MEDS: INSULIN ASPART (NovoLOG) 100 UNIT/ML VIAL SQ SCH (12:04)
--- NOTE | 2024-01-31 12:23 | P.PN ---
Subjective Progress Note Date: 01/31/24 68-year-old male with a PMH of CAD status post stents, systolic CHF (EF 30 to 35% on echo from 04/26), type II DM, hypertension, hyperlipidemia, SANJU who presents to the emergency room with complaints of shortness of breath. States for the last 2 weeks she has had increased shortness of breath that gets worse on exertion. He uses the CPAP and sitting up to relieve the shortness of breath. However today, patient reported that the shortness of breath was intolerable and he could not get up out of bed and decided to seek emergency services. Of note he was diagnosed with a thoracic aortic aneurysm 2 years ago and was following with a CT surgeon, but per patient "the surgeon told me I did not need to have an operation ". As the patient is seeing this, his looks at me and shakes her head no in disagreement. Imaging: - EKG done in the ER showed heart rate of 92 bpm, sinus rhythm with occasional ventricular premature complexes with occasional supraventricular premature complexes, right bundle branch block, and QTc 450. - ER CXR: Mild cardiomegaly and interstitial densities. Prominent posterior basilar opacity on the lateral view probably representing pleural effusions. Consider CHF pulmonary vascular congestion. 01/31/2024 patient seen and examined at bedside. Patient still feels short of breath but is improved compared to admission. He denies headaches, focal weakness, changes in vision, chest pain, calf tenderness, abdominal pain. No acute events overnight. WBC 8.4 hemoglobin 14.1 platelet count 260,000 PTT 40 sodium 139 potassium 3.5 chloride 106 bicarb 24 BUN 12 creatinine 0.96 glucose 103 calcium 9.1 troponin 0.107. CTA chest showed acute segmental PE in the right upper lobe, aneurysmal ascending thoracic aorta up to 5.4 cm. No dissection. Small bilateral pleural effusions. Mild interstitial edema. Brain CT was negative for acute hemorrhage, infarct or mass effect. Review of systems: Pertinent positives and negatives as discussed in HPI, a complete review of systems was performed and all other systems are negative. Pertinent imaging and labs reviewed. Physical examination: Vital signs reviewed General: non toxic, no distress, appears at stated age Derm: no unusual rashes/lesions, warm Head: atraumatic, normocephalic, symmetric Eyes: EOMI, anicteric sclera, pupils equal round reactive to light ENT: Nose and ears atraumatic Neck: No cervical lymphadenopathy, trachea midline, supple Mouth: no lip lesion, mucus membranes moist Cardiovascular: S1S2 reg, no murmur Lungs: Bibasilar decreased breath sounds, no rhonchi, no rales, no accessory muscle use Abdominal: soft, nontender to palpation, no guarding Ext: muscle strength 5 out of 5 in all 4 extremities grossly, no gross muscle atrophy, no contractures, positive dorsalis pedis pulse bilateral, bilateral +1 pitting edema of the lower extremity Neuro: CN II-XI grossly intact, no gross focal neuro deficits Psych: Alert and oriented x3, appropriate affect and mood Assessment/Plan: 68-year-old male with a PMH of CAD status post stents, systolic CHF (EF 30 to 3 5% on echo from 04/26), type II DM, hypertension, hyperlipidemia, history of unrepaired thoracic aortic aneurysm, and SANJU who presents to the emergency room with complaints of shortness of breath. # Submassive right apical PE, unprovoked -Elevated BNP 3850 and troponin 0.051 -Cardiac monitoring -O2 NC as needed -CTA chest showed acute segmental PE in the right upper lobe, aneurysmal ascending thoracic aorta up to 5.4 cm. No dissection. Small bilateral pleural effusions. Mild interstitial edema. -Brain CT was negative for acute hemorrhage, infarct or mass effect -Last echo 04/26 with a EF of 30 to 35%, ordered new echo -Continue on heparin drip -Negative influenza type A and B, RSV, and COVID -Pro-Luis pending -US Duplex of the LEs #Hypertensive Emergency on Admission, improved #Acute on Chronic Systolic Heart Failure, EF 35% #Elevated troponins secondary to type II NSTEMI -Daily weights -Strict intake and output monitoring. Limit to 2 L daily -Initial blood pressure on arrival 220/121, MAP 154, now 155/95 MAP 115 -Was started on nitroglycerin drip 5 mcg/min in the ED, now discontinued -Continue Home hydralazine 100 mg p.o. 3 times daily, metoprolol succinate 25 mg p.o. daily and losartan 100 mg p.o. daily -Spironolactone 25 mg p.o. daily added, Start Farxiga 10 mg p.o. daily. -Cardiology consulted. Lasix was transitioned to PO this morning, then IV lasix 20mg BID readded Chronic Conditions: #Obstructive sleep apnea on CPAP -Supportive oxygen as needed -Advised to use CPAP #Hyperlipidemia -Continue home medications once reconciled by pharmacy #Type II DM -Hold home medications -Ordered sliding scale and Accu-Cheks #CAD status post stents -Continue home medications Aspirin and statin F: Fluid restrict to 2 L E: None N: Heart healthy diet DVT ppx: Heparin drip for PE GI ppx: Protonix 40 mg p.o. daily CODE STATUS: Full code Dispo: Pending clinical course Altagracia Funes MD PGY-1/Hospice Spiritual Care Coordinator Dictation was produced using [employer] dictation software. please excuse any grammatical, word or spelling errors. I saw and evaluated the patient during the manning and critical portions of this encounter, and discussed the case in detail with the resident author of this note, I agree with the Assessment and Plan, and my changes, if any, are highli ghted in blue. Objective - Vital Signs Vital signs: Vital Signs Temp 98.7 F 01/30/24 23:35 Pulse 65 01/31/24 05:37 Resp 22 01/31/24 05:37 BP 155/95 01/31/24 05:37 Pulse Ox 98 01/31/24 05:37 FiO2 Intake & Output 01/30/24 01/31/24 01/31/24 18:59 06:59 18:59 Intake Total 6.20 141.45 Balance 6.20 141.45 Weight 142.882 kg Intake: Intake, IV Titration 6.20 141.45 Amount Heparin Sod,Pork in 0.45% 141.45 NaCl 25,000 unit In 0.45 % NaCl 1 250ml.bag @ 16. 097 UNITS/KG/HR 23 mls/hr IV .[id number] [facility] Rx#: [id number] Nitroglycerin-D5w Pmx 50 6.20 mg In Dextrose/Water 1 250ml.bag @ 5 MCG/MIN 1.5 mls/hr IV .Q24H [facility] Rx#: [id number] - Labs CBC & Chem 7: 01/31/24 06:26 01/31/24 06:26 Labs: Abnormal Lab Results - Last 24 Hours (Table) 01/30/24 01/30/24 01/30/24 Range/Units 19:32 19:32 22:01 RDW (11.5-15.5) % Neutrophils # (1.3-7.7) k/uL APTT (22.0-30.0) sec D-Dimer 1.53 H (<0.60) mg/L FEU Chloride 109 H (98-107) mmol/L Glucose 104 H (74-99) mg/dL Total Bilirubin 1.9 H (0.2-1.3) mg/dL Troponin I 0.051 H* (0.000-0.034) ng/mL 01/30/24 01/31/24 01/31/24 Range/Units 22:01 06:26 06:26 RDW 16.1 H 16.2 H (11.5-15.5) % Neutrophils # 7.8 H (1.3-7.7) k/uL APTT 40.0 H (22.0-30.0) sec D-Dimer (<0.60) mg/L FEU Chloride (98-107) mmol/L Glucose (74-99) mg/dL Total Bilirubin (0.2-1.3) mg/dL Troponin I (0.000-0.034) ng/mL 01/31/24 Range/Units 06:26 RDW (11.5-15.5) % Neutrophils # (1.3-7.7) k/uL APTT (22.0-30.0) sec D-Dimer (<0.60) mg/L FEU Chloride (98-107) mmol/L Glucose 103 H (74-99) mg/dL Total Bilirubin (0.2-1.3) mg/dL Troponin I (0.000-0.034) ng/mL
[2024-01-31 13:00] LABS: Glucose,Whole Blood 95 mg/dL (70-110)
[2024-01-31] MEDS: SPIRONOLACTONE 25 MG TAB PO SCH (13:13)
[2024-01-31] MEDS: DAPAGLIFLOZIN PROPANEDIOL 10 MG TABLET PO SCH (13:13)
[2024-01-31] MEDS: FUROSEMIDE 10 MG/ML 2 ML VIAL IV SCH (13:14)
--- NOTE | 2024-01-31 14:44 | P.CNPUL ---
History of Present Illness Consult date: 01/31/24 Reason for consult: dyspnea History of present illness: This is a obese 68-year-old male patient with known history of coronary artery disease, previous coronary angioplasty and stenting and additional history of congestion heart failure with an ejection fraction of 30 to 35% and mild to moderate LVH. The patient has undergone cardiac catheterization back in October 2021 revealing calcified coronaries, patent stent to LAD and circumflex and mild to moderate triple-vessel coronary artery disease. The patient also has other comorbidities including a ascending thoracic aortic aneurysm measuring 5.4 cm in size. The patient is also known to have hypertension hyperlipidemia and obstructive sleep apnea and he has been very compliant with CPAP therapy. The patient came into the hospital because of worsening shortness of breath. His CBC was essentially within normal limits. D-dimer was at 1.5. Troponin was 0.1 x 2 respectively and the BUN was 12 with a creatinine of 0.9 and a sodium level 139. The proBNP level was elevated at 3850. A CT angiogram of the chest was done. There is evidence of cardiomegaly, aneurysmal dilatation of the ascending thoracic aorta measuring 5.4 cm in size without evidence of dissection. There is interstitial edema. Questionable segmental PE in the right upper lobe. Based on that, the patient was started on IV heparin and pulmonary consultation was requested. He denies having any pleurisy or hemoptysis. He is currently on 2 L of oxygen by nasal cannula with a pulse ox of 94%. Given IV Lasix in the emergency department with excellent diuresis and clinical response. His cardiac rhythm is sinus. Review of Systems Constitutional: Reports daytime sleepiness, Reports fatigue, Reports weight gain Eyes: denies as per HPI, denies blurred vision, denies bulging eye, denies decreased vision, denies diplopia, denies discharge, denies dry eye, denies irritation, denies itching, denies pain, denies photophobia, denies loss of pe ripheral vision, denies loss of vision, denies tunnel vision/blind spots Ears, nose, mouth and throat: Reports as per HPI Breasts: absent: as per HPI, gynecomastia Cardiovascular: Reports decreased exercise tolerance, Reports dyspnea on exertion, Reports edema, Reports shortness of breath Respiratory: Reports dyspnea, Reports sleep apnea, Reports snoring Gastrointestinal: Reports as per HPI Genitourinary: Reports as per HPI Musculoskeletal: Reports as per HPI Musculoskeletal: absent: ankle pain, ankle stiffness, ankle swelling, as per HPI, elbow pain, elbow stiffness, elbow swelling, foot pain, foot stiffness, foot swelling, hand pain, hand stiffness, hand swelling, hip pain, hip stiffness, hip swelling, knee pain, knee stiffness, knee swelling, shoulder pain, shoulder stiffness, shoulder swelling, wrist pain, wrist stiffness, wrist swelling Integumentary: Reports as per HPI Neurological: Reports as per HPI Psychiatric: Reports as per HPI Endocrine: Reports as per HPI Hematologic/Lymphatic: Reports as per HPI Allergic/Immunologic: Reports as per HPI Past Medical History Past Medical History: Coronary Artery Disease (CAD), Cancer, Heart Failure, Diabetes Mellitus, Hypertension, Myocardial Infarction ([place]), Osteoarthritis (OA), Prostate Disorder, Sleep Apnea/CPAP/BIPAP, Vascular Disorder Additional Past Medical History / Comment(s): Hx [place] X4. Hx Covid 02/20, had mon onucal antibodies (with reaction), still has residual vertigo, aches and pains and brain fog. Neuropathy bilateral feet. CPAP use. Hx right ear basal cell skin cancer(removed). Slight BPH, elevate PSA. PVD. Thoracic Aortic Aneurysm. Last Myocardial Infarction Date:: 08/11/19 History of Any Multi-Drug Resistant Organisms: None Reported Past Surgical History: Cholecystectomy, Heart Catheterization, Heart Catheterization With Stent, Joint Replacement, Orthopedic Surgery Additional Past Surgical History / Comment(s): PCI with a total of 7 stents, bilateral knee ACLs, total left knee arthroplasty, right knee arthroscopy, bilateral surgery on elbows, right ear cancer/reconstructive surgery, all teeth removed. Past Anesthesia/Blood Transfusion Reactions: No Reported Reaction Additional Past Anesthesia/Blood Transfusion Reaction / Comment(s): Couldn't urinate after gallbladder surgery, had to be straight cathed X1. Date of Last Stent Placement:: 2017 Past Psychological History: No Psychological Hx Reported Smoking Status: Former smoker Past Alcohol Use History: Rare Past Drug Use History: None Reported - Past Family History Father Family Medical History: Dementia Additional Family Medical History / Comment(s): Father is . Mother Family Medical History: Cancer Additional Family Medical History / Comment(s): MOTHER OF CANCER-FOUND IN LIVER-PRIMARY NEVER KNOWN. Medications and Allergies Home Medications Medication Instructions Recorded Confirmed Type Losartan Potassium 100 mg PO DAILY 04/04/21 01/31/24 History Budesonide/Glycopyr/Formoterol 1 puff INHALATION RT-DAILY PRN 04/02/23 01/31/24 History [Breztri Aerosphere Inhaler] Aspirin 81 mg PO DAILY #30 tab 04/06/23 01/31/24 Rx Atorvastatin [Lipitor] 40 mg PO DAILY 06/27/23 01/31/24 History Metoprolol Succinate (ER) [Toprol 25 mg PO DAILY 10/03/23 01/31/24 History XL] Potassium Chloride ER [K-Dur 20] 20 meq PO DAILY 10/03/23 01/31/24 History Furosemide [Lasix] 20 mg PO DAILY #30 tab 10/05/23 01/31/24 Rx buPROPion XL [Wellbutrin XL] 150 mg PO DAILY 01/31/24 01/31/24 History hydrALAZINE HCL [Apresoline] 100 mg PO TID-W/MEALS 01/31/24 01/31/24 History Allergies Allergy/AdvReac Type Severity Reaction Status Date / Time Penicillins Allergy Severe Swelling Verified 01/31/24 08:34 amlodipine [From Lotrel] Allergy ITCHING/SWE Verified 01/31/24 08:34 LLING benazepril [From Lotrel] Allergy ITCHING/SWE Verified 01/31/24 08:34 LLING Physical Exam Vitals: Vital Signs Temp Pulse Resp BP Pulse Ox 01/31/24 11:44 68 01/31/24 11:39 66 01/31/24 09:28 90 22 132/97 95 01/31/24 08:54 91 20 136/100 94 L 01/31/24 05:37 65 22 155/95 98 01/31/24 04:40 90 156/113 96 01/31/24 04:00 90 172/91 95 01/31/24 03:00 77 168/74 99 01/31/24 02:15 89 151/103 96 01/31/24 01:30 150/114 91 L 01/31/24 01:00 176/117 90 L 01/31/24 00:30 170/116 94 L 01/30/24 23:35 98.7 F 75 20 151/112 93 L 01/30/24 23:30 70 29 H 166/118 01/30/24 23:00 180/121 01/30/24 22:30 89 28 H 159/109 01/30/24 22:00 90 29 H 174/116 01/30/24 21:50 89 22 01/30/24 21:40 89 30 H 162/114 01/30/24 21:30 93 52 H 176/118 01/30/24 21:20 89 30 H 175/123 01/30/24 21:10 89 21 164/113 01/30/24 21:00 90 19 170/105 01/30/24 20:50 90 12 169/110 01/30/24 20:40 87 12 174/111 01/30/24 20:34 38 H 01/30/24 19:35 220/121 01/30/24 18:05 99.1 F 97 16 97 Intake and Output 01/30/24 01/31/24 01/31/24 22:59 06:59 14:59 Intake Total 6.20 141.45 Balance 6.20 141.45 Intake: Intake, IV Titration 6.20 141.45 Amount Heparin Sod,Pork in 0.45% 141.45 NaCl 25,000 unit In 0.45 % NaCl 1 250ml.bag @ 16. 097 UNITS/KG/HR 23 mls/hr IV .[id number] [facility] Rx#: [id number] Nitroglycerin-D5w Pmx 50 6.20 mg In Dextrose/Water 1 250ml.bag @ 5 MCG/MIN 1.5 mls/hr IV .Q24H [facility] Rx#: [id number] Other: Weight 142.882 kg The patient appeared well nourished and normally developed. Vital signs as documented. No significant dyspnea at rest and the patient is currently on 3 days of oxygen by nasal cannula Head exam is unremarkable. No scleral icterus or corneal arcus noted. Neck is with jugular venous distension, thyromegaly, or carotid bruits. Carotid upstrokes are brisk bilaterally. Mallampati class IV with significant crowding of posterior pharynx Lungs are clear to auscultation and percussion. Diminished breath sound lung bases bilaterally Cardiac exam reveals the PMI to be normally sized and situated. Rhythm is regular. First and second heart sounds normal. No murmurs, rubs or gallops. Abdominal exam reveals normal bowel sounds, no masses, no organomegaly and no aortic enlargement. Extremities are nonedematous and both femoral and pedal pulses are normal. Examination of the skin revealed no evidence of significant rashes, suspicious appearing nevi or other concerning lesions. Neurologically, the patient is awake and alert and the patient does not have any focal neurological deficit. Cranial nerves are essentially intact. Results - Laboratory Findings CBC and BMP: 01/31/24 06:26 01/31/24 06:26 PT/INR, D-dimer PT 11.1 sec (10.0-12.5) 01/30/24 22:01 INR 1.0 (<1.2) 01/30/24 22:01 D-Dimer 1.53 mg/L FEU (<0.60) H 01/30/24 22:01 Abnormal lab findings: Abnormal Labs 01/30/24 01/30/24 01/30/24 19:32 19:32 22:01 RDW Neutrophils # APTT D-Dimer 1.53 H Chloride 109 H Glucose 104 H Total Bilirubin 1.9 H Troponin I 0.051 H* 01/30/24 01/31/24 01/31/24 22:01 06:26 06:26 RDW 16.1 H 16.2 H Neutrophils # 7.8 H APTT 40.0 H D-Dimer Chloride Glucose Total Bilirubin Troponin I 01/31/24 01/31/24 06:26 08:56 RDW Neutrophils # APTT D-Dimer Chloride Glucose 103 H Total Bilirubin Troponin I 0.107 H* - Diagnostic Findings Chest x-ray: image reviewed CT scan - chest: image reviewed Assessment and Plan Plan: Acute on chronic dyspnea, likely on the basis of CHF as the patient is known to have cardiomyopathy with an ejection fraction of 30 to 55%, elevated proBNP level and evidence of interstitial edema bilateral pleural effusion on the CT angiogram of the chest that was done at the time of admission. Pulmonary embolism is doubtful despite the report was given showing segmental right upper lobe pulmonary embolism. Presentation is typical for CHF. Coronary artery disease with previous coronary intervention and stenting of the LAD and circumflex and the patient's last cardiac catheterization from 2021 shows mild to moderate triple-vessel disease. Positive troponin leak for now, likely type II myocardial ischemia Acute hypoxic respiratory failure patient is currently on 3 L of oxygen by nasal cannula CHF with impaired LV function and ejection fraction of 30 to 35% Obstructive sleep apnea maintained on CPAP therapy Ascending thoracic aortic aneurysm measuring 5.4 cm in size Hypertension Hyperlipidemia Peripheral neuropathy Diabetes mellitus type 2 BPH History of skin cancer/basal cell carcinoma of the skin Previous history of myocardial infarction Previous history of COVID-19 infection back in 2020. Plan Titrate oxygen flow to maintain saturation above 90%, currently on 3 L Continue IV heparin for now Obtain Doppler of the lower extremities Diurese the patient with IV Lasix Consider repeating the CT angiogram of the chest within the next 24 to 48 hours for better images Cardiology consultations Resume home medication Will continue to follow
--- NOTE | 2024-01-31 15:31 | CA ---
Transthoracic Echo Report Name: Roderick Chauhan Age: 68 Gender: M : 1955 Exam Date: 01/31/2024 09:08 Exam Location: [place] [facility] Ht (in): 77 Wt (lb): 315 Ordering Physician: Altagracia Funes MD Attending/Referring Phys: Automatic Coil Machine Operator Alva Madera RDCS Procedure CPT: Indications: chf Cardiac Hx: Technical Quality: Poor Contrast 1: Definity Total Dose (mL): 2 Contrast 2: Total Dose (mL): MEASUREMENTS (Male / Female) Normal Values 2D ECHO LV Diastolic Diameter PLAX 5.8 cm 4.2 - 5.9 / 3.9 - 5.3 cm LV Systolic Diameter PLAX 4.6 cm IVS Diastolic Thickness 1.7 cm 0.6 - 1.0 / 0.6 - 0.9 cm LVPW Diastolic Thickness 1.8 cm 0.6 - 1.0 / 0.6 - 0.9 cm LV Relative Wall Thickness 0.6 RV Internal Dim ED PLAX 2.8 cm LA Volume 117.8 cm??? 18 - 58 / 22 - 52 cm??? LA Volume Index 41.6 cm???/m??? 16 - 28 cm???/m??? M-MODE Aortic Root Diameter MM 4.4 cm LA Systolic Diameter MM 4.9 cm LA Ao Ratio MM 1.1 AV Cusp Separation MM 2.5 cm DOPPLER AV Peak Velocity 132.0 cm/s AV Peak Gradient 7.0 mmHg AI Peak Velocity 217.2 cm/s AI Peak Gradient 18.9 mmHg AI Pressure Half Time 1039.2 ms FINDINGS Left Ventricle Left ventricular ejection fraction is estimated at 30 to 35 %. Mild left ventricular dilatation. Severely reduced global left ventricular systolic function.Severely increased left ventricular wall thickness. Right Ventricle Normal right ventricular size. Unable to estimate the right ventricular systolic pressure. Right Atrium Mild right atrial dilatation. Left Atrium Severely increased left atrial volume. Mildly increased left atrial area. Mitral Valve Structurally normal mitral valve. Mild mitral regurgitation. No mitral stenosis.mitral annular calcification. Aortic Valve Trileaflet aortic valve. Mild aortic regurgitation. No aortic stenosis.aortic valve sclerosis. Tricuspid Valve Structurally normal tricuspid valve. Trace tricuspid regurgitation. No tricuspid stenosis. Pulmonic Valve Trace pulmonic regurgitation. No pulmonic stenosis.pulmonic valve not well visualized. Pericardium No pericardial or pleural effusion. Aorta Moderate aortic dilatation at the level of the sinuses of valsalva (root) 4.4cm. CONCLUSIONS 1. Severe global hypokinesis of the left ventricle 2. Mild mitral and aortic regurgitation 3. Dilated ascending aorta Technically difficult study. Definity ECHO contrast used for improved visualization of the endocardial borders (inadequate visualization of two or more contiguous segments). Previewed by: Dr. Delta Aguillon MD (Electronically Signed) Final Date: 31 January 2024 15:30
--- NOTE | 2024-01-31 16:04 | US ---
EXAMINATION TYPE: US venous doppler duplex LE BI DATE OF EXAM: 01/31/2024 3:49 PM COMPARISON: NONE CLINICAL INDICATION: Male, 68 years old with history of pain and swelling, +PE, r/o DVT; , TECHNIQUE: The lower extremity deep venous system is examined utilizing real time linear array sonog halle with graded compression, color doppler sonography, and spectral doppler. SIDE PERFORMED: Bilateral FINDINGS: VESSELS IMAGED: Common Femoral Vein Deep Femoral Vein Greater Saphenous Vein * Femoral Vein Popliteal Vein Small Saphenous Vein * Proximal Calf Veins (* superficial vessels) Right Leg: Appears negative for DVT Left Leg: Appears negative for DVT IMPRESSION: No evidence for DVT within the bilateral lower extremities imaged from the groin to the upper calves. [facility], , 01/31/2024 3:56 PM
--- NOTE | 2024-01-31 16:06 | US ---
EXAMINATION TYPE: US venous doppler duplex UE BI DATE OF EXAM: 01/31/2024 COMPARISON: NONE CLINICAL INDICATION: Male, 68 years old with pain and edema, history of Questionable pulmonary emboli sm; TECHNIQUE: Grayscale, color Doppler and spectral Doppler imaging of the upper extremity. SIDE PERFORMED: Bilateral FINDINGS: Right Arm: Appears negative for DVT Left Arm: Appears negative for DVT Bilateral cephalic vein not seen Grayscale, color doppler, spectral doppler imaging performed of the deep veins of the upper extremiti es. IMPRESSION: No evidence for DVT within the bilateral upper extremities. [facility], , 01/31/2024 4:04 PM
[2024-01-31 17:03] LABS: Glucose,Whole Blood 110 mg/dL (70-110)
[2024-01-31 20:28] LABS: Glucose,Whole Blood 132 mg/dL (70-110)
[2024-01-31] MEDS: ATORVASTATIN 40 MG TAB PO SCH (21:47)
[2024-01-31] MEDS: NYSTATIN 100,000 UNIT/GM POWD 15 GM TOPICAL SCH (23:11)
[2024-02-01 02:52] LABS: Anisocytosis Slight; Basophils % (A) 0 %; Eosinophils # (A) 0.5 k/uL (0-0.7); Eosinophils % (A) 5 %; HCT 46.5 % (39.0-53.0); HGB 14.5 gm/dL (13.0-17.5); Hypochromasia Slight; Lymphocytes % (A) 20 %; MCHC 31.2 g/dL (31.0-37.0); MCV 89.6 fL (80.0-100.0); Mean Platelet Volume 8.5; Monocytes # (A) 0.7 k/uL (0-1.0); Monocytes % (A) 7 %; Neutrophils # (A) 6.6 k/uL (1.3-7.7); Neutrophils % (A) 66 %; Platelet Count 277 k/uL (150-450); RBC 5.19 m/uL (4.30-5.90); RDW 16.2 % (11.5-15.5)
[2024-02-01 02:57] LABS: African American GFR (CKD) >90 (>60 ml/min/1.73 sqM); Anion Gap 9 mmol/L; Blood Urea Nitrogen 15 mg/dL (9-20); Carbon Dioxide 25 mmol/L (22-30); Chloride 106 mmol/L (98-107); Glucose 109 mg/dL (74-99); Non-African American GFR(CKD) 81 (>60 ml/min/1.73 sqM); Potassium 2.9 mmol/L (3.5-5.1); Sodium 140 mmol/L (137-145)
[2024-02-01] MEDS ORDERED: Potassium Replacement Protocol 1 EACH MISC MISCELLANE PRN (04:13)
[2024-02-01] MEDS: POTASSIUM CHLORIDE ER 20 MEQ TAB.ER PO SCH (04:26)
[2024-02-01 06:16] LABS: Glucose,Whole Blood 102 mg/dL (70-110)
[2024-02-01] MEDS: PANTOPRAZOLE 40 MG/10 ML VIAL IVP SCH (08:54)
--- NOTE | 2024-02-01 11:03 | P.PN ---
Subjective HISTORY OF PRESENT ILLNESS: This is a 68-year-old male with a past medical history significant for coronary artery disease with previous stenting, congestive heart failure, hypertension, hyperlipidemia, obstructive sleep apnea, cardiomyopathy with ejection fraction 30 to 35%, and thoracic aortic aneurysm. Patient follows in the office with Dr. Aguillon. We have been asked to see the patient in consultation for congestive heart failure. Patient examined at the bedside in the emergency room. Patient states he presented to the hospital with a chief complaint of shortness of breath. Patient states he has been feeling short of breath for the past week and a half. He reports some dizziness as well. Denies any chest pain or pressure. He does report having chills yesterday but denies having a fever. Patient states he did fall a couple weeks ago and has been less active since that time. He reports worsening lower extremity weakness. Blood pressures were initially elevated when he came to the hospital with systolics tween 150 and 190 . Blood pressure at the time of examination 111/86. The patient was found to have pulmonary embolism was started on IV heparin. He denies any known history of PE or DVT. He denies any prolonged travel. He does report he has been less mobile the past few weeks after falling. DIAGNOSTICS: - EKG reveals sinus mechanism with right bundle branch block. - Chest xray mild cardiomegaly and interstitial densities. Prominent posterior basal opacity on the lateral view probably representing pleural effusions. Consider CHF with pulmonary vascular congestion. - CTA chest: Acute segmental PE in right upper lobe. RV to LV ratio less than 1. No evidence of right heart strain. Aneurysmal ascending thoracic aorta up to 5.4 cm. Small bilateral pleural effusions. Mild interstitial edema. - Laboratory data: WBC 8.4. Hemoglobin 14.1. Platelet count 260. D-dimer 1.53. Sodium 139. Potassium 3.5. BUN 12. Creatinine 0.96. Troponin 0.051. 0.107. proBNP 3850. - Current home cardiac medications include aspirin 81 mg daily, Lasix 20 mg daily, losartan 100 mg daily, metoprolol succinate 25 mg daily, Lipitor 40 mg daily, hydralazine 100 mg 3 times a day - Most recent echocardiogram obtained in April 2023 revealed ejection fraction 30 to 35% with mild to moderate concentric LVH - Cardiac catheterization history: October 2021 revealing calcified coronary arteries, patent stent in the LAD and left circumflex. Mild to moderate triple- vessel disease. Right dominant system. 02/01/2024 Patient examined this morning the bedside. Patient currently denies chest pain or pressure. He denies shortness of breath. He was evaluated by pulmonary yesterday who thought pulmonary embolism was unlikely. However they recommended to continue IV heparin and will repeat CT angio tomorrow. Upper and lower Dopplers were negative for DVT. Patient remains on IV Lasix. Kidney function remained stable. Echocardiogram reveals EF 30 to 35%, mild MR, trace TR. PHYSICAL EXAM: VITAL SIGNS: Reviewed. GENERAL: Well-developed in no acute distress. HEENT: Head is normocephalic. Pupils are equal, round. Sclerae anicteric. Mucous membranes of the mouth are moist. Neck supple. No JVD or thyromegaly LUNGS: Respirations even and unlabored. Lungs essentially clear to auscultation bilaterally. HEART: Regular rate and rhythm. S1 and S2 heard. ABDOMEN: Soft. Nondistended. Nontender. EXTREMITIES: Normal range of motion. No clubbing or cyanosis. Peripheral pulses intact. Trace bilateral lower extremity edema NEUROLOGIC: Awake and alert. Oriented x 3. ASSESSMENT: Shortness of breath Acute right upper lobe pulmonary embolism, without evidence of RV strain per CT, however, PE unlikely per pulmonary evaluation Mild acute on chronic heart failure with reduced EF Small bilateral pleural effusions Coronary artery disease with previous stenting of the LAD and circumflex Ischemic cardiomyopathy, 3035% Hypertension Hyperlipidemia Obstructive sleep apnea Thoracic aortic aneurysm, measuring 5.4 cm Obesity: BMI 37.4 PLAN: Continue current cardiac medications Patient states he was on Jardiance but it was too expensive and he has been taking a family members medication instead who no longer is prescribed it Continue IV heparin per pulmonary. Patient to undergo repeat CTA tomorrow per pulmonary medicine Continue IV diuretics for additional 24 hours. Likely transition to oral diuretics tomorrow Daily weights, accurate intake and output, and monitoring of kidney function Further recommendations pending patient course Nurse practitioner note has been reviewed by physician. Signing provider agrees with the documented findings, assessment, and plan of care documented by [employer] as a scribe. Objective - Vital Signs Vital signs: Vital Signs Temp 98.1 F 02/01/24 08:00 Pulse 68 02/01/24 09:36 Resp 18 02/01/24 08:00 BP 157/119 02/01/24 08:00 Pulse Ox 96 02/01/24 09:15 FiO2 Intake & Output 01/31/24 02/01/24 02/01/24 18:59 06:59 18:59 Intake Total 260.00 822.163 180.929 Output Total 1100 1400 Balance -840.00 -577.837 180.929 Weight 142.882 kg 138.346 kg Intake: IV 10 Invasive Line 1 10 Intake, IV Titration 250.00 282.163 180.929 Amount Heparin Sod,Pork in 0.45% 250.00 282.163 180.929 NaCl 25,000 unit In 0.45 % NaCl 1 250ml.bag @ 16. 097 UNITS/KG/HR 23 mls/hr IV .[id number] [facility] Rx#: [id number] Oral 540 Output: Urine 1100 1400 Other: Voiding Method External Catheter External Catheter External Catheter # Bowel Movements 1 - Labs CBC & Chem 7: 02/01/24 06:00 02/01/24 06:00 Labs: Abnormal Lab Results - Last 24 Hours (Table) 01/31/24 01/31/24 01/31/24 Range/Units 12:28 12:28 17:56 RDW (11.5-15.5) % APTT 47.0 H 56.9 H (22.0-30.0) sec Potassium (3.5-5.1) mmol/L Glucose (74-99) mg/dL POC Glucose (mg/dL) (70-110) mg/dL Troponin I 0.110 H* (0.000-0.034) ng/mL 01/31/24 02/01/24 02/01/24 Range/Units 20:26 00:20 06:00 RDW 16.2 H (11.5-15.5) % APTT 63.9 H (22.0-30.0) sec Potassium (3.5-5.1) mmol/L Glucose (74-99) mg/dL POC Glucose (mg/dL) 132 H (70-110) mg/dL Troponin I (0.000-0.034) ng/mL 02/01/24 Range/Units 06:00 RDW (11.5-15.5) % APTT (22.0-30.0) sec Potassium 2.9 L (3.5-5.1) mmol/L Glucose 109 H (74-99) mg/dL POC Glucose (mg/dL) (70-110) mg/dL Troponin I (0.000-0.034) ng/mL
[2024-02-01 11:24] LABS: Glucose,Whole Blood 108 mg/dL (70-110)
--- NOTE | 2024-02-01 11:30 | P.PN ---
Subjective Progress Note Date: 02/01/24 Pt back on room air, and feels much better today. BPs are better controlled as well. Gen: In NAD, non-toxic HEENT: normocephalic, atraumatic, hearing acuity is intant, mucous membranes moist CVS: perfusing all extremities well, trace pitting edema, Respiratory: symmetric chest expansion, no accessory muscle use, GI: soft, NTTP, ND, : no suprapubic tenderness, no CVA tenderness MSK/Derm: no rashes, cyanosis Neuro: CN II-XII intact, no motor weakness, Psych: cooperative, euthymic mood, judgment and insight is intact Hospital Course: 68-year-old male with a PMH of CAD status post stents, systolic CHF (EF 30 to 35% on echo from 04/26), type II DM, hypertension, hyperlipidemia, SANJU who pres ented to the emergency room with complaints of shortness of breath. Imaging: - EKG done in the ER showed heart rate of 92 bpm, sinus rhythm with occasional ventricular premature complexes with occasional supraventricular premature complexes, right bundle branch block, and QTc 450. - ER CXR: Mild cardiomegaly and interstitial densities. Prominent posterior basilar opacity on the lateral view probably representing pleural effusions. Consider CHF pulmonary vascular congestion. - CTA chest showed acute segmental PE in the right upper lobe, aneurysmal ascending thoracic aorta up to 5.4 cm. No dissection. Small bilateral pleural effusions. Mild interstitial edema. - Brain CT was negative for acute hemorrhage, infarct or mass effect 01/31/2024 patient seen and examined at bedside. Patient still feels short of breath but is improved compared to admission. He denies headaches, focal weakness, changes in vision, chest pain, calf tenderness, abdominal pain. No acute events overnight. WBC 8.4 hemoglobin 14.1 platelet count 260,000 PTT 40 sodium 139 potassium 3.5 chloride 106 bicarb 24 BUN 12 creatinine 0.96 glucose 103 calcium 9.1 troponin 0.107. CTA chest showed acute segmental PE in the right upper lobe, aneurysmal ascending thoracic aorta up to 5.4 cm. No dissection. Small bilateral pleural effusions. Mild interstitial edema. Brain CT was neg ative for acute hemorrhage, infarct or mass effect. Assessment/Plan: 68-year-old male with a PMH of CAD status post stents, systolic CHF (EF 30 to 35% on echo from 04/26), type II DM, hypertension, hyperlipidemia, history of unrepaired thoracic aortic aneurysm, and SANJU who presents to the emergency room with complaints of shortness of breath. # Submassive right apical PE, unprovoked -Cardiac monitoring -O2 NC as needed -Last echo 04/26 with a EF of 30 to 35%, ordered new echo -Continue on heparin drip, transition to apixaban tomorrow -Negative influenza type A and B, RSV, and COVID -Pro-Luis 0.13 -US Duplex of the LEs reviewed today and negative for DVT #Hypertensive Emergency on Admission, improved #Acute on Chronic Systolic Heart Failure, EF 35% #Elevated troponins secondary to type II NSTEMI -Daily weights -Strict intake and output monitoring. Limit to 2 L daily -Initial blood pressure on arrival 220/121, MAP 154, now 155/95 MAP 115 -Was started on nitroglycerin drip 5 mcg/min in the ED, now discontinued -Continue Home hydralazine 100 mg p.o. 3 times daily, metoprolol succinate 25 mg p.o. daily and losartan 100 mg p.o. daily -Spironolactone 25 mg p.o. daily added, Continue Farxiga 10 mg p.o. daily. -Cardiology consulted. Chronic Conditions: #Obstructive sleep apnea on CPAP -Supportive oxygen as needed -Advised to use CPAP #Hyperlipidemia -Continue home medications once reconciled by pharmacy #Type II DM -Hold home medications -Ordered sliding scale and Accu-Cheks #CAD status post stents -Continue home medications Aspirin and statin F: Fluid restrict to 2 L E: None N: Heart healthy diet DVT ppx: Heparin drip for PE GI ppx: Protonix 40 mg p.o. daily CODE STATUS: Full code Dispo: Pending clinical course Dictation was produced using [email or web address] dictation software. please excuse any grammatical, word or spelling errors. Objective - Vital Signs Vital signs: Vital Signs Temp 98.1 F 02/01/24 08:00 Pulse 68 02/01/24 09:36 Resp 18 02/01/24 08:00 BP 157/119 02/01/24 08:00 Pulse Ox 96 02/01/24 09:15 FiO2 Intake & Output 11/30/24 12/01/24 12/01/24 18:59 06:59 18:59 Intake Total 260.00 822.163 180.929 Output Total 1100 1400 Balance -840.00 -577.837 180.929 Weight 142.882 kg 138.346 kg Intake: IV 10 Invasive Line 1 10 Intake, IV Titration 250.00 282.163 180.929 Amount Heparin Sod,Pork in 0.45% 250.00 282.163 180.929 NaCl 25,000 unit In 0.45 % NaCl 1 250ml.bag @ 16. 097 UNITS/KG/HR 23 mls/hr IV .[id number] [facility] Rx#: [id number] Oral 540 Output: Urine 1100 1400 Other: Voiding Method External Catheter External Catheter External Catheter # Bowel Movements 1 - Labs CBC & Chem 7: 02/01/24 06:00 02/01/24 06:00 Labs: Abnormal Lab Results - Last 24 Hours (Table) 01/31/24 01/31/24 01/31/24 Range/Units 12:28 12:28 17:56 RDW (11.5-15.5) % APTT 47.0 H 56.9 H (22.0-30.0) sec Potassium (3.5-5.1) mmol/L Glucose (74-99) mg/dL POC Glucose (mg/dL) (70-110) mg/dL Troponin I 0.110 H* (0.000-0.034) ng/mL 01/31/24 02/01/24 02/01/24 Range/Units 20:26 00:20 06:00 RDW 16.2 H (11.5-15.5) % APTT 63.9 H (22.0-30.0) sec Potassium (3.5-5.1) mmol/L Glucose (74-99) mg/dL POC Glucose (mg/dL) 132 H (70-110) mg/dL Troponin I (0.000-0.034) ng/mL 02/01/24 Range/Units 06:00 RDW (11.5-15.5) % APTT (22.0-30.0) sec Potassium 2.9 L (3.5-5.1) mmol/L Glucose 109 H (74-99) mg/dL POC Glucose (mg/dL) (70-110) mg/dL Troponin I (0.000-0.034) ng/mL
--- NOTE | 2024-02-01 13:22 | P.PN ---
Subjective Progress Note Date: 02/01/24 This is a obese 68-year-old male patient with known history of coronary artery disease, previous coronary angioplasty and stenting and additional history of congestion heart failure with an ejection fraction of 30 to 35% and mild to moderate LVH. The patient has undergone cardiac catheterization back in October 2021 revealing calcified coronaries, patent stent to LAD and circumflex and mild to moderate triple-vessel coronary artery disease. The patient also has other comorbidities including a ascending thoracic aortic aneurysm measuring 5.4 cm in size. The patient is also known to have hypertension hyperlipidemia and obstructive sleep apnea and he has been very compliant with CPAP therapy. The patient came into the hospital because of worsening shortness of breath. His CBC was essentially within normal limits. D-dimer was at 1.5. Troponin was 0.1 x 2 respectively and the BUN was 12 with a creatinine of 0.9 and a sodium level 139. The proBNP level was elevated at 3850. A CT angiogram of the chest was done. There is evidence of cardiomegaly, aneurysmal dilatation of the ascending thoracic aorta measuring 5.4 cm in size without evidence of dissection. There is interstitial edema. Questionable segmental PE in the right upper lobe. Based on that, the patient was started on IV heparin and pulmonary consultation was requested. He denies having any pleurisy or hemoptysis. He is currently on 2 L of oxygen by nasal cannula with a pulse ox of 94%. Given IV Lasix in the emergency department with excellent diuresis and clinical response. His cardiac rhythm is sinus. On 02/01/2024, the patient is feeling less short of breath compared to yesterday. The patient was placed on room air oxygen. He has produced excellent urine output over the past 24 hours. He remains on Lasix 20 mg IV every 12 hours. Fluid balance has been essentially -1.4 L. The white cell count is at 10 with a hemoglobin 14.5 and a platelet count of 277. BUN is 15 with a creatinine of 0.9 and sodium is at 140. Potassium level is at 2.9. Remains on IV heparin for a suspicion of a pulmonary embolism. I think this is considered to be less likely at this point. Objective - Vital Signs Vital signs: Vital Signs Temp 97.9 F 01/31/24 20:00 Pulse 68 02/01/24 09:36 Resp 16 02/01/24 04:00 BP 151/92 02/01/24 04:00 Pulse Ox 96 02/01/24 09:15 FiO2 Intake & Output 01/31/24 02/01/24 02/01/24 18:59 06:59 18:59 Intake Total 260.00 822.163 180.929 Output Total 1100 1400 Balance -840.00 -577.837 180.929 Weight 142.882 kg 138.346 kg Intake: IV 10 Invasive Line 1 10 Intake, IV Titration 250.00 282.163 180.929 Amount Heparin Sod,Pork in 0.45% 250.00 282.163 180.929 NaCl 25,000 unit In 0.45 % NaCl 1 250ml.bag @ 16. 097 UNITS/KG/HR 23 mls/hr IV .[id number] [facility] Rx#: [id number] Oral 540 Output: Urine 1100 1400 Other: Voiding Method External Catheter External Catheter # Bowel Movements 1 - Exam The patient appeared well nourished and normally developed. Vital signs as documented. No significant dyspnea at rest and the patient is currently on room air Head exam is unremarkable. No scleral icterus or corneal arcus noted. Neck is with jugular venous distension, thyromegaly, or carotid bruits. Carotid upstrokes are brisk bilaterally. Mallampati class IV with significant crowding of posterior pharynx Lungs are clear to auscultation and percussion. Diminished breath sound lung bases bilaterally Cardiac exam reveals the PMI to be normally sized and situated. Rhythm is regular. First and second heart sounds normal. No murmurs, rubs or gallops. Abdominal exam reveals normal bowel sounds, no masses, no organomegaly and no aortic enlargement. Extremities are nonedematous and both femoral and pedal pulses are normal. Examination of the skin revealed no evidence of significant rashes, suspicious appearing nevi or other concerning lesions. Neurologically, the patient is awake and alert and the patient does not have any focal neurological deficit. Cranial nerves are essentially intact. - Labs CBC & Chem 7: 02/01/24 06:00 02/01/24 06:00 Labs: Abnormal Lab Results - Last 24 Hours (Table) 01/31/24 01/31/24 01/31/24 Range/Units 12:28 12: 17:56 RDW (11.5-15.5) % APTT 47.0 H 56.9 H (22.0-30.0) sec Potassium (3.5-5.1) mmol/L Glucose (74-99) mg/dL POC Glucose (mg/dL) (70-110) mg/dL Troponin I 0.110 H* (0.000-0.034) ng/mL 01/31/24 02/01/24 02/01/24 Range/Units 20:26 00:20 06:00 RDW 16.2 H (11.5-15.5) % APTT 63.9 H (22.0-30.0) sec Potassium (3.5-5.1) mmol/L Glucose (74-99) mg/dL POC Glucose (mg/dL) 132 H (70-110) mg/dL Troponin I (0.000-0.034) ng/mL 02/01/24 Range/Units 06:00 RDW (11.5-15.5) % APTT (22.0-30.0) sec Potassium 2.9 L (3.5-5.1) mmol/L Glucose 109 H (74-99) mg/dL POC Glucose (mg/dL) (70-110) mg/dL Troponin I (0.000-0.034) ng/mL Assessment and Plan Plan: Acute on chronic dyspnea, likely on the basis of CHF as the patient is known to have cardiomyopathy with an ejection fraction of 30 to 55%, elevated proBNP level and evidence of interstitial edema bilateral pleural effusion on the CT angiogram of the chest that was done at the time of admission. Pulmonary embolism is doubtful despite the report was given showing segmental right upper lobe pulmonary embolism. Presentation is typical for CHF. The patient despite Lasix diuretics. He remains on Lasix 20 mg IV every 12 hours with excellent urine output and negative fluid balance. Oxygenation is improved and the patient is currently on room air oxygen. Pulmonary embolism is doubtful. Coronary artery disease with previous coronary intervention and stenting of the LAD and circumflex and the patient's last cardiac catheterization from 2021 shows mild to moderate triple-vessel disease. Positive troponin leak for now, likely type II myocardial ischemia Acute hypoxic respiratory failure patient is currently on room air oxygen CHF with impaired LV function and ejection fraction of 30 to 35% Obstructive sleep apnea maintained on CPAP therapy Ascending thoracic aortic aneurysm measuring 5.4 cm in size Hypertension Hyperlipidemia Peripheral neuropathy Diabetes mellitus type 2 BPH History of skin cancer/basal cell carcinoma of the skin Previous history of myocardial infarction Previous history of COVID-19 infection back in 2020. Plan Titrate oxygen flow to maintain saturation above 90%, currently on room air oxygen Continue IV heparin for now Obtain Doppler of the lower extremities was negative for DVT Diurese the patient with IV Lasix Consider repeating the CT angiogram of the chest within the next 24 to 48 hours once the patient is adequately diuresed to reevaluate for pulmonary embolism. As mentioned, my suspicion is quite low. Cardiology consultations Resume home medication Will continue to follow
[2024-02-01 16:22] LABS: Glucose,Whole Blood 99 mg/dL (70-110)
[2024-02-01 20:26] LABS: Glucose,Whole Blood 101 mg/dL (70-110)
[2024-02-02 06:39] LABS: Glucose,Whole Blood 101 mg/dL (70-110)
--- NOTE | 2024-02-02 10:11 | P.PN ---
Subjective Progress Note Date: 02/02/24 HISTORY OF PRESENT ILLNESS: This is a 68-year-old male with a past medical history significant for coronary artery disease with previous stenting, congestive heart failure, hypertension, hyperlipidemia, obstructive sleep apnea, cardiomyopathy with ejection fraction 30 to 35%, and thoracic aortic aneurysm. Patient follows in the office with Dr. Aguillon. We have been asked to see the patient in consultation for congestive heart failure. Patient examined at the bedside in the emergency room. Patient s lindsay he presented to the hospital with a chief complaint of shortness of breath. Patient states he has been feeling short of breath for the past week and a half. He reports some dizziness as well. Denies any chest pain or pressure. He does report having chills yesterday but denies having a fever. Patient states he did fall a couple weeks ago and has been less active since that time. He reports worsening lower extremity weakness. Blood pressures were initially elevated when he came to the hospital with systolics tween 150 and 190. Blood pressure at the time of examination 111/86. The patient was found to have pulmonary embolism was started on IV heparin. He denies any known history of PE or DVT. He denies any prolonged travel. He does report he has been less mobile the past few weeks after falling. DIAGNOSTICS: - EKG reveals sinus mechanism with right bundle branch block. - Chest xray mild cardiomegaly and interstitial densities. Prominent posterior basal opacity on the lateral view probably representing pleural effusions. Consider CHF with pulmonary vascular congestion. - CTA chest: Acute segmental PE in right upper lobe. RV to LV ratio less than 1. No evidence of right heart strain. Aneurysmal ascending thoracic aorta up to 5.4 cm. Small bilateral pleural effusions. Mild interstitial edema. - Laboratory data: WBC 8.4. Hemoglobin 14.1. Platelet count 260. D-dimer 1.53. Sodium 139. Potassium 3.5. BUN 12. Creatinine 0.96. Troponin 0.051. 0.107. proBNP 3850. - Current home cardiac medications include aspirin 81 mg daily, Lasix 20 mg daily, losartan 100 mg daily, metoprolol succinate 25 mg daily, Lipitor 40 mg daily, hydralazine 100 mg 3 times a day - Most recent echocardiogram obtained in April 2023 revealed ejection fraction 30 to 35% with mild to moderate concentric LVH - Cardiac catheterization history: October 2021 revealing calcified coronary arteries, patent stent in the LAD and left circumflex. Mild to moderate triple- vessel disease. Right dominant system. 02/01/2024 Patient examined this morning the bedside. Patient currently denies chest pain or pressure. He denies shortness of breath. He was evaluated by pulmonary yes terday who thought pulmonary embolism was unlikely. However they recommended to continue IV heparin and will repeat CT angio tomorrow. Upper and lower Dopplers were negative for DVT. Patient remains on IV Lasix. Kidney function remained stable. Echocardiogram reveals EF 30 to 35%, mild MR, trace TR. 02/02/24 Patient seen and examined. Patient is stating that he feels a lot better today. He remains on a heparin drip and is scheduled for repeat CTA per pulmonary. No lower extremity edema. Blood pressure 163/110, heart rate 60s, pulse ox 97% on room air. PHYSICAL EXAM: VITAL SIGNS: Reviewed. GENERAL: Well-developed in no acute distress. HEENT: Head is normocephalic. Pupils are equal, round. Sclerae anicteric. Mucous membranes of the mouth are moist. Neck supple. No JVD or thyromegaly LUNGS: Respirations even and unlabored. Lungs essentially clear to auscultation bilaterally. HEART: Regular rate and rhythm. S1 and S2 heard. ABDOMEN: Soft. Nondistended. Nontender. EXTREMITIES: No clubbing or cyanosis. Peripheral pulses intact. Trace bilateral lower extremity edema NEUROLOGIC: Awake and alert. Oriented x 3. ASSESSMENT: Shortness of breath Acute right upper lobe pulmonary embolism, without evidence of RV strain per CT, however, PE unlikely per pulmonary evaluation Mild acute on chronic heart failure with reduced EF Small bilateral pleural effusions Coronary artery disease with previous stenting of the LAD and circumflex Ischemic cardiomyopathy, 3035% Hypertension, uncontrolled Hyperlipidemia Obstructive sleep apnea Thoracic aortic aneurysm, measuring 5.4 cm Obesity: BMI 37.4 PLAN: Continue current cardiac medications: Aspirin 81 mg daily, atorvastatin 40 mg d aily, Farxiga 10 mg daily, hydralazine 100 mg 3 times daily, losartan 100 mg daily, Toprol-XL 25 mg daily, Aldactone 25 mg daily Start patient on amlodipine 5 mg daily Continue IV heparin per pulmonary. Patient to undergo repeat CTA tomorrow per pulmonary medicine Transition IV Lasix to oral 40 mg daily cs tomorrow Daily weights, accurate intake and output, and monitoring of kidney function Further recommendations pending patient course Nurse practitioner note has been reviewed by physician. Signing provider agrees with the documented findings, assessment, and plan of care documented by [employer] as a scribe. Objective - Vital Signs Vital signs: Vital Signs Temp 97.9 F 02/02/24 04:00 Pulse 60 02/02/24 08:00 Resp 18 02/02/24 04:00 BP 163/104 02/02/24 04:00 Pulse Ox 93 L 02/02/24 07:49 FiO2 Intake & Output 02/01/24 02/02/24 02/02/24 18:59 06:59 18:59 Intake Total 1420.198 254.593 Output Total 950 1000 Balance 470.198 -745.407 Weight 131.7 kg Intake: Intake, IV Titration 400.198 254.593 Amount Heparin Sod,Pork in 0.45% 400.198 254.593 NaCl 25,000 unit In 0.45 % NaCl 1 250ml.bag @ 16. 097 UNITS/KG/HR 23 mls/hr IV .[id number] [facility] Rx#: [id number] Oral 1020 Output: Urine 950 1000 Other: Voiding Method External Catheter External Catheter - Labs CBC & Chem 7: 02/01/24 06:00 02/01/24 06:00 Labs: Abnormal Lab Results - Last 24 Hours (Table) 02/01/24 02/02/24 Range/Units 06:10 01:40 APTT 141.8 H* (22.0-30.0) sec NT-Pro-B Natriuret Pep 3063 H (0-125) pg/mL
[2024-02-02 10:38] LABS: Basophils # (A) 0.1 k/uL (0-0.2); Basophils % (A) 1 %; Eosinophils # (A) 0.4 k/uL (0-0.7); Eosinophils % (A) 4 %; HCT 48.9 % (39.0-53.0); HGB 15.4 gm/dL (13.0-17.5); Hypochromasia Moderate; Lymphocytes # (A) 1.9 k/uL (1.0-4.8); Lymphocytes % (A) 19 %; MCH 28.6 pg (25.0-35.0); MCHC 31.6 g/dL (31.0-37.0); MCV 90.4 fL (80.0-100.0); Mean Platelet Volume 7.5; Monocytes # (A) 0.6 k/uL (0-1.0); Monocytes % (A) 6 %; Neutrophils % (A) 70 %; Platelet Count 295 k/uL (150-450); RDW 15.7 % (11.5-15.5); WBC 10.1 k/uL (3.8-10.6)
[2024-02-02] MEDS: amLODIPine 5 MG TAB PO SCH (11:21)
[2024-02-02 11:59] LABS: Glucose,Whole Blood 114 mg/dL (70-110)
[2024-02-02 12:49] LABS: African American GFR (CKD) >90 (>60 ml/min/1.73 sqM); Anion Gap 8 mmol/L; Blood Urea Nitrogen 17 mg/dL (9-20); Calcium 9.4 mg/dL (8.4-10.2); Carbon Dioxide 24 mmol/L (22-30); Chloride 108 mmol/L (98-107); Glucose 105 mg/dL (74-99); Non-African American GFR(CKD) 78 (>60 ml/min/1.73 sqM); Sodium 140 mmol/L (137-145)
[2024-02-02 12:58] LABS: Potassium 3.6 mmol/L (3.5-5.1)
--- NOTE | 2024-02-02 15:50 | P.PN ---
Subjective Progress Note Date: 02/02/24 Principal diagnosis: Acute systolic congestive heart failure This is a obese 68-year-old male patient with known history of coronary artery disease, previous coronary angioplasty and stenting and additional history of congestion heart failure with an ejection fraction of 30 to 35% and mild to moderate LVH. The patient has undergone cardiac catheterization back in October 2021 revealing calcified coronaries, patent stent to LAD and circumflex and mild to moderate triple-vessel coronary artery disease. The patient also has other comorbidities including a ascending thoracic aortic aneurysm measuring 5.4 cm in size. The patient is also known to have hypertension hyperlipidemia and obstructive sleep apnea and he has been very compliant with CPAP therapy. The patient came into the hospital because of worsening shortness of breath. His CBC was essentially within normal limits. D-dimer was at 1.5. Troponin was 0.1 x 2 respectively and the BUN was 12 with a creatinine of 0.9 and a sodium level 139. The proBNP level was elevated at 3850. A CT angiogram of the chest was done. There is evidence of cardiomegaly, aneurysmal dilatation of the ascending thoracic aorta measuring 5.4 cm in size without evidence of dissection. There is interstitial edema. Questionable segmental PE in the right upper lobe. Based on that, the patient was started on IV heparin and pulmonary consultation was requested. He denies having any pleurisy or hemoptysis. He is currently on 2 L of oxygen by nasal cannula with a pulse ox of 94%. Given IV Lasix in the emergency department with excellent diuresis and clinical response. His cardiac rhythm is sinus. On 02/01/2024, the patient is feeling less short of breath compared to yesterday. The patient was placed on room air oxygen. He has produced excellent urine output over the past 24 hours. He remains on Lasix 20 mg IV every 12 hours. Fluid balance has been essentially -1.4 L. The white cell count is at 10 with a hemoglobin 14.5 and a platelet count of 277. BUN is 15 with a creatinine of 0.9 and sodium is at 140. Potassium level is at 2.9. Remains on IV heparin for a suspicion of a pulmonary embolism. I think this is considered to be less likely at this point. Patient was seen on 02/02/2024, patient seems to be doing well today, breathing a lot easier, he is now on room air, O2 saturation 96% chest x-ray on admission is suggestive of pulmonary edema follow-up chest x-ray is pending. Labs today showed relatively normal CBC PTT is 90.8 electrolytes are normal renal profile is normal last BNP is just over 3000. Procalcitonin level is 0.13 Objective - Vital Signs Vital signs: Vital Signs Temp 98.0 F 02/02/24 14:51 Pulse 64 02/02/24 15:26 Resp 16 02/02/24 14:51 BP 148/101 02/02/24 14:51 Pulse Ox 96 02/02/24 14:51 FiO2 Intake & Output 02/01/24 02/02/24 02/02/24 18:59 06:59 18:59 Intake Total 1420.198 254.593 560.909 Output Total 950 1000 950 Balance 470.198 -745.407 -389.091 Weight 131.7 kg Intake: Intake, IV Titration 400.198 254.593 200.909 Amount Heparin Sod,Pork in 0.45% 400.198 254.593 200.909 NaCl 25,000 unit In 0.45 % NaCl 1 250ml.bag @ 16. 097 UNITS/KG/HR 23 mls/hr IV .[id number] [facility] Rx#: [id number] Oral 1020 360 Output: Urine 950 1000 950 Other: Voiding Method External Catheter External Catheter External Catheter - Exam GENERAL: Revealed a 68-year-old white male in no distress Head: Atraumatic, normocephalic HEENT: Pupils are equal, round. Sclerae anicteric. Mucous membranes of the mouth are moist. Neck supple. No JVD or thyromegaly LUNGS: Respirations even and unlabored. Clear breath sound bilaterally no crackles rhonchi or wheezes HEART: Regular rate and rhythm. S1 and S2 heard. ABDOMEN: Soft. Nondistended. Nontender. EXTREMITIES: Normal range of motion. No clubbing or cyanosis. Peripheral pulses intact. Trace bilateral lower extremity edema NEUROLOGIC: Alert oriented x 3 no gross focal deficit psychiatric: Normal mood affect and no mental status examined - Labs CBC & Chem 7: 02/02/24 10:12 02/02/24 10:12 Labs: Abnormal Lab Results - Last 24 Hours (Table) 02/01/24 02/02/24 02/02/24 Range/Units 06:10 01:40 10:12 RDW (11.5-15.5) % APTT 141.8 H* 90.8 H (22.0-30.0) sec Chloride (98-107) mmol/L Glucose (74-99) mg/dL POC Glucose (mg/dL) (70-110) mg/dL NT-Pro-B Natriuret Pep 3063 H (0-125) pg/mL 02/02/24 02/02/24 02/02/24 Range/Units 10:12 10:12 11:58 RDW 15.7 H (11.5-15.5) % APTT (22.0-30.0) sec Chloride 108 H (98-107) mmol/L Glucose 105 H (74-99) mg/dL POC Glucose (mg/dL) 114 H (70-110) mg/dL NT-Pro-B Natriuret Pep (0-125) pg/mL Assessment and Plan Assessment: Impression: Acute on chronic dyspnea, likely on the basis of CHF as the patient is known to have cardiomyopathy with an ejection fraction of 30 to 55%, elevated proBNP level and evidence of interstitial edema bilateral pleural effusion Possible pulmonary embolism Coronary artery disease with previous coronary intervention and stenting of the LAD and circumflex and the patient's last cardiac catheterization from 2021 shows mild to moderate triple-vessel disease. Positive troponin leak for now, likely type II myocardial ischemia CHF with impaired LV function and ejection fraction of 30 to 35% Obstructive sleep apnea maintained on CPAP therapy Ascending thoracic aortic aneurysm measuring 5.4 cm in size Hypertension Hyperlipidemia Peripheral neuropathy Diabetes mellitus type 2 BPH History of skin cancer/basal cell carcinoma of the skin Previous history of myocardial infarction Recommendation: Continue present supportive care measures Continue heparin and eventually transition to Eliquis Continue Lasix/diuretics Resume home meds Repeat chest x-ray Will continue to follow Time with Patient: Less than 30
[2024-02-02 16:30] LABS: Glucose,Whole Blood 108 mg/dL (70-110)
--- NOTE | 2024-02-02 16:38 | P.PN ---
Subjective Progress Note Date: 02/02/24 68-year-old male with a PMH of CAD status post stents, systolic CHF (EF 30 to 35% on echo from 04/26), type II DM, hypertension, hyperlipidemia, SANJU who presents to the emergency room with complaints of shortness of breath. States for the last 2 weeks she has had increased shortness of breath that gets worse on exertion. He uses the CPAP and sitting up to relieve the shortness of breath. However today, patient reported that the shortness of breath was intolerable and he could not get up out of bed and decided to seek emergency services. Of note he was diagnosed with a thoracic aortic aneurysm 2 years ago and was following with a CT surgeon, but per patient "the surgeon told me I did not need to have an operation ". As the patient is seeing this, his looks at me and shakes her head no in disagreement. Imaging: - EKG done in the ER showed heart rate of 92 bpm, sinus rhythm with occasional ventricular premature complexes with occasional supraventricular premature complexes, right bundle branch block, and QTc 450. - ER CXR: Mild cardiomegaly and interstitial densities. Prominent posterior basilar opacity on the lateral view probably representing pleural effusions. Consider CHF pulmonary vascular congestion. 01/31/2024 patient seen and examined at bedside. Patient still feels short of breath but is improved compared to admission. He denies headaches, focal weakness, changes in vision, chest pain, calf tenderness, abdominal pain. No acute events overnight. WBC 8.4 hemoglobin 14.1 platelet count 260,000 PTT 40 sodium 139 potassium 3.5 chloride 106 bicarb 24 BUN 12 creatinine 0.96 glucose 103 calcium 9.1 troponin 0.107. CTA chest showed acute segmental PE in the right upper lobe, aneurysmal ascending thoracic aorta up to 5.4 cm. No dissection. Small bilateral pleural effusions. Mild interstitial edema. Brain CT was negative for acute hemorrhage, infarct or mass effect. 02/01/2024 Pt back on room air, and feels much better today. BPs are better controlled as well. 02/02/2024 patient seen and examined at bedside. Patient noted improved breathing overnight. No acute events overnight. WBC 12.1 hemoglobin 15.4 platelet count 295 PTT 141.8 sodium 140 potassium 3.6 chloride 108 bicarb 24 BUN 17 creatinine 0.99 glucose 105 calcium 9.4 Review of systems: Pertinent positives and negatives as discussed in HPI, a complete review of systems was performed and all other systems are negative. Pertinent imaging and labs reviewed. Physical examination: Vital signs reviewed General: non toxic, no distress, appears at stated age Derm: no unusual rashes/lesions, warm Head: atraumatic, normocephalic, symmetric Eyes: EOMI, anicteric sclera, pupils equal round reactive to light ENT: Nose and ears atraumatic Neck: No cervical lymphadenopathy, trachea midline, supple Mouth: no lip lesion, mucus membranes moist Cardiovascular: S1S2 reg, no murmur Lungs: CTA bilateral, no rhonchi, no rales, no accessory muscle use Abdominal: soft, nontender to palpation, no guarding Ext: muscle strength 5 out of 5 in all 4 extremities grossly, no gross muscle atrophy, no contractures, positive dorsalis pedis pulse bilateral, bilateral +1 pitting edema of the lower extremity Neuro: CN II-XI grossly intact, no gross focal neuro deficits Psych: Alert and oriented x3, appropriate affect and mood Assessment/Plan: 68-year-old male with a PMH of CAD status post stents, systolic CHF (EF 30 to 35% on echo from 04/26), type II DM, hypertension, hyperlipidemia, history of unrepaired thoracic aortic aneurysm, and SANJU who presents to the emergency room with complaints of shortness of breath. # Hypertensive Emergency on Admission, improved # Acute on Chronic Systolic CHF complicated by hypertensive emergency, improving, not on GDMT # Elevated troponins secondary to type II NSTEMI, stable -Daily weights -Strict intake and output monitoring. Limit to 2 L daily -Initial blood pressure on arrival 220/121, now 163/110 -Was started on nitroglycerin drip 5 mcg/min in the ED -Continue Home hydralazine 100 mg p.o. 3 times daily, metoprolol succinate 25 mg p.o. daily and losartan 100 mg p.o. daily -Spironolactone 25 mg p.o. daily -Cardiology consulted. Continue Lasix 40 mg p.o. daily. Continue Farxiga 10 mg p.o. daily. --PT/OT consulted # Non-massive right apical PE, provoked # Debility Patient reported that he had falls in late December that caused him to be immobile for prolonged periods of the day. -Cardiac monitoring -O2 NC as needed -Last echo echo on 01/30 showed ejection fraction of 30 to 35% with severe hypokinesis mild mitral regurgitation and mild aortic regurgitation and dilated ascending aorta -Continue on heparin drip. Transition to oral Eliquis pack on discharge -Negative influenza type A and B, RSV, and COVID -Pro-Luis 0.13 -We will defer the need for repeat CT chest to our pulmonology team -Pulmonology following Chronic Conditions: #Obstructive sleep apnea on CPAP -Supportive oxygen as needed -Advised to use CPAP #Hypertension -Continue home medications once reconciled by pharmacy #Hyperlipidemia -Continue home medications once reconciled by pharmacy #Type II DM -Hold home medications -Ordered sliding scale and Accu-Cheks #CAD status post stents -Continue home medications Aspirin and statin F: Fluid restrict to 2 L E: None N: Heart healthy diet DVT ppx: Heparin drip for PE GI ppx: Protonix 40 mg p.o. daily CODE STATUS: Full code Dispo: Pending clinical course Altagracia Funes MD PGY-1/Design Eng Dictation was produced using [employer] dictation software. please excuse any grammatical, word or spelling errors. I saw and evaluated the patient during the manning and critical portions of this encounter, and discussed the case in detail with the resident author of this note, I agree with the Assessment and Plan, and my changes, if any, are highlighted in blue. Objective - Vital Signs Vital signs: Vital Signs Temp 98.0 F 02/02/24 14:51 Pulse 64 02/02/24 15:26 Resp 16 02/02/24 14:51 BP 148/101 02/02/24 14:51 Pulse Ox 96 02/02/24 14:51 FiO2 Intake & Output 02/01/24 02/02/24 02/02/24 18:59 06:59 18:59 Intake Total 1420.198 254.593 560.909 Output Total 950 1000 950 Balance 470.198 -745.407 -389.091 Weight 131.7 kg Intake: Intake, IV Titration 400.198 254.593 200.909 Amount Heparin Sod,Pork in 0.45% 400.198 254.593 200.909 NaCl 25,000 unit In 0.45 % NaCl 1 250ml.bag @ 16. 097 UNITS/KG/HR 23 mls/hr IV .[id number] [facility] Rx#: [id number] Oral 1020 360 Output: Urine 950 1000 950 Other: Voiding Method External Catheter External Catheter External Catheter - Labs CBC & Chem 7: 02/02/24 10:12 02/02/24 10:12 Labs: Abnormal Lab Results - Last 24 Hours (Table) 02/01/24 02/02/24 02/02/24 Range/Units 06:10 01:40 10:12 RDW (11.5-15.5) % APTT 141.8 H* 90.8 H (22.0-30.0) sec Chloride (98-107) mmol/L Glucose (74-99) mg/dL POC Glucose (mg/dL) (70-110) mg/dL NT-Pro-B Natriuret Pep 3063 H (0-125) pg/mL 02/02/24 02/02/24 02/02/24 Range/Units 10:12 10:12 11:58 RDW 15.7 H (11.5-15.5) % APTT (22.0-30.0) sec Chloride 108 H (98-107) mmol/L Glucose 105 H (74-99) mg/dL POC Glucose (mg/dL) 114 H (70-110) mg/dL NT-Pro-B Natriuret Pep (0-125) pg/mL
[2024-02-02 20:12] LABS: Glucose,Whole Blood 113 mg/dL (70-110)
[2024-02-03 05:55] LABS: Glucose,Whole Blood 113 mg/dL (70-110)
[2024-02-03] MEDS: amLODIPine 10 MG TAB PO SCH (08:58)
[2024-02-03] MEDS: cloNIDine HCL 0.1 MG TAB PO SCH (08:59)
[2024-02-03] MEDS: FUROSEMIDE 40 MG TAB PO SCH (08:59)
--- NOTE | 2024-02-03 10:06 | P.PN ---
Subjective Progress Note Date: 02/03/24 HISTORY OF PRESENT ILLNESS: This is a 68-year-old male with a past medical history significant for coronary artery disease with previous stenting, congestive heart failure, hypertension, hyperlipidemia, obstructive sleep apnea, cardiomyopathy with ejection fraction 30 to 35%, and thoracic aortic aneurysm. Patient follows in the office with Dr. Aguillon. We have been asked to see the patient in consultation for congestive heart failure. Patient examined at the bedside in the emergency room. Patient s lindsay he presented to the hospital with a chief complaint of shortness of breath. Patient states he has been feeling short of breath for the past week and a half. He reports some dizziness as well. Denies any chest pain or pressure. He does report having chills yesterday but denies having a fever. Patient states he did fall a couple weeks ago and has been less active since that time. He reports worsening lower extremity weakness. Blood pressures were initially elevated when he came to the hospital with systolics tween 150 and 190. Blood pressure at the time of examination 111/86. The patient was found to have pulmonary embolism was started on IV heparin. He denies any known history of PE or DVT. He denies any prolonged travel. He does report he has been less mobile the past few weeks after falling. DIAGNOSTICS: - EKG reveals sinus mechanism with right bundle branch block. - Chest xray mild cardiomegaly and interstitial densities. Prominent posterior basal opacity on the lateral view probably representing pleural effusions. Consider CHF with pulmonary vascular congestion. - CTA chest: Acute segmental PE in right upper lobe. RV to LV ratio less than 1. No evidence of right heart strain. Aneurysmal ascending thoracic aorta up to 5.4 cm. Small bilateral pleural effusions. Mild interstitial edema. - Laboratory data: WBC 8.4. Hemoglobin 14.1. Platelet count 260. D-dimer 1.53. Sodium 139. Potassium 3.5. BUN 12. Creatinine 0.96. Troponin 0.051. 0.107. proBNP 3850. - Current home cardiac medications include aspirin 81 mg daily, Lasix 20 mg daily, losartan 100 mg daily, metoprolol succinate 25 mg daily, Lipitor 40 mg daily, hydralazine 100 mg 3 times a day - Most recent echocardiogram obtained in April 2023 revealed ejection fraction 30 to 35% with mild to moderate concentric LVH - Cardiac catheterization history: October 2021 revealing calcified coronary arteries, patent stent in the LAD and left circumflex. Mild to moderate triple- vessel disease. Right dominant system. 02/01/2024 Patient examined this morning the bedside. Patient currently denies chest pain or pressure. He denies shortness of breath. He was evaluated by pulmonary yes terday who thought pulmonary embolism was unlikely. However they recommended to continue IV heparin and will repeat CT angio tomorrow. Upper and lower Dopplers were negative for DVT. Patient remains on IV Lasix. Kidney function remained stable. Echocardiogram reveals EF 30 to 35%, mild MR, trace TR. 02/02/24 Patient seen and examined. Patient is stating that he feels a lot better today. He remains on a heparin drip and is scheduled for repeat CTA per pulmonary. No lower extremity edema. Blood pressure 163/110, heart rate 60s, pulse ox 97% on room air. 02/03/2024 Patient is seen and examined. He is continued on heparin drip per pulmonary medicine. He did not have repeat CTA yesterday and is unclear why this was not done. Nursing will follow-up. Blood pressure remains elevated and amlodipine was added to his medication regime yesterday. Blood pressure 186/98, heart rate in the 50s and 60s, pulse ox 94% on room air. PHYSICAL EXAM: VITAL SIGNS: Reviewed. GENERAL: Well-developed in no acute distress. HEENT: Head is normocephalic. Pupils are equal, round. Sclerae anicteric. Mucous membranes of the mouth are moist. Neck supple. No JVD or thyromegaly LUNGS: Respirations even and unlabored. Lungs essentially clear to auscultation bilaterally. HEART: Regular rate and rhythm. S1 and S2 heard. ABDOMEN: Soft. Nondistended. Nontender. EXTREMITIES: No clubbing or cyanosis. Peripheral pulses intact. Trace bilateral lower extremity edema NEUROLOGIC: Awake and alert. Oriented x 3. ASSESSMENT: Shortness of breath Acute right upper lobe pulmonary embolism, without evidence of RV strain per CT, however, PE unlikely per pulmonary evaluation Mild acute on chronic heart failure with reduced EF Small bilateral pleural effusions Coronary artery disease with previous stenting of the LAD and circumflex Ischemic cardiomyopathy, 3035% Hypertension, uncontrolled Hyperlipidemia Obstructive sleep apnea Thoracic aortic aneurysm, measuring 5.4 cm Obesity: BMI 37.4 PLAN: Continue current cardiac medications: Aspirin 81 mg daily, atorvastatin 40 mg daily, Farxiga 10 mg daily, hydralazine 100 mg 3 times daily, losartan 100 mg daily, Toprol-XL 25 mg daily, Aldactone 25 mg daily Increase amlodipine to 10 mg daily and add clonidine 0.1 mg 3 times daily Continue IV heparin per pulmonary. Continue Lasix oral 40 mg daily Daily weights, accurate intake and output, and monitoring of kidney function Further recommendations pending patient course Nurse practitioner note has been reviewed by physician. Signing provider agrees with the documented findings, assessment, and plan of care documented by [facility] [employer] ASSIST[facility] as a scribe. Objective - Vital Signs Vital signs: Vital Signs Temp 97.7 F 02/03/24 08:05 Pulse 68 02/03/24 09:51 Resp 18 02/03/24 08:05 BP 186/98 02/03/24 08:05 Pulse Ox 94 L 02/03/24 08:05 FiO2 Intake & Output 02/02/24 02/03/24 02/03/24 18:59 06:59 18:59 Intake Total 1600.909 250 Output Total 950 200 Balance 650.909 50 Weight 133.4 kg Intake: Intake, IV Titration 200.909 250 Amount Heparin Sod,Pork in 0.45% 200.909 250 NaCl 25,000 unit In 0.45 % NaCl 1 250ml.bag @ 16. 097 UNITS/KG/HR 23 mls/hr IV .[id number] [facility] Rx#: [id number] Oral 1400 Output: Urine 950 200 Other: Voiding Method External Catheter External Catheter # Voids 2 # Bowel Movements 2 - Labs CBC & Chem 7: 02/02/24 10:12 02/02/24 10:12 Labs: Abnormal Lab Results - Last 24 Hours (Table) 02/02/24 02/02/24 02/02/24 Range/Units 10:12 10:12 10:12 RDW 15.7 H (11.5-15.5) % APTT 90.8 H (22.0-30.0) sec Chloride 108 H (98-107) mmol/L Glucose 105 H (74-99) mg/dL POC Glucose (mg/dL) (70-110) mg/dL 02/02/24 02/02/24 02/02/24 Range/Units 11:58 17:05 20:09 RDW (11.5-15.5) % APTT 79.7 H (22.0-30.0) sec Chloride (98-107) mmol/L Glucose (74-99) mg/dL POC Glucose (mg/dL) 114 H 113 H (70-110) mg/dL 02/03/24 Range/Units 05:54 RDW (11.5-15.5) % APTT (22.0-30.0) sec Chloride (98-107) mmol/L Glucose (74-99) mg/dL POC Glucose (mg/dL) 113 H (70-110) mg/dL
[2024-02-03 10:44] LABS: Basophils # (A) 0.1 k/uL (0-0.2); Basophils % (A) 1 %; Eosinophils # (A) 0.4 k/uL (0-0.7); Eosinophils % (A) 5 %; HCT 47.8 % (39.0-53.0); HGB 14.9 gm/dL (13.0-17.5); Hypochromasia Moderate; Lymphocytes # (A) 1.9 k/uL (1.0-4.8); Lymphocytes % (A) 20 %; MCH 28.3 pg (25.0-35.0); MCHC 31.2 g/dL (31.0-37.0); MCV 90.8 fL (80.0-100.0); Mean Platelet Volume 7.9; Monocytes # (A) 0.5 k/uL (0-1.0); Monocytes % (A) 5 %; Neutrophils # (A) 6.3 k/uL (1.3-7.7); Neutrophils % (A) 68 %; Platelet Count 305 k/uL (150-450); RBC 5.26 m/uL (4.30-5.90); RDW 15.8 % (11.5-15.5); WBC 9.3 k/uL (3.8-10.6)
[2024-02-03 11:25] LABS: African American GFR (CKD) >90 (>60 ml/min/1.73 sqM); Anion Gap 9 mmol/L; Blood Urea Nitrogen 18 mg/dL (9-20); Calcium 9.4 mg/dL (8.4-10.2); Carbon Dioxide 26 mmol/L (22-30); Chloride 106 mmol/L (98-107); Glucose 107 mg/dL (74-99); Non-African American GFR(CKD) 80 (>60 ml/min/1.73 sqM); Potassium 3.4 mmol/L (3.5-5.1); Sodium 141 mmol/L (137-145)
[2024-02-03 11:54] LABS: Glucose,Whole Blood 123 mg/dL (70-110)
[2024-02-03] MEDS: Apixaban Initiation Dose--VTE 5 MG TAB PO SCH (12:00)
--- NOTE | 2024-02-03 13:41 | P.PN ---
Subjective Progress Note Date: 02/03/24 68-year-old male with a PMH of CAD status post stents, systolic CHF (EF 30 to 35% on echo from 04/26), type II DM, hypertension, hyperlipidemia, SANJU who presents to the emergency room with complaints of shortness of breath. States for the last 2 weeks she has had increased shortness of breath that gets worse on exertion. He uses the CPAP and sitting up to relieve the shortness of breath. However today, patient reported that the shortness of breath was intolerable and he could not get up out of bed and decided to seek emergency services. Of note he was diagnosed with a thoracic aortic aneurysm 2 years ago and was following with a CT surgeon, but per patient "the surgeon told me I did not need to have an operation ". As the patient is seeing this, his looks at me and shakes her head no in disagreement. Imaging: - EKG done in the ER showed heart rate of 92 bpm, sinus rhythm with occasional ventricular premature complexes with occasional supraventricular premature complexes, right bundle branch block, and QTc 450. - ER CXR: Mild cardiomegaly and interstitial densities. Prominent posterior basilar opacity on the lateral view probably representing pleural effusions. Consider CHF pulmonary vascular congestion. 01/31/2024 patient seen and examined at bedside. Patient still feels short of breath but is improved compared to admission. He denies headaches, focal weakness, changes in vision, chest pain, calf tenderness, abdominal pain. No acute events overnight. WBC 8.4 hemoglobin 14.1 platelet count 260,000 PTT 40 sodium 139 potassium 3.5 chloride 106 bicarb 24 BUN 12 creatinine 0.96 glucose 103 calcium 9.1 troponin 0.107. CTA chest showed acute segmental PE in the right upper lobe, aneurysmal ascending thoracic aorta up to 5.4 cm. No dissection. Small bilateral pleural effusions. Mild interstitial edema. Brain CT was negative for acute hemorrhage, infarct or mass effect. 02/01/2024 Pt back on room air, and feels much better today. BPs are better controlled as well. 02/02/2024 patient seen and examined at bedside. Patient noted improved breathing overnight. No acute events overnight. WBC 12.1 hemoglobin 15.4 platelet count 295 PTT 141.8 sodium 140 potassium 3.6 chloride 108 bicarb 24 BUN 17 creatinine 0.99 glucose 105 calcium 9.4 Review of systems: Pertinent positives and negatives as discussed in HPI, a complete review of systems was performed and all other systems are negative. Pertinent imaging and labs reviewed. Physical examination: Vital signs reviewed General: non toxic, no distress, appears at stated age Derm: no unusual rashes/lesions, warm Head: atraumatic, normocephalic, symmetric Eyes: EOMI, anicteric sclera, pupils equal round reactive to light ENT: Nose and ears atraumatic Neck: No cervical lymphadenopathy, trachea midline, supple Mouth: no lip lesion, mucus membranes moist Cardiovascular: S1S2 reg, no murmur Lungs: CTA bilateral, no rhonchi, no rales, no accessory muscle use Abdominal: soft, nontender to palpation, no guarding Ext: muscle strength 5 out of 5 in all 4 extremities grossly, no gross muscle atrophy, no contractures, positive dorsalis pedis pulse bilateral, bilateral +1 pitting edema of the lower extremity Neuro: CN II-XI grossly intact, no gross focal neuro deficits Psych: Alert and oriented x3, appropriate affect and mood Assessment/Plan: 68-year-old male with a PMH of CAD status post stents, systolic CHF (EF 30 to 35% on echo from 04/26), type II DM, hypertension, hyperlipidemia, history of unrepaired thoracic aortic aneurysm, and SANJU who presents to the emergency room with complaints of shortness of breath. # Hypertensive Emergency on Admission, improved # Acute on Chronic Systolic CHF complicated by hypertensive emergency, improving, not on GDMT # Elevated troponins secondary to type II NSTEMI, stable -Daily weights -Strict intake and output monitoring. Limit to 2 L daily -Initial blood pressure on arrival 220/121, today at 186/98 -Was started on nitroglycerin drip 5 mcg/min in the ED -Continue Home hydralazine 100 mg p.o. 3 times daily, metoprolol succinate 25 mg p.o. daily and losartan 100 mg p.o. daily -Spironolactone 25 mg p.o. daily -Cardiology consulted. Continue Lasix 40 mg p.o. daily and Farxiga 10 mg p.o. daily. Increase amlodipine to 10 mg daily and added clonidine 0.1 mg 3 times daily # Non-massive right apical PE, provoked # Debility Patient reported that he had falls in late December that caused him to be immobile for prolonged periods of the day. -Cardiac monitoring -O2 NC as needed -Last echo echo on 01/30 showed ejection fraction of 30 to 35% with severe hypokinesis mild mitral regurgitation and mild aortic regurgitation and dilated ascending aorta -Discontinued heparin drip -Negative influenza type A and B, RSV, and COVID -Pro-Luis 0.13 -Pulmonology following. Will defer repeat CT in 3 months. Initiated apixaban 10 mg p.o. twice daily today. Transition to oral pack on discharge -PT/OT consulted. Recommended home with home health PT Chronic Conditions: #Obstructive sleep apnea on CPAP -Supportive oxygen as needed -Advised to use CPAP #Hypertension -Continue home medications once reconciled by pharmacy #Hyperlipidemia -Continue home medications once reconciled by pharmacy #Type II DM -Hold home medications -Ordered sliding scale and Accu-Cheks #CAD status post stents -Continue home medications Aspirin and statin F: Fluid restrict to 2 L E: None N: Heart healthy diet DVT ppx: Heparin drip for PE GI ppx: Protonix 40 mg p.o. daily CODE STATUS: Full code Dispo: Pending clinical course Altagracia Funes MD PGY-1/Support Specialist Dictation was produced using [employer] dictation software. please excuse any grammatical, word or spelling errors. I saw and evaluated the patient during the manning and critical portions of this encounter, and discussed the case in detail with the resident author of this note, I agree with the Assessment and Plan, and my changes, if any, are noted b elow. Patient with continued elevated BP. Amlodipine dose increased to 10 mg PO QD, started on Clonidine 0.1 mg PO TID. Monitor BP for one more day. Heparin drip switched to Eliquis by Pulmonary, no need for repeat CTA. Needs outpatient CT surgery followup for AAA. Anticipate DC tomorrow if BP remains controlled. Objective - Vital Signs Vital signs: Vital Signs Temp 97.8 F 02/03/24 11:57 Pulse 68 02/03/24 12:36 Resp 17 02/03/24 11:57 BP 144/99 02/03/24 11:57 Pulse Ox 95 02/03/24 11:57 FiO2 Intake & Output 02/02/24 02/03/24 02/03/24 18:59 06:59 18:59 Intake Total 1600.909 250 Output Total 950 200 Balance 650.909 50 Weight 133.4 kg Intake: Intake, IV Titration 200.909 250 Amount Heparin Sod,Pork in 0.45% 200.909 250 NaCl 25,000 unit In 0.45 % NaCl 1 250ml.bag @ 16. 097 UNITS/KG/HR 23 mls/hr IV .[id number] [facility] Rx#: [id number] Oral 1400 Output: Urine 950 200 Other: Voiding Method External Catheter External Catheter External Catheter # Voids 2 # Bowel Movements 2 - Labs CBC & Chem 7: 02/03/24 09:53 02/03/24 09:53 Labs: Abnormal Lab Results - Last 24 Hours (Table) 02/02/24 02/02/24 02/03/24 Range/Units 17:05 20:09 05:54 RDW (11.5-15.5) % APTT 79.7 H (22.0-30.0) sec Potassium (3.5-5.1) mmol/L Glucose (74-99) mg/dL POC Glucose (mg/dL) 113 H 113 H (70-110) mg/dL 02/03/24 02/03/24 02/03/24 Range/Units 09:53 09:53 11:52 RDW 15.8 H (11.5-15.5) % APTT (22.0-30.0) sec Potassium 3.4 L (3.5-5.1) mmol/L Glucose 107 H (74-99) mg/dL POC Glucose (mg/dL) 123 H (70-110) mg/dL
--- NOTE | 2024-02-03 15:07 | P.PN ---
Subjective Progress Note Date: 02/03/24 Principal diagnosis: Acute systolic congestive heart failure This is a obese 68-year-old male patient with known history of coronary artery disease, previous coronary angioplasty and stenting and additional history of congestion heart failure with an ejection fraction of 30 to 35% and mild to moderate LVH. The patient has undergone cardiac catheterization back in October 2021 revealing calcified coronaries, patent stent to LAD and circumflex and mild to moderate triple-vessel coronary artery disease. The patient also has other comorbidities including a ascending thoracic aortic aneurysm measuring 5.4 cm in size. The patient is also known to have hypertension hyperlipidemia and obstructive sleep apnea and he has been very compliant with CPAP therapy. The patient came into the hospital because of worsening shortness of breath. His CBC was essentially within normal limits. D-dimer was at 1.5. Troponin was 0.1 x 2 respectively and the BUN was 12 with a creatinine of 0.9 and a sodium level 139. The proBNP level was elevated at 3850. A CT angiogram of the chest was done. There is evidence of cardiomegaly, aneurysmal dilatation of the ascending thoracic aorta measuring 5.4 cm in size without evidence of dissection. There is interstitial edema. Questionable segmental PE in the right upper lobe. Based on that, the patient was started on IV heparin and pulmonary consultation was requested. He denies having any pleurisy or hemoptysis. He is currently on 2 L of oxygen by nasal cannula with a pulse ox of 94%. Given IV Lasix in the emergency department with excellent diuresis and clinical response. His cardiac rhythm is sinus. On 02/01/2024, the patient is feeling less short of breath compared to yesterday. The patient was placed on room air oxygen. He has produced excellent urine output over the past 24 hours. He remains on Lasix 20 mg IV every 12 hours. Fluid balance has been essentially -1.4 L. The white cell count is at 10 with a hemoglobin 14.5 and a platelet count of 277. BUN is 15 with a creatinine of 0.9 and sodium is at 140. Potassium level is at 2.9. Remains on IV heparin for a suspicion of a pulmonary embolism. I think this is considered to be less likely at this point. Patient was seen on 02/02/2024, patient seems to be doing well today, breathing a lot easier, he is now on room air, O2 saturation 96% chest x-ray on admission is suggestive of pulmonary edema follow-up chest x-ray is pending. Labs today showed relatively normal CBC PTT is 90.8 electrolytes are normal renal profile is normal last BNP is just over 3000. Procalcitonin level is 0.13 Patient was seen today on 02/03/2024, remains on heparin, I do not see any need for repeat CT angiogram of the chest now, that could be done on outpatient basis in the next 3 months. In the meantime I would recommend changing the patient to Eliquis, and consider the patient for discharge planning if cleared by other consultants, and follow-up on outpatient basis. Labs from today were all reviewed including CBC which is normal electrolytes are normal potassium is a bit low at 3.4, and renal profile is normal, I went ahead today and discontinued his heparin and started the patient on Eliquis as per protocol. Objective - Vital Signs Vital signs: Vital Signs Temp 97.8 F 02/03/24 11:57 Pulse 65 02/03/24 13:50 Resp 17 02/03/24 13:50 BP 144/99 02/03/24 11:57 Pulse Ox 95 02/03/24 11:57 FiO2 Intake & Output 02/02/24 02/03/24 02/03/24 18:59 06:59 18:59 Intake Total 1600.909 250 Output Total 950 200 Balance 650.909 50 Weight 133.4 kg Intake: Intake, IV Titration 200.909 250 Amount Heparin Sod,Pork in 0.45% 200.909 250 NaCl 25,000 unit In 0.45 % NaCl 1 250ml.bag @ 16. 097 UNITS/KG/HR 23 mls/hr IV .[id number] [facility] Rx#: [id number] Oral 1400 Output: Urine 950 200 Other: Voiding Method External Catheter External Catheter External Catheter # Voids 2 # Bowel Movements 2 - Exam GENERAL: Revealed a 68-year-old white male in no distress, on room air. Head: Atraumatic, normocephalic HEENT: Pupils are equal, round. Sclerae anicteric. Mucous membranes of the mouth are moist. Neck supple. No JVD or thyromegaly LUNGS: Respirations even and unlabored. Clear breath sound bilaterally no crackles rhonchi or wheezes HEART: Regular rate and rhythm. S1 and S2 heard. ABDOMEN: Soft. Nondistended. Nontender. EXTREMITIES: Normal range of motion. No clubbing or cyanosis. Peripheral pulses intact. Trace bilateral lower extremity edema NEUROLOGIC: Alert oriented x 3 no gross focal deficit psychiatric: Normal mood affect and no mental status examined - Labs CBC & Chem 7: 02/03/24 09:53 02/03/24 09:53 Labs: Abnormal Lab Results - Last 24 Hours (Table) 02/02/24 02/02/24 02/03/24 Range/Units 17:05 20:09 05:54 RDW (11.5-15.5) % APTT 79.7 H (22.0-30.0) sec Potassium (3.5-5.1) mmol/L Glucose (74-99) mg/dL POC Glucose (mg/dL) 113 H 113 H (70-110) mg/dL 02/03/24 02/03/24 02/03/24 Range/Units 09:53 09:53 11:52 RDW 15.8 H (11.5-15.5) % APTT (22.0-30.0) sec Potassium 3.4 L (3.5-5.1) mmol/L Glucose 107 H (74-99) mg/dL POC Glucose (mg/dL) 123 H (70-110) mg/dL Assessment and Plan Assessment: Impression: Acute on chronic dyspnea, likely on the basis of CHF as the patient is known to have cardiomyopathy with an ejection fraction of 30 to 55%, elevated proBNP level and evidence of interstitial edema bilateral pleural effusion Possible pulmonary embolism, I reviewed the CT of the chest/CT angiogram, holly picromán, no need to repeat his CT angiogram today, but would recommend repeat in 3 months after taking Eliquis for the next 3 months. Coronary artery disease with previous coronary intervention and stenting of the LAD and circumflex and the patient's last cardiac catheterization from 2021 shows mild to moderate triple-vessel disease. Positive troponin leak for now, likely type II myocardial ischemia CHF with impaired LV function and ejection fraction of 30 to 35% Obstructive sleep apnea maintained on CPAP therapy Ascending thoracic aortic aneurysm measuring 5.4 cm in size Hypertension Hyperlipidemia Peripheral neuropathy Diabetes mellitus type 2 BPH History of skin cancer/basal cell carcinoma of the skin Previous history of myocardial infarction Recommendation: Change heparin to Eliquis Consider discharge planning if cleared by other consultants on the case Follow-up on outpatient basis Continue present supportive care measures Continue Lasix/diuretics Resume home meds Will continue to follow Time with Patient: Less than 30
[2024-02-03 16:39] LABS: Glucose,Whole Blood 124 mg/dL (70-110)
[2024-02-03] MEDS ORDERED: Potassium Replacement Protocol 1 EACH MISC MISCELLANE PRN (19:15)
[2024-02-03 20:04] LABS: Glucose,Whole Blood 121 mg/dL (70-110)
[2024-02-03] MEDS: POTASSIUM CHLORIDE ER 20 MEQ TAB.ER PO SCH (22:42)
[2024-02-04 06:04] LABS: Glucose,Whole Blood 124 mg/dL (70-110)
[2024-02-04 07:52] LABS: African American GFR (CKD) 81 (>60 ml/min/1.73 sqM); Anion Gap 13 mmol/L; Blood Urea Nitrogen 19 mg/dL (9-20); Calcium 9.4 mg/dL (8.4-10.2); Carbon Dioxide 24 mmol/L (22-30); Chloride 103 mmol/L (98-107); Glucose 102 mg/dL (74-99); Non-African American GFR(CKD) 70 (>60 ml/min/1.73 sqM); Sodium 140 mmol/L (137-145)
[2024-02-04 07:55] LABS: Potassium 3.7 mmol/L (3.5-5.1)
[2024-02-04 09:59] LABS: Basophils # (A) 0.1 k/uL (0-0.2); Basophils % (A) 1 %; Eosinophils # (A) 0.4 k/uL (0-0.7); Eosinophils % (A) 5 %; HGB 15.3 gm/dL (13.0-17.5); Hypochromasia Moderate; Lymphocytes # (A) 1.8 k/uL (1.0-4.8); Lymphocytes % (A) 21 %; MCH 28.8 pg (25.0-35.0); MCHC 31.3 g/dL (31.0-37.0); Mean Platelet Volume 8.4; Monocytes # (A) 0.4 k/uL (0-1.0); Monocytes % (A) 5 %; Neutrophils # (A) 5.9 k/uL (1.3-7.7); Neutrophils % (A) 68 %; Platelet Count 305 k/uL (150-450); RBC 5.32 m/uL (4.30-5.90); RDW 15.8 % (11.5-15.5); WBC 8.8 k/uL (3.8-10.6)
[2024-02-04 10:30] VITALS: TEMP 97.9
--- NOTE | 2024-02-04 10:45 | P.PN ---
Subjective Progress Note Date: 02/04/24 HISTORY OF PRESENT ILLNESS: This is a 68-year-old male with a past medical history significant for coronary artery disease with previous stenting, congestive heart failure, hypertension, hyperlipidemia, obstructive sleep apnea, cardiomyopathy with ejection fraction 30 to 35%, and thoracic aortic aneurysm. Patient follows in the office with Dr. Aguillon. We have been asked to see the patient in consultation for congestive heart failure. Patient examined at the bedside in the emergency room. Patient s lindsay he presented to the hospital with a chief complaint of shortness of breath. Patient states he has been feeling short of breath for the past week and a half. He reports some dizziness as well. Denies any chest pain or pressure. He does report having chills yesterday but denies having a fever. Patient states he did fall a couple weeks ago and has been less active since that time. He reports worsening lower extremity weakness. Blood pressures were initially elevated when he came to the hospital with systolics tween 150 and 190. Blood pressure at the time of examination 111/86. The patient was found to have pulmonary embolism was started on IV heparin. He denies any known history of PE or DVT. He denies any prolonged travel. He does report he has been less mobile the past few weeks after falling. DIAGNOSTICS: - EKG reveals sinus mechanism with right bundle branch block. - Chest xray mild cardiomegaly and interstitial densities. Prominent posterior basal opacity on the lateral view probably representing pleural effusions. Consider CHF with pulmonary vascular congestion. - CTA chest: Acute segmental PE in right upper lobe. RV to LV ratio less than 1. No evidence of right heart strain. Aneurysmal ascending thoracic aorta up to 5.4 cm. Small bilateral pleural effusions. Mild interstitial edema. - Laboratory data: WBC 8.4. Hemoglobin 14.1. Platelet count 260. D-dimer 1.53. Sodium 139. Potassium 3.5. BUN 12. Creatinine 0.96. Troponin 0.051. 0.107. proBNP 3850. - Current home cardiac medications include aspirin 81 mg daily, Lasix 20 mg daily, losartan 100 mg daily, metoprolol succinate 25 mg daily, Lipitor 40 mg daily, hydralazine 100 mg 3 times a day - Most recent echocardiogram obtained in April 2023 revealed ejection fraction 30 to 35% with mild to moderate concentric LVH - Cardiac catheterization history: October 2021 revealing calcified coronary arteries, patent stent in the LAD and left circumflex. Mild to moderate triple- vessel disease. Right dominant system. 02/01/2024 Patient examined this morning the bedside. Patient currently denies chest pain or pressure. He denies shortness of breath. He was evaluated by pulmonary yes terday who thought pulmonary embolism was unlikely. However they recommended to continue IV heparin and will repeat CT angio tomorrow. Upper and lower Dopplers were negative for DVT. Patient remains on IV Lasix. Kidney function remained stable. Echocardiogram reveals EF 30 to 35%, mild MR, trace TR. 02/02/24 Patient seen and examined. Patient is stating that he feels a lot better today. He remains on a heparin drip and is scheduled for repeat CTA per pulmonary. No lower extremity edema. Blood pressure 163/110, heart rate 60s, pulse ox 97% on room air. 02/03/2024 Patient is seen and examined. He is continued on heparin drip per pulmonary medicine. He did not have repeat CTA yesterday and is unclear why this was not done. Nursing will follow-up. Blood pressure remains elevated and amlodipine was added to his medication regime yesterday. Blood pressure 186/98, heart rate in the 50s and 60s, pulse ox 94% on room air. 02/04/24 Patient seen and examined. Pulmonary medicine has transition heparin to Eliquis VTE protocol. Blood pressure is much improved from yesterday 128/81, heart rate in the 40s. Beta-rebekah will be discontinued. Repeat blood work reviewed with normal electrolytes and renal function. PHYSICAL EXAM: VITAL SIGNS: Reviewed. GENERAL: Well-developed in no acute distress. HEENT: Head is normocephalic. Pupils are equal, round. Sclerae anicteric. Mucous membranes of the mouth are moist. Neck supple. No JVD or thyromegaly LUNGS: Respirations even and unlabored. Lungs essentially clear to auscultation bilaterally. HEART: Regular rate and rhythm. S1 and S2 heard. ABDOMEN: Soft. Nondistended. Nontender. EXTREMITIES: No clubbing or cyanosis. Peripheral pulses intact. Trace bilateral lower extremity edema NEUROLOGIC: Awake and alert. Oriented x 3. ASSESSMENT: Shortness of breath Acute right upper lobe pulmonary embolism, without evidence of RV strain per CT, however, PE unlikely per pulmonary evaluation Mild acute on chronic heart failure with reduced EF Small bilateral pleural effusions Coronary artery disease with previous stenting of the LAD and circumflex Ischemic cardiomyopathy, 30-35% Hypertension, uncontrolled Hyperlipidemia Obstructive sleep apnea Thoracic aortic aneurysm, measuring 5.4 cm Obesity: BMI 37.4 PLAN: Continue current cardiac medications: Aspirin 81 mg daily, atorvastatin 40 mg daily, Farxiga 10 mg daily, hydralazine 100 mg 3 times daily, losartan 100 mg daily, Aldactone 25 mg daily, amlodipine to 10 mg daily and add clonidine 0.1 mg 3 times daily Patient is on Eliquis VTE protocol Discontinue beta-rebekah due to bradycardia Patient is cleared for discharge from cardiology. Patient may follow-up with Dr. Aguillon in 1 week. Nurse practitioner note has been reviewed by physician. Signing provider agrees with the documented findings, assessment, and plan of care documented by DIE MOUNTER as a scribe. Objective - Vital Signs Vital signs: Vital Signs Temp 97.4 F L 02/04/24 04:00 Pulse 60 02/04/24 08:20 Resp 17 02/04/24 04:00 BP 145/84 02/04/24 04:00 Pulse Ox 95 02/04/24 04:00 FiO2 Intake & Output 02/03/24 02/04/24 02/04/24 18:59 06:59 18:59 Intake Total 240 240 Output Total 600 0 600 Balance -600 240 -360 Weight 138.9 kg Intake: Oral 240 240 Output: Urine 600 0 600 Other: Voiding Method External Catheter External Catheter # Voids 0 # Bowel Movements 0 - Labs CBC & Chem 7: 02/04/24 05:58 02/04/24 05:58 Labs: Abnormal Lab Results - Last 24 Hours (Table) 02/03/24 02/03/24 02/03/24 Range/Units 09:53 09:53 11:52 RDW 15.8 H (11.5-15.5) % Potassium 3.4 L (3.5-5.1) mmol/L Glucose 107 H (74-99) mg/dL POC Glucose (mg/dL) 123 H (70-110) mg/dL 02/03/24 02/03/24 02/04/24 Range/Units 16:37 20:03 05:58 RDW (11.5-15.5) % Potassium (3.5-5.1) mmol/L Glucose 102 H (74-99) mg/dL POC Glucose (mg/dL) 124 H 121 H (70-110) mg/dL 02/04/24 Range/Units 06:01 RDW (11.5-15.5) % Potassium (3.5-5.1) mmol/L Glucose (74-99) mg/dL POC Glucose (mg/dL) 124 H (70-110) mg/dL
[2024-02-04 11:14] LABS: Glucose,Whole Blood 102 mg/dL (70-110)
--- NOTE | 2024-02-04 13:19 | P.PN ---
Subjective Progress Note Date: 02/04/24 Principal diagnosis: Acute systolic congestive heart failure This is a obese 68-year-old male patient with known history of coronary artery disease, previous coronary angioplasty and stenting and additional history of congestion heart failure with an ejection fraction of 30 to 35% and mild to moderate LVH. The patient has undergone cardiac catheterization back in October 2021 revealing calcified coronaries, patent stent to LAD and circumflex and mild to moderate triple-vessel coronary artery disease. The patient also has other comorbidities including a ascending thoracic aortic aneurysm measuring 5.4 cm in size. The patient is also known to have hypertension hyperlipidemia and obstructive sleep apnea and he has been very compliant with CPAP therapy. The patient came into the hospital because of worsening shortness of breath. His CBC was essentially within normal limits. D-dimer was at 1.5. Troponin was 0.1 x 2 respectively and the BUN was 12 with a creatinine of 0.9 and a sodium level 139. The proBNP level was elevated at 3850. A CT angiogram of the chest was done. There is evidence of cardiomegaly, aneurysmal dilatation of the ascending thoracic aorta measuring 5.4 cm in size without evidence of dissection. There is interstitial edema. Questionable segmental PE in the right upper lobe. Based on that, the patient was started on IV heparin and pulmonary consultation was requested. He denies having any pleurisy or hemoptysis. He is currently on 2 L of oxygen by nasal cannula with a pulse ox of 94%. Given IV Lasix in the emergency department with excellent diuresis and clinical response. His cardiac rhythm is sinus. On 02/01/2024, the patient is feeling less short of breath compared to yesterday. The patient was placed on room air oxygen. He has produced excellent urine output over the past 24 hours. He remains on Lasix 20 mg IV every 12 hours. Fluid balance has been essentially -1.4 L. The white cell count is at 10 with a hemoglobin 14.5 and a platelet count of 277. BUN is 15 with a creatinine of 0.9 and sodium is at 140. Potassium level is at 2.9. Remains on IV heparin for a suspicion of a pulmonary embolism. I think this is considered to be less likely at this point. Patient was seen on 02/02/2024, patient seems to be doing well today, breathing a lot easier, he is now on room air, O2 saturation 96% chest x-ray on admission is suggestive of pulmonary edema follow-up chest x-ray is pending. Labs today showed relatively normal CBC PTT is 90.8 electrolytes are normal renal profile is normal last BNP is just over 3000. Procalcitonin level is 0.13 Patient was seen today on 02/03/2024, remains on heparin, I do not see any need for repeat CT angiogram of the chest now, that could be done on outpatient basis in the next 3 months. In the meantime I would recommend changing the patient to Eliquis, and consider the patient for discharge planning if cleared by other consultants, and follow-up on outpatient basis. Labs from today were all reviewed including CBC which is normal electrolytes are normal potassium is a bit low at 3.4, and renal profile is normal, I went ahead today and discontinued his heparin and started the patient on Eliquis as per protocol. Patient was seen today on 02/04/2024, patient is doing great, relatively asymptomatic, hardly any pulmonary symptoms, on room air, not in any distress. WBC count is 8.8 hemoglobin 15.3 basic metabolic profile is normal and renal profile is normal Objective - Vital Signs Vital signs: Vital Signs Temp 97.9 F 02/04/24 08:20 Pulse 56 L 02/04/24 13:09 Resp 16 02/04/24 08:20 BP 128/81 02/04/24 08:20 Pulse Ox 97 02/04/24 08:20 FiO2 Intake & Output 02/03/24 02/04/24 02/04/24 18:59 06:59 18:59 Intake Total 240 420 Output Total 600 0 600 Balance -600 240 -180 Weight 138.9 kg Intake: Oral 240 420 Output: Urine 600 0 600 Other: Voiding Method External Catheter External Catheter External Catheter # Voids 0 # Bowel Movements 0 - Exam GENERAL: Revealed a 68-year-old white male in no distress, on room air. Head: Atraumatic, normocephalic HEENT: Pupils are equal, round. Sclerae anicteric. Mucous membranes of the mouth are moist. Neck supple. No JVD or thyromegaly LUNGS: Respirations even and unlabored. Clear breath sound bilaterally no crackles rhonchi or wheezes HEART: Regular rate and rhythm. S1 and S2 heard. ABDOMEN: Soft. Nondistended. Nontender. EXTREMITIES: Normal range of motion. No clubbing or cyanosis. Peripheral pulses intact. Trace bilateral lower extremity edema NEUROLOGIC: Alert oriented x 3 no gross focal deficit psychiatric: Normal mood affect and no mental status examined - Labs CBC & Chem 7: 02/04/24 05:58 02/04/24 05:58 Labs: Abnormal Lab Results - Last 24 Hours (Table) 02/03/24 02/03/24 02/04/24 Range/Units 16:37 20:03 05:58 RDW 15.8 H (11.5-15.5) % Glucose (74-99) mg/dL POC Glucose (mg/dL) 124 H 121 H (70-110) mg/dL 02/04/24 02/04/24 Range/Units 05:58 06:01 RDW (11.5-15.5) % Glucose 102 H (74-99) mg/dL POC Glucose (mg/dL) 124 H (70-110) mg/dL Assessment and Plan Assessment: Impression: Acute on chronic dyspnea, likely on the basis of CHF as the patient is known to have cardiomyopathy with an ejection fraction of 30 to 55%, elevated proBNP level and evidence of interstitial edema bilateral pleural effusion Possible pulmonary embolism, I reviewed the CT of the chest/CT angiogram, suspicious, no need to repeat his CT angiogram today, but would recommend repeat in 3 months after taking Eliquis for the next 3 months. Coronary artery disease with previous coronary intervention and stenting of the LAD and circumflex and the patient's last cardiac catheterization from 2021 shows mild to moderate triple-vessel disease. Positive troponin leak for now, likely type II myocardial ischemia CHF with impaired LV function and ejection fraction of 30 to 35% Obstructive sleep apnea maintained on CPAP therapy Ascending thoracic aortic aneurysm measuring 5.4 cm in size Hypertension Hyperlipidemia Peripheral neuropathy Diabetes mellitus type 2 BPH History of skin cancer/basal cell carcinoma of the skin Previous history of myocardial infarction Recommendation: Continue Eliquis Consider discharge planning Follow-up on outpatient basis Continue present supportive care measures Continue Lasix/diuretics Will continue to follow Time with Patient: Less than 30
--- NOTE | 2024-02-04 15:24 | P.DS ---
Providers Date of admission: 01/30/24 22:03 Attending physician: Mekhi Díaz MD Consults: 01/30/24 22:03 Consult Physician Routine Consulting Provider: Aung Pate Consult Reason/Comments: heart failure Do you want consulting provider notified?: Yes 01/31/24 08:45 Consult Physician Routine Consulting Provider: Quique Ross Consult Reason/Comments: PE, SOB Do you want consulting provider notified?: Yes Primary care physician: [facility] Course: Hospital Course: 68-year-old male with a PMH of CAD status post stents, systolic CHF (EF 30 to 35% on echo from 04/26), type II DM, hypertension, hyperlipidemia, SANJU who presents to the emergency room with complaints of shortness of breath. EKG done in the ER showed heart rate of 92 bpm, sinus rhythm with occasional ventricular premature complexes with occasional supraventricular premature complexes, right bundle branch block, and QTc 450. ER CXR showed mild cardiomegaly and interstitial densities. Prominent posterior basilar opacity on the lateral view probably representing pleural effusions. Consider CHF pulmonary vascular congestion. Patient admitted for the evaluation of pulmonary embolism, hypertensive emerg ency and acute on chronic systolic heart failure. Cardiology and pulmonary consulted. Cardiac monitoring placed, supplemental O2 provided, troponins trended, echocardiogram ordered, heparin drip provided, IV Lasix ordered, ultrasound of lower extremities ordered, CTA chest ordered, nitroglycerin provided in the ED, and home hydralazine metoprolol and losartan initiated. Spironolactone and Farxiga provided. Venous Doppler ultrasound of lower extremity showed negative for DVT. Echocardiogram showed left ventricular ejection fraction estimated at 30 to 35% with severe global hypokinesis and mild mitral and aortic regurgitation. CTA chest ordered showed acute segmental PE in the right upper lobe, aneurysmal ascending thoracic aorta up to 5.4 cm no dissection. Lasix transition to oral 40 mg daily. Amlodipine dose increased and clonidine added for blood pressure control. PT OT consulted for evaluation and recommended outpatient rehab. Patient symptoms improved throughout hospital stay. Patient discharged today with plans for outpatient rehab and was prescribed oral Aldactone, clonidine, apixaban starter pack for VTE, Lasix with increased dose to 40 mg and amlodipine. Metoprolol was discontinued. Farxiga not provided as the ahn was too high for the patient. Patient advised to follow-up with track production engineer, PCP, and cardiothoracic surgery for thoracic aorta aneurysm. Final Diagnosis: # Hypertensive Emergency, resolved # Acute on Chronic Systolic CHF complicated by hypertensive emergency, resolved # Elevated troponins secondary to type II NSTEMI, stable # Non-massive right apical PE, provoked, stable # Debility, improving Physical examination: Vital signs reviewed General: non toxic, no distress, appears at stated age, normal weight Derm: no unusual rashes/lesions, warm Head: atraumatic, normocephalic, symmetric Eyes: EOMI, anicteric sclera, pupils equal round reactive to light ENT: Nose and ears atraumatic Neck: No cervical lymphadenopathy, trachea midline, supple Mouth: no lip lesion, mucus membranes moist Cardiovascular: S1S2 reg, no murmur Lungs: CTA bilateral, no rhonchi, no rales, no accessory muscle use Abdominal: soft, nondistended, nontender to palpation, no guarding Ext: muscle strength 5 out of 5 in all 4 extremities grossly, no gross muscle atrophy, no contractures, positive dorsalis pedis pulse bilateral, no edema Neuro: CN II-XI grossly intact, no gross focal neuro deficits Psych: Alert, oriented, appropriate affect and mood I saw and evaluated the patient during the manning and critical portions of this encounter, and discussed the case in detail with the resident author of this note, I agree with the Assessment and Plan, and my changes, if any, are noted below. Patient with improved BP. Metoprolol discontinued due to bradycardia. Antihypertensive medications prescribed to pharmacy along with Eliquis. Advised 2g salt restriction and 1.5 L fluid restriction. Follow up with PCP within 1-2 days, Cardiology within [address] surgery within 1 week for routine surveillance of AAA. Patient Condition at Discharge: Stable Plan - Discharge Summary Discharge Rx Participant: No New Discharge Prescriptions: New Spironolactone [Aldactone] 25 mg PO DAILY #30 tab cloNIDine HCL [Catapres] 0.1 mg PO TID #90 tab Apixaban [Eliquis Starter Pack (for VTE)] 5 - 10 mg PO DIRECTED 30 Days #1 each Furosemide [Lasix] 40 mg PO DAILY #30 tab amLODIPine [Norvasc] 10 mg PO DAILY #30 tab Continue Losartan Potassium 100 mg PO DAILY Budesonide/Glycopyr/Formoterol [Breztri Aerosphere Inhaler] 1 puff INHALATION RT-DAILY PRN PRN Reason: Shortness Of Breath buPROPion XL [Wellbutrin XL] 150 mg PO DAILY Aspirin 81 mg PO DAILY #30 tab Atorvastatin [Lipitor] 40 mg PO DAILY Potassium Chloride ER [K-Dur 20] 20 meq PO DAILY hydrALAZINE HCL [Apresoline] 100 mg PO TID-W/MEALS #90 tab Discontinued Metoprolol Succinate (ER) [Toprol XL] 25 mg PO DAILY Furosemide [Lasix] 20 mg PO DAILY #30 tab Discharge Medication List Losartan Potassium 100 mg PO DAILY 04/04/21 [History] Budesonide/Glycopyr/Formoterol [Breztri Aerosphere Inhaler] 1 puff INHALATION RT-DAILY PRN 04/02/23 [History] Aspirin 81 mg PO DAILY #30 tab 04/06/23 [Rx] Atorvastatin [Lipitor] 40 mg PO DAILY 06/27/23 [History] Potassium Chloride ER [K-Dur 20] 20 meq PO DAILY 10/03/23 [History] buPROPion XL [Wellbutrin XL] 150 mg PO DAILY 01/31/24 [History] Apixaban [Eliquis Starter Pack (for VTE)] 5 - 10 mg PO DIRECTED 30 Days #1 each 02/04/24 [Rx] Furosemide [Lasix] 40 mg PO DAILY #30 tab 02/04/24 [Rx] Spironolactone [Aldactone] 25 mg PO DAILY #30 tab 02/04/24 [Rx] amLODIPine [Norvasc] 10 mg PO DAILY #30 tab 02/04/24 [Rx] cloNIDine HCL [Catapres] 0.1 mg PO TID #90 tab 02/04/24 [Rx] hydrALAZINE HCL [Apresoline] 100 mg PO TID-W/MEALS #90 tab 02/04/24 [Rx] Follow up Appointment(s)/Referral(s): Delta Aguillon MD [STAFF PHYSICIAN] - 1 Week Bryce Astudillo MD [Primary Care Provider] - 1-2 days Roderick Ramírez MD [STAFF PHYSICIAN] - [facility] [NON-STAFF] - Activity/Diet/Wound Care/Special Instructions: Please see PCP, Cardiology and Cardiothoracic surgery Discharge Disposition: HOME WITH HOME HEALTH SERVICES
[2024-02-04 15:29] VITALS: BP 122/64; PULSE 48; RESP 18
== END 2024-02-04 17:10 | disposition home health service (06) | DRG 280 ==
LOC: EC 18:00 → 3SCARD 22:03
PROVIDERS: ADMIT Internal Medicine; ATTEND Internal Medicine
DX: I16.1 Hypertensive emergency (principal); I26.99 Other pulmonary embolism without acute cor pulmonale; I21.A1 Myocardial infarction type 2; I50.23 Acute on chronic systolic (congestive) heart failure; I25.5 Ischemic cardiomyopathy; Z11.52 Encounter for screening for COVID-19; I25.2 Old myocardial infarction; I25.10 Atherosclerotic heart disease of native coronary artery without angina pectoris; E11.40 Type 2 diabetes mellitus with diabetic neuropathy, unspecified; E66.9 Obesity, unspecified; E78.5 Hyperlipidemia, unspecified; G47.33 Obstructive sleep apnea (adult) (pediatric); I11.0 Hypertensive heart disease with heart failure; I71.21 Aneurysm of the ascending aorta, without rupture; N40.0 Benign prostatic hyperplasia without lower urinary tract symptoms; I08.0 Rheumatic disorders of both mitral and aortic valves; E11.51 Type 2 diabetes mellitus with diabetic peripheral angiopathy without gangrene; I45.10 Unspecified right bundle-branch block; I49.1 Atrial premature depolarization; W19.XXXA Unspecified fall, initial encounter; Z68.37 Body mass index [BMI] 37.0-37.9, adult; Z79.01 Long term (current) use of anticoagulants; Z79.82 Long term (current) use of aspirin; Z79.899 Other long term (current) drug therapy; Z85.828 Personal history of other malignant neoplasm of skin; Z86.16 Personal history of COVID-19; Z87.891 Personal history of nicotine dependence; Z95.5 Presence of coronary angioplasty implant and graft; Z96.652 Presence of left artificial knee joint; Z88.0 Allergy status to penicillin; Z88.8 Allergy status to other drugs, medicaments and biological substances; Z90.49 Acquired absence of other specified parts of digestive tract
CPT/HCPCS: 36415; 70450; 71046; 71275; 80048; 80053; 83605; 83735; 83880; 84145; 84484; 85025; 85379; 85610; 85730; 87636; 93005; 93306; 93970; 94640; 94760; 96365; 96366; 96375; 96376; 99291